=== PATIENT | female | born 1930 | race Caucasian/White ===

== ENCOUNTER → 2017-04-13 | Outpatient (CLI) | payer MEDICARE | END | disposition home or self-care (01) | LOC: LABWHC1 15:15 | PROVIDERS: ATTEND Internal Medicine | DX: E03.9 Hypothyroidism, unspecified (principal); N18.3 Chronic kidney disease, stage 3 (moderate) | CPT/HCPCS: 36415; 82330; 83970 ==

== ENCOUNTER 2017-06-21 13:10 | Inpatient (IN) | payer MEDICARE ==
--- NOTE | 2017-06-21 13:39 | ED ---
SOB HPI - General Chief Complaint: Shortness of Breath Stated Complaint: sob, hX CHF Time Seen by Provider: 06/21/17 13:26 Source: patient, EMS Mode of arrival: EMS Limitations: no limitations - History of Present Illness Initial Comments: This is an 86-year-old female with a history of CHF, diabetes, hypertension or presents here department for shortness of breath or she states has been gradually worsening over the last day. She says that she typically does not wear oxygen however has required it today. She states it is worse with exertion and better with rest. Does not seem to be related to position. She has no associated chest pain however does complain of some lightheadedness at times. She does admit to some lower extremity swelling however mild. She states that she has not had a CHF exacerbation in 2 years. Her defensive line coach is Dr. Daigle. She denies any recent travel or surgeries. No history of PE or DVT. No other complaints. - Related Data Home Medications Medication Instructions Recorded Confirmed Bimatoprost [Lumigan .01% Ophth 1 drop RIGHT EYE HS 03/25/14 06/21/17 Soln] Carvedilol [Coreg] 3.125 mg PO BID 03/25/14 06/21/17 Furosemide [Lasix] 20 mg PO DAILY 03/25/14 06/21/17 Levothyroxine Sodium [Synthroid] 50 mcg PO DAILY 03/25/14 06/21/17 Methocarbamol [Robaxin] 500 mg PO TID PRN 03/25/14 06/21/17 glipiZIDE [Glucotrol] 10 mg PO AC-BID 03/25/14 06/21/17 sitaGLIPtin [Januvia] 100 mg PO DAILY 03/25/14 06/21/17 Allopurinol [Allopurinol] 200 mg PO DAILY 03/07/15 06/21/17 Vit C/E/Zn/Coppr/Lutein/Zeaxan 1 cap PO BID 03/07/15 06/21/17 [Preservision Areds 2 Softgel] oxyCODONE-APAP 5-325MG [Percocet 1 tab PO TID PRN 06/21/17 06/21/17 5-325 mg] Allergies Allergy/AdvReac Type Severity Reaction Status Date / Time aspirin Allergy Unknown Verified 06/21/17 14:22 bee pollen [Bee Pollen] Allergy Anaphylaxis Verified 06/21/17 14:22 celecoxib [From Celebrex] Allergy Unknown Verified 06/21/17 14:22 URIC ACIDS AdvReac GOUT Uncoded 06/21/17 13:23 Review of Systems ROS Statement: Those systems with pertinent positive or pertinent negative responses have been documented in the HPI. ROS Other: All systems not noted in ROS Statement are negative. Past Medical History Past Medical History: Coronary Artery Disease (CAD), Cancer, Heart Failure, Diabetes Mellitus, GI Bleed, Hyperlipidemia, Hypertension, Osteoarthritis (OA), Pulmonary Embolus (PE), Sleep Apnea/CPAP/BIPAP, Thyroid Disorder Additional Past Medical History / Comment(s): gout, chronic pain in back hip and leg, diverticulitis, LT EYE BLIND,GLAUCOMA, MAC DEGEBERATION, MURMUR, DIVERTICULAR DX.OVARIAN CYSTS,ANEMIA,SKIN CA,ANEMIA, TRACHEBRONCHITIS WITH REACTIVE BRONCHOSPSM.used to use cpap machine but stopped 1 year ago d/t mask not fitting well. History of Any Multi-Drug Resistant Organisms: None Reported Past Surgical History: Appendectomy, Bowel Resection, Breast Surgery, Cholecystectomy, Coronary Bypass/CABG, Hysterectomy, Orthopedic Surgery, Pacemaker, Tonsillectomy Additional Past Surgical History / Comment(s): pacemaker, AORTIC VALVE REPLACEMENT(TISSUE), CYST REMOVED FROM HAND/HEAD,BOWEL RESECTION D/T DIVERTICULITIS.GEENFIELD FILTER Past Anesthesia/Blood Transfusion Reactions: No Reported Reaction Type of Cardiac Device: Permanent Pacemaker Device Placement Date:: 2010 Past Psychological History: Depression Smoking Status: Former smoker Past Alcohol Use History: None Reported Past Drug Use History: None Reported - Past Family History Father Family Medical History: Cancer Additional Family Medical History / Comment(s): ALCOHOLIC-- 1969 Mother Family Medical History: Cancer, Coronary Artery Disease (CAD), Dementia, Diabetes Mellitus Additional Family Medical History / Comment(s): 1984 General Exam - General Exam Comments Initial Comments: Constitutional: Awake alert Appears comfortable Head: Normocephalic atraumatic Eyes: no conjunctival injection No scleral icterus EOMI Neck: Mild JVD Supple Heart: Regular rate rhythm normal S1-S2 no murmurs Lungs: Clear to auscultation bilaterally No wheezing patient has decreased breath sounds bilaterally Abdomen: Soft nondistended nontender Extremities: Bilateral lower extremity edema that appears chronic DP pulses intact Radial pulses intact Neuro: A&Ox3 No focal neurologic deficits Psych: Appropriate mood and affect Limitations: no limitations Course Vital Signs 06/21/17 13:19 Temperature 98.1 F Pulse Rate 84 Respiratory 20 Rate Blood Pressure 158/68 O2 Sat by Pulse 98 Oximetry - Reevaluation(s) Reevaluation #1: 06/21/17 14:13 EKG showing what appears to be atrial flutter with a controlled rate of 83. Kylah right bundle-branch block. No abnormal ST segment changes or T-wave inversions. QTC is 524. Other intervals are normal Reevaluation #2: 06/21/17 15:07 Patient is comfortable at rest however is requiring 4 L of oxygen. Her BNP is elevated from her baseline. Chest x-ray was unremarkable. She does have a history of PE and I am considering this as an etiology however the patient is unable to undergo a CTA because of her renal function. I did put in for a V/Q however since she is also in what appears to be atrial flutter going to start her on heparin anyway. Her rate is controlled. Going to admit her for CHF exacerbation and possible PE for a VQ scan. Medical Decision Making - Medical Decision Making This is an 86 show female who presents emergency department for shortness of breath. She was requiring quite a bit of oxygen on arrival. She is comfortable on 4 L at rest however gets very dyspneic with exertion. BNP was elevated however chest x-ray was unremarkable. With history of PID consider pulmonary embolism however the patient was unable to undergo CTA because of her renal function. V/Q was put in for evaluation. The patient was started on heparin because of what appears to be atrial flutter with a controlled rate and possibility of PE. Otherwise she is hemodynamically stable. We'll admit her for suspected CHF and possible PE. She was given Lasix. Dr. Daigle was placed on consult. Dr. Guillen accepts the admission. - Lab Data Result diagrams: 06/21/17 13:55 06/21/17 13:55 Lab Results 06/21/17 06/21/17 06/21/17 Range/Units 13:55 13:55 13:55 WBC 9.8 (3.8-10.6) k/uL RBC 3.69 L (3.80-5.40) m/uL Hgb 10.2 L (11.4-16.0) gm/dL Hct 31.7 L (34.0-46.0) % MCV 85.8 (80.0-100.0) fL MCH 27.6 (25.0-35.0) pg MCHC 32.1 (31.0-37.0) g/dL RDW 15.8 H (11.5-15.5) % Plt Count 197 (150-450) k/uL Neutrophils % 72 % Lymphocytes % 16 % Monocytes % 5 % Eosinophils % 4 % Basophils % 1 % Neutrophils # 7.1 (1.3-7.7) k/uL Lymphocytes # 1.6 (1.0-4.8) k/uL Monocytes # 0.5 (0-1.0) k/uL Eosinophils # 0.4 (0-0.7) k/uL Basophils # 0.1 (0-0.2) k/uL Hypochromasia Marked Poikilocytosis Moderate PT 11.3 (9.0-12.0) sec INR 1.1 (<1.2) D-Dimer (<0.60) mg/L FEU Sodium (137-145) mmol/L Potassium (3.5-5.1) mmol/L Chloride (98-107) mmol/L Carbon Dioxide (22-30) mmol/L Anion Gap mmol/L BUN (7-17) mg/dL Creatinine (0.52-1.04) mg/dL Est GFR (MDRD) Af Amer (>60 ml/min/1.73 sqM) Est GFR (MDRD) Non-Af (>60 ml/min/1.73 sqM) Glucose (74-99) mg/dL Calcium (8.4-10.2) mg/dL Magnesium (1.6-2.3) mg/dL Total Bilirubin (0.2-1.3) mg/dL AST (14-36) U/L ALT (9-52) U/L Alkaline Phosphatase (38-126) U/L CK-MB (CK-2) 1.2 (0.0-2.4) ng/mL Troponin I 0.034 (0.000-0.034) ng/mL NT-Pro-B Natriuret Pep pg/mL Total Protein (6.3-8.2) g/dL Albumin (3.5-5.0) g/dL 06/21/17 06/21/17 06/21/17 Range/Units 13:55 13:55 13:55 WBC (3.8-10.6) k/uL RBC (3.80-5.40) m/uL Hgb (11.4-16.0) gm/dL Hct (34.0-46.0) % MCV (80.0-100.0) fL MCH (25.0-35.0) pg MCHC (31.0-37.0) g/dL RDW (11.5-15.5) % Plt Count (150-450) k/uL Neutrophils % % Lymphocytes % % Monocytes % % Eosinophils % % Basophils % % Neutrophils # (1.3-7.7) k/uL Lymphocytes # (1.0-4.8) k/uL Monocytes # (0-1.0) k/uL Eosinophils # (0-0.7) k/uL Basophils # (0-0.2) k/uL Hypochromasia Poikilocytosis PT (9.0-12.0) sec INR (<1.2) D-Dimer 0.92 H (<0.60) mg/L FEU Sodium 138 (137-145) mmol/L Potassium 3.4 L (3.5-5.1) mmol/L Chloride 106 (98-107) mmol/L Carbon Dioxide 20 L (22-30) mmol/L Anion Gap 12 mmol/L BUN 24 H (7-17) mg/dL Creatinine 1.20 H (0.52-1.04) mg/dL Est GFR (MDRD) Af Amer 52 (>60 ml/min/1.73 sqM) Est GFR (MDRD) Non-Af 43 (>60 ml/min/1.73 sqM) Glucose 324 H (74-99) mg/dL Calcium 8.8 (8.4-10.2) mg/dL Magnesium 2.0 (1.6-2.3) mg/dL Total Bilirubin 1.2 (0.2-1.3) mg/dL AST 38 H (14-36) U/L ALT 29 (9-52) U/L Alkaline Phosphatase 179 H (38-126) U/L CK-MB (CK-2) (0.0-2.4) ng/mL Troponin I (0.000-0.034) ng/mL NT-Pro-B Natriuret Pep 2270 pg/mL Total Protein 6.1 L (6.3-8.2) g/dL Albumin 3.6 (3.5-5.0) g/dL Disposition Clinical Impression: Atrial flutter, Systolic congestive heart failure, Dyspnea Disposition: ADMITTED IP TO THIS HOSP Condition: Stable Referrals: Melanie Ledbetter MD [Primary Care Provider] - 1-2 days
[2017-06-21 14:23] LABS: INR 1.1 (<1.2); Prothrombin Time 11.3 sec (9.0-12.0)
[2017-06-21 14:24] LABS: Basophils # (A) 0.1 k/uL (0-0.2); Basophils % (A) 1 %; CHCM 31.4; Eosinophils # (A) 0.4 k/uL (0-0.7); Eosinophils % (A) 4 %; HCT 31.7 % (34.0-46.0); HDW 4.09; HGB 10.2 gm/dL (11.4-16.0); Hypochromasia Marked; Luc % (Auto) 2; Lymphocytes # (A) 1.6 k/uL (1.0-4.8); Lymphocytes % (A) 16 %; MCH 27.6 pg (25.0-35.0); MCHC 32.1 g/dL (31.0-37.0); MCV 85.8 fL (80.0-100.0); Mean Platelet Volume 10.1; Monocytes # (A) 0.5 k/uL (0-1.0); Monocytes % (A) 5 %; Neutrophils # (A) 7.1 k/uL (1.3-7.7); Neutrophils % (A) 72 %; Poikilocytosis Moderate; RBC 3.69 m/uL (3.80-5.40); RDW 15.8 % (11.5-15.5); WBC 9.8 k/uL (3.8-10.6); WBC (Perox) 9.65
[2017-06-21 14:28] LABS: Calcium 8.8 mg/dL (8.4-10.2); Potassium 3.4 mmol/L (3.5-5.1); Total Bilirubin 1.2 mg/dL (0.2-1.3); Total Protein 6.1 g/dL (6.3-8.2)
--- NOTE | 2017-06-21 14:30 | XR ---
EXAMINATION TYPE: XR chest 2V DATE OF EXAM: 06/21/2017 COMPARISON: March 07, 2015 HISTORY: Chest pain TECHNIQUE: Frontal and lateral views of the chest are obtained. FINDINGS: Artificial heart valve is again noted. There is a 2-lead pacer device identified. There is been a sternotomy. There is no pneumothorax or pleural effusion. The cardiac silhouette is within no rmal limits. IMPRESSION: No acute cardiopulmonary process.
[2017-06-21 14:51] LABS: Creatine Kinase MB 1.2 ng/mL (0.0-2.4); Troponin I 0.034 ng/mL (0.000-0.034)
[2017-06-21] MEDS ORDERED: RX INFO: IV CONTRAST WAS GIVEN 1 EACH MISC MISCELLANE PRN (14:54)
[2017-06-21] MEDS ORDERED: HEPARIN SODIUM,PORCINE 5,000 UNIT/ML 1 ML VIAL IV ONE (15:04)
[2017-06-21] MEDS ORDERED: FUROSEMIDE 10 MG/ML 2 ML VIAL IV ONE (15:05)
[2017-06-21] MEDS ORDERED: NALOXONE 0.4 MG/ML 1 ML VIAL IV PRN (15:12)
[2017-06-21] MEDS: HEPARIN SODIUM,PORCINE/D5W PMX 25,000 UNIT in DEXTROSE/WATER 1 500ML.BAG IV SCH (15:44)
[2017-06-21 17:18] LABS: Glucose,Whole Blood 241 mg/dL (75-99)
--- NOTE | 2017-06-21 17:22 | NM ---
EXAMINATION TYPE: NM pul vent and perfuse DATE OF EXAM: 06/21/2017 COMPARISON: Chest x-ray obtained on the same day. HISTORY: Chest pain TECHNIQUE: Utilizing inhalation of 66.4 mCi Tc 99m DTPA aerosol and intravenous injection of 5.5 mCi of Tc 99m MAA, ventilation and perfusion images are acquired post injection in multiple projections. FINDINGS: Normal radiotracer distribution is noted in the lungs. There is no evidence of mismatched defects. IMPRESSION: Low probability of pulmonary embolism.
[2017-06-21] MEDS ORDERED: HEPARIN SODIUM,PORCINE 5,000 UNIT/ML 1 ML VIAL IV PRN (18:17)
[2017-06-21] MEDS: INSULIN DETEMIR 100 UNIT/ML 10 ML VIAL SQ SCH (18:29)
[2017-06-21 20:29] LABS: Glucose,Whole Blood 297 mg/dL (75-99)
[2017-06-21] MEDS: CARVEDILOL 3.125 MG TAB PO SCH (20:36)
[2017-06-21] MEDS: VIT A,C & E-LUTEIN-MINERALS 1 EACH TAB PO SCH (20:36)
[2017-06-21] MEDS: ALLOPURINOL 100 MG TAB PO SCH (20:36)
[2017-06-21] MEDS: INSULIN LISPRO (humaLOG) 300 UNIT/3 ML VIAL SQ SCH (20:39)
[2017-06-21] MEDS: LATANOPROST 0.005% OPHTH DROPS 2.5 ML BTL RIGHT EYE SCH (20:40)
[2017-06-21 22:46] LABS: Creatine Kinase MB 1.6 ng/mL (0.0-2.4)
[2017-06-21 22:51] LABS: Troponin I 0.037 ng/mL (0.000-0.034)
[2017-06-21] MEDS: MELATONIN 3 MG TABLET PO SCH (23:00)
[2017-06-22] MEDS ORDERED: FUROSEMIDE 10 MG/ML 4 ML VIAL IV SCH
--- NOTE | 2017-06-22 01:42 | P.HPIM ---
History of Present Illness H&P Date: 06/21/17 Chief Complaint: Shortness of breath Recent is a 86-year-old female with a known history of coronary artery disease status post bypass graft in 2010 and ACD placement, hypertension, diabetes type 2 [id number] and multiple other medical problems came to the hospital with complaints of worsening Short of breath since yesterday. Apparently patient has been having short of breath and dizziness for the past few months. Denied any fever or chills. Denied any chest pain. No nausea or vomiting abdominal pain. She says that she typically does not wear oxygen however has required it today. She states it is worse with exertion and better with rest. Does not seem to be related to position. She has no associated chest pain however does complain of some lightheadedness at times. She does admit to some lower extremity swelling however mild. She states that she has not had a CHF exacerbation in 2 years. Her hand salter is Dr. Daigle. She denies any recent travel or surgeries. No history of PE or DVT. No other complaints. BNP 2270, troponin 0.037. Hemoglobin 10.2 potassium 3.4 EKG showed atrial flutter Chest x-ray showed no acute process VQ scan showed low powered for PE Review of Systems CONSTITUTIONAL: No fever, no loss of appetite. Patient feels tired. HEENT: No recent visual problems or hearing problems. Denied any sore throat. CARDIOVASCULAR: No chest pain, shortness of breath present. orthopnea, PND, no palpitations, no syncope. PULMONARY: , No cough or sputum production no hemoptysis. Patient does have shortness of breath GASTROINTESTINAL: No diarrhea, no nausea, no vomiting, no abdominal pain. Normoactive bowel sounds. NEUROLOGICAL: No headaches, no weakness, no numbness. Dizziness. No lightheadedness no numbness or tingling. HEMATOLOGICAL: Denies any bleeding or petechiae. GENITOURINARY: Denies any burning micturition, frequency, or urgency. MUSCULOSKELETAL/RHEUMATOLOGICAL: Denies any joint pain, swelling, or any muscle pain. ENDOCRINE: Denies any polyuria or polydipsia. The rest of the 14-point review of systems is negative. Past Medical History Past Medical History: Coronary Artery Disease (CAD), Cancer, Heart Failure, Diabetes Mellitus, GI Bleed, Hypertension, Osteoarthritis (OA), Pulmonary Embolus (PE), Sleep Apnea/CPAP/BIPAP, Thyroid Disorder Additional Past Medical History / Comment(s): gout, chronic pain in back hip and leg, diverticulitis, LT EYE BLIND,GLAUCOMA, MAC DEGEBERATION, MURMUR, DIVERTICULAR DX.OVARIAN CYSTS,ANEMIA,SKIN CA,ANEMIA, TRACHEBRONCHITIS WITH REACTIVE BRONCHOSPSM.used to use cpap machine but stopped 1 year ago d/t mask not fitting well. History of Any Multi-Drug Resistant Organisms: None Reported Past Surgical History: Appendectomy, Bowel Resection, Breast Surgery, Cholecystectomy, Coronary Bypass/CABG, Hysterectomy, Orthopedic Surgery, Pacemaker, Tonsillectomy Additional Past Surgical History / Comment(s): pacemaker, AORTIC VALVE REPLACEMENT(TISSUE), CYST REMOVED FROM HAND/HEAD,BOWEL RESECTION D/T DIVERTICULITIS.GEENFIELD FILTER Past Anesthesia/Blood Transfusion Reactions: No Reported Reaction Type of Cardiac Device: Permanent Pacemaker Device Placement Date:: 2010 Smoking Status: Former smoker - Past Family History Father Family Medical History: Cancer Additional Family Medical History / Comment(s): ALCOHOLIC-- 1969 Mother Family Medical History: Cancer, Coronary Artery Disease (CAD), Dementia, Diabetes Mellitus Additional Family Medical History / Comment(s): 1984 Medications and Allergies Home Medications Medication Instructions Recorded Confirmed Type Bimatoprost [Lumigan .01% Ophth 1 drop RIGHT EYE HS 03/25/14 06/21/17 History Soln] Carvedilol [Coreg] 3.125 mg PO BID 03/25/14 06/21/17 History Furosemide [Lasix] 80 mg PO BID 03/25/14 06/21/17 History glipiZIDE [Glucotrol] 10 mg PO AC-BID 03/25/14 06/21/17 History sitaGLIPtin [Januvia] 100 mg PO DAILY 03/25/14 06/21/17 History Allopurinol [Allopurinol] 200 mg PO BID 03/07/15 06/21/17 History Vit C/E/Zn/Coppr/Lutein/Zeaxan 2 tab PO BID 03/07/15 06/21/17 History [Preservision Areds 2 Softgel] Insulin Detemir [Levemir] 100 unit SQ AC-SUPPER 06/21/17 06/21/17 History Allergies Allergy/AdvReac Type Severity Reaction Status Date / Time aspirin Allergy Unknown Verified 06/21/17 14:22 bee pollen [Bee Pollen] Allergy Anaphylaxis Verified 06/21/17 14:22 celecoxib [From Celebrex] Allergy Unknown Verified 06/21/17 14:22 URIC ACIDS AdvReac GOUT Uncoded 06/21/17 13:23 Physical Exam Vitals: Vital Signs Temp Pulse Pulse Resp BP BP Pulse Ox 06/21/17 17:20 97 F L 71 20 160/72 99 06/21/17 15:27 98.0 F 88 18 154/72 99 06/21/17 13:19 98.1 F 84 20 158/68 98 Intake and Output 06/21/17 06/21/17 06/21/17 06:59 14:59 22:59 Intake Total 40 Output Total 500 Balance -460 Intake: IV 40 Heparin Sodium,Porcine/ 40 D5w Pmx 25,000 unit In Dextrose/Water 1 500ml. bag @ 11 UNITS/KG/HR 19. 95 mls/hr IV .Q24H [facility] Rx #:[id number] Output: Urine 500 Other: Weight 90.718 kg Patient Weight 06/22/17 06:59 Weight 90.718 kg PHYSICAL EXAMINATION: Patient is lying in the bed comfortably, no acute distress, awake alert and oriented.. HEENT: Normocephalic. Neck is supple. Pupils reactive. Nostrils clear. Oral cavity is moist. Ears reveal no drainage. Neck reveals no JVD, carotid bruits, or thyromegaly. CHEST EXAMINATION: Trachea is central. Symmetrical expansion. Lung nicolas clear to auscultation and percussion. CARDIAC: Normal S1, S2 with no gallops. No murmurs ABDOMEN: Soft. Bowel sounds normal. No organomegaly. No abdominal bruits. Extremities 1+ edema. No clubbing or cyanosis Neurologically awake, alert, oriented x3 with well-coordinated movements. Skin: no rash or skin lesions Musculoskeletal: no joint swelling or deformity. Results CBC & Chem 7: 06/21/17 13:55 06/21/17 13:55 Labs: Abnormal Lab Results - Last 24 Hours (Table) 06/21/17 06/21/17 06/21/17 Range/Units 13:55 13:55 13:55 RBC 3.69 L (3.80-5.40) m/uL Hgb 10.2 L (11.4-16.0) gm/dL Hct 31.7 L (34.0-46.0) % RDW 15.8 H (11.5-15.5) % D-Dimer 0.92 H (<0.60) mg/L FEU Potassium 3.4 L (3.5-5.1) mmol/L Carbon Dioxide 20 L (22-30) mmol/L BUN 24 H (7-17) mg/dL Creatinine 1.20 H (0.52-1.04) mg/dL Glucose 324 H (74-99) mg/dL POC Glucose (mg/dL) (75-99) mg/dL AST 38 H (14-36) U/L Alkaline Phosphatase 179 H (38-126) U/L Total Protein 6.1 L (6.3-8.2) g/dL 06/21/17 06/21/17 Range/Units 17:16 20:28 RBC (3.80-5.40) m/uL Hgb (11.4-16.0) gm/dL Hct (34.0-46.0) % RDW (11.5-15.5) % D-Dimer (<0.60) mg/L FEU Potassium (3.5-5.1) mmol/L Carbon Dioxide (22-30) mmol/L BUN (7-17) mg/dL Creatinine (0.52-1.04) mg/dL Glucose (74-99) mg/dL POC Glucose (mg/dL) 241 H 297 H (75-99) mg/dL AST (14-36) U/L Alkaline Phosphatase (38-126) U/L Total Protein (6.3-8.2) g/dL Thrombosis Risk Factor Assmnt - Choose All That Apply Each Factor Represents 1 point: Heart failure (<1month) Each Risk Factor Represents 3 Points: Age 75 years or older Thrombosis Risk Factor Assessment Total Risk Factor Score: 4 Thrombosis Risk Factor Assessment Level: Moderate Risk Assessment and Plan Plan: #1 shortness of breath secondary to acute CHF exacerbation. EF ejection fraction unknown #2 atrial flutter #3 history of coronary artery disease and bypass graft. AICD placement as well #4 history of aortic valve replacement #4 hypokalemia #5 hypertension #6 diabetes type 2 [id number] #7 hypothyroidism #8 obstructive sleep apnea on CPAP at home #9 acute on chronic kidney disease stage III . creatinine 1.2 #10 obesity with BMI 34.3 #11 history of gout stable Plan: Patient will be continued on IV Lasix 20 mg twice a day. Continue with heparin drip for atrial flutter. Continue with Coreg. Patient is ALLERGIC to aspirin. Continue with telemetry monitoring and serial EKGs and troponins. Cardiology has been consulted. VQ scan showed low probability for PE. We'll replace potassium. Will check TSH level. Continue to follow closely and further recommendations based on the clinical course. Cardiology has been consulted. Prognosis is guarded with multiple medical problems and comorbid conditions. Time with Patient: Greater than 30
[2017-06-22 02:27] LABS: Creatine Kinase MB 1.6 ng/mL (0.0-2.4)
[2017-06-22 02:30] LABS: Troponin I 0.046 ng/mL (0.000-0.034)
[2017-06-22] MEDS: ACETAMINOPHEN TAB 325 MG TAB PO PRN ×3 (04:30→17:58)
[2017-06-22 05:08] LABS: Glucose,Whole Blood 177 mg/dL (75-99)
[2017-06-22 05:17] LABS: Basophils # (A) 0.1 k/uL (0-0.2); Basophils % (A) 1 %; CH 26.9; CHCM 31.2; Eosinophils # (A) 0.5 k/uL (0-0.7); Eosinophils % (A) 6 %; HCT 27.1 % (34.0-46.0); HDW 4.11; Hypochromasia Marked; Luc # (Auto) 0.22; Luc % (Auto) 3; Lymphocytes # (A) 1.8 k/uL (1.0-4.8); Lymphocytes % (A) 22 %; MCH 27.5 pg (25.0-35.0); MCHC 31.9 g/dL (31.0-37.0); MCV 86.2 fL (80.0-100.0); Mean Platelet Volume 10.4; Monocytes # (A) 0.6 k/uL (0-1.0); Monocytes % (A) 8 %; Neutrophils # (A) 4.8 k/uL (1.3-7.7); Neutrophils % (A) 60 %; Poikilocytosis Moderate; RBC 3.15 m/uL (3.80-5.40); RDW 15.6 % (11.5-15.5); WBC (Perox) 8.16
[2017-06-22 05:21] LABS: HGB 8.7 gm/dL (11.4-16.0)
[2017-06-22 06:02] LABS: Calcium 8.8 mg/dL (8.4-10.2); Potassium 3.5 mmol/L (3.5-5.1)
[2017-06-22] MEDS: POTASSIUM CHLORIDE ER 20 MEQ TAB.ER PO SCH ×2 (07:47→22:25)
[2017-06-22] MEDS: ALLOPURINOL 100 MG TAB PO SCH ×2 (07:47→22:25)
[2017-06-22] MEDS: VIT A,C & E-LUTEIN-MINERALS 1 EACH TAB PO SCH ×2 (07:47→17:18)
[2017-06-22] MEDS: CARVEDILOL 3.125 MG TAB PO SCH ×2 (07:47→17:18)
[2017-06-22] MEDS: INSULIN LISPRO (humaLOG) 300 UNIT/3 ML VIAL SQ SCH ×4 (07:48→21:03)
[2017-06-22] MEDS: glipiZIDE 10 MG TAB PO SCH ×2 (08:46→17:18)
[2017-06-22] MEDS: FUROSEMIDE 10 MG/ML 2 ML VIAL IV SCH ×2 (08:46→21:03)
[2017-06-22] MEDS: LINAGLIPTIN 5 MG TABLET PO SCH (08:46)
--- NOTE | 2017-06-22 09:00 | P.CRDCN ---
History of Present Illness Consult date: 06/22/17 Chief complaint: Shortness of breath History of present illness: This is a pleasant 86-year-old female patient who sees Dr. Daigle in the office on regular basis with a past medical history significant for CAD and prior coronary artery bypass grafting with unknown details at this point, known severe ischemic cardiomyopathy and status post ICD , diabetes, hypertension, dyslipidemia, and chronic atrial fibrillation presented to the hospital complaining of progressive dyspnea. The patient has been experiencing progressive exertional dyspnea as well as orthopnea and also bilateral lower extremities edema started a few weeks ago. Her symptoms got worse over the last several days and she decided to come to the hospital. She states that she was not having any chest discomfort to yesterday when she developed a brief episode of chest discomfort. The patient stated that she was taking all her medications. She was not compliant with her diet. She did not have any recent history of upper respiratory infection. The chest x-ray came in to be unremarkable. The BNP came in to be elevated. The EKG showed atrial fibrillation was controlled heart rate with a right bundle branch block and nonspecific changes most prominent in the lateral leads. The patient was started on Lasix. Her hemoglobin is low. She is not on any anticoagulation for the atrial fibrillation. We will obtain the previous medical records from the office for further clarification white the patient is not on anticoagulation. Currently she is on aspirin and heparin and we will continue both of them. I would continue the heparin for additional 24 hours. She is on Coreg and we'll continue that. Past Medical History Past Medical History: Coronary Artery Disease (CAD), Cancer, Heart Failure, Diabetes Mellitus, GI Bleed, Hypertension, Osteoarthritis (OA), Pulmonary Embolus (PE), Sleep Apnea/CPAP/BIPAP, Thyroid Disorder Additional Past Medical History / Comment(s): gout, chronic pain in back hip and leg, diverticulitis, LT EYE BLIND,GLAUCOMA, MAC DEGEBERATION, MURMUR, DIVERTICULAR DX.OVARIAN CYSTS,ANEMIA,SKIN CA,ANEMIA, TRACHEBRONCHITIS WITH REACTIVE BRONCHOSPSM.used to use cpap machine but stopped 1 year ago d/t mask not fitting well. History of Any Multi-Drug Resistant Organisms: None Reported Past Surgical History: Appendectomy, Bowel Resection, Breast Surgery, Cholecystectomy, Coronary Bypass/CABG, Hysterectomy, Orthopedic Surgery, Pacemaker, Tonsillectomy Additional Past Surgical History / Comment(s): pacemaker, AORTIC VALVE REPLACEMENT(TISSUE), CYST REMOVED FROM HAND/HEAD,BOWEL RESECTION D/T DIVERTICULITIS.GEENFIELD FILTER Past Anesthesia/Blood Transfusion Reactions: No Reported Reaction Type of Cardiac Device: Permanent Pacemaker Device Placement Date:: 2010 Smoking Status: Former smoker - Past Family History Father Family Medical History: Cancer Additional Family Medical History / Comment(s): ALCOHOLIC-- 1969 Mother Family Medical History: Cancer, Coronary Artery Disease (CAD), Dementia, Diabetes Mellitus Additional Family Medical History / Comment(s): 1984 Medications and Allergies Home Medications Medication Instructions Recorded Confirmed Type Bimatoprost [Lumigan .01% Ophth 1 drop RIGHT EYE HS 03/25/14 06/21/17 History Soln] Carvedilol [Coreg] 3.125 mg PO BID 03/25/14 06/21/17 History Furosemide [Lasix] 80 mg PO BID 03/25/14 06/21/17 History glipiZIDE [Glucotrol] 10 mg PO AC-BID 03/25/14 06/21/17 History sitaGLIPtin [Januvia] 100 mg PO DAILY 03/25/14 06/21/17 History Allopurinol [Allopurinol] 200 mg PO BID 03/07/15 06/21/17 History Vit C/E/Zn/Coppr/Lutein/Zeaxan 2 tab PO BID 03/07/15 06/21/17 History [Preservision Areds 2 Softgel] Insulin Detemir [Levemir] 100 unit SQ AC-SUPPER 06/21/17 06/21/17 History Allergies Allergy/AdvReac Type Severity Reaction Status Date / Time aspirin Allergy Unknown Verified 06/21/17 14:22 bee pollen [Bee Pollen] Allergy Anaphylaxis Verified 06/21/17 14:22 celecoxib [From Celebrex] Allergy Unknown Verified 06/21/17 14:22 URIC ACIDS AdvReac GOUT Uncoded 06/21/17 13:23 Physical Exam Vitals: Vital Signs Temp Pulse Pulse Resp BP BP Pulse Ox 06/22/17 08:00 97.3 F L 78 20 118/73 97 06/22/17 04:16 97.9 F 82 20 133/67 97 06/22/17 00:00 76 18 137/66 97 06/21/17 20:00 97.1 F L 74 18 164/70 98 06/21/17 17:20 97 F L 71 20 160/72 99 06/21/17 15:27 98.0 F 88 18 154/72 99 06/21/17 13:19 98.1 F 84 20 158/68 98 Intake and Output 06/21/17 06/22/17 06/22/17 22:59 06:59 14:59 Intake Total 40 334.532 Output Total 500 0 Balance -460 334.532 Intake: IV 40 Heparin Sodium,Porcine/ 40 D5w Pmx 25,000 unit In Dextrose/Water 1 500ml. bag @ 11 UNITS/KG/HR 19. 95 mls/hr IV .Q24H [facility] Rx #:[id number] Intake, IV Titration 334.532 Amount Heparin Sodium,Porcine/ 334.532 D5w Pmx 25,000 unit In Dextrose/Water 1 500ml. bag @ 11 UNITS/KG/HR 19. 95 mls/hr IV .Q24H [facility] Rx #:[id number] Output: Urine 500 0 Other: Weight 93.8 kg - Constitutional General appearance: no acute distress - Respiratory Respiratory: bilateral: CTA - Cardiovascular Rhythm: irregularly irregular Heart sounds: normal: S1, S2 Abnormal Heart Sounds: systolic murmur Results 06/22/17 05:09 06/22/17 05:09 Cardiac Enzymes 06/21/17 06/21/17 06/21/17 Range/Units 13:55 13:55 22:05 AST 38 H (14-36) U/L CK-MB (CK-2) 1.2 1.6 (0.0-2.4) ng/mL Troponin I 0.034 0.037 H* (0.000-0.034) ng/mL 06/22/17 Range/Units 01:34 AST (14-36) U/L CK-MB (CK-2) 1.6 (0.0-2.4) ng/mL Troponin I 0.046 H* (0.000-0.034) ng/mL Coagulation 06/21/17 06/21/17 06/22/17 Range/Units 13:55 22:05 05:09 PT 11.3 (9.0-12.0) sec APTT 35.0 H 40.2 H (22.0-30.0) sec CBC 06/21/17 06/22/17 Range/Units 13:55 05:09 WBC 9.8 8.0 (3.8-10.6) k/uL RBC 3.69 L 3.15 L (3.80-5.40) m/uL Hgb 10.2 L 8.7 L D (11.4-16.0) gm/dL Hct 31.7 L 27.1 L (34.0-46.0) % Plt Count 197 169 (150-450) k/uL Comprehensive Metabolic Panel 06/21/17 06/22/17 Range/Units 13:55 05:09 Sodium 138 139 (137-145) mmol/L Potassium 3.4 L 3.5 (3.5-5.1) mmol/L Chloride 106 107 (98-107) mmol/L Carbon Dioxide 20 L 25 (22-30) mmol/L BUN 24 H 23 H (7-17) mg/dL Creatinine 1.20 H 1.20 H (0.52-1.04) mg/dL Glucose 324 H 166 H (74-99) mg/dL Calcium 8.8 8.8 (8.4-10.2) mg/dL AST 38 H (14-36) U/L ALT 29 (9-52) U/L Alkaline Phosphatase 179 H (38-126) U/L Total Protein 6.1 L (6.3-8.2) g/dL Albumin 3.6 (3.5-5.0) g/dL Current Medications Generic Name Dose Route Start Last Admin Trade Name Freq PRN Reason Stop Dose Admin Acetaminophen 650 mg 06/22/17 03:57 06/22/17 04:30 Tylenol Tab PO 650 mg Q6HR PRN Administration Fever and/ or Pain Allopurinol 200 mg 06/21/17 21:00 06/22/17 07:47 Zyloprim PO 200 mg BID [facility]ENE Administration Carvedilol 3.125 mg 06/21/17 18:30 06/22/17 07:47 Coreg PO 3.125 mg BID-W/MEALS [facility] Administration Furosemide 20 mg 06/22/17 09:00 06/22/17 08:46 Lasix IV 20 mg Q12HR [facility] Administration Glipizide 10 mg 06/22/17 07:30 06/22/17 08:46 Glucotrol PO 10 mg AC-BID [facility] Administration Heparin Sodium (Porcine) 0 unit 06/21/17 18:17 Heparin IV PER PROTOCOL PRN PER PROTOCOL Protocol Heparin Sodium/Dextrose 25,000 500 mls @ 19.95 mls/hr 06/21/17 15:15 06:28 unit/ IV Solution IV 16 units/kg/hr .Q24H [facility] 29.02 mls/hr Protocol Titration 11 UNITS/KG/HR Insulin Detemir 100 unit 06/21/17 18:30 06/21/17 18:29 Levemir SQ 100 unit AC-SUPPER [facility] Administration Insulin Human Lispro 0 unit 06/21/17 21:00 06/22/17 07:48 Humalog SQ 2 unit ACHS [facility] Administration Protocol Latanoprost 1 drops 06/21/17 21:00 06/21/17 20:40 Xalatan 0.005% RIGHT EYE 1 drops HS [facility] Administration Linagliptin 5 mg 06/22/17 09:00 06/22/17 08:46 Tradjenta PO 5 mg DAILY [facility] Administration Melatonin 6 mg 06/21/17 21:00 06/21/17 23:00 Melatonin PO 6 mg HS [facility] Administration Miscellaneous Information 1 each 06/21/17 14:54 Rx Info: Iv Contrast Was Given MISCELLANE 06/23/17 14:55 DAILY PRN Per Protocol Multivitamins/Minerals 2 each 06/21/17 18:30 06/22/17 07:47 Ivite PO 2 each BID-W/MEALS [facility] Administration Naloxone HCl 0.2 mg 06/21/17 15:12 Narcan IV Q2M PRN Opioid Reversal Potassium Chloride 20 meq 06/22/17 09:00 06/22/17 07:47 K-Dur 20 PO 06/23/17 09:01 20 meq BID IRENE Administration Intake and Output 06/21/17 06/22/17 06/22/17 22:59 06:59 14:59 Intake Total 40 334.532 Output Total 500 0 Balance -460 334.532 Intake: IV 40 Heparin Sodium,Porcine/ 40 D5w Pmx 25,000 unit In Dextrose/Water 1 500ml. bag @ 11 UNITS/KG/HR 19. 95 mls/hr IV .Q24H [facility] Rx #:[id number] Intake, IV Titration 334.532 Amount Heparin Sodium,Porcine/ 334.532 D5w Pmx 25,000 unit In Dextrose/Water 1 500ml. bag @ 11 UNITS/KG/HR 19. 95 mls/hr IV .Q24H [facility] Rx #:[id number] Output: Urine 500 0 Other: Weight 93.8 kg 06/22/17 05:09 06/22/17 05:09 Assessment and Plan Plan: This is a pleasant 86-year-old female patient was known CAD and prior CABG as well as multiple comorbid conditions who presented to the hospital was progressive dyspnea and was diagnosed was congestive heart failure exacerbation. I will obtain an echocardiogram to assess the LV function. Continue diuresing the patient gently. Continue monitor the kidney function and electrolytes. Obtain the previous medical records from the office. Continue following up with her
[2017-06-22] MEDS: HEPARIN SODIUM,PORCINE/D5W PMX 25,000 UNIT in DEXTROSE/WATER 1 500ML.BAG IV SCH (10:37)
[2017-06-22 12:36] LABS: Glucose,Whole Blood 241 mg/dL (75-99)
[2017-06-22] MEDS: LEVOTHYROXINE 75 MCG TAB PO SCH (13:14)
[2017-06-22] MEDS ORDERED: FUROSEMIDE 10 MG/ML 4 ML VIAL IV STA (16:04)
[2017-06-22 16:42] LABS: Glucose,Whole Blood 167 mg/dL (75-99)
[2017-06-22] MEDS: INSULIN DETEMIR 100 UNIT/ML 10 ML VIAL SQ SCH (17:18)
[2017-06-22 20:51] LABS: Glucose,Whole Blood 185 mg/dL (75-99)
[2017-06-22 20:52] LABS: Hemoglobin A1C 9.8 % (4.2-6.1)
[2017-06-22] MEDS: LATANOPROST 0.005% OPHTH DROPS 2.5 ML BTL RIGHT EYE SCH (21:03)
--- NOTE | 2017-06-22 22:04 | P.PN ---
Subjective Principal diagnosis: Acute CHF exacerbation. Patient is a 86-year-old female with a known history of coronary artery disease status post bypass graft in 2010 and ACD placement, hypertension, diabetes type 2 ala-karbmef-ebuytumck and multiple other medical problems came to the hospital with complaints of worsening Short of breath since yesterday. Apparently patient has been having short of breath and dizziness for the past few months. Denied any fever or chills. Denied any chest pain. No nausea or vomiting abdominal pain. She says that she typically does not wear oxygen however has required it today. She states it is worse with exertion and better with rest. Does not seem to be related to position. She has no associated chest pain however does complain of some lightheadedness at times. She does admit to some lower extremity swelling however mild. She states that she has not had a CHF exacerbation in 2 years. 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 She denies any recent travel or surgeries. No history of PE or DVT. No other complaints. BNP 2270, troponin 0.037. Hemoglobin 10.2 potassium 3.4 EKG showed atrial flutter Chest x-ray showed no acute process VQ scan showed low powered for PE 06/22/2017 Patient says that her breathing is better today. Continued on IV diuresis with 20 mg of Lasix twice daily. 2-D echo report is pending. Patient was found to have elevated TSH level and was started on thyroid supplements Patient denied any chest pain or short of breath worsening. No nausea vomiting or abdominal pain. No acute otherwise overnight issues. Objective - Vital Signs Vital signs: Vital Signs Temp 98.4 F 06/22/17 20:00 Pulse 90 06/22/17 20:00 Resp 18 06/22/17 20:00 BP 124/64 06/22/17 20:00 Pulse Ox 99 06/22/17 20:00 Intake & Output 06/22/17 06/22/17 06/23/17 06:59 18:59 06:59 Intake Total 334.532 180.433 Output Total 0 160 Balance 334.532 180.433 -160 Weight 93.8 kg 93.8 kg Intake: IV 60 0.9 ns 60 Intake, IV Titration 334.532 120.433 Amount Heparin Sodium,Porcine/ 334.532 120.433 D5w Pmx 25,000 unit In Dextrose/Water 1 500ml. bag @ 11 UNITS/KG/HR 19. 95 mls/hr IV .Q24H [facility] Rx #:[id number] Output: Urine 0 160 Other: Voiding Method Bedside Commode # Voids 1 # Bowel Movements 0 - Exam PHYSICAL EXAMINATION: Patient is lying in the bed comfortably, no acute distress, awake alert and oriented.. HEENT: Normocephalic. Neck is supple. Pupils reactive. Nostrils clear. Oral cavity is moist. Ears reveal no drainage. Neck reveals no JVD, carotid bruits, or thyromegaly. CHEST EXAMINATION: Trachea is central. Symmetrical expansion. Lung nicolas clear to auscultation and percussion. CARDIAC: Normal S1, S2 with no gallops. No murmurs ABDOMEN: Soft. Bowel sounds normal. No organomegaly. No abdominal bruits. Extremities 1+ edema. No clubbing or cyanosis Neurologically awake, alert, oriented x3 with well-coordinated movements. Skin: no rash or skin lesions Musculoskeletal: no joint swelling or deformity. - Labs CBC & Chem 7: 06/22/17 05:09 06/22/17 05:09 Labs: Abnormal Lab Results - Last 24 Hours (Table) 06/21/17 06/21/17 06/21/17 Range/Units 13:55 22:05 22:05 RBC (3.80-5.40) m/uL Hgb (11.4-16.0) gm/dL Hct (34.0-46.0) % RDW (11.5-15.5) % APTT 35.0 H (22.0-30.0) sec BUN (7-17) mg/dL Creatinine (0.52-1.04) mg/dL Glucose (74-99) mg/dL POC Glucose (mg/dL) (75-99) mg/dL Hemoglobin A1c 9.8 H (4.2-6.1) % Total Creatine Kinase (30-135) U/L Troponin I 0.037 H* (0.000-0.034) ng/mL TSH (0.465-4.680) mIU/L 06/22/17 06/22/17 06/22/17 Range/Units 01:34 05:06 05:09 RBC (3.80-5.40) m/uL Hgb (11.4-16.0) gm/dL Hct (34.0-46.0) % RDW (11.5-15.5) % APTT 40.2 H (22.0-30.0) sec BUN (7-17) mg/dL Creatinine (0.52-1.04) mg/dL Glucose (74-99) mg/dL POC Glucose (mg/dL) 177 H (75-99) mg/dL Hemoglobin A1c (4.2-6.1) % Total Creatine Kinase 29 L (30-135) U/L Troponin I 0.046 H* (0.000-0.034) ng/mL TSH (0.465-4.680) mIU/L 06/22/17 06/22/17 06/22/17 Range/Units 05:09 05:09 12:11 RBC 3.15 L (3.80-5.40) m/uL Hgb 8.7 L D (11.4-16.0) gm/dL Hct 27.1 L (34.0-46.0) % RDW 15.6 H (11.5-15.5) % APTT 48.3 H (22.0-30.0) sec BUN 23 H (7-17) mg/dL Creatinine 1.20 H (0.52-1.04) mg/dL Glucose 166 H (74-99) mg/dL POC Glucose (mg/dL) (75-99) mg/dL Hemoglobin A1c (4.2-6.1) % Total Creatine Kinase (30-135) U/L Troponin I (0.000-0.034) ng/mL TSH 7.800 H (0.465-4.680) mIU/L 06/22/17 06/22/17 06/22/17 Range/Units 12:33 16:40 20:48 RBC (3.80-5.40) m/uL Hgb (11.4-16.0) gm/dL Hct (34.0-46.0) % RDW (11.5-15.5) % APTT (22.0-30.0) sec BUN (7-17) mg/dL Creatinine (0.52-1.04) mg/dL Glucose (74-99) mg/dL POC Glucose (mg/dL) 241 H 167 H 185 H (75-99) mg/dL Hemoglobin A1c (4.2-6.1) % Total Creatine Kinase (30-135) U/L Troponin I (0.000-0.034) ng/mL TSH (0.465-4.680) mIU/L Assessment and Plan Plan: #1 shortness of breath secondary to acute CHF exacerbation. EF ejection fraction unknown #2 atrial flutter #3 history of coronary artery disease and bypass graft. AICD placement as well #4 history of aortic valve replacement #4 hypokalemia #5 hypertension #6 diabetes type 2 [id number]-myxgdcrff #7 hypothyroidism #8 obstructive sleep apnea on CPAP at home #9 acute on chronic kidney disease stage III . creatinine 1.2 #10 obesity with BMI 34.3 #11 history of gout stable #12 hypothyroidism. Started on levothyroxine 75 g daily. Plan: Patient will be continued on IV Lasix 20 mg twice a day. Continue with heparin drip for atrial flutter. Continue with Coreg. Patient is ALLERGIC to aspirin. Continue with telemetry monitoring and serial EKGs and troponins. Cardiology is following. VQ scan showed low probability for PE. Continue to follow closely and further recommendations based on the clinical course. Cardiology has been consulted. Prognosis is guarded with multiple medical problems and comorbid conditions. Time with Patient: Greater than 30
[2017-06-22] MEDS: MELATONIN 3 MG TABLET PO SCH (22:26)
[2017-06-22] MEDS: LIDOCAINE 5% PATCH TOPICAL SCH (22:26)
[2017-06-23] MEDS: ACETAMINOPHEN TAB 325 MG TAB PO PRN ×4 (00:48→23:37)
[2017-06-23] MEDS: HEPARIN SODIUM,PORCINE/D5W PMX 25,000 UNIT in DEXTROSE/WATER 1 500ML.BAG IV SCH ×2 (04:24→22:12)
[2017-06-23 05:45] LABS: Glucose,Whole Blood 104 mg/dL (75-99)
[2017-06-23] MEDS: INSULIN LISPRO (humaLOG) 300 UNIT/3 ML VIAL SQ SCH ×4 (06:25→21:14)
[2017-06-23 06:33] LABS: Anisocytosis Slight; Basophils % (A) 1 %; CH 27.4; CHCM 32.1; Eosinophils # (A) 0.5 k/uL (0-0.7); Eosinophils % (A) 6 %; HCT 26.9 % (34.0-46.0); HGB 8.4 gm/dL (11.4-16.0); Hypochromasia Moderate; Luc # (Auto) 0.14; Luc % (Auto) 2; Lymphocytes # (A) 1.7 k/uL (1.0-4.8); Lymphocytes % (A) 23 %; MCH 26.8 pg (25.0-35.0); MCHC 31.4 g/dL (31.0-37.0); MCV 85.3 fL (80.0-100.0); Mean Platelet Volume 10.8; Monocytes # (A) 0.6 k/uL (0-1.0); Monocytes % (A) 7 %; Neutrophils # (A) 4.6 k/uL (1.3-7.7); Neutrophils % (A) 61 %; Poikilocytosis Moderate; RBC 3.15 m/uL (3.80-5.40); RDW 16.7 % (11.5-15.5); WBC 7.5 k/uL (3.8-10.6); WBC (Perox) 7.94
[2017-06-23] MEDS: CARVEDILOL 3.125 MG TAB PO SCH ×2 (06:45→17:24)
[2017-06-23] MEDS: LEVOTHYROXINE 75 MCG TAB PO SCH (06:45)
[2017-06-23] MEDS: glipiZIDE 10 MG TAB PO SCH ×2 (06:45→17:24)
[2017-06-23] MEDS: VIT A,C & E-LUTEIN-MINERALS 1 EACH TAB PO SCH ×2 (06:46→17:24)
[2017-06-23 07:35] LABS: Potassium 3.7 mmol/L (3.5-5.1)
[2017-06-23] MEDS: ALLOPURINOL 100 MG TAB PO SCH ×2 (07:50→21:14)
[2017-06-23] MEDS: FUROSEMIDE 10 MG/ML 2 ML VIAL IV SCH (07:51)
[2017-06-23] MEDS: POTASSIUM CHLORIDE ER 20 MEQ TAB.ER PO SCH (07:51)
[2017-06-23] MEDS: LIDOCAINE 5% PATCH TOPICAL SCH (07:51)
[2017-06-23] MEDS: LINAGLIPTIN 5 MG TABLET PO SCH (07:51)
[2017-06-23 11:41] LABS: Glucose,Whole Blood 229 mg/dL (75-99)
--- NOTE | 2017-06-23 11:51 | P.PN ---
Subjective Principal diagnosis: Shortness of breath This is a pleasant 86-year-old female who follows regularly in the office with Dr. Daigle. She has history of hyperlipidemia, hypertension, diabetes, family history of premature coronary artery disease, CABG in 2010, chronic persistent atrial fibrillation, history of aortic valve replacement with tissue valve, COPD, moderate mitral regurgitation, history of prior GI bleeding, history of pacemaker implantation, history of Morgan[place] filter placement, hypothyroidism, sleep apnea. She presented to the hospital with symptoms of progressive dyspnea. Patient had been taking her medications on a regular basis but states that she has not been compliant with her diet and did have a recent upper respiratory infection. BNP level on admission 2270. TSH level 7.8, troponins 0.034, 0.037, 0.046. D-dimer came back to be elevated, VQ scan low probability for PE. Patient is currently on IV heparin, not on oral anticoagulation at home. According to [facility] recommendations, anticoagulation therapy is indicated. It appears that this is been discontinued in the past secondary to bleeding and also secondary to the fact the patient refused to take anticoagulation according to the office notes. We will rediscuss this with the patient again at this time, she does have again a low hemoglobin this morning. She is currently on IV Lasix. Documented weight appears to be up from yesterday. Hemoglobin on admission 10.2, 8.4 this morning. BUN 24, creatinine 1.3. Objective - Vital Signs Vital signs: Vital Signs Temp 97.4 F L 06/23/17 08:20 Pulse 69 06/23/17 08:20 Resp 18 06/23/17 08:20 BP 102/54 06/23/17 08:20 Pulse Ox 96 06/23/17 08:20 Intake & Output 06/22/17 06/23/17 06/23/17 18:59 06:59 18:59 Intake Total 180.433 500 236 Output Total 160 Balance 180.433 340 236 Weight 93.8 kg 94.8 kg Intake: IV 60 0.9 ns 60 Intake, IV Titration 120.433 500 Amount Heparin Sodium,Porcine/ 120.433 500 D5w Pmx 25,000 unit In Dextrose/Water 1 500ml. bag @ 11 UNITS/KG/HR 19. 95 mls/hr IV .Q24H [facility] Rx #:[id number] Oral 236 Output: Urine 160 Other: Voiding Method Bedside Commode Bedside Commode Bedside Commode # Voids 1 2 # Bowel Movements 0 - Exam PHYSICAL EXAMINATION: HEENT: Head is atraumatic, normocephalic. Pupils equal, round. Neck is supple. There is no elevated jugular venous pressure. HEART EXAMINATION: Heart S1 and S2 irregularly irregular a systolic ejection murmur is heard. CHEST EXAMINATION: Lungs are clear with mild diminished air entry to the bases ABDOMEN: Soft, nontender. Bowel sounds are heard. No organomegaly noted. EXTREMITIES: 1+ peripheral pulses with evidence of peripheral edema and no calf tenderness noted. NEUROLOGIC patient is awake, alert and oriented -3. . - Labs CBC & Chem 7: 06/23/17 06:02 06/23/17 06:02 Labs: Abnormal Lab Results - Last 24 Hours (Table) 06/21/17 06/22/17 06/22/17 Range/Units 13:55 12:11 12:33 RBC (3.80-5.40) m/uL Hgb (11.4-16.0) gm/dL Hct (34.0-46.0) % RDW (11.5-15.5) % APTT 48.3 H (22.0-30.0) sec BUN (7-17) mg/dL Creatinine (0.52-1.04) mg/dL POC Glucose (mg/dL) 241 H (75-99) mg/dL Hemoglobin A1c 9.8 H (4.2-6.1) % 06/22/17 06/22/17 06/23/17 Range/Units 16:40 20:48 05:41 RBC (3.80-5.40) m/uL Hgb (11.4-16.0) gm/dL Hct (34.0-46.0) % RDW (11.5-15.5) % APTT (22.0-30.0) sec BUN (7-17) mg/dL Creatinine (0.52-1.04) mg/dL POC Glucose (mg/dL) 167 H 185 H 104 H (75-99) mg/dL Hemoglobin A1c (4.2-6.1) % 06/23/17 06/23/17 06/23/17 Range/Units 06:02 06:02 06:02 RBC 3.15 L (3.80-5.40) m/uL Hgb 8.4 L (11.4-16.0) gm/dL Hct 26.9 L (34.0-46.0) % RDW 16.7 H (11.5-15.5) % APTT 59.0 H (22.0-30.0) sec BUN 24 H (7-17) mg/dL Creatinine 1.38 H (0.52-1.04) mg/dL POC Glucose (mg/dL) (75-99) mg/dL Hemoglobin A1c (4.2-6.1) % Assessment and Plan (1) Diastolic CHF, acute on chronic Status: Acute (2) Chronic a-fib Status: Acute (3) Hx of CABG Status: Acute (4) S/P AVR Status: Acute (5) Diabetes Status: Acute (6) Elevated troponin Status: Acute (7) HTN (hypertension) Status: Acute (8) Hx of CABG Status: Acute (9) Hyperlipemia Status: Acute (10) History of GI bleed Status: Acute (11) Anemia Status: Acute Plan: From cardiology standpoint, we'll continue the patient on her current dose of IV Lasix for 24 hours. Check lytes BUN and creatinine in the morning. We will also monitor her hemoglobin closely, and revisit the discussion regarding anticoagulation. DNP note has been reviewed, I agree with a documented findings and plan of care. Patient was seen and examined.
--- NOTE | 2017-06-23 14:44 | US ---
EXAMINATION TYPE: US carotid duplex BILAT DATE OF EXAM: 06/23/2017 COMPARISON: NONE CLINICAL HISTORY: dizziness. Dizziness, technically difficult study due to patient's heavy breathing EXAM MEASUREMENTS: RIGHT: Peak Systolic Velocity (PSV) cm/sec ----- Right CCA: 71.2 ----- Right ICA: 101.1 ----- Right ECA: 181.3 ICA/CCA ratio: 1.4 RIGHT: End Diastole cm/sec ----- Right CCA: 7.7 ----- Right ICA: 24.4 ----- Right ECA: 6.3 LEFT: Peak Systolic Velocity (PSV) cm/sec ----- Left CCA: 54.6 ----- Left ICA: 149.8 ----- Left ECA: 135.7 ICA/CCA ratio: 2.7 LEFT: End Diastole cm/sec ----- Left CCA: 8.4 ----- Left ICA: 41.7 ----- Left ECA: 0.0 VERTEBRALS (direction of flow): Right Vertebral: Antegrade Left Vertebral: Antegrade Rhythm: Arrhythmia IMPRESSION: Bilateral intimal thickening, plaque bilateral bulb, elevated velocities: right mid ECA, left mid ICA, left distal ICA and left mid ECA, left ICA/CCA ratio of 2.7 for 50-69% stenosis. Criteria for Assigning % of Stenosis / Diameter reduction (Estimation based on the indirect measurements of the internal carotid artery velocities (ICA PSV). 1. Normal (no stenosis)=ICA PSV < 125 cm/s: ratio < 2.0: ICA EDV<40 cm/s. 2. Less than 50% stenosis=ICA PSV < 125 cm/s: ratio < 2.0: ICA EDV<40 cm/s. 3. 50 to 69% stenosis=ICA PSV of 125 to 230 cm/s: ration 2.0 ? 4.0: ICA EDV 40-100 cm/s. 4. Greater than 70% stenosis to near occlusion= ICA PSV > 230 cm/s: ratio > 4.0: ICA EDV > 100 cm/s. 5. Near occlusion= ICA PSV velocities may be low or undetectable: variable ratio and ICA EDV. 6. Total occlusion=unable to detect flow.
--- NOTE | 2017-06-23 14:51 | CT ---
EXAMINATION TYPE: CT cervical spine wo con DATE OF EXAM: 06/23/2017 COMPARISON: NONE HISTORY: Neck pain and dizziness. CT DLP: 513.00 mGycm Automated exposure control for dose reduction was used. TECHNIQUE: CT scan of the cervical spine is obtained without contrast, axial images are obtained, sa gittal and coronal reformatted images are also reviewed. FINDINGS: No acute fractures are evident. Facet degenerative changes are present. Endplate spurring i s present C6-C7. There is loss of disc height C6-7 and C5-6 C4-5. A minimal grade 1 spondylolisthesis of C4 anteriorly on C5 is present. Uncovertebral joint hypertrophy and facet hypertrophy at C4-5 is contributing to bilateral foraminal narrowing. Facet hypertrophy and uncovertebral joint hypertrophy is contributing to C5-6 foraminal na rrowing bilaterally. There is a right paracentral endplate spurring at C6-7 superior endplate with mo derate anterior thecal sac compression. IMPRESSION: 1. No acute osseous abnormality. 2. Degenerative disc changes. 3. Facet changes and some uncovertebral joint hypertrophy contributing to foraminal narrowing
[2017-06-23 16:43] LABS: Glucose,Whole Blood 268 mg/dL (75-99)
[2017-06-23] MEDS: INSULIN DETEMIR 100 UNIT/ML 10 ML VIAL SQ SCH (17:24)
[2017-06-23] MEDS: ALBUTEROL NEBULIZED 2.5 MG/3 ML INHALATION PRN (20:44)
[2017-06-23 21:10] LABS: Glucose,Whole Blood 245 mg/dL (75-99)
[2017-06-23] MEDS: LATANOPROST 0.005% OPHTH DROPS 2.5 ML BTL RIGHT EYE SCH (21:15)
[2017-06-23] MEDS: MELATONIN 3 MG TABLET PO SCH (21:18)
--- NOTE | 2017-06-23 21:37 | P.PN ---
Subjective Principal diagnosis: Acute CHF exacerbation. Patient is a 86-year-old female with a known history of coronary artery disease status post bypass graft in 2010 and ACD placement, hypertension, diabetes type 2 [id number] and multiple other medical problems came to the hospital with complaints of worsening Short of breath since yesterday. Apparently patient has been having short of breath and dizziness for the past few months. Denied any fever or chills. Denied any chest pain. No nausea or vomiting abdominal pain. She says that she typically does not wear oxygen however has required it today. She states it is worse with exertion and better with rest. Does not seem to be related to position. She has no associated chest pain however does complain of some lightheadedness at times. She does admit to some lower extremity swelling however mild. She states that she has not had a CHF exacerbation in 2 years. 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 She denies any recent travel or surgeries. No history of PE or DVT. No other complaints. BNP 2270, troponin 0.037. Hemoglobin 10.2 potassium 3.4 EKG showed atrial flutter Chest x-ray showed no acute process VQ scan showed low powered for PE 06/22/2017 Patient says that her breathing is better today. Continued on IV diuresis with 20 mg of Lasix twice daily. 2-D echo report is pending. Patient was found to have elevated TSH level and was started on thyroid supplements Patient denied any chest pain or short of breath worsening. No nausea vomiting or abdominal pain. No acute otherwise overnight issues. 06/23/2017 Patient says that she has been having dizziness whenever she gets up and go to the bathroom and also complaints of neck pain. Dizziness has been going on for a while as per the patient. Patient says that she's been feeling grinding sensation in the lower neck. Orthostatic vitals as ordered. We'll order carotid duplex and CT cervical spine without contrast. We will also consult neurology for further evaluation of dizziness. No compressive chest pain. No other acute overnight issues. Objective - Vital Signs Vital signs: Vital Signs Temp 97.4 F L 06/23/17 08:20 Pulse 69 06/23/17 08:20 Resp 18 06/23/17 08:20 BP 102/54 06/23/17 08:20 Pulse Ox 96 06/23/17 08:20 Intake & Output 06/22/17 06/23/17 06/23/17 18:59 06:59 18:59 Intake Total 180.433 500 236 Output Total 160 Balance 180.433 340 236 Weight 93.8 kg 94.8 kg Intake: IV 60 0.9 ns 60 Intake, IV Titration 120.433 500 Amount Heparin Sodium,Porcine/ 120.433 500 D5w Pmx 25,000 unit In Dextrose/Water 1 500ml. bag @ 11 UNITS/KG/HR 19. 95 mls/hr IV .Q24H [facility] Rx #:[id number] Oral 236 Output: Urine 160 Other: Voiding Method Bedside Commode Bedside Commode Bedside Commode # Voids 1 2 # Bowel Movements 0 - Exam PHYSICAL EXAMINATION: Patient is lying in the bed comfortably, no acute distress, awake alert and oriented.. HEENT: Normocephalic. Neck is supple. Cervical muscle tenderness in the back. Pupils reactive. Nostrils clear. Oral cavity is moist. Ears reveal no drainage. Neck reveals no JVD, carotid bruits, or thyromegaly. CHEST EXAMINATION: Trachea is central. Symmetrical expansion. Lung nicolas clear to auscultation and percussion. CARDIAC: Normal S1, S2 with no gallops. No murmurs ABDOMEN: Soft. Bowel sounds normal. No organomegaly. No abdominal bruits. Extremities 1+ edema. No clubbing or cyanosis Neurologically awake, alert, oriented x3 with well-coordinated movements. Skin: no rash or skin lesions Musculoskeletal: no joint swelling or deformity. - Labs CBC & Chem 7: 06/23/17 06:02 06/23/17 06:02 Labs: Abnormal Lab Results - Last 24 Hours (Table) 06/21/17 06/22/17 06/22/17 Range/Units 13:55 12:11 12:33 RBC (3.80-5.40) m/uL Hgb (11.4-16.0) gm/dL Hct (34.0-46.0) % RDW (11.5-15.5) % APTT 48.3 H (22.0-30.0) sec BUN (7-17) mg/dL Creatinine (0.52-1.04) mg/dL POC Glucose (mg/dL) 241 H (75-99) mg/dL Hemoglobin A1c 9.8 H (4.2-6.1) % 06/22/17 06/22/17 06/23/17 Range/Units 16:40 20:48 05:41 RBC (3.80-5.40) m/uL Hgb (11.4-16.0) gm/dL Hct (34.0-46.0) % RDW (11.5-15.5) % APTT (22.0-30.0) sec BUN (7-17) mg/dL Creatinine (0.52-1.04) mg/dL POC Glucose (mg/dL) 167 H 185 H 104 H (75-99) mg/dL Hemoglobin A1c (4.2-6.1) % 06/23/17 06/23/17 06/23/17 Range/Units 06:02 06:02 06:02 RBC 3.15 L (3.80-5.40) m/uL Hgb 8.4 L (11.4-16.0) gm/dL Hct 26.9 L (34.0-46.0) % RDW 16.7 H (11.5-15.5) % APTT 59.0 H (22.0-30.0) sec BUN 24 H (7-17) mg/dL Creatinine 1.38 H (0.52-1.04) mg/dL POC Glucose (mg/dL) (75-99) mg/dL Hemoglobin A1c (4.2-6.1) % 06/23/17 Range/Units 11:39 RBC (3.80-5.40) m/uL Hgb (11.4-16.0) gm/dL Hct (34.0-46.0) % RDW (11.5-15.5) % APTT (22.0-30.0) sec BUN (7-17) mg/dL Creatinine (0.52-1.04) mg/dL POC Glucose (mg/dL) 229 H (75-99) mg/dL Hemoglobin A1c (4.2-6.1) % Assessment and Plan Plan: #1 shortness of breath secondary to acute CHF exacerbation. EF ejection fraction unknown. 2-D echo report pending. #2 dizziness. Possible orthostatic hypotension. Exact details unknown. Neurology was consulted #2 chronic atrial fibrillation. Not on anticoagulation at home. Patient refused to take anti-correlation previously. #3 history of coronary artery disease and bypass graft. AICD placement as well #4 history of aortic valve replacement #4 hypokalemia #5 hypertension #6 diabetes type 2 [id number] #7 hypothyroidism #8 obstructive sleep apnea on CPAP at home #9 acute on chronic kidney disease stage III . creatinine 1.2 #10 obesity with BMI 34.3 #11 history of gout stable #12 hypothyroidism. Started on levothyroxine 75 g daily. Plan: Patient will be continued on IV Lasix 20 mg twice a day for 1 more day. Creatinine increased to 1.38 today. Continue with heparin drip for atrial flutter. Continue with Coreg. Patient is ALLERGIC to aspirin. Continue with telemetry monitoring and serial EKGs and troponins. Cardiology is following. VQ scan showed low probability for PE. Continue to follow closely and further recommendations based on the clinical course. Will consult neurology for further evaluation of dizziness. Prognosis is guarded with multiple medical problems and comorbid conditions. Time with Patient: Greater than 30
[2017-06-24] MEDS: ALBUTEROL NEBULIZED 2.5 MG/3 ML INHALATION PRN ×3 (04:53→21:02)
[2017-06-24 06:23] LABS: Basophils # (A) 0.1 k/uL (0-0.2); Basophils % (A) 1 %; CH 26.3; CHCM 30.7; Eosinophils # (A) 0.5 k/uL (0-0.7); Eosinophils % (A) 6 %; HDW 4.08; HGB 8.4 gm/dL (11.4-16.0); Hypochromasia Marked; Luc # (Auto) 0.24; Luc % (Auto) 3; Lymphocytes # (A) 1.9 k/uL (1.0-4.8); Lymphocytes % (A) 23 %; MCH 26.9 pg (25.0-35.0); MCHC 31.3 g/dL (31.0-37.0); Mean Platelet Volume 9.8; Monocytes # (A) 0.6 k/uL (0-1.0); Monocytes % (A) 7 %; Neutrophils % (A) 61 %; Poikilocytosis Moderate; RBC 3.14 m/uL (3.80-5.40); RDW 15.6 % (11.5-15.5); WBC 8.3 k/uL (3.8-10.6); WBC (Perox) 8.98
[2017-06-24] MEDS: INSULIN LISPRO (humaLOG) 300 UNIT/3 ML VIAL SQ SCH ×4 (06:25→21:56)
[2017-06-24] MEDS: LEVOTHYROXINE 75 MCG TAB PO SCH (06:26)
[2017-06-24] MEDS: VIT A,C & E-LUTEIN-MINERALS 1 EACH TAB PO SCH ×2 (06:26→16:22)
[2017-06-24] MEDS: glipiZIDE 10 MG TAB PO SCH ×2 (06:26→16:22)
[2017-06-24] MEDS: CARVEDILOL 3.125 MG TAB PO SCH ×2 (06:26→16:22)
[2017-06-24 06:53] LABS: Glucose,Whole Blood 105 mg/dL (75-99)
[2017-06-24 07:26] LABS: Calcium 9.1 mg/dL (8.4-10.2); Potassium 3.8 mmol/L (3.5-5.1)
[2017-06-24] MEDS: ALLOPURINOL 100 MG TAB PO SCH ×2 (08:53→20:34)
[2017-06-24] MEDS: LINAGLIPTIN 5 MG TABLET PO SCH (08:53)
[2017-06-24] MEDS: ACETAMINOPHEN TAB 325 MG TAB PO PRN ×2 (08:53→14:56)
[2017-06-24] MEDS ORDERED: FUROSEMIDE 10 MG/ML 2 ML VIAL IV SCH (09:00)
[2017-06-24 09:41] VITALS: BMI 36.0
--- NOTE | 2017-06-24 10:24 | P.CNNES ---
History of Present Illness Consult date: 06/23/17 Reason for Consult: Patient being evaluated for symptoms of dizziness. History of Present Illness: This patient is a 86-year-old right-handed white female who was admitted to Hospital on 06/21/2017 for symptoms of shortness of breath and possible exacerbation of acute congestive heart failure. She also has a history of chronic atrial fibrillation but is not on any anticoagulation. Apparently the patient has refused to take anticoagulation previously. Patient does have a long-standing history of multiple complex medical issues including placement of a AICD pacemaker and defibrillator in 2010. The patient was complaining of symptoms of dizziness which she describes as a sense of imbalance every time she stands up. Apparently the dizziness is brought on by severe occipital headache pain. The patient states the pain usually precedes her symptoms of feeling dizzy. This was most noticed by her when she would stand from a sitting position. Since admission to the hospital the symptoms also occur now when she is laying in bed. The patient states that she does experience pain mostly in the suboccipital area of the head and neck region. She also has some neck discomfort. Due to the pain in the neck she was sent for a computed tomography scan of the cervical spine on 06/23/2017 which revealed no acute osseous abnormality. Degenerative disc changes were noted. The patient states that she has been having recurrent head and neck pain for the past several months. The pain can be quite severe. On examination today she is noted to have bilateral suboccipital pain on palpation which she rates as 7/10 in intensity. The patient did not have a computed tomography scan of the brain on admission. We will obtain a routine CT of the brain as she is unable to go for MRI due to her pacemaker and defibrillator. The patient states that she does have a history of needing and sewing and does have chronic arthritic pain in the neck. We did review the results of the computed tomography scan of the cervical spine today with the patient. As noted she does have evidence of probable bilateral occipital neuritis. She states that the onset of her occipital pain brings on her sense of dizziness. She is also being closely monitored for orthostatic hypotension. She does follow with Dr. Rsoita Bucio from cardiology who is also monitoring for orthostasis. Due to the symptoms of dizziness neurology is now been consulted for further evaluation and recommendations. Review of Systems All systems: negative Constitutional: Denies chills, Denies fever Eyes: denies blurred vision, denies pain Ears, nose, mouth and throat: Denies headache, Denies sore throat Cardiovascular: Denies chest pain, Denies shortness of breath Respiratory: Denies cough Gastrointestinal: Denies abdominal pain, Denies diarrhea, Denies nausea, Denies vomiting Genitourinary: Denies dysuria, Denies hematuria Musculoskeletal: Denies myalgias Integumentary: Denies pruritus, Denies rash Neurological: Reports confusion, Reports headaches, Reports paresthesias, Reports tingling, Reports vertigo, Denies numbness, Denies weakness Psychiatric: Denies anxiety, Denies depression Past Medical History Past Medical History: Coronary Artery Disease (CAD), Cancer, Heart Failure, Diabetes Mellitus, GI Bleed, Hypertension, Osteoarthritis (OA), Pulmonary Embolus (PE), Sleep Apnea/CPAP/BIPAP, Thyroid Disorder Additional Past Medical History / Comment(s): gout, chronic pain in back hip and leg, diverticulitis, LT EYE BLIND,GLAUCOMA, MAC DEGEBERATION, MURMUR, DIVERTICULAR DX.OVARIAN CYSTS,ANEMIA,SKIN CA,ANEMIA, TRACHEBRONCHITIS WITH REACTIVE BRONCHOSPSM.used to use cpap machine but stopped 1 year ago d/t mask not fitting well. History of Any Multi-Drug Resistant Organisms: None Reported Past Surgical History: Appendectomy, Bowel Resection, Breast Surgery, Cholecystectomy, Coronary Bypass/CABG, Hysterectomy, Orthopedic Surgery, Pacemaker, Tonsillectomy Additional Past Surgical History / Comment(s): pacemaker, AORTIC VALVE REPLACEMENT(TISSUE), CYST REMOVED FROM HAND/HEAD,BOWEL RESECTION D/T DIVERTICULITIS.[place] FILTER Past Anesthesia/Blood Transfusion Reactions: No Reported Reaction Type of Cardiac Device: Permanent Pacemaker Device Placement Date:: 2010 Smoking Status: Former smoker - Past Family History Father Family Medical History: Cancer Additional Family Medical History / Comment(s): ALCOHOLIC-- 1969 Mother Family Medical History: Cancer, Coronary Artery Disease (CAD), Dementia, Diabetes Mellitus Additional Family Medical History / Comment(s): 1984 Medications and Allergies Home Medications Medication Instructions Recorded Confirmed Type Bimatoprost [Lumigan .01% Ophth 1 drop RIGHT EYE HS 03/25/14 06/21/17 History Soln] Carvedilol [Coreg] 3.125 mg PO BID 03/25/14 06/21/17 History Furosemide [Lasix] 80 mg PO BID 03/25/14 06/21/17 History glipiZIDE [Glucotrol] 10 mg PO AC-BID 03/25/14 06/21/17 History sitaGLIPtin [Januvia] 100 mg PO DAILY 03/25/14 06/21/17 History Allopurinol [Allopurinol] 200 mg PO BID 03/07/15 06/21/17 History Vit C/E/Zn/Coppr/Lutein/Zeaxan 2 tab PO BID 03/07/15 06/21/17 History [Preservision Areds 2 Softgel] Insulin Detemir [Levemir] 100 unit SQ AC-SUPPER 06/21/17 06/21/17 History Allergies Allergy/AdvReac Type Severity Reaction Status Date / Time aspirin Allergy Unknown Verified 06/21/17 14:22 bee pollen [Bee Pollen] Allergy Anaphylaxis Verified 06/21/17 14:22 celecoxib [From Celebrex] Allergy Unknown Verified 06/21/17 14:22 URIC ACIDS AdvReac GOUT Uncoded 06/21/17 13:23 Physical Examination - Vital Signs Vital Signs: Vital Signs Temp Pulse Pulse Resp BP BP BP 06/23/17 20:45 68 06/23/17 19:59 96.8 F L 64 20 136/62 06/23/17 16:46 97.8 F 72 16 118/57 06/23/17 12:16 97.7 F 76 18 128/60 06/23/17 08:20 97.4 F L 69 16 102/54 06/23/17 04:00 98.1 F 66 18 119/53 06/23/17 00:00 97.8 F 66 18 124/61 Pulse Ox 06/23/17 20:45 06/23/17 19:59 93 L 06/23/17 16:46 98 06/23/17 12:16 95 06/23/17 08:20 96 06/23/17 04:00 98 06/23/17 00:00 95 Intake and Output 06/23/17 06/23/17 06/23/17 06:59 14:59 22:59 Intake Total 500 416 118 Output Total 800 500 Balance 500 -384 -382 Intake: Intake, IV Titration 500 Amount Heparin Sodium,Porcine/ 500 D5w Pmx 25,000 unit In Dextrose/Water 1 500ml. bag @ 11 UNITS/KG/HR 19. 95 mls/hr IV .Q24H [facility] Rx #:[id number] Oral 416 118 Output: Urine 800 500 Other: Voiding Method Bedside Commode Bedside Commode Bedside Commode # Voids 2 2 Weight 94.8 kg - Constitutional General appearance: average body habitus, cooperative - EENT EENT: PERRL, mucous membranes moist - Respiratory Respiratory: lungs clear, normal breath sounds - Cardiovascular Cardiovascular: regular rate, normal S1, normal S2 Extremities: no peripheral edema bilaterally - Gastrointestinal Gastrointestinal: normoactive bowel sounds - Integumentary Integumentary: normal - Neurologic Cranial nerve examination: PERRL, EOMI, VFF, V1/V2/V3 grossly intact, face symmetric, intact shoulder shrug, intact gag reflex, intact corneal reflex, normal palatal elevation Speech examination: intact Sensorimotor examination: intact Detailed motor examination: grossly full strength in all extremities Motor examination - right side: 4/5: biceps, triceps, wrist flexion, wrist extension, disease and insect control boss, hip flexors, knee extensors, dorsiflexion, toe extension (EHL) , plantarflexion Motor examination - left side: 4/5: biceps, triceps, wrist flexion, wrist extension, disease and insect control boss, hip flexors, knee extensors, dorsiflexion, toe extension (EHL) , plantarflexion Detailed sensory examination: intact Reflex and gait examination: intact Reflexes: 1+: ankle, bicep, knee, tricep - Musculoskeletal Musculoskeletal: no pain - Psychiatric Psychiatric: mood/affect appropriate, cooperative Results - Laboratory Findings CBC and BMP: 06/24/17 05:54 06/24/17 05:54 Abnormal Lab Findings: Abnormal Labs 06/21/17 06/21/17 06/21/17 13:55 13:55 13:55 RBC 3.69 L Hgb 10.2 L Hct 31.7 L RDW 15.8 H APTT D-Dimer 0.92 H Potassium 3.4 L Carbon Dioxide 20 L BUN 24 H Creatinine 1.20 H Glucose 324 H POC Glucose (mg/dL) Hemoglobin A1c AST 38 H Alkaline Phosphatase 179 H Total Creatine Kinase Troponin I Total Protein 6.1 L TSH 06/21/17 06/21/17 06/21/17 13:55 17:16 20:28 RBC Hgb Hct RDW APTT D-Dimer Potassium Carbon Dioxide BUN Creatinine Glucose POC Glucose (mg/dL) 241 H 297 H Hemoglobin A1c 9.8 H AST Alkaline Phosphatase Total Creatine Kinase Troponin I Total Protein TSH 06/21/17 06/21/17 06/22/17 22:05 22:05 01:34 RBC Hgb Hct RDW APTT 35.0 H D-Dimer Potassium Carbon Dioxide BUN Creatinine Glucose POC Glucose (mg/dL) Hemoglobin A1c AST Alkaline Phosphatase Total Creatine Kinase 29 L Troponin I 0.037 H* 0.046 H* Total Protein TSH 06/22/17 06/22/17 06/22/17 05:06 05:09 05:09 RBC 3.15 L Hgb 8.7 L D Hct 27.1 L RDW 15.6 H APTT 40.2 H D-Dimer Potassium Carbon Dioxide BUN Creatinine Glucose POC Glucose (mg/dL) 177 H Hemoglobin A1c AST Alkaline Phosphatase Total Creatine Kinase Troponin I Total Protein TSH 06/22/17 06/22/17 06/22/17 05:09 12:11 12:33 RBC Hgb Hct RDW APTT 48.3 H D-Dimer Potassium Carbon Dioxide BUN 23 H Creatinine 1.20 H Glucose 166 H POC Glucose (mg/dL) 241 H Hemoglobin A1c AST Alkaline Phosphatase Total Creatine Kinase Troponin I Total Protein TSH 7.800 H 06/22/17 06/22/17 06/23/17 16:40 20:48 05:41 RBC Hgb Hct RDW APTT D-Dimer Potassium Carbon Dioxide BUN Creatinine Glucose POC Glucose (mg/dL) 167 H 185 H 104 H Hemoglobin A1c AST Alkaline Phosphatase Total Creatine Kinase Troponin I Total Protein TSH 06/23/17 06/23/17 06/23/17 06:02 06:02 06:02 RBC 3.15 L Hgb 8.4 L Hct 26.9 L RDW 16.7 H APTT 59.0 H D-Dimer Potassium Carbon Dioxide BUN 24 H Creatinine 1.38 H Glucose POC Glucose (mg/dL) Hemoglobin A1c AST Alkaline Phosphatase Total Creatine Kinase Troponin I Total Protein TSH 06/23/17 06/23/17 06/23/17 11:39 16:39 21:08 RBC Hgb Hct RDW APTT D-Dimer Potassium Carbon Dioxide BUN Creatinine Glucose POC Glucose (mg/dL) 229 H 268 H 245 H Hemoglobin A1c AST Alkaline Phosphatase Total Creatine Kinase Troponin I Total Protein TSH Assessment and Plan (1) Occipital neuritis Status: Acute Code(s): M54.81 - OCCIPITAL NEURALGIA (2) Benign positional vertigo Status: Acute Code(s): H81.10 - BENIGN PAROXYSMAL VERTIGO, UNSPECIFIED EAR (3) Chronic a-fib Status: Acute Code(s): I48.2 - CHRONIC ATRIAL FIBRILLATION (4) S/P AVR Status: Acute Code(s): Z95.2 - PRESENCE OF PROSTHETIC HEART VALVE (5) Acute congestive heart failure Status: Acute Code(s): I50.9 - HEART FAILURE, UNSPECIFIED Plan: This patient is a 86-year-old female with multiple complex medical issues. Neurology was consulted due to evaluation of dizziness. Patient has been having symptoms of disequilibrium and balance issues when standing. More recently she is also been experiencing the same symptoms when laying in bed. She states the symptoms are always preceded by severe bilateral suboccipital headache pain. Her neurological examination today reveals evidence of bilateral occipital neuritis. We have recommended she undergo a bilateral occipital nerve block procedure for further treatment. We will also obtain a routine computed tomography scan of the brain. Patient's neurological examination otherwise is nonfocal. She does have a history of chronic atrial fibrillation but has declined any use of anticoagulant medications for treatment. We will await further recommendations from cardiology. Patient should be closely monitored for orthostatic hypotension as well. We will continue close neurological follow-up for this patient during this admission. Her overall prognosis at this time remains guarded. Time with Patient: Greater than 30
[2017-06-24 11:37] LABS: Glucose,Whole Blood 241 mg/dL (75-99)
--- NOTE | 2017-06-24 12:04 | P.PN ---
Subjective Principal diagnosis: Shortness of breath This is a pleasant 86-year-old female who follows regularly in the office with Dr. Daigle. She has history of hyperlipidemia, hypertension, diabetes, family history of premature coronary artery disease, CABG in 2010, chronic persistent atrial fibrillation, history of aortic valve replacement with tissue valve, COPD, moderate mitral regurgitation, history of prior GI bleeding, history of pacemaker implantation, history of [place] filter placement, hypothyroidism, sleep apnea. She presented to the hospital with symptoms of progressive dyspnea. Patient had been taking her medications on a regular basis but states that she has not been compliant with her diet and did have a recent upper respiratory infection. BNP level on admission 2270. TSH level 7.8, troponins 0.034, 0.037, 0.046. D-dimer came back to be elevated, VQ scan low probability for PE. Patient is currently on IV heparin, not on oral anticoagulation at home. According to [facility] recommendations, anticoagulation therapy is indicated. It appears that this is been discontinued in the past secondary to bleeding and also secondary to the fact the patient refused to take anticoagulation according to the office notes. We will rediscuss this with the patient again at this time, she does have again a low hemoglobin this morning. She is currently on IV Lasix. Documented weight appears to be up from yesterday. Hemoglobin on admission 10.2, 8.4 this morning. BUN 24, creatinine 1.3. 06/24/2017 Patient seen and examined this morning, sitting up in the chair at bedside. She has been putting out urine, overweight is as same as yesterday. I did have a lengthy discussion with the patient this morning regarding the need for anticoagulation for stroke prevention, she is willing to be started on an oral anticoagulant. She did not have any lab work this morning, we will order a CBC as well as lytes BUN and creatinine. We will monitor the hemoglobin closely. Check to see if the patient has coverage, if so we will initiate Eliquis 2-1/2 mg one tablet by mouth twice a day. does understand the risk of bleeding but also understands the need for anticoagulation for stroke prevention Objective - Vital Signs Vital signs: Vital Signs Temp 97.6 F 06/24/17 08:57 Pulse 96 06/24/17 11:05 Resp 18 06/24/17 08:57 BP 128/56 06/24/17 08:57 Pulse Ox 97 06/24/17 08:57 Intake & Output 06/23/17 06/24/17 06/24/17 18:59 06:59 18:59 Intake Total 534 500 180 Output Total 800 500 Balance -266 0 180 Weight 95.2 kg 95.2 kg Intake: Intake, IV Titration 500 Amount Heparin Sodium,Porcine/ 500 D5w Pmx 25,000 unit In Dextrose/Water 1 500ml. bag @ 11 UNITS/KG/HR 19. 95 mls/hr IV .Q24H [facility] Rx #:[id number] Oral 534 180 Output: Urine 800 500 Other: Voiding Method Bedside Commode Bedside Commode Bedside Commode # Voids 2 - Exam PHYSICAL EXAMINATION: HEENT: Head is atraumatic, normocephalic. Pupils equal, round. Neck is supple. There is no elevated jugular venous pressure. HEART EXAMINATION: Heart S1 and S2 irregularly irregular a systolic ejection murmur is heard. CHEST EXAMINATION: Lungs are clear with mild diminished air entry to the bases ABDOMEN: Soft, nontender. Bowel sounds are heard. No organomegaly noted. EXTREMITIES: 1+ peripheral pulses with evidence of peripheral edema and no calf tenderness noted. NEUROLOGIC patient is awake, alert and oriented -3. . - Labs CBC & Chem 7: 06/24/17 05:54 06/24/17 05:54 Labs: Abnormal Lab Results - Last 24 Hours (Table) 06/23/17 06/23/17 06/24/17 Range/Units 16:39 21:08 05:54 RBC 3.14 L (3.80-5.40) m/uL Hgb 8.4 L (11.4-16.0) gm/dL Hct 27.0 L (34.0-46.0) % RDW 15.6 H (11.5-15.5) % APTT (22.0-30.0) sec BUN (7-17) mg/dL Creatinine (0.52-1.04) mg/dL POC Glucose (mg/dL) 268 H 245 H (75-99) mg/dL 06/24/17 06/24/17 06/24/17 Range/Units 05:54 06:23 07:26 RBC (3.80-5.40) m/uL Hgb (11.4-16.0) gm/dL Hct (34.0-46.0) % RDW (11.5-15.5) % APTT 55.5 H (22.0-30.0) sec BUN 28 H (7-17) mg/dL Creatinine 1.31 H (0.52-1.04) mg/dL POC Glucose (mg/dL) 105 H (75-99) mg/dL 06/24/17 Range/Units 11:35 RBC (3.80-5.40) m/uL Hgb (11.4-16.0) gm/dL Hct (34.0-46.0) % RDW (11.5-15.5) % APTT (22.0-30.0) sec BUN (7-17) mg/dL Creatinine (0.52-1.04) mg/dL POC Glucose (mg/dL) 241 H (75-99) mg/dL Assessment and Plan (1) Diastolic CHF, acute on chronic Status: Acute (2) Chronic a-fib Status: Acute (3) Hx of CABG Status: Acute (4) S/P AVR Status: Acute (5) Diabetes Status: Acute (6) Elevated troponin Status: Acute (7) HTN (hypertension) Status: Acute (8) Hx of CABG Status: Acute (9) Hyperlipemia Status: Acute (10) History of GI bleed Status: Acute (11) Anemia Status: Acute Plan: From cardiology standpoint, we'll discontinue the IV Lasix. Increase home dose of Lasix. Check on Eliquis for anticoagulation. DNP note has been reviewed, I agree with a documented findings and plan of care. Patient was seen and examined.
--- NOTE | 2017-06-24 12:35 | CT ---
EXAMINATION TYPE: CT brain wo con DATE OF EXAM: 06/24/2017 COMPARISON: NONE HISTORY: Recurrent dizziness and occipital pain CT DLP: 1047.[address] of the brain was performed. The ventricles, basal cisterns and sulci overlying the cerebral convexities demonstrate mild enlargem ent. There is no evidence for intracranial hemorrhage or sulcal effacement. There is decreased attenuation about the periventricular white matter and deep white matter of both c erebral hemispheres, compatible with chronic small vessel ischemia. Differential diagnosis does inclu de demyelination. No mass effects are seen.No midline shift. Osseous calvarium is intact. If symptoms persist consider MRI. IMPRESSION: 1. Age related atrophic and chronic small vessel ischemic change without acute intracranial process s een at this time.
[2017-06-24 14:30] LABS: Iron Saturation 5.37 (12.00-45.00)
[2017-06-24] MEDS: FUROSEMIDE 20 MG TAB PO SCH (16:21)
[2017-06-24] MEDS: FUROSEMIDE 80 MG TAB PO SCH (16:21)
[2017-06-24 16:40] LABS: Glucose,Whole Blood 310 mg/dL (75-99)
[2017-06-24] MEDS: INSULIN DETEMIR 100 UNIT/ML 10 ML VIAL SQ SCH (17:02)
[2017-06-24] MEDS: LIDOCAINE 5% PATCH TOPICAL SCH (20:33)
[2017-06-24] MEDS: LATANOPROST 0.005% OPHTH DROPS 2.5 ML BTL RIGHT EYE SCH (20:34)
[2017-06-24] MEDS ORDERED: APIXABAN 2.5 MG TABLET PO SCH (21:00)
[2017-06-24 21:01] LABS: Glucose,Whole Blood 209 mg/dL (75-99)
[2017-06-24] MEDS: MELATONIN 3 MG TABLET PO SCH (21:56)
--- NOTE | 2017-06-24 22:27 | P.PN ---
Subjective This patient is a 86-year-old female who was seen in neurology consultation yesterday for dizziness and occipital headache pain. Patient's neurological exam findings yesterday suggested she has bilateral occipital neuritis. We requested a consultation from anesthesia for procedure of a bilateral occipital nerve block to be done for this patient. We are still awaiting anesthesias consultation for the patient. Patient has noticed increased symptoms of dizziness just prior to her experiencing severe occipital headache pain. She does have evidence of occipital neuritis with significant tenderness in the suboccipital notch bilaterally. She otherwise is also being monitored for evidence of orthostatic hypotension. We will instruct the nursing staff to contact anesthesia tomorrow morning to reconsult them for the occipital nerve block procedure for this patient. She still does demonstrate evidence of moderate degree of occipital neuritis on palpation. We have recommended that she should apply moist heat to the head and neck region when she is discharged back to home. The patient otherwise has been doing fairly well today. She looks more awake and alert today as compared to yesterday. We will continue close neurological follow-up of this patient during this admission. Objective - Vital Signs Vital signs: Vital Signs Temp 97.8 F 06/24/17 16:35 Pulse 83 06/24/17 16:35 Resp 18 06/24/17 16:35 BP 115/55 06/24/17 16:35 Pulse Ox 97 06/24/17 16:35 Intake & Output 06/24/17 06/24/17 06/25/17 06:59 18:59 06:59 Intake Total 500 560 Output Total 500 Balance 0 560 Weight 95.2 kg 95.2 kg Intake: Intake, IV Titration 500 Amount Heparin Sodium,Porcine/ 500 D5w Pmx 25,000 unit In Dextrose/Water 1 500ml. bag @ 11 UNITS/KG/HR 19. 95 mls/hr IV .Q24H [facility] Rx #:[id number] Oral 560 Output: Urine 500 Other: Voiding Method Bedside Commode Bedside Commode # Voids 2 5 - Exam Physical examination: PHYSICAL EXAMINATION: Patient is resting comfortably in bed. VITAL SIGNS: Blood pressure is [115/55]. Heart rate is [60]. Respiration is [16] . Temperature is [97.8]. HEENT: Head is atraumatic, neck is supple, there were no carotid bruits. CHEST: Lungs are clear to auscultation and percussion. CARDIAC: S1, S2 normal rate and rhythm. There is no murmur. ABDOMEN: Soft and nontender. Bowel sounds are present. EXTREMITIES: There is no pedal edema. Peripheral pulses are present. Neurological examination: Patient's neurological examination is unchanged from yesterday. - Labs CBC & Chem 7: 06/24/17 05:54 06/24/17 05:54 Labs: Abnormal Lab Results - Last 24 Hours (Table) 06/23/17 06/24/17 06/24/17 Range/Units 21:08 05:54 05:54 RBC 3.14 L (3.80-5.40) m/uL Hgb 8.4 L (11.4-16.0) gm/dL Hct 27.0 L (34.0-46.0) % RDW 15.6 H (11.5-15.5) % APTT (22.0-30.0) sec BUN (7-17) mg/dL Creatinine (0.52-1.04) mg/dL POC Glucose (mg/dL) 245 H (75-99) mg/dL Iron 19 L (50-170) ug/dL Iron Saturation 5.37 L (12.00-45.00) 06/24/17 06/24/17 06/24/17 Range/Units 05:54 06:23 07:26 RBC (3.80-5.40) m/uL Hgb (11.4-16.0) gm/dL Hct (34.0-46.0) % RDW (11.5-15.5) % APTT 55.5 H (22.0-30.0) sec BUN 28 H (7-17) mg/dL Creatinine 1.31 H (0.52-1.04) mg/dL POC Glucose (mg/dL) 105 H (75-99) mg/dL Iron (50-170) ug/dL Iron Saturation (12.00-45.00) 06/24/17 06/24/17 Range/Units 11:35 16:35 RBC (3.80-5.40) m/uL Hgb (11.4-16.0) gm/dL Hct (34.0-46.0) % RDW (11.5-15.5) % APTT (22.0-30.0) sec BUN (7-17) mg/dL Creatinine (0.52-1.04) mg/dL POC Glucose (mg/dL) 241 H 310 H (75-99) mg/dL Iron (50-170) ug/dL Iron Saturation (12.00-45.00) Assessment and Plan (1) Occipital neuritis Status: Acute Code(s): M54.81 - OCCIPITAL NEURALGIA (2) Benign positional vertigo Status: Acute Code(s): H81.10 - BENIGN PAROXYSMAL VERTIGO, UNSPECIFIED EAR (3) Chronic a-fib Status: Acute Code(s): I48.2 - CHRONIC ATRIAL FIBRILLATION (4) S/P AVR Status: Acute Code(s): Z95.2 - PRESENCE OF PROSTHETIC HEART VALVE (5) Acute congestive heart failure Status: Acute Code(s): I50.9 - HEART FAILURE, UNSPECIFIED Plan: This patient is a 86-year-old female with multiple complex medical issues. Neurology was consulted due to evaluation of dizziness. Patient has been having symptoms of disequilibrium and balance issues when standing. More recently she is also been experiencing the same symptoms when laying in bed. She states the symptoms are always preceded by severe bilateral suboccipital headache pain. Her neurological examination today reveals evidence of bilateral occipital neuritis. We have recommended she undergo a bilateral occipital nerve block procedure for further treatment. We will also obtain a routine computed tomography scan of the brain. Patient's neurological examination otherwise is nonfocal. She does have a history of chronic atrial fibrillation but has declined any use of anticoagulant medications for treatment. We will await further recommendations from cardiology. We have instructed the nursing staff to contact anesthesia tomorrow morning for re- consultation for a bilateral occipital nerve block procedure for this patient. Patient denies any new symptoms of headache or dizziness. She has been able to stand did bedside and seems to be relatively stable. She is to be monitored for orthostatic blood pressure changes. The patient underwent computed tomography scan of the brain today which revealed age related atrophy and chronic small vessel ischemic changes. No evidence of acute stroke or hemorrhage. Patient should be closely monitored for orthostatic hypotension as well. We will await anesthesia to see the patient tomorrow for occipital nerve block treatment and procedure. We will monitor her response to this treatment and we'll give further recommendations at that time. We will continue close neurological follow-up for this patient during this admission. Her overall prognosis at this time remains guarded.
[2017-06-24] MEDS: TEMAZEPAM 15 MG CAP PO SCH (22:29)
[2017-06-24] MEDS ORDERED: TEMAZEPAM 15 MG CAP PO SCH (22:45)
[2017-06-25 06:10] LABS: Glucose,Whole Blood 156 mg/dL (75-99)
[2017-06-25] MEDS: glipiZIDE 10 MG TAB PO SCH ×2 (06:41→17:20)
[2017-06-25] MEDS: CARVEDILOL 3.125 MG TAB PO SCH ×2 (06:41→17:20)
[2017-06-25] MEDS: LEVOTHYROXINE 75 MCG TAB PO SCH (06:41)
[2017-06-25] MEDS: VIT A,C & E-LUTEIN-MINERALS 1 EACH TAB PO SCH ×2 (06:42→17:21)
[2017-06-25] MEDS: INSULIN LISPRO (humaLOG) 300 UNIT/3 ML VIAL SQ SCH ×4 (06:42→22:30)
[2017-06-25] MEDS: ALBUTEROL NEBULIZED 2.5 MG/3 ML INHALATION PRN ×4 (07:38→23:05)
[2017-06-25] MEDS: FUROSEMIDE 80 MG TAB PO SCH ×2 (08:16→17:20)
[2017-06-25] MEDS: ALLOPURINOL 100 MG TAB PO SCH ×2 (08:16→22:30)
[2017-06-25] MEDS: LINAGLIPTIN 5 MG TABLET PO SCH (08:16)
[2017-06-25] MEDS: FUROSEMIDE 20 MG TAB PO SCH ×2 (08:16→17:20)
[2017-06-25] MEDS: ACETAMINOPHEN TAB 325 MG TAB PO PRN (09:10)
--- NOTE | 2017-06-25 09:20 | P.PN ---
Subjective Principal diagnosis: CHF This is a pleasant 86-year-old female patient who sees Dr. Daigle in the office on regular basis with a past medical history significant for CAD and prior coronary artery bypass grafting with unknown details at this point, known severe ischemic cardiomyopathy and status post ICD , diabetes, hypertension, dyslipidemia, and chronic atrial fibrillation presented to the hospital complaining of progressive dyspnea. The patient has been experiencing progressive exertional dyspnea as well as orthopnea and also bilateral lower extremities edema started a few weeks ago. Her symptoms got worse over the last several days and she decided to come to the hospital. She states that she was not having any chest discomfort to yesterday when she developed a brief episode of chest discomfort. The patient stated that she was taking all her medications. She was not compliant with her diet. She did not have any recent history of upper respiratory infection. The chest x-ray came in to be unremarkable. The BNP came in to be elevated. The EKG showed atrial fibrillation was controlled heart rate with a right bundle branch block and nonspecific changes most prominent in the lateral leads. The patient was started on Lasix IV with significant improvement in these symptoms and then she was switched into Lasix by mouth. On follow-up with her today on 06/25/2017, she seems to be doing good. She denies having any chest pain or discomfort. The shortness of breath is back to baseline. The patient is not a candidate to receive any kind of anticoagulation because she received oral anticoagulation in the past and she developed significant GI bleeding. Objective - Vital Signs Vital signs: Vital Signs Temp 98.7 F 06/25/17 04:00 Pulse 80 06/25/17 08:02 Resp 16 06/25/17 07:40 BP 124/63 06/25/17 04:00 Pulse Ox 97 06/25/17 04:00 Intake & Output 06/24/17 06/25/17 06/25/17 18:59 06:59 18:59 Intake Total 560 20 180 Balance 560 20 180 Weight 95.2 kg 96 kg Intake: IV 20 0.9 ns 20 Oral 560 180 Other: Voiding Method Bedside Commode # Voids 5 2 - Constitutional General appearance: Present: no acute distress - Respiratory Respiratory: bilateral: wheezing - Cardiovascular Rhythm: irregularly irregular - Labs CBC & Chem 7: 06/24/17 05:54 06/24/17 05:54 Labs: Abnormal Lab Results - Last 24 Hours (Table) 06/24/17 06/24/17 06/24/17 Range/Units 05:54 11:35 16:35 POC Glucose (mg/dL) 241 H 310 H (75-99) mg/dL Iron 19 L (50-170) ug/dL Iron Saturation 5.37 L (12.00-45.00) 06/24/17 06/25/17 Range/Units 20:59 06:06 POC Glucose (mg/dL) 209 H 156 H (75-99) mg/dL Iron (50-170) ug/dL Iron Saturation (12.00-45.00) Assessment and Plan Plan: At this point, I will continue oral diuretics. Continue the current medical treatment. From a perivascular standpoint of view, we'll see the patient on when necessary case.
[2017-06-25] MEDS ORDERED: BUPIVACAINE (PF) 0.5% 30 ML VIAL MISCELLANE ONE (10:44)
[2017-06-25] MEDS ORDERED: TRIAMCINOLONE ACETONIDE 40 MG/ML 1 ML VIAL INTRADERMA ONE (10:45)
--- NOTE | 2017-06-25 11:30 | P.PCN ---
Date of Procedure: 06/25/17 Preoperative Diagnosis: Bilateral occipital neuralgia Myofascial pain in the cervical paravertebral musculature Postoperative Diagnosis: Same as above Procedure(s) Performed: Bilateral occipital nerve block Trigger point injection in the right cervical paravertebral musculature and suboccipital area Anesthesia: local, none Surgeon: Juan Rocha Pathology: none sent Condition: stable Disposition: PACU Description of Procedure: The patient was seen and identified in the preoperative area. Risks, benefits, complications, and alternatives were discussed with the patient, the patient agreed to proceed with the procedure and signed the consent. IV was started. Vital signs remained stable throughout the procedure. Patient was taken to the OR and time out was completed. The patient was placed in the prone position on the procedure table. A pillow was placed under the patients chest to increase the cervical interlaminar space. The cervical area and B/L occiptial area were prepped with ChloraPrep. Critical pause was taken. Vital signs were closely monitored during the procedure. Conscious sedation was used during the procedure to decrease patients anxiety. . The the occipital exuberance and superior nuchal line were identified on each side of the occiput. The greater occipital nerve location was estimated to be medial to the occipital artery and one third of the distance between the occipital exuberance and the lesser occipital nerve was identified two thirds of the distance between the occipital exuberance and the mastoid. I used 25- gauge 1-1/2 inch needle to go through the skin at these 2 points and infiltrate 2.5 MLS of a solution made up of 7 MLS Marcaine 0.5% +20 mg of Kenalog. Only a total of 5 MLS of the solution was given for these blocks. The solution was infiltrated down to the periosteum. I then did trigger point injection on the right cervical paravertebral musculature and the suboccipital area using 25- gauge 1-1/2 inch needle and infiltrated 2 MLS of the above-mentioned solution .Patient tolerated procedure well.
[2017-06-25 11:32] LABS: Glucose,Whole Blood 266 mg/dL (75-99)
[2017-06-25 16:48] LABS: Glucose,Whole Blood 211 mg/dL (75-99)
[2017-06-25] MEDS: INSULIN DETEMIR 100 UNIT/ML 10 ML VIAL SQ SCH (17:24)
[2017-06-25 21:01] LABS: Glucose,Whole Blood 186 mg/dL (75-99)
--- NOTE | 2017-06-25 21:56 | P.PN ---
Subjective This patient is a 86-year-old female who was seen in neurology consultation yesterday for dizziness and occipital headache pain. Patient's neurological exam findings yesterday suggested she has bilateral occipital neuritis. We requested a consultation from anesthesia for procedure of a bilateral occipital nerve block to be done for this patient. We are still awaiting anesthesias consultation for the patient. Patient has noticed increased symptoms of dizziness just prior to her experiencing severe occipital headache pain. She does have evidence of occipital neuritis with significant tenderness in the suboccipital notch bilaterally. She otherwise is also being monitored for evidence of orthostatic hypotension. We will instruct the nursing staff to contact anesthesia tomorrow morning to reconsult them for the occipital nerve block procedure for this patient. She still does demonstrate evidence of moderate degree of occipital neuritis on palpation. We have recommended that she should apply moist heat to the head and neck region when she is discharged back to home. The patient otherwise has been doing fairly well today. She looks more awake and alert today as compared to yesterday. We will continue close neurological follow-up of this patient during this admission. Objective - Vital Signs Vital signs: Vital Signs Temp 98.5 F 06/25/17 17:25 Pulse 87 06/25/17 17:25 Resp 16 06/25/17 17:25 BP 131/69 06/25/17 17:25 Pulse Ox 96 06/25/17 17:25 Intake & Output 06/25/17 06/25/17 06/26/17 06:59 18:59 06:59 Intake Total 20 580 Balance 20 580 Weight 96 kg Intake: IV 20 0.9 ns 20 Oral 580 Other: Voiding Method Bedside Commode # Voids 2 3 - Exam Physical examination: PHYSICAL EXAMINATION: Patient is resting comfortably in bed. VITAL SIGNS: Blood pressure is [131/69]. Heart rate is [87]. Respiration is [16] . Temperature is [98.5]. HEENT: Head is atraumatic, neck is supple, there were no carotid bruits. CHEST: Lungs are clear to auscultation and percussion. CARDIAC: S1, S2 normal rate and rhythm. There is no murmur. ABDOMEN: Soft and nontender. Bowel sounds are present. EXTREMITIES: There is no pedal edema. Peripheral pulses are present. Neurological examination: Patient's neurological examination is unchanged from yesterday. - Labs CBC & Chem 7: 06/24/17 05:54 06/24/17 05:54 Labs: Abnormal Lab Results - Last 24 Hours (Table) 06/25/17 06/25/17 06/25/17 Range/Units 06:06 11:30 16:46 POC Glucose (mg/dL) 156 H 266 H 211 H (75-99) mg/dL 06/25/17 Range/Units 20:55 POC Glucose (mg/dL) 186 H (75-99) mg/dL Assessment and Plan (1) Occipital neuritis Status: Acute Code(s): M54.81 - OCCIPITAL NEURALGIA (2) Benign positional vertigo Status: Acute Code(s): H81.10 - BENIGN PAROXYSMAL VERTIGO, UNSPECIFIED EAR (3) Chronic a-fib Status: Acute Code(s): I48.2 - CHRONIC ATRIAL FIBRILLATION (4) S/P AVR Status: Acute Code(s): Z95.2 - PRESENCE OF PROSTHETIC HEART VALVE (5) Acute congestive heart failure Status: Acute Code(s): I50.9 - HEART FAILURE, UNSPECIFIED Plan: This patient is a 86-year-old female with multiple complex medical issues. Neurology was consulted due to evaluation of dizziness. Patient has been having symptoms of disequilibrium and balance issues when standing. More recently she is also been experiencing the same symptoms when laying in bed. She states the symptoms are always preceded by severe bilateral suboccipital headache pain. Her neurological examination today reveals evidence of bilateral occipital neuritis. We have recommended she undergo a bilateral occipital nerve block procedure for further treatment. We will also obtain a routine computed tomography scan of the brain. Patient's neurological examination otherwise is nonfocal. She does have a history of chronic atrial fibrillation but has declined any use of anticoagulant medications for treatment. We will await further recommendations from cardiology. We have instructed the nursing staff to contact anesthesia tomorrow morning for re- consultation for a bilateral occipital nerve block procedure for this patient. Patient denies any new symptoms of headache or dizziness. She has been able to stand did bedside and seems to be relatively stable. She is to be monitored for orthostatic blood pressure changes. The patient underwent computed tomography scan of the brain today which revealed age related atrophy and chronic small vessel ischemic changes. No evidence of acute stroke or hemorrhage. Patient should be closely monitored for orthostatic hypotension as well. We will await anesthesia to see the patient tomorrow for occipital nerve block treatment and procedure. We will monitor her response to this treatment and we'll give further recommendations at that time. The patient was able to complete a occipital nerve block procedure today. She feels there has been some improvement in terms of headache management following this procedure. We reminded her that may take several days to really see the full effect of this treatment. The patient does have a history of chronic atrial fibrillation. Cardiology feels she is not a candidate for anticoagulation if she does have a history of significant GI bleeding in the past. We will need to continue to monitor her in terms of her headache symptoms and dizziness. She does seem to be doing better today. We will continue close neurological follow-up for this patient during this admission. Her overall prognosis at this time remains guarded.
[2017-06-25] MEDS: LATANOPROST 0.005% OPHTH DROPS 2.5 ML BTL RIGHT EYE SCH (22:29)
[2017-06-25] MEDS: TEMAZEPAM 15 MG CAP PO SCH (22:29)
[2017-06-25] MEDS: LIDOCAINE 5% PATCH TOPICAL SCH (22:35)
--- NOTE | 2017-06-25 23:06 | EEG ---
ELECTROENCEPHALOGRAM REPORT DATE OF EE06/25/2017 INDICATION FOR EXAMINATION: This patient is an 86-year-old female being evaluated for acute dizziness and headaches. AGE: 86 years. EEG FINDINGS: A routine 21-channel awake digital EEG recording was accomplished utilizing the 10-20 international system with bipolar and referential montages. The background activity in the most alert resting state consists of a low to medium amplitude, fairly well- developed well-sustained 7-8 Hertz activity over the posterior head regions. This posterior rhythm attenuates to eye opening. There is a small amount of low amplitude 18-20 Hertz beta activity seen maximally over the anterior head regions. Muscle and movement artifact was observed on a few occasions during the tracing. Hyperventilation was not performed. Photic stimulation at flash frequencies of 2-30 Hertz produced a good symmetrical occipital driving response. No epileptiform discharges were seen. IMPRESSION: This EEG is within normal limits for the patient's age. The EEG failed to reveal any focal, lateralized, or epileptiform abnormalities. Clinical correlation is recommended. MMODL / IJN: [id number] /
--- NOTE | 2017-06-25 23:14 | P.PN ---
Subjective Principal diagnosis: Acute CHF exacerbation. Patient is a 86-year-old female with a known history of coronary artery disease status post bypass graft in 2010 and ACD placement, hypertension, diabetes type 2 [id number] and multiple other medical problems came to the hospital with complaints of worsening Short of breath since yesterday. Apparently patient has been having short of breath and dizziness for the past few months. Denied any fever or chills. Denied any chest pain. No nausea or vomiting abdominal pain. She says that she typically does not wear oxygen however has required it today. She states it is worse with exertion and better with rest. Does not seem to be related to position. She has no associated chest pain however does complain of some lightheadedness at times. She does admit to some lower extremity swelling however mild. She states that she has not had a CHF exacerbation in 2 years. Her political analyst is Dr. Daigle. She denies any recent travel or surgeries. No history of PE or DVT. No other complaints. BNP 2270, troponin 0.037. Hemoglobin 10.2 potassium 3.4 EKG showed atrial flutter Chest x-ray showed no acute process VQ scan showed low powered for PE 06/22/2017 Patient says that her breathing is better today. Continued on IV diuresis with 20 mg of Lasix twice daily. 2-D echo report is pending. Patient was found to have elevated TSH level and was started on thyroid supplements Patient denied any chest pain or short of breath worsening. No nausea vomiting or abdominal pain. No acute otherwise overnight issues. 06/23/2017 Patient says that she has been having dizziness whenever she gets up and go to the bathroom and also complaints of neck pain. Dizziness has been going on for a while as per the patient. Patient says that she's been feeling grinding sensation in the lower neck. Orthostatic vitals as ordered. We'll order carotid duplex and CT cervical spine without contrast. We will also consult neurology for further evaluation of dizziness. No compressive chest pain. No other acute overnight issues. 06/24/2017 Patient is to accompany of suboccipital headaches and dizziness. Neurology has seen the patient and suspected occipital neuritis and is planning for nerve block. Patient with a status improved now and Lasix has been changed to by mouth. Orthostatic vitals were negative. Carotid duplex showed 50-69% stenosis. CT cervical spine showed narrowed foramen and degenerative disc disease. Patient denied any chest pain no fever no chills. No acute overnight issues. Objective - Vital Signs Vital signs: Vital Signs Temp 97.1 F L 06/24/17 20:00 Pulse 96 06/24/17 21:14 Resp 18 06/24/17 20:00 BP 138/69 06/24/17 20:00 Pulse Ox 94 L 06/24/17 20:00 Intake & Output 06/24/17 06/24/17 06/25/17 06:59 18:59 06:59 Intake Total 500 560 10 Output Total 500 Balance 0 560 10 Weight 95.2 kg 95.2 kg Intake: IV 10 0.9 ns 10 Intake, IV Titration 500 Amount Heparin Sodium,Porcine/ 500 D5w Pmx 25,000 unit In Dextrose/Water 1 500ml. bag @ 11 UNITS/KG/HR 19. 95 mls/hr IV .Q24H [facility] Rx #:[id number] Oral 560 Output: Urine 500 Other: Voiding Method Bedside Commode Bedside Commode # Voids 2 5 - Exam PHYSICAL EXAMINATION: Patient is lying in the bed comfortably, no acute distress, awake alert and oriented.. HEENT: Normocephalic. Neck is supple. Cervical muscle tenderness in the back. Pupils reactive. Nostrils clear. Oral cavity is moist. Ears reveal no drainage. Neck reveals no JVD, carotid bruits, or thyromegaly. CHEST EXAMINATION: Trachea is central. Symmetrical expansion. Lung nicolas clear to auscultation and percussion. CARDIAC: Normal S1, S2 with no gallops. No murmurs ABDOMEN: Soft. Bowel sounds normal. No organomegaly. No abdominal bruits. Extremities 1+ edema. No clubbing or cyanosis Neurologically awake, alert, oriented x3 with well-coordinated movements. Skin: no rash or skin lesions Musculoskeletal: no joint swelling or deformity. - Labs CBC & Chem 7: 06/24/17 05:54 06/24/17 05:54 Labs: Abnormal Lab Results - Last 24 Hours (Table) 06/24/17 06/24/17 06/24/17 Range/Units 05:54 05:54 05:54 RBC 3.14 L (3.80-5.40) m/uL Hgb 8.4 L (11.4-16.0) gm/dL Hct 27.0 L (34.0-46.0) % RDW 15.6 H (11.5-15.5) % APTT (22.0-30.0) sec BUN 28 H (7-17) mg/dL Creatinine 1.31 H (0.52-1.04) mg/dL POC Glucose (mg/dL) (75-99) mg/dL Iron 19 L (50-170) ug/dL Iron Saturation 5.37 L (12.00-45.00) 06/24/17 06/24/17 06/24/17 Range/Units 06:23 07:26 11:35 RBC (3.80-5.40) m/uL Hgb (11.4-16.0) gm/dL Hct (34.0-46.0) % RDW (11.5-15.5) % APTT 55.5 H (22.0-30.0) sec BUN (7-17) mg/dL Creatinine (0.52-1.04) mg/dL POC Glucose (mg/dL) 105 H 241 H (75-99) mg/dL Iron (50-170) ug/dL Iron Saturation (12.00-45.00) 06/24/17 06/24/17 Range/Units 16:35 20:59 RBC (3.80-5.40) m/uL Hgb (11.4-16.0) gm/dL Hct (34.0-46.0) % RDW (11.5-15.5) % APTT (22.0-30.0) sec BUN (7-17) mg/dL Creatinine (0.52-1.04) mg/dL POC Glucose (mg/dL) 310 H 209 H (75-99) mg/dL Iron (50-170) ug/dL Iron Saturation (12.00-45.00) Assessment and Plan Plan: #1 shortness of breath secondary to acute CHF exacerbation. EF ejection fraction unknown. 2-D echo report pending. #2 dizziness and disequilibrium followed by Sub occipital headache. Likely due to occipital neuritis. #2 chronic atrial fibrillation. Not on anticoagulation at home. Patient refused to take anti-correlation previously. #3 history of coronary artery disease and bypass graft. AICD placement as well #4 history of aortic valve replacement #4 hypokalemia #5 hypertension #6 diabetes type 2 [id number] #7 hypothyroidism #8 obstructive sleep apnea on CPAP at home #9 acute on chronic kidney disease stage III . creatinine 1.2 #10 obesity with BMI 34.3 #11 history of gout stable #12 hypothyroidism. Started on levothyroxine 75 g daily. Plan: Lasix has been changed to by mouth. Planning for by mouth anticoagulation. Continue with Coreg. Patient is ALLERGIC to aspirin. Continue with telemetry monitoring and serial EKGs and troponins. Cardiology is following. VQ scan showed low probability for PE. Neurology is planning for occipital nerve block. Continued warm compresses. Continue to follow closely and further recommendations based on the clinical course. Prognosis is guarded with multiple medical problems and comorbid conditions. Time with Patient: Greater than 30
--- NOTE | 2017-06-25 23:18 | P.PN ---
Subjective Principal diagnosis: Acute CHF exacerbation. Patient is a 86-year-old female with a known history of coronary artery disease status post bypass graft in 2010 and ACD placement, hypertension, diabetes type 2 [id number] and multiple other medical problems came to the hospital with complaints of worsening Short of breath since yesterday. Apparently patient has been having short of breath and dizziness for the past few months. Denied any fever or chills. Denied any chest pain. No nausea or vomiting abdominal pain. She says that she typically does not wear oxygen however has required it today. She states it is worse with exertion and better with rest. Does not seem to be related to position. She has no associated chest pain however does complain of some lightheadedness at times. She does admit to some lower extremity swelling however mild. She states that she has not had a CHF exacerbation in 2 years. Her activities counselor is Dr. Daigle. She denies any recent travel or surgeries. No history of PE or DVT. No other complaints. BNP 2270, troponin 0.037. Hemoglobin 10.2 potassium 3.4 EKG showed atrial flutter Chest x-ray showed no acute process VQ scan showed low powered for PE 06/22/2017 Patient says that her breathing is better today. Continued on IV diuresis with 20 mg of Lasix twice daily. 2-D echo report is pending. Patient was found to have elevated TSH level and was started on thyroid supplements Patient denied any chest pain or short of breath worsening. No nausea vomiting or abdominal pain. No acute otherwise overnight issues. 06/23/2017 Patient says that she has been having dizziness whenever she gets up and go to the bathroom and also complaints of neck pain. Dizziness has been going on for a while as per the patient. Patient says that she's been feeling grinding sensation in the lower neck. Orthostatic vitals as ordered. We'll order carotid duplex and CT cervical spine without contrast. We will also consult neurology for further evaluation of dizziness. No compressive chest pain. No other acute overnight issues. 06/24/2017 Patient is to accompany of suboccipital headaches and dizziness. Neurology has seen the patient and suspected occipital neuritis and is planning for nerve block. Patient with a status improved now and Lasix has been changed to by mouth. Orthostatic vitals were negative. Carotid duplex showed 50-69% stenosis. CT cervical spine showed narrowed foramen and degenerative disc disease. Patient denied any chest pain no fever no chills. No acute overnight issues. 06/25/2017 Patient underwent occipital nerve block injections. Today patient says that her dizziness is slightly better. Otherwise patient is still complaining of shortness of breath when she ambulates. Patient was able to sleep well last night with Restoril 15 mg. No complaints of chest pain. No overnight issues. Cardiology recommends no anticoagulation due to previous GI bleed with blood thinners. Patient also refused anticoagulation. Current medications reviewed. Objective - Vital Signs Vital signs: Vital Signs Temp 98.5 F 06/25/17 17:25 Pulse 87 06/25/17 17:25 Resp 16 06/25/17 17:25 BP 131/69 06/25/17 17:25 Pulse Ox 96 06/25/17 17:25 Intake & Output 06/25/17 06/25/17 06/26/17 06:59 18:59 06:59 Intake Total 20 580 Balance 20 580 Weight 96 kg Intake: IV 20 0.9 ns 20 Oral 580 Other: Voiding Method Bedside Commode # Voids 2 3 - Exam PHYSICAL EXAMINATION: Patient is lying in the bed comfortably, no acute distress, awake alert and oriented.. HEENT: Normocephalic. Neck is supple. Cervical muscle tenderness in the back. Pupils reactive. Nostrils clear. Oral cavity is moist. Ears reveal no drainage. Neck reveals no JVD, carotid bruits, or thyromegaly. CHEST EXAMINATION: Trachea is central. Symmetrical expansion. Lung nicolas clear to auscultation and percussion. CARDIAC: Normal S1, S2 with no gallops. No murmurs ABDOMEN: Soft. Bowel sounds normal. No organomegaly. No abdominal bruits. Extremities 1+ edema. No clubbing or cyanosis Neurologically awake, alert, oriented x3 with well-coordinated movements. Skin: no rash or skin lesions Musculoskeletal: no joint swelling or deformity. - Labs CBC & Chem 7: 06/24/17 05:54 06/24/17 05:54 Labs: Abnormal Lab Results - Last 24 Hours (Table) 06/25/17 06/25/17 06/25/17 Range/Units 06:06 11:30 16:46 POC Glucose (mg/dL) 156 H 266 H 211 H (75-99) mg/dL 06/25/17 Range/Units 20:55 POC Glucose (mg/dL) 186 H (75-99) mg/dL Assessment and Plan Plan: #1 shortness of breath secondary to acute CHF exacerbation. EF ejection fraction unknown. 2-D echo report pending. #2 dizziness and disequilibrium followed by Sub occipital headache. Likely due to occipital neuritis. #2 chronic atrial fibrillation. Not on anticoagulation at home. Patient refused to take anti-correlation previously. #3 history of coronary artery disease and bypass graft. AICD placement as well #4 history of aortic valve replacement #4 hypokalemia #5 hypertension #6 diabetes type 2 [id number] #7 hypothyroidism #8 obstructive sleep apnea on CPAP at home #9 acute on chronic kidney disease stage III . creatinine 1.2 #10 obesity with BMI 34.3 #11 history of gout stable #12 hypothyroidism. Started on levothyroxine 75 g daily. Plan: Lasix has been changed to by mouth. Planning for by mouth anticoagulation. Continue with Coreg. Patient is ALLERGIC to aspirin. Continue with telemetry monitoring and serial EKGs and troponins. Cardiology is following. VQ scan showed low probability for PE. Neurology is planning for occipital nerve block. Continued warm compresses. Continue to follow closely and further recommendations based on the clinical course. Prognosis is guarded with multiple medical problems and comorbid conditions. Time with Patient: Greater than 30
[2017-06-26] MEDS: LEVOTHYROXINE 75 MCG TAB PO SCH (06:18)
[2017-06-26 07:06] LABS: Glucose,Whole Blood 155 mg/dL (75-99)
[2017-06-26 08:36] VITALS: BP 105/61; RESP 18; TEMP 97.1
[2017-06-26] MEDS: FUROSEMIDE 20 MG TAB PO SCH (08:57)
[2017-06-26] MEDS: LINAGLIPTIN 5 MG TABLET PO SCH (08:58)
[2017-06-26] MEDS: FUROSEMIDE 80 MG TAB PO SCH (08:58)
[2017-06-26] MEDS: INSULIN LISPRO (humaLOG) 300 UNIT/3 ML VIAL SQ SCH ×2 (08:58→12:21)
[2017-06-26] MEDS: CARVEDILOL 3.125 MG TAB PO SCH (08:58)
[2017-06-26] MEDS: ALLOPURINOL 100 MG TAB PO SCH (08:58)
[2017-06-26] MEDS: glipiZIDE 10 MG TAB PO SCH (08:58)
[2017-06-26] MEDS: VIT A,C & E-LUTEIN-MINERALS 1 EACH TAB PO SCH ×2 (08:58→08:59)
[2017-06-26] MEDS: ALBUTEROL NEBULIZED 2.5 MG/3 ML INHALATION PRN ×2 (09:09→11:20)
[2017-06-26 11:23] VITALS: PULSE 70
[2017-06-26 11:45] LABS: Glucose,Whole Blood 268 mg/dL (75-99)
--- NOTE | 2017-06-26 21:50 | ECHOF ---
Referral Reason:LV FUNCTION MEASUREMENTS -------- HEIGHT: 162.6 cm WEIGHT: 90.7 kg BP: 133/67 IVSd: 1.9 cm (0.6 - 1.1) LVIDd: 4.3 cm (3.9 - 5.3) LVPWd: 1.7 cm (0.6 - 1.1) IVSs: 2.1 cm LVIDs: 3.9 cm LVPWs: 1.5 cm LAESV Index (A-L): 56.51 ml/m Ao Diam: 2.9 cm (2.0 - 3.7) AV Cusp: 1.1 cm (1.5 - 2.6) LA Diam: 5.3 cm (2.7 - 3.8) MV EXCURSION: 15.965 mm (> 18.000) MV EF SLOPE: 44 mm/s (70 - 150) MV E Hardik: 1.58 m/s MV DecT: 326 ms MV A Hardik: 0.51 m/s MV E/A Ratio: 3.07 AV maxP.81 mmHg AV meanP.31 mmHg RAP: 5.00 mmHg RVSP: 48.80 mmHg FINDINGS -------- Paced rhythm. This was a technically adequate study. There is severe concentric left ventricular hypertrophy. Overall left ventricular systolic function is normal with, an EF between 55 - 60 %. The right ventricle is normal in size. LA is severely dilated >40 ml/m2 The right atrial size is normal. Peak/mean gradient across the Aortic Valve is 51.81mmHg / 28.31mmHg. 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 Moderate mitral annular calcification present. Moderate mitral regurgitation is present. The peak and mean MV gradients are 13.73mmHg 5.24mmHg as measured by doppler. Mild tricuspid regurgitation present. There is moderate pulmonary hypertension. The right ventricular systolic pressure, as measured by Doppler, is 48.80mmHg. Trace/mild (physiologic) pulmonic regurgitation. The aortic root size is normal. There is no pericardial effusion. CONCLUSIONS -------- 1. There is severe concentric left ventricular hypertrophy. 2. There is moderate pulmonary hypertension. 3. The right ventricular systolic pressure, as measured by Doppler, is 48.80mmHg. 4. Trace/mild (physiologic) pulmonic regurgitation. 5. The aortic root size is normal. 6. There is no pericardial effusion. 7. Overall left ventricular systolic function is normal with, an EF between 55 - 60 %. 8. LA is severely dilated >40 ml/m2 9. Peak/mean gradient across the Aortic Valve is 51.81mmHg / 28.31mmHg. 10. 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 11. Moderate mitral annular calcification present. 12. Moderate mitral regurgitation is present. 13. The peak and mean MV gradients are 13.73mmHg 5.24mmHg as measured by doppler. 14. Mild tricuspid regurgitation present. COMMUNICATIONS MANAGER: Micaela Welsh RDCS
== END 2017-06-26 15:20 | disposition home health service (06) | DRG 291 ==
LOC: EC 13:10 → 6SEL 15:12 → 4MS4W 06-25 17:14
PROVIDERS: ADMIT Internal Medicine; ATTEND Internal Medicine
PROC: 3E0T3BZ Introduction of Anesthetic Agent into Peripheral Nerves and Plexi, Percutaneous Approach (ICD-10-PCS; principal; 2017-06-25 10:00)
PROC: 3E0T33Z Introduction of Anti-inflammatory into Peripheral Nerves and Plexi, Percutaneous Approach (ICD-10-PCS; principal; 2017-06-25 10:00)
DX: I13.0 Hypertensive heart and chronic kidney disease with heart failure and stage 1 through stage 4 chronic kidney disease, or unspecified chronic kidney disease (principal); I50.43 Acute on chronic combined systolic (congestive) and diastolic (congestive) heart failure; E11.22 Type 2 diabetes mellitus with diabetic chronic kidney disease; I48.92 Unspecified atrial flutter; I48.2 Chronic atrial fibrillation; D64.9 Anemia, unspecified; E03.9 Hypothyroidism, unspecified; E66.9 Obesity, unspecified; E78.5 Hyperlipidemia, unspecified; G47.33 Obstructive sleep apnea (adult) (pediatric); H40.9 Unspecified glaucoma; H54.42 Blindness, left eye, normal vision right eye; H81.10 Benign paroxysmal vertigo, unspecified ear; I25.10 Atherosclerotic heart disease of native coronary artery without angina pectoris; I45.10 Unspecified right bundle-branch block; M10.9 Gout, unspecified; M50.30 Other cervical disc degeneration, unspecified cervical region; M54.81 Occipital neuralgia; N18.3 Chronic kidney disease, stage 3 (moderate); Z79.82 Long term (current) use of aspirin; Z79.899 Other long term (current) drug therapy; Z82.49 Family history of ischemic heart disease and other diseases of the circulatory system; Z82.5 Family history of asthma and other chronic lower respiratory diseases; Z83.3 Family history of diabetes mellitus; Z86.711 Personal history of pulmonary embolism; Z87.891 Personal history of nicotine dependence; Z88.6 Allergy status to analgesic agent; Z91.19 Patient's noncompliance with other medical treatment and regimen; Z95.1 Presence of aortocoronary bypass graft; Z95.2 Presence of prosthetic heart valve; Z95.810 Presence of automatic (implantable) cardiac defibrillator; Z79.84 Long term (current) use of oral hypoglycemic drugs; M79.1 Myalgia
CPT/HCPCS: 36415; 70450; 71020; 72125; 78582; 80048; 80053; 82550; 82553; 82728; 83036; 83540; 83550; 83735; 83880; 84439; 84443; 84484; 85025; 85379; 85610; 85730; 93005; 93306; 93880; 94640; 95816; 96365; 96375; 96376; 99285

== ENCOUNTER 2017-11-03 10:55 | Inpatient (IN) | payer MEDICARE ==
--- NOTE | 2017-11-03 11:37 | ED ---
General Adult HPI - General Chief complaint: Shortness of Breath Stated complaint: weakness/SOB Time Seen by Provider: 11/03/17 10:57 Source: patient, EMS, RN notes reviewed, old records reviewed Mode of arrival: EMS Limitations: no limitations - History of Present Illness Initial comments: 87-year-old female presents by EMS status post fall. Patient was getting out of bed, she slid out of bed and fell to her knees. No significant injury. Patient initially called EMS for lift assist. She was quite short of breath, she was encouraged by EMS to present to the emergency department for evaluation. She has history of coronary artery disease status post open heart surgery 2010, she has chronic peripheral edema which she states is improved from previous baseline. She had an episode of anemia in the past. She has weekly blood draws to follow her hemoglobin. She denies cough. Denies fever. States she was short of breath although this is at baseline. She also complained of some mild lightheadedness over the past several days, as well as intermittent headache. - Related Data Home Medications Medication Instructions Recorded Confirmed Bimatoprost [Lumigan .01% Ophth 1 drop RIGHT EYE HS 03/25/14 11/03/17 Soln] Carvedilol [Coreg] 3.125 mg PO BID 03/25/14 11/03/17 Furosemide [Lasix] 20 mg PO DAILY 03/25/14 11/03/17 glipiZIDE [Glucotrol] 10 mg PO AC-BID 03/25/14 11/03/17 sitaGLIPtin [Januvia] 100 mg PO DAILY 03/25/14 11/03/17 Allopurinol 200 mg PO BID 03/07/15 11/03/17 Insulin Detemir [Levemir] 100 unit SQ AC-SUPPER 06/21/17 11/03/17 Cholecalciferol [Vitamin D3] 1,000 unit PO DAILY 08/28/17 11/03/17 Cyanocobalamin [Vitamin B-12] 500 mcg PO DAILY 08/28/17 11/03/17 Ubidecarenone [Co Q-10] 100 mg PO DAILY 08/28/17 11/03/17 Acetaminophen-Codeine 300-30mg 1 tab PO Q6HR PRN 11/03/17 11/03/17 [Tylenol w/codeine #3] Albuterol Inhaler [Ventolin Hfa 1 - 2 puff INHALATION RT-Q6H PRN 11/03/17 Inhaler] Albuterol Nebulized [Ventolin 2.5 mg INHALATION RT-Q6H PRN 11/03/17 11/03/17 Nebulized] Furosemide [Lasix] 20 mg PO DAILY@1500 PRN 11/03/17 11/03/17 Furosemide [Lasix] 80 mg PO DAILY 11/03/17 11/03/17 Levothyroxine Sodium [Synthroid] 75 mcg PO DAILY 11/03/17 11/03/17 Melatonin 5 mg PO HS 11/03/17 11/03/17 Allergies Allergy/AdvReac Type Severity Reaction Status Date / Time aspirin Allergy Unknown Verified 11/03/17 11:22 bee pollen [Bee Pollen] Allergy Anaphylaxis Verified 11/03/17 11:22 celecoxib [From Celebrex] Allergy Unknown Verified 11/03/17 11:22 blood thinners Allergy Severe see comment Uncoded 11/03/17 11:22 URIC ACIDS AdvReac GOUT Uncoded 11/03/17 11:22 Review of Systems ROS Statement: Those systems with pertinent positive or pertinent negative responses have been documented in the HPI. ROS Other: All systems not noted in ROS Statement are negative. Past Medical History Past Medical History: Coronary Artery Disease (CAD), Cancer, Heart Failure, Diabetes Mellitus, GI Bleed, Hypertension, Osteoarthritis (OA), Pulmonary Embolus (PE), Sleep Apnea/CPAP/BIPAP, Thyroid Disorder Additional Past Medical History / Comment(s): gout, chronic pain in back hip and leg, diverticulitis, LT EYE BLIND,GLAUCOMA, MAC DEGEBERATION, MURMUR, DIVERTICULAR DX.OVARIAN CYSTS,ANEMIA,SKIN CA,ANEMIA, TRACHEBRONCHITIS WITH REACTIVE BRONCHOSPASM.used to use cpap machine but stopped 1 year ago d/t mask not fitting well. Increased shortness of breath with activity and at rest. History of Any Multi-Drug Resistant Organisms: None Reported Past Surgical History: Appendectomy, Bowel Resection, Breast Surgery, Cholecystectomy, Coronary Bypass/CABG, Hysterectomy, Orthopedic Surgery, Pacemaker, Tonsillectomy Additional Past Surgical History / Comment(s): pacemaker, AORTIC VALVE REPLACEMENT(TISSUE), CYST REMOVED FROM HAND/HEAD,BOWEL RESECTION D/T DIVERTICULITIS.KRISTYN FILTER Past Anesthesia/Blood Transfusion Reactions: No Reported Reaction Type of Cardiac Device: Permanent Pacemaker Device Placement Date:: 2010 Past Psychological History: Depression Smoking Status: Former smoker Past Alcohol Use History: None Reported Past Drug Use History: None Reported - Past Family History Brother(s) History Unknown: Yes Father Family Medical History: Cancer Additional Family Medical History / Comment(s): ALCOHOLIC-- 1969 Mother Family Medical History: Cancer, Coronary Artery Disease (CAD), Dementia, Diabetes Mellitus Additional Family Medical History / Comment(s): 1984 General Exam Limitations: no limitations General appearance: alert, in no apparent distress Head exam: Present: atraumatic, normocephalic Eye exam: Present: normal appearance, PERRL ENT exam: Present: normal exam Neck exam: Present: normal inspection. Absent: tenderness, meningismus Respiratory exam: Present: decreased breath sounds. Absent: respiratory distress, wheezes, accessory muscle use Cardiovascular Exam: Present: regular rate, irregular rhythm GI/Abdominal exam: Present: soft. Absent: distended, tenderness Extremities exam: Present: normal inspection, normal capillary refill. Absent: full ROM, tenderness, pedal edema Neurological exam: Present: alert, oriented X3, CN II-XII intact. Absent: motor sensory deficit Psychiatric exam: Present: normal affect, normal mood Skin exam: Present: warm, dry, intact. Absent: cyanosis, diaphoretic Course Vital Signs 11/03/17 11/03/17 11/03/17 10:56 11:36 11:57 Temperature 98.7 F Pulse Rate 89 77 Respiratory 20 18 18 Rate Blood Pressure 130/60 156/70 O2 Sat by Pulse 98 100 Oximetry 11/03/17 11/03/17 13:16 14:05 Temperature 98.3 F Pulse Rate 79 81 Respiratory 20 18 Rate Blood Pressure 173/76 150/67 O2 Sat by Pulse 100 98 Oximetry EKG Findings - EKG Comments: EKG Findings:: EKG shows atrial fibrillation, ventricular rate of 76, QRS duration 134, QTC 474, there is right bundle branch block, no signs of acute ischemia. Compared with previous EKG August 2017 unchanged. Medical Decision Making - Medical Decision Making 87-year-old female presenting with mild dyspnea and lightheadedness as well as recurrent headache. There was no specific injury in the fall. Chest x-rays obtained, shows chronic parenchymal changes, with cardiomegaly. Head CT is negative for any acute intracranial pathology. White blood cell count normal 10 , hemoglobin is 8.8 which is improved from 8.5. Electrolytes within normal limits. Troponin is 0.028, this is improved from previous as well. BNP is elevated at 3800 which is worsening from previous. Creatinine 1.31 which is improved from previous 1.42. Patient's dyspnea likely secondary to congestive heart failure. She will be admitted for further evaluation and treatment. - Lab Data Result diagrams: 11/03/17 11:39 11/03/17 11:39 Lab Results 11/03/17 11/03/17 11/03/17 Range/Units 11:39 11:39 11:39 WBC 10.0 (3.8-10.6) k/uL RBC 4.74 (3.80-5.40) m/uL Hgb 8.8 L (11.4-16.0) gm/dL Hct 33.3 L (34.0-46.0) % MCV 70.2 L D (80.0-100.0) fL MCH 18.6 L (25.0-35.0) pg MCHC 26.5 L (31.0-37.0) g/dL RDW 18.3 H (11.5-15.5) % Plt Count 231 (150-450) k/uL Neutrophils % 86 % Lymphocytes % 8 % Monocytes % 5 % Eosinophils % 1 % Basophils % 0 % Neutrophils # 8.6 H (1.3-7.7) k/uL Lymphocytes # 0.8 L (1.0-4.8) k/uL Monocytes # 0.5 (0-1.0) k/uL Eosinophils # 0.1 (0-0.7) k/uL Basophils # 0.0 (0-0.2) k/uL Hypochromasia Marked Poikilocytosis Slight Anisocytosis Slight Microcytosis Marked PT (9.0-12.0) sec INR (<1.2) APTT (22.0-30.0) sec Sodium 141 (137-145) mmol/L Potassium 4.6 (3.5-5.1) mmol/L Chloride 106 (98-107) mmol/L Carbon Dioxide 24 (22-30) mmol/L Anion Gap 11 mmol/L BUN 23 H (7-17) mg/dL Creatinine 1.31 H (0.52-1.04) mg/dL Est GFR (MDRD) Af Amer 47 (>60 ml/min/1.73 sqM) Est GFR (MDRD) Non-Af 38 (>60 ml/min/1.73 sqM) Glucose 150 H (74-99) mg/dL Calcium 9.5 (8.4-10.2) mg/dL Magnesium 1.9 (1.6-2.3) mg/dL Total Bilirubin 1.3 (0.2-1.3) mg/dL AST 53 H (14-36) U/L ALT 31 (9-52) U/L Alkaline Phosphatase 143 H (38-126) U/L Troponin I (0.000-0.034) ng/mL NT-Pro-B Natriuret Pep 3810 pg/mL Total Protein 6.1 L (6.3-8.2) g/dL Albumin 3.6 (3.5-5.0) g/dL 11/03/17 11/03/17 Range/Units 11:39 11:39 WBC (3.8-10.6) k/uL RBC (3.80-5.40) m/uL Hgb (11.4-16.0) gm/dL Hct (34.0-46.0) % MCV (80.0-100.0) fL MCH (25.0-35.0) pg MCHC (31.0-37.0) g/dL RDW (11.5-15.5) % Plt Count (150-450) k/uL Neutrophils % % Lymphocytes % % Monocytes % % Eosinophils % % Basophils % % Neutrophils # (1.3-7.7) k/uL Lymphocytes # (1.0-4.8) k/uL Monocytes # (0-1.0) k/uL Eosinophils # (0-0.7) k/uL Basophils # (0-0.2) k/uL Hypochromasia Poikilocytosis Anisocytosis Microcytosis PT 10.7 (9.0-12.0) sec INR 1.1 (<1.2) APTT 24.2 (22.0-30.0) sec Sodium (137-145) mmol/L Potassium (3.5-5.1) mmol/L Chloride (98-107) mmol/L Carbon Dioxide (22-30) mmol/L Anion Gap mmol/L BUN (7-17) mg/dL Creatinine (0.52-1.04) mg/dL Est GFR (MDRD) Af Amer (>60 ml/min/1.73 sqM) Est GFR (MDRD) Non-Af (>60 ml/min/1.73 sqM) Glucose (74-99) mg/dL Calcium (8.4-10.2) mg/dL Magnesium (1.6-2.3) mg/dL Total Bilirubin (0.2-1.3) mg/dL AST (14-36) U/L ALT (9-52) U/L Alkaline Phosphatase (38-126) U/L Troponin I 0.028 (0.000-0.034) ng/mL NT-Pro-B Natriuret Pep pg/mL Total Protein (6.3-8.2) g/dL Albumin (3.5-5.0) g/dL Disposition Clinical Impression: Dyspnea, CHF (congestive heart failure), Elevated troponin Disposition: ADMITTED IP TO THIS [facility] Condition: Stable Referrals: Jesse Amor MD [Primary Care Provider] - 1-2 days Decision to Admit Reason: Admit from EC Decision Date: 11/03/17 Decision Time: 14:19
[2017-11-03 11:54] LABS: Albumin 3.6 g/dL (3.5-5.0); Calcium 9.5 mg/dL (8.4-10.2); Magnesium 1.9 mg/dL (1.6-2.3); Potassium 4.6 mmol/L (3.5-5.1); Total Bilirubin 1.3 mg/dL (0.2-1.3); Total Protein 6.1 g/dL (6.3-8.2)
--- NOTE | 2017-11-03 12:03 | XR ---
EXAMINATION TYPE: XR chest 2V DATE OF EXAM: 11/03/2017 COMPARISON: Chest x-ray September 02, 2017. HISTORY: Redness of breath, bilateral leg edema. TECHNIQUE: Frontal and lateral views of the chest are obtained. FINDINGS: There is chronic interstitial changes redemonstrated without new focal air space opacity o pacity or pneumothorax seen. There is suspected small posterior effusion on lateral view. The cardia c silhouette size is enlarged with dual lead pacemaker. The osseous structures are demineralized. M etallic aortic valve is noted. IMPRESSION: Chronic parenchymal changes and cardiomegaly without suspicious acute pulmonary process.
[2017-11-03 12:14] LABS: Anisocytosis Slight; Basophils % (A) 0 %; Eosinophils # (A) 0.1 k/uL (0-0.7); Eosinophils % (A) 1 %; HCT 33.3 % (34.0-46.0); HGB 8.8 gm/dL (11.4-16.0); Hypochromasia Marked; Lymphocytes # (A) 0.8 k/uL (1.0-4.8); Lymphocytes % (A) 8 %; MCH 18.6 pg (25.0-35.0); MCHC 26.5 g/dL (31.0-37.0); Mean Platelet Volume 8.4; Microcytosis Marked; Monocytes # (A) 0.5 k/uL (0-1.0); Monocytes % (A) 5 %; Neutrophils # (A) 8.6 k/uL (1.3-7.7); Neutrophils % (A) 86 %; Platelet Count 231 k/uL (150-450); Poikilocytosis Slight; RBC 4.74 m/uL (3.80-5.40); RDW 18.3 % (11.5-15.5)
[2017-11-03 12:16] LABS: MCV 70.2 fL (80.0-100.0)
[2017-11-03 12:21] LABS: INR 1.1 (<1.2); Partial Thromboplastin Time 24.2 sec (22.0-30.0); Prothrombin Time 10.7 sec (9.0-12.0)
[2017-11-03] MEDS ORDERED: ACETAMINOPHEN TAB 500 MG TAB PO STA (13:23)
--- NOTE | 2017-11-03 14:10 | CT ---
EXAMINATION TYPE: CT brain wo con DATE OF EXAM: 11/03/2017 COMPARISON: 06/24/2017 HISTORY: Weakness/SOB CT DLP: 1138 mGycm Automated exposure control for dose reduction was used. TECHNIQUE: CT scan of the head is performed without contrast. FINDINGS: There is no acute intracranial hemorrhage or midline shift identified. There is diffuse v entricular and sulcal prominence consistent with diffuse age-related cerebral atrophy. No suspicious extra-axial fluid collection. Atherosclerosis is seen of the intracranial vasculature. There is low- attenuation in the periventricular white matter consistent with chronic small vessel ischemic change. The globes are intact and the visualized sinuses are clear. IMPRESSION: 1. No acute intracranial process. 2. Redemonstration of diffuse age-related cerebral atrophy and nonspecific white matter change most c ommonly on the basis of microangiopathy unchanged from the prior.
[2017-11-03] MEDS ORDERED: HYDROcodone/APAP 5-325MG 1 EACH TAB PO PRN (14:12)
[2017-11-03] MEDS ORDERED: NALOXONE 0.4 MG/ML 1 ML VIAL IV PRN (14:12)
[2017-11-03] MEDS ORDERED: ASPIRIN 325 MG TAB PO STA (14:14)
[2017-11-03 17:58] LABS: Glucose,Whole Blood 152 mg/dL (75-99)
[2017-11-03] MEDS: INSULIN ASPART 100 UNIT/ML 1 ML 10 ML VIAL SQ SCH ×2 (18:13→20:42)
[2017-11-03] MEDS: CARVEDILOL 3.125 MG TAB PO SCH (18:13)
[2017-11-03] MEDS: INSULIN DETEMIR 100 UNIT/ML 10 ML VIAL SQ SCH (18:35)
[2017-11-03 20:36] LABS: Glucose,Whole Blood 215 mg/dL (75-99)
[2017-11-03] MEDS: FUROSEMIDE 10 MG/ML 2 ML VIAL IV SCH (20:40)
[2017-11-03] MEDS: ALLOPURINOL 100 MG TAB PO SCH (20:40)
[2017-11-03] MEDS: LATANOPROST 0.005% OPHTH DROPS 2.5 ML BTL RIGHT EYE SCH (20:40)
[2017-11-03] MEDS: MELATONIN 5 MG TABLET PO SCH (20:40)
--- NOTE | 2017-11-03 21:44 | HP ---
HISTORY AND PHYSICAL DATE OF SERVICE: 11/03/17. CHIEF COMPLAINT: Fall. BRIEF HISTORY: Patient is an 87-year-old female patient brought to the ED by the EMS after a fall. Patient according to records, patient was getting out of the bed when she slipped out of bed and fell to her knees. There were no significant injuries. Patient could not get up. Initially she called EMS for assistance to get her up, but then she felt quite short of breath and she was encouraged to present to the ED. Patient consented. She has she also complained of some mild lightheadedness and some headache. PAST MEDICAL HISTORY: Significant for coronary artery disease, CHF, diabetes, GI bleed, hypertension, osteoarthritis, history of PE, sleep apnea, hypothyroidism, left eye blindness, glaucoma, diverticulosis and diverticulitis, macular degeneration, ovarian cyst, anemia, and history of tracheobronchitis. PAST SURGICAL HISTORY: Significant for aortic valve replacement, pacemaker insertion. The Briseyda filter insertion, bowel resection for diverticulitis. SOCIAL HISTORY: Patient is a former smoker. No history of alcohol abuse or IV drug abuse history. FAMILY HISTORY: Significant for cancer in father. Patient does not know what kind, and father was an alcoholic and history of cancer and coronary artery disease, dementia and diabetes in mother. ALLERGIES: PATIENT IS ALLERGIC TO ASPIRIN, BEE POLLEN, CELEBREX, BLOOD THINNERS, AND URIC ACID. MEDICATIONS: Patient is on taking Lumigan eyedrops 1 drop right eye q.h.s. Coreg 3.125 b.i.d., Lasix 20 mg p.o. daily and glipizide 10 mg p.o. b.i.d. and Januvia 100 mg p.o. daily. Allopurinol 200 mg b.i.d., Levemir subcu q.h.s., vitamin D3 1000 units daily, vitamin B12 500 mg p.o. daily and Tylenol with codeine 1 q.6 hours p.r.n., Ventolin inhaler 2 puffs q.i.d., Lasix 20 mg q.h.s. and 80 mg in the morning. Levothyroxine 75 mcg daily, melatonin 5 mg daily. REVIEW OF SYSTEM: Constitutional: Denies fevers, fever and chills. Neck: No jugular venous distention. HEENT denies vision or hearing loss. Respiratory as described above. Cardiovascular no chest pain. No palpitations. GI/abdomen: No nausea, vomiting or diarrhea. Genitourinary: No dysuria. No hematuria. Musculoskeletal: Patient denies any joint swelling or tenderness. Neurological: Does give history of feeling dizzy and complains of headache. ENDOCRINE: No polyuria, polydipsia, she has history of hypertension, hypothyroidism, and diabetes. Hematological: History of anemia but no bleeding or coagulation disorder. Lymphatic system: No palpable lymph nodes. Rest of 14-point review of system is unremarkable. PHYSICAL EXAMINATION: Vital signs: Temperature of 98.7, pulse 89, respiration 20, blood pressure 130/60, O2 saturation 98%. GENERAL: Patient is awake, alert, oriented x3. No acute distress. HEENT atraumatic, normocephalic. Pupils equal and reactive to light. Extraocular movements intact. Buccal mucosa is moist. NECK: Supple. No goiter or lymphadenopathy. JVD is negative. No carotid bruit heard. Lungs decreased breath sounds bilaterally. No rales, rhonchi, or wheezes. Heart is regular rate and rhythm without murmurs, gallop rhythm. ABDOMEN: Soft, nontender, nondistended. Bowel sounds positive. EXTREMITIES: No edema, clubbing, cyanosis. Pulses are palpable. Neurological examination cranial nerves 2-12 grossly intact. No gross motor or sensory deficit. Psychiatric examination: Patient has normal mood and affect. SKIN: Warm, dry, and intact. EKG shows atrial fibrillation, ventricular rate of 76. LAB: CBC white blood count 10, hemoglobin 8.8, hematocrit 33.3, and platelet count of 231. Chemical profile sodium 141, potassium 4.6, chloride 106, bicarb 24, BUN 23, creatinine 1.3, glucose 150. The patient's troponin was 0.028. BNP was elevated at 3810. INR 1.1. ASSESSMENT: 1. Acute exacerbation congestive heart failure. 2. Elevated troponin; rule out acute coronary syndrome. 3. Dyspnea with hypoxemia secondary to congestive heart failure. 4. Acute on chronic kidney disease. 5. Anemia. 6. Hyperglycemia without acidosis. PLAN: Admit the patient to telemetry. Monitor cardiac enzymes and EKG. Consult Cardiology. We will resume home medications. We will start patient on IV Lasix. Monitor I and Os, renal function and electrolytes closely and make supplementations as needed. MMODL / IJN: [id number] /
[2017-11-03] MEDS: Acetaminophen-Codeine 300-30mg TAB PO PRN (23:33)
[2017-11-04 04:12] LABS: Hemoglobin A1C 5.8 % (4.0-6.0)
[2017-11-04] MEDS: LEVOTHYROXINE 75 MCG TAB PO SCH (06:08)
[2017-11-04 06:58] LABS: Glucose,Whole Blood 98 mg/dL (75-99)
[2017-11-04 08:03] LABS: Anisocytosis Slight; Basophils # (A) 0.1 k/uL (0-0.2); Basophils % (A) 1 %; Eosinophils # (A) 0.4 k/uL (0-0.7); Eosinophils % (A) 5 %; HCT 28.4 % (34.0-46.0); HGB 7.5 gm/dL (11.4-16.0); Hypochromasia Marked; Lymphocytes # (A) 1.7 k/uL (1.0-4.8); Lymphocytes % (A) 23 %; MCHC 26.5 g/dL (31.0-37.0); MCV 71.5 fL (80.0-100.0); Mean Platelet Volume 8.4; Microcytosis Marked; Monocytes # (A) 0.5 k/uL (0-1.0); Monocytes % (A) 7 %; Neutrophils # (A) 4.7 k/uL (1.3-7.7); Neutrophils % (A) 62 %; Platelet Count 189 k/uL (150-450); Poikilocytosis Slight; RBC 3.97 m/uL (3.80-5.40); RDW 18.4 % (11.5-15.5); WBC 7.6 k/uL (3.8-10.6)
[2017-11-04 08:16] LABS: Albumin 3.2 g/dL (3.5-5.0); Calcium 9.5 mg/dL (8.4-10.2); Magnesium 2.1 mg/dL (1.6-2.3); Potassium 3.6 mmol/L (3.5-5.1); Total Bilirubin 0.8 mg/dL (0.2-1.3); Total Protein 5.3 g/dL (6.3-8.2)
[2017-11-04] MEDS ORDERED: NON-FORMULARY DRUG (Ubidecarenone [Co Q-10] 100 MG) PO SCH (09:00)
[2017-11-04] MEDS: INSULIN ASPART 100 UNIT/ML 1 ML 10 ML VIAL SQ SCH ×4 (09:17→22:31)
[2017-11-04] MEDS: ALLOPURINOL 100 MG TAB PO SCH ×2 (09:18→22:30)
[2017-11-04] MEDS: FUROSEMIDE 10 MG/ML 2 ML VIAL IV SCH ×2 (09:18→22:30)
[2017-11-04] MEDS: CARVEDILOL 3.125 MG TAB PO SCH ×2 (09:18→18:09)
[2017-11-04] MEDS: Acetaminophen-Codeine 300-30mg TAB PO PRN ×2 (09:21→15:37)
[2017-11-04] MEDS: ALBUTEROL NEBULIZED 2.5 MG/3 ML INHALATION PRN (10:18)
--- NOTE | 2017-11-04 11:11 | P.CRDCN ---
History of Present Illness Consult date: 11/04/17 Consult reason: congestive heart failure History of present illness: Mrs. Callaway is a pleasant 87-year-old past medical history significant for coronary artery disease with subsequent single vessel bypass grafting, dual chamber pacemaker for sick sinus syndrome and complete heart block, bioprosthetic aortic valve replacement, chronic persistent atrial fibrillation not on senior care anticoagulation secondary to chronic anemia, COPD , hypertension, dyslipidemia, diastolic heart failure and diabetes mellitus. She follows with Dr. Daigle in the office. We have been asked to see her in consultation for evidence of possible heart failure. She states she was trying to get up out of bed yesterday when she became mildly dizzy and fell out of bed onto her left side. She denies symptoms of chest pain, shortness of breath, dizziness, palpitations, diaphoresis, nausea or vomiting. When she called EMS for assistance they noted her to be short of breath and recommended she come to ED for evaluation. EKG on arrival reveals atrial fibrillation with controlled ventricular response with underlying right bundle branch block. This is consistent with old EKG's. Chest xray shows chronic parenchymal changes and cardiomegaly without suspicious acute pulmonary process. Brain CT negative for an acute intracranial process with diffuse age related cerebral atrophy. Laboratory data reviewed, hemoglobin 7.5, platelets 189, potassium 3.6, magnesium 2.1, BUN 25, creatinine 1.5, troponin negative 1, proBNP 3810. Current cardiac medications include Lasix 20 mg daily and carvedilol 3.125 BID. At her last office visit she was on aldactone 25 mg, lasix 80 mg BID and imdur 30 mg daily. Most recent echocardiogram performed 06/2017 reveals preserved LV systolic function with EF 55-60%. Moderate concentric hypertrophy. Moderate MR, normal functioning aortic valve peak/mean gradient 38/22 mmHg, severely dilated left and right atrium. Most recent catheterization was 2012 revealed mild ostial disease of RCA and patent SVG-RCA. Review of Systems At this time my exam: CONSTITUTIONAL: Denies fever. Denies chills. EYES: Denies blurred vision. Denies vision changes. Denies eye pain. EARS, NOSE, MOUTH & THROAT: Denies headache. Denies sore throat. Denies ear pain. CARDIOVASCULAR: Denies chest pain. Denies shortness of breath. Denies orthopnea. Denies PND. Denies palpitations. RESPIRATORY: Denies cough. GASTROINTESTINAL: Denies abdominal pain. Denies diarrhea. Denies constipation. Denies nausea. Denies vomiting. MUSCULOSKELETAL: Complains of left hip, leg and knee pain. INTEGUMENTARY: Denies pruitis. Denies rash. NEUROLOGIC: Denies numbness. Denies tingling. Denies weakness. PSYCHIATRIC: Denies anxiety. Denies depression. ENDOCRINE: Denies fatigue. Denies weight change. Denies polydipsia. Denies polyurina. GENITOURINARY: Denies burning, hematuria or urgency with micturation. HEMATOLOGIC: Denies history of anemia. Denies bleeding. Past Medical History Past Medical History: Coronary Artery Disease (CAD), Cancer, Heart Failure, Diabetes Mellitus, GI Bleed, Hypertension, Osteoarthritis (OA), Pulmonary Embolus (PE), Sleep Apnea/CPAP/BIPAP, Thyroid Disorder Additional Past Medical History / Comment(s): gout, chronic pain in back hip and leg, diverticulitis, LT EYE BLIND,GLAUCOMA, MAC DEGENERATION RT EYE, MURMUR , DIVERTICULAR DX.OVARIAN CYSTS,ANEMIA,SKIN CA,ANEMIA, TRACHEBRONCHITIS WITH REACTIVE BRONCHOSPASM.used to use cpap machine . Increased shortness of breath with activity and at rest. ARACELI CARPAL TUNNEL, skin caner History of Any Multi-Drug Resistant Organisms: None Reported Past Surgical History: Appendectomy, Bowel Resection, Breast Surgery, Cardiac Valve Replacement, Cholecystectomy, Coronary Bypass/CABG, Heart Catheterization , Hysterectomy, Orthopedic Surgery, Pacemaker, Tonsillectomy Additional Past Surgical History / Comment(s): pacemaker, AORTIC VALVE REPLACEMENT(TISSUE) AND 1 VESSEL BYPASS, CYST REMOVED FROM HAND/HEAD,BOWEL RESECTION D/T DIVERTICULITIS.KRISTYN FILTER, COLONOCOSPY/POLYPECTOMY/EGD, PAST LT EYE SX-DAMAGED THE OPTIC NERVE-BLIND LT EYE.lt knee arthrosopy, skin cancer removed from hand/head Past Anesthesia/Blood Transfusion Reactions: No Reported Reaction Type of Cardiac Device: Permanent Pacemaker Device Placement Date:: 2010 Smoking Status: Former smoker - Past Family History Brother(s) History Unknown: Yes Father Family Medical History: Cancer Additional Family Medical History / Comment(s): ALCOHOLIC-- 1969 Mother Family Medical History: Cancer, Coronary Artery Disease (CAD), Dementia, Diabetes Mellitus Additional Family Medical History / Comment(s): 1984 Medications and Allergies Home Medications Medication Instructions Recorded Confirmed Type Bimatoprost [Lumigan .01% Ophth 1 drop RIGHT EYE HS 03/25/14 11/03/17 History Soln] Carvedilol [Coreg] 3.125 mg PO BID 03/25/14 11/03/17 History Furosemide [Lasix] 20 mg PO DAILY 03/25/14 11/03/17 History glipiZIDE [Glucotrol] 10 mg PO AC-BID 03/25/14 11/03/17 History sitaGLIPtin [Januvia] 100 mg PO DAILY 03/25/14 11/03/17 History Allopurinol 200 mg PO BID 03/07/15 11/03/17 History Insulin Detemir [Levemir] 100 unit SQ AC-SUPPER 06/21/17 11/03/17 History Cholecalciferol [Vitamin D3] 1,000 unit PO DAILY 08/28/17 11/03/17 History Cyanocobalamin [Vitamin B-12] 500 mcg PO DAILY 08/28/17 11/03/17 History Ubidecarenone [Co Q-10] 100 mg PO DAILY 08/28/17 11/03/17 History Acetaminophen-Codeine 300-30mg 1 tab PO Q6HR PRN 11/03/17 11/03/17 History [Tylenol w/codeine #3] Albuterol Inhaler [Ventolin Hfa 1 - 2 puff INHALATION RT-Q6H PRN 11/03/17 History Inhaler] Albuterol Nebulized [Ventolin 2.5 mg INHALATION RT-Q6H PRN 11/03/17 11/03/17 History Nebulized] Furosemide [Lasix] 20 mg PO DAILY@1500 PRN 11/03/17 11/03/17 History Furosemide [Lasix] 80 mg PO DAILY 11/03/17 11/03/17 History Levothyroxine Sodium [Synthroid] 75 mcg PO DAILY 11/03/17 11/03/17 History Melatonin 5 mg PO HS 11/03/17 11/03/17 History Allergies Allergy/AdvReac Type Severity Reaction Status Date / Time aspirin Allergy Unknown Verified 11/03/17 11:22 bee pollen [Bee Pollen] Allergy Anaphylaxis Verified 11/03/17 11:22 celecoxib [From Celebrex] Allergy Unknown Verified 11/03/17 11:22 blood thinners Allergy Severe see comment Uncoded 11/03/17 11:22 URIC ACIDS AdvReac GOUT Uncoded 11/03/17 11:22 Physical Exam Vitals: Vital Signs Temp Pulse Pulse Resp BP BP Pulse Ox 11/04/17 10:19 88 11/04/17 08:00 97.6 F 69 18 131/64 99 11/04/17 04:00 97.9 F 71 16 114/53 99 11/04/17 00:00 16 11/03/17 23:49 98.4 F 79 16 121/71 98 11/03/17 20:00 98.3 F 93 18 137/59 97 11/03/17 16:00 93 18 11/03/17 15:53 97.5 F L 93 18 131/64 96 11/03/17 15:00 97.6 F 81 18 125/60 99 11/03/17 14:05 81 18 150/67 98 11/03/17 13:16 98.3 F 79 20 173/76 100 11/03/17 11:57 77 18 156/70 100 11/03/17 11:36 18 11/03/17 10:56 98.7 F 89 20 130/60 98 Intake and Output 11/03/17 11/04/17 11/04/17 22:59 06:59 14:59 Intake Total 320 250 320 Output Total 250 Balance 320 250 70 Intake: Oral 320 250 320 Output: Urine 250 Other: Voiding Method Toilet Toilet Toilet # Voids 2 2 Weight 83.4 kg 83 kg 83 kg Patient Weight 11/05/17 06:59 Weight 83 kg Blood pressure 114/53 heart rate 71 afebrile GENERAL: This is a 87-year-old female in no apparent distress at the time of my examination. HEENT: Head is atraumatic, normocephalic. Pupils are equal, round. Sclerae anicteric. Conjunctivae are clear. Mucous membranes of the mouth are moist. Neck is supple. There is no jugular venous distention. No carotid bruit is heard. LUNGS: Faint bibasilar rales, no wheezes or rhonchi. No chest wall tenderness is noted on palpation or with deep breathing. HEART: Irregular rate and rhythm with systolic ejection murmur at the base, no rubs or gallops. S1 and S2 heard. ABDOMEN: Soft, nontender. Bowel sounds are heard. No organomegaly noted. EXTREMITIES: Moderate b/l lower extremity 2+ peripheral edema and no calf tenderness noted. VASCULAR: Radial and dorsalis pedis pulses palpated, no evidence of clubbing. NEUROLOGIC: Patient is awake, alert and oriented x3. Results 11/04/17 07:28 11/04/17 07:28 Cardiac Enzymes 11/03/17 11/03/17 11/04/17 Range/Units 11:39 11:39 07:28 AST 53 H 27 (14-36) U/L Troponin I 0.028 (0.000-0.034) ng/mL Coagulation 11/03/17 Range/Units 11:39 PT 10.7 (9.0-12.0) sec APTT 24.2 (22.0-30.0) sec CBC 11/03/17 11/04/17 Range/Units 11:39 07:28 WBC 10.0 7.6 (3.8-10.6) k/uL RBC 4.74 3.97 (3.80-5.40) m/uL Hgb 8.8 L 7.5 L (11.4-16.0) gm/dL Hct 33.3 L 28.4 L (34.0-46.0) % Plt Count 231 189 (150-450) k/uL Comprehensive Metabolic Panel 11/03/17 11/04/17 Range/Units 11:39 07:28 Sodium 141 143 (137-145) mmol/L Potassium 4.6 3.6 (3.5-5.1) mmol/L Chloride 106 108 H (98-107) mmol/L Carbon Dioxide 24 26 (22-30) mmol/L BUN 23 H 25 H (7-17) mg/dL Creatinine 1.31 H 1.50 H (0.52-1.04) mg/dL Glucose 150 H 93 (74-99) mg/dL Calcium 9.5 9.5 (8.4-10.2) mg/dL AST 53 H 27 (14-36) U/L ALT 31 27 (9-52) U/L Alkaline Phosphatase 143 H 131 H (38-126) U/L Total Protein 6.1 L 5.3 L (6.3-8.2) g/dL Albumin 3.6 3.2 L (3.5-5.0) g/dL Current Medications Generic Name Dose Route Start Last Admin Trade Name Freq PRN Reason Stop Dose Admin Acetaminophen 650 mg 11/03/17 14:12 Tylenol Tab PO Q6HR PRN Mild Pain or Fever > 100.5 Acetaminophen/Codeine Phosphate 1 each 11/03/17 17:04 11/04/17 09:21 Tylenol #3 PO 1 each Q6HR PRN Administration Moderate Pain Albuterol Sulfate 2.5 mg 11/03/17 17:04 11/04/17 10:18 Ventolin Nebulized INHALATION 2.5 mg RT-Q6H PRN Administration sob Allopurinol 200 mg 11/03/17 21:00 11/04/17 09:18 Zyloprim PO 200 mg BID IRENE Administration Carvedilol 3.125 mg 11/03/17 17:30 11/04/17 09:18 Coreg PO 3.125 mg BID-W/MEALS IRENE Administration Cholecalciferol 1,000 unit 11/04/17 12:00 Vitamin D3 PO 1200 IRENE Cyanocobalamin 500 mcg 11/04/17 12:00 Vitamin B-12 PO 1200 IRENE Furosemide 20 mg 11/03/17 21:00 11/04/17 09:18 Lasix IV 20 mg Q12HR IRENE Administration Insulin Aspart 0 unit 11/03/17 17:30 11/04/17 09:17 Novolog SQ 11/10/17 17:31 Not Given ACHS [facility] Protocol Insulin Detemir 100 unit 11/03/17 17:30 11/03/17 18:35 Levemir SQ 50 unit AC-SUPPER [facility] Administration Latanoprost 1 drops 11/03/17 21:00 11/03/17 20:40 Xalatan 0.005% RIGHT EYE 1 drops HS IRENE Administration Levothyroxine Sodium 75 mcg 11/04/17 06:30 11/04/17 06:08 Synthroid PO 75 mcg 0630 IRENE Administration Melatonin 5 mg 11/03/17 21:00 11/03/17 20:40 Melatonin PO 5 mg HS IRENE Administration Naloxone HCl 0.2 mg 11/03/17 14:12 Narcan IV Q2M PRN Opioid Reversal Intake and Output 11/03/17 11/04/17 11/04/17 22:59 06:59 14:59 Intake Total 320 250 320 Output Total 250 Balance 320 250 70 Intake: Oral 320 250 320 Output: Urine 250 Other: Voiding Method Toilet Toilet Toilet # Voids 2 2 Weight 83.4 kg 83 kg 83 kg Patient Weight 11/05/17 06:59 Weight 83 kg 11/04/17 07:28 11/04/17 07:28 Assessment and Plan Assessment: ASSESSMENT 1. Mild diastolic heart failure exacerbation. 2. Chronic persistent atrial fibrillation not on roasterman anticoagulation. 3. Stable coronary artery disease s/p bypass grafting 4. History of aortic valve replacement with bioprosthetic valve 5. Dual-chamber pacemaker in place secondary to sick sinus syndrome and complete heart block 6. Dyslipidemia 7. Hypertension 8. Diabetes mellitus PLAN Home medications should be clarified with the patient. We will resume her on aldactone 25 mg daily and imdur 30 mg daily. Continue with carvedilol as ordered. Lasix 20 mg BID was initiated in ED and we agree with continuing this for the next 24 hours. We will not repeat an echocardiogram at this time. Daily weights with strict intake and output. Further recommendations will be based upon clinical course. Nurse Practitioner note has been reviewed, I agree with a documented findings and plan of care. Patient was seen and examined.
[2017-11-04 12:12] LABS: Glucose,Whole Blood 243 mg/dL (75-99)
[2017-11-04] MEDS: ISOSORBIDE MONONITRATE ER 30 MG TAB.ER.24H PO SCH (12:56)
[2017-11-04] MEDS: SPIRONOLACTONE 25 MG TAB PO SCH (12:56)
[2017-11-04] MEDS: CYANOCOBALAMIN 500 MCG TAB PO SCH (12:57)
[2017-11-04] MEDS: CHOLECALCIFEROL 1,000 UNIT TAB PO SCH (12:57)
[2017-11-04 17:06] LABS: Glucose,Whole Blood 177 mg/dL (75-99)
[2017-11-04] MEDS: INSULIN DETEMIR 100 UNIT/ML 10 ML VIAL SQ SCH (18:08)
--- NOTE | 2017-11-04 18:22 | PN ---
PROGRESS NOTE DATE OF SERVICE: 11/04/2017. BRIEF HISTORY: Patient is an 87-year-old lady with history of coronary artery disease and coronary artery bypass grafting with a dual-chamber pacemaker for sick sinus syndrome. Brought into the hospital after complaint of fall. She was getting out of bed when she slipped and fell down to bed. The patient was having some trouble breathing. She was brought to the ER. In the ED patient was found to be in acute CHF. She is admitted for further treatment. Claims the breathing is better than yesterday. VITAL SIGNS: Temperature of 97.6, pulse 88, respirations 18, blood pressure 131/64, O2 saturation 99%. The patient is awake, alert, oriented x3. No acute distress. HEENT: Atraumatic, normocephalic. Pupils equal, round and reactive to light. Extraocular movements intact. Buccal mucosa is fair. Neck is supple. No goiter, lymphadenopathy. JVD is negative. No carotid bruit heard. Lungs positive bibasilar crackles. Heart is regular rate and rhythm without any murmurs or gallop rhythm. Abdomen is soft, nontender, nondistended. Bowel sounds positive. Extremities: No edema, clubbing, cyanosis. LABS: CBC white blood count 7.6, hemoglobin 7.5, hematocrit 28.4, and platelet count of 189. Chemical profile sodium 140, potassium 3.6, chloride 108, bicarb 26, BUN 25, creatinine 1.50. ASSESSMENT: 1. Acute exacerbation of diastolic congestive heart failure. 2. Severe anemia without any overt bleed. 3. Acute on chronic renal failure. 4. Elevated troponin. Acute coronary syndrome ruled out. 5. History of chronic anemia. 6. Hyperglycemia without acidosis. The patient remains on IV Lasix, has been seen by Cardiology. The patient is continued on home medications and Coreg. Plan is to do 2D echocardiogram and monitor daily weights and strict I's and Os, renal function and electrolytes. The patient's hemoglobin has dropped substantially from admission. Will monitor H and H regularly. Stool occult blood x3. Will add proton pump inhibitors. We will consult Gastroenterology if stool occult blood is positive. MMODL / IJN: [id number] /
[2017-11-04] MEDS: PANTOPRAZOLE 40 MG TABLET PO SCH (18:30)
[2017-11-04 18:33] LABS: Anisocytosis Slight; HCT 29.2 % (34.0-46.0); HGB 7.7 gm/dL (11.4-16.0); Hypochromasia Marked; MCH 19.1 pg (25.0-35.0); MCHC 26.5 g/dL (31.0-37.0); Mean Platelet Volume 8.1; Microcytosis Moderate; Platelet Count 210 k/uL (150-450); Poikilocytosis Slight; RBC 4.06 m/uL (3.80-5.40); RDW 18.2 % (11.5-15.5); WBC 10.4 k/uL (3.8-10.6)
[2017-11-04 20:45] LABS: Glucose,Whole Blood 134 mg/dL (75-99)
[2017-11-04] MEDS: MELATONIN 5 MG TABLET PO SCH (22:30)
[2017-11-04] MEDS: LATANOPROST 0.005% OPHTH DROPS 2.5 ML BTL RIGHT EYE SCH (22:30)
[2017-11-05] MEDS: Acetaminophen-Codeine 300-30mg TAB PO PRN ×3 (00:50→18:05)
[2017-11-05] MEDS: LEVOTHYROXINE 75 MCG TAB PO SCH (06:13)
[2017-11-05 06:50] LABS: Anisocytosis Slight; Basophils # (A) 0.1 k/uL (0-0.2); Basophils % (A) 1 %; Eosinophils # (A) 0.4 k/uL (0-0.7); Eosinophils % (A) 5 %; HCT 26.1 % (34.0-46.0); Hypochromasia Marked; Lymphocytes # (A) 1.2 k/uL (1.0-4.8); Lymphocytes % (A) 15 %; MCH 18.8 pg (25.0-35.0); MCHC 26.5 g/dL (31.0-37.0); Mean Platelet Volume 8.9; Microcytosis Marked; Monocytes # (A) 0.5 k/uL (0-1.0); Monocytes % (A) 7 %; Neutrophils # (A) 5.4 k/uL (1.3-7.7); Neutrophils % (A) 70 %; Platelet Count 161 k/uL (150-450); Poikilocytosis Slight; RBC 3.68 m/uL (3.80-5.40); RDW 19.4 % (11.5-15.5); WBC 7.8 k/uL (3.8-10.6)
[2017-11-05 06:59] LABS: Calcium 9.1 mg/dL (8.4-10.2); Potassium 3.9 mmol/L (3.5-5.1)
[2017-11-05 07:04] LABS: HGB 6.9 gm/dL (11.4-16.0)
[2017-11-05] MEDS: INSULIN ASPART 100 UNIT/ML 1 ML 10 ML VIAL SQ SCH ×4 (08:05→21:42)
[2017-11-05] MEDS: SPIRONOLACTONE 25 MG TAB PO SCH (08:25)
[2017-11-05] MEDS: ISOSORBIDE MONONITRATE ER 30 MG TAB.ER.24H PO SCH (08:25)
[2017-11-05] MEDS: PANTOPRAZOLE 40 MG TABLET PO SCH ×2 (08:25→18:05)
[2017-11-05] MEDS: ALLOPURINOL 100 MG TAB PO SCH ×2 (08:25→20:15)
[2017-11-05] MEDS: CARVEDILOL 3.125 MG TAB PO SCH ×2 (08:25→18:05)
[2017-11-05] MEDS: FUROSEMIDE 10 MG/ML 2 ML VIAL IV SCH (09:45)
--- NOTE | 2017-11-05 11:51 | CDI ---
Last Revision, September 2017 Documentation Clarification Form Date: 11/05/2017 11:40:00 AM From: Heena Sol RN, CCDS Admit Date: 11/05/2017 7:48:00 AM Patient Name: Libertad Callaway Visit Number: [id number] ATTENTION: The Clinical Documentation Specialists (CDI) and [facility] Coding Staff appreciate your assistance in clarifying documentation. Please respond to the clarification below the line at the bottom and electronically sign. The CDI & [facility] Coding staff will review the response and follow-up if needed. Please note: Queries are made part of the Legal Health Record. If you have any questions, please contact the author of this message via ITS. Dr. Jackie Lopez diagnosis of anemia lacks specificity to accurately reflect your patients severity of condition and clarification is needed. History/Risk Factors: CAD, CHF, GI Bleed, HTN, PE, KARLA, Hypothyroid, Diverticulosis, Anemia, AVR, PPM Clinical indicators: Hemoglobin: 8.8/7.7/6.9 Hematocrit: 33.3/29.2/26.1 Treatment: 1 Unit PC TX Labs Q 12 hrs In order to capture the severity of condition, please clarify the type of anemia and etiology if known: Acute blood loss anemia Acute on chronic blood loss anemia Chronic blood loss anemia Iron deficiency anemia Hemolytic anemia Drug induced anemia Anemia due to malignancy Nutritional anemia Anemia of chronic kidney disease Anemia of chronic disease Unable to determine Other, please specify Please continue to document in your progress notes and discharge summary in order to capture severity of illness and risk of mortality. Include clinical findings that support your diagnosis. Unable to determine MTDD
[2017-11-05 12:08] LABS: Glucose,Whole Blood 165 mg/dL (75-99)
--- NOTE | 2017-11-05 12:08 | P.PN ---
Subjective Progress Note Date: 11/05/17 Principal diagnosis: Shortness of breath/anemia This is a pleasant 87-year-old female patient with a known history of coronary artery disease and prior CABG, sick sinus syndrome and status post pacemaker, aortic valve replacement using bioprosthetic valve, chronic atrial fibrillation not on anticoagulation in view of history of bleeding, was admitted to the hospital with shortness of breath. The patient does follow was Dr. Daigle in the office as an outpatient. She was found to be severely anemic and she is receiving blood at this point. She is getting workup for the anemia. Clinically she denies having any chest pain or discomfort but she continues to have exertional dyspnea seems to be unchanged compared to before. No dizziness or lightheadedness. No syncope. Overall she feels tired and fatigued. Objective - Vital Signs Vital signs: Vital Signs Temp 98.1 F 11/05/17 11:34 Pulse 72 11/05/17 11:34 Resp 16 11/05/17 11:34 BP 125/59 11/05/17 11:34 Pulse Ox 97 11/05/17 11:34 Intake & Output 11/04/17 11/05/17 11/05/17 18:59 06:59 18:59 Intake Total 920 0 Output Total 575 400 Balance 345 -400 0 Weight 83 kg 84.3 kg Intake: Oral 920 Blood Product 0 Rc As-1 Unit 0 [id number] Output: Urine 575 400 Other: Voiding Method Toilet Toilet Toilet - Constitutional General appearance: Present: no acute distress - Respiratory Respiratory: bilateral: CTA - Cardiovascular Heart sounds: normal: S1, S2 Abnormal Heart Sounds: Present: systolic murmur - Labs CBC & Chem 7: 11/05/17 06:33 11/05/17 06:33 Labs: Abnormal Lab Results - Last 24 Hours (Table) 11/04/17 11/04/17 11/04/17 Range/Units 12:01 17:02 18:12 RBC (3.80-5.40) m/uL Hgb 7.7 L (11.4-16.0) gm/dL Hct 29.2 L (34.0-46.0) % MCV 72.0 L (80.0-100.0) fL MCH 19.1 L (25.0-35.0) pg MCHC 26.5 L (31.0-37.0) g/dL RDW 18.2 H (11.5-15.5) % Chloride (98-107) mmol/L BUN (7-17) mg/dL Creatinine (0.52-1.04) mg/dL Glucose (74-99) mg/dL POC Glucose (mg/dL) 243 H 177 H (75-99) mg/dL Crossmatch 11/04/17 11/05/17 11/05/17 Range/Units 20:42 06:33 06:33 RBC 3.68 L (3.80-5.40) m/uL Hgb 6.9 L* (11.4-16.0) gm/dL Hct 26.1 L (34.0-46.0) % MCV 71.0 L (80.0-100.0) fL MCH 18.8 L (25.0-35.0) pg MCHC 26.5 L (31.0-37.0) g/dL RDW 19.4 H (11.5-15.5) % Chloride 108 H (98-107) mmol/L BUN 25 H (7-17) mg/dL Creatinine 1.47 H (0.52-1.04) mg/dL Glucose 123 H (74-99) mg/dL POC Glucose (mg/dL) 134 H (75-99) mg/dL Crossmatch 11/05/17 Range/Units 08:25 RBC (3.80-5.40) m/uL Hgb (11.4-16.0) gm/dL Hct (34.0-46.0) % MCV (80.0-100.0) fL MCH (25.0-35.0) pg MCHC (31.0-37.0) g/dL RDW (11.5-15.5) % Chloride (98-107) mmol/L BUN (7-17) mg/dL Creatinine (0.52-1.04) mg/dL Glucose (74-99) mg/dL POC Glucose (mg/dL) (75-99) mg/dL Crossmatch See Detail Assessment and Plan Assessment: Assessment #1 severe anemia of unknown etiology at this point #2 known CAD and status post CABG #3 status post aortic valve replacement #4 chronic atrial fibrillation #5 multiple comorbid conditions Plan #1 continue the current medical treatment #2 continue monitor the hemoglobin and the patient is receiving the blood #3 from the cardiac standpoint of view she denies having any chest pain or discomfort at this point.
--- NOTE | 2017-11-05 12:08 | CDI ---
Last Revision, September 2017 Documentation Clarification Form Date: 11/05/2017 11:52:00 AM From: Heena Sol RN, CCDS Admit Date: 11/05/2017 7:48:00 AM Patient Name: Libertad Callaway Visit Number: [id number] ATTENTION: The Clinical Documentation Specialists (CDI) and [facility] Coding Staff appreciate your assistance in clarifying documentation. Please respond to the clarification below the line at the bottom and electronically sign. The CDI & [facility] Coding staff will review the response and follow-up if needed. Please note: Queries are made part of the Legal Health Record. If you have any questions, please contact the author of this message via ITS. Dr. Mejia History/Risk Factors: CHF, acute kidney disease, ARF, diverticulosis Clinical Indicators: Current BUN: 23/25 CR: 1.31/1.5/1.47 GFR: 38/33/34 10/06/17 Patients Baseline: BUN/CR/GFR: Treatment: Patients medications include: IVF: none In order to capture the severity of condition, please clarify if the condition signifies: CKD Stage 1 (GFR > 90) CKD Stage 2 (GFR 60-89) CKD Stage 3 (GFR 30-59) CKD Stage 4 (GFR 15-29) CKD Stage 5 (GFR <15) ESRD Other, please specify Unable to determine Please continue to document in your progress notes and discharge summary in order to capture severity of illness and risk of mortality. Include clinical findings that support your diagnosis. CKD Stage 3 (GFR 30-59) MTDD
[2017-11-05] MEDS: CYANOCOBALAMIN 500 MCG TAB PO SCH (13:20)
[2017-11-05] MEDS: CHOLECALCIFEROL 1,000 UNIT TAB PO SCH (13:20)
[2017-11-05 14:39] LABS: Anisocytosis Slight; Basophils # (A) 0.1 k/uL (0-0.2); Basophils % (A) 1 %; Eosinophils # (A) 0.4 k/uL (0-0.7); Eosinophils % (A) 4 %; HCT 31.3 % (34.0-46.0); Hypochromasia Marked; Lymphocytes # (A) 1.5 k/uL (1.0-4.8); Lymphocytes % (A) 16 %; MCHC 27.1 g/dL (31.0-37.0); MCV 73.9 fL (80.0-100.0); Microcytosis Moderate; Monocytes # (A) 0.6 k/uL (0-1.0); Monocytes % (A) 6 %; Neutrophils # (A) 6.8 k/uL (1.3-7.7); Neutrophils % (A) 71 %; Platelet Count 183 k/uL (150-450); Poikilocytosis Moderate; RBC 4.24 m/uL (3.80-5.40); RDW 19.2 % (11.5-15.5); WBC 9.5 k/uL (3.8-10.6)
[2017-11-05 14:43] LABS: HGB 8.5 gm/dL (11.4-16.0)
[2017-11-05] MEDS: ALBUTEROL NEBULIZED 2.5 MG/3 ML INHALATION PRN ×2 (14:53→19:44)
--- NOTE | 2017-11-05 17:18 | P.PN ---
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 Patient dementia of breath Constitutional: Denied any fatigue denied any fever. Cardio vascular: denied any chest pain, palpitations Gastrointestinal denied any nausea vomiting Pulmonary: As mentioned in HPI Neurologic denied any new focal deficits Objective - Vital Signs Vital signs: Vital Signs Temp 98 F 11/05/17 16:00 Pulse 72 11/05/17 16:00 Resp 16 11/05/17 16:00 BP 129/65 11/05/17 16:00 Pulse Ox 98 11/05/17 16:00 Intake & Output 11/04/17 11/05/17 11/05/17 18:59 06:59 18:59 Intake Total 920 310 Output Total 575 400 Balance 345 -400 310 Weight 83 kg 84.3 kg Intake: Oral 920 Blood Product 310 Rc As-1 Unit 310 [id number] Output: Urine 575 400 Other: Voiding Method Toilet Toilet Toilet - Exam PHYSICAL EXAMINATION: GENERAL: The patient is alert and oriented x3, not in any acute distress. Well developed, well nourished. HEENT: Pupils are round and equally reacting to light. EOMI. No scleral icterus. No conjunctival pallor. Normocephalic, atraumatic. No pharyngeal erythema. No thyromegaly. CARDIOVASCULAR: S1 and S2 present. Patient appears to have elevated JVD is low PULMONARY: Good air entry into bilateral lung nicolas significant expiratory wheezing was appreciated ABDOMEN: Soft, nontender, nondistended, normoactive bowel sounds. No palpable organomegaly. MUSCULOSKELETAL: No joint swelling or deformity. EXTREMITIES: No cyanosis, clubbing, or pedal edema. NEUROLOGICAL: Gross neurological examination did not reveal any focal deficits. SKIN: No rashes. - Labs CBC & Chem 7: 11/05/17 14:20 11/05/17 06:33 Labs: Abnormal Lab Results - Last 24 Hours (Table) 11/04/17 11/04/17 11/05/17 Range/Units 18:12 20:42 06:33 RBC 3.68 L (3.80-5.40) m/uL Hgb 7.7 L 6.9 L* (11.4-16.0) gm/dL Hct 29.2 L 26.1 L (34.0-46.0) % MCV 72.0 L 71.0 L (80.0-100.0) fL MCH 19.1 L 18.8 L (25.0-35.0) pg MCHC 26.5 L 26.5 L (31.0-37.0) g/dL RDW 18.2 H 19.4 H (11.5-15.5) % Chloride (98-107) mmol/L BUN (7-17) mg/dL Creatinine (0.52-1.04) mg/dL Glucose (74-99) mg/dL POC Glucose (mg/dL) 134 H (75-99) mg/dL Crossmatch 11/05/17 11/05/17 11/05/17 Range/Units 06:33 08:25 12:05 RBC (3.80-5.40) m/uL Hgb (11.4-16.0) gm/dL Hct (34.0-46.0) % MCV (80.0-100.0) fL MCH (25.0-35.0) pg MCHC (31.0-37.0) g/dL RDW (11.5-15.5) % Chloride 108 H (98-107) mmol/L BUN 25 H (7-17) mg/dL Creatinine 1.47 H (0.52-1.04) mg/dL Glucose 123 H (74-99) mg/dL POC Glucose (mg/dL) 165 H (75-99) mg/dL Crossmatch See Detail 11/05/17 Range/Units 14:20 RBC (3.80-5.40) m/uL Hgb 8.5 L D (11.4-16.0) gm/dL Hct 31.3 L (34.0-46.0) % MCV 73.9 L (80.0-100.0) fL MCH 20.0 L (25.0-35.0) pg MCHC 27.1 L (31.0-37.0) g/dL RDW 19.2 H (11.5-15.5) % Chloride (98-107) mmol/L BUN (7-17) mg/dL Creatinine (0.52-1.04) mg/dL Glucose (74-99) mg/dL POC Glucose (mg/dL) (75-99) mg/dL Crossmatch Assessment and Plan Plan: -Congestive heart failure chronic vessel dysfunction with acute exacerbation IV Lasix management as mentioned above -Anemia contributing to shortness of breath received 2 units of blood transfusion -Elevated troponin secondary to heart failure and type II non-ST elevation microinfarction secondary to anemia -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 fib rate controlled at this time -History of mitral valve replacement with bioprosthetic valve
[2017-11-05 17:20] LABS: Glucose,Whole Blood 189 mg/dL (75-99)
--- NOTE | 2017-11-05 19:13 | XR ---
EXAMINATION TYPE: XR chest 2V DATE OF EXAM: 11/05/2017 COMPARISON: 11/03/2017 HISTORY: Short of breath TECHNIQUE: Frontal and lateral views of the chest are obtained. FINDINGS: Heart is enlarged. There is mild pulmonary congestion. There is slight coarsening of inter stitial markings. There is slight blunting of the costophrenic angles. There are sternal wires. Thora cic aorta is atheromatous. There is left axillary pacemaker with the lead tips in the right ventricle . IMPRESSION: I think there is new mild heart failure compared to last recent exam. Pulmonary fibrosis .
[2017-11-05] MEDS: SYMBICORT 160-4.5 MCG INHALER INHALATION SCH (19:44)
[2017-11-05] MEDS: FUROSEMIDE 10 MG/ML 10 ML VIAL IV SCH (20:15)
[2017-11-05] MEDS: MELATONIN 5 MG TABLET PO SCH (20:15)
[2017-11-05] MEDS: LATANOPROST 0.005% OPHTH DROPS 2.5 ML BTL RIGHT EYE SCH (20:16)
[2017-11-05 21:03] LABS: Glucose,Whole Blood 187 mg/dL (75-99)
[2017-11-05] MEDS: INSULIN DETEMIR 100 UNIT/ML 10 ML VIAL SQ SCH (21:42)
[2017-11-06 06:02] LABS: Glucose,Whole Blood 75 mg/dL (75-99)
[2017-11-06] MEDS: INSULIN ASPART 100 UNIT/ML 1 ML 10 ML VIAL SQ SCH ×4 (06:04→21:27)
[2017-11-06] MEDS: LEVOTHYROXINE 75 MCG TAB PO SCH (06:37)
[2017-11-06] MEDS: CARVEDILOL 3.125 MG TAB PO SCH ×2 (06:37→17:14)
[2017-11-06] MEDS: PANTOPRAZOLE 40 MG TABLET PO SCH ×2 (06:37→17:16)
[2017-11-06] MEDS: Acetaminophen-Codeine 300-30mg TAB PO PRN ×3 (06:45→17:35)
[2017-11-06 07:06] LABS: Anisocytosis Slight; Basophils # (A) 0.1 k/uL (0-0.2); Basophils % (A) 1 %; Eosinophils # (A) 0.6 k/uL (0-0.7); Eosinophils % (A) 6 %; HCT 30.6 % (34.0-46.0); HGB 8.8 gm/dL (11.4-16.0); Hypochromasia Marked; Lymphocytes # (A) 1.6 k/uL (1.0-4.8); Lymphocytes % (A) 16 %; MCH 20.6 pg (25.0-35.0); MCHC 28.8 g/dL (31.0-37.0); MCV 71.4 fL (80.0-100.0); Mean Platelet Volume 9.6; Microcytosis Marked; Monocytes # (A) 0.7 k/uL (0-1.0); Monocytes % (A) 7 %; Neutrophils # (A) 6.8 k/uL (1.3-7.7); Neutrophils % (A) 69 %; Platelet Count 185 k/uL (150-450); Poikilocytosis Moderate; RBC 4.29 m/uL (3.80-5.40); RDW 19.8 % (11.5-15.5); WBC 9.9 k/uL (3.8-10.6)
[2017-11-06 07:13] LABS: Calcium 9.5 mg/dL (8.4-10.2); Potassium 3.7 mmol/L (3.5-5.1)
[2017-11-06] MEDS: ALLOPURINOL 100 MG TAB PO SCH ×2 (08:42→19:50)
[2017-11-06] MEDS: FUROSEMIDE 10 MG/ML 10 ML VIAL IV SCH ×2 (08:42→19:50)
[2017-11-06] MEDS: SPIRONOLACTONE 25 MG TAB PO SCH (08:43)
[2017-11-06] MEDS: ISOSORBIDE MONONITRATE ER 30 MG TAB.ER.24H PO SCH (08:43)
[2017-11-06 08:49] LABS: Glucose,Whole Blood 166 mg/dL (75-99)
[2017-11-06] MEDS: SYMBICORT 160-4.5 MCG INHALER INHALATION SCH ×2 (09:15→20:50)
[2017-11-06 11:40] LABS: Glucose,Whole Blood 184 mg/dL (75-99)
--- NOTE | 2017-11-06 13:00 | ECHOF ---
Referral Reason:sob MEASUREMENTS -------- HEIGHT: 162.6 cm WEIGHT: 83.9 kg BP: 116/58 IVSd: 1.5 cm (0.6 - 1.1) LVIDd: 4.2 cm (3.9 - 5.3) LVPWd: 1.7 cm (0.6 - 1.1) IVSs: 2.3 cm LVIDs: 1.6 cm LVPWs: 2.1 cm LAESV Index (A-L): 94.72 ml/m Ao Diam: 2.6 cm (2.0 - 3.7) AV Cusp: 1.1 cm (1.5 - 2.6) LA Diam: 5.1 cm (2.7 - 3.8) MV EXCURSION: 11.353 mm (> 18.000) MV EF SLOPE: 39 mm/s (70 - 150) EPSS: 0.2 cm MV E Hardik: 1.79 m/s MV DecT: 339 ms MV A Hardik: 0.50 m/s MV E/A Ratio: 3.55 AV maxP.52 mmHg AV meanP.20 mmHg AR PHT: 186 ms RAP: 15.00 mmHg RVSP: 69.20 mmHg FINDINGS -------- Pacemaker This was a technically good study. The left ventricular size is normal. There is severe concentric left ventricular hypertrophy. Ove rall left ventricular systolic function is normal with, an EF between 55 - 60 %. Possible LVOT Obst ruction with a max gradient of 26mmHg. The right ventricle is normal in size and function. LA is severely dilated >40 ml/m2 The right atrium is normal in size. Aortic valve is trileaflet and is severely thickened. Trace amount of aortic regurgitation. Ther e is moderate aortic stenosis present. Peak/mean gradient across the Aortic Valve is 60.52mmHg / 30 .20mmHg. Normally functioning bioprosthetic valve. The mitral valve leaflets are moderately thickened. Moderate mitral annular calcification present. Severe mitral regurgitation is present. The peak and mean MV gradients are 26.31mmHg 6.46mmHg as measured by doppler. Moderate mitral stenosis. Moderate to severe tricuspid regurgitation present. There is moderate to severe pulmonary hypertens ion. The right ventricular systolic pressure, as measured by Doppler, is 69.20mmHg. Trace/mild (physiologic) pulmonic regurgitation. The aortic root size is normal. The inferior vena cava is mildly dilated. The pericardium is normal. CONCLUSIONS -------- 1. Pacemaker 2. This was a technically good study. 3. The left ventricular size is normal. 4. There is severe concentric left ventricular hypertrophy. 5. Overall left ventricular systolic function is normal with, an EF between 55 - 60 %. 6. Possible LVOT Obstruction with a max gradient of 26mmHg 7. The right ventricle is normal in size and function. 8. LA is severely dilated >40 ml/m2 9. The right atrium is normal in size. 10. Aortic valve is trileaflet and is severely thickened. 11. Trace amount of aortic regurgitation. 12. There is moderate aortic stenosis present. 13. Peak/mean gradient across the Aortic Valve is 60.52mmHg / 30.20mmHg. 14. Normally functioning bioprosthetic valve. 15. The mitral valve leaflets are moderately thickened. 16. Moderate mitral annular calcification present. 17. Severe mitral regurgitation is present. 18. The peak and mean MV gradients are 26.31mmHg 6.46mmHg as measured by doppler. 19. Moderate mitral stenosis. 20. Moderate to severe tricuspid regurgitation present. 21. There is moderate to severe pulmonary hypertension. 22. The right ventricular systolic pressure, as measured by Doppler, is 69.20mmHg. 23. Trace/mild (physiologic) pulmonic regurgitation. 24. The aortic root size is normal. 25. The inferior vena cava is mildly dilated. 26. The pericardium is normal. [employer] OPERATOR: Maria G Farmer RDCS
--- NOTE | 2017-11-06 14:53 | P.PN ---
Subjective Progress Note Date: 11/06/17 Mrs. Callaway is a pleasant 87-year-old past medical history significant for coronary artery disease with subsequent single vessel bypass grafting, dual chamber pacemaker for sick sinus syndrome and complete heart block, bioprosthetic aortic valve replacement, chronic persistent atrial fibrillation not on group home anticoagulation secondary to chronic anemia, COPD , hypertension, dyslipidemia, diastolic heart failure and diabetes mellitus. She follows with Dr. Daigle in the office. We have been asked to see her in consultation for evidence of possible heart failure. She states she was trying to get up out of bed yesterday when she became mildly dizzy and fell out of bed onto her left side. She denies symptoms of chest pain, shortness of breath, dizziness, palpitations, diaphoresis, nausea or vomiting. EKG on arrival reveals atrial fibrillation with controlled ventricular response with underlying right bundle branch block. This is consistent with old EKG's. Patient was found to be severely anemic, status post blood transfusion. 11/06/2017 Patient was seen and examined this morning, states overall that her breathing is improved today. Complaining of mild dizziness and feeling tired today. Blood pressure 120/60 with a heart rate in the 60s. White blood cell count 9.9 , hemoglobin 8.8, potassium 3.7, BUN 25, creatinine 1.2. Objective - Vital Signs Vital signs: Vital Signs Temp 96.9 F L 11/06/17 08:00 Pulse 68 11/06/17 08:00 Resp 18 11/06/17 04:00 BP 120/59 11/06/17 08:00 Pulse Ox 90 L 11/06/17 08:00 Intake & Output 11/05/17 11/06/17 11/06/17 18:59 06:59 18:59 Intake Total 310 600 420 Output Total 350 600 Balance -40 0 420 Weight 84.3 kg Intake: Oral 600 420 Blood Product 310 Rc As-1 Unit 310 [id number] Output: Urine 350 600 Other: Voiding Method Toilet - Exam PHYSICAL EXAMINATION: HEENT: Head is atraumatic, normocephalic. Pupils equal, round. Neck is supple. There is no elevated jugular venous pressure. HEART EXAMINATION: Heart S1 and S2 with systolic murmur is heard CHEST EXAMINATION: Lungs are clear with diminished air entry to bilateral bases ABDOMEN: Soft, nontender. Bowel sounds are heard. No organomegaly noted. EXTREMITIES: 2+ peripheral pulses with no evidence of peripheral edema and no calf tenderness noted. NEUROLOGIC patient is awake, alert and oriented -3. . - Labs CBC & Chem 7: 11/06/17 06:30 11/06/17 06:30 Labs: Abnormal Lab Results - Last 24 Hours (Table) 11/05/17 11/05/17 11/05/17 Range/Units 14:20 17:18 21:00 Hgb 8.5 L D (11.4-16.0) gm/dL Hct 31.3 L (34.0-46.0) % MCV 73.9 L (80.0-100.0) fL MCH 20.0 L (25.0-35.0) pg MCHC 27.1 L (31.0-37.0) g/dL RDW 19.2 H (11.5-15.5) % BUN (7-17) mg/dL Creatinine (0.52-1.04) mg/dL Glucose (74-99) mg/dL POC Glucose (mg/dL) 189 H 187 H (75-99) mg/dL 11/06/17 11/06/17 11/06/17 Range/Units 06:30 06:30 08:47 Hgb 8.8 L (11.4-16.0) gm/dL Hct 30.6 L (34.0-46.0) % MCV 71.4 L (80.0-100.0) fL MCH 20.6 L (25.0-35.0) pg MCHC 28.8 L (31.0-37.0) g/dL RDW 19.8 H (11.5-15.5) % BUN 25 H (7-17) mg/dL Creatinine 1.27 H (0.52-1.04) mg/dL Glucose 69 L (74-99) mg/dL POC Glucose (mg/dL) 166 H (75-99) mg/dL 11/06/17 Range/Units 11:38 Hgb (11.4-16.0) gm/dL Hct (34.0-46.0) % MCV (80.0-100.0) fL MCH (25.0-35.0) pg MCHC (31.0-37.0) g/dL RDW (11.5-15.5) % BUN (7-17) mg/dL Creatinine (0.52-1.04) mg/dL Glucose (74-99) mg/dL POC Glucose (mg/dL) 184 H (75-99) mg/dL Assessment and Plan Plan: Assessment and plan #1 anemia, requiring blood transfusion #2 chronic kidney disease stage II #3 sleep apnea #4 history of PE #5 chronic persistent atrial fibrillation #6 known history of coronary artery disease with prior bypass surgery #7Bioprosthetic aortic valve #8 prior pacemaker implantation #9 diabetes #10 hyperlipidemia Plan From cardiology's perspective, we'll recommend to continue the patient on her current medications. Continue IV Lasix for 24 hours, check lytes BUN and creatinine, daily weights, intake and output. DNP note has been reviewed, I agree with a documented findings and plan of care. Patient was seen and examined.
--- NOTE | 2017-11-06 15:48 | P.PN ---
Subjective Progress Note Date: 11/06/17 Progress note being dictated for Dr. Mejia. 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 Patient dementia of breath Constitutional: Denied any fatigue denied any fever. Cardio vascular: denied any chest pain, palpitations Gastrointestinal denied any nausea vomiting Pulmonary: As mentioned in HPI Neurologic denied any new focal deficits 11/06/17 status post 1 unit of packed RBCs yesterday, hemoglobin currently 8.8. Breathing significantly improved. Complaining of headache, dizziness which patient states is chronic, and feeling more tired today. Afebrile, normal WBC. Diuresing well on Lasix IV push. Renal function improving. Objective - Vital Signs Vital signs: Vital Signs Temp 96.9 F L 11/06/17 08:00 Pulse 68 11/06/17 08:00 Resp 18 11/06/17 04:00 BP 120/59 11/06/17 08:00 Pulse Ox 90 L 11/06/17 08:00 Intake & Output 11/05/17 11/06/17 11/06/17 18:59 06:59 18:59 Intake Total 310 600 420 Output Total 350 600 Balance -40 0 420 Weight 84.3 kg Intake: Oral 600 420 Blood Product 310 Rc As-1 Unit 310 [id number] Output: Urine 350 600 Other: Voiding Method Toilet - Exam GENERAL: The patient is alert and oriented x3, not in any acute distress. Well developed, well nourished. HEENT: Pupils are round and equally reacting to light. EOMI. No scleral icterus. No conjunctival pallor. Normocephalic, atraumatic. No pharyngeal erythema. No thyromegaly. CARDIOVASCULAR: S1 and S2 present. Positive systolic murmur .No JVD. PULMONARY: Good air entry into bilateral lung nicolas significant expiratory wheezing was appreciated ABDOMEN: Soft, nontender, nondistended, normoactive bowel sounds. No palpable organomegaly. MUSCULOSKELETAL: No joint swelling or deformity. EXTREMITIES: No cyanosis, clubbing, or pedal edema. NEUROLOGICAL: Gross neurological examination did not reveal any focal deficits. SKIN: No rashes. - Labs CBC & Chem 7: 11/06/17 06:30 11/06/17 06:30 Labs: Abnormal Lab Results - Last 24 Hours (Table) 11/05/17 11/05/17 11/06/17 Range/Units 17:18 21:00 06:30 Hgb 8.8 L (11.4-16.0) gm/dL Hct 30.6 L (34.0-46.0) % MCV 71.4 L (80.0-100.0) fL MCH 20.6 L (25.0-35.0) pg MCHC 28.8 L (31.0-37.0) g/dL RDW 19.8 H (11.5-15.5) % BUN (7-17) mg/dL Creatinine (0.52-1.04) mg/dL Glucose (74-99) mg/dL POC Glucose (mg/dL) 189 H 187 H (75-99) mg/dL 11/06/17 11/06/17 11/06/17 Range/Units 06:30 08:47 11:38 Hgb (11.4-16.0) gm/dL Hct (34.0-46.0) % MCV (80.0-100.0) fL MCH (25.0-35.0) pg MCHC (31.0-37.0) g/dL RDW (11.5-15.5) % BUN 25 H (7-17) mg/dL Creatinine 1.27 H (0.52-1.04) mg/dL Glucose 69 L (74-99) mg/dL POC Glucose (mg/dL) 166 H 184 H (75-99) mg/dL Assessment and Plan Assessment: -Congestive heart failure chronic vessel dysfunction with acute exacerbation IV Lasix management as mentioned above -Anemia contributing to shortness of breath received 2 units of blood transfusion -Elevated troponin secondary to heart failure and type II non-ST elevation microinfarction secondary to anemia -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 fib rate controlled at this time -History of mitral valve replacement with bioprosthetic valve Plan: Continue current medication regime ,Lasix,monitoring and symptomatic treatment. Orthostatic vitals every shift. Close monitoring of renal function , electrolytes, hgb with repeat labs ordered for a.m. Significant clinical improvement, discharge planning in progress for tomorrow pending cardiology clearance. The impression and plan of care has been dictated as directed. : I performed a history and examination of this patient, discussed the same with the dictator. I agree with the dictator's note ,documented as a scribe. Any additional findings or plans will be noted.
[2017-11-06 16:55] LABS: Glucose,Whole Blood 170 mg/dL (75-99)
[2017-11-06] MEDS: CYANOCOBALAMIN 500 MCG TAB PO SCH (17:14)
[2017-11-06] MEDS: CHOLECALCIFEROL 1,000 UNIT TAB PO SCH (17:14)
[2017-11-06] MEDS: INSULIN DETEMIR 100 UNIT/ML 10 ML VIAL SQ SCH (18:19)
[2017-11-06] MEDS: MELATONIN 5 MG TABLET PO SCH (19:51)
[2017-11-06] MEDS: LATANOPROST 0.005% OPHTH DROPS 2.5 ML BTL RIGHT EYE SCH (19:51)
[2017-11-06 21:48] LABS: Glucose,Whole Blood 159 mg/dL (75-99)
[2017-11-07 05:58] LABS: Anisocytosis Moderate; Basophils # (A) 0.1 k/uL (0-0.2); Basophils % (A) 1 %; Eosinophils # (A) 0.2 k/uL (0-0.7); Eosinophils % (A) 2 %; HCT 32.2 % (34.0-46.0); HGB 8.8 gm/dL (11.4-16.0); Hypochromasia Marked; Lymphocytes # (A) 1.2 k/uL (1.0-4.8); Lymphocytes % (A) 11 %; MCH 19.6 pg (25.0-35.0); MCHC 27.2 g/dL (31.0-37.0); MCV 71.8 fL (80.0-100.0); Mean Platelet Volume 8.4; Microcytosis Marked; Monocytes # (A) 0.6 k/uL (0-1.0); Monocytes % (A) 5 %; Neutrophils # (A) 8.9 k/uL (1.3-7.7); Neutrophils % (A) 80 %; Platelet Count 200 k/uL (150-450); Poikilocytosis Moderate; RBC 4.48 m/uL (3.80-5.40); RDW 20.7 % (11.5-15.5); WBC 11.2 k/uL (3.8-10.6)
[2017-11-07 06:11] LABS: Calcium 9.7 mg/dL (8.4-10.2); Magnesium 1.8 mg/dL (1.6-2.3); Potassium 3.2 mmol/L (3.5-5.1)
[2017-11-07 06:25] LABS: Glucose,Whole Blood 57 mg/dL (75-99)
[2017-11-07] MEDS: CARVEDILOL 3.125 MG TAB PO SCH ×2 (06:26→17:06)
[2017-11-07] MEDS: INSULIN ASPART 100 UNIT/ML 1 ML 10 ML VIAL SQ SCH ×4 (06:26→21:09)
[2017-11-07] MEDS: LEVOTHYROXINE 75 MCG TAB PO SCH (06:26)
[2017-11-07] MEDS: PANTOPRAZOLE 40 MG TABLET PO SCH ×2 (06:26→17:06)
[2017-11-07 07:04] LABS: Glucose,Whole Blood 56 mg/dL (75-99)
[2017-11-07 07:09] LABS: Glucose,Whole Blood 84 mg/dL (75-99)
[2017-11-07] MEDS: SYMBICORT 160-4.5 MCG INHALER INHALATION SCH ×2 (09:19→19:10)
[2017-11-07] MEDS: ALLOPURINOL 100 MG TAB PO SCH ×2 (09:34→19:50)
[2017-11-07] MEDS: ISOSORBIDE MONONITRATE ER 30 MG TAB.ER.24H PO SCH (09:34)
[2017-11-07] MEDS: SPIRONOLACTONE 25 MG TAB PO SCH (09:34)
[2017-11-07] MEDS: ACETAMINOPHEN TAB 325 MG TAB PO PRN (09:35)
[2017-11-07] MEDS: FUROSEMIDE 10 MG/ML 10 ML VIAL IV SCH (09:35)
[2017-11-07 09:45] LABS: Glucose,Whole Blood 128 mg/dL (75-99)
[2017-11-07 11:55] LABS: Glucose,Whole Blood 146 mg/dL (75-99)
--- NOTE | 2017-11-07 12:05 | P.PN ---
Subjective Progress Note Date: 11/07/17 Mrs. Callaway is a pleasant 87-year-old past medical history significant for coronary artery disease with subsequent single vessel bypass grafting, dual chamber pacemaker for sick sinus syndrome and complete heart block, bioprosthetic aortic valve replacement, chronic persistent atrial fibrillation not on fdc anticoagulation secondary to chronic anemia, COPD , hypertension, dyslipidemia, diastolic heart failure and diabetes mellitus. She follows with Dr. Daigle in the office. We have been asked to see her in consultation for evidence of possible heart failure. She states she was trying to get up out of bed yesterday when she became mildly dizzy and fell out of bed onto her left side. She denies symptoms of chest pain, shortness of breath, dizziness, palpitations, diaphoresis, nausea or vomiting. EKG on arrival reveals atrial fibrillation with controlled ventricular response with underlying right bundle branch block. This is consistent with old EKG's. Patient was found to be severely anemic, status post blood transfusion. 11/06/2017 Patient was seen and examined this morning, states overall that her breathing is improved today. Complaining of mild dizziness and feeling tired today. Blood pressure 120/60 with a heart rate in the 60s. White blood cell count 9.9 , hemoglobin 8.8, potassium 3.7, BUN 25, creatinine 1.2. 11/07/2017 Patient seen and examined this morning, denies any shortness of breath. LV function is normal. Her main complaint is that of headache. She also had a low blood sugar in the 30s this morning. She also complains that when she sits up she is dizzy, patient has been experiencing dizziness and headache for several years , we will check orthostatics. Blood pressure this morning 138/ 80 with a heart rate in the 70s. Objective - Vital Signs Vital signs: Vital Signs Temp 98.1 F 11/07/17 04:00 Pulse 71 11/07/17 08:00 Resp 14 11/07/17 08:00 BP 138/80 11/07/17 08:00 Pulse Ox 93 L 11/07/17 08:00 Intake & Output 11/06/17 11/07/17 11/07/17 18:59 06:59 18:59 Intake Total 600 120 Output Total 800 Balance 600 -680 Weight 84.4 kg Intake: Oral 600 120 Output: Urine 800 Other: Voiding Method Toilet Toilet - Exam PHYSICAL EXAMINATION: HEENT: Head is atraumatic, normocephalic. Pupils equal, round. Neck is supple. There is no elevated jugular venous pressure. HEART EXAMINATION: Heart S1 and S2 with systolic murmur is heard CHEST EXAMINATION: Lungs are clear with diminished air entry to bilateral bases ABDOMEN: Soft, nontender. Bowel sounds are heard. No organomegaly noted. EXTREMITIES: 2+ peripheral pulses with no evidence of peripheral edema and no calf tenderness noted. NEUROLOGIC patient is awake, alert and oriented -3. . - Labs CBC & Chem 7: 11/07/17 05:29 11/07/17 05:29 Labs: Abnormal Lab Results - Last 24 Hours (Table) 11/06/17 11/06/17 11/07/17 Range/Units 16:54 21:12 05:29 WBC 11.2 H (3.8-10.6) k/uL Hgb 8.8 L (11.4-16.0) gm/dL Hct 32.2 L (34.0-46.0) % MCV 71.8 L (80.0-100.0) fL MCH 19.6 L (25.0-35.0) pg MCHC 27.2 L (31.0-37.0) g/dL RDW 20.7 H (11.5-15.5) % Neutrophils # 8.9 H (1.3-7.7) k/uL Potassium (3.5-5.1) mmol/L BUN (7-17) mg/dL Creatinine (0.52-1.04) mg/dL Glucose (74-99) mg/dL POC Glucose (mg/dL) 170 H 159 H (75-99) mg/dL 11/07/17 11/07/17 11/07/17 Range/Units 05:29 06:23 06:39 WBC (3.8-10.6) k/uL Hgb (11.4-16.0) gm/dL Hct (34.0-46.0) % MCV (80.0-100.0) fL MCH (25.0-35.0) pg MCHC (31.0-37.0) g/dL RDW (11.5-15.5) % Neutrophils # (1.3-7.7) k/uL Potassium 3.2 L (3.5-5.1) mmol/L BUN 23 H (7-17) mg/dL Creatinine 1.21 H (0.52-1.04) mg/dL Glucose 38 L* (74-99) mg/dL POC Glucose (mg/dL) 57 L 56 L (75-99) mg/dL 11/07/17 11/07/17 Range/Units 09:41 11:34 WBC (3.8-10.6) k/uL Hgb (11.4-16.0) gm/dL Hct (34.0-46.0) % MCV (80.0-100.0) fL MCH (25.0-35.0) pg MCHC (31.0-37.0) g/dL RDW (11.5-15.5) % Neutrophils # (1.3-7.7) k/uL Potassium (3.5-5.1) mmol/L BUN (7-17) mg/dL Creatinine (0.52-1.04) mg/dL Glucose (74-99) mg/dL POC Glucose (mg/dL) 128 H 146 H (75-99) mg/dL Assessment and Plan Plan: Assessment and plan #1 anemia, requiring blood transfusion #2 chronic kidney disease stage II #3 sleep apnea #4 history of PE #5 chronic persistent atrial fibrillation #6 known history of coronary artery disease with prior bypass surgery #7Bioprosthetic aortic valve #8 prior pacemaker implantation #9 diabetes #10 hyperlipidemia Plan From cardiology's perspective, we'll discontinue the IV Lasix. Check orthostatics. Check lytes BUN and creatinine daily. DNP note has been reviewed, I agree with a documented findings and plan of care. Patient was seen and examined.
[2017-11-07] MEDS: CHOLECALCIFEROL 1,000 UNIT TAB PO SCH (12:18)
[2017-11-07] MEDS: CYANOCOBALAMIN 500 MCG TAB PO SCH (12:18)
[2017-11-07 16:30] LABS: Glucose,Whole Blood 215 mg/dL (75-99)
--- NOTE | 2017-11-07 16:52 | P.PN ---
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 Patient dementia of breath 11/07/2017 Patient is comparing of dizziness which is chronic. She doesn't feel good Blood sugars has dropped down because of which I'm holding her discharge patient was switched to oral Lasix patient's Levemir will be changed from 100 units to 75 units at nighttime Constitutional: Denied any fatigue denied any fever. Cardio vascular: denied any chest pain, palpitations Gastrointestinal denied any nausea vomiting Pulmonary: As mentioned in HPI Neurologic denied any new focal deficits Objective - Vital Signs Vital signs: Vital Signs Temp 98.1 F 11/07/17 12:00 Pulse 90 11/07/17 12:00 Resp 18 11/07/17 12:00 BP 128/65 11/07/17 12:00 Pulse Ox 93 L 11/07/17 08:00 Intake & Output 11/06/17 11/07/17 11/07/17 18:59 06:59 18:59 Intake Total 600 120 200 Output Total 800 Balance 600 -680 200 Weight 84.4 kg Intake: Oral 600 120 200 Output: Urine 800 Other: Voiding Method Toilet Toilet - Exam PHYSICAL EXAMINATION: GENERAL: The patient is alert and oriented x3, not in any acute distress. Well developed, well nourished. HEENT: Pupils are round and equally reacting to light. EOMI. No scleral icterus. No conjunctival pallor. Normocephalic, atraumatic. No pharyngeal erythema. No thyromegaly. CARDIOVASCULAR: S1 and S2 present. No murmurs, rubs, or gallops. PULMONARY: Chest is clear to auscultation, no wheezing or crackles. ABDOMEN: Soft, nontender, nondistended, normoactive bowel sounds. No palpable organomegaly. MUSCULOSKELETAL: No joint swelling or deformity. EXTREMITIES: No cyanosis, clubbing, or pedal edema. NEUROLOGICAL: Gross neurological examination did not reveal any focal deficits. SKIN: No rashes. - Labs CBC & Chem 7: 11/07/17 05:29 11/07/17 05:29 Labs: Abnormal Lab Results - Last 24 Hours (Table) 11/06/17 11/06/17 11/07/17 Range/Units 16:54 21:12 05:29 WBC 11.2 H (3.8-10.6) k/uL Hgb 8.8 L (11.4-16.0) gm/dL Hct 32.2 L (34.0-46.0) % MCV 71.8 L (80.0-100.0) fL MCH 19.6 L (25.0-35.0) pg MCHC 27.2 L (31.0-37.0) g/dL RDW 20.7 H (11.5-15.5) % Neutrophils # 8.9 H (1.3-7.7) k/uL Potassium (3.5-5.1) mmol/L BUN (7-17) mg/dL Creatinine (0.52-1.04) mg/dL Glucose (74-99) mg/dL POC Glucose (mg/dL) 170 H 159 H (75-99) mg/dL 11/07/17 11/07/17 11/07/17 Range/Units 05:29 06:23 06:39 WBC (3.8-10.6) k/uL Hgb (11.4-16.0) gm/dL Hct (34.0-46.0) % MCV (80.0-100.0) fL MCH (25.0-35.0) pg MCHC (31.0-37.0) g/dL RDW (11.5-15.5) % Neutrophils # (1.3-7.7) k/uL Potassium 3.2 L (3.5-5.1) mmol/L BUN 23 H (7-17) mg/dL Creatinine 1.21 H (0.52-1.04) mg/dL Glucose 38 L* (74-99) mg/dL POC Glucose (mg/dL) 57 L 56 L (75-99) mg/dL 11/07/17 11/07/17 11/07/17 Range/Units 09:41 11:34 16:24 WBC (3.8-10.6) k/uL Hgb (11.4-16.0) gm/dL Hct (34.0-46.0) % MCV (80.0-100.0) fL MCH (25.0-35.0) pg MCHC (31.0-37.0) g/dL RDW (11.5-15.5) % Neutrophils # (1.3-7.7) k/uL Potassium (3.5-5.1) mmol/L BUN (7-17) mg/dL Creatinine (0.52-1.04) mg/dL Glucose (74-99) mg/dL POC Glucose (mg/dL) 128 H 146 H 215 H (75-99) mg/dL Assessment and Plan Plan: -Congestive heart failure chronic diastolic dysfunction it acute exacerbation improved patient is on oral Lasix at this time -Anemia contributing to shortness of breath received 2 units of blood transfusion -Elevated troponin secondary to heart failure and type II non-ST elevation myocardial infarction secondary to anemia -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 fib rate controlled at this time -History of mitral valve replacement with bioprosthetic valve -Type 2 diabetes mellitus: Low blood sugars, change in level overdosing as mentioned in the interval history
[2017-11-07] MEDS: FUROSEMIDE 20 MG TAB PO SCH (17:06)
[2017-11-07] MEDS ORDERED: INSULIN DETEMIR 100 UNIT/ML 10 ML VIAL SQ SCH (17:30)
[2017-11-07] MEDS: MELATONIN 5 MG TABLET PO SCH (19:50)
[2017-11-07] MEDS: LATANOPROST 0.005% OPHTH DROPS 2.5 ML BTL RIGHT EYE SCH (19:50)
[2017-11-07 20:46] LABS: Glucose,Whole Blood 199 mg/dL (75-99)
[2017-11-08 00:09] LABS: Glucose,Whole Blood 91 mg/dL (75-99)
[2017-11-08] MEDS: INSULIN ASPART 100 UNIT/ML 1 ML 10 ML VIAL SQ SCH ×3 (05:54→16:51)
[2017-11-08 05:55] LABS: Anisocytosis Slight; Basophils # (A) 0.1 k/uL (0-0.2); Basophils % (A) 1 %; Eosinophils # (A) 0.5 k/uL (0-0.7); Eosinophils % (A) 5 %; HCT 33.1 % (34.0-46.0); Hypochromasia Marked; Lymphocytes # (A) 2.3 k/uL (1.0-4.8); Lymphocytes % (A) 25 %; MCH 19.7 pg (25.0-35.0); MCHC 27.3 g/dL (31.0-37.0); MCV 72.2 fL (80.0-100.0); Mean Platelet Volume 9.7; Microcytosis Marked; Monocytes # (A) 0.7 k/uL (0-1.0); Monocytes % (A) 8 %; Neutrophils # (A) 5.4 k/uL (1.3-7.7); Neutrophils % (A) 58 %; Platelet Count 220 k/uL (150-450); Poikilocytosis Moderate; RBC 4.59 m/uL (3.80-5.40); RDW 19.6 % (11.5-15.5); WBC 9.3 k/uL (3.8-10.6)
[2017-11-08 05:58] LABS: Glucose,Whole Blood 63 mg/dL (75-99)
[2017-11-08 06:10] LABS: Glucose,Whole Blood 66 mg/dL (75-99)
[2017-11-08 06:13] LABS: Calcium 9.6 mg/dL (8.4-10.2); Potassium 3.6 mmol/L (3.5-5.1)
[2017-11-08] MEDS: CARVEDILOL 3.125 MG TAB PO SCH ×2 (06:15→16:58)
[2017-11-08] MEDS: LEVOTHYROXINE 75 MCG TAB PO SCH (06:15)
[2017-11-08] MEDS: PANTOPRAZOLE 40 MG TABLET PO SCH ×2 (06:15→16:57)
[2017-11-08 06:29] LABS: Glucose,Whole Blood 90 mg/dL (75-99)
[2017-11-08] MEDS: SYMBICORT 160-4.5 MCG INHALER INHALATION SCH ×2 (08:13→20:03)
[2017-11-08] MEDS: SPIRONOLACTONE 25 MG TAB PO SCH (10:10)
[2017-11-08] MEDS: ALLOPURINOL 100 MG TAB PO SCH ×2 (10:10→19:50)
[2017-11-08] MEDS: FUROSEMIDE 20 MG TAB PO SCH (10:10)
[2017-11-08] MEDS: ISOSORBIDE MONONITRATE ER 30 MG TAB.ER.24H PO SCH (10:11)
--- NOTE | 2017-11-08 10:36 | P.PN ---
Subjective Progress Note Date: 11/08/17 Mrs. Callaway is a pleasant 87-year-old past medical history significant for coronary artery disease with subsequent single vessel bypass grafting, dual chamber pacemaker for sick sinus syndrome and complete heart block, bioprosthetic aortic valve replacement, chronic persistent atrial fibrillation not on skilled nursing anticoagulation secondary to chronic anemia, COPD , hypertension, dyslipidemia, diastolic heart failure and diabetes mellitus. She follows with Dr. Daigle in the office. We have been asked to see her in consultation for evidence of possible heart failure. She states she was trying to get up out of bed yesterday when she became mildly dizzy and fell out of bed onto her left side. She denies symptoms of chest pain, shortness of breath, dizziness, palpitations, diaphoresis, nausea or vomiting. EKG on arrival reveals atrial fibrillation with controlled ventricular response with underlying right bundle branch block. This is consistent with old EKG's. Patient was found to be severely anemic, status post blood transfusion. 11/06/2017 Patient was seen and examined this morning, states overall that her breathing is improved today. Complaining of mild dizziness and feeling tired today. Blood pressure 120/60 with a heart rate in the 60s. White blood cell count 9.9 , hemoglobin 8.8, potassium 3.7, BUN 25, creatinine 1.2. 11/07/2017 Patient seen and examined this morning, denies any shortness of breath. LV function is normal. Her main complaint is that of headache. She also had a low blood sugar in the 30s this morning. She also complains that when she sits up she is dizzy, patient has been experiencing dizziness and headache for several years , we will check orthostatics. Blood pressure this morning 138/ 80 with a heart rate in the 70s. 11/08/2017 Mrs. Callaway seen and exammined this morning. She is resting comfortably in bed. Continues to complain of weakness and fatigue. Blood sugar are still low in the 60s. Orthostatic blood pressures performed yesterday were negative although she continues to complain of postural dizziness. Telemetry tracings reveal persistent atrial fibrillation with controlled ventricular response. Creatinine today up to 1.3, hgb 9. Objective - Vital Signs Vital signs: Vital Signs Temp 96.9 F L 11/08/17 07:52 Pulse 80 11/08/17 07:54 Resp 18 11/08/17 07:54 BP 126/67 11/08/17 07:52 Pulse Ox 96 11/08/17 07:52 Intake & Output 11/07/17 11/08/17 11/08/17 18:59 06:59 18:59 Intake Total 200 236 Balance 200 236 Weight 82.1 kg Intake: Oral 200 236 Other: Voiding Method Toilet Toilet Toilet - Exam Blood pressure 126/67 heart rate 88 afebrile GENERAL: Well-appearing, well-nourished and in no acute distress. NECK: Supple without JVD or thyromegaly. LUNGS: Breath sounds clear to auscultation bilaterally. Respiration equal and unlabored. No wheezes, rales or rhonchi. HEART: Irregular rate and rhythm with systolic ejection murmur, no rubs or gallops. S1 and S2 heard. EXTREMITIES: Normal range of motion, no edema. No clubbing or cyanosis. Peripheral pulses intact and strong. - Labs CBC & Chem 7: 11/08/17 05:42 11/08/17 05:31 Labs: Abnormal Lab Results - Last 24 Hours (Table) 11/07/17 11/07/17 11/07/17 Range/Units 11:34 16:24 20:42 Hgb (11.4-16.0) gm/dL Hct (34.0-46.0) % MCV (80.0-100.0) fL MCH (25.0-35.0) pg MCHC (31.0-37.0) g/dL RDW (11.5-15.5) % BUN (7-17) mg/dL Creatinine (0.52-1.04) mg/dL Glucose (74-99) mg/dL POC Glucose (mg/dL) 146 H 215 H 199 H (75-99) mg/dL 11/08/17 11/08/17 11/08/17 Range/Units 05:31 05:42 05:51 Hgb 9.0 L (11.4-16.0) gm/dL Hct 33.1 L (34.0-46.0) % MCV 72.2 L (80.0-100.0) fL MCH 19.7 L (25.0-35.0) pg MCHC 27.3 L (31.0-37.0) g/dL RDW 19.6 H (11.5-15.5) % BUN 22 H (7-17) mg/dL Creatinine 1.30 H (0.52-1.04) mg/dL Glucose 55 L (74-99) mg/dL POC Glucose (mg/dL) 63 L (75-99) mg/dL 11/08/17 Range/Units 06:08 Hgb (11.4-16.0) gm/dL Hct (34.0-46.0) % MCV (80.0-100.0) fL MCH (25.0-35.0) pg MCHC (31.0-37.0) g/dL RDW (11.5-15.5) % BUN (7-17) mg/dL Creatinine (0.52-1.04) mg/dL Glucose (74-99) mg/dL POC Glucose (mg/dL) 66 L (75-99) mg/dL Assessment and Plan Assessment: ASSESSMENT 1. Mild diastolic heart failure exacerbation, resolved currently on oral Lasix. 2. Chronic persistent atrial fibrillation not on terminologist anticoagulation. 3. Stable coronary artery disease s/p bypass grafting 4. History of aortic valve replacement with bioprosthetic valve 5. Dual-chamber pacemaker in place secondary to sick sinus syndrome and complete heart block 6. Dyslipidemia 7. Hypertension 8. Diabetes mellitus 9. Anemia, requiring blood transfusion 10. Chronic kidney disease stage II PLAN Continue cardiac medications as was previously ordered. She is stable from a cardiac perspective. Ongoing management of low blood sugars per primary medical team. Follow-up with Dr. Daigle as an outpatient. Nurse Practitioner note has been reviewed, I agree with a documented findings and plan of care. Patient was seen and examined.
[2017-11-08 12:02] LABS: Glucose,Whole Blood 155 mg/dL (75-99)
[2017-11-08] MEDS: CHOLECALCIFEROL 1,000 UNIT TAB PO SCH (12:39)
--- NOTE | 2017-11-08 13:41 | P.PN ---
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 Patient dementia of breath 11/07/2017 Patient is comparing of dizziness which is chronic. She doesn't feel good Blood sugars has dropped down because of which I'm holding her discharge patient was switched to oral Lasix patient's Levemir will be changed from 100 units to 75 units at nighttime 11/08/2017 Patient blood sugars are still low decrease the Levemir to 50 units PT and OT consultation patient is still comparing of dizziness patient appears to be mildly on the hypovolemic side cut down the Lasix to 40 oral twice a day from 60 twice a day mildly worsening kidney function Will repeat basic metabolic profile tomorrow. Constitutional: Denied any fatigue denied any fever. Cardio vascular: denied any chest pain, palpitations Gastrointestinal denied any nausea vomiting Pulmonary: As mentioned in HPI Neurologic denied any new focal deficits Objective - Vital Signs Vital signs: Vital Signs Temp 96.9 F L 11/08/17 07:52 Pulse 80 11/08/17 07:54 Resp 18 11/08/17 07:54 BP 126/67 11/08/17 07:52 Pulse Ox 96 11/08/17 07:52 Intake & Output 11/07/17 11/08/17 11/08/17 18:59 06:59 18:59 Intake Total 200 236 Balance 200 236 Weight 82.1 kg Intake: Oral 200 236 Other: Voiding Method Toilet Toilet Toilet - Exam PHYSICAL EXAMINATION: GENERAL: The patient is alert and oriented x3, not in any acute distress. Well developed, well nourished. HEENT: Pupils are round and equally reacting to light. EOMI. No scleral icterus. No conjunctival pallor. Normocephalic, atraumatic. No pharyngeal erythema. No thyromegaly. CARDIOVASCULAR: S1 and S2 present. No murmurs, rubs, or gallops. PULMONARY: Chest is clear to auscultation, no wheezing or crackles. ABDOMEN: Soft, nontender, nondistended, normoactive bowel sounds. No palpable organomegaly. MUSCULOSKELETAL: No joint swelling or deformity. EXTREMITIES: No cyanosis, clubbing, or pedal edema. NEUROLOGICAL: Gross neurological examination did not reveal any focal deficits. SKIN: No rashes. - Labs CBC & Chem 7: 11/08/17 05:42 11/08/17 05:31 Labs: Abnormal Lab Results - Last 24 Hours (Table) 11/07/17 11/07/17 11/08/17 Range/Units 16:24 20:42 05:31 Hgb (11.4-16.0) gm/dL Hct (34.0-46.0) % MCV (80.0-100.0) fL MCH (25.0-35.0) pg MCHC (31.0-37.0) g/dL RDW (11.5-15.5) % BUN 22 H (7-17) mg/dL Creatinine 1.30 H (0.52-1.04) mg/dL Glucose 55 L (74-99) mg/dL POC Glucose (mg/dL) 215 H 199 H (75-99) mg/dL 11/08/17 11/08/17 11/08/17 Range/Units 05:42 05:51 06:08 Hgb 9.0 L (11.4-16.0) gm/dL Hct 33.1 L (34.0-46.0) % MCV 72.2 L (80.0-100.0) fL MCH 19.7 L (25.0-35.0) pg MCHC 27.3 L (31.0-37.0) g/dL RDW 19.6 H (11.5-15.5) % BUN (7-17) mg/dL Creatinine (0.52-1.04) mg/dL Glucose (74-99) mg/dL POC Glucose (mg/dL) 63 L 66 L (75-99) mg/dL 02/04/18 Range/Units 11:47 Hgb (11.4-16.0) gm/dL Hct (34.0-46.0) % MCV (80.0-100.0) fL MCH (25.0-35.0) pg MCHC (31.0-37.0) g/dL RDW (11.5-15.5) % BUN (7-17) mg/dL Creatinine (0.52-1.04) mg/dL Glucose (74-99) mg/dL POC Glucose (mg/dL) 155 H (75-99) mg/dL Assessment and Plan Plan: -Congestive heart failure chronic diastolic dysfunction it acute exacerbation improved patient is on oral Lasix at this time, mildly on the hypovolemic side because of which her oral Lasix dose is being decreased air patient does have chronic dizziness etiology is unclear probably related to autonomic dysfunction -Anemia contributing to shortness of breath received 2 units of blood transfusion -Elevated troponin secondary to heart failure and type II non-ST elevation myocardial infarction secondary to anemia -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 fib rate controlled at this time -History of mitral valve replacement with bioprosthetic valve -Type 2 diabetes mellitus: Low blood sugars, change in Levemir dose as mentioned in the interval history
[2017-11-08 16:57] LABS: Glucose,Whole Blood 192 mg/dL (75-99)
[2017-11-08] MEDS: FUROSEMIDE 40 MG TAB PO SCH (16:58)
[2017-11-08] MEDS: CYANOCOBALAMIN 500 MCG TAB PO SCH (16:58)
[2017-11-08] MEDS: ACETAMINOPHEN TAB 325 MG TAB PO PRN (17:46)
[2017-11-08] MEDS: INSULIN DETEMIR 100 UNIT/ML 10 ML VIAL SQ SCH (17:47)
[2017-11-08] MEDS: LATANOPROST 0.005% OPHTH DROPS 2.5 ML BTL RIGHT EYE SCH (19:50)
[2017-11-08] MEDS: MELATONIN 5 MG TABLET PO SCH (19:50)
[2017-11-08 20:39] LABS: Glucose,Whole Blood 257 mg/dL (75-99)
[2017-11-09] MEDS: INSULIN ASPART 100 UNIT/ML 1 ML 10 ML VIAL SQ SCH ×5 (00:26→21:19)
[2017-11-09 01:58] LABS: Glucose,Whole Blood 119 mg/dL (75-99)
[2017-11-09 05:48] LABS: Glucose,Whole Blood 102 mg/dL (75-99)
[2017-11-09] MEDS: CARVEDILOL 3.125 MG TAB PO SCH ×2 (06:06→17:14)
[2017-11-09] MEDS: LEVOTHYROXINE 75 MCG TAB PO SCH (06:06)
[2017-11-09] MEDS: PANTOPRAZOLE 40 MG TABLET PO SCH ×2 (06:06→17:15)
[2017-11-09] MEDS: FUROSEMIDE 40 MG TAB PO SCH (07:49)
[2017-11-09] MEDS: ISOSORBIDE MONONITRATE ER 30 MG TAB.ER.24H PO SCH (07:49)
[2017-11-09] MEDS: ALLOPURINOL 100 MG TAB PO SCH ×2 (07:49→19:49)
[2017-11-09] MEDS: SPIRONOLACTONE 25 MG TAB PO SCH (07:50)
[2017-11-09] MEDS: CHOLECALCIFEROL 1,000 UNIT TAB PO SCH (07:51)
[2017-11-09] MEDS: CYANOCOBALAMIN 500 MCG TAB PO SCH (07:51)
[2017-11-09] MEDS: SYMBICORT 160-4.5 MCG INHALER INHALATION SCH ×2 (08:29→20:10)
[2017-11-09] MEDS: Acetaminophen-Codeine 300-30mg TAB PO PRN ×2 (10:24→21:29)
[2017-11-09 11:36] LABS: Glucose,Whole Blood 202 mg/dL (75-99)
[2017-11-09 12:36] LABS: Calcium 9.4 mg/dL (8.4-10.2); Potassium 3.8 mmol/L (3.5-5.1)
[2017-11-09 14:11] VITALS: BMI 30.8
--- NOTE | 2017-11-09 14:39 | P.PN ---
Subjective Progress Note Date: 11/09/17 Mrs. Callaway is a pleasant 87-year-old past medical history significant for coronary artery disease with subsequent single vessel bypass grafting, dual chamber pacemaker for sick sinus syndrome and complete heart block, bioprosthetic aortic valve replacement, chronic persistent atrial fibrillation not on prison anticoagulation secondary to chronic anemia, COPD , hypertension, dyslipidemia, diastolic heart failure and diabetes mellitus. She follows with Dr. Daigle in the office. We have been asked to see her in consultation for evidence of possible heart failure. She states she was trying to get up out of bed yesterday when she became mildly dizzy and fell out of bed onto her left side. She denies symptoms of chest pain, shortness of breath, dizziness, palpitations, diaphoresis, nausea or vomiting. EKG on arrival reveals atrial fibrillation with controlled ventricular response with underlying right bundle branch block. This is consistent with old EKG's. Patient was found to be severely anemic, status post blood transfusion. 11/06/2017 Patient was seen and examined this morning, states overall that her breathing is improved today. Complaining of mild dizziness and feeling tired today. Blood pressure 120/60 with a heart rate in the 60s. White blood cell count 9.9 , hemoglobin 8.8, potassium 3.7, BUN 25, creatinine 1.2. 11/07/2017 Patient seen and examined this morning, denies any shortness of breath. LV function is normal. Her main complaint is that of headache. She also had a low blood sugar in the 30s this morning. She also complains that when she sits up she is dizzy, patient has been experiencing dizziness and headache for several years , we will check orthostatics. Blood pressure this morning 138/ 80 with a heart rate in the 70s. 11/09/2017 Patient seen and examined this morning, breathing stable overall. Patient still complains of dizziness when sitting up. No significant orthostatics noted , no arrhythmias noted. We will continue the patient on 60 mg of Lasix by mouth twice a day we will also start the patient on Antivert to see if that helps with her dizziness. Objective - Vital Signs Vital signs: Vital Signs Temp 97.1 F L 11/09/17 07:57 Pulse 65 11/09/17 12:00 Resp 18 11/09/17 12:00 BP 135/63 11/09/17 12:00 Pulse Ox 93 L 11/09/17 12:00 Intake & Output 11/08/17 11/09/17 11/09/17 18:59 06:59 18:59 Intake Total 472 Output Total 1 Balance 471 Weight 81.5 kg Intake: Oral 472 Output: Urine 1 Other: Voiding Method Toilet Toilet # Bowel Movements 2 - Exam PHYSICAL EXAMINATION: HEENT: Head is atraumatic, normocephalic. Pupils equal, round. Neck is supple. There is no elevated jugular venous pressure. HEART EXAMINATION: Heart S1 and S2 with systolic murmur is heard CHEST EXAMINATION: Lungs are clear with diminished air entry to bilateral bases ABDOMEN: Soft, nontender. Bowel sounds are heard. No organomegaly noted. EXTREMITIES: 2+ peripheral pulses with no evidence of peripheral edema and no calf tenderness noted. NEUROLOGIC patient is awake, alert and oriented -3. . - Labs CBC & Chem 7: 11/08/17 05:42 11/09/17 11:50 Labs: Abnormal Lab Results - Last 24 Hours (Table) 11/08/17 11/08/17 11/09/17 Range/Units 16:36 20:37 01:54 BUN (7-17) mg/dL Creatinine (0.52-1.04) mg/dL Glucose (74-99) mg/dL POC Glucose (mg/dL) 192 H 257 H 119 H (75-99) mg/dL 11/09/17 11/09/17 11/09/17 Range/Units 05:41 11:34 11:50 BUN 24 H (7-17) mg/dL Creatinine 1.30 H (0.52-1.04) mg/dL Glucose 181 H (74-99) mg/dL POC Glucose (mg/dL) 102 H 202 H (75-99) mg/dL Assessment and Plan Plan: Assessment and plan #1 anemia, requiring blood transfusion #2 chronic kidney disease stage II #3 sleep apnea #4 history of PE #5 chronic persistent atrial fibrillation #6 known history of coronary artery disease with prior bypass surgery #7 Bioprosthetic aortic valve #8 prior pacemaker implantation #9 diabetes #10 hyperlipidemia Plan From cardiology's perspective, we will start the patient on Lasix 60 mg one tablet by mouth twice a day. Start Antivert for the dizziness. Follow-up with Dr. Daigle post discharge. DNP note has been reviewed, I agree with a documented findings and plan of care. Patient was seen and examined.
[2017-11-09] MEDS ORDERED: MECLIZINE 12.5 MG TAB PO PRN (14:40)
[2017-11-09 16:35] LABS: Glucose,Whole Blood 214 mg/dL (75-99)
[2017-11-09] MEDS: FUROSEMIDE 20 MG TAB PO SCH (17:13)
[2017-11-09] MEDS: INSULIN DETEMIR 100 UNIT/ML 10 ML VIAL SQ SCH (17:57)
[2017-11-09] MEDS: LATANOPROST 0.005% OPHTH DROPS 2.5 ML BTL RIGHT EYE SCH (19:49)
[2017-11-09 20:44] LABS: Glucose,Whole Blood 146 mg/dL (75-99)
[2017-11-09] MEDS: MELATONIN 5 MG TABLET PO SCH (21:19)
[2017-11-09 23:06] VITALS: RESP 16
[2017-11-10] MEDS: Acetaminophen-Codeine 300-30mg TAB PO PRN ×2 (03:09→08:51)
[2017-11-10 05:17] LABS: Glucose,Whole Blood 90 mg/dL (75-99)
[2017-11-10] MEDS: LEVOTHYROXINE 75 MCG TAB PO SCH (07:02)
[2017-11-10 07:05] LABS: Glucose,Whole Blood 80 mg/dL (75-99)
[2017-11-10] MEDS: INSULIN ASPART 100 UNIT/ML 1 ML 10 ML VIAL SQ SCH ×2 (07:57→11:44)
[2017-11-10] MEDS: CHOLECALCIFEROL 1,000 UNIT TAB PO SCH (08:52)
[2017-11-10] MEDS: PANTOPRAZOLE 40 MG TABLET PO SCH (08:52)
[2017-11-10] MEDS: CYANOCOBALAMIN 500 MCG TAB PO SCH (08:52)
[2017-11-10] MEDS: SPIRONOLACTONE 25 MG TAB PO SCH (08:52)
[2017-11-10] MEDS: CARVEDILOL 3.125 MG TAB PO SCH (08:52)
[2017-11-10] MEDS: ALLOPURINOL 100 MG TAB PO SCH (08:53)
[2017-11-10] MEDS: FUROSEMIDE 20 MG TAB PO SCH (08:53)
[2017-11-10 11:35] LABS: Glucose,Whole Blood 103 mg/dL (75-99)
[2017-11-10] MEDS: SYMBICORT 160-4.5 MCG INHALER INHALATION SCH (12:09)
--- NOTE | 2017-11-10 14:42 | P.DS ---
Providers Date of admission: 11/05/17 07:48 Expected date of discharge: 11/10/17 Attending physician: Naomy Mejia Consults: 11/03/17 17:09 Consult Physician Routine Consulting Provider: Dorina Kim Consult Reason/Comments: CHF Do you want consulting provider notified?: Yes Primary care physician: [facility] Course: Final Diagnoses: -Congestive heart failure chronic diastolic dysfunction it acute exacerbation improved patient is on oral Lasix at this time, mildly on the hypovolemic side because of which her oral Lasix dose is being decreased air patient does have chronic dizziness etiology is unclear probably related to autonomic dysfunction -Anemia contributing to shortness of breath received 2 units of blood transfusion -Elevated troponin secondary to heart failure and type II non-ST elevation myocardial infarction secondary to anemia -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 fib rate controlled at this time -History of mitral valve replacement with bioprosthetic valve -Type 2 diabetes mellitus: Low blood sugars, change in Levemir dose as mentioned in the interval history Hospital course:87-year-old female came in status of breath and anemia patient received 2 units of blood transfusion and patient still short short of breath and wheezing doesn't have any history of COPD but was started on Symbicort patient may have cardiac asthma because of which I'll obtain a chest x-ray patient the had history of CABG in the past history of congestive heart failure chronic diastolic dysfunction history of atrial fibrillation, had a bioprosthetic valve in the past in spite of atrial fibrillation patient is not on any anticoagulation because of her previous GI bleeds at this point of time patient doesn't have any GI bleed but still quite short of breath patient uses around 100 mg of oral Lasix at home patient will be started on 60 IV twice a day of IV Lasix patient does have elevated JVD. Patient dementia of breath. 11/07/2017 Patient is comparing of dizziness which is chronic. She doesn't feel good Blood sugars has dropped down because of which I'm holding her discharge patient was switched to oral Lasix patient's Levemir will be changed from 100 units to 75 units at nighttime 11/08/2017 Patient blood sugars are still low decrease the Levemir to 50 units PT and OT consultation patient is still comparing of dizziness patient appears to be mildly on the hypovolemic side cut down the Lasix to 40 oral twice a day from 60 twice a day mildly worsening kidney function Will repeat basic metabolic profile tomorrow. Constitutional: Denied any fatigue denied any fever. Cardio vascular: denied any chest pain, palpitations Gastrointestinal denied any nausea vomiting Pulmonary: As mentioned in HPI Neurologic denied any new focal deficits Physical exam:GENERAL: The patient is alert and oriented x3, not in any acute distress. Well developed, well nourished. HEENT: Pupils are round and equally reacting to light. EOMI. No scleral icterus. No conjunctival pallor. Normocephalic, atraumatic. No pharyngeal erythema. No thyromegaly. CARDIOVASCULAR: S1 and S2 present. No murmurs, rubs, or gallops. PULMONARY: Chest is clear to auscultation, no wheezing or crackles. ABDOMEN: Soft, nontender, nondistended, normoactive bowel sounds. No palpable organomegaly. MUSCULOSKELETAL: No joint swelling or deformity. EXTREMITIES: No cyanosis, clubbing, or pedal edema. NEUROLOGICAL: Gross neurological examination did not reveal any focal deficits. SKIN: No rashes. Significant clinical improvement. Cleared by consults for discharge. Patient is being discharged [facility] in a stable condition with guarded prognosis. Time taken: Greater than 35 minutes Patient Condition at Discharge: Stable Plan - Discharge Summary Discharge Rx Participant: Yes New Discharge Prescriptions: New Budesonide-Formot 160-4.5 Mcg [Symbicort 160-4.5 Mcg Inhaler] 2 puff INHALATION RT-BID puff Furosemide [Lasix] 60 mg PO BID@0900,1600 tab Insulin Detemir [Levemir] 35 unit SQ AC-SUPPER syr INSULIN LISPRO (HumaLOG) [humaLOG] 0 unit SQ ACHS #1 vial Meclizine [Antivert] 12.5 mg PO BID PRN tab PRN Reason: Vertigo Pantoprazole [Protonix] 40 mg PO AC-BID tablet. Spironolactone [Aldactone] 25 mg PO DAILY tab Continue Carvedilol [Coreg] 3.125 mg PO BID Bimatoprost [Lumigan .01% Ophth Soln] 1 drop RIGHT EYE HS Allopurinol 200 mg PO BID Insulin Detemir [Levemir] 100 unit SQ AC-SUPPER Ubidecarenone [Co Q-10] 100 mg PO DAILY Cyanocobalamin [Vitamin B-12] 500 mcg PO DAILY Cholecalciferol [Vitamin D3] 1,000 unit PO DAILY Albuterol Inhaler [Ventolin Hfa Inhaler] 1 - 2 puff INHALATION RT-Q6H PRN PRN Reason: sob Albuterol Nebulized [Ventolin Nebulized] 2.5 mg INHALATION RT-Q6H PRN PRN Reason: sob Levothyroxine Sodium [Synthroid] 75 mcg PO DAILY Melatonin 5 mg PO HS Acetaminophen-Codeine 300-30mg [Tylenol w/codeine #3] 1 tab PO Q6HR PRN #20 tab PRN Reason: Moderate Pain Discontinued sitaGLIPtin [Januvia] 100 mg PO DAILY glipiZIDE [Glucotrol] 10 mg PO AC-BID Furosemide [Lasix] 20 mg PO BID Furosemide [Lasix] 80 mg PO BID Discharge Medication List Bimatoprost [Lumigan .01% Ophth Soln] 1 drop RIGHT EYE HS 03/25/14 [History] Carvedilol [Coreg] 3.125 mg PO BID 03/25/14 [History] Allopurinol 200 mg PO BID 03/07/15 [History] Insulin Detemir [Levemir] 100 unit SQ AC-SUPPER 06/21/17 [History] Cholecalciferol [Vitamin D3] 1,000 unit PO DAILY 08/28/17 [History] Cyanocobalamin [Vitamin B-12] 500 mcg PO DAILY 08/28/17 [History] Ubidecarenone [Co Q-10] 100 mg PO DAILY 08/28/17 [History] Albuterol Inhaler [Ventolin Hfa Inhaler] 1 - 2 puff INHALATION RT-Q6H PRN [History] Albuterol Nebulized [Ventolin Nebulized] 2.5 mg INHALATION RT-Q6H PRN 11/03/17 [ History] Levothyroxine Sodium [Synthroid] 75 mcg PO DAILY 11/03/17 [History] Melatonin 5 mg PO HS 11/03/17 [History] Acetaminophen-Codeine 300-30mg [Tylenol w/codeine #3] 1 tab PO Q6HR PRN #20 tab 11/10/17 [Rx] Budesonide-Formot 160-4.5 Mcg [Symbicort 160-4.5 Mcg Inhaler] 2 puff INHALATION RT-BID puff 11/10/17 [Rx] Furosemide [Lasix] 60 mg PO BID@0900,1600 tab 11/10/17 [Rx] INSULIN LISPRO (HumaLOG) [humaLOG] 0 unit SQ ACHS #1 vial 11/10/17 [Rx] Insulin Detemir [Levemir] 35 unit SQ AC-SUPPER syr 11/10/17 [Rx] Meclizine [Antivert] 12.5 mg PO BID PRN tab 11/10/17 [Rx] Pantoprazole [Protonix] 40 mg PO AC-BID tablet. 11/10/17 [Rx] Spironolactone [Aldactone] 25 mg PO DAILY tab 11/10/17 [Rx] Follow up Appointment(s)/Referral(s): Hilton Perdue MD [REFERRING] - 3 Days ([facility] Jesse Amor MD [Primary Care Provider] - 1 Week (DC from subacute rehab) Blanche Daigle MD [STAFF PHYSICIAN] - 11/25/17 1:45 pm (This is an appointment patient already had set up, please keep as hospital follow up) [facility] Visiting Nurse, [NON-STAFF] - Patient Instructions/Handouts: Hypoglycemia in a Person with Diabetes (DC), Dizziness (GEN), Anemia (DC) Activity/Diet/Wound Care/Special Instructions: cbc,bmp in 3 days
[2017-11-10 15:17] VITALS: BP 132/67; PULSE 78; TEMP 98.1
--- NOTE | 2017-11-10 16:43 | XR ---
EXAMINATION TYPE: XR chest 2V DATE OF EXAM: 11/10/2017 COMPARISON: 11/05/2017 HISTORY: Fall with chest pain TECHNIQUE: Frontal and lateral views of the chest are obtained. FINDINGS: There is a new trace right pleural effusion. No displaced rib fractures are identified. Ca rdiomediastinal silhouette is enlarged with post cardiac valvular replacement and left-sided 2-lead c ardiac device. No new focal consolidation, pulmonary vascular congestion or pneumothorax is seen. Pul monary hyperinflation is compatible with underlying COPD. Moderate multilevel degenerative changes of the thoracic spine and diffuse osteopenia are noted. IMPRESSION: New trace right pleural effusion. Otherwise unchanged exam from the prior.
== END 2017-11-10 16:45 | DRG 280 ==
LOC: EC 10:55 → 3OBS 14:12 → OBSVTOIN 11-05 07:48 → 6SEL 11-05 19:17 → 3SUR 11-09 22:42
PROVIDERS: ADMIT Hospitalist; ATTEND Hospitalist
PROC: 30233N1 Transfusion of Nonautologous Red Blood Cells into Peripheral Vein, Percutaneous Approach (ICD-10-PCS; principal; 2017-11-05)
DX: I13.0 Hypertensive heart and chronic kidney disease with heart failure and stage 1 through stage 4 chronic kidney disease, or unspecified chronic kidney disease (principal); I50.33 Acute on chronic diastolic (congestive) heart failure; I21.A1 Myocardial infarction type 2; I44.2 Atrioventricular block, complete; N17.9 Acute kidney failure, unspecified; E11.21 Type 2 diabetes mellitus with diabetic nephropathy; I48.1 Persistent atrial fibrillation; E11.43 Type 2 diabetes mellitus with diabetic autonomic (poly)neuropathy; E86.1 Hypovolemia; E11.22 Type 2 diabetes mellitus with diabetic chronic kidney disease; E11.65 Type 2 diabetes mellitus with hyperglycemia; I48.2 Chronic atrial fibrillation; D63.8 Anemia in other chronic diseases classified elsewhere; N18.2 Chronic kidney disease, stage 2 (mild); E03.9 Hypothyroidism, unspecified; E78.5 Hyperlipidemia, unspecified; G47.30 Sleep apnea, unspecified; H35.30 Unspecified macular degeneration; H40.9 Unspecified glaucoma; H54.62 Unqualified visual loss, left eye, normal vision right eye; I25.10 Atherosclerotic heart disease of native coronary artery without angina pectoris; I45.10 Unspecified right bundle-branch block; J44.9 Chronic obstructive pulmonary disease, unspecified; R09.02 Hypoxemia; W06.XXXA Fall from bed, initial encounter; Z80.9 Family history of malignant neoplasm, unspecified; Z82.49 Family history of ischemic heart disease and other diseases of the circulatory system; Z83.3 Family history of diabetes mellitus; Z85.828 Personal history of other malignant neoplasm of skin; Z86.711 Personal history of pulmonary embolism; Z87.891 Personal history of nicotine dependence; Z90.710 Acquired absence of both cervix and uterus; Z95.0 Presence of cardiac pacemaker; Z95.1 Presence of aortocoronary bypass graft; Z95.3 Presence of xenogenic heart valve
CPT/HCPCS: 36415; 70450; 71046; 80048; 80053; 83036; 83735; 83880; 84484; 85025; 85027; 85610; 85730; 86850; 86900; 86901; 86920; 87502; 93005; 93306; 94640; 94760; 99285

== ENCOUNTER 2017-12-25 16:19 | Inpatient (IN) | payer MEDICARE ==
[2017-12-25] MEDS ORDERED: MORPHINE SULFATE/PF 10MG/10ML VL IVP STA (17:01)
[2017-12-25] MEDS ORDERED: SODIUM CHLORIDE 0.9% 1,000 ML IV STA ×2 (17:01)
[2017-12-25] MEDS ORDERED: ONDANSETRON 4 MG/2 ML VIAL IVP STA (17:01)
[2017-12-25] MEDS ORDERED: metroNIDAZOLE 500 MG TAB PO STA (17:05)
[2017-12-25] MEDS ORDERED: cefTRIAXone IN SWFI 2,000 MG/20 ML SYRINGE IVP STA (17:08)
--- NOTE | 2017-12-25 17:15 | ED ---
Abdominal Pain HPI - General Chief Complaint: Abdominal Pain Stated Complaint: Diarrhea Time Seen by Provider: 12/25/17 16:29 Source: patient, EMS Mode of arrival: EMS Limitations: no limitations - History of Present Illness Initial Comments: 87 years Old female presents with a diarrhea since Thursday she said she had multiple loose stools and also complaining about lower abdominal pain she also had a fever she denies any blood in the stool she denies any mucus. Denies any sick contacts or any family member having similar symptoms, she stated no recent antibiotics were used she does have a history of complex some diseases she has ischemic heart disease history of congestive heart failure cancer diabetes GI bleed pulmonary embolism sleep apnea and gout she said that she status post appendectomy cholecystectomy and hysterectomy, review of system is unremarkable otherwise - Related Data Home Medications Medication Instructions Recorded Confirmed Bimatoprost [Lumigan .01% Ophth 1 drop RIGHT EYE HS 03/25/14 12/25/17 Soln] Carvedilol [Coreg] 3.125 mg PO BID 03/25/14 12/25/17 Allopurinol 200 mg PO BID 03/07/15 12/25/17 Cholecalciferol [Vitamin D3] 1,000 unit PO DAILY 08/28/17 12/25/17 Cyanocobalamin [Vitamin B-12] 500 mcg PO DAILY 08/28/17 12/25/17 Ubidecarenone [Co Q-10] 100 mg PO DAILY 08/28/17 12/25/17 Albuterol Inhaler [Ventolin Hfa 1 - 2 puff INHALATION RT-Q6H PRN 11/03/17 Inhaler] Albuterol Nebulized [Ventolin 2.5 mg INHALATION RT-Q6H PRN 11/03/17 12/25/17 Nebulized] Levothyroxine Sodium [Synthroid] 75 mcg PO DAILY 11/03/17 12/25/17 Melatonin 5 mg PO HS 11/03/17 12/25/17 INSULIN LISPRO (HumaLOG) [humaLOG] See Protocol SQ ACHS 12/25/17 12/25/17 Previous Rx's Medication Instructions Recorded Acetaminophen-Codeine 300-30mg 1 tab PO Q6HR PRN #20 tab 11/10/17 [Tylenol w/codeine #3] Budesonide-Formot 160-4.5 Mcg 2 puff INHALATION RT-BID puff 11/10/17 [Symbicort 160-4.5 Mcg Inhaler] Furosemide [Lasix] 60 mg PO BID@0900,1600 tab 11/10/17 Insulin Detemir [Levemir] 35 unit SQ AC-SUPPER syr 11/10/17 Meclizine [Antivert] 12.5 mg PO BID PRN tab 11/10/17 Pantoprazole [Protonix] 40 mg PO AC-BID tablet. 11/10/17 Spironolactone [Aldactone] 25 mg PO DAILY tab 11/10/17 Allergies Allergy/AdvReac Type Severity Reaction Status Date / Time aspirin Allergy Unknown Verified 12/25/17 16:34 bee pollen [Bee Pollen] Allergy Anaphylaxis Verified 12/25/17 16:34 celecoxib [From Celebrex] Allergy Unknown Verified 12/25/17 16:34 blood thinners Allergy Severe see comment Uncoded 12/25/17 16:32 URIC ACIDS AdvReac GOUT Uncoded 12/25/17 16:32 Review of Systems ROS Statement: Those systems with pertinent positive or pertinent negative responses have been documented in the HPI. ROS Other: All systems not noted in ROS Statement are negative. Past Medical History Past Medical History: Coronary Artery Disease (CAD), Cancer, Heart Failure, Diabetes Mellitus, GI Bleed, Hypertension, Osteoarthritis (OA), Pulmonary Embolus (PE), Sleep Apnea/CPAP/BIPAP, Thyroid Disorder Additional Past Medical History / Comment(s): gout, chronic pain in back hip and leg, diverticulitis, LT EYE BLIND,GLAUCOMA, MAC DEGENERATION RT EYE, MURMUR , DIVERTICULAR DX.OVARIAN CYSTS,ANEMIA,SKIN CA,ANEMIA, TRACHEBRONCHITIS WITH REACTIVE BRONCHOSPASM.used to use cpap machine . Increased shortness of breath with activity and at rest. ARACELI CARPAL TUNNEL, skin caner History of Any Multi-Drug Resistant Organisms: None Reported Past Surgical History: Appendectomy, Bowel Resection, Breast Surgery, Cardiac Valve Replacement, Cholecystectomy, Coronary Bypass/CABG, Heart Catheterization , Hysterectomy, Orthopedic Surgery, Pacemaker, Tonsillectomy Additional Past Surgical History / Comment(s): pacemaker, AORTIC VALVE REPLACEMENT(TISSUE) AND 1 VESSEL BYPASS, CYST REMOVED FROM HAND/HEAD,BOWEL RESECTION D/T DIVERTICULITIS.KRISTYN FILTER, COLONOCOSPY/POLYPECTOMY/EGD, PAST LT EYE SX-DAMAGED THE OPTIC NERVE-BLIND LT EYE.lt knee arthrosopy, skin cancer removed from hand/head Past Anesthesia/Blood Transfusion Reactions: No Reported Reaction Type of Cardiac Device: Permanent Pacemaker Device Placement Date:: 2010 Past Psychological History: Depression Smoking Status: Former smoker - Past Family History Brother(s) History Unknown: Yes Father Family Medical History: Cancer Additional Family Medical History / Comment(s): ALCOHOLIC-- 1969 Mother Family Medical History: Cancer, Coronary Artery Disease (CAD), Dementia, Diabetes Mellitus Additional Family Medical History / Comment(s): 1984 General Exam - General Exam Comments Initial Comments: General: The patient is awake and alert, in no distress, and does not appear acutely ill. Skin: Skin is warm and dry and no rashes or lesions are noted. Eye: Pupils are equal, round and reactive to light, extra-ocular movements are intact; there is normal conjunctiva bilaterally. Ears, nose, mouth and throat: There are moist mucous membranes and no oral lesions. Neck: The neck is supple, there is no tenderness or JVD. Cardiovascular: There is a regular rate and rhythm. No murmur, rub or gallop is appreciated. Respiratory: To auscultation bilateral, no wheezing no rhonchi no distress respiratory mcdaniel noticed Gastrointestinal: Soft, non-distended, non-tender abdomen without masses or organomegaly noted. There is no rebound or guarding present. Bowel sounds are unremarkable. Back: There is no tenderness to palpation in the midline. There is no obvious deformity. Musculoskeletal: Normal ROM, no tenderness, There is no pedal edema. There is no calf tenderness or swelling. No cords were appreciated. Neurological: CN II-XII intact, Cranial nerves III through XII are intact. There are no obvious motor or sensory deficits. Coordination appears grossly intact. Speech is normal. Psychiatric: Cooperative, appropriate mood & affect, normal judgment. Limitations: no limitations Course Vital Signs 12/25/17 12/25/17 16:30 18:16 Temperature 100.8 F H 99.2 F Pulse Rate 98 82 Respiratory 20 18 Rate Blood Pressure 135/67 116/55 O2 Sat by Pulse 98 99 Oximetry Patient was reassessed at term 1818, troponin is positive CBC, CMP are unremarkable creatinine is slightly elevated 1.0 CO2 is 20 reflecting a mild metabolic acidosis total bili is 1.9 acute abdominal series is unremarkable home patient came in with a fever diarrhea abdominal pain and considering she has a history of ischemic heart disease status post CABG she be admitted considering her age is 87 with a laceration to head and heparinize her or this bump included a negative troponin is secondary to mild renal insufficiency or mild heart failure we will leave that to cardiology and given one dose of Lovenox 0.75 mg/kg then admitted under Dr. Harper's service cardiology be consulted at this point C. diff is pending I will continue the Flagyl by mouth as well as antibiotics to cover the gram-negative infection Medical Decision Making - Lab Data Result diagrams: 12/25/17 16:55 12/25/17 16:55 Lab Results 12/25/17 12/25/17 12/25/17 Range/Units 16:55 16:55 16:55 WBC 5.0 (3.8-10.6) k/uL RBC 4.94 (3.80-5.40) m/uL Hgb 9.7 L (11.4-16.0) gm/dL Hct 33.3 L (34.0-46.0) % MCV 67.5 L (80.0-100.0) fL MCH 19.7 L (25.0-35.0) pg MCHC 29.1 L (31.0-37.0) g/dL RDW 21.0 H (11.5-15.5) % Plt Count 161 (150-450) k/uL Neutrophils % (Manual) 77 % Band Neutrophils % 3 % Lymphocytes % (Manual) 14 % Monocytes % (Manual) 5 % Basophils % (Manual) 1 % Neutrophils # (Manual) 4.00 (1.3-7.7) k/uL Lymphocytes # (Manual) 0.70 L (1.0-4.8) k/uL Monocytes # (Manual) 0.25 (0-1.0) k/uL Basophils # (Manual) 0.05 (0-0.2) k/uL Nucleated RBCs 0 (0-0) /100 WBC Toxic Granulation Present Polychromasia Present Hypochromasia Marked Poikilocytosis Moderate Poikilocytosis (manual Present Anisocytosis Moderate Microcytosis Marked Target Cells Present Sodium 133 L (137-145) mmol/L Potassium 4.1 (3.5-5.1) mmol/L Chloride 103 (98-107) mmol/L Carbon Dioxide 20 L (22-30) mmol/L Anion Gap 10 mmol/L BUN 25 H (7-17) mg/dL Creatinine 1.20 H (0.52-1.04) mg/dL Est GFR (CKD-EPI)AfAm 47 (>60 ml/min/1.73 sqM) Est GFR (CKD-EPI)NonAf 41 (>60 ml/min/1.73 sqM) Glucose 146 H (74-99) mg/dL Plasma Lactic Acid Arash 2.0 (0.7-2.0) mmol/L Calcium 8.8 (8.4-10.2) mg/dL Total Bilirubin 1.9 H (0.2-1.3) mg/dL AST 56 H (14-36) U/L ALT 28 (9-52) U/L Alkaline Phosphatase 220 H (38-126) U/L Troponin I (0.000-0.034) ng/mL Total Protein 5.6 L (6.3-8.2) g/dL Albumin 2.8 L (3.5-5.0) g/dL Amylase <30 L (30-110) U/L Lipase 160 (23-300) U/L 12/25/17 Range/Units 16:55 WBC (3.8-10.6) k/uL RBC (3.80-5.40) m/uL Hgb (11.4-16.0) gm/dL Hct (34.0-46.0) % MCV (80.0-100.0) fL MCH (25.0-35.0) pg MCHC (31.0-37.0) g/dL RDW (11.5-15.5) % Plt Count (150-450) k/uL Neutrophils % (Manual) % Band Neutrophils % % Lymphocytes % (Manual) % Monocytes % (Manual) % Basophils % (Manual) % Neutrophils # (Manual) (1.3-7.7) k/uL Lymphocytes # (Manual) (1.0-4.8) k/uL Monocytes # (Manual) (0-1.0) k/uL Basophils # (Manual) (0-0.2) k/uL Nucleated RBCs (0-0) /100 WBC Toxic Granulation Polychromasia Hypochromasia Poikilocytosis Poikilocytosis (manual Anisocytosis Microcytosis Target Cells Sodium (137-145) mmol/L Potassium (3.5-5.1) mmol/L Chloride (98-107) mmol/L Carbon Dioxide (22-30) mmol/L Anion Gap mmol/L BUN (7-17) mg/dL Creatinine (0.52-1.04) mg/dL Est GFR (CKD-EPI)AfAm (>60 ml/min/1.73 sqM) Est GFR (CKD-EPI)NonAf (>60 ml/min/1.73 sqM) Glucose (74-99) mg/dL Plasma Lactic Acid Arash (0.7-2.0) mmol/L Calcium (8.4-10.2) mg/dL Total Bilirubin (0.2-1.3) mg/dL AST (14-36) U/L ALT (9-52) U/L Alkaline Phosphatase (38-126) U/L Troponin I 0.053 H* (0.000-0.034) ng/mL Total Protein (6.3-8.2) g/dL Albumin (3.5-5.0) g/dL Amylase (30-110) U/L Lipase (23-300) U/L Disposition Referrals: Jesse Amor MD [Primary Care Provider] - 1-2 days
[2017-12-25 17:29] LABS: Anisocytosis Moderate; HCT 33.3 % (34.0-46.0); HGB 9.7 gm/dL (11.4-16.0); Hypochromasia Marked; MCH 19.7 pg (25.0-35.0); MCHC 29.1 g/dL (31.0-37.0); MCV 67.5 fL (80.0-100.0); Microcytosis Marked; Platelet Count 161 k/uL (150-450); Poikilocytosis Moderate; RBC 4.94 m/uL (3.80-5.40)
[2017-12-25 17:39] LABS: ALT 28 U/L (9-52); AST 56 U/L (14-36); Albumin 2.8 g/dL (3.5-5.0); Alkaline Phosphatase 220 U/L (38-126); Amylase <30 U/L (30-110); Anion Gap 10 mmol/L; Blood Urea Nitrogen 25 mg/dL (7-17); Calcium 8.8 mg/dL (8.4-10.2); Carbon Dioxide 20 mmol/L (22-30); Chloride 103 mmol/L (98-107); Glucose 146 mg/dL (74-99); Lipase 160 U/L (23-300); Potassium 4.1 mmol/L (3.5-5.1); Sodium 133 mmol/L (137-145); Total Bilirubin 1.9 mg/dL (0.2-1.3); Total Protein 5.6 g/dL (6.3-8.2)
[2017-12-25 17:51] LABS: Band Neutrophils % 3 %; Basophils # (M) 0.05 k/uL (0-0.2); Monocytes # (M) 0.25 k/uL (0-1.0); Neutrophils % (M) 77 %; Nucleated Red Blood Cells 0 /100 WBC (0-0); Total Cells Counted 100
[2017-12-25 17:52] LABS: Poikilocytosis (M) Present; Polychromasia Present; Target Cells Present; Toxic Granulation Present
--- NOTE | 2017-12-25 18:08 | XR ---
EXAMINATION TYPE: XR abdomen acute w cxr, 4 views DATE OF EXAM: 12/25/2017 COMPARISON: NONE HISTORY: Pain and diarrhea TECHNIQUE: Supine, upright, and left side down lateral decubitus views of the abdomen are obtained. FINDINGS: Chest: Cardiac pacemaker and EKG leads and sternal sutures. The radiograph shows the heart to be righ t-sided - but this is likely due to 180 degree rotated digital imaging issue. There is mild enlargeme nt of the cardiac silhouette. The lungs are clear and the pleural spaces are negative. Skeletal struc tures are unremarkable. Abdomen: Supine and upright views were obtained. There is no pneumoperitoneum. The bowel gas pattern is unremarkable as there is air throughout nondilated small and large bowel. N o sizeable air fluid levels.No mass effects are seen. No unusual calcifications. IMPRESSION: No acute radiographic process.
[2017-12-25] MEDS ORDERED: ENOXAPARIN 60 MG/0.6 ML SYRINGE SQ STA (18:35)
[2017-12-25] MEDS ORDERED: MORPHINE SULFATE/PF 10MG/10ML VL IVP PRN (18:38)
[2017-12-25] MEDS ORDERED: NITROGLYCERIN SL TABS 0.4 MG TAB SUBLINGUAL PRN (18:38)
[2017-12-25] MEDS ORDERED: ALBUTEROL INHALER 60 PUFF/8 GM INHALER INHALATION PRN (18:48)
[2017-12-25] MEDS ORDERED: ALBUTEROL NEBULIZED 2.5 MG/3 ML INHALATION PRN (18:48)
[2017-12-25 23:37] LABS: Creatine Kinase MB 0.8 ng/mL (0.0-2.4)
[2017-12-25 23:39] LABS: Troponin I 0.056 ng/mL (0.000-0.034)
[2017-12-26 05:33] LABS: Appearance,Urine Clear (Clear); Bacteria,Urine Rare /hpf; Bilirubin,Urine Negative (Negative); Blood,Urine Negative (Negative); Color,Urine Yellow; Glucose,Urine (UA) Negative (Negative); Ketones,Urine Negative (Negative); Leukocyte Esterase,Urine Trace (Negative); Nitrite,Urine Negative (Negative); PH, Urine 5.5 (5.0-8.0); Protein,Urine Trace (Negative); Specific Gravity,Urine 1.015 (1.001-1.035); Squamous Epithelial Cell,Urine 1 /hpf (0-4); Urobilinogen,Urine <2.0 mg/dL (<2.0); WBC,Urine 2 /hpf (0-5)
[2017-12-26] MEDS: metroNIDAZOLE 500 MG TAB PO SCH ×4 (07:00→20:39)
[2017-12-26] MEDS: ALLOPURINOL 100 MG TAB PO SCH ×3 (07:01→20:38)
[2017-12-26] MEDS: LATANOPROST 0.005% OPHTH DROPS 2.5 ML BTL RIGHT EYE SCH ×2 (07:01→22:14)
[2017-12-26] MEDS: SYMBICORT 160-4.5 MCG INHALER INHALATION SCH ×2 (07:01→08:16)
[2017-12-26] MEDS: MELATONIN 5 MG TABLET PO SCH ×2 (07:02→20:38)
[2017-12-26] MEDS: CARVEDILOL 3.125 MG TAB PO SCH ×3 (07:02→17:47)
[2017-12-26 07:10] LABS: Cholesterol 191 mg/dL (<200); HDL Cholesterol 26 mg/dL (40-60); LDL Cholesterol,Calculated 127 mg/dL (0-99); Triglycerides 191 mg/dL (<150)
[2017-12-26] MEDS: Acetaminophen-Codeine 300-30mg TAB PO PRN ×2 (07:21→19:27)
[2017-12-26] MEDS: PANTOPRAZOLE 40 MG TABLET PO SCH ×2 (07:21→18:26)
[2017-12-26] MEDS: LEVOTHYROXINE 75 MCG TAB PO SCH (07:21)
[2017-12-26 07:37] LABS: Creatine Kinase MB 1.2 ng/mL (0.0-2.4)
[2017-12-26 07:40] LABS: Troponin I 0.052 ng/mL (0.000-0.034)
[2017-12-26 08:25] LABS: Anisocytosis Moderate; Calcium 8.5 mg/dL (8.4-10.2); HCT 30.6 % (34.0-46.0); HGB 8.9 gm/dL (11.4-16.0); Hypochromasia Marked; MCH 19.9 pg (25.0-35.0); MCV 68.9 fL (80.0-100.0); Magnesium 2.2 mg/dL (1.6-2.3); Mean Platelet Volume 8.9; Microcytosis Marked; Platelet Count 140 k/uL (150-450); Poikilocytosis Slight; Potassium 3.8 mmol/L (3.5-5.1); RBC 4.44 m/uL (3.80-5.40)
[2017-12-26] MEDS: FUROSEMIDE 20 MG TAB PO SCH ×2 (08:39→17:47)
[2017-12-26] MEDS: CHOLECALCIFEROL 1,000 UNIT TAB PO SCH (08:42)
[2017-12-26] MEDS: SPIRONOLACTONE 25 MG TAB PO SCH (08:42)
[2017-12-26] MEDS ORDERED: NON-FORMULARY DRUG (Ubidecarenone [Co Q-10] 100 MG) PO SCH (09:00)
[2017-12-26 11:50] LABS: Glucose,Whole Blood 216 mg/dL (75-99)
--- NOTE | 2017-12-26 11:57 | CONS ---
CONSULTATION CHIEF COMPLAINT: Fatigue, tiredness and not feeling well. HISTORY OF PRESENT ILLNESS: Libertad is an 87-year-old lady who comes in complaining of diarrhea and lower abdominal discomfort for the last several days. For unclear reasons in the ER, they did troponins on her which came back slightly elevated due to which they admitted her to the hospital. She does not have chest pain. There is history of GI bleed and pulmonary embolism and has a Briseyda filter in place. The patient's history is also significant for prior coronary artery disease, chronic atrial fibrillation, prior bypass surgery and a pacemaker. At the time of my evaluation this morning, patient appears comfortable at rest and is free of significant symptoms. She is being hydrated with significant improvement in her symptoms. MEDICATIONS: At home included: Aldactone, Protonix, melatonin, Antivert, Synthroid, Levemir, Lasix, Coreg, Symbicort, allopurinol, Ventolin. ALLERGIES: ALLERGIC TO ASPIRIN AND ANTICOAGULANTS ALONG WITH CELEBREX. FAMILY HISTORY: Negative for premature coronary artery disease. SOCIAL HISTORY: Negative for current smoking or history of drug abuse. REVIEW OF SYSTEMS: HEENT is significant for a impaired vision. CARDIAC: As described above. RESPIRATORY: Negative. GI as described above. Genitourinary negative. Allergy negative. Hematological: Negative. Skin negative. Musculoskeletal significant for arthritis. Psychosocial negative. Endocrine negative, Derm: Negative. Neurological negative. Rest of the systems review is not relevant. PHYSICAL EXAM: Patient is comfortable at rest. Afebrile. Heart rate is 79 beats per minute, irregular. Blood pressure is 110/50, respiratory rate is 18, O2 sat is 95%. There is no jugular venous distention. Carotid upstroke is diminished. There is no bruit. Chest exam reveals good air entry bilaterally. Heart exam reveals first and second heart sounds. No gallop. Has a systolic murmur at the left lower sternal border. There is an ejection systolic murmur in the aortic area and a systolic murmur at the apex. Abdomen is soft. Examination of extremities did not reveal any edema. Peripheral pulses are palpable. The patient had an echo in November that showed normal LV systolic function. Moderate aortic stenosis, severe mitral regurgitation and severe pulmonary hypertension. EKG this admission showed atrial fibrillation with nonspecific ST-T wave changes. LABS: Labs show a hemoglobin of 8.9 potassium is 3.8. Troponin is in the lanza zone at 0.05, 0.05, 05 with an elevated creatinine of 1.2. ASSESSMENT: 1. Elevated troponin probably related to renal insufficiency. 2. Diarrhea, probably related to recent viral infection. 3. Coronary artery disease status post coronary artery bypass grafting. 4. Chronic atrial fibrillation. 5. Aortic stenosis. 6. Mitral regurgitation. 7. Sick sinus syndrome, status post permanent pacemaker. PLAN: 1. The patient does not require further evaluation for the elevated troponin. 2. She is not a candidate for anticoagulation for atrial fibrillation because of history of gastrointestinal bleed. 3. She has extensive valvular heart diseases but not does not need any intervention. Thank you for allowing us to participate in this pleasant lady. We are going to see her on an as-needed basis at this time. MMODL / IJN: [id number] /
[2017-12-26] MEDS: INSULIN ASPART 100 UNIT/ML 1 ML 10 ML VIAL SQ SCH ×3 (12:02→20:38)
[2017-12-26] MEDS: CYANOCOBALAMIN 500 MCG TAB PO SCH (12:10)
[2017-12-26] MEDS ORDERED: SODIUM CHLORIDE 0.9% 1,000 ML IV SCH (13:15)
--- NOTE | 2017-12-26 13:57 | HP ---
HISTORY AND PHYSICAL DATE OF ADMISSION: 12/25/2017 PRESENTING COMPLAINT: Weak, tired, diarrhea. HISTORY OF PRESENTING COMPLAINT: This is a pleasant 87-year-old patient of visiting physician, Dr. Amor. Lives by herself. Uses a walker. Rather extensive medical history. Chronic stable medical conditions include coronary artery disease, congestive heart failure, diabetes type 2, hypertension, osteoarthritis, hypothyroid, gout. Patient 5 days ago not feeling well, started having 1 or 2 loose stools, abdominal discomfort. No nausea, vomiting, tired, rundown, decreased appetite, not feeling well. Hence, decided to present to the ER. There was no shortness of breath. No chest pain, admitted for the same. Because there was some troponin leak, patient is admitted to the cardiology floor to get a Cardiology opinion. Patient's last diarrhea was over 24 hours ago. Patient did tolerate a light diet this morning. Still feeling tired, run down. REVIEW OF SYSTEMS: CONSTITUTIONAL: Weak and tired. HEENT: None. RESPIRATORY: None. CARDIOVASCULAR: None. GASTROINTESTINAL: As above. GENITOURINARY: None. MUSCULOSKELETAL: Arthritic pain in different joints. DERMATOLOGICAL: None. HEMATOLOGICAL: None. LYMPHATICS: None. PSYCHIATRY: None. NEUROLOGICAL: None. 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 PAST SURGICAL HISTORY: Appendectomy, bowel resection, breast surgery, cardiac valve replacement, cholecystectomy, coronary artery bypass, pacemaker, tonsillectomy, aortic valve replacement, tissue type 1 vessel coronary bypass, Vi[place] filter, polypectomy. Left eye is damaged with optic nerve and moving blind, skin cancer removed from the head and forehead, permanent pacemaker. PSYCH: History of depression. SOCIAL HISTORY: The patient is a , lives alone, has a walker. Patient smoked for about 22 years, 1 or 2 packs a day stopped in 2001. No alcohol. FAMILY HISTORY: Cancer, type unknown. HOME MEDICATIONS: 1. CO Q-10 one hundred mg p.o. daily. 2. Aldactone 25 mg p.o. daily. 3. Protonix 40 mg p.o. b.i.d. 4. Melatonin 5 mg q.h.s. 5. Antivert 12.5 p.o. b.i.d. p.r.n. 6. Synthroid 75 mcg p.o. daily. 7. Levemir 35 units with supper. 8. Humalog per scale. 9. Lasix 60 mg p.o. b.i.d. 10.Vitamin B12 five hundred mcg p.o. daily. 11.Vitamin D3 one thousand units p.o. daily. 12.Coreg 3.125 p.o. b.i.d. 13.Symbicort 160/4.5 two puffs b.i.d. 14.Lumigan 1 drop right eye q.h.s. 15.Allopurinol 200 mg b.i.d. 16.Ventolin 2.5 q.6 p.r.n. 17.Tylenol 3 one tablet q.6 p.r.n. ALLERGIES: To ASPIRIN, BEE POLLEN, CELEBREX, BLOOD THINNERS, URIC ACID. On examination, vital signs on presentation, temperature 100.8, pulse 98, respiratory 20, blood pressure 130/67, pulse ox 98% on room air. GENERAL APPEARANCE: Well built, 30.4, sitting up, very tired-appearing. EYES: Pupils equal, conjunctivae normal. HEENT: Oral cavity dry. NECK: JVD not raised, mass not palpable. RESPIRATORY: Effort normal. LUNGS: Fair entry. CARDIOVASCULAR: First and second sounds are normal. No edema. ABDOMEN: Soft, nontender. Liver and spleen not palpable. LYMPHATIC: No lymph node palpable in neck or axillae. PSYCHIATRY: Alert and oriented x3. Mood and affect normal. NEUROLOGICAL: Pupils equal, cranial nerves grossly intact. Power and sensation grossly intact. MUSCULOSKELETAL: Evidence of osteoarthritis, especially hands and knees. INVESTIGATIONS: White count 5, hemoglobin 9.7, platelets 161. Potassium 4.1, BUN 25, creatinine 1.20, troponin 0.053, 0.056. EKG shows atrial fibrillation, rate controlled in the right bundle branch block pattern. ASSESSMENT: 1. Acute gastroenteritis, likely viral with no bowel movement in the last 24 hours. 2. Clinically dehydration in this elderly patient with multiple medical problems, making her extremely weak and tired. 3. Chronic congestive heart failure from diastolic dysfunction, ejection fraction 55% to 60%. 4. Hypertensive heart disease. 5. Moderate aortic stenosis, nonrheumatic. 6. Severe mitral regurgitation, nonrheumatic. 7. Moderate mitral stenosis, nonrheumatic. 8. Moderate to severe pulmonary hypertension, secondary to congestive heart failure. 9. Moderate to severe tricuspid regurgitation, nonrheumatic. 10.Diabetes mellitus type 2, chronically on insulin. 11.Essential hypertension. 12.Primary osteoarthritis in multiple joints, bilateral. 13.Hypothyroid. 14.Blind in the left eye. 15.Coronary artery disease, prior history of coronary artery bypass. 16.History of [place] filter. 17.Chronic gait dysfunction, uses a walker. 18.Troponin leak likely due to hemodynamic mismatch, this is not acute coronary syndrome. PLAN: Cardiology was consulted. Patient will be gently hydrated. Patient has some metabolic acidosis. Will give some sodium bicarb. Will have social science teacher involved. Care was discussed with the patient. MMODL / IJN: [id number] /
[2017-12-26 17:47] LABS: Glucose,Whole Blood 242 mg/dL (75-99)
[2017-12-26 18:33] LABS: Hemoglobin A1C 7.4 % (4.0-6.0)
[2017-12-26] MEDS: cefTRIAXone IN SWFI 2,000 MG/20 ML SYRINGE IVP SCH (19:28)
[2017-12-26 20:39] LABS: Glucose,Whole Blood 187 mg/dL (75-99)
[2017-12-26] MEDS: MECLIZINE 12.5 MG TAB PO PRN (20:39)
[2017-12-26] MEDS: INSULIN DETEMIR 100 UNIT/ML 10 ML VIAL SQ SCH (20:56)
[2017-12-26] MEDS ORDERED: VANCOMYCIN IV PER PHARMACY 1 EACH MISC MISCELLANE PRN (21:35)
[2017-12-26] MEDS ORDERED: VANCOMYCIN 1,750 MG in SODIUM CHLORIDE 0.9% 250 ML IVPB ONE (22:15)
[2017-12-27] MEDS: SYMBICORT 160-4.5 MCG INHALER INHALATION SCH ×3 (00:12→20:07)
[2017-12-27 07:17] LABS: Glucose,Whole Blood 64 mg/dL (75-99)
[2017-12-27 07:33] LABS: Calcium 8.8 mg/dL (8.4-10.2); Potassium 4.2 mmol/L (3.5-5.1)
[2017-12-27] MEDS: INSULIN ASPART 100 UNIT/ML 1 ML 10 ML VIAL SQ SCH ×4 (08:12→20:51)
[2017-12-27 08:22] LABS: Glucose,Whole Blood 72 mg/dL (75-99)
[2017-12-27 08:22] LABS: Glucose,Whole Blood 61 mg/dL (75-99)
[2017-12-27] MEDS: PANTOPRAZOLE 40 MG TABLET PO SCH ×2 (09:02→19:00)
[2017-12-27] MEDS: MECLIZINE 12.5 MG TAB PO PRN ×2 (09:02→20:12)
[2017-12-27] MEDS: ALLOPURINOL 100 MG TAB PO SCH ×2 (09:02→20:12)
[2017-12-27] MEDS: SPIRONOLACTONE 25 MG TAB PO SCH (09:03)
[2017-12-27] MEDS: metroNIDAZOLE 500 MG TAB PO SCH ×3 (09:03→20:12)
[2017-12-27] MEDS: LEVOTHYROXINE 75 MCG TAB PO SCH (09:03)
[2017-12-27] MEDS: CARVEDILOL 3.125 MG TAB PO SCH ×2 (09:03→17:38)
[2017-12-27] MEDS: CYANOCOBALAMIN 500 MCG TAB PO SCH (09:03)
[2017-12-27] MEDS: FUROSEMIDE 20 MG TAB PO SCH ×2 (09:04→17:38)
[2017-12-27] MEDS: CHOLECALCIFEROL 1,000 UNIT TAB PO SCH (09:04)
[2017-12-27] MEDS: Acetaminophen-Codeine 300-30mg TAB PO PRN ×3 (09:12→23:28)
[2017-12-27 12:56] LABS: Glucose,Whole Blood 179 mg/dL (75-99)
[2017-12-27] MEDS ORDERED: VANCOMYCIN 1,500 MG in SODIUM CHLORIDE 0.9% 250 ML IVPB SCH (16:00)
[2017-12-27 17:00] LABS: Glucose,Whole Blood 200 mg/dL (75-99)
[2017-12-27] MEDS: cefTRIAXone IN SWFI 2,000 MG/20 ML SYRINGE IVP SCH ×3 (17:38→20:55)
[2017-12-27] MEDS: INSULIN DETEMIR 100 UNIT/ML 10 ML VIAL SQ SCH (17:46)
[2017-12-27] MEDS: MELATONIN 5 MG TABLET PO SCH (20:12)
[2017-12-27] MEDS: LATANOPROST 0.005% OPHTH DROPS 2.5 ML BTL RIGHT EYE SCH (20:12)
[2017-12-27 20:57] LABS: Glucose,Whole Blood 163 mg/dL (75-99)
--- NOTE | 2017-12-28 00:21 | PN ---
PROGRESS NOTE DATE OF SERVICE: 12/27/2017. PRESENTING COMPLAINT: Weak, tired. INTERVAL HISTORY: The patient presented with acute gastroenteritis symptoms, which has improved. The patient does feel a bit tired, but the patient's blood cultures came back showing gram- positive cocci for which patient was started on vancomycin. REVIEW OF SYSTEMS: Done for constitutional, cardiovascular, GI, pulmonary; relevant findings as above. CURRENT MEDICATIONS: Include IV vancomycin. PHYSICAL EXAMINATION: Afebrile, pulse 82, respiration 16, blood pressure 98/50, pulse ox 98% on room air. GENERAL APPEARANCE: Sitting up, tired appearing. EYES: Pupils equal. Conjunctivae are normal. HEENT: External appearance of nose and ears normal. Oral cavity normal. NECK: JVD not raised. Mass not palpable. Respiratory effort . LUNGS: Fair air entry. CARDIOVASCULAR: First and seconds sounds, no edema. ABDOMEN: Soft, nontender. Liver and spleen not palpable. PSYCHIATRY: Alert and oriented x3. Mood and affect normal. INVESTIGATIONS: Potassium 4.2, BUN 28, creatinine 1.20. ASSESSMENT: 1. Acute gastritis, likely viral, improved. 2. Clinical dehydration present on admission. 3. Positive blood cultures showing gram-positive cocci in cultures. Await further input, although the patient has been rather been afebrile, overall feeling better. 4. Chronic congestive heart failure from diastolic dysfunction. Ejection fraction 55% to 60%. 5. Hypertensive heart disease. 6. Moderate aortic stenosis, severe mitral regurgitation, moderate mitral stenosis, [id number] pulmonary hypertension, severe secondary to congestive heart failure. 7. [id number] tricuspid regurgitation, nonrheumatic. 8. Diabetes mellitus type 2, chronically on insulin. 9. Essential hypertension. 10.Primary osteoarthritis in multiple joints bilateral. 11.Hypothyroid. 12.Blind in the left eye. 13.Coronary artery disease, prior history of coronary bypass. 14.History of [place] filter. 15.Chronic gait dysfunction, uses a walker. 16.Troponin leak due to hemodynamic mismatch, not acute coronary syndrome. PLAN: Patient is started on IV vancomycin. We will see how the patient does. The patient otherwise has no fever. MMODL / IJN: [id number] /
[2017-12-28] MEDS: LEVOTHYROXINE 75 MCG TAB PO SCH (05:42)
[2017-12-28 06:48] LABS: Glucose,Whole Blood 186 mg/dL (75-99)
[2017-12-28] MEDS: Acetaminophen-Codeine 300-30mg TAB PO PRN ×2 (06:56→16:20)
[2017-12-28] MEDS: INSULIN ASPART 100 UNIT/ML 1 ML 10 ML VIAL SQ SCH ×4 (07:36→21:00)
[2017-12-28] MEDS: CARVEDILOL 3.125 MG TAB PO SCH ×2 (07:36→17:53)
[2017-12-28] MEDS: PANTOPRAZOLE 40 MG TABLET PO SCH ×2 (07:36→17:53)
[2017-12-28 07:48] LABS: Calcium 8.4 mg/dL (8.4-10.2); Potassium 4.6 mmol/L (3.5-5.1)
[2017-12-28] MEDS: ALLOPURINOL 100 MG TAB PO SCH ×2 (08:19→20:54)
[2017-12-28] MEDS: MECLIZINE 12.5 MG TAB PO PRN (08:19)
[2017-12-28] MEDS: CYANOCOBALAMIN 500 MCG TAB PO SCH (08:19)
[2017-12-28] MEDS: metroNIDAZOLE 500 MG TAB PO SCH ×2 (08:19→16:21)
[2017-12-28] MEDS: CHOLECALCIFEROL 1,000 UNIT TAB PO SCH (08:19)
[2017-12-28] MEDS: SPIRONOLACTONE 25 MG TAB PO SCH (08:20)
[2017-12-28] MEDS: FUROSEMIDE 20 MG TAB PO SCH ×2 (08:20→16:21)
[2017-12-28] MEDS: SYMBICORT 160-4.5 MCG INHALER INHALATION SCH ×2 (08:56→21:46)
[2017-12-28 11:26] LABS: Glucose,Whole Blood 179 mg/dL (75-99)
[2017-12-28 17:33] LABS: Glucose,Whole Blood 145 mg/dL (75-99)
[2017-12-28] MEDS: CHOLESTYRAMINE (WITH SUGAR) 4 GM PACKET PO SCH (17:54)
[2017-12-28] MEDS: INSULIN DETEMIR 100 UNIT/ML 10 ML VIAL SQ SCH (18:26)
[2017-12-28 20:05] LABS: Glucose,Whole Blood 136 mg/dL (75-99)
[2017-12-28] MEDS ORDERED: SODIUM CHLORIDE 0.9% 1,000 ML IV SCH (20:30)
[2017-12-28] MEDS: LATANOPROST 0.005% OPHTH DROPS 2.5 ML BTL RIGHT EYE SCH (20:54)
[2017-12-28] MEDS: cefTRIAXone IN SWFI 2,000 MG/20 ML SYRINGE IVP SCH (20:54)
[2017-12-28] MEDS: MELATONIN 5 MG TABLET PO SCH (20:55)
--- NOTE | 2017-12-28 22:56 | PN ---
PROGRESS NOTE DATE OF SERVICE: 12/28/17 PRESENTING COMPLAINT: Tired. INTERVAL HISTORY: This patient presented with acute gastroenteritis. Blood cultures did come back positive, now felt to be contaminant. Overall, patient is feeling better. Did tolerate some diet. REVIEW OF SYSTEMS: Done for constitutional, cardiovascular, GI, pulmonary and findings as above. CURRENT MEDICATIONS: Reviewed. EXAMINATION: Afebrile, pulse 75, respiration 16, blood pressure 118/56, pulse ox 99%. GENERAL: Sitting up, looking a bit better. Eyes pupils equal. Conjunctivae are normal. HEENT external appearance of nose and ears normal. Oral cavity normal. Neck: Jugular venous distention not raised. . Mass not palpable. Respiratory effort lungs fair entry. CARDIOVASCULAR: First and second sounds normal. No edema. ABDOMEN: Soft, nontender. Liver and spleen not palpable. Psychiatry: Alert and oriented x3. Mood and affect normal. INVESTIGATIONS: Potassium 4.6, chloride 110, BUN 21, creatinine 1.18. Accu-Cheks noted. Blood cultures showing contaminant. ASSESSMENT: 1. Acute gastroenteritis, likely viral. 2. Clinical dehydration on presentation. 3. Positive blood cultures now felt to be a contaminant. 4. Chronic congestive heart failure from diastolic dysfunction. Ejection fraction 55- 60% from underlying hypertensive heart disease. 5. Moderate aortic stenosis, severe mitral regurgitation, moderate mitral stenosis, moderate to severe tricuspid regurgitation all nonrheumatic. 6. Moderate to severe sepsis secondary pulmonary hypertension secondary to CHF. 7. Diabetes mellitus type 2, chronically on insulin. 8. Essential hypertension. 9. Primary osteoarthritis multiple joints bilateral. 10.Hypothyroid. 11.Blind in the left eye. 12.Coronary artery disease with prior history of coronary bypass. 13.History of [place] filter. 14.Chronic gait dysfunction uses a walker. 15.Troponin leak due to hemodynamic mismatch. PLAN: Vancomycin will be discontinued. Will gently hydrate the patient overnight. We will stop the patient's Aldactone and also cut back the dose of Lasix. Care was discussed with the patient. Hopefully can be discharged tomorrow. MMODL / IJN: [id number] /
--- NOTE | 2017-12-28 23:47 | CONS ---
CONSULTATION DATE OF CONSULTATION: 12/28/2017. REASON FOR CONSULTATION: 1. Positive blood culture. 2. Gastroenteritis viral versus bacterial. HISTORY OF PRESENT ILLNESS: The patient is an 87-year-old female, who presented to the [facility] ER on 12/26/2027 with chief complaints of diarrhea that has been going on since Thursday prior to presentation to hospital. The patient did have multiple loose stools with mucus but no blood. He did have a crampy lower abdominal pain more of colicky in nature same duration 3 to 01/12, and no radiation. The patient did have associated nauseated but no vomiting. The patient did not have any family member with the same illnesses and denies having any antibiotic use prior to her diarrhea starting. The patient on arrival to the ER did have acute abdominal series which was nonconclusive. The patient did have a low-grade fever of 100.9. She did have blood cultures drawn. UA was significant positive with only trace leukocyte esterases. She did have a stool for C. difficile, which came back negative. She has been treated with Rocephin. Blood cultures were done. Blood cultures coming back positive gram-positive cocci. Hence, infectious disease was consulted for further recommendation regarding antibiotic therapy. The patient admits to having diarrhea about 3 loose stools per day. No blood or mucus in it. REVIEW OF SYSTEMS: Constitutional: Positive for weakness and low-grade fever. EYES: No complaint. ENT no complaint. Respiratory no complaint. Cardiovascular no complaint. Genitourinary no complaint. Gastrointestinal: as per HPI. Musculoskeletal no complaint. Integumentary: No complaint. Psychological no complaint. Endocrine no complaint. Neurological no complaint. PAST MEDICAL HISTORY: History of coronary artery disease, heart failure, diabetes mellitus, hypertension, osteoarthritis, pulmonary: Positive sleep apnea, hypothyroidism, gout, chronic pain, diverticular disease, ovarian cyst, tracheobronchitis, and skin cancer. PAST SURGICAL HISTORY: Appendectomy, bowel resection, breast surgery, aortic valve placement, cholecystectomy, coronary artery bypass grafting, heart catheterization, hysterectomy, pacemaker placement and tonsillectomy. SOCIAL HISTORY: Former smoker. No drinking or drug use. FAMILY HISTORY: Father history of alcoholism, mother with history of diabetes, dementia and coronary artery disease. ALLERGIES: TO ASPIRIN, CELEBREX, . MEDICATIONS: Medication include the patient is currently on: Tylenol, Ventolin, Zyloprim, Symbicort, Coreg, Rocephin 2 g daily, vitamin D3 and B12, Lasix, NovoLog, Levemir, Synthroid, Antivert, melatonin, Flagyl, morphine sulfate, Protonix, Aldactone and vancomycin pharmacy to dose. EXAMINATION: Blood pressure 124/50 with a pulse of 70, temperature 97.3. She is 95% on room air. General description is an elderly female up in the bed in no distress with no tachypnea, or accessory muscles of respiration use. HEENT: Shows slight pallor. No scleral icterus. Oral mucosa is dry. No pharyngeal erythema. No thrush. Neck trachea is central. No thyromegaly. Lungs unlabored breathing with decreased breath sounds in the bases. No wheeze. Heart S1, S2. Regular rate and rhythm. No murmur. The left chest wall pacemaker site looks clean with no erythema. ABDOMEN: Soft. Mild tenderness in the left lower quadrant area. No guarding. No rigidity. No organomegaly. EXTREMITIES: No edema of the feet. Skin examination no rash or mass palpable. Neurological: Patient is awake, alert, oriented. Mood and affect normal. LABS: Hemoglobin 8.8, white count 4.0, BUN of 21, creatinine is 1.18. Electrolytes has been normal. Urine was negative. Stool for C difficile was negative. The patient did have an acute abdominal series. No acute radiographic process. DIAGNOSTIC IMPRESSION AND PLAN: 1. Patient who do have admitted t6o the hospital mostly with enteritis symptoms with significant diarrhea, questionably viral etiology. Patient with exposure to antibiotics. Stool for C difficile has been negative. Currently the patient is low for bacterial infection. Recommend symptomatic treatment only. 2. Patient with a positive blood cultures with coagulase negative Staph, likely skin contamination as the patient has no clinical disease to go along with it. The only hardware she has in her body is the pacemaker and the pacemaker site looks clean. PLAN: 1. Discontinue the vancomycin. 2. Discontinue Rocephin as low risk factor for a bacterial enteritis. 3. We will add Questran for symptomatic relief. 4. Depending on her clinical condition, we will adjust her medications further if needed. Thank you for this consultation. Will follow the patient along with you. MMODL / IJN: [id number] /
[2017-12-29] MEDS: MECLIZINE 12.5 MG TAB PO PRN (02:13)
[2017-12-29] MEDS: Acetaminophen-Codeine 300-30mg TAB PO PRN ×2 (02:13→09:05)
[2017-12-29] MEDS: LEVOTHYROXINE 75 MCG TAB PO SCH (05:51)
[2017-12-29] MEDS: SYMBICORT 160-4.5 MCG INHALER INHALATION SCH (07:05)
[2017-12-29 07:12] LABS: Glucose,Whole Blood 149 mg/dL (75-99)
[2017-12-29 07:56] LABS: Calcium 8.6 mg/dL (8.4-10.2); Potassium 5.4 mmol/L (3.5-5.1)
[2017-12-29] MEDS: INSULIN ASPART 100 UNIT/ML 1 ML 10 ML VIAL SQ SCH ×2 (08:06→13:22)
[2017-12-29] MEDS: CHOLESTYRAMINE (WITH SUGAR) 4 GM PACKET PO SCH (08:09)
[2017-12-29] MEDS: PANTOPRAZOLE 40 MG TABLET PO SCH (08:09)
[2017-12-29] MEDS: CYANOCOBALAMIN 500 MCG TAB PO SCH (08:10)
[2017-12-29] MEDS: ALLOPURINOL 100 MG TAB PO SCH (08:10)
[2017-12-29] MEDS: CARVEDILOL 3.125 MG TAB PO SCH (08:10)
[2017-12-29] MEDS: CHOLECALCIFEROL 1,000 UNIT TAB PO SCH (08:10)
[2017-12-29] MEDS ORDERED: FUROSEMIDE 20 MG TAB PO SCH (09:00)
[2017-12-29 11:24] LABS: Glucose,Whole Blood 174 mg/dL (75-99)
[2017-12-29 15:08] VITALS: BP 141/73; PULSE 77; RESP 20; TEMP 97.5
--- NOTE | 2017-12-29 17:16 | PN ---
PROGRESS NOTE DATE OF SERVICE: 12/29/2017 REASON FOR FOLLOWUP: 1. Positive blood culture, likely contamination. 2. Diarrhea, likely viral gastroenteritis. INTERVAL HISTORY: The patient was seen on rounds this morning. The patient has been afebrile. She is breathing comfortably. Denies having any chest pain or shortness of breath, cough, abdominal pain. Still complaining of diarrhea. However, the nurse aide did mention she did have solid bowel movement and not runny stool. PHYSICAL EXAMINATION: Blood pressure 141/73 with a pulse of 77, temperature 97.5. She is 97% on room air. General description is an elderly female lying in bed in no distress. RESPIRATORY SYSTEM: Unlabored breathing. Clear to auscultation anteriorly. HEART: S1, S2. Regular rate and rhythm. ABDOMEN: Soft. No tenderness. LABS: BUN of 18, creatinine 1.11. DIAGNOSTIC IMPRESSION AND PLAN: 1. Patient with a positive blood culture with Staphylococcus epidermidis, likely contamination. No need for therapy for the same. 2. Patient with acute diarrhea, likely viral; responding to the Questran, and that will be continued for another 2 days. No need for any systemic antibiotic. Continue supportive care. MMODL / IJN: [id number] /
--- NOTE | 2017-12-31 22:00 | DS ---
DISCHARGE SUMMARY DATE OF ADMISSION: December 26, 2017. DATE OF DISCHARGE: December 29, 2017. FINAL DIAGNOSES: 1. Acute gastroenteritis, likely viral present on admission. 2. Dehydration present on admission. 3. Positive blood cultures, which are contaminant. 4. Chronic congestive heart failure from diastolic dysfunction. Ejection fraction 55- 60% from hypertensive heart disease. 5. Moderate aortic stenosis, severe mitral regurgitation, moderate mitral stenosis, moderate to severe tricuspid regurgitation. All nonrheumatic. 6. Moderate to severe secondary pulmonary hypertension secondary to congestive heart failure. 7. Diabetes mellitus type 2, chronically on insulin. 8. Essential hypertension. 9. Primary osteoarthritis multiple joints bilateral. 10.Hypothyroid. 11.Blind in the left eye. 12.Coronary artery disease with prior history of coronary bypass. 13.History of [place] filter. 14.Chronic gait dysfunction uses a walker. 15.Troponin leak due to hemodynamic mismatch. CONSULTATION: Dr. Janel Joseph from Cardiology, Dr. Priest from Infectious Disease. HOSPITAL COURSE: This patient presented with nausea, vomiting, diarrhea, felt to be gastroenteritis. Initially cultures were felt to be positive but came back to be as contaminant. On the day of discharge I did speak at length with the patient that at the long-term she will need more support and maybe should have a family member stay with her or she should stay with a family member. youth worker is involved in discharge planning. DISCHARGE MEDICATIONS: 1. Lumigan 0.01% 1 drop to right eye q.h.s. 2. Coreg 3.125 p.o. b.i.d. 3. Allopurinol 200 mg b.i.d. 4. Vitamin D3 1000 units p.o. daily. 5. Vitamin B12 500 mcg p.o. daily. 6. CO Q 10 100 mg p.o. daily. 7. Ventolin HFA 1 or 2 puffs q.6h p.r.n. 8. Ventolin 2.5 mg q.6 p.r.n. 9. Synthroid 75 mcg p.o. daily. 10.Melatonin 5 mg q.h.s. 11.Symbicort 160/4.5, 2 puffs b.i.d. 12.Protonix 40 mg a.c. b.i.d. 13.Humalog 5 units a.c. t.i.d. p.r.n. 14.Metamucil 6 g p.o. daily. 15.Tylenol 3 one tab q.6h p.r.n. 16.Lasix 60 mg b.i.d. 17.NovoLog per scale. 18.Levemir 28 units subcu with supper. 19.Sodium bicarb 650 mg p.o. t.i.d. DISPOSITION: Home with family support. FOLLOWUP: Follow up with Dr. Amor in 3 days. BMP in 3 days. PHYSICAL EXAMINATION: On examination: Lungs decreased breath sounds. Cardiovascular 1st and 2nd sounds normal. Psych AO x3. Patient also given a handout for low-potassium diet. Copy to visiting physician Dr. Amor. MMHOSSEINL / IJN: [id number] /
== END 2017-12-29 16:35 | disposition home health service (06) | DRG 392 ==
LOC: EC 16:19 → 6SEL 18:39 → INTOOBSV 18:39 → 6SEL 12-26 00:07 → OBSVTOIN 12-26 14:16 → 3SUR 12-26 15:58
PROVIDERS: ADMIT Hospitalist; ATTEND Hospitalist
DX: A08.4 Viral intestinal infection, unspecified (principal); E87.2 Acidosis; I11.0 Hypertensive heart disease with heart failure; E86.0 Dehydration; I48.2 Chronic atrial fibrillation; I27.29 Other secondary pulmonary hypertension; I49.5 Sick sinus syndrome; I50.32 Chronic diastolic (congestive) heart failure; I08.3 Combined rheumatic disorders of mitral, aortic and tricuspid valves; E03.9 Hypothyroidism, unspecified; E11.9 Type 2 diabetes mellitus without complications; M15.9 Polyosteoarthritis, unspecified; H54.62 Unqualified visual loss, left eye, normal vision right eye; I25.10 Atherosclerotic heart disease of native coronary artery without angina pectoris; M10.9 Gout, unspecified; H40.9 Unspecified glaucoma; H35.30 Unspecified macular degeneration; G47.30 Sleep apnea, unspecified; R26.9 Unspecified abnormalities of gait and mobility; I45.10 Unspecified right bundle-branch block; Z88.8 Allergy status to other drugs, medicaments and biological substances; Z95.1 Presence of aortocoronary bypass graft; Z91.030 Bee allergy status; Z79.899 Other long term (current) drug therapy; Z79.4 Long term (current) use of insulin; Z87.891 Personal history of nicotine dependence; Z86.59 Personal history of other mental and behavioral disorders; Z90.49 Acquired absence of other specified parts of digestive tract; Z95.2 Presence of prosthetic heart valve; Z90.89 Acquired absence of other organs; Z95.0 Presence of cardiac pacemaker; Z85.828 Personal history of other malignant neoplasm of skin; Z86.711 Personal history of pulmonary embolism; Z81.1 Family history of alcohol abuse and dependence; Z83.3 Family history of diabetes mellitus; Z82.49 Family history of ischemic heart disease and other diseases of the circulatory system; Z81.8 Family history of other mental and behavioral disorders; Z90.710 Acquired absence of both cervix and uterus; Z79.51 Long term (current) use of inhaled steroids; Z95.828 Presence of other vascular implants and grafts
CPT/HCPCS: 36415; 74022; 80048; 80053; 80061; 81001; 82150; 82550; 82553; 83036; 83605; 83690; 83735; 84484; 85025; 85027; 87040; 87045; 87046; 87077; 87086; 87186; 87324; 93005; 94640; 96361; 96372; 96374; 96375; 99285

== ENCOUNTER 2019-05-21 16:12 | Inpatient (IN) | payer MEDICARE ==
--- NOTE | 2019-05-21 17:07 | ED ---
General Adult HPI - General Chief complaint: Shortness of Breath Stated complaint: MARIA D Time Seen by Provider: 05/21/19 16:24 Source: patient, EMS Mode of arrival: EMS Limitations: no limitations - History of Present Illness Initial comments: Dictation was produced using [employer] dictation software. please excuse any grammatical, word or spelling errors. Chief Complaint: 88-year-old female presents with chief complaint of shortness of breath. History of Present Illness: This is an 80-year-old female she has past medical h istory of heart failure, atrial fibrillation diabetes. She presents today with shortness of breath since yesterday. Patient is multiple comorbidities. She has this history of shortness of breath. She states that, in intermittent episodes. Today she felt like her shortness of breath particularly go away. He normally last for less than 1 day. She states her symptoms started yesterday she still considerably short of breath today. Patient denies any coughing. Denies any fever, chills or night sweats. Patient denies any chest pain. She feels slightly worse when lying flat. Eyes any lower extremity symptoms. She has history of IVC filter. Patient is not on any anticoagulation medications given that she had significant GI bleed in the past. The ROS documented in this emergency department record has been reviewed and confirmed by me. Those systems with pertinent positive or negative responses have been documented in the HPI. All other systems are other negative and/or noncontributory. PHYSICAL EXAM: General Impression: Alert and oriented x3, not in acute distress HEENT: Normocephalic atraumatic, extra-ocular movements intact, pupils equal and reactive to light bilaterally, mucous membranes moist. Cardiovascular: Heart regular rate and rhythm, S1&S2 audible, no murmurs, rubs or gallops Chest: Lungs clear to auscultation bilaterally, no rhonchi, no wheeze, no rales Abdomen: Bowel sounds present, abdomen soft, non-tender, non-distended, no organomegaly Musculoskeletal: Pulses present and equal in all extremities, no peripheral edema Motor: no focal deficits noted Neurological: CN II-XII grossly intact, no focal motor or sensory deficits noted Skin: Intact with no visualized rashes Psych: Normal affect and mood ED course:-year-old female presents with chief complaint of shortness of breath. All signs upon arrival are within acceptable limits. Patient does not show any significant signs of respiratory distress she is able to complete a sentence speaking. Medications were reviewed. Lungs are clear to auscultation.Laboratory evaluation obtained. CBC, coag panel unremarkable. Metabolic panel shows slight elevation in renal markers which appears to be patient's baseline. Troponin is 0.033 likely secondary to troponin leak. Patient's brain atretic peptide is 5800. Chest x-ray shows findings suspicious for congestive heart failure. Over there is no findings of overt heart failure. No other acute processes noted. Patient some Lasix. She states she is too short winded to go home. She prefers to be admitted to observation for gentle diuresis. Click or presentation is consistent with congestive heart failure. More history was obtained from patient. She's been eating a lot of fast food recently. She is not showing any respiratory distress at rest however when ambulated bathroom she was tachypneic. EKG interpretation: Ventricular rate 87, demand pacemaker, care is 136, QTC 476. No AL prolongation, no QTC prolongation, no ST or T-wave changes noted. EKG compared to reports 20 04/23/2018 showing no changes. Overall, this EKG is unremarkable - Related Data Home Medications Medication Instructions Recorded Confirmed Carvedilol [Coreg] 3.125 mg PO BID 03/25/14 05/21/19 Allopurinol 100 mg PO BID 03/07/15 05/21/19 Levothyroxine Sodium [Synthroid] 75 mcg PO DAILY 11/03/17 05/21/19 Insulin Lispro [humaLOG Kwikpen] 5 unit SQ AC-TID PRN 12/29/17 05/21/19 Ferrous Sulfate [Feosol] 325 mg PO DAILY 05/21/19 05/21/19 Furosemide [Lasix] 80 mg PO BID 05/21/19 05/21/19 Insulin Detemir (Levemir) [Levemir] 20 unit SQ AC-BRKFST 05/21/19 05/21/19 Potassium Chloride ER [K-Dur 10] 10 meq PO BID 05/21/19 05/21/19 Spironolactone [Aldactone] 25 mg PO DAILY 05/21/19 05/21/19 Vit C/E/Zn/Coppr/Lutein/Zeaxan 1 cap PO BID 05/21/19 05/21/19 [Preservision Areds 2 Softgel] Previous Rx's Medication Instructions Recorded Sodium Bicarbonate Tab 650 mg PO TID tab 12/31/17 Allergies Allergy/AdvReac Type Severity Reaction Status Date / Time aspirin Allergy Unknown Verified 05/21/19 18:02 bee pollen [Bee Pollen] Allergy Anaphylaxis Verified 05/21/19 18:02 celecoxib [From Celebrex] Allergy Unknown Verified 05/21/19 18:02 blood thinners AdvReac Severe see comment Uncoded 05/21/19 18:02 URIC ACIDS AdvReac GOUT Uncoded 05/21/19 18:02 Review of Systems ROS Statement: Those systems with pertinent positive or pertinent negative responses have been documented in the HPI. ROS Other: All systems not noted in ROS Statement are negative. Past Medical History Past Medical History: Atrial Fibrillation, Coronary Artery Disease (CAD), Cancer, Heart Failure, Diabetes Mellitus, GI Bleed, Hypertension, Osteoarthritis (OA), Pulmonary Embolus (PE), Sleep Apnea/CPAP/BIPAP, Thyroid Disorder Additional Past Medical History / Comment(s): gout, chronic pain in back hip and leg, diverticulitis, LT EYE BLIND,GLAUCOMA, MAC DEGENERATION RT EYE, MURMUR, DIVERTICULAR DX.OVARIAN CYSTS,ANEMIA,SKIN CA,ANEMIA, TRACHEBRONCHITIS WITH REACTIVE BRONCHOSPASM.used to use cpap machine . Increased shortness of breath with activity and at rest. ARACELI CARPAL TUNNEL. History of Any Multi-Drug Resistant Organisms: None Reported Past Surgical History: Appendectomy, Bowel Resection, Breast Surgery, Cardiac Valve Replacement, Cholecystectomy, Coronary Bypass/CABG, Heart Catheterization, Hysterectomy, Orthopedic Surgery, Pacemaker, Tonsillectomy Additional Past Surgical History / Comment(s): pacemaker, AORTIC VALVE REPLACEMENT(TISSUE) AND 1 VESSEL BYPASS, CYST REMOVED FROM HAND/HEAD,BOWEL RESECTION D/T DIVERTICULITIS.KRISTYN FILTER, COLONOCOSPY/POLYPECTOMY/EGD, PAST LT EYE SX-DAMAGED THE OPTIC NERVE-BLIND LT EYE.lt knee arthrosopy, skin cancer removed from hand/head/back Past Anesthesia/Blood Transfusion Reactions: No Reported Reaction Type of Cardiac Device: Permanent Pacemaker Device Placement Date:: 2010 Past Psychological History: Depression Smoking Status: Former smoker Past Alcohol Use History: None Reported - Past Family History Brother(s) History Unknown: Yes Father Family Medical History: Cancer Additional Family Medical History / Comment(s): ALCOHOLIC-- 1969 Mother Family Medical History: Cancer, Coronary Artery Disease (CAD), Dementia, Diabetes Mellitus Additional Family Medical History / Comment(s): 1984 General Exam Limitations: no limitations Course Vital Signs 05/21/19 05/21/19 16:15 16:22 Temperature 99.4 F Pulse Rate 86 Respiratory 22 23 Rate Blood Pressure 137/91 O2 Sat by Pulse 92 L Oximetry Medical Decision Making - Lab Data Result diagrams: 05/21/19 16:34 05/21/19 16:34 Lab Results 05/21/19 05/21/19 05/21/19 Range/Units 16:34 16:34 16:34 WBC 9.5 (3.8-10.6) k/uL RBC 4.29 (3.80-5.40) m/uL Hgb 13.1 (11.4-16.0) gm/dL Hct 40.5 (34.0-46.0) % MCV 94.5 (80.0-100.0) fL MCH 30.5 (25.0-35.0) pg MCHC 32.3 (31.0-37.0) g/dL RDW 15.9 H (11.5-15.5) % Plt Count 183 (150-450) k/uL Neutrophils % 74 % Lymphocytes % 13 % Monocytes % 5 % Eosinophils % 6 % Basophils % 1 % Neutrophils # 7.0 (1.3-7.7) k/uL Lymphocytes # 1.2 (1.0-4.8) k/uL Monocytes # 0.5 (0-1.0) k/uL Eosinophils # 0.6 (0-0.7) k/uL Basophils # 0.1 (0-0.2) k/uL PT (9.0-12.0) sec INR (<1.2) APTT (22.0-30.0) sec Sodium 139 (137-145) mmol/L Potassium 4.6 (3.5-5.1) mmol/L Chloride 105 (98-107) mmol/L Carbon Dioxide 23 (22-30) mmol/L Anion Gap 11 mmol/L BUN 30 H (7-17) mg/dL Creatinine 1.24 H (0.52-1.04) mg/dL Est GFR (CKD-EPI)AfAm 45 (>60 ml/min/1.73 sqM) Est GFR (CKD-EPI)NonAf 39 (>60 ml/min/1.73 sqM) Glucose 121 H (74-99) mg/dL Calcium 9.7 (8.4-10.2) mg/dL Magnesium 2.5 H (1.6-2.3) mg/dL Total Bilirubin 1.9 H (0.2-1.3) mg/dL AST 47 H (14-36) U/L ALT 24 (9-52) U/L Alkaline Phosphatase 338 H (38-126) U/L Troponin I (0.000-0.034) ng/mL NT-Pro-B Natriuret Pep 5800 pg/mL Total Protein 6.7 (6.3-8.2) g/dL Albumin 3.9 (3.5-5.0) g/dL 05/21/19 05/21/19 Range/Units 16:34 16:34 WBC (3.8-10.6) k/uL RBC (3.80-5.40) m/uL Hgb (11.4-16.0) gm/dL Hct (34.0-46.0) % MCV (80.0-100.0) fL MCH (25.0-35.0) pg MCHC (31.0-37.0) g/dL RDW (11.5-15.5) % Plt Count (150-450) k/uL Neutrophils % % Lymphocytes % % Monocytes % % Eosinophils % % Basophils % % Neutrophils # (1.3-7.7) k/uL Lymphocytes # (1.0-4.8) k/uL Monocytes # (0-1.0) k/uL Eosinophils # (0-0.7) k/uL Basophils # (0-0.2) k/uL PT 10.0 (9.0-12.0) sec INR 0.9 (<1.2) APTT 28.0 (22.0-30.0) sec Sodium (137-145) mmol/L Potassium (3.5-5.1) mmol/L Chloride (98-107) mmol/L Carbon Dioxide (22-30) mmol/L Anion Gap mmol/L BUN (7-17) mg/dL Creatinine (0.52-1.04) mg/dL Est GFR (CKD-EPI)AfAm (>60 ml/min/1.73 sqM) Est GFR (CKD-EPI)NonAf (>60 ml/min/1.73 sqM) Glucose (74-99) mg/dL Calcium (8.4-10.2) mg/dL Magnesium (1.6-2.3) mg/dL Total Bilirubin (0.2-1.3) mg/dL AST (14-36) U/L ALT (9-52) U/L Alkaline Phosphatase (38-126) U/L Troponin I 0.033 (0.000-0.034) ng/mL NT-Pro-B Natriuret Pep pg/mL Total Protein (6.3-8.2) g/dL Albumin (3.5-5.0) g/dL Disposition Clinical Impression: Heart failure Disposition: ADMITTED IP TO THIS HOSP Condition: Fair Referrals: Jesse Amor MD [Primary Care Provider] - 1-2 days Decision Time: 18:23
[2019-05-21 17:19] LABS: Basophils # (A) 0.1 k/uL (0-0.2); Basophils % (A) 1 %; Eosinophils # (A) 0.6 k/uL (0-0.7); Eosinophils % (A) 6 %; HCT 40.5 % (34.0-46.0); HGB 13.1 gm/dL (11.4-16.0); Lymphocytes # (A) 1.2 k/uL (1.0-4.8); Lymphocytes % (A) 13 %; MCH 30.5 pg (25.0-35.0); MCHC 32.3 g/dL (31.0-37.0); MCV 94.5 fL (80.0-100.0); Mean Platelet Volume 10.2; Monocytes # (A) 0.5 k/uL (0-1.0); Monocytes % (A) 5 %; Neutrophils % (A) 74 %; Platelet Count 183 k/uL (150-450); RBC 4.29 m/uL (3.80-5.40); RDW 15.9 % (11.5-15.5); WBC 9.5 k/uL (3.8-10.6)
[2019-05-21 17:28] LABS: INR 0.9 (<1.2)
[2019-05-21 17:38] LABS: Albumin 3.9 g/dL (3.5-5.0); Calcium 9.7 mg/dL (8.4-10.2); Magnesium 2.5 mg/dL (1.6-2.3); Potassium 4.6 mmol/L (3.5-5.1); Total Bilirubin 1.9 mg/dL (0.2-1.3); Total Protein 6.7 g/dL (6.3-8.2)
--- NOTE | 2019-05-21 17:56 | XR ---
EXAMINATION TYPE: XR chest 2V DATE OF EXAM: 05/21/2019 COMPARISON: 12/29/2017 HISTORY: Short of breath TECHNIQUE: Frontal and lateral views of the chest are obtained. FINDINGS: There is mild blunting of the costophrenic angles. There is no gross heart failure. Heart is slightly enlarged. There is left axillary pacemaker. There are sternal wires. There are chest lead s. IMPRESSION: Small pleural effusions appear increased compared to last exam. No overt heart failure. No pulmonary consolidation.
[2019-05-21] MEDS ORDERED: SODIUM CHLORIDE 0.9% 500 ML IV STA (18:05)
[2019-05-21] MEDS ORDERED: FUROSEMIDE 10 MG/ML 4 ML VIAL IV STA (18:21)
[2019-05-21] MEDS ORDERED: FUROSEMIDE 10 MG/ML 10 ML VIAL IV STA (18:27)
[2019-05-21] MEDS ORDERED: SODIUM CHLORIDE 0.9% 1,000 ML IV STA (18:39)
[2019-05-21] MEDS ORDERED: FUROSEMIDE 80 MG TAB PO SCH (21:00)
[2019-05-21] MEDS ORDERED: FUROSEMIDE 10 MG/ML 4 ML VIAL IV SCH (21:00)
[2019-05-21] MEDS ORDERED: FUROSEMIDE 40 MG TAB PO SCH (22:00)
[2019-05-21 22:30] LABS: Glucose,Whole Blood 143 mg/dL (75-99)
[2019-05-21] MEDS ORDERED: INSULIN ASPART (NovoLOG) 100 UNIT/ML VIAL SQ PRN (23:56)
--- NOTE | 2019-05-22 00:01 | P.HPIM ---
History of Present Illness H&P Date: 05/21/19 The patient is a 88-year-old female with a PMH of coronary artery disease status post CABG, diastolic CHF, pacemaker secondary to sick sinus syndrome, aortic valve replacement, persistent atrial fibrillation not on anticoagulation, COPD, hypertension, and and hyperlipidemia, presented to the ED with complaints of shortness of breath. The patient notes that for the past 2-3 days, she has been feeling a lot more winded and her exercise tolerance has decreased significantly. She notes compliance with her Lasix along with her fluid and salt restriction at home. She otherwise denied chest pain, nausea, vomiting, diaphoresis, palpitations, or leg pain. She also denied fever, chills, or cough. She underwent an extensive evaluation the ED with chest x-ray showing small pleural effusions with no obvious heart failure. Laboratory evaluation revealed a BNP of 5800, troponin of 0.033, alk phos 338, AST 47, ALT 24, total bili 1.9, magnesium 2.5, BUN 30, creatinine 1.24. EKG reveals a paced rhythm. The patient was subsequently admitted to the medicine service for acute CHF exacerbation. Review of Systems Pertinent positives and negatives as discussed in HPI, a complete review of systems was performed and all other systems are negative. Past Medical History Past Medical History: Atrial Fibrillation, Coronary Artery Disease (CAD), Cancer, Heart Failure, Diabetes Mellitus, GI Bleed, Hypertension, Osteoarthritis (OA), Pneumonia, Pulmonary Embolus (PE), Sleep Apnea/CPAP/BIPAP, Thyroid Disorder Additional Past Medical History / Comment(s): gout, chronic pain in back hip and leg, diverticulitis, LT EYE BLIND,GLAUCOMA, MAC DEGENERATION RT EYE, MURMUR, DIVERTICULAR DX.OVARIAN CYSTS,SKIN CA,ANEMIA, TRACHEBRONCHITIS WITH REACTIVE BRONCHOSPASM.used to use cpap machine . Increased shortness of breath with activity and at rest. ARACELI CARPAL TUNNEL. History of Any Multi-Drug Resistant Organisms: None Reported Past Surgical History: Appendectomy, Bowel Resection, Breast Surgery, Cardiac Valve Replacement, Cholecystectomy, Coronary Bypass/CABG, Heart Catheterization, Hysterectomy, Orthopedic Surgery, Pacemaker, Tonsillectomy Additional Past Surgical History / Comment(s): pacemaker, AORTIC VALVE REPLACEMENT(TISSUE) AND 1 VESSEL BYPASS, CYST REMOVED FROM HAND/HEAD,BOWEL RESECTION D/T DIVERTICULITIS.KRISTYN FILTER, COLONOCOSPY/POLYPECTOMY/EGD, PAST LT EYE SX-DAMAGED THE OPTIC NERVE-BLIND LT EYE.lt knee arthrosopy, skin cancer removed from hand/head/back Past Anesthesia/Blood Transfusion Reactions: No Reported Reaction Type of Cardiac Device: Permanent Pacemaker Device Placement Date:: 2010 Past Psychological History: Depression Additional Psychological History / Comment(s): history of depression, denies now Smoking Status: Former smoker Past Alcohol Use History: None Reported Past Drug Use History: None Reported - Past Family History Brother(s) History Unknown: Yes Father Family Medical History: Cancer Additional Family Medical History / Comment(s): ALCOHOLIC-- 1969 Mother Family Medical History: Cancer, Coronary Artery Disease (CAD), Dementia, Gladis betes Mellitus Additional Family Medical History / Comment(s): 1984 Medications and Allergies Home Medications Medication Instructions Recorded Confirmed Type Carvedilol [Coreg] 3.125 mg PO BID 03/25/14 05/21/19 History Allopurinol 100 mg PO BID 03/07/15 05/21/19 History Levothyroxine Sodium [Synthroid] 75 mcg PO DAILY 11/03/17 05/21/19 History Insulin Lispro [humaLOG Kwikpen] 5 unit SQ AC-TID PRN 12/29/17 05/21/19 History Sodium Bicarbonate Tab 650 mg PO TID tab 12/31/17 05/21/19 Rx Ferrous Sulfate [Feosol] 325 mg PO DAILY 05/21/19 05/21/19 History Furosemide [Lasix] 80 mg PO BID 05/21/19 05/21/19 History Insulin Detemir (Levemir) [Levemir] 20 unit SQ AC-BRKFST 05/21/19 05/21/19 History Potassium Chloride ER [K-Dur 10] 10 meq PO BID 05/21/19 05/21/19 History Spironolactone [Aldactone] 25 mg PO DAILY 05/21/19 05/21/19 History Vit C/E/Zn/Coppr/Lutein/Zeaxan 1 cap PO BID 05/21/19 05/21/19 History [Preservision Areds 2 Softgel] Allergies Allergy/AdvReac Type Severity Reaction Status Date / Time aspirin Allergy Unknown Verified 05/21/19 20:51 bee pollen [Bee Pollen] Allergy Anaphylaxis Verified 05/21/19 20:51 celecoxib [From Celebrex] Allergy Unknown Verified 05/21/19 20:51 blood thinners AdvReac Severe see comment Uncoded 05/21/19 20:51 URIC ACIDS AdvReac GOUT Uncoded 05/21/19 20:51 Physical Exam Vitals: Vital Signs Temp Pulse Pulse Resp BP BP Pulse Ox 05/21/19 20:34 70 17 118/75 97 05/21/19 20:00 98.0 F 67 15 136/69 96 05/21/19 19:21 74 19 120/82 97 05/21/19 18:30 98.5 F 69 19 157/76 97 05/21/19 16:22 23 05/21/19 16:15 99.4 F 86 22 137/91 92 L Intake and Output 05/21/19 05/21/19 05/22/19 14:59 22:59 06:59 Other: Voiding Method Bedside Commode Weight 81.647 kg General: non toxic, no distress, appears at stated age, normal weight Derm: no unusual rashes/lesions no unusual ecchymoses, warm, dry Head: atraumatic, normocephalic, symmetric Eyes: EOMI, no lid lag, anicteric sclera, pupils equal round reactive to light ENT: Nose and ears atraumatic, no thrush, no pharyngeal erythema Neck: No thyromegaly, no cervical lymphadenopathy, trachea midline, supple Mouth: no lip lesion, mucus membranes moist Cardiovascular: Irregularly irregular, no murmur, positive posterior tibial pulse bilateral, 1+ bilateral lower attributed edema, capillary refill less than 2 seconds Lungs: Trace bilateral rails, no rhonchi, no accessory muscle use Abdominal: soft, nontender to palpation, no guarding, no appreciable organomegaly, normal bowel sounds Ext: no gross muscle atrophy, muscle strength 4 out of 5 in all 4 extremities grossly, no contractures, Neuro: CN II-XI grossly intact, light touch intact all 4 extremities, finger to nose within normal limits, Psych: Alert, oriented, appropriate affect Results CBC & Chem 7: 05/21/19 16:34 05/21/19 16:34 Labs: Abnormal Lab Results - Last 24 Hours (Table) 05/21/19 05/21/19 05/21/19 Range/Units 16:34 16:34 22:28 RDW 15.9 H (11.5-15.5) % BUN 30 H (7-17) mg/dL Creatinine 1.24 H (0.52-1.04) mg/dL Glucose 121 H (74-99) mg/dL POC Glucose (mg/dL) 143 H (75-99) mg/dL Magnesium 2.5 H (1.6-2.3) mg/dL Total Bilirubin 1.9 H (0.2-1.3) mg/dL AST 47 H (14-36) U/L Alkaline Phosphatase 338 H (38-126) U/L Thrombosis Risk Factor Assmnt - Choose All That Apply Any of the Below Risk Factors Present?: Yes Each Factor Represents 1 point: Heart failure (<1month), Hx of IBD, Obesity (BMI >25), Swollen legs (current) Other Risk Factors: Yes Each Risk Factor Represents 3 Points: Age 75 years or older, History of DVT/PE Other congenital or acquired thrombophilia - If yes, enter type in comment: No Thrombosis Risk Factor Assessment Total Risk Factor Score: 10 Thrombosis Risk Factor Assessment Level: High Risk Assessment and Plan Plan: Acute diastolic CHF exacerbation -Lasix IVP every 12 hourly -Fluid restriction -Cardiac monitoring -Cardiology consulted -Daily weights -I's and O's -Supplemental oxygen Troponin elevation -Likely secondary to demand from acute CHF exacerbation -Trend for now Abnormal LFTs -Monitor for now Chronic conditions: Coronary artery disease, DM, aortic valve replacement, atrial ablation, COPD, hypertension, hyperlipidemia -Continue with home meds DVT prophylaxis -Heparin The patient is admitted with an anticipated less than 2 midnight stay for evaluation of acute diastolic CHF. CODE STATUS: No code Discussed with: Patient Anticipated discharge date: 05/22/[address]: Home A total of 35 minutes was spent on the care of this complex patient more than 50% of the time was spent in counseling and care coordination.
[2019-05-22] MEDS: SODIUM BICARBONATE TAB 650 MG TAB PO SCH ×4 (01:11→21:04)
[2019-05-22] MEDS: HEPARIN SODIUM,PORCINE 5,000 UNIT/ML 1 ML VIAL SQ SCH ×5 (01:11→20:37)
[2019-05-22] MEDS: CARVEDILOL 3.125 MG TAB PO SCH ×3 (01:11→17:42)
[2019-05-22] MEDS: ALLOPURINOL 100 MG TAB PO SCH ×3 (01:11→21:04)
[2019-05-22] MEDS: POTASSIUM CHLORIDE ER 10 MEQ TAB.ER.PRT PO SCH ×3 (01:13→21:04)
[2019-05-22] MEDS: LEVOTHYROXINE 75 MCG TAB PO SCH (06:18)
[2019-05-22 06:45] LABS: Glucose,Whole Blood 134 mg/dL (75-99)
[2019-05-22] MEDS: INSULIN ASPART (NovoLOG) 100 UNIT/ML VIAL SQ SCH ×4 (07:15→17:09)
[2019-05-22] MEDS ORDERED: INSULIN DETEMIR (LEVEMIR) 100 UNIT/ML SYR SQ SCH (07:30)
[2019-05-22] MEDS ORDERED: CARVEDILOL 3.125 MG TAB PO SCH (07:30)
[2019-05-22] MEDS: SPIRONOLACTONE 25 MG TAB PO SCH (08:16)
[2019-05-22] MEDS: FERROUS SULFATE 325 MG TAB PO SCH (08:16)
[2019-05-22] MEDS: INSULIN DETEMIR (LEVEMIR) 100 UNIT/ML SYR SQ SCH (08:16)
[2019-05-22 08:56] LABS: Albumin 3.2 g/dL (3.5-5.0); Calcium 9.2 mg/dL (8.4-10.2); Potassium 4.3 mmol/L (3.5-5.1); Total Bilirubin 1.7 mg/dL (0.2-1.3); Total Protein 5.7 g/dL (6.3-8.2)
[2019-05-22] MEDS ORDERED: FUROSEMIDE 10 MG/ML 4 ML VIAL IV SCH (09:00)
[2019-05-22] MEDS ORDERED: ALLOPURINOL 100 MG TAB PO SCH (09:00)
[2019-05-22] MEDS ORDERED: SODIUM BICARBONATE TAB 650 MG TAB PO SCH (09:00)
[2019-05-22 11:22] LABS: Glucose,Whole Blood 96 mg/dL (75-99)
[2019-05-22 12:51] VITALS: BMI 31.1
--- NOTE | 2019-05-22 13:02 | P.CRDCN ---
<Holly Alvarenga - Last Filed: 05/22/19 13:02> History of Present Illness History of present illness: This is Holly Alvarenga PA-C dictating a consult on this patient The patient was interviewed and examined by me as well as by Dr. Garcia Case discussed with Dr. Garcia and he agrees with the plan of care IMPRESSION / ASSESSMENT: Shortness of breath, possibly secondary to diastolic CHF exacerbation versus valvular heart disease, chest x-ray showing small pleural effusions, BNP elevated, troponins negative CAD status post CABG History of aVR Sick sinus syndrome status post pacemaker placement Persistent atrial fibrillation not on anticoagulation for unknown reason COPD Hypertension Dyslipidemia Acute kidney injury, creatinine 1.41 from 1.24 PLAN: Repeat echocardiogram to evaluate heart structure and function Reduce IV Lasix to 40 mg daily, plan to transition to oral Lasix tomorrow, monitor kidney function closely HPI Patient is an 88-year-old female with a past medical history of CAD status post CABG, diastolic CHF, sick sinus syndrome status post pacer pacemaker, valvular heart disease status post aortic valve replacement, persistent atrial fibrillation, COPD, hypertension, dyslipidemia who presented to the emergency department with complaints of shortness of breath. Patient states she has been progressively more short of breath over the last week. Her shortness of breath is worse in the morning. She tried taking her inhalers and they did not help. Denies orthopnea or lower extremity edema. Denies chest pain, palpitations. On admission her vital signs were stable. Chest x-ray showed small pleural effusions bilaterally, no pulmonary consolidation. EKG showed atrial fib rillation with a right bundle branch block, ST depressions and T-wave inversions inferiorly unchanged from prior EKGs. She was started on IV Lasix. Patient seen and examined resting comfortably in bed. States her breathing has improved somewhat but is not 100% back to her baseline. Denies chest pain or palpitations. ROS: No fevers, chills or rigors, Positive for dry cough no nausea, vomiting or diarrhea, no hematuria, dysuria, no musculoskeletal complaints, no strokes or seizures, no skin lesions. EXAMINATION: Temperature 99.3F, pulse 91, respirations 18, blood pressure 113/63, oxygen saturation 95% on 2 L nasal cannula Patient seen and examined resting in bed, in no acute distress Lungs with few scattered crackles at the bases Heart is irregular, systolic murmur appreciated Trace bilateral lower extremity edema No elevated JVD noted REVIEW OF LABS, ECG & MEDICAL DATA WBC 9.5, hemoglobin 13.1, platelets 183, potassium 4.6, BUN 30, creatinine 1.41, magnesium 2.5, BNP elevated at 5800 Troponin normal 2 Chest x-ray showed small pleural effusions bilaterally, no pulmonary consolidation EKG showed atrial fibrillation with a right bundle branch block, ST depressions and T-wave inversions inferiorly unchanged from prior EKGs Last echocardiogram in November 2017 showed preserved LV systolic function, EF 55-60% Past Medical History Past Medical History: Atrial Fibrillation, Coronary Artery Disease (CAD), Cancer, Heart Failure, Diabetes Mellitus, GI Bleed, Hypertension, Osteoarthritis (OA), Pneumonia, Pulmonary Embolus (PE), Sleep Apnea/CPAP/BIPAP, Thyroid Disorder Additional Past Medical History / Comment(s): gout, chronic pain in back hip and leg, diverticulitis, LT EYE BLIND,GLAUCOMA, MAC DEGENERATION RT EYE, MURMUR, DIVERTICULAR DX.OVARIAN CYSTS,SKIN CA,ANEMIA, TRACHEBRONCHITIS WITH REACTIVE BRO NCHOSPASM.used to use cpap machine . Increased shortness of breath with activity and at rest. ARACELI CARPAL TUNNEL. History of Any Multi-Drug Resistant Organisms: None Reported Past Surgical History: Appendectomy, Bowel Resection, Breast Surgery, Cardiac Valve Replacement, Cholecystectomy, Coronary Bypass/CABG, Heart Catheterization, Hysterectomy, Orthopedic Surgery, Pacemaker, Tonsillectomy Additional Past Surgical History / Comment(s): pacemaker, AORTIC VALVE REPLACEMENT(TISSUE) AND 1 VESSEL BYPASS, CYST REMOVED FROM HAND/HEAD,BOWEL RESECTION D/T DIVERTICULITIS.KRISTYN FILTER, COLONOCOSPY/POLYPECTOMY/EGD, PAST LT EYE SX-DAMAGED THE OPTIC NERVE-BLIND LT EYE.lt knee arthrosopy, skin cancer removed from hand/head/back Past Anesthesia/Blood Transfusion Reactions: No Reported Reaction Type of Cardiac Device: Permanent Pacemaker Device Placement Date:: 2010 Past Psychological History: Depression Additional Psychological History / Comment(s): history of depression, denies now Smoking Status: Former smoker Past Alcohol Use History: None Reported Past Drug Use History: None Reported - Past Family History Brother(s) History Unknown: Yes Father Family Medical History: Cancer Additional Family Medical History / Comment(s): ALCOHOLIC-- 1969 Mother Family Medical History: Cancer, Coronary Artery Disease (CAD), Dementia, Diabetes Mellitus Additional Family Medical History / Comment(s): 1984 Medications and Allergies Home Medications Medication Instructions Recorded Confirmed Type Carvedilol [Coreg] 3.125 mg PO BID 03/25/14 05/21/19 History Allopurinol 100 mg PO BID 03/07/15 05/21/19 History Levothyroxine Sodium [Synthroid] 75 mcg PO DAILY 11/03/17 05/21/19 History Insulin Lispro [humaLOG Kwikpen] 5 unit SQ AC-TID PRN 12/29/17 05/21/19 History Sodium Bicarbonate Tab 650 mg PO TID tab 12/31/17 05/21/19 Rx Ferrous Sulfate [Feosol] 325 mg PO DAILY 05/21/19 05/21/19 History Furosemide [Lasix] 80 mg PO BID 05/21/19 05/21/19 History Insulin Detemir (Levemir) [Levemir] 20 unit SQ AC-BRKFST 05/21/19 05/21/19 History Potassium Chloride ER [K-Dur 10] 10 meq PO BID 05/21/19 05/21/19 History Spironolactone [Aldactone] 25 mg PO DAILY 05/21/19 05/21/19 History Vit C/E/Zn/Coppr/Lutein/Zeaxan 1 cap PO BID 05/21/19 05/21/19 History [Preservision Areds 2 Softgel] Allergies Allergy/AdvReac Type Severity Reaction Status Date / Time aspirin Allergy Unknown Verified 05/21/19 20:51 bee pollen [Bee Pollen] Allergy Anaphylaxis Verified 05/21/19 20:51 celecoxib [From Celebrex] Allergy Unknown Verified 05/21/19 20:51 blood thinners AdvReac Severe see comment Uncoded 05/21/19 20:51 URIC ACIDS AdvReac GOUT Uncoded 05/21/19 20:51 Physical Exam Vitals: Vital Signs Temp Pulse Pulse Pulse Pulse Resp BP 05/22/19 12:00 99.3 F 91 18 05/22/19 08:02 67 18 05/22/19 07:31 97.7 F 66 05/22/19 04:00 98.0 F 67 16 05/21/19 23:51 98.0 F 63 15 08/17/19 20:34 70 17 118/75 08/17/19 20:00 98.0 F 67 15 05/21/19 19:21 74 19 120/82 05/21/19 18:30 98.5 F 69 19 157/76 05/21/19 16:22 23 05/21/19 16:15 99.4 F 86 22 137/91 BP BP Pulse Ox 05/22/19 12:00 113/63 95 05/22/19 08:02 141/79 97 05/22/19 07:31 87/59 98 05/22/19 04:00 119/53 98 05/21/19 23:51 132/67 95 05/21/19 20:34 97 05/21/19 20:00 136/69 96 05/21/19 19:21 97 05/21/19 18:30 97 05/21/19 16:22 05/21/19 16:15 92 L Intake and Output 05/21/19 05/22/19 05/22/19 22:59 06:59 14:59 Output Total 725 602 Balance -725 -602 Output: Urine 725 602 Other: Voiding Method Bedside Commode Bedside Commode Bedside Commode # Voids 0 1 Weight 81.647 kg 82.3 kg Results 05/21/19 16:34 05/22/19 07:45 Cardiac Enzymes 05/21/19 05/21/19 05/22/19 Range/Units 16:34 16:34 07:45 AST 47 H 31 (14-36) U/L Troponin I 0.033 (0.000-0.034) ng/mL 05/22/19 Range/Units 07:45 AST (14-36) U/L Troponin I 0.033 (0.000-0.034) ng/mL Coagulation 05/21/19 Range/Units 16:34 PT 10.0 (9.0-12.0) sec APTT 28.0 (22.0-30.0) sec CBC 05/21/19 Range/Units 16:34 WBC 9.5 (3.8-10.6) k/uL RBC 4.29 (3.80-5.40) m/uL Hgb 13.1 (11.4-16.0) gm/dL Hct 40.5 (34.0-46.0) % Plt Count 183 (150-450) k/uL Comprehensive Metabolic Panel 05/21/19 05/22/19 Range/Units 16:34 07:45 Sodium 139 140 (137-145) mmol/L Potassium 4.6 4.3 (3.5-5.1) mmol/L Chloride 105 107 (98-107) mmol/L Carbon Dioxide 23 26 (22-30) mmol/L BUN 30 H 30 H (7-17) mg/dL Creatinine 1.24 H 1.41 H (0.52-1.04) mg/dL Glucose 121 H 135 H (74-99) mg/dL Calcium 9.7 9.2 (8.4-10.2) mg/dL AST 47 H 31 (14-36) U/L ALT 24 20 (9-52) U/L Alkaline Phosphatase 338 H 264 H (38-126) U/L Total Protein 6.7 5.7 L (6.3-8.2) g/dL Albumin 3.9 3.2 L (3.5-5.0) g/dL Current Medications Generic Name Dose Route Start Last Admin Trade Name Freq PRN Reason Stop Dose Admin Allopurinol 100 mg 05/22/19 00:21 05/22/19 08:24 Zyloprim PO 100 mg BID IRENE Administration Carvedilol 3.125 mg 05/22/19 00:30 05/22/19 08:24 Coreg PO 3.125 mg AC-BID IRENE Administration Ferrous Sulfate 325 mg 05/22/19 09:00 05/22/19 08:16 Feosol PO 325 mg DAILY IRENE Administration Furosemide 40 mg 05/22/19 09:00 05/22/19 08:16 Lasix IV 40 mg Q12HR IRENE Administration Heparin Sodium (Porcine) 5,000 unit 05/22/19 00:00 05/22/19 11:44 Heparin SQ Not Given Q8HR IRENE Insulin Aspart 5 unit 05/22/19 07:30 05/22/19 11:44 Novolog SQ Not Given AC-TID IRENE Insulin Detemir 15 unit 05/22/19 07:00 05/22/19 08:16 Levemir SQ 15 unit AC-BRKFST@0700 IRENE Administration Levothyroxine Sodium 75 mcg 05/22/19 06:30 05/22/19 06:18 Synthroid PO 75 mcg DAILY@0630 IRENE Administration Potassium Chloride 10 meq 05/21/19 21:00 05/22/19 08:16 K-Dur 10 PO 10 meq BID IRENE Administration Sodium Bicarbonate 650 mg 05/22/19 00:21 05/22/19 08:17 Sodium Bicarbonate Tab PO 650 mg TID IRENE Administration Spironolactone 25 mg 05/22/19 09:00 05/22/19 08:16 Aldactone PO 25 mg DAILY IRENE Administration Intake and Output 05/21/19 05/22/19 05/22/19 22:59 06:59 14:59 Output Total 725 602 Balance -725 -602 Output: Urine 725 602 Other: Voiding Method Bedside Commode Bedside Commode Bedside Commode # Voids 0 1 Weight 81.647 kg 82.3 kg 05/21/19 16:34 05/22/19 07:45 <Tato Garcia - Last Filed: 05/22/19 13:54> History of Present Illness History of present illness: Patient is normal anticoagulation as she had a massive internal bleed on ELIQUIS Physical Exam Vitals: Vital Signs Temp Pulse Pulse Pulse Pulse Resp BP 05/22/19 12:00 99.3 F 91 18 05/22/19 08:02 67 18 05/22/19 07:31 97.7 F 66 05/22/19 04:00 98.0 F 67 16 05/21/19 23:51 98.0 F 63 15 05/21/19 20:34 70 17 118/75 05/21/19 20:00 98.0 F 67 15 05/21/19 19:21 74 19 120/82 05/21/19 18:30 98.5 F 69 19 157/76 05/21/19 16:22 23 05/21/19 16:15 99.4 F 86 22 137/91 BP BP Pulse Ox 05/22/19 12:00 113/63 95 05/22/19 08:02 141/79 97 05/22/19 07:31 87/59 98 05/22/19 04:00 119/53 98 05/21/19 23:51 132/67 95 05/21/19 20:34 97 05/21/19 20:00 136/69 96 05/21/19 19:21 97 05/21/19 18:30 97 05/21/19 16:22 05/21/19 16:15 92 L Intake and Output 05/21/19 05/22/19 05/22/19 22:59 06:59 14:59 Output Total 725 602 Balance -725 -602 Output: Urine 725 602 Other: Voiding Method Bedside Commode Bedside Commode Toilet Bedside Commode # Voids 0 1 Weight 81.647 kg 82.3 kg 82.3 kg Results 05/21/19 16:34 05/22/19 07:45 Cardiac Enzymes 05/21/19 05/21/19 05/22/19 Range/Units 16:34 16:34 07:45 AST 47 H 31 (14-36) U/L Troponin I 0.033 (0.000-0.034) ng/mL 05/22/19 Range/Units 07:45 AST (14-36) U/L Troponin I 0.033 (0.000-0.034) ng/mL Coagulation 05/21/19 Range/Units 16:34 PT 10.0 (9.0-12.0) sec APTT 28.0 (22.0-30.0) sec CBC 05/21/19 Range/Units 16:34 WBC 9.5 (3.8-10.6) k/uL RBC 4.29 (3.80-5.40) m/uL Hgb 13.1 (11.4-16.0) gm/dL Hct 40.5 (34.0-46.0) % Plt Count 183 (150-450) k/uL Comprehensive Metabolic Panel 05/21/19 05/22/19 Range/Units 16:34 07:45 Sodium 139 140 (137-145) mmol/L Potassium 4.6 4.3 (3.5-5.1) mmol/L Chloride 105 107 (98-107) mmol/L Carbon Dioxide 23 26 (22-30) mmol/L BUN 30 H 30 H (7-17) mg/dL Creatinine 1.24 H 1.41 H (0.52-1.04) mg/dL Glucose 121 H 135 H (74-99) mg/dL Calcium 9.7 9.2 (8.4-10.2) mg/dL AST 47 H 31 (14-36) U/L ALT 24 20 (9-52) U/L Alkaline Phosphatase 338 H 264 H (38-126) U/L Total Protein 6.7 5.7 L (6.3-8.2) g/dL Albumin 3.9 3.2 L (3.5-5.0) g/dL Current Medications Generic Name Dose Route Start Last Admin Trade Name Freq PRN Reason Stop Dose Admin Allopurinol 100 mg 05/22/19 00:21 05/22/19 08:24 Zyloprim PO 100 mg BID IRENE Administration Carvedilol 3.125 mg 05/22/19 00:30 05/22/19 08:24 Coreg PO 3.125 mg AC-BID IRENE Administration Ferrous Sulfate 325 mg 05/22/19 09:00 05/22/19 08:16 Feosol PO 325 mg DAILY IRENE Administration Furosemide 40 mg 05/23/19 09:00 Lasix IV DAILY IRENE Heparin Sodium (Porcine) 5,000 unit 05/22/19 00:00 05/22/19 11:44 Heparin SQ Not Given Q8HR IRENE Insulin Aspart 5 unit 05/22/19 07:30 05/22/19 11:44 Novolog SQ Not Given AC-TID [facility] Insulin Detemir 15 unit 05/22/19 07:00 05/22/19 08:16 Levemir SQ 15 unit AC-BRKFST@0700 IRENE Administration Levothyroxine Sodium 75 mcg 05/22/19 06:30 05/22/19 06:18 Synthroid PO 75 mcg DAILY@0630 IRENE Administration Potassium Chloride 10 meq 05/21/19 21:00 05/22/19 08:16 K-Dur 10 PO 10 meq BID IRENE Administration Sodium Bicarbonate 650 mg 05/22/19 00:21 05/22/19 08:17 Sodium Bicarbonate Tab PO 650 mg TID IRENE Administration Spironolactone 25 mg 05/22/19 09:00 05/22/19 08:16 Aldactone PO 25 mg DAILY IRENE Administration Intake and Output 05/21/19 05/22/19 05/22/19 22:59 06:59 14:59 Output Total 725 602 Balance -725 602 Output: Urine 725 602 Other: Voiding Method Bedside Commode Bedside Commode Toilet Bedside Commode # Voids 0 1 Weight 81.647 kg 82.3 kg 82.3 kg Patient Weight 05/23/19 06:59 Weight 82.3 kg 05/21/19 16:34 05/22/19 07:45
--- NOTE | 2019-05-22 13:26 | P.PN ---
Subjective Progress Note Date: 05/22/19 (delayed charting seen at 1030) Principal diagnosis: shortness of breath Patient is an 88-year-old female with past medical history of coronary artery disease status post CABG, diastolic congestive heart failure, pacemaker secondary to sick sinus syndrome, atrial fibrillation, and prior aortic valve replacement who presented to the emergency department with complaints of shortness of breath. On arrival to the ER she underwent an extensive evaluation. Her initial vital signs were within normal limits. Initial laboratory analysis demonstrated an elevated BNP at 5800 as well as an elevated creatinine at 1.246 consistent with her baseline. Chest x-ray showed small pleural effusions. Troponin was negative. There is concern for congestive heart failure and she was started on IV Lasix. She was placed in observation for further monitoring. On the morning of 05/22 she had had significant improvement in her breathing which was not yet back to baseline. Cardiology had been consulted. The plan was to maintain IV Lasix and repeat echocardiogram in the morning to assess for structure and function. Patient seen and examined at bedside. She states that her breathing is much better than yesterday but still not back to her baseline. She has had some intermittent chest "twinges". She has these at home but did have one episode this morning. She denies any lightheadedness or dizziness. She has had good urine output. She follows with Dr. Badillo in the office but has not seen him in approximately 3 years and is overdue for pacemaker check. Objective - Vital Signs Vital signs: Vital Signs Temp 99.3 F 05/22/19 12:00 Pulse 91 05/22/19 12:00 Resp 18 05/22/19 12:00 BP 113/63 05/22/19 12:00 Pulse Ox 95 05/22/19 12:00 Intake & Output 05/21/19 05/22/19 05/22/19 18:59 06:59 18:59 Output Total 725 602 Balance -725 -602 Weight 81.647 kg 82.3 kg 82.3 kg Output: Urine 725 602 Other: Voiding Method Bedside Commode Toilet Bedside Commode # Voids 0 1 - Exam General: non toxic, no distress, appears younger than stated age Derm: Multiple areas of ecchymosis, warm, dry Head: atraumatic, normocephalic, symmetric Eyes: EOMI, no lid lag, anicteric sclera Mouth: no lip lesion, mucus membranes moist Cardiovascular: S1S2 reg, no murmur, positive posterior tibial pulse bilateral, Lungs: Faint crackles bilateral bases , no accessory muscle use Abdominal: soft, nontender to palpation, no guarding, no appreciable organomegaly Ext: no gross muscle atrophy, edema bilateral, no contractures Neuro: CN II-XI grossly intact, no focal neuro deficits Psych: Alert, oriented, appropriate affect - Labs CBC & Chem 7: 05/21/19 16:34 05/22/19 07:45 Labs: Abnormal Lab Results - Last 24 Hours (Table) 05/21/19 05/21/19 05/21/19 Range/Units 16:34 16:34 22:28 RDW 15.9 H (11.5-15.5) % BUN 30 H (7-17) mg/dL Creatinine 1.24 H (0.52-1.04) mg/dL Glucose 121 H (74-99) mg/dL POC Glucose (mg/dL) 143 H (75-99) mg/dL Magnesium 2.5 H (1.6-2.3) mg/dL Total Bilirubin 1.9 H (0.2-1.3) mg/dL AST 47 H (14-36) U/L Alkaline Phosphatase 338 H (38-126) U/L Total Protein (6.3-8.2) g/dL Albumin (3.5-5.0) g/dL 05/22/19 05/22/19 Range/Units 06:38 07:45 RDW (11.5-15.5) % BUN 30 H (7-17) mg/dL Creatinine 1.41 H (0.52-1.04) mg/dL Glucose 135 H (74-99) mg/dL POC Glucose (mg/dL) 134 H (75-99) mg/dL Magnesium (1.6-2.3) mg/dL Total Bilirubin 1.7 H (0.2-1.3) mg/dL AST (14-36) U/L Alkaline Phosphatase 264 H (38-126) U/L Total Protein 5.7 L (6.3-8.2) g/dL Albumin 3.2 L (3.5-5.0) g/dL Assessment and Plan Assessment: Acute exacerbation of diastolic congestive heart failure, last echocardiogram demonstrated an ejection fraction of 55-60% with possible left ventricular outflow tract obstruction, moderate aortic stenosis, severe mitral regurg, and severe pulmonary hypertension with RVSP 69.2. -Reduce Lasix to IV once daily -Strict I's and O's, daily weights -Cardiology recommendations appreciated -Repeat echocardiogram -Continue with Coreg -Patient is not chronically an PAMELA inhibitor and this will not be initiated at this point in time until ejection fraction is known Diabetes mellitus type 2 insulin requiring -Well controlled -Continue with Levemir and sliding scale insulin -Plan to discharge home back on her home Levemir and lispro doses Chronic kidney disease -Appears at baseline creatinine runs 1.2-1.4 -Follow renal function closely with diuresis -Avoid starting PAMELA inhibitor at this point in time Persistentatrial fibrillation with history of sick sinus syndrome -Continue with beta ricky, not chronically on anticoagulation -We'll need to follow-up in office for pacemaker interrogation Hypothyroidism -Continue Synthroid Hypertension, controlled -Continue home medications Chronic conditions: Coronary artery disease, sleep apnea, gout, glaucoma, anemia DVT prophylaxis: Heparin Discussed with: Patient, nursing Anticipated discharge: In a.m. Anticipated discharge place: Home A total of 25 minutes was spent on the care of this complex patient more than 50% of the time was spent in counseling and care coordination.
[2019-05-22 17:07] LABS: Glucose,Whole Blood 137 mg/dL (75-99)
[2019-05-22 20:24] LABS: Glucose,Whole Blood 163 mg/dL (75-99)
[2019-05-23] MEDS: LEVOTHYROXINE 75 MCG TAB PO SCH (05:33)
[2019-05-23 05:54] LABS: Calcium 9.1 mg/dL (8.4-10.2); Magnesium 2.4 mg/dL (1.6-2.3); Potassium 4.5 mmol/L (3.5-5.1)
[2019-05-23 06:38] LABS: Glucose,Whole Blood 168 mg/dL (75-99)
[2019-05-23] MEDS: HEPARIN SODIUM,PORCINE 5,000 UNIT/ML 1 ML VIAL SQ SCH ×2 (07:44→12:14)
[2019-05-23] MEDS: FERROUS SULFATE 325 MG TAB PO SCH (08:05)
[2019-05-23] MEDS: POTASSIUM CHLORIDE ER 10 MEQ TAB.ER.PRT PO SCH ×2 (08:05→21:05)
[2019-05-23] MEDS: CARVEDILOL 3.125 MG TAB PO SCH ×2 (08:06→17:33)
[2019-05-23] MEDS: FUROSEMIDE 10 MG/ML 4 ML VIAL IV SCH (08:06)
[2019-05-23] MEDS: SPIRONOLACTONE 25 MG TAB PO SCH (08:06)
[2019-05-23] MEDS: ALLOPURINOL 100 MG TAB PO SCH ×2 (08:06→21:05)
[2019-05-23] MEDS: INSULIN ASPART (NovoLOG) 100 UNIT/ML VIAL SQ SCH ×3 (08:07→17:33)
[2019-05-23] MEDS: SODIUM BICARBONATE TAB 650 MG TAB PO SCH ×3 (09:22→22:49)
[2019-05-23] MEDS: INSULIN DETEMIR (LEVEMIR) 100 UNIT/ML SYR SQ SCH (09:22)
--- NOTE | 2019-05-23 10:53 | P.PN ---
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 We are following her secondary to shortness of breath and acute exacerbation of chronic diastolic heart failure. She is currently maintained on IV lasix 40 mg daily along with aldactone 25 mg daily. She is seen and examined sitting up in bed in no acute distress. She states she feels mildly better but not back to baseline. She continues to feel short of breath at rest. Blood pressure 125/76 heart rate 75 afebrile and maintaining oxygen saturation on nasal cannula. Laboratory data reviewed, sodium 141, potassium 4.5, creatinine 1.45, magnesium 2.4. She is maintaining a negative fluid balance. GENERAL: Well-appearing, well-nourished and in no acute distress. NECK: Supple without JVD or thyromegaly. LUNGS: Bibasila rales, no wheezes or rhonchi. Respiration equal and unlabored. HEART: Irregular rate and rhythm with systolic ejection murmur at the base, no rubs or gallops. S1 and S2 heard. EXTREMITIES: Normal range of motion, no edema. No clubbing or cyanosis. Peripheral pulses intact. ASSESSMENT Acute on chronic diastolic heart failure, BNP 5800 on admission Coronary artery disease s/p bypass grafting Persistent atrial fibrillation not on senior living anticoagulation secondary to GI bleeding in the past per the patient. Sick sinus syndrome s/p permanent pacemaker implantation COPD Hypertension Dyslipidemia Acute kidney injury Hypermagnesemia PLAN Echo has been ordered and will be reviewed. Continue IV diuresis for another 24 hours. Follow renal function and electrolytes in the morning. Further recommendations to follow. Nurse Practitioner note has been reviewed, I agree with a documented findings and plan of care. Patient was seen and examined. Objective - Vital Signs Vital signs: Vital Signs Temp 97.5 F L 05/23/19 07:00 Pulse 75 05/23/19 07:00 Resp 18 05/23/19 07:00 BP 125/76 05/23/19 07:00 Pulse Ox 95 05/23/19 07:00 Intake & Output 05/22/19 05/23/19 05/23/19 18:59 06:59 18:59 Intake Total 150 118 Output Total 602 800 800 Balance -601 -650 -682 Weight 82.3 kg 82.6 kg Intake: Oral 150 118 Output: Urine 602 800 800 Other: Voiding Method Toilet Toilet Toilet Bedside Commode # Voids 1 0 # Bowel Movements 1 - Labs CBC & Chem 7: 05/21/19 16:34 05/23/19 05:28 Labs: Abnormal Lab Results - Last 24 Hours (Table) 05/22/19 05/22/19 05/23/19 Range/Units 17:05 20:22 05:28 BUN 36 H (7-17) mg/dL Creatinine 1.45 H (0.52-1.04) mg/dL Glucose 166 H (74-99) mg/dL POC Glucose (mg/dL) 137 H 163 H (75-99) mg/dL Magnesium 2.4 H (1.6-2.3) mg/dL 05/23/19 Range/Units 06:36 BUN (7-17) mg/dL Creatinine (0.52-1.04) mg/dL Glucose (74-99) mg/dL POC Glucose (mg/dL) 168 H (75-99) mg/dL Magnesium (1.6-2.3) mg/dL
[2019-05-23 11:38] LABS: Glucose,Whole Blood 153 mg/dL (75-99)
--- NOTE | 2019-05-23 12:01 | ECHOF ---
Referral Reason:sob MEASUREMENTS -------- HEIGHT: 162.6 cm WEIGHT: 82.6 kg BP: 140/61 IVSd: 1.8 cm (0.6 - 1.1) LVIDd: 3.0 cm (3.9 - 5.3) LVPWd: 2.3 cm (0.6 - 1.1) IVSs: 2.4 cm LVIDs: 2.3 cm LVPWs: 2.4 cm LAESV Index (A-L): 63.10 ml/m Ao Diam: 2.5 cm (2.0 - 3.7) AV Cusp: 0.8 cm (1.5 - 2.6) LA Diam: 5.2 cm (2.7 - 3.8) AV maxP.13 mmHg AV meanP.39 mmHg RAP: 5.00 mmHg RVSP: 67.19 mmHg FINDINGS -------- Atrial fibrillation. This was a technically adequate study. The left ventricular size is normal. There is severe concentric left ventricular hypertrophy. Ove rall left ventricular systolic function is low-normal with, an EF between 50 - 55 %. Septal wall mo tion is delayed and consistent with prior cardiac surgery. The right ventricle is normal in size. Left atrium is severely dilated by volume. The right atrial size is normal. Electronic pacemaker lead seen in the right atrial cavity. Interatrial and interventricular septum intact. There is no evidence of aortic regurgitation. There is dzwkmspy-tk-[id number] aortic stenosis present. Peak/mean gradient across the valve is 51.13mmHg / 28.39mmHg. Severe mitral annular calcification present. Severe mitral regurgitation is present. Mild mitral stenosis , with a MVA of 3.2cm (by PHT) Moderate to severe tricuspid regurgitation present. There is severe pulmonary hypertension. The r ight ventricular systolic pressure, as measured by Doppler, is 67.19mmHg. Trace/mild (physiologic) pulmonic regurgitation. The aortic root size is normal. The inferior vena cava was not well visualized. There is no pericardial effusion. CONCLUSIONS -------- 1. Atrial fibrillation. 2. This was a technically adequate study. 3. The left ventricular size is normal. 4. There is severe concentric left ventricular hypertrophy. 5. Overall left ventricular systolic function is low-normal with, an EF between 50 - 55 %. 6. Septal wall motion is delayed and consistent with prior cardiac surgery. 7. The right ventricle is normal in size. 8. Left atrium is severely dilated by volume. 9. The right atrial size is normal. 10. Electronic pacemaker lead seen in the right atrial cavity. 11. Interatrial and interventricular septum intact. 12. There is no evidence of aortic regurgitation. 13. There is rsyogelo-tv-pbfzyv aortic stenosis present. 14. Peak/mean gradient across the valve is 51.13mmHg / 28.39mmHg. 15. Severe mitral annular calcification present. 16. Severe mitral regurgitation is present. 17. Mild mitral stenosis. 18. , with a MVA of 3.2cm (by PHT) 19. Moderate to severe tricuspid regurgitation present. 20. There is severe pulmonary hypertension. 21. The right ventricular systolic pressure, as measured by Doppler, is 67.19mmHg. 22. Trace/mild (physiologic) pulmonic regurgitation. 23. The aortic root size is normal. 24. The inferior vena cava was not well visualized. 25. There is no pericardial effusion. RING FACER: Carol Denise RDCS
--- NOTE | 2019-05-23 15:25 | P.PN ---
Subjective Progress Note Date: 05/23/19 Principal diagnosis: CHF exacerbation Patient was seen and examined. No acute events overnight. Patient reports improvement in her breathing. States that she is 60% back to normal. She denies any chest pain or palpitations. No nausea or vomiting. No fever or chills. Objective - Vital Signs Vital signs: Vital Signs Temp 98.3 F 05/23/19 11:09 Pulse 74 05/23/19 11:09 Resp 18 05/23/19 11:09 BP 166/64 05/23/19 11:09 Pulse Ox 95 05/23/19 11:09 Intake & Output 05/22/19 05/23/19 05/23/19 18:59 06:59 18:59 Intake Total 150 591 Output Total 367 849 3125 Balance -602 -650 -609 Weight 82.3 kg 82.6 kg Intake: Oral 150 591 Output: Urine 909 158 2124 Other: Voiding Method Toilet Toilet Toilet Bedside Commode # Voids 1 0 # Bowel Movements 1 - Exam General: [non toxic], [no distress], [appears at stated age] Derm: [warm], [dry] Head: [atraumatic], [normocephalic], [symmetric] Eyes: [EOMI], [no lid lag], [anicteric sclera] Mouth: [no lip lesion], [mucus membranes moist] Cardiovascular: [S1S2 reg], [no murmur], [positive DP pulse bilateral], Lungs: [Decreased breath sounds bilateral], [no rhonchi, no rales] , [no accessory muscle use] Abdominal: [soft], [ nontender to palpation], [no guarding], [no appreciable organomegaly] Ext: [no gross muscle atrophy], [lower extremity edema], [no contractures] Neuro: [no focal neuro deficits] Psych: [Alert], [oriented], [appropriate affect] - Labs CBC & Chem 7: 05/21/19 16:34 05/23/19 05:28 Labs: Abnormal Lab Results - Last 24 Hours (Table) 05/22/19 05/22/19 05/23/19 Range/Units 17:05 20:22 05:28 BUN 36 H (7-17) mg/dL Creatinine 1.45 H (0.52-1.04) mg/dL Glucose 166 H (74-99) mg/dL POC Glucose (mg/dL) 137 H 163 H (75-99) mg/dL Magnesium 2.4 H (1.6-2.3) mg/dL 05/23/19 05/23/19 Range/Units 06:36 11:35 BUN (7-17) mg/dL Creatinine (0.52-1.04) mg/dL Glucose (74-99) mg/dL POC Glucose (mg/dL) 168 H 153 H (75-99) mg/dL Magnesium (1.6-2.3) mg/dL Assessment and Plan Assessment: Acute on chronic diastolic CHF exacerbation Diabetes mellitus Chronic kidney disease Persistent atrial fibrillation with history of sick sinus syndrome Hypothyroidism Hypertension Echocardiogram shows severe concentric LVH with EF 50-55%. Plans: 1 more day of Lasix 40 mg IV daily. Continue beta ricky. Continue spironolactone. Strict intake and noted. Daily weights. Follow cardiology consultation. Mkufp-bb-denc glucose 153. Plans: Insulin sliding scale. Levemir 15 units, NovoLog 5 units 3 times a day with meals. Regular Accu-Cheks. Hypoglycemic precautions. Creatinine 1.45. Plans: Continue potassium chloride. Continue sodium bicarbonate tablets. Plans: Continue beta ricky. Plans: Continue Synthroid. BP 166/64. Plans: Continue beta ricky. Monitor vitals, adjust medications as necessary. Continue diuresis for 1 more day. Cardiology on board. Likely DC tomorrow.
[2019-05-23 17:23] LABS: Glucose,Whole Blood 114 mg/dL (75-99)
[2019-05-23 19:49] LABS: Glucose,Whole Blood 202 mg/dL (75-99)
[2019-05-24] MEDS: HEPARIN SODIUM,PORCINE 5,000 UNIT/ML 1 ML VIAL SQ SCH ×4 (01:08→21:09)
[2019-05-24] MEDS: LEVOTHYROXINE 75 MCG TAB PO SCH (06:04)
[2019-05-24 07:18] LABS: Glucose,Whole Blood 134 mg/dL (75-99)
[2019-05-24] MEDS: INSULIN ASPART (NovoLOG) 100 UNIT/ML VIAL SQ SCH ×6 (07:29→17:29)
[2019-05-24] MEDS: INSULIN DETEMIR (LEVEMIR) 100 UNIT/ML SYR SQ SCH (07:29)
[2019-05-24] MEDS: SPIRONOLACTONE 25 MG TAB PO SCH (07:31)
[2019-05-24] MEDS: SODIUM BICARBONATE TAB 650 MG TAB PO SCH ×3 (07:31→21:07)
[2019-05-24] MEDS: FUROSEMIDE 10 MG/ML 4 ML VIAL IV SCH (07:31)
[2019-05-24] MEDS: POTASSIUM CHLORIDE ER 10 MEQ TAB.ER.PRT PO SCH ×2 (07:31→21:07)
[2019-05-24] MEDS: CARVEDILOL 3.125 MG TAB PO SCH ×2 (07:32→17:28)
[2019-05-24] MEDS: FERROUS SULFATE 325 MG TAB PO SCH (07:32)
[2019-05-24] MEDS: ALLOPURINOL 100 MG TAB PO SCH ×2 (07:32→21:07)
[2019-05-24 07:56] LABS: Calcium 9.1 mg/dL (8.4-10.2); Magnesium 2.4 mg/dL (1.6-2.3); Potassium 4.4 mmol/L (3.5-5.1)
[2019-05-24 11:05] LABS: Glucose,Whole Blood 193 mg/dL (75-99)
--- NOTE | 2019-05-24 11:13 | P.DS ---
Providers Date of admission: 05/23/19 15:10 Expected date of discharge: 05/24/19 Attending physician: Macho Nolan MD Consults: 05/21/19 18:23 Consult Physician Routine Consulting Provider: Tato Garcia Consult Reason/Comments: chf Do you want consulting provider notified?: Yes Primary care physician: [facility] Course: 88-year-old female with past medical history of coronary artery disease status post CABG, diastolic congestive heart failure, pacemaker secondary to sick sinus syndrome, atrial fibrillation, and prior aortic valve replacement who presented to the emergency department with complaints of shortness of breath. On arrival to the ER she underwent an extensive evaluation. Her initial vital signs were within normal limits. Initial laboratory analysis demonstrated an elevated BNP at 5800 as well as an elevated creatinine at 1.246 consistent with her baseline. Chest x-ray showed small pleural effusions. Troponin was negativ e. There is concern for congestive heart failure and she was started on IV Lasix. She was placed in observation for further monitoring. On the morning of 05/22 she had had significant improvement in her breathing which was not yet back to baseline. Cardiology had been consulted. The plan was to maintain IV Lasix and repeat echocardiogram in the morning to assess for structure and function. Echocardiogram was done which showed severe concentric LVH with EF showing 50- 55%. Patient showed considerable improvement throughout her hospitalization. Patient was seen and examined. No acute events overnight. Patient reports slight improvement in her breathing from yesterday. Patient states that she continues to feel short of breath with ambulation to the washroom. She denies any chest pain or palpitations. No nausea or vomiting. No fever or chills. General: [non toxic], [no distress], [appears at stated age] Derm: [warm], [dry] Head: [atraumatic], [normocephalic], [symmetric] Eyes: [EOMI], [no lid lag], [anicteric sclera] Mouth: [no lip lesion], [mucus membranes moist] Cardiovascular: [S1S2 reg], [no murmur], [positive DP pulse bilateral], Lungs: [Decreased breath sounds bilateral], [no rhonchi, no rales] , [no accessory muscle use] Abdominal: [soft], [ nontender to palpation], [no guarding], [no appreciable organomegaly] Ext: [no gross muscle atrophy], [lower extremity edema], [no contractures] Neuro: [no focal neuro deficits] Psych: [Alert], [oriented], [appropriate affect] Acute on chronic diastolic CHF exacerbation Diabetes mellitus Chronic kidney disease Persistent atrial fibrillation with history of sick sinus syndrome Hypothyroidism Hypertension Echocardiogram shows severe concentric LVH with EF 50-55%. Plans: Possible transition to PO Lasix from IV. Continue beta ricky. Continue spironolactone. Strict intake and noted. Daily weights. Follow cardiology consultation. Axlqn-[id number] glucose 153. Plans: Insulin sliding scale. Levemir 15 units, NovoLog 5 units 3 times a day with meals. Regular Accu-Cheks. Hypoglycemic precautions. Creatinine 1.17. Plans: Continue potassium chloride. Continue sodium bicarbonate tablets. Plans: Continue beta ricky. Plans: Continue Synthroid. BP 108/61. Plans: Continue beta ricky. Monitor vitals, adjust medications as necessary. [DC planning pending cardiology recommendation. Follow 6 minute walk test. She will need adequate follow up with Cardiology and PCP post discharge.] Pertinent Studies: Chest x-ray, echo Patient Condition at Discharge: Stable Plan - Discharge Summary Discharge Rx Participant: No New Discharge Prescriptions: Continue Carvedilol [Coreg] 3.125 mg PO BID Allopurinol 100 mg PO BID Levothyroxine Sodium [Synthroid] 75 mcg PO DAILY Insulin Lispro [humaLOG Kwikpen] 5 unit SQ AC-TID PRN PRN Reason: Blood Sugar - High Sodium Bicarbonate Tab 650 mg PO TID tab Vit C/E/Zn/Coppr/Lutein/Zeaxan [Preservision Areds 2 Softgel] 1 cap PO BID Spironolactone [Aldactone] 25 mg PO DAILY Potassium Chloride ER [K-Dur 10] 10 meq PO BID Ferrous Sulfate [Iron (65 MG Elemental)] 325 mg PO DAILY Insulin Detemir (Levemir) [Levemir] 20 unit SQ AC-BRKFST Furosemide [Lasix] 80 mg PO BID Discharge Medication List Carvedilol [Coreg] 3.125 mg PO BID 03/25/14 [History] Allopurinol 100 mg PO BID 03/07/15 [History] Levothyroxine Sodium [Synthroid] 75 mcg PO DAILY 11/03/17 [History] Insulin Lispro [humaLOG Kwikpen] 5 unit SQ AC-TID PRN 12/29/17 [History] Sodium Bicarbonate Tab 650 mg PO TID tab 12/31/17 [Rx] Ferrous Sulfate [Iron (65 MG Elemental)] 325 mg PO DAILY 05/21/19 [History] Furosemide [Lasix] 80 mg PO BID 05/21/19 [History] Insulin Detemir (Levemir) [Levemir] 20 unit SQ AC-BRKFST 05/21/19 [History] Potassium Chloride ER [K-Dur 10] 10 meq PO BID 05/21/19 [History] Spironolactone [Aldactone] 25 mg PO DAILY 05/21/19 [History] Vit C/E/Zn/Coppr/Lutein/Zeaxan [Preservision Areds 2 Softgel] 1 cap PO BID 05/21/19 [History] Follow up Appointment(s)/Referral(s): Tato Garcia MD [STAFF PHYSICIAN] - 2 Weeks Jesse Amor MD [Primary Care Provider] - 1-2 days Activity/Diet/Wound Care/Special Instructions: Diet: Water restricted Cardiac diet. Low salt diet. Follow-up PCP within 1-2 days of discharge. Follow up Cardiology within 1 week of discharge. Please take all medication as advised. Discharge Disposition: HOME SELF-CARE
--- NOTE | 2019-05-24 11:34 | P.PN ---
Subjective This is a pleasant 88-year-old female past medical history significant for coronary artery disease status post bypass grafting, diastolic heart failure, sick sinus syndrome status post permanent pacemaker implantation, status post aortic valve replacement, persistent atrial fibrillation not on moth exterminator anticoagulation secondary to GI bleeding, COPD, hypertension and dyslipidemia. We are following her secondary to shortness of breath and acute exacerbation of chronic diastolic heart failure. She is currently maintained on IV lasix 40 mg daily along with aldactone 25 mg daily. She is seen and examined sitting up in bed in no acute distress. She states she feels mildly better but not back to baseline. She continues to feel short of breath at rest. Blood pressure 125/76 heart rate 75 afebrile and maintaining oxygen saturation on nasal cannula. Laboratory data reviewed, sodium 141, potassium 4.5, creatinine 1.45, magnesium 2.4. She is maintaining a negative fluid balance. 05/24/2019 Pt is seen and examined laying flat in bed. She states at rest she feels no shortness of breath, however with any mild exertion she feels short of breath. She denies chest pain, dizziness or palpitations. Echocardiogram reveals preserved LV systolic function with ejection fraction 50-55%, septal wall motion the Lasix secondary to cardiac surgery, severe LVH, moderate to severe aortic stenosis with a mean gradient of 28 mmHg, severe mitral regurgitation, mild mitral stenosis with a mitral valve area 3.2 cm, severe pulmonary hypertension with an RVSP of 67 mmHg and severe tricuspid regurgitation. Laboratory data reviewed, sodium 139, potassium 4.4, creatinine 1.17 and magnesium 2.4. Blood pressure 108/61 heart rate 66 afebrile maintaining oxygen saturation on nasal cannula. Maintaining a negative fluid balance. GENERAL: Well-appearing, well-nourished and in no acute distress. NECK: Supple without JVD or thyromegaly. LUNGS: No rales, wheezes or rhonchi. Respiration equal and unlabored. HEART: Irregular rate and rhythm with systolic ejection murmur at the base, no rubs or gallops. S1 and S2 heard. EXTREMITIES: Normal range of motion, no edema. No clubbing or cyanosis. Peripheral pulses intact. ASSESSMENT Acute on chronic diastolic heart failure, BNP 5800 on admission Pulmonary hypertension Valvular heart disease, aortic stenosis, mitral regurgitations and tricuspid regurgitation Coronary artery disease s/p bypass grafting Persistent atrial fibrillation not on moth exterminator anticoagulation secondary to GI bleeding in the past per the patient. Sick sinus syndrome s/p permanent pacemaker implantation COPD Hypertension Dyslipidemia Acute kidney injury Hypermagnesemia PLAN Recommend evaluation by physical therapy. She verbalizes concerns about completing her ADL's at home independently. Increase activity and ambulation. Check room air saturation after activity. Nurse Practitioner note has been reviewed, I agree with a documented findings and plan of care. Patient was seen and examined. Objective - Vital Signs Vital signs: Vital Signs Temp 98.1 F 05/24/19 05:00 Pulse 66 05/24/19 05:00 Resp 18 05/24/19 05:00 BP 108/61 05/24/19 05:00 Pulse Ox 94 L 05/24/19 11:19 Intake & Output 05/23/19 05/24/19 05/24/19 18:59 06:59 18:59 Intake Total 591 900 240 Output Total 1200 300 350 Balance -609 600 -110 Weight 82 kg Intake: Oral 591 900 240 Output: Urine 1200 300 350 Other: Voiding Method Toilet Toilet # Voids 1 - Labs CBC & Chem 7: 05/21/19 16:34 05/24/19 06:48 Labs: Abnormal Lab Results - Last 24 Hours (Table) 05/23/19 05/23/19 05/23/19 Range/Units 11:35 17:20 19:48 BUN (7-17) mg/dL Creatinine (0.52-1.04) mg/dL Glucose (74-99) mg/dL POC Glucose (mg/dL) 153 H 114 H 202 H (75-99) mg/dL Magnesium (1.6-2.3) mg/dL 05/24/19 05/24/19 05/24/19 Range/Units 06:48 07:06 11:04 BUN 38 H (7-17) mg/dL Creatinine 1.17 H (0.52-1.04) mg/dL Glucose 135 H (74-99) mg/dL POC Glucose (mg/dL) 134 H 193 H (75-99) mg/dL Magnesium 2.4 H (1.6-2.3) mg/dL
[2019-05-24] MEDS ORDERED: FUROSEMIDE 10 MG/ML 4 ML VIAL IV ONE (14:00)
[2019-05-24 17:21] LABS: Glucose,Whole Blood 139 mg/dL (75-99)
[2019-05-24 21:00] LABS: Glucose,Whole Blood 119 mg/dL (75-99)
[2019-05-25] MEDS: LEVOTHYROXINE 75 MCG TAB PO SCH (06:16)
[2019-05-25 07:05] LABS: Glucose,Whole Blood 132 mg/dL (75-99)
[2019-05-25] MEDS: SODIUM BICARBONATE TAB 650 MG TAB PO SCH (07:50)
[2019-05-25] MEDS: POTASSIUM CHLORIDE ER 10 MEQ TAB.ER.PRT PO SCH (07:51)
[2019-05-25] MEDS: FERROUS SULFATE 325 MG TAB PO SCH (07:51)
[2019-05-25] MEDS: SPIRONOLACTONE 25 MG TAB PO SCH (07:51)
[2019-05-25] MEDS: FUROSEMIDE 10 MG/ML 4 ML VIAL IV SCH (07:51)
[2019-05-25] MEDS: CARVEDILOL 3.125 MG TAB PO SCH (07:51)
[2019-05-25] MEDS: ALLOPURINOL 100 MG TAB PO SCH (07:51)
[2019-05-25] MEDS: INSULIN DETEMIR (LEVEMIR) 100 UNIT/ML SYR SQ SCH (07:51)
[2019-05-25] MEDS: INSULIN ASPART (NovoLOG) 100 UNIT/ML VIAL SQ SCH ×4 (07:52→12:55)
[2019-05-25] MEDS: HEPARIN SODIUM,PORCINE 5,000 UNIT/ML 1 ML VIAL SQ SCH ×2 (07:52→16:12)
--- NOTE | 2019-05-25 09:03 | P.PN ---
Subjective This is a pleasant 88-year-old female past medical history significant for coronary artery disease status post bypass grafting, diastolic heart failure, sick sinus syndrome status post permanent pacemaker implantation, status post aortic valve replacement, persistent atrial fibrillation not on director long term care anticoagulation secondary to GI bleeding, COPD, hypertension and dyslipidemia. We are following her secondary to shortness of breath and acute exacerbation of chronic diastolic heart failure. She is currently maintained on IV lasix 40 mg daily along with aldactone 25 mg daily. She is seen and examined sitting up in bed in no acute distress. She states she feels mildly better but not back to baseline. She continues to feel short of breath at rest. Blood pressure 125/76 heart rate 75 afebrile and maintaining oxygen saturation on nasal cannula. Laboratory data reviewed, sodium 141, potassium 4.5, creatinine 1.45, magnesium 2.4. She is maintaining a negative fluid balance. 05/24/2019 Pt is seen and examined laying flat in bed. She states at rest she feels no shortness of breath, however with any mild exertion she feels short of breath. She denies chest pain, dizziness or palpitations. Echocardiogram reveals preserved LV systolic function with ejection fraction 50-55%, septal wall motion the Lasix secondary to cardiac surgery, severe LVH, moderate to severe aortic stenosis with a mean gradient of 28 mmHg, severe mitral regurgitation, mild mitral stenosis with a mitral valve area 3.2 cm, severe pulmonary hypertension with an RVSP of 67 mmHg and severe tricuspid regurgitation. Laboratory data reviewed, sodium 139, potassium 4.4, creatinine 1.17 and magnesium 2.4. Blood pressure 108/61 heart rate 66 afebrile maintaining oxygen saturation on nasal cannula. Maintaining a negative fluid balance. 05/25/2019 Patient seen and examined sitting up eating breakfast. She states she is feeling much better than when she came into the hospital with some ongoing shortness of breath first thing in the morning. She is requesting oxygen at home. She denies chest pain, dizziness or palpitations. She was up and ambulating on the unit. She does not meet requirements for home oxygen per case investigator as she maintains oxygen saturation with activity on room air. Blood pressure 133/71 heart rate 75 afebrile and maintaining oxygen saturations on room air. Laboratory data pending for today. Currently maintained on lasix 40 mg IV daily. She did receive a dose already today. Lengthy discussion had regarding her medications and how she takes them at home. She states she is only taking lasix 80 mg once/day due to increased urination. She does not take the PM dose at all. She also discusses her diet over the last few weeks consisting of mostly fast food, hot dogs and hamburgers. GENERAL: Well-appearing, well-nourished and in no acute distress. NECK: Supple without JVD or thyromegaly. LUNGS: No rales, wheezes or rhonchi. Respiration equal and unlabored. HEART: Irregular rate and rhythm with systolic ejection murmur at the base, no rubs or gallops. S1 and S2 heard. EXTREMITIES: Normal range of motion, no edema. No clubbing or cyanosis. Peripheral pulses intact. ASSESSMENT Acute on chronic diastolic heart failure, BNP 5800 on admission Pulmonary hypertension Valvular heart disease, aortic stenosis, mitral regurgitations and tricuspid regurgitation Coronary artery disease s/p bypass grafting Persistent atrial fibrillation not on long-term anticoagulation secondary to GI bleeding in the past per the patient. Sick sinus syndrome s/p permanent pacemaker implantation COPD Hypertension Dyslipidemia Acute kidney injury Hypermagnesemia PLAN Discussed with the patient medication compliance and the rationale for taking her diuretics. Low sodium diet recommended. Advised her to take her aldactone at night and see if this helps her am shortness of breath. Stable for discharge from a cardiac perspective. Follow up in the office in 2 weeks. Nurse Practitioner note has been reviewed, I agree with a documented findings and plan of care. Patient was seen and examined. Objective - Vital Signs Vital signs: Vital Signs Temp 97.9 F 05/25/19 05:00 Pulse 75 05/25/19 05:00 Resp 18 05/25/19 05:00 BP 133/71 05/25/19 05:00 Pulse Ox 93 L 05/25/19 05:00 Intake & Output 05/24/19 05/25/19 05/25/19 18:59 06:59 18:59 Intake Total 860 240 Output Total 350 1000 Balance 510 -760 Weight 81.5 kg Intake: Oral 860 240 Output: Urine 350 1000 Other: Voiding Method Toilet # Voids 3 1 - Labs CBC & Chem 7: 05/21/19 16:34 05/24/19 06:48 Labs: Abnormal Lab Results - Last 24 Hours (Table) 05/24/19 05/24/19 05/24/19 Range/Units 11:04 17:18 20:59 POC Glucose (mg/dL) 193 H 139 H 119 H (75-99) mg/dL 05/25/19 Range/Units 07:04 POC Glucose (mg/dL) 132 H (75-99) mg/dL
[2019-05-25 09:07] LABS: Calcium 9.7 mg/dL (8.4-10.2); Potassium 4.7 mmol/L (3.5-5.1)
--- NOTE | 2019-05-25 09:22 | P.PN ---
Subjective Progress Note Date: 05/25/19 Principal diagnosis: CHF exacerbation Patient was seen and examined. No acute events overnight. She reports improvement in her breathing since yesterday. States she gets thirsty, requesting more water. Has lost 1 kg in the past in the past 2 days. Objective - Vital Signs Vital signs: Vital Signs Temp 97.9 F 05/25/19 05:00 Pulse 75 05/25/19 05:00 Resp 18 05/25/19 05:00 BP 133/71 05/25/19 05:00 Pulse Ox 93 L 05/25/19 05:00 Intake & Output 05/24/19 05/25/19 05/25/19 18:59 06:59 18:59 Intake Total 860 240 Output Total 350 1000 Balance 510 -760 Weight 81.5 kg Intake: Oral 860 240 Output: Urine 350 1000 Other: Voiding Method Toilet # Voids 3 1 - Exam General: [non toxic], [no distress], [appears at stated age] Derm: [warm], [dry] Head: [atraumatic], [normocephalic], [symmetric] Eyes: [EOMI], [no lid lag], [anicteric sclera] Mouth: [no lip lesion], [mucus membranes moist] Cardiovascular: [S1S2 reg], [no murmur], [positive DP pulse bilateral], Lungs: [Decreased breath sounds bilateral], [no rhonchi, no rales] , [no accessory muscle use] Abdominal: [soft], [ nontender to palpation], [no guarding], [no appreciable organomegaly] Ext: [no gross muscle atrophy], [lower extremity edema which has improved from admission], [no contractures] Neuro: [no focal neuro deficits] Psych: [Alert], [oriented], [appropriate affect] - Labs CBC & Chem 7: 05/21/19 16:34 05/25/19 08:22 Labs: Abnormal Lab Results - Last 24 Hours (Table) 05/24/19 05/24/19 05/24/19 Range/Units 11:04 17:18 20:59 POC Glucose (mg/dL) 193 H 139 H 119 H (75-99) mg/dL 05/25/19 Range/Units 07:04 POC Glucose (mg/dL) 132 H (75-99) mg/dL Assessment and Plan Assessment: Acute on chronic diastolic CHF exacerbation Diabetes mellitus Chronic kidney disease Persistent atrial fibrillation with history of sick sinus syndrome Hypothyroidism Hypertension Echocardiogram shows severe concentric LVH with EF 50-55%. Plans: Transition to home dose of Lasix today. Continue beta ricky. Continue spironolactone. Strict intake and noted. Daily weights. Follow cardiology consultation. Passed 6 minute walk test, no need for home O2. Hfkyy-jt-kklq glucose 132. Plans: Insulin sliding scale. Levemir 15 units, NovoLog 5 units 3 times a day with meals. Regular Accu-Cheks. Hypoglycemic precautions. Creatinine 1.17. Plans: Continue potassium chloride. Continue sodium bicarbonate tablets. Avoid nephrotoxins. Plans: Continue beta ricky. Plans: Continue Synthroid. BP 133/71. Plans: Continue beta ricky. Monitor vitals, adjust medications as necessary. [She will need adequate follow up with Cardiology and PCP post discharge.]
[2019-05-25 10:22] VITALS: RESP 17
[2019-05-25 11:22] LABS: Glucose,Whole Blood 177 mg/dL (75-99)
[2019-05-25 11:57] VITALS: BP 129/70; PULSE 83; TEMP 97.1
[2019-05-25] MEDS ORDERED: SPIRONOLACTONE 25 MG TAB PO SCH (21:00)
[2019-05-26] MEDS ORDERED: FUROSEMIDE 80 MG TAB PO SCH (09:00)
== END 2019-05-25 16:40 | disposition home or self-care (01) | DRG 291 ==
LOC: EC 16:12 → 1SOBS 18:23 → OBSVTOIN 05-23 15:10 → 3NMEDONC 05-23 15:33
PROVIDERS: ADMIT Internal Medicine; ATTEND Internal Medicine
DX: I13.0 Hypertensive heart and chronic kidney disease with heart failure and stage 1 through stage 4 chronic kidney disease, or unspecified chronic kidney disease (principal); I50.33 Acute on chronic diastolic (congestive) heart failure; I48.1 Persistent atrial fibrillation; N17.9 Acute kidney failure, unspecified; I49.5 Sick sinus syndrome; I27.20 Pulmonary hypertension, unspecified; J44.9 Chronic obstructive pulmonary disease, unspecified; N18.9 Chronic kidney disease, unspecified; M10.9 Gout, unspecified; Z66 Do not resuscitate; I25.10 Atherosclerotic heart disease of native coronary artery without angina pectoris; I08.3 Combined rheumatic disorders of mitral, aortic and tricuspid valves; H54.62 Unqualified visual loss, left eye, normal vision right eye; H40.9 Unspecified glaucoma; H35.30 Unspecified macular degeneration; G47.30 Sleep apnea, unspecified; F32.9 Major depressive disorder, single episode, unspecified; E83.41 Hypermagnesemia; E78.5 Hyperlipidemia, unspecified; E11.22 Type 2 diabetes mellitus with diabetic chronic kidney disease; E03.9 Hypothyroidism, unspecified; D64.9 Anemia, unspecified; Z79.890 Hormone replacement therapy; Z79.899 Other long term (current) drug therapy; Z79.4 Long term (current) use of insulin; Z82.49 Family history of ischemic heart disease and other diseases of the circulatory system; Z83.3 Family history of diabetes mellitus; Z86.711 Personal history of pulmonary embolism; Z87.891 Personal history of nicotine dependence; Z85.828 Personal history of other malignant neoplasm of skin; Z95.0 Presence of cardiac pacemaker; Z90.710 Acquired absence of both cervix and uterus; Z95.2 Presence of prosthetic heart valve; Z95.1 Presence of aortocoronary bypass graft; Z95.828 Presence of other vascular implants and grafts; Z88.8 Allergy status to other drugs, medicaments and biological substances; Z88.6 Allergy status to analgesic agent; Z91.030 Bee allergy status; Z99.89 Dependence on other enabling machines and devices; Z90.89 Acquired absence of other organs; Z90.49 Acquired absence of other specified parts of digestive tract
CPT/HCPCS: 36415; 71046; 80048; 80053; 83735; 83880; 84484; 85025; 85610; 85730; 93005; 93306; 96361; 96374; 99285

== ENCOUNTER → 2019-08-30 | Outpatient (CLI) | payer MEDICARE ==
--- NOTE | 2019-08-30 15:30 | CT ---
EXAMINATION TYPE: CT abdomen wo con DATE OF EXAM: 08/30/2019 COMPARISON: None HISTORY: 89-year-old female with Generalized pain. History states liver mass right lobe. TECHNIQUE: Contiguous axial scanning of the abdomen without IV contrast. Coronal and sagittal reconst ructions performed. CT DLP: 423 mGycm Automated exposure control for dose reduction was used. FINDINGS: Median sternotomy wires. Pacemaker leads with right atrial and right ventricular leads. Dense mitral annular calcifications. Heart borderline enlarged without pericardial effusion. Retained epicardial p acer leads. Lung bases show some strandy atelectasis. No pleural effusion. Low to intermediate density circumscribed area in the posterior mediastinum of the lower thorax measu res 2.2 x 1.6 cm versus 2.2 x 1.2 cm on 03/07/2015. Overall stability suggests a benign etiology. Possi ble lymphocele or duplication cyst. There is trace perihepatic ascites. Lack of IV contrast limits assessment of the solid abdominal viscera and vascular structures. There is some focal hypodensity along the posterior superior left liver lobe measuring 2.0 cm, refer to axial image 17 and coronal image 42. This is best identified on high contrast liver windows due to the lack of contrast. Adrenal glands, spleen with a couple hilar splenule is, and pancreas show no gross abnormality. Moderate atherosclerotic calcifications abdominal aorta and iliac arteries. An IVC filter is present. No aortic aneurysm. Moderate-sized fatty umbilical hernia measuring 4.9 cm wide. Significant hypodensity measuring 1.5 cm from the posterior right kidney probable cyst. Smaller lesio n from the anterior left kidney measuring 7 mm. Lack of IV contrast and small size makes these indete rminate. Additional perisplenic ascites. Mild ascites fluid within the patient's umbilical hernia. Right lower quadrant soft tissue masses along the left lateral wall of the ascending colon measures 9 .3 x 6.4 x 6.2 cm. Adjacent soft tissue omental/peritoneal mass anteriorly measures 4.6 x 2.0 cm. A t hird soft tissue deposit just adjacent measures 2.1 cm. There may be an additional soft tissue deposits on the contralateral, left side, partially visualized measuring at least 3.3 cm. Otherwise, no mesenteric or retroperitoneal lymphadenopathy in the upper to mid abdomen. The pelvis is not imaged. Bones: Hypertrophic facet arthropathy. Moderate degenerative disc disease. Grade 1 anterolisthesis at L4-L5. IMPRESSION: 1. LARGE RIGHT LOWER QUADRANT MASS ALONG THE LEFT LATERAL WALL OF THE ASCENDING COLON MEASURES 9.3 X 6.4 X 6.2 CM. TWO ADJACENT PERITONEAL DEPOSITS MEASURE 4.6 AND 2.1 CM. NEOPLASM/METASTATIC DISEASE A RE SUGGESTED. RECOMMEND TISSUE SAMPLING TO DETERMINE THE PRIMARY SITE. 2. VERY SUBTLE 2.0 CM LESION WITHIN THE POSTERIOR, CENTRAL ASPECT OF THE LEFT LIVER LOBE. THIS LESION IS INDETERMINATE AND METASTATIC DISEASE IS NOT EXCLUDED. 3. MILD PERISPLENIC AND PERIHEPATIC ASCITES. MODERATE SIZED FATTY UMBILICAL HERNIA MEASURING 4.9 CM W SHERRILL ALSO CONTAINS MILD ASCITES FLUID. 4. DIFFICULT TO EXCLUDE AN ADDITIONAL 3.3 CM PARTIALLY VISUALIZED PERITONEAL DEPOSIT ON THE CONTRALAT ERAL LEFT SIDE.
== END | disposition home or self-care (01) ==
LOC: RADCTMAIN 13:07
PROVIDERS: ATTEND Family Medicine
DX: K63.89 Other specified diseases of intestine (principal); R18.8 Other ascites; K42.9 Umbilical hernia without obstruction or gangrene; K76.9 Liver disease, unspecified; K66.8 Other specified disorders of peritoneum
CPT/HCPCS: 36415; 74150; 82565; 84520

== ENCOUNTER 2019-09-05 13:30 | Inpatient (IN) | payer MEDICARE ==
[2019-09-05] MEDS ORDERED: SODIUM CHLORIDE 0.9% 500 ML 500 ML IV ONE (14:02)
--- NOTE | 2019-09-05 14:08 | ED ---
General Adult HPI - General Chief complaint: GI Bleed Stated complaint: weakness Time Seen by Provider: 09/05/19 13:45 Source: patient, RN notes reviewed, old records reviewed Mode of arrival: EMS Limitations: physical limitation - History of Present Illness Initial comments: This is an 89-year-old female presents to the emergency department stating that about a week ago she was diagnosed with abdominal cancer some sort. Patient states today she started having blood per rectum and she's been feeling weak. Patient denies being on any blood thinners. Patient states her abdomen is benign hurt since April and it continues to hurt now and it is not much different than it has been. Patient denies any fever chills per patient denies any vomiting or diarrhea. Patient denies any chest pain or palpitations. Patient denies being lightheaded but does states she is generally weak. Patient denies any headache patient denies any numbness or focal weakness - Related Data Home Medications Medication Instructions Recorded Confirmed Carvedilol [Coreg] 3.125 mg PO BID 03/25/14 05/21/19 Allopurinol 100 mg PO BID 03/07/15 05/21/19 Levothyroxine Sodium [Synthroid] 75 mcg PO DAILY 11/03/17 05/21/19 Insulin Lispro [humaLOG Kwikpen] 5 unit SQ AC-TID PRN 12/29/17 05/21/19 Ferrous Sulfate [Iron (65 MG 325 mg PO DAILY 05/21/19 05/21/19 Elemental)] Furosemide [Lasix] 80 mg PO BID 05/21/19 05/21/19 Insulin Detemir (Levemir) [Levemir] 20 unit SQ AC-BRKFST 05/21/19 05/21/19 Potassium Chloride ER [K-Dur 10] 10 meq PO BID 05/21/19 05/21/19 Spironolactone [Aldactone] 25 mg PO DAILY 05/21/19 05/21/19 Vit C/E/Zn/Coppr/Lutein/Zeaxan 1 cap PO BID 05/21/19 05/21/19 [Preservision Areds 2 Softgel] Previous Rx's Medication Instructions Recorded Sodium Bicarbonate Tab 650 mg PO TID tab 12/31/17 Allergies Allergy/AdvReac Type Severity Reaction Status Date / Time aspirin Allergy Unknown Verified 09/05/19 13:51 bee pollen [Bee Pollen] Allergy Anaphylaxis Verified 09/05/19 13:51 celecoxib [From Celebrex] Allergy Unknown Verified 09/05/19 13:51 blood thinners AdvReac Severe see comment Uncoded 09/05/19 13:51 URIC ACIDS AdvReac GOUT Uncoded 09/05/19 13:51 Review of Systems ROS Statement: Those systems with pertinent positive or pertinent negative responses have been documented in the HPI. ROS Other: All systems not noted in ROS Statement are negative. Past Medical History Past Medical History: Atrial Fibrillation, Coronary Artery Disease (CAD), Cancer, Heart Failure, Diabetes Mellitus, GI Bleed, Hypertension, Osteoarthritis (OA), Pneumonia, Pulmonary Embolus (PE), Sleep Apnea/CPAP/BIPAP, Thyroid Di sorder Additional Past Medical History / Comment(s): gout, chronic pain in back hip and leg, diverticulitis, LT EYE BLIND,GLAUCOMA, MAC DEGENERATION RT EYE, MURMUR, DIVERTICULAR DX.OVARIAN CYSTS,SKIN CA,ANEMIA, TRACHEBRONCHITIS WITH REACTIVE BRONCHOSPASM.used to use cpap machine . Increased shortness of breath with activity and at rest. ARACELI CARPAL TUNNEL. abd cncer History of Any Multi-Drug Resistant Organisms: None Reported Past Surgical History: Appendectomy, Bowel Resection, Breast Surgery, Cardiac Valve Replacement, Cholecystectomy, Coronary Bypass/CABG, Heart Catheterization, Hysterectomy, Orthopedic Surgery, Pacemaker, Tonsillectomy Additional Past Surgical History / Comment(s): pacemaker, AORTIC VALVE REPLACEMENT(TISSUE) AND 1 VESSEL BYPASS, CYST REMOVED FROM HAND/HEAD,BOWEL RESECTION D/T DIVERTICULITIS.KRISTYN FILTER, COLONOCOSPY/POLYPECTOMY/EGD, PAST LT EYE SX-DAMAGED THE OPTIC NERVE-BLIND LT EYE.lt knee arthrosopy, skin cancer removed from hand/head/back Past Anesthesia/Blood Transfusion Reactions: No Reported Reaction Type of Cardiac Device: Permanent Pacemaker Device Placement Date:: 2010 Past Psychological History: Depression Smoking Status: Former smoker Past Alcohol Use History: None Reported Past Drug Use History: None Reported - Past Family History Brother(s) History Unknown: Yes Father Family Medical History: Cancer Additional Family Medical History / Comment(s): ALCOHOLIC-- 1969 Mother Family Medical History: Cancer, Coronary Artery Disease (CAD), Dementia, Diabetes Mellitus Additional Family Medical History / Comment(s): 1985 General Exam - General Exam Comments Initial Comments: GENERAL: Patient is well-developed and well-nourished. Patient is nontoxic and well- hydrated and is in mild distress. ENT: Neck is soft and supple. No significant lymphadenopathy is noted. Oropharynx is clear. Moist mucous membranes. Neck has full range of motion without eliciting any pain. EYES: The sclera were anicteric and conjunctiva were pink and moist. Extraocular movements were intact and pupils were equal round and reactive to light. Eyelids were unremarkable. PULMONARY: Unlabored respirations. Good breath sounds bilaterally. No audible rales rhonchi or wheezing was noted. CARDIOVASCULAR: There is a regular rate and rhythm without any murmurs gallops or rubs. ABDOMEN: Soft and nontender with normal bowel sounds. No palpable organomegaly was noted. There is no palpable pulsatile mass. SKIN: Skin is clear with no lesions or rashes and otherwise unremarkable. NEUROLOGIC: Patient is alert and oriented x3. Cranial nerves II through XII are grossly intact. Motor and sensory are also intact. Normal speech, volume and content. Symmetrical smile. MUSCULOSKELETAL: Normal extremities with adequate strength and full range of motion. LYMPHATICS: No significant lymphadenopathy is noted PSYCHIATRIC: Normal psychiatric evaluation. Limitations: physical limitation Course Vital Signs 09/05/19 09/05/19 13:43 15:15 Temperature 98.4 F Pulse Rate 85 73 Respiratory 18 18 Rate Blood Pressure 133/100 133/101 O2 Sat by Pulse 96 98 Oximetry Medical Decision Making - Medical Decision Making I spoke with Dr. beaulieu agreed to admit the patient admitted the patient wrote admitting orders. - Lab Data Result diagrams: 09/05/19 14:13 09/05/19 14:13 Lab Results 09/05/19 09/05/19 09/05/19 Range/Units 14:13 14:13 14:13 WBC 9.6 (3.8-10.6) k/uL RBC 3.07 L (3.80-5.40) m/uL Hgb 9.2 L (11.4-16.0) gm/dL Hct 29.1 L (34.0-46.0) % MCV 94.6 (80.0-100.0) fL MCH 29.9 (25.0-35.0) pg MCHC 31.7 (31.0-37.0) g/dL RDW 15.9 H (11.5-15.5) % Plt Count 240 (150-450) k/uL Neutrophils % 77 % Lymphocytes % 13 % Monocytes % 5 % Eosinophils % 3 % Basophils % 0 % Neutrophils # 7.4 (1.3-7.7) k/uL Lymphocytes # 1.3 (1.0-4.8) k/uL Monocytes # 0.5 (0-1.0) k/uL Eosinophils # 0.2 (0-0.7) k/uL Basophils # 0.0 (0-0.2) k/uL Hypochromasia Slight PT 10.4 (9.0-12.0) sec INR 1.0 (<1.2) APTT 23.7 (22.0-30.0) sec Sodium 138 (137-145) mmol/L Potassium 4.7 (3.5-5.1) mmol/L Chloride 109 H (98-107) mmol/L Carbon Dioxide 19 L (22-30) mmol/L Anion Gap 10 mmol/L BUN 73 H (7-17) mg/dL Creatinine 1.79 H (0.52-1.04) mg/dL Est GFR (CKD-EPI)AfAm 29 (>60 ml/min/1.73 sqM) Est GFR (CKD-EPI)NonAf 25 (>60 ml/min/1.73 sqM) Glucose 214 H (74-99) mg/dL Calcium 9.3 (8.4-10.2) mg/dL Total Bilirubin 1.3 (0.2-1.3) mg/dL AST 22 (14-36) U/L ALT 16 (9-52) U/L Alkaline Phosphatase 193 H (38-126) U/L Total Protein 6.0 L (6.3-8.2) g/dL Albumin 3.6 (3.5-5.0) g/dL Disposition Clinical Impression: GI bleed, History of colon cancer Disposition: ADMITTED IP TO THIS [facility] Referrals: Jesse Amor MD [Primary Care Provider] - 1-2 days Time of Disposition: 15:50
[2019-09-05 14:25] LABS: Basophils % (A) 0 %; Eosinophils # (A) 0.2 k/uL (0-0.7); Eosinophils % (A) 3 %; HCT 29.1 % (34.0-46.0); HGB 9.2 gm/dL (11.4-16.0); Hypochromasia Slight; Lymphocytes # (A) 1.3 k/uL (1.0-4.8); Lymphocytes % (A) 13 %; MCH 29.9 pg (25.0-35.0); MCHC 31.7 g/dL (31.0-37.0); MCV 94.6 fL (80.0-100.0); Mean Platelet Volume 9.1; Monocytes # (A) 0.5 k/uL (0-1.0); Monocytes % (A) 5 %; Neutrophils # (A) 7.4 k/uL (1.3-7.7); Neutrophils % (A) 77 %; Platelet Count 240 k/uL (150-450); RBC 3.07 m/uL (3.80-5.40); RDW 15.9 % (11.5-15.5); WBC 9.6 k/uL (3.8-10.6)
[2019-09-05 14:34] LABS: Albumin 3.6 g/dL (3.5-5.0); Calcium 9.3 mg/dL (8.4-10.2); Potassium 4.7 mmol/L (3.5-5.1); Total Bilirubin 1.3 mg/dL (0.2-1.3)
[2019-09-05 14:46] LABS: Partial Thromboplastin Time 23.7 sec (22.0-30.0); Prothrombin Time 10.4 sec (9.0-12.0)
[2019-09-05] MEDS ORDERED: SODIUM CHLORIDE 0.9% 1,000 ML IV ONE (15:51)
[2019-09-05] MEDS ORDERED: MECLIZINE 12.5 MG TAB PO PRN (20:05)
[2019-09-05 20:39] LABS: Glucose,Whole Blood 132 mg/dL (75-99)
[2019-09-05] MEDS: ALLOPURINOL 100 MG TAB PO SCH (21:50)
[2019-09-05] MEDS: POTASSIUM CHLORIDE ER 10 MEQ TAB.ER.PRT PO SCH (21:50)
[2019-09-05] MEDS: SPIRONOLACTONE 25 MG TAB PO SCH (21:51)
[2019-09-05] MEDS: SODIUM BICARBONATE TAB 650 MG TAB PO SCH (21:51)
[2019-09-05] MEDS: INSULIN ASPART (NovoLOG) 100 UNIT/ML VIAL SQ SCH (21:51)
[2019-09-05] MEDS: CARVEDILOL 3.125 MG TAB PO SCH (21:53)
--- NOTE | 2019-09-05 22:27 | P.HPIM ---
History of Present Illness H&P Date: 09/05/19 Chief Complaint: Lower GI bleed History of presenting complaint: This is a very pleasant 89-year-old patient who follows with visiting physicians Dr. Amor. Chronic stable medical conditions include congestive heart failure with EF of 50%, aortic stenosis, mitral regurgitation, mitral stenosis, tricuspid regurgitation, secondary probably hypertension, diabetes, hypertens ion, osteoarthritis, hypothyroid, blind left eye, coronary artery disease, [place] filter.. Patient does use a walker. Patient did have a computed tomography scan of the abdomen on August 30 and did show mass along the lateral wall of the ascending colon and also adjacent soft tissue omental mass and is also another additional mass present in intra-abdominally. Suggestive of metastatic disease. Patient yesterday had some bleeding per the right rectum. And decided to come in. Patient's been having lower abdominal discomfort. She was admitted to the ER. Patient normally does use a walker. Lives alone. Review of systems: GEN.: Tired EYES: None HEENT: None NECK: None RESPIRATORY: None CARDIOVASCULAR: None GASTROINTESTINAL: As above GENITOURINARY: None MUSCULOSKELETAL: Joint pains LYMPHATICS: None HEMATOLOGICAL: None PSYCHIATRY: None NEUROLOGICAL: Uses a walker Social history: Patient is a . Lives alone. Smoked 1-2 packs a day for close to 22 years stopped in 2001. Doesn't drink alcohol. Does use a walker Physical examination: VITAL SIGNS: 98.4, 85, 18, 133/100, 96% room air GENERAL: BMI 30.2, laying in bed not in distress. EYES: Pupils equal. Conjunctiva normal. HEENT: External appearance of nose and ears normal, oral cavity grossly normal. NECK: JVD not raised; masses not palpable. HEART: First and second heart sounds are normal; no edema. LUNGS: Respiratory rate normal; clear to auscultation. ABDOMEN: Soft, mass palpable on the right side, with some tenderness,, liver spleen not palpable, no masses palpable. PSYCH: Alert and oriented x3; mood and affect normal. NEUROLOGICAL: Cranial nerves grossly intact; no facial asymmetry, power and sensation grossly intact. LYMPHATICS: No lymph nodes palpable in the axilla and neck MUSCULOSKELETAL: Evidence of OA especially in the hands and knees INVESTIGATIONS, reviewed in the clinical context: White count 9.6 hemoglobin 9.2 platelets 240 progression 4.7 BUN 73 creatinine 1.79 Computed tomography scan of the abdomen-results noted as above Assessment: -Acute lower GI bleed most likely from malignancy. Note that is fresh blood which could be a diverticular bleed. -Intra-abdominal malignancy with metastatic appearance, does not have a diagnosis at present. 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 She may consider radiation treatment if it is helpful. I did speak to the medical oncology and the surgical period. Depending on what the oncologist opines will take it from there. Also it without a tissue diagnosis may be difficult to define what may be beneficial. The home medications resumed. Care was discussed with the patient. Patient will be provided clear liquid diet. Prognosis guarded. Past Medical History Past Medical History: Atrial Fibrillation, Coronary Artery Disease (CAD), Cancer, Heart Failure, Diabetes Mellitus, GI Bleed, Hypertension, Osteoarthritis (OA), Pneumonia, Pulmonary Embolus (PE), Sleep Apnea/CPAP/BIPAP, Thyroid Disorder Additional Past Medical History / Comment(s): gout, chronic pain in back hip and leg, diverticulitis, LT EYE BLIND,GLAUCOMA, MAC DEGENERATION RT EYE, MURMUR, DIVERTICULAR DX.OVARIAN CYSTS,SKIN CA,ANEMIA, TRACHEBRONCHITIS WITH REACTIVE BRONCHOSPASM.used to use cpap machine . Increased shortness of breath with activity and at rest. ARACELI CARPAL TUNNEL. abd cncer History of Any Multi-Drug Resistant Organisms: None Reported Past Surgical History: Appendectomy, Bowel Resection, Breast Surgery, Cardiac Valve Replacement, Cholecystectomy, Coronary Bypass/CABG, Heart Catheterization, Hysterectomy, Orthopedic Surgery, Pacemaker, Tonsillectomy Additional Past Surgical History / Comment(s): pacemaker, AORTIC VALVE REPLACEMENT(TISSUE) AND 1 VESSEL BYPASS, CYST REMOVED FROM HAND/HEAD,BOWEL RESECTION D/T DIVERTICULITIS.KRISTYN FILTER, COLONOCOSPY/POLYPECTOMY/EGD, PAS T LT EYE SX-DAMAGED THE OPTIC NERVE-BLIND LT EYE.lt knee arthrosopy, skin cancer removed from hand/head/back Past Anesthesia/Blood Transfusion Reactions: No Reported Reaction Type of Cardiac Device: Permanent Pacemaker Device Placement Date:: 2010 Past Psychological History: Depression Additional Psychological History / Comment(s): history of depression, denies now Smoking Status: Former smoker Past Alcohol Use History: None Reported Additional Past Alcohol Use History / Comment(s): STARTED SMOKING 1979 1-2 ppd, quit 2001, no alcohol now Past Drug Use History: None Reported - Past Family History Brother(s) History Unknown: Yes Father Family Medical History: Cancer Additional Family Medical History / Comment(s): ALCOHOLIC-- 1969 Mother Family Medical History: Cancer, Coronary Artery Disease (CAD), Dementia, Diabe lefty Mellitus Additional Family Medical History / Comment(s): 1984 Medications and Allergies Home Medications Medication Instructions Recorded Confirmed Type Carvedilol [Coreg] 3.125 mg PO BID 03/25/14 09/05/19 History Allopurinol 100 mg PO BID 03/07/15 09/05/19 History Levothyroxine Sodium [Synthroid] 75 mcg PO DAILY 11/03/17 09/05/19 History Insulin Lispro [humaLOG Kwikpen] 5 unit SQ AC-BID 12/29/17 09/05/19 History Furosemide [Lasix] 80 mg PO BID 05/21/19 09/05/19 History Insulin Detemir (Levemir) [Levemir] 20 unit SQ AC-BRKFST 05/21/19 09/05/19 History Potassium Chloride ER [K-Dur 10] 10 meq PO BID 05/21/19 09/05/19 History Spironolactone [Aldactone] 25 mg PO BID 05/21/19 09/05/19 History Meclizine HCl 12.5 mg PO TID PRN 09/05/19 09/05/19 History Naproxen Sodium [Aleve] 440 mg PO Q12HR PRN 09/05/19 09/05/19 History Sodium Bicarbonate Tab 650 mg PO BID 09/05/19 09/05/19 History Allergies Allergy/AdvReac Type Severity Reaction Status Date / Time aspirin Allergy Unknown Verified 09/05/19 16:01 bee pollen [Bee Pollen] Allergy Anaphylaxis Verified 09/05/19 16:01 celecoxib [From Celebrex] Allergy Unknown Verified 09/05/19 16:01 blood thinners AdvReac Severe see comment Uncoded 09/05/19 13:51 URIC ACIDS AdvReac GOUT Uncoded 09/05/19 13:51 Physical Exam Vitals: Vital Signs Temp Pulse Pulse Resp BP BP Pulse Ox 09/05/19 21:21 98.1 F 87 18 114/65 99 09/05/19 17:51 97.6 F 81 17 120/68 100 09/05/19 17:45 98.4 F 81 18 121/61 100 09/05/19 16:40 81 18 121/61 100 09/05/19 15:15 73 18 133/101 98 09/05/19 13:43 98.4 F 85 18 133/100 96 Intake and Output 09/05/19 09/05/19 09/05/19 06:59 14:59 22:59 Other: Weight 79.832 kg 79.832 kg Results CBC & Chem 7: 09/05/19 14:13 09/05/19 14:13 Labs: Abnormal Lab Results - Last 24 Hours (Table) 09/05/19 09/05/19 09/05/19 Range/Units 14:13 14:13 20:38 RBC 3.07 L (3.80-5.40) m/uL Hgb 9.2 L (11.4-16.0) gm/dL Hct 29.1 L (34.0-46.0) % RDW 15.9 H (11.5-15.5) % Chloride 109 H (98-107) mmol/L Carbon Dioxide 19 L (22-30) mmol/L BUN 73 H (7-17) mg/dL Creatinine 1.79 H (0.52-1.04) mg/dL Glucose 214 H (74-99) mg/dL POC Glucose (mg/dL) 132 H (75-99) mg/dL Alkaline Phosphatase 193 H (38-126) U/L Total Protein 6.0 L (6.3-8.2) g/dL Thrombosis Risk Factor Assmnt - Choose All That Apply Any of the Below Risk Factors Present?: Yes Each Factor Represents 1 point: Heart failure (<1month), Obesity (BMI >25), Swollen legs (current), Varicose veins Other Risk Factors: Yes Each Risk Factor Represents 2 Points: Malignancy Each Risk Factor Represents 3 Points: Age 75 years or older, History of DVT/PE Thrombosis Risk Factor Assessment Total Risk Factor Score: 12 Thrombosis Risk Factor Assessment Level: High Risk
[2019-09-05] MEDS: LACTATED RINGERS 1,000 ML IV SCH (23:13)
[2019-09-05] MEDS: MELATONIN 1 MG TAB PO PRN (23:46)
[2019-09-06] MEDS: LEVOTHYROXINE 75 MCG TAB PO SCH (05:25)
[2019-09-06] MEDS: ACETAMINOPHEN TAB 325 MG TAB PO PRN ×2 (06:26→18:36)
[2019-09-06 07:05] LABS: Glucose,Whole Blood 156 mg/dL (75-99)
[2019-09-06 08:42] LABS: Basophils % (A) 0 %; Eosinophils # (A) 0.3 k/uL (0-0.7); Eosinophils % (A) 4 %; HGB 8.1 gm/dL (11.4-16.0); Hypochromasia Slight; Lymphocytes # (A) 1.2 k/uL (1.0-4.8); Lymphocytes % (A) 14 %; MCH 30.7 pg (25.0-35.0); MCHC 32.5 g/dL (31.0-37.0); MCV 94.3 fL (80.0-100.0); Mean Platelet Volume 8.2; Monocytes # (A) 0.5 k/uL (0-1.0); Monocytes % (A) 6 %; Neutrophils # (A) 6.2 k/uL (1.3-7.7); Neutrophils % (A) 74 %; Platelet Count 214 k/uL (150-450); Poikilocytosis Slight; RBC 2.65 m/uL (3.80-5.40); RDW 15.6 % (11.5-15.5); WBC 8.4 k/uL (3.8-10.6)
[2019-09-06] MEDS: INSULIN DETEMIR (LEVEMIR) 100 UNIT/ML SYR SQ SCH (09:35)
[2019-09-06] MEDS: POTASSIUM CHLORIDE ER 10 MEQ TAB.ER.PRT PO SCH ×2 (09:35→21:39)
[2019-09-06] MEDS: SPIRONOLACTONE 25 MG TAB PO SCH ×2 (09:36→21:41)
[2019-09-06] MEDS: INSULIN ASPART (NovoLOG) 100 UNIT/ML VIAL SQ SCH ×6 (09:36→21:39)
[2019-09-06] MEDS: ALLOPURINOL 100 MG TAB PO SCH ×2 (09:36→21:39)
[2019-09-06] MEDS: SODIUM BICARBONATE TAB 650 MG TAB PO SCH ×2 (09:36→21:39)
[2019-09-06] MEDS: FUROSEMIDE 80 MG TAB PO SCH ×2 (09:36→17:19)
[2019-09-06] MEDS: CARVEDILOL 3.125 MG TAB PO SCH ×2 (09:36→17:19)
--- NOTE | 2019-09-06 11:06 | P.CONS ---
History of Present Illness - Reason for Consult Consult date: 09/06/19 abd mass Requesting physician: Rob Sam - Chief Complaint Stool suggestive of GI bleed - History of Present Illness Mrs. Callaway is a very pleasant 89-year-old female patient who states that she had blood in her stool which is what prompted her to come to the hospital. She had imaging on admission showing a large right lower quadrant mass, 2 adjacent peritoneal deposits, 2 cm lesion in the left lobe of the liver, mild ascites, another questionable peritoneal deposit, labs showed anemia with a hemoglobin of 8.1, BUN 73, creatinine 1.79. Patient states intentional 60 pound weight loss over the past 2-3 months by only eating 2 meals a day, she noticed increased fatigue, poor energy levels, she fell up the stairs on gi, denied any syncope, states she has felt like this before when she was anemic. She has taken iron supplements in the past but, this was discontinued. History of colon polyps, she's had 18 inches of her colon removed in 2 separate surgeries, had multiple colonoscopies, believes the last one was in [place] about 5 years ago. Patient denies nausea or vomiting, sweats, abdominal distention or bloating, she has noticed abdominal cramping, across lower part of the abdomen when having bowel movements, this resolves after the bowel movement, she denies any changes in the caliber of stool. Review of Systems 14 point review of systems is negative except as stated in HPI Past Medical History Past Medical History: Atrial Fibrillation, Coronary Artery Disease (CAD), Cancer, Heart Failure, Diabetes Mellitus, GI Bleed, Hypertension, Osteoarthritis (OA), Pneumonia, Pulmonary Embolus (PE), Sleep Apnea/CPAP/BIPAP, Thyroid Disorder Additional Past Medical History / Comment(s): gout, chronic pain in back hip and leg, diverticulitis, LT EYE BLIND,GLAUCOMA, MAC DEGENERATION RT EYE, MURMUR, DIVERTICULAR DX.OVARIAN CYSTS,SKIN CA,ANEMIA, TRACHEBRONCHITIS WITH REACTIVE BRONCHOSPASM.used to use cpap machine . Increased shortness of breath with activity and at rest. ARACELI CARPAL TUNNEL. abd cncer History of Any Multi-Drug Resistant Organisms: None Reported Past Surgical History: Appendectomy, Bowel Resection, Breast Surgery, Cardiac Valve Replacement, Cholecystectomy, Coronary Bypass/CABG, Heart Catheterization, Hysterectomy, Orthopedic Surgery, Pacemaker, Tonsillectomy Additional Past Surgical History / Comment(s): pacemaker, AORTIC VALVE REPLAC EMENT(TISSUE) AND 1 VESSEL BYPASS, CYST REMOVED FROM HAND/HEAD,BOWEL RESECTION D/T DIVERTICULITIS.KRISTYN FILTER, COLONOCOSPY/POLYPECTOMY/EGD, PAST LT EYE SX-DAMAGED THE OPTIC NERVE-BLIND LT EYE.lt knee arthrosopy, skin cancer removed from hand/head/back Past Anesthesia/Blood Transfusion Reactions: No Reported Reaction Type of Cardiac Device: Permanent Pacemaker Device Placement Date:: 2010 Past Psychological History: Depression Additional Psychological History / Comment(s): history of depression, denies now Smoking Status: Former smoker Past Alcohol Use History: None Reported Additional Past Alcohol Use History / Comment(s): STARTED SMOKING 1979 1-2 , quit 2001, no alcohol now Past Drug Use History: None Reported - Past Family History Brother(s) History Unknown: Yes Father Family Medical History: Cancer Additional Family Medical History / Comment(s): ALCOHOLIC-- 1969 Mother Family Medical History: Cancer, Coronary Artery Disease (CAD), Dementia, Diabetes Mellitus Additional Family Medical History / Comment(s): 1984 Medications and Allergies Home Medications Medication Instructions Recorded Confirmed Type Carvedilol [Coreg] 3.125 mg PO BID 03/25/14 09/05/19 History Allopurinol 100 mg PO BID 03/07/15 09/05/19 History Levothyroxine Sodium [Synthroid] 75 mcg PO DAILY 11/03/17 09/05/19 History Insulin Lispro [humaLOG Kwikpen] 5 unit SQ AC-BID 12/29/17 09/05/19 History Furosemide [Lasix] 80 mg PO BID 05/21/19 09/05/19 History Insulin Detemir (Levemir) [Levemir] 20 unit SQ AC-BRKFST 05/21/19 09/05/19 Hi story Potassium Chloride ER [K-Dur 10] 10 meq PO BID 05/21/19 09/05/19 History Spironolactone [Aldactone] 25 mg PO BID 05/21/19 09/05/19 History Meclizine HCl 12.5 mg PO TID PRN 09/05/19 09/05/19 History Naproxen Sodium [Aleve] 440 mg PO Q12HR PRN 09/05/19 09/05/19 History Sodium Bicarbonate Tab 650 mg PO BID 09/05/19 09/05/19 History Allergies Allergy/AdvReac Type Severity Reaction Status Date / Time aspirin Allergy Unknown Verified 09/05/19 16:01 bee pollen [Bee Pollen] Allergy Anaphylaxis Verified 09/05/19 16:01 celecoxib [From Celebrex] Allergy Unknown Verified 09/05/19 16:01 blood thinners AdvReac Severe see comment Uncoded 09/05/19 13:51 URIC ACIDS AdvReac GOUT Uncoded 09/05/19 13:51 Physical Exam Vitals: Vital Signs Temp Pulse Pulse Resp BP BP Pulse Ox 09/06/19 05:00 98.1 F 77 18 116/53 96 09/06/19 00:00 87 18 09/05/19 21:21 98.1 F 87 18 114/65 99 09/05/19 17:51 97.6 F 81 17 120/68 100 09/05/19 17:45 98.4 F 81 18 121/61 100 09/05/19 16:40 81 18 121/61 100 09/05/19 15:15 73 18 133/101 98 09/05/19 13:43 98.4 F 85 18 133/100 96 Intake and Output 09/05/19 09/06/19 09/06/19 22:59 06:59 14:59 Intake Total 680 710 Output Total 450 400 Balance 230 310 Intake: Intake, IV Titration 530 120 Amount Lactated Ringers 1,000 ml 80 120 @ 20 mls/hr IV .Q24H [facility] Rx#:[id number] Sodium Chloride 0.9% 1, 450 000 ml @ 75 mls/hr IV . [id number] [facility] Rx#:[id number] Oral 150 590 Output: Urine 450 400 Other: # Voids 2 2 Weight 79.832 kg - Constitutional General appearance: cooperative, no acute distress, obese - EENT Eyes: anicteric sclerae ENT: hearing grossly normal, normal oropharynx - Neck Neck: no lymphadenopathy - Respiratory Respiratory: bilateral: CTA - Cardiovascular Rhythm: regular Heart sounds: normal: S1, S2 leg Peripheral Edema: bilateral: Trace (Left lower extremity bruising from recent fall) - Gastrointestinal General gastrointestinal: no absent bowel sounds, no decreased bowel sounds, no distended, no hepatomegaly, no hyperactive bowel sounds, normal bowel sounds, no organomegaly, no rigid, no scaphoid, soft, no splenomegaly, no tenderness, no umbilical hernia, no ventral hernia - Integumentary Integumentary: normal - Neurologic Patient is legally blind Neurologic: CNII-XII intact - Musculoskeletal Musculoskeletal: strength equal bilaterally - Psychiatric Psychiatric: A&O x's 3, appropriate affect, intact judgment & insight Results CBC & Chem 7: 09/06/19 07:44 09/05/19 14:13 Labs: Abnormal Lab Results - Last 24 Hours (Table) 09/05/19 09/05/19 09/05/19 Range/Units 14:13 14:13 20:38 RBC 3.07 L (3.80-5.40) m/uL Hgb 9.2 L (11.4-16.0) gm/dL Hct 29.1 L (34.0-46.0) % RDW 15.9 H (11.5-15.5) % Chloride 109 H (98-107) mmol/L Carbon Dioxide 19 L (22-30) mmol/L BUN 73 H (7-17) mg/dL Creatinine 1.79 H (0.52-1.04) mg/dL Glucose 214 H (74-99) mg/dL POC Glucose (mg/dL) 132 H (75-99) mg/dL Alkaline Phosphatase 193 H (38-126) U/L Total Protein 6.0 L (6.3-8.2) g/dL 09/06/19 09/06/19 Range/Units 06:59 07:44 RBC 2.65 L (3.80-5.40) m/uL Hgb 8.1 L (11.4-16.0) gm/dL Hct 25.0 L (34.0-46.0) % RDW 15.6 H (11.5-15.5) % Chloride (98-107) mmol/L Carbon Dioxide (22-30) mmol/L BUN (7-17) mg/dL Creatinine (0.52-1.04) mg/dL Glucose (74-99) mg/dL POC Glucose (mg/dL) 156 H (75-99) mg/dL Alkaline Phosphatase (38-126) U/L Total Protein (6.3-8.2) g/dL CT scan - abdomen: report reviewed Assessment and Plan (1) GI bleed Narrative/Plan: Patient has had in the past. Last colonoscopy 5 years ago. Patient has history of polyps. Surgery consult and, anticipate colonoscopy. Hemoglobin not requiring transfusion at this time. Transfuse to keep hemoglobin 7 or higher. Patient also has a history of chronic renal insufficiency from chart review, which could be contributing to her anemia as well. Established care with a Plastic [employer]er may be reasonable Current Visit: Yes Status: Acute Priority: High Code(s): K92.2 - GASTROINTESTINAL HEMORRHAGE, UNSPECIFIED SNOMED Code(s): 74849742 (2) Anemia Narrative/Plan: Anemia workup ordered Current Visit: Yes Status: Chronic Priority: Medium Code(s): D64.9 - ANEMIA, UNSPECIFIED SNOMED Code(s): 788080817 (3) Abdominal mass Narrative/Plan: Case discussed with Attending. Surgery is consulted. Recommendation/plan is for colonoscopy-to rule out any potential impending obstruction. Hopefully able to obtain a biopsy through the same procedure. Patient wanted to know her options. At this time the only thing we are able to say is that she has a mass, we need to find out what this is so that we can provide her with treatment options. She verbalized understanding. Information was communicated to nursing soda can be shared with family to keep everybody on the same page. Current Visit: Yes Status: Acute Priority: High Code(s): R19.00 - INTRA- ABD AND PELVIC SWELLING, MASS AND LUMP, UNSP SITE SNOMED Code(s): 173283600 Plan: Doctor attests: I performed a history and physical examination of this patient, developed impression and plan of care. Discussed with dictator. I agree with dictators note, documented as a scribe.
[2019-09-06 11:27] LABS: Glucose,Whole Blood 276 mg/dL (75-99)
[2019-09-06 14:33] LABS: Glucose,Whole Blood 303 mg/dL (75-99)
[2019-09-06] MEDS ORDERED: PEG 3350-NA SULF,BICARB,CL/KCL 4,000 ML BOTTLE PO ONE (15:28)
[2019-09-06] MEDS: SODIUM FERRIC GLUCONAT-SUCROSE 125 MG in SODIUM CHLORIDE 0.9% 100 ML IVPB SCH (15:29)
[2019-09-06 16:14] LABS: Ferritin 38.9 ng/mL (10.0-291.0)
[2019-09-06 16:19] LABS: % Iron Saturation 5.06 (12.00-45.00)
[2019-09-06 17:17] LABS: Glucose,Whole Blood 134 mg/dL (75-99)
--- NOTE | 2019-09-06 19:32 | PN ---
PROGRESS NOTE DATE OF DICTATION: September 06, 2019. REASON FOR CONSULTATION: Rectal bleeding. HISTORY OF PRESENT ILLNESS: The patient is an 89-year-old pleasant white female who was admitted to hospital because of rectal bleeding for the last 4 days duration. She states that on Thursday, she started having bright red blood per rectum. She had about 3 episodes. On Thursday, she had another couple of episodes and hence came to the emergency room and subsequently admitted to the hospital for further evaluation. The patient had imaging studies on an outpatient basis for right lower quadrant abdominal pain and was noted to have right lower quadrant mass in addition to small peritoneal deposits and a 2 cm lesion in the left lobe of the liver. Dr. Parkinson was also consulted in regards to this issue. She states that she had lost about 60 pounds in the last 4 months duration, but she attributes all of this to voluntary weight loss. She has been having intermittent constipation. She denies any nausea, vomiting. No abdominal pain other than right lower quadrant discomfort. No fever, chills, night sweats. PAST MEDICAL HISTORY: Significant for atrial fibrillation, coronary artery disease, congestive heart failure, diabetes mellitus, hypertension, hyperlipidemia, history of pulmonary embolism in the past, sleep apnea, and hypothyroidism. PAST SURGICAL HISTORY: Breast surgery, valve replacement, cholecystectomy, CABG, appendectomy, colon surgery for questionable colon polyps, Brewster filter placement. Last colonoscopy 5 years ago in [place]. MEDICATIONS: At home include: Coreg, allopurinol, Synthroid, Lasix, Levemir, K-Dur, Aldactone, meclizine and Aleve, sodium bicarbonate. ALLERGIES: ALLERGIES TO ASPIRIN, CELEBREX AND POLLEN. SOCIAL HISTORY: No smoking. No alcohol use. FAMILY HISTORY: Father had some kind of cancer. Mother had dementia, diabetes mellitus. REVIEW OF SYSTEMS: CARDIOPULMONARY: She denies any chest pain, shortness of breath. GENITOURINARY: No dysuria or hematuria. MUSCULOSKELETAL unremarkable. SKIN unremarkable. Endocrine unremarkable. Psychiatric unremarkable. Neurology unremarkable. ENT/vision unremarkable. CONSTITUTIONAL: Weight loss of 60 pounds. No fever, chills, night sweats. PHYSICAL EXAMINATION: She appears comfortable. No apparent distress. VITAL SIGNS: Stable. Blood pressure is 117/65, pulse rate 75, temperature 98.1 degrees. HEENT examination unremarkable. Conjunctivae pink. Sclerae anicteric. Oral cavity no lesions. NECK: No JVD or lymph node enlargement. CHEST: Clear to auscultation. HEART: Regular rate and rhythm. ABDOMEN: Soft. There was fullness in the right lower quadrant area. Rest of the abdomen was benign. Bowel sounds are positive. EXTREMITIES: No pedal edema. SKIN: No rashes. NEUROLOGIC: Alert and oriented x3. No focal deficits. LABS: WBC 8.4, hemoglobin 8.1, platelets 214. Basic metabolic panel showed a BUN of 73, creatinine 1.79. CA-125 was 256. IMPRESSION: 1. Rectal bleeding for the last 3 days duration. Hemoglobin 8.1 g/dL. Last colonoscopy 5 years ago in [place] and according to the patient was normal. Prior to that, she had multiple colonoscopies and was diagnosed with colon polyps in the past and at one point had partial colon resection. 2. Right lower quadrant mass noted on recent CT scan of the abdomen and pelvis for which Dr. Parkinson has been consulted and Oncology following the patient also. 3. Anemia related to lower gastrointestinal bleed. RECOMMENDATIONS: 1. Monitor CBC closely. 2. Patient already scheduled for colonoscopy by Dr. Parkinson tomorrow and if it is negative, she plans on proceeding with biopsy of the right lower quadrant mass. 3. I agree with the above plan. We will follow with you closely. Thank you for this consultation. MMODL / IJN: [id number] /
[2019-09-06 19:59] LABS: Glucose,Whole Blood 93 mg/dL (75-99)
[2019-09-06 20:21] LABS: Glucose,Whole Blood 104 mg/dL (75-99)
[2019-09-06] MEDS: MELATONIN 1 MG TAB PO PRN (23:56)
[2019-09-06] MEDS: LACTATED RINGERS 1,000 ML IV SCH (23:58)
[2019-09-07] MEDS: ACETAMINOPHEN TAB 325 MG TAB PO PRN ×3 (06:19→23:09)
[2019-09-07] MEDS: LEVOTHYROXINE 75 MCG TAB PO SCH (06:19)
[2019-09-07 07:15] LABS: Glucose,Whole Blood 128 mg/dL (75-99)
--- NOTE | 2019-09-07 07:34 | P.GSCN ---
History of Present Illness Consult date: 09/06/19 History of present illness: CHIEF COMPLAINT: Hematochezia HISTORY OF PRESENT ILLNESS: The patient is an 89-year-old female who presents to the hospital with rectal bleeding last 3+ days. She reports having almost 5-6 month history of persistent right lower quadrant including right hip pain which had been dismissed up until a month to 2 months ago. Separately, she reports falling onto her right side last 2-3 days coinciding with start of her rectal bleeding. She had outpatient studies including CT of the abdomen and pelvis 1 week ago that demonstrated a colonic mass of the ascending colon. Separately she reports a history of colon polyps including 6 years ago she had a colonoscopy where partial polypectomy was performed with the intent of follow up in 6 months. She had moved from [place] to [place] and had been lost to follow-up in that same timeframe for over 6 years. She has a family history of colon cancer in her father. She reports multiple bloody bowel movements today. She reports persistent anemia including need for iron. As a result of rectal bleeding and hemoglobin on presentation of 9.[address] findings of abdominal mass, general surgery is consulted PAST MEDICAL HISTORY: See list. PAST SURGICAL HISTORY: See list. MEDICATIONS: See list. ALLERGIES: See list. SOCIAL HISTORY: See list. FAMILY HISTORY: See list. REVIEW OF ORGAN SYSTEMS: CONSTITUTIONAL: No fevers or chills. Has recent weight loss. EYES: Denies any trouble with vision. No glasses. HEENT: No difficulties with hearing. No nosebleeds. No difficulty swallowing. RESPIRATORY: Past pneumonia. Denies any troubles with breathing or dyspnea on exertion. Has sleep apnea CARDIOVASCULAR: Past chest pain, palpitations, or recent heart attacks. Has isc hemic cardiomyopathy. Has atrial fibrillation and history of congestive heart failure. GASTROINTESTINAL: Denies fatty food intolerance. Has change in bowel habits and gas bloat. GENITOURINARY: Denies any blood in urine or increased urinary frequency. NEUROLOGICAL: Denies any numbness or tingling along the distal extremities. No seizure disorders or headaches. MUSCULOSKELETAL: Has back pain, stiffness or joint arthritis. Has gout. SKIN: No current skin cancer. No rash. PSYCHIATRIC: Denies current depression or suicidal thoughts. ENDOCRINE: Has thyroid disorders. Has blood sugar glucose intolerance. HEME/LYMPHATIC: Denies any lumps and bumps around the neck. Past deep venous thrombosis. Has persistent anemia. ALLERGY/IMMUNOLOGY: No immunoglobulin therapy. No immune deficiencies. BREAST: Denies current breast lumps, pain or nipple discharge. PHYSICAL EXAM: VITALS: Reviewed CONSTITUTIONAL: Well developed and in no acute distress. EYES: Conjuctivae without sclera icterus. Pupils are equally round and reactive to light. Extraocular movements grossly intact. HEAD, EARS, NOSE, THROAT: Moist buccal mucosa. Head is atraumatic, normocephalic. Hears conversational speech. No nasal drainage. NECK: Supple. No JV distention. No thyroidomegaly. RESPIRATORY: Non-labored respirations and equal bilateral excursions. No gross wheezes. CARDIOVASCULAR: Irregular rate and irregular rhythm. Extremities without moderate edema. Palpable 2+ radial pulses. ABDOMEN: Soft. Non-tender. Nondistended. LYMPH: No neck lymphadenopathy. MUSCULOSKELETAL: Nail and fingers with good capillary refill. SKIN: Warm and well perfused with good skin turgor. NEUROLOGIC: Cranial nerves I through XII grossly intact. Sensation upper and extremities intact. No focal or lateralizing signs. PSYCH: Appropriate affect. Alert and oriented to person, place and time. Displays appropriate insight. CLINCAL LABS: Reviewed. Initial hemoglobin 9.2 RADIOLOGY: Report reviewed with abdominal ascites identified including lymphadenopathy IMAGING: Independently reviewed demonstrating large over 5 cm mass ascending colon with questionable erosion along to the abdominal wall right lower abdomen ASSESSMENT: 1. Abnormal computed tomography scan with ascending colon mass 2. Rectal bleeding PLAN: 1. Presentation surgical intervention required for rectal bleeding and invading mass. 2. For surgical preparation, colonoscopy to exclude satellite lesions and to determine partial colectomy versus total abdominal colectomy 3. Patient reports she still undecided regarding chemotherapy and port placement. 4. Overall, patient high risk with pre-existing anemia, congestive heart failure, previous history of DVTs Thank you for this kind consultation. Past Medical History Past Medical History: Atrial Fibrillation, Coronary Artery Disease (CAD), Cancer, Heart Failure, Diabetes Mellitus, GI Bleed, Hypertension, Osteoarthritis (OA), Pneumonia, Pulmonary Embolus (PE), Sleep Apnea/CPAP/BIPAP, Thyroid Disorder Additional Past Medical History / Comment(s): gout, chronic pain in back hip and leg, diverticulitis, LT EYE BLIND,GLAUCOMA, MAC DEGENERATION RT EYE, MURMUR, DIVERTICULAR DX.OVARIAN CYSTS,SKIN CA,ANEMIA, TRACHEBRONCHITIS WITH REACTIVE BRONCHOSPASM.used to use cpap machine . Increased shortness of breath with activity and at rest. ARACELI CARPAL TUNNEL. abd cncer History of Any Multi-Drug Resistant Organisms: None Reported Past Surgical History: Appendectomy, Bowel Resection, Breast Surgery, Cardiac Valve Replacement, Cholecystectomy, Coronary Bypass/CABG, Heart Catheterization, Hysterectomy, Orthopedic Surgery, Pacemaker, Tonsillectomy Additional Past Surgical History / Comment(s): pacemaker, AORTIC VALVE REPLACEMENT(TISSUE) AND 1 VESSEL BYPASS, CYST REMOVED FROM HAND/HEAD,BOWEL RESECTION D/T DIVERTICULITIS.KRISTYN FILTER, COLONOCOSPY/POLYPECTOMY/EGD, PAST LT EYE SX-DAMAGED THE OPTIC NERVE-BLIND LT EYE.lt knee arthrosopy, skin cancer removed from hand/head/back Past Anesthesia/Blood Transfusion Reactions: No Reported Reaction Type of Cardiac Device: Permanent Pacemaker Device Placement Date:: 2010 Past Psychological History: Depression Additional Psychological History / Comment(s): history of depression, denies now Smoking Status: Former smoker Past Alcohol Use History: None Reported Additional Past Alcohol Use History / Comment(s): STARTED SMOKING 1979 1-2 ppd, quit 2001, no alcohol now Past Drug Use History: None Reported - Past Family History Brother(s) History Unknown: Yes Father Family Medical History: Cancer Additional Family Medical History / Comment(s): ALCOHOLIC-- 1969 Mother Family Medical History: Cancer, Coronary Artery Disease (CAD), Dementia, Diabetes Mellitus Additional Family Medical History / Comment(s): 1984 Medications and Allergies Home Medications Medication Instructions Recorded Confirmed Type Carvedilol [Coreg] 3.125 mg PO BID 03/25/14 09/05/19 History Allopurinol 100 mg PO BID 03/07/15 09/05/19 History Levothyroxine Sodium [Synthroid] 75 mcg PO DAILY 11/03/17 09/05/19 History Insulin Lispro [humaLOG Kwikpen] 5 unit SQ AC-BID 12/29/17 09/05/19 History Furosemide [Lasix] 80 mg PO BID 05/21/19 09/05/19 History Insulin Detemir (Levemir) [Levemir] 20 unit SQ AC-BRKFST 05/21/19 09/05/19 History Potassium Chloride ER [K-Dur 10] 10 meq PO BID 05/21/19 09/05/19 History Spironolactone [Aldactone] 25 mg PO BID 05/21/19 09/05/19 History Meclizine HCl 12.5 mg PO TID PRN 09/05/19 09/05/19 History Naproxen Sodium [Aleve] 440 mg PO Q12HR PRN 09/05/19 09/05/19 History Sodium Bicarbonate Tab 650 mg PO BID 09/05/19 09/05/19 History Allergies Allergy/AdvReac Type Severity Reaction Status Date / Time aspirin Allergy Unknown Verified 09/05/19 16:01 bee pollen [Bee Pollen] Allergy Anaphylaxis Verified 09/05/19 16:01 celecoxib [From Celebrex] Allergy Unknown Verified 09/05/19 16:01 blood thinners AdvReac Severe see comment Uncoded 09/05/19 13:51 URIC ACIDS AdvReac GOUT Uncoded 09/05/19 13:51 Surgical - Exam Vital Signs Temp Pulse Resp BP Pulse Ox 98.4 F 85 18 133/100 96 09/05/19 13:43 09/05/19 13:43 09/05/19 13:43 09/05/19 13:43 09/05/19 13:43 Results - Labs 09/06/19 07:44 09/05/19 14:13 Abnormal Lab Results - Last 24 Hours (Table) 09/06/19 09/06/19 09/06/19 Range/Units 07:44 07:44 07:44 RBC 2.65 L (3.80-5.40) m/uL Hgb 8.1 L (11.4-16.0) gm/dL Hct 25.0 L (34.0-46.0) % RDW 15.6 H (11.5-15.5) % POC Glucose (mg/dL) (75-99) mg/dL Iron 17 L (50-170) ug/dL % Saturation 5.06 L (12.00-45.00) Carcinoembryonic Ag 299.2 H (0.0-4.9) ng/mL CA 125 Antigen 256.0 H (0.0-30.1) U/mL Vitamin B12 3270.0 H (200.0-944.0) pg/mL 09/06/19 09/06/19 09/06/19 Range/Units 11:25 14:20 17:13 RBC (3.80-5.40) m/uL Hgb (11.4-16.0) gm/dL Hct (34.0-46.0) % RDW (11.5-15.5) % POC Glucose (mg/dL) 276 H 303 H 134 H (75-99) mg/dL Iron (50-170) ug/dL % Saturation (12.00-45.00) Carcinoembryonic Ag (0.0-4.9) ng/mL CA 125 Antigen (0.0-30.1) U/mL Vitamin B12 (200.0-944.0) pg/mL 09/06/19 09/07/19 Range/Units 20:20 07:05 RBC (3.80-5.40) m/uL Hgb (11.4-16.0) gm/dL Hct (34.0-46.0) % RDW (11.5-15.5) % POC Glucose (mg/dL) 104 H 128 H (75-99) mg/dL Iron (50-170) ug/dL % Saturation (12.00-45.00) Carcinoembryonic Ag (0.0-4.9) ng/mL CA 125 Antigen (0.0-30.1) U/mL Vitamin B12 (200.0-944.0) pg/mL
[2019-09-07] MEDS: INSULIN ASPART (NovoLOG) 100 UNIT/ML VIAL SQ SCH ×4 (08:05→21:12)
[2019-09-07] MEDS: IOPAMIDOL CONTRAST (ORAL USE) VIAL PO PRN ×2 (08:30→09:29)
[2019-09-07] MEDS: CARVEDILOL 3.125 MG TAB PO SCH ×2 (08:30→19:40)
[2019-09-07 09:06] LABS: Basophils % (A) 1 %; Eosinophils # (A) 0.4 k/uL (0-0.7); Eosinophils % (A) 5 %; HCT 25.6 % (34.0-46.0); HGB 8.2 gm/dL (11.4-16.0); Hypochromasia Slight; Lymphocytes # (A) 1.4 k/uL (1.0-4.8); Lymphocytes % (A) 17 %; MCH 29.9 pg (25.0-35.0); MCV 93.4 fL (80.0-100.0); Mean Platelet Volume 8.9; Monocytes # (A) 0.6 k/uL (0-1.0); Monocytes % (A) 8 %; Neutrophils # (A) 5.7 k/uL (1.3-7.7); Neutrophils % (A) 68 %; Platelet Count 232 k/uL (150-450); Poikilocytosis Slight; RBC 2.75 m/uL (3.80-5.40); RDW 15.7 % (11.5-15.5); WBC 8.4 k/uL (3.8-10.6)
[2019-09-07 09:16] LABS: Albumin 3.2 g/dL (3.5-5.0); Calcium 9.2 mg/dL (8.4-10.2); Total Bilirubin 1.4 mg/dL (0.2-1.3); Total Protein 5.7 g/dL (6.3-8.2)
[2019-09-07] MEDS: SODIUM FERRIC GLUCONAT-SUCROSE 125 MG in SODIUM CHLORIDE 0.9% 100 ML IVPB SCH (09:31)
[2019-09-07 11:13] LABS: Glucose,Whole Blood 148 mg/dL (75-99)
--- NOTE | 2019-09-07 11:33 | CT ---
EXAMINATION TYPE: CT abdomen pelvis wo con DATE OF EXAM: 09/07/2019 COMPARISON: 08/30/2019 HISTORY: Follow up per patient. CT DLP: 606.1 mGycm Examination of the solid and hollow viscera is limited given the lack of contrast. FINDINGS: LUNG BASES: No evidence for nodule. No evidence for infiltrate. Small pleural effusions are now noted bilaterally. The heart is enlarged. LIVER/GB: Mild nodularity suspected of the peritoneal surface of the liver. Suspect small peritoneal deposits. Small amount of ascites noted about the liver edge. The gallbladder is unremarkable. No spa ce-occupying hepatic lesion. PANCREAS: No pancreatic mass identified. No inflammatory process seen. SPLEEN: No evidence for splenomegaly. No intrasplenic lesions seen. ADRENALS: No adrenal nodules identified. No evidence for thickening. KIDNEYS: No evidence for renal mass. No nephrolithiasis. No hydronephrosis. BOWEL: Large exophytic mass of the medial wall ascending colon measures approximately 8.5 x 6.9 x 6.7 cm versus 8.1 x 6.4 x 6.1 cm. Wall thickening of the adjacent colon. Peritoneal nodularity persists compatible with peritoneal deposits measuring 4.7 x 2.4 cm along the right lateral undersurface of th e abdominal wall which has increased in size relative to the prior study. Prior measurement of 4.6 x 2.0 cm. Additional stable nodule posterior to the left lateral anterior abdominal wall. Lymph nodes: No evidence for adenopathy greater than 1 cm. Abdominal aorta: Atheromatous changes seen. No evidence for aneurysm. Genital organs: Soft tissue mass within the pelvis to the right of midline in the region of the right adnexa measures 4.1 x 4.8 cm. This could reflect ovarian neoplasm versus a drop met. There are liu es of prior hysterectomy. Other: No significant abnormality. IMPRESSION: 1. 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 Additional consideration is that of an exophytic colonic mass with peritoneal metastases as well as drop metastases in the pelvis. Correlate clinically.
[2019-09-07] MEDS ORDERED: IV FLUID CONTINUATION 1,000 ML IV ONE (12:28)
[2019-09-07] MEDS ORDERED: PROPOFOL 10 MG/ML 20 ML VIAL IV ONE (12:30)
[2019-09-07] MEDS ORDERED: SODIUM CHLORIDE 0.9% 1,000 ML IV ONE (12:56)
--- NOTE | 2019-09-07 13:02 | P.PCN ---
Date of Procedure: 09/07/19 Description of Procedure: PREOPERATIVE DIAGNOSIS: Hematochezia Colon mass per computed tomography scan Prior history of colon resection POSTOPERATIVE DIAGNOSIS: Hematochezia Colon mass per computed tomography scan, over 9 cm ascending colon Prior history of colon resection Arteriovenous malformation, hepatic flexure OPERATION: Colonoscopy to the ileocolic anastomosis Colonoscopy with snare polypectomy ascending colon mass Colonoscopy with injection of Leti ink 3 mL ascending colon mass SURGEON: Kassie Parkinson MD. ANESTHESIA: MAC. INDICATIONS: The patient is a 89-year-old female who presents with rectal bleeding. She had a computed tomography scan demonstrate a large colon mass. Colonoscopy was referred for surgical planning including tissue biopsy. Benefits and risks were described and informed consent was obtained. DESCRIPTION OF PROCEDURE: The patient had undergone a GoLYTELY prep. She had been brought into the operating room and laid in the left lateral decubitus position. After adequate intravenous sedation, the rectum was examined with 2% lidocaine jelly. External hemorrhoids were encountered. The rectal tone was within normal limits. No lesions were palpated in the rectal vault. An Olympus colonoscope was advanced to the ileocolic anastomosis. The prep was excellent. Residual blood was found within the rectum however distal to the mass, arteriovenous malformation with minimal bleed was identified. Snare polypectomy was obtained of the ascending colon of a circumferential flat polypoid tumor. No active bleeding was found of the tumor itself. Ejection in the Inc. was performed at the site of bleeding just distal to the AV malformation. No moderate scattered diverticulosis was encountered. No evidence of focal colitis was found. Retroflexion of the scope demonstrated grade 1 internal hemorrhoids without active bleeding or inflammation. The colon was desufflated. The patient had tolerated the procedure well. Withdrawal time was over 6 minutes. FINDINGS: Aronchick preparation quality scale 2 (1-5) Internal hemorrhoids, grade 1 External prolapsed hemorrhoids, grade 1 Arteriovenous malformation just distal to ascending colon mass with small blood active bleeding Large over 9 cm flat polypoid mass effect in the ascending colon 3 cm distal to the left colic anastomosis No focal colitis. RECOMMENDATIONS: 1. Recommend surgical resection
[2019-09-07] MEDS: SODIUM BICARBONATE TAB 650 MG TAB PO SCH ×2 (14:00→21:11)
[2019-09-07] MEDS: SPIRONOLACTONE 25 MG TAB PO SCH ×2 (14:00→21:11)
[2019-09-07] MEDS: INSULIN DETEMIR (LEVEMIR) 100 UNIT/ML SYR SQ SCH (14:00)
[2019-09-07] MEDS: POTASSIUM CHLORIDE ER 10 MEQ TAB.ER.PRT PO SCH ×2 (14:00→21:05)
[2019-09-07] MEDS: ALLOPURINOL 100 MG TAB PO SCH ×2 (14:00→21:11)
--- NOTE | 2019-09-07 14:03 | CDI ---
Documentation Clarification Form Date: 09/07/2019 1:58:19 PM From: Heena Hayden RN, CCDS Admit Date: 09/05/2019 3:52:00 PM Patient Name: Libertad Callaway Visit Number: [id number] ATTENTION: The Clinical Documentation Specialists (CDI) and [facility] Coding Staff appreciate your assistance in clarifying documentation. Please respond to the clarification below the line at the bottom and electronically sign. The CDI & [facility] Coding staff will review the response and follow-up if needed. Please note: Queries are made part of the Legal Health Record. If you have any questions, please contact the author of this message via ITS. Dr. Rob Sam A diagnosis of anemia lacks specificity to accurately reflect your patients severity of condition and clarification is needed. History/Risk Factors: CHF, aortic stenosis, htn, Briseyda filter Clinical indicators: 09/05 H&P: "Acute lower GI bleed most likely from malignancy." 09/06 GI Progress note: "Anemia related to lower gastrointestinal bleed." Hemoglobin: 9.2/8.1/8.2 Hematocrit: 29.1/25/25.6 Treatment: Monitoring labs Iv Iron In order to capture the severity of condition, please clarify the type of anemia and etiology if known: Acute blood loss anemia Acute on chronic blood loss anemia Chronic blood loss anemia Iron deficiency anemia Anemia due to malignancy Nutritional anemia Anemia of chronic kidney disease Unable to determine Other, please specify (Last Revision: July 2017) Possible anemia off chronic disease secondary to suspected malignancy MTDD
[2019-09-07] MEDS: FUROSEMIDE 80 MG TAB PO SCH ×2 (15:28→17:40)
[2019-09-07] MEDS: SODIUM CHLORIDE 0.9% 1,000 ML IV SCH (16:04)
[2019-09-07 17:10] LABS: Glucose,Whole Blood 151 mg/dL (75-99)
[2019-09-07] MEDS ORDERED: Antibiotics per Pharmacy 1 EACH MISC MISCELLANE PRN (17:41)
--- NOTE | 2019-09-07 17:52 | P.PN ---
Progress Note - Text Progress Note Date: 09/07/19 All questions and answered described. Blood work of CEA, CA-125 and rbc Folate reviewed all are elevated. Colon resection described. CODE status reviewed for which she still wants FULL code. I spoke to the patient's daughter and son regarding surgical options where resection for palliation described.
[2019-09-07] MEDS ORDERED: SODIUM FERRIC GLUCONAT-SUCROSE 125 MG in SODIUM CHLORIDE 0.9% 100 ML IVPB SCH (18:00)
[2019-09-07] MEDS ORDERED: metroNIDAZOLE 500 MG TAB PO SCH (18:00)
[2019-09-07] MEDS: NEOMYCIN 500 MG TAB PO SCH ×2 (19:39→21:12)
[2019-09-07] MEDS: metroNIDAZOLE 500 MG TAB PO SCH (19:39)
--- NOTE | 2019-09-07 20:08 | P.PN ---
Progress Note - Text Progress Note Date: 09/07/19 Chief Complaint: Lower GI bleed History of presenting complaint: This is a very pleasant 89-year-old patient who follows with visiting physicians Dr. Amor. Chronic stable medical conditions include congestive heart failure with EF of 50%, aortic stenosis, mitral regurgitation, mitral stenosis, tricuspid regurgitation, secondary probably hypertension, diabetes, hypertension, osteoarthritis, hypothyroid, blind left eye, coronary artery disease, Kevin filter.. Patient does use a walker. Patient did have a computed tomography scan of the abdomen on August 30 and did show mass along the lateral wall of the ascending colon and also adjacent soft tissue omental mass and is also another additional mass present in intra-abdominally. Suggestive of metastatic disease. Patient yesterday had some bleeding per the right rectum. And decided to come in. Patient's been having lower abdominal discomfort. She was admitted to the ER. Patient normally does use a walker. Lives alone. Today-so the patient before the procedure today. Laying in bed. Slight a bdominal discomfort. Just feels a bit tired. Some of the bedside. Did go down for colonoscopy later today. Review of systems: Was done for constitutional, cardiovascular, GI, pulmonary. relevant finding as above Active Medications Acetaminophen (Tylenol Tab) 650 mg PO Q6HR PRN PRN Reason: Fever and/ or Pain Last Admin: 09/07/19 15:59 Dose: 650 mg Documented by: Allopurinol (Zyloprim) 100 mg PO BID [facility] Last Admin: 09/07/19 14:00 Dose: 100 mg Documented by: Alvimopan (Entereg) 12 mg PO ONCE ONE Stop: 09/08/19 09:01 Carvedilol (Coreg) 3.125 mg PO BID-W/MEALS [facility] Last Admin: 09/07/19 19:40 Dose: 3.125 mg Documented by: Furosemide (Lasix) 80 mg PO BID@0900,1700 [facility] Last Admin: 09/07/19 17:40 Dose: Not Given Documented by: Heparin Sodium (Porcine) (Heparin) 5,000 unit SQ ONCE ONE Stop: 09/08/19 12:01 Lactated Ringer's (Lactated Ringers) 1,000 mls @ 20 mls/hr IV .Q24H [facility] Last Admin: 09/06/19 23:58 Dose: 20 mls/hr Documented by: Ferric Sodium Gluconate 125 mg (/ Sodium Chloride) 110 mls @ 100 mls/hr IVPB DAILY [facility] Stop: 09/08/19 10:05 Last Admin: 09/07/19 09:31 Dose: 100 mls/hr Documented by: Sodium Chloride (Saline 0.9%) 1,000 mls @ 100 mls/hr IV .Q10H [facility] Last Admin: 09/07/19 16:04 Dose: 100 mls/hr Documented by: Cefazolin Sodium 2 gm/ Sodium (Chloride) 50 mls @ 100 mls/hr IVPB ONCE ONE Stop: 09/08/19 08:29 Metronidazole 500 mg/ IV (Solution) 100 mls @ 100 mls/hr IVPB ONCE ONE Stop: 09/08/19 08:59 Insulin Aspart (Novolog) 0 unit SQ ACHS [facility]; Protocol Last Admin: 09/07/19 19:40 Dose: Not Given Documented by: Insulin Detemir (Levemir) 10 unit SQ DAILY@0700 [facility] Last Admin: 09/07/19 14:00 Dose: 10 unit Documented by: Levothyroxine Sodium (Synthroid) 75 mcg PO DAILY@0630 [facility] Last Admin: 09/07/19 06:19 Dose: 75 mcg Documented by: Meclizine HCl (Antivert) 12.5 mg PO TID PRN PRN Reason: NAUSEA AND DIZZINESS Melatonin (Melatonin) 2 mg PO HS PRN PRN Reason: Insomnia Last Admin: 09/06/19 23:56 Dose: 2 mg Documented by: Metronidazole (Flagyl) 1,000 mg PO TID@0600,1800,1900 [facility] Stop: 09/08/19 06:01 Last Admin: 09/07/19 19:39 Dose: 1,000 mg Documented by: Neomycin Sulfate (Neomycin) 1,000 mg PO TID@1800,1900,0600 [facility] Stop: 09/08/19 06:01 Last Admin: 09/07/19 19:39 Dose: 1,000 mg Documented by: Potassium Chloride (K-Dur 10) 10 meq PO BID [facility] Last Admin: 09/07/19 14:00 Dose: 10 meq Documented by: Sodium Bicarbonate (Sodium Bicarbonate Tab) 650 mg PO BID [facility] Last Admin: 09/07/19 14:00 Dose: 650 mg Documented by: Spironolactone (Aldactone) 25 mg PO BID [facility] Last Admin: 09/07/19 14:00 Dose: 25 mg Documented by: Physical examination: VITAL SIGNS: 97.7, 73, 17, 105/68, 96% on room air GENERAL: Laying in bed, awake EYES: Pupils equal. Conjunctiva normal. HEENT: External appearance of nose and ears normal, oral cavity grossly normal. NECK: JVD not raised; masses not palpable. HEART: First and second heart sounds are normal; no edema. LUNGS: Respiratory rate normal; clear to auscultation. ABDOMEN: Soft, mass palpable on the right side, with some tenderness,, liver spleen not palpable, no masses palpable. PSYCH: Alert and oriented x3; mood and affect normal. MUSCULOSKELETAL: Evidence of OA especially in the hands and knees INVESTIGATIONS, reviewed in the clinical context: White count 8.4 hemoglobin 8.2 platelets 232 progression bun 59 creatinine 1.7 Previous testing White count 9.6 hemoglobin 9.2 platelets 240 progression 4.7 BUN 73 creatinine 1.79 Computed tomography scan of the abdomen-results noted as above Assessment: -Ascending colon mass, per coloscopy -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 Late in the day patient did go down for colonoscopy. Results as above..
[2019-09-07 20:21] LABS: Glucose,Whole Blood 272 mg/dL (75-99)
[2019-09-07] MEDS ORDERED: HYDROmorphone 0.5 MG/0.5 ML SYRINGE IVP PRN (20:57)
[2019-09-07] MEDS ORDERED: ONDANSETRON 4 MG/2 ML VIAL IVP PRN (20:57)
[2019-09-07] MEDS: LACTATED RINGERS 1,000 ML IV SCH (21:04)
[2019-09-07] MEDS: MELATONIN 1 MG TAB PO PRN (22:22)
[2019-09-08] MEDS: SODIUM CHLORIDE 0.9% 1,000 ML IV SCH ×3 (05:50→21:54)
[2019-09-08] MEDS: LACTATED RINGERS 1,000 ML IV SCH ×2 (05:50→21:55)
[2019-09-08 06:54] LABS: Glucose,Whole Blood 96 mg/dL (75-99)
[2019-09-08] MEDS: INSULIN DETEMIR (LEVEMIR) 100 UNIT/ML SYR SQ SCH (07:50)
[2019-09-08] MEDS: INSULIN ASPART (NovoLOG) 100 UNIT/ML VIAL SQ SCH ×4 (07:50→21:54)
[2019-09-08] MEDS: CARVEDILOL 3.125 MG TAB PO SCH ×2 (08:06→17:39)
[2019-09-08] MEDS: FUROSEMIDE 80 MG TAB PO SCH ×2 (08:06→17:38)
[2019-09-08] MEDS: SODIUM BICARBONATE TAB 650 MG TAB PO SCH ×2 (08:06→21:56)
[2019-09-08] MEDS: POTASSIUM CHLORIDE ER 10 MEQ TAB.ER.PRT PO SCH ×2 (08:06→21:56)
[2019-09-08] MEDS: LEVOTHYROXINE 75 MCG TAB PO SCH (08:06)
[2019-09-08] MEDS: SPIRONOLACTONE 25 MG TAB PO SCH ×2 (08:06→21:56)
[2019-09-08] MEDS: ALLOPURINOL 100 MG TAB PO SCH ×2 (08:06→21:56)
[2019-09-08] MEDS: metroNIDAZOLE 500 MG TAB PO SCH (08:07)
[2019-09-08] MEDS: NEOMYCIN 500 MG TAB PO SCH (08:07)
[2019-09-08] MEDS ORDERED: ALVIMOPAN 12 MG CAPSULE PO ONE (09:00)
[2019-09-08 09:39] LABS: Anisocytosis Slight; Basophils % (A) 1 %; Eosinophils # (A) 0.4 k/uL (0-0.7); Eosinophils % (A) 4 %; HCT 25.1 % (34.0-46.0); HGB 8.2 gm/dL (11.4-16.0); Hypochromasia Moderate; Lymphocytes # (A) 1.1 k/uL (1.0-4.8); Lymphocytes % (A) 13 %; MCH 30.6 pg (25.0-35.0); MCHC 32.5 g/dL (31.0-37.0); MCV 94.2 fL (80.0-100.0); Mean Platelet Volume 8.2; Monocytes # (A) 0.7 k/uL (0-1.0); Monocytes % (A) 8 %; Neutrophils # (A) 6.2 k/uL (1.3-7.7); Neutrophils % (A) 73 %; Platelet Count 242 k/uL (150-450); Poikilocytosis Moderate; RBC 2.67 m/uL (3.80-5.40); RDW 16.1 % (11.5-15.5); WBC 8.6 k/uL (3.8-10.6)
[2019-09-08 09:50] LABS: Albumin 3.1 g/dL (3.5-5.0); Potassium 4.2 mmol/L (3.5-5.1); Total Bilirubin 1.4 mg/dL (0.2-1.3); Total Protein 5.5 g/dL (6.3-8.2)
[2019-09-08] MEDS: SODIUM FERRIC GLUCONAT-SUCROSE 125 MG in SODIUM CHLORIDE 0.9% 100 ML IVPB SCH (09:56)
--- NOTE | 2019-09-08 11:00 | CDI ---
Documentation Clarification Form Date: 09/08/2019 10:49:00 AM From: Heena Hayden RN, CCDS Admit Date: 09/05/2019 3:52:00 PM Patient Name: Libertad Callaway Visit Number: [id number] ATTENTION: The Clinical Documentation Specialists (CDI) and [facility] Coding Staff appreciate your assistance in clarifying documentation. Please respond to the clarification below the line at the bottom and electronically sign. The CDI & [facility] Coding staff will review the response and follow-up if needed. Please note: Queries are made part of the Legal Health Record. If you have any questions, please contact the author of this message via ITS. Dr. Rob Sam History/Risk Factors: CHF, Aortic stenosis, Pulmonary HTN, HTN, DM, CAD 05/25/19 Patients baseline BUN/CR/GFR: 36/1.29/37 Clinical Indicators: 09/06 Oncology Progress Note: "Patient also has a history of chronic renal insufficiency from chart review, which could be contributing to her anemia as well." Current BUN: 73/59/45 Cr: 1.79/1.7/1.57 GFR: // Treatment: IVF: ivf bolus Other Several doses of IV Lasix, currently on Lasix 80 mg PO BID Aldactone 25 mg PO QD In order to capture the severity of condition, please clarify if the condition signifies: Acute renal failure, Please specify etiology (if known): Cortical Necrosis Medullary Necrosis Tubular Necrosis Acute kidney injury Acute on chronic renal failure CKD Stage 1 GFR >90 CKD Stage 2 GFR 60-89 CKD Stage 3 GFR 30-59 CKD Stage 4 GFR 15-29 CKD Stage 5 GFR <15 Chronic renal failure/Chronic Kidney disease (CKD) please stage (if known): CKD Stage 1 GFR >90 CKD Stage 2 GFR 60-89 CKD Stage 3 GFR 30-59 CKD Stage 4 GFR 15-29 CKD Stage 5 GFR <15 ESRD Other, please specify Unable to determine (Last Revision: January 2018) 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
[2019-09-08] MEDS: ACETAMINOPHEN TAB 325 MG TAB PO PRN ×2 (11:06→21:59)
[2019-09-08 11:35] LABS: Glucose,Whole Blood 147 mg/dL (75-99)
--- NOTE | 2019-09-08 11:49 | P.HPADDEND ---
H&P Addendum H&P Addendum Date: 09/08/19 Patient seen and evaluated. I was personally contacted by the oncologist Dr العراقي regarding her care. Patient has declined any chemotherapy. She is aware that surgery is only palliative for bleeding and obstruction. Patient wished to proceed with surgery.
[2019-09-08] MEDS ORDERED: HEPARIN SODIUM,PORCINE 5,000 UNIT/ML 1 ML VIAL SQ ONE (12:00)
[2019-09-08] MEDS ORDERED: metroNIDAZOLE-NS PMX 500 MG in SALINE 1 100ML.BAG IVPB ONE (14:00)
[2019-09-08 17:04] LABS: Glucose,Whole Blood 137 mg/dL (75-99)
--- NOTE | 2019-09-08 17:28 | P.PN ---
Progress Note - Text Progress Note Date: 09/08/19 Due to multiple surgical emergencies today, surgical case is deferred. In the interim, recommend increase protein stores and albumin with high protein diet as patient has been NPO and liquid diet over 72 hrs. All questions were reviewed with the patient and her family who were agreeable with the care plan.
--- NOTE | 2019-09-08 18:21 | P.PN ---
Subjective Progress Note Date: 09/08/19 Principal diagnosis: abdominal mass In follow-up today patient denies any progressive symptoms or new complaints. Objective - Vital Signs Vital signs: Vital Signs Temp 97.9 F 09/08/19 11:43 Pulse 78 09/08/19 11:43 Resp 17 09/08/19 11:43 BP 110/55 09/08/19 11:43 Pulse Ox 96 09/08/19 11:43 Intake & Output 09/07/19 09/08/19 09/08/19 18:59 06:59 18:59 Intake Total 150 900 Balance 150 900 Intake: IV 150 Intake, IV Titration 900 Amount Sodium Chloride 0.9% 1, 800 000 ml @ 100 mls/hr IV . Q10H [facility] Rx#:[id number] Sodium Ferric Gluconat- 100 Sucrose 125 mg In Sodium Chloride 0.9% 100 ml @ 100 mls/hr IVPB DAILY [facility] Rx#:[id number] Oral 0 Other: Voiding Method Bedside Commode Bedside Commode # Voids 3 2 6 # Bowel Movements 1 - Constitutional General appearance: Present: cooperative, no acute distress, obese - EENT Eyes: Present: anicteric sclerae ENT: Present: hearing grossly normal - Respiratory Details: respirations even and unlabored - Cardiovascular Details: skin warm and dry - Gastrointestinal General gastrointestinal: Present: soft - Musculoskeletal Musculoskeletal: Present: strength equal bilaterally - Psychiatric Psychiatric: Present: A&O x's 3, appropriate affect, intact judgment & insight - Labs CBC & Chem 7: 09/08/19 09:13 09/08/19 09:13 Labs: Abnormal Lab Results - Last 24 Hours (Table) 09/07/19 09/08/19 09/08/19 Range/Units 20:19 09:13 09:13 RBC 2.67 L (3.80-5.40) m/uL Hgb 8.2 L (11.4-16.0) gm/dL Hct 25.1 L (34.0-46.0) % RDW 16.1 H (11.5-15.5) % Chloride 108 H (98-107) mmol/L Carbon Dioxide 21 L (22-30) mmol/L BUN 45 H (7-17) mg/dL Creatinine 1.57 H (0.52-1.04) mg/dL Glucose 145 H (74-99) mg/dL POC Glucose (mg/dL) 272 H (75-99) mg/dL Total Bilirubin 1.4 H (0.2-1.3) mg/dL Alkaline Phosphatase 149 H (38-126) U/L Total Protein 5.5 L (6.3-8.2) g/dL Albumin 3.1 L (3.5-5.0) g/dL 09/08/19 09/08/19 Range/Units 11:34 16:52 RBC (3.80-5.40) m/uL Hgb (11.4-16.0) gm/dL Hct (34.0-46.0) % RDW (11.5-15.5) % Chloride (98-107) mmol/L Carbon Dioxide (22-30) mmol/L BUN (7-17) mg/dL Creatinine (0.52-1.04) mg/dL Glucose (74-99) mg/dL POC Glucose (mg/dL) 147 H 137 H (75-99) mg/dL Total Bilirubin (0.2-1.3) mg/dL Alkaline Phosphatase (38-126) U/L Total Protein (6.3-8.2) g/dL Albumin (3.5-5.0) g/dL Assessment and Plan (1) GI bleed Narrative/Plan: Patient has had in the past. Last colonoscopy 5 years ago. Patient has history of polyps. Surgery consult Hemoglobin not requiring transfusion at this time. Transfuse to keep hemoglobin 7 or higher. Patient also has a history of chronic renal insufficiency from chart review, which could be contributing to her anemia as well. Current Visit: Yes Status: Acute Priority: High Code(s): K92.2 - GASTROINTESTINAL HEMORRHAGE, UNSPECIFIED SNOMED Code(s): 39198930 (2) Anemia Narrative/Plan: Anemia workup reveled iron deficiency. IV iron was given Current Visit: Yes Status: Chronic Priority: Medium Code(s): D64.9 - ANEMIA, UNSPECIFIED SNOMED Code(s): 091921061 (3) Abdominal mass Narrative/Plan: Dr. العراقي discussed the case with the surgical team. He also reviewed with the patient the situation. Patient does have evidence of metastatic disease. Patient aware that surgery will not cure her disease. She is not sure if she is interested in pursuing any chemotherapy. Patient is going to proceed with surg patti. She can follow up with oncology about 4-6 weeks postoperatively to discuss any other questions, concerns or relevant therapies. Current Visit: Yes Status: Acute Priority: High Code(s): R19.00 - INTRA- ABD AND PELVIC SWELLING, MASS AND LUMP, UNSP SITE SNOMED Code(s): 589420502 Plan: Doctor attests: I performed a history and physical examination of this patient, developed impression and plan of care. Discussed with dictator. I agree with dictators note, documented as a scribe.
--- NOTE | 2019-09-08 21:23 | P.PN ---
Progress Note - Text Progress Note Date: 09/08/19 Chief Complaint: Lower GI bleed History of presenting complaint: This is a very pleasant 89-year-old patient who follows with visiting physicians Dr. Amor. Chronic stable medical conditions include congestive heart failure with EF of 50%, aortic stenosis, mitral regurgitation, mitral stenosis, tricuspid regurgitation, secondary probably hypertension, diabetes, hypertension, osteoarthritis, hypothyroid, blind left eye, coronary artery disease, Cabery filter.. Patient does use a walker. Patient did have a computed tomography scan of the abdomen on August 30 and did show mass along the lateral wall of the ascending colon and also adjacent soft tissue omental mass and is also another additional mass present in intra-abdominally. Suggestive of metastatic disease. Patient yesterday had some bleeding per the right rectum. And decided to come in. Patient's been having lower abdominal discomfort. She was admitted to the ER. Patient normally does use a walker. Lives alone. Colonoscopy done on September 07 shows ascending colon mass and AV malformation was some slight bleeding. Today-. The patient does morning. Laying in bed. Tired. Pending surgery later today. No new issues. Review of systems: Was done for constitutional, cardiovascular, GI, pulmonary. relevant finding as above Active Medications Acetaminophen (Tylenol Tab) 650 mg PO Q6HR PRN PRN Reason: Fever and/ or Pain Last Admin: 09/08/19 11:06 Dose: 650 mg Documented by: Allopurinol (Zyloprim) 100 mg PO BID [facility] Last Admin: 09/08/19 08:06 Dose: 100 mg Documented by: Carvedilol (Coreg) 3.125 mg PO BID-W/MEALS [facility] Last Admin: 09/08/19 17:39 Dose: 3.125 mg Documented by: Furosemide (Lasix) 80 mg PO BID@0900,1700 [facility] Last Admin: 09/08/19 17:38 Dose: 80 mg Documented by: Lactated Ringer's (Lactated Ringers) 1,000 mls @ 20 mls/hr IV .Q24H [facility] Last Admin: 09/08/19 05:50 Dose: Not Given Documented by: Sodium Chloride (Saline 0.9%) 1,000 mls @ 100 mls/hr IV .Q10H [facility] Last Admin: 09/08/19 08:17 Dose: 100 mls/hr Documented by: Lactated Ringer's (Lactated Ringers) 1,000 mls @ 20 mls/hr IV .Q24H [facility] Last Admin: 09/07/19 21:04 Dose: Not Given Documented by: Insulin Aspart (Novolog) 0 unit SQ ACHS [facility]; Protocol Last Admin: 09/08/19 17:42 Dose: 1 unit Documented by: Insulin Detemir (Levemir) 10 unit SQ DAILY@0700 [facility] Last Admin: 09/08/19 07:50 Dose: Not Given Documented by: Levothyroxine Sodium (Synthroid) 75 mcg PO DAILY@0630 [facility] Last Admin: 09/08/19 08:06 Dose: 75 mcg Documented by: Meclizine HCl (Antivert) 12.5 mg PO TID PRN PRN Reason: NAUSEA AND DIZZINESS Melatonin (Melatonin) 2 mg PO HS PRN PRN Reason: Insomnia Last Admin: 09/07/19 22:22 Dose: 2 mg Documented by: Potassium Chloride (K-Dur 10) 10 meq PO BID [facility] Last Admin: 09/08/19 08:06 Dose: 10 meq Documented by: Sodium Bicarbonate (Sodium Bicarbonate Tab) 650 mg PO BID [facility] Last Admin: 09/08/19 08:06 Dose: 650 mg Documented by: Spironolactone (Aldactone) 25 mg PO BID [facility] Last Admin: 09/08/19 08:06 Dose: 25 mg Documented by: Physical examination: VITAL SIGNS: 97.9, 78, 70, 110/55, 96% room air GENERAL: Laying in bed, awake EYES: Pupils equal. Conjunctiva normal. HEENT: External appearance of nose and ears normal, oral cavity grossly normal. NECK: JVD not raised; masses not palpable. HEART: First and second heart sounds are normal; no edema. LUNGS: Respiratory rate normal; clear to auscultation. ABDOMEN: Soft, mass palpable on the right side, with some tenderness,, liver spleen not palpable, no masses palpable. PSYCH: Alert and oriented x3; mood and affect normal. MUSCULOSKELETAL: Evidence of OA especially in the hands and knees INVESTIGATIONS, reviewed in the clinical context: White count 8.4 hemoglobin 8.2 platelets 232 progression bun 59 creatinine 1.7 Previous testing White count 8.6 hemoglobin 8.2 platelets 242 progression 4.2 bun 45 creatinine 1.57 Previous testing White count 9.6 hemoglobin 9.2 platelets 240 progression 4.7 BUN 73 creatinine 1.79 Computed tomography scan of the abdomen-results noted as above Assessment: -Ascending colon mass, per coloscopy, pending surgery -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 Awaiting to go down for surgery this afternoon. Other medications to continue.
[2019-09-08 21:33] LABS: Glucose,Whole Blood 176 mg/dL (75-99)
[2019-09-08] MEDS: MELATONIN 1 MG TAB PO PRN (22:23)
[2019-09-09] MEDS: LACTATED RINGERS 1,000 ML IV SCH ×2 (04:31→22:27)
[2019-09-09] MEDS: LEVOTHYROXINE 75 MCG TAB PO SCH (06:24)
[2019-09-09] MEDS: SODIUM CHLORIDE 0.9% 1,000 ML IV SCH ×3 (06:25→21:30)
[2019-09-09 06:59] LABS: Glucose,Whole Blood 152 mg/dL (75-99)
[2019-09-09] MEDS: SODIUM BICARBONATE TAB 650 MG TAB PO SCH ×2 (07:32→21:10)
[2019-09-09] MEDS: SPIRONOLACTONE 25 MG TAB PO SCH ×2 (07:33→21:10)
[2019-09-09] MEDS: POTASSIUM CHLORIDE ER 10 MEQ TAB.ER.PRT PO SCH ×2 (07:33→21:10)
[2019-09-09] MEDS: ALLOPURINOL 100 MG TAB PO SCH ×2 (07:33→21:10)
[2019-09-09] MEDS: INSULIN DETEMIR (LEVEMIR) 100 UNIT/ML SYR SQ SCH (07:33)
[2019-09-09] MEDS: CARVEDILOL 3.125 MG TAB PO SCH ×2 (07:33→16:38)
[2019-09-09] MEDS: FUROSEMIDE 80 MG TAB PO SCH ×2 (07:34→16:38)
[2019-09-09] MEDS: INSULIN ASPART (NovoLOG) 100 UNIT/ML VIAL SQ SCH ×4 (07:34→21:10)
[2019-09-09] MEDS: ACETAMINOPHEN TAB 325 MG TAB PO PRN ×2 (10:24→21:10)
[2019-09-09 11:14] LABS: Glucose,Whole Blood 189 mg/dL (75-99)
--- NOTE | 2019-09-09 13:10 | P.PN ---
<Maura Villanueva A - Last Filed: 09/09/19 13:07> Subjective Progress Note Date: 09/09/19 CHIEF COMPLAINT: Abdominal pain HISTORY OF PRESENT ILLNESS: Patient seen and examined at bedside. Patient reports pain in the middle of her abdomen and also the right upper quadrant after eating yesterday. She denies nausea or vomiting. Tolerating regular diet. Vital signs stable. PHYSICAL EXAM: VITAL SIGNS: Currently stable. GENERAL: Well-developed in no acute distress. HEENT: No sclera icterus. Extraocular movements grossly intact. Moist buccal mucosa. Head is atraumatic, normocephalic. Hears conversational speech. No nasal drainage. NECK: Supple without lymphadenopathy. CHEST: Non-labored respirations and equal bilateral excursions. CARDIOVASCULAR: Regular rate with regular rhythm. Palpable 2+ radial pulses. ABDOMEN: Soft. Nondistended. Nontender. MUSCULOSKELETAL: No clubbing, cyanosis or edema. NEUROLOGIC: No focal or lateralizing signs. Cranial nerves II through XII grossly intact. PSYCH: Appropriate affect. Alert and oriented to person, place and time. SKIN: Well perfused. Good skin turgor. ASSESSMENT: 1. Abnormal computed tomography scan with ascending colon mass 2. Rectal bleeding PLAN: Continue diet as tolerated today Patient scheduled for exploratory laparotomy with colectomy tomorrow with Dr. Parkinson Nurse practitioner note has been reviewed by physician. Signing provider agrees with the documented findings, assessment, and plan of care. Objective - Vital Signs Vital signs: Vital Signs Temp 97.4 F L 09/09/19 05:44 Pulse 68 09/09/19 08:00 Resp 16 09/09/19 08:00 BP 97/64 09/09/19 05:44 Pulse Ox 98 09/09/19 05:44 Intake & Output 09/08/19 09/09/19 09/09/19 18:59 06:59 18:59 Intake Total 1380 290 Output Total 400 400 Balance 980 290 -400 Weight 79.9 kg Intake: Intake, IV Titration 900 Amount Sodium Chloride 0.9% 1, 800 000 ml @ 100 mls/hr IV . Q10H IERNE Rx#:[id number] Sodium Ferric Gluconat- 100 Sucrose 125 mg In Sodium Chloride 0.9% 100 ml @ 100 mls/hr IVPB DAILY IRENE Rx#:[id number] Oral 480 290 Output: Urine 400 400 Other: Voiding Method Bedside Commode Bedside Commode Bedside Commode # Voids 6 1 1 - Labs CBC & Chem 7: 09/08/19 09:13 09/08/19 09:13 Labs: Abnormal Lab Results - Last 24 Hours (Table) 09/08/19 09/08/19 09/09/19 Range/Units 16:52 21:32 06:58 POC Glucose (mg/dL) 137 H 176 H 152 H (75-99) mg/dL 09/09/19 Range/Units 11:12 POC Glucose (mg/dL) 189 H (75-99) mg/dL <Kassie Parkinson N - Last Filed: 09/10/19 12:11> Subjective Tolerated diet. We'll proceed with surgical options. Objective - Vital Signs Vital signs: Vital Signs Temp 97.7 F 09/10/19 10:05 Pulse 82 09/10/19 10:05 Resp 18 09/10/19 10:05 BP 110/62 09/10/19 10:05 Pulse Ox 94 L 09/10/19 04:38 Intake & Output 09/09/19 09/10/19 09/10/19 18:59 06:59 18:59 Intake Total 160 900 Output Total 800 Balance -640 900 Weight 79.9 kg 81.7 kg 81.7 kg Intake: Intake, IV Titration 160 900 Amount Lactated Ringers 1,000 ml 160 @ 20 mls/hr IV .Q24H IRENE Rx#:[id number] Sodium Chloride 0.9% 1, 900 000 ml @ 100 mls/hr IV . Q10H IRENE Rx#:[id number] Output: Urine 800 Other: Voiding Method Bedside Commode Bedside Commode # Voids 1 1 # Bowel Movements 1 - Labs CBC & Chem 7: 09/08/19 09:13 09/08/19 09:13 Labs: Abnormal Lab Results - Last 24 Hours (Table) 09/09/19 09/09/19 09/10/19 Range/Units 16:53 20:02 07:18 POC Glucose (mg/dL) 161 H 216 H 144 H (75-99) mg/dL 09/10/19 Range/Units 11:36 POC Glucose (mg/dL) 152 H (75-99) mg/dL
--- NOTE | 2019-09-09 15:06 | P.PN ---
Progress Note - Text Progress Note Date: 09/06/19 Chief Complaint: Lower GI bleed History of presenting complaint: This is a very pleasant 89-year-old patient who follows with visiting physicians Dr. Amor. Chronic stable medical conditions include congestive heart failure with EF of 50%, aortic stenosis, mitral regurgitation, mitral stenosis, tricuspid regurgitation, secondary probably hypertension, diabetes, hypertension, osteoarthritis, hypothyroid, blind left eye, coronary artery disease, Briseyda filter.. Patient does use a walker. Patient did have a computed tomography scan of the abdomen on August 30 and did show mass along the lateral wall of the ascending colon and also adjacent soft tissue omental mass and is also another additional mass present in intra-abdominally. Suggestive of metastatic disease. Patient yesterday had some bleeding per the right rectum. And decided to come in. Patient's been having lower abdominal discomfort. She was admitted to the ER. Patient normally does use a walker. Lives alone. Today-laying in bed. Tired. No new issues. Review of systems: Was done for constitutional, cardiovascular, GI, pulmonary. relevant finding as above Current medications reviewed in today's electronic records Physical examination: VITAL SIGNS: 98.1, 71, 17, 105/68, 95% room air GENERAL: Laying in bed, awake slightly anxious. EYES: Pupils equal. Conjunctiva normal. HEENT: External appearance of nose and ears normal, oral cavity grossly normal. NECK: JVD not raised; masses not palpable. HEART: First and second heart sounds are normal; no edema. LUNGS: Respiratory rate normal; clear to auscultation. ABDOMEN: Soft, mass palpable on the right side, with some tenderness,, liver spleen not palpable, no masses palpable. PSYCH: Alert and oriented x3; mood and affect normal. MUSCULOSKELETAL: Evidence of OA especially in the hands and knees INVESTIGATIONS, reviewed in the clinical context: White count 8.4 hemoglobin 8.1 platelets 214 Previous testing White count 9.6 hemoglobin 9.2 platelets 240 progression 4.7 BUN 73 creatinine 1.79 Computed tomography scan of the abdomen-results noted as above In 17 ferritin 38 CTA elevated at 299 CA-125 antigen elevated at 256 vitamin B12 3270 Assessment: -Acute lower GI bleed most likely from malignancy. Note that is fresh blood which could be a diverticular bleed. -Intra-abdominal malignancy with metastatic appearance, does not have a diagnosis at present. 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 surgery pending colonoscopy for tissue diagnosis. Other medications to continue. Care was discussed with the patient.
[2019-09-09 16:54] LABS: Glucose,Whole Blood 161 mg/dL (75-99)
[2019-09-09 20:04] LABS: Glucose,Whole Blood 216 mg/dL (75-99)
[2019-09-09] MEDS ORDERED: MORPHINE SULFATE 2 MG/ML SYRINGE IVP STA (21:28)
[2019-09-10] MEDS ORDERED: Antibiotics per Pharmacy 1 EACH MISC MISCELLANE PRN (00:30)
[2019-09-10] MEDS: LACTATED RINGERS 1,000 ML IV SCH ×2 (00:53→20:24)
[2019-09-10] MEDS ORDERED: HEPARIN SODIUM,PORCINE 5,000 UNIT/ML 1 ML VIAL SQ ONE ×2 (05:00→09:00)
[2019-09-10 07:19] LABS: Glucose,Whole Blood 144 mg/dL (75-99)
[2019-09-10] MEDS: LEVOTHYROXINE 75 MCG TAB PO SCH (07:27)
[2019-09-10] MEDS: CARVEDILOL 3.125 MG TAB PO SCH ×2 (07:48→18:16)
[2019-09-10] MEDS: SODIUM CHLORIDE 0.9% 1,000 ML IV SCH ×2 (07:49→22:21)
[2019-09-10] MEDS: INSULIN ASPART (NovoLOG) 100 UNIT/ML VIAL SQ SCH ×4 (07:52→22:20)
[2019-09-10] MEDS: ALLOPURINOL 100 MG TAB PO SCH ×3 (07:52→23:13)
[2019-09-10] MEDS: INSULIN DETEMIR (LEVEMIR) 100 UNIT/ML SYR SQ SCH (07:52)
[2019-09-10] MEDS: FUROSEMIDE 80 MG TAB PO SCH ×2 (07:53→18:15)
[2019-09-10] MEDS: SPIRONOLACTONE 25 MG TAB PO SCH ×3 (07:53→23:13)
[2019-09-10] MEDS: POTASSIUM CHLORIDE ER 10 MEQ TAB.ER.PRT PO SCH ×3 (07:54→23:13)
[2019-09-10] MEDS: SODIUM BICARBONATE TAB 650 MG TAB PO SCH ×3 (07:54→23:13)
[2019-09-10] MEDS ORDERED: ALVIMOPAN 12 MG CAPSULE PO ONE (09:00)
[2019-09-10] MEDS ORDERED: metroNIDAZOLE-NS PMX 500 MG in SALINE 1 100ML.BAG IVPB ONE (09:00)
[2019-09-10 11:38] LABS: Glucose,Whole Blood 152 mg/dL (75-99)
--- NOTE | 2019-09-10 12:15 | P.HPADDEND ---
H&P Addendum H&P Addendum Date: 09/10/19 We'll proceed with exploratory laparotomy colectomy, possible ostomy. Benefits risks proceeded described to patient and family who agreed to proceed.
--- NOTE | 2019-09-10 12:15 | P.PN ---
Subjective Progress Note Date: 09/10/19 CHIEF COMPLAINT: Large colon mass with bleeding HISTORY OF PRESENT ILLNESS: The patient is a 89-year-old female who presented with acute onset right lower quadrant abdominal pain including rectal bleeding moderate. Diagnostic studies are consistent with large colonic mass with multiple intra-abdominal deposits. Patient reports she does not want chemotherapy. Family is at bedside. She's been able to tolerate diet. She still reports right upper right lower quadrant abdominal pain. ROS: No reports of nausea and vomiting. No fevers or chills. No new chest pain. No productive sputum PHYSICAL EXAM: VITAL SIGNS: Reviewed CONSTITUTIONAL: Well developed and in no acute distress. EYES: Conjuctivae without sclera icterus. Extraocular movements grossly intact. HEAD, EARS, NOSE, THROAT: Moist buccal mucosa. Head is atraumatic, normocephalic. Hears conversational speech. No nasal drainage. RESPIRATORY: Non-labored respirations and equal bilateral excursions. CARDIOVASCULAR: Palpable 2+ radial pulses. Regular rate. Regular rhythm. ABDOMEN: Soft, no peritonitis. Tender right lower quadrant. MUSCULOSKELETAL: No gross deformity of the lower extremities noted. No clubbing. No cyanosis. 2+ bilateral lower extremity edema SKIN: Good skin turgor. Well perfused. NEUROLOGIC: Cranial nerves I through XII grossly intact. No focal or lateralizing signs. PSYCH: Appropriate affect. Alert and oriented to person, place and time. CLINICAL LABS: White blood cell count PATHOLOGY: Consistent with tubulovillous adenoma sample of large colon mass ASSESSMENT: 1. Colon cancer with large colon mass PLAN: 1. She has multiple family members including her children at bedside for support. 2. Palliative colectomy described secondary to ongoing pain and anemia with bleeding per patient's wishes 3. I personally spoke to anesthesia provider where patient may have a few ice chips prior to surgery. Objective - Vital Signs Vital signs: Vital Signs Temp 97.7 F 09/10/19 10:05 Pulse 82 09/10/19 10:05 Resp 18 09/10/19 10:05 BP 110/62 09/10/19 10:05 Pulse Ox 94 L 09/10/19 04:38 Intake & Output 09/09/19 09/10/19 09/10/19 18:59 06:59 18:59 Intake Total 160 900 Output Total 800 Balance -640 900 Weight 79.9 kg 81.7 kg 81.7 kg Intake: Intake, IV Titration 160 900 Amount Lactated Ringers 1,000 ml 160 @ 20 mls/hr IV .Q24H [facility]ENE Rx#:[id number] Sodium Chloride 0.9% 1, 900 000 ml @ 100 mls/hr IV . Q10H IRENE Rx#:[id number] Output: Urine 800 Other: Voiding Method Bedside Commode Bedside Commode # Voids 1 1 # Bowel Movements 1 - Labs CBC & Chem 7: 09/08/19 09:13 09/08/19 09:13 Labs: Abnormal Lab Results - Last 24 Hours (Table) 09/09/19 09/09/19 09/10/19 Range/Units 16:53 20:02 07:18 POC Glucose (mg/dL) 161 H 216 H 144 H (75-99) mg/dL 09/10/19 Range/Units 11:36 POC Glucose (mg/dL) 152 H (75-99) mg/dL Assessment and Plan (1) Abdominal mass Current Visit: Yes Status: Acute Priority: High Code(s): R19.00 - INTRA- ABD AND PELVIC SWELLING, MASS AND LUMP, UNSP SITE SNOMED Code(s): 110505222 (2) GI bleed Current Visit: Yes Status: Acute Priority: High Code(s): K92.2 - GASTROINTESTINAL HEMORRHAGE, UNSPECIFIED SNOMED Code(s): 35834505 (3) History of colon cancer Current Visit: Yes Status: Acute Code(s): Z85.038 - PERSONAL HISTORY OF MALIGNANT NEOPLASM OF LARGE INTESTINE SNOMED Code(s): 001974773 (4) Anemia Current Visit: Yes Status: Chronic Priority: Medium Code(s): D64.9 - ANEMIA, UNSPECIFIED SNOMED Code(s): 396897255
[2019-09-10] MEDS ORDERED: GLYCOPYRROLATE 0.2 MG/ML 2 ML VIAL ONE (13:29)
[2019-09-10] MEDS ORDERED: PHENYLEPHRINE-0.9% NACL SYG 1 MG/10 ML SYRINGE ONE (13:29)
[2019-09-10] MEDS ORDERED: ROCURONIUM BROMIDE 10 MG/ML 10 ML VIAL IV ONE (13:29)
[2019-09-10] MEDS ORDERED: LIDOCAINE 1% INJ 10MG/ML (20 ML MDV) ONE (13:29)
[2019-09-10] MEDS ORDERED: PROPOFOL 10 MG/ML 20 ML VIAL IV ONE (13:29)
[2019-09-10] MEDS ORDERED: NEOSTIGMINE 1 MG/ML 10 ML VIAL ONE (13:29)
[2019-09-10] MEDS ORDERED: SODIUM CHLORIDE 0.9% 1,000 ML IV ONE (13:29)
[2019-09-10] MEDS ORDERED: SUCCINYLCHOLINE CHLORIDE 100 MG/5 ML SYR IV ONE (13:29)
[2019-09-10] MEDS ORDERED: fentaNYL (PF) 50 MCG/ML 2 ML AMP ONE (13:29)
[2019-09-10] MEDS ORDERED: ONDANSETRON 4 MG/2 ML VIAL IVP PRN ×2 (13:30→13:31)
[2019-09-10] MEDS ORDERED: NALOXONE 0.4 MG/ML 1 ML VIAL IV PRN ×2 (13:30→18:15)
[2019-09-10] MEDS ORDERED: NALBUPHINE 10 MG/ML (1 ML AMP) IV PRN (13:30)
[2019-09-10] MEDS ORDERED: ROPIVACAINE 400 MG, HYDROMORPHONE (PF) 5 MG in SODIUM CHLORIDE 0.9% 170 ML EPIDURAL PRN (13:30)
[2019-09-10] MEDS ORDERED: MORPHINE SULFATE 2 MG/ML SYRINGE IV PRN (13:31)
--- NOTE | 2019-09-10 13:33 | P.ANPRN ---
Procedure Note - Anesthesia - Invasive Line Right Arterial Line Time Out Performed: Yes Date of Procedure: 09/10/19 Time of Procedure: 13:18 Location of Patient: PreOp Preparation: Sterile Prep, Sterile Dressing Arterial Line Location: Radial Ultrasound Used: No Narrative: arterial line placement per sterile protocol utilized.
[2019-09-10] MEDS ORDERED: metroNIDAZOLE-NS PMX 500 MG in SALINE 1 100ML.BAG IVPB STA (14:23)
[2019-09-10] MEDS ORDERED: LACTATED RINGERS 1,000 ML IV ONE ×3 (14:32→18:27)
[2019-09-10] MEDS: PROPOFOL 1,000 MG in EMPTY BAG 1 BAG IV SCH (19:00)
[2019-09-10 19:17] LABS: Glucose,Whole Blood 130 mg/dL (75-99)
[2019-09-10 19:21] LABS: ABG Base Excess -8.4 mmol/L; ABG HCO3 18 mmol/L (21-25); ABG PCO2 36 mmHg (35-45); ABG PH 7.31 (7.35-7.45); ABG PO2 324 mmHg (83-108); ABG TCO2 19 mmol/L (19-24); Allen Test Performed? Yes
[2019-09-10] MEDS ORDERED: FUROSEMIDE 10 MG/ML 2 ML VIAL IV ONE (19:47)
[2019-09-10] MEDS: NOREPINEPHRINE 8 MG in SODIUM CHLORIDE 0.9% 250 ML IV SCH (20:00)
--- NOTE | 2019-09-10 20:15 | XR ---
EXAMINATION TYPE: XR chest 1V portable DATE OF EXAM: 09/10/2019 COMPARISON: Chest x-ray 05/21/2019 HISTORY: Tube placement TECHNIQUE: Single frontal view of the chest is obtained. FINDINGS: Endotracheal tube terminates 1 cm from the alexis, retraction by approximately 2 cm is recommended. E nteric feeding tube with the side port terminating in the distal esophagus, advancement by at least 1 0 cm is recommended. 2-lead cardiac pacemaker with left chest wall power pack is stable in position. Cardiac silhouette is not enlarged. Mild pulmonary vascular congestion. Coarse calcifications project ing over the heart are likely valvular in etiology. Cardiac valve also noted. Atherosclerotic calcifi cations of the aorta. Streak-like by basilar opacities are favored to represent atelectasis. No pneum othorax. IMPRESSION: 1. Low position of endotracheal tube, retraction by approximately 2 cm is recommended. 2. Premature termination of enteric feeding tube, advancement by approximately 10 cm is recommended. 3. Streak-like by basilar opacities are favored to represent atelectasis, attention on follow-up imag ing. 4. Mild pulmonary vascular congestion.
[2019-09-10 20:31] LABS: Anisocytosis Slight; Basophils % (A) 0 %; Eosinophils % (A) 0 %; HCT 29.6 % (34.0-46.0); HGB 9.1 gm/dL (11.4-16.0); Hypochromasia Marked; Lymphocytes # (A) 1.1 k/uL (1.0-4.8); Lymphocytes % (A) 6 %; MCH 29.9 pg (25.0-35.0); MCHC 30.8 g/dL (31.0-37.0); MCV 97.1 fL (80.0-100.0); Macrocytosis Slight; Mean Platelet Volume 10.5; Monocytes # (A) 0.8 k/uL (0-1.0); Monocytes % (A) 5 %; Neutrophils # (A) 14.9 k/uL (1.3-7.7); Neutrophils % (A) 88 %; Platelet Count 282 k/uL (150-450); Poikilocytosis Moderate; RBC 3.05 m/uL (3.80-5.40); RDW 18.3 % (11.5-15.5); WBC 16.9 k/uL (3.8-10.6)
[2019-09-10 20:44] LABS: Albumin 2.4 g/dL (3.5-5.0); Calcium 8.5 mg/dL (8.4-10.2); Phosphorus 4.9 mg/dL (2.5-4.5); Potassium 4.7 mmol/L (3.5-5.1); Total Bilirubin 0.8 mg/dL (0.2-1.3); Total Protein 4.4 g/dL (6.3-8.2)
[2019-09-10 20:45] LABS: ABG HCO3 18 mmol/L (21-25); ABG Oxygen Saturation 99.8 % (94-97); ABG PCO2 36 mmHg (35-45); ABG PH 7.31 (7.35-7.45); ABG PO2 151 mmHg (83-108); ABG TCO2 19 mmol/L (19-24); Allen Test Performed? Yes
[2019-09-10 20:46] LABS: Appearance,Urine Cloudy (Clear); Bacteria,Urine Rare /hpf; Bilirubin,Urine Negative (Negative); Blood,Urine Moderate (Negative); Color,Urine Yellow; Glucose,Urine (UA) Negative (Negative); Hyaline Casts,Urine 6 /lpf (0-2); Ketones,Urine Negative (Negative); Leukocyte Esterase,Urine Large (Negative); Mucus,Urine Rare /hpf; Nitrite,Urine Negative (Negative); PH, Urine 5.5 (5.0-8.0); Protein,Urine 1+ (Negative); RBC,Urine >182 /hpf (0-5); Specific Gravity,Urine 1.017 (1.001-1.035); Squamous Epithelial Cell,Urine <1 /hpf (0-4); Urobilinogen,Urine <2.0 mg/dL (<2.0); WBC,Urine 164 /hpf (0-5)
--- NOTE | 2019-09-10 20:54 | P.OP ---
Date of Procedure: 09/10/19 Description of Procedure: PREOPERATIVE DIAGNOSES: 1. Ascending colon mass with rectal bleeding 2. Right lower quadrant abdominal pain 3. Chronic iron deficiency anemia 4. Congestive heart failure, diastolic, moderate 5. History of colon resection 6. Ischemic cardiomyopathy 7. History of atrial fibrillation 8. Past history of pulmonary embolism with Shawmut filter placement 9. Obstructive sleep apnea 10. 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 Hypertensive heart disease 12. History of CABG 13. History of aortic valvular replacement 14. Depressive disorder 15. Gout 16. Permanent pacemaker 17. Hypothyroidism POSTOP DIAGNOSES: 1. Ascending colon mass with rectal bleeding 2. Right lower quadrant abdominal pain 3. Chronic iron deficiency anemia 4. Congestive heart failure, diastolic, moderate 5. History of colon resection 6. Ischemic cardiomyopathy 7. History of atrial fibrillation 8. Past history of pulmonary embolism with Shawmut filter placement 9. Obstructive sleep apnea 10. 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 Hypertensive heart disease 12. History of CABG 13. History of aortic valvular replacement 14. Depressive disorder 15. Gout 16. Permanent pacemaker 17. Hypothyroidism 18. Small bowel obstruction due to tumor and pelvis and internal hernia 19. Incisional hernia epigastrium, 5 cm 20. 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 Exploratory laparotomy with lysis of adhesions over 2-1/2 to 3 hours 2. Extensive right hemicolectomy 3. Resection of transverse mesocolon tumor, 4 cm 4. Takedown of internal hernia pelvis 5. Small bowel resection distal jejunum to ileum, over 2 feet 6. Repair of incisional hernia, mid abdomen, 5-cm 7. Placement of round #19 drain left lower quadrant 8. Placement of incisional wound VAC system PREVENA, 20 cm SURGEON: Dr. Kassie Parkinson. ANESTHESIA: General with epidural. ESTIMATED BLOOD LOSS: 300 mL. SPECIMENS: 1. Distal jejunum to ileum small bowel resection 2. Transverse mesocolon mass 4 cm 3. Extended right colectomy 4. Anastomosis COMPLICATIONS: None. CONDITION: Guarded. INDICATIONS: The patient is a 89-year-old female who reports over 2-3 months history of right lower quadrant abdominal pain. As of recent, she had imaging studies demonstrating ascending colon mass. She also presented with rectal bleeding and anemia. Because of findings of likely metastatic disease of unclear etiology, patient was given options including nonsurgical, chemotherapy. She declined chemotherapy. She opted for surgical intervention for palliation for symptomatic right lower quadrant pain and rectal bleeding. Benefits, risks of procedure including bleeding, colostomy, infection, bowel resection were described in detail. Informed consent was obtained. DESCRIPTION: The patient was brought to the operating room. An epidural was placed per Anesthesia. After general induction, a Quan catheter was placed. The abdomen had been prepped and draped in standard sterile fashion including placement of Ioban draping. Prior to incision, a time-out protocol was confirmed with surgical team regarding the patient's name and procedures being performed. Initial attention was brought to this previous cicatrix of the mid to lower abdomen where a 5-cm epigastric midline incisional hernia was found. A #10 blade was used to enter the previous incision and deepened into the subcutaneous tissue. From and along the length of the incision, severe adhesions were found involving the small bowel and colon. Carefully the abdomen was entered using a combination of blunt dissection as well as Metzenbaum scissors and a #10 blade. Extensive lysis of adhesions occurred well over 2 hours upon entry into the abdomen to avoid any enterotomies or colotomies. Immediately, a 4 to 5 cm transverse mesocolon mass was found adjacent to the mid-transverse colon. The mesocolon mass was resected with Enseal. Tattoo along the hepatic flexure was found and prepared for resection. Five (5) cm proximal to the tatoo, the mesentery window was created. The colon was prepared for resection using Covidien 60-mm purple load. The right colon mass over 10-cm was palpated and mobilized using Vessel sealer. Seperately, ingrowth of tumor was found recurrent along a prior ostomy closure site along the abdominal wall of the right lower quadrant. The mass was resected with cautery. A strawberry like lesion along the serosa of the ascending colon, firm, calcified and easily friable was removed in total to the prior ileocolic anastomosis. The anastomosis was resected using 60-mm Covidien purple loads. The tumor invaded to the adjacent structures including right pelvis and abdominal wall and also resected. A point of resection was along the mid to distal jejunum. A 3-0 silk suture was placed along the antimesenteric border. Next the bowel was resected using a 60 mm Covidien purple staple load. On further inspection, an active internal hernia of the distal ileum with dense complex interwoven adhesions were found and ischemic with enteric spillage. Additionally, in the pelvis above the bladder, a tumor mass was found tethering the distal jejunum and ileum in a spiraling fashion. The small bowel was dissected along its mesentery using Vessel sealer. Next enterotomies were made along the antimesenteric border and a stapler 60 mm purple load was fired to create neolumen. The enterotomy was closed using similar stapler loads. The abdomen was copiously irrigated with over 1-L normal saline. Hemostasis had been checked. Given the moderate amount of irrigation, a round 19 drain was exited via the left lower quadrant with suction within the deep pelvis. The abdomen had been closed using double-stranded 0-PDS. Skin yakov was placed. A PREVENA 20-cm surgical dressing was placed lengthwise. Please note, a 2-0 nylon drain stitch was placed. The tubing was cut to size, and a DEEDEE bulb was placed. Optifoam dressing was also placed over the DEEDEE site. Towards the end of the procedure, she went into atrial fibrillation and hypotensive. Secondary to her severe heart disease, she was cardioverted into rhythm per the anesthesia provider and was taken directly into the intensive care unit. Intraabdominal findings and photos were reviewed at length with the patient's family.
[2019-09-10] MEDS: CHLORHEXIDINE GLUCONATE 15 ML CUP MUCOUS MEM SCH (22:24)
[2019-09-10 22:31] LABS: Glucose,Whole Blood 124 mg/dL (75-99)
[2019-09-11] MEDS ORDERED: SODIUM CHLORIDE 0.9% 1,000 ML IV ONE (00:05)
--- NOTE | 2019-09-11 00:08 | P.PN ---
Subjective Progress Note Date: 09/09/19 Principal diagnosis: Ascending colon mass History of presenting complaint: This is a very pleasant 89-year-old patient who follows with visiting physicians Dr. Amor. Chronic stable medical conditions include congestive heart failure with EF of 50%, aortic stenosis, mitral regurgitation, mitral stenosis, tricuspid regurgitation, secondary probably hypertension, diabetes, hyp ertension, osteoarthritis, hypothyroid, blind left eye, coronary artery disease, Briseyda filter.. Patient does use a walker. Patient did have a computed tomography scan of the abdomen on August 30 and did show mass along the lateral wall of the ascending colon and also adjacent soft tissue omental mass and is also another additional mass present in intra-abdominally. Suggestive of metastatic disease. Patient yesterday had some bleeding per the right rectum. And decided to come in. Patient's been having lower abdominal discomfort. She was admitted to the ER. Patient normally does use a walker. Lives alone. Colonoscopy done on September 07 shows ascending colon mass and AV malformation was some slight bleeding. Today-. The patient does morning. Laying in bed. Tired. Pending surgery tomorrow. No new issues. Review of systems: Was done for constitutional, cardiovascular, GI, pulmonary. relevant finding as above Objective - Vital Signs Vital signs: Vital Signs Temp 97.8 F 09/09/19 13:49 Pulse 88 09/09/19 13:49 Resp 18 09/09/19 13:49 BP 119/59 09/09/19 13:49 Pulse Ox 97 09/09/19 13:49 Intake & Output 09/08/19 09/09/19 09/09/19 18:59 06:59 18:59 Intake Total 1380 290 160 Output Total 400 400 Balance 980 290 -240 Weight 79.9 kg Intake: Intake, IV Titration 900 160 Amount Lactated Ringers 1,000 ml 160 @ 20 mls/hr IV .Q24H IRENE Rx#:[id number] Sodium Chloride 0.9% 1, 800 000 ml @ 100 mls/hr IV . Q10H IRENE Rx#:[id number] Sodium Ferric Gluconat- 100 Sucrose 125 mg In Sodium Chloride 0.9% 100 ml @ 100 mls/hr IVPB DAILY IRENE Rx#:[id number] Oral 480 290 Output: Urine 400 400 Other: Voiding Method Bedside Commode Bedside Commode Bedside Commode # Voids 6 1 1 - Exam GENERAL: Laying in bed, awake EYES: Pupils equal. Conjunctiva normal. HEENT: External appearance of nose and ears normal, oral cavity grossly normal. NECK: JVD not raised; masses not palpable. HEART: First and second heart sounds are normal; no edema. LUNGS: Respiratory rate normal; clear to auscultation. ABDOMEN: Soft, mass palpable on the right side, with some tenderness,, liver spleen not palpable, no masses palpable. PSYCH: Alert and oriented x3; mood and affect normal. MUSCULOSKELETAL: Evidence of OA especially in the hands and knees INVESTIGATIONS, reviewed in the clinical context: White count 8.4 hemoglobin 8.2 platelets 232 progression bun 59 creatinine 1.7 Previous testing White count 8.6 hemoglobin 8.2 platelets 242 progression 4.2 bun 45 creatinine 1.57 Previous testing White count 9.6 hemoglobin 9.2 platelets 240 progression 4.7 BUN 73 creatinine 1.79 Computed tomography scan of the abdomen-results noted as above - Labs CBC & Chem 7: 09/10/19 20:05 09/10/19 20:05 Labs: Abnormal Lab Results - Last 24 Hours (Table) 09/08/19 09/08/19 09/09/19 Range/Units 16:52 21:32 06:58 POC Glucose (mg/dL) 137 H 176 H 152 H (75-99) mg/dL 09/09/19 Range/Units 11:12 POC Glucose (mg/dL) 189 H (75-99) mg/dL Assessment and Plan Assessment: -Ascending colon mass, per coloscopy, pending surgery -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 Continue the pain management. Gen. surgery is planning for OR tomorrow.. Time with Patient: Greater than 30
--- NOTE | 2019-09-11 00:14 | P.PN ---
Subjective Progress Note Date: 09/10/19 Principal diagnosis: Ascending colon mass status post colectomy History of presenting complaint: This is a very pleasant 89-year-old patient who follows with visiting physicians Dr. Amor. Chronic stable medical conditions include congestive heart failure with EF of 50%, aortic stenosis, mitral regurgitation, mitral stenosis, tricuspid regurgitation, secondary probably hypertension, diabetes, hypertension, osteoarthritis, hypothyroid, blind left eye, coronary artery disease, Briseyda filter.. Patient does use a walker. Patient did have a computed tomography scan of the abdomen on August 30 and did show mass along the lateral wall of the ascending colon and also adjacent soft tissue omental mass and is also another additional mass present in intra-abdominally. Suggestive of metastatic disease. Patient yesterday had some bleeding per the right rectum. And decided to come in. Patient's been having lower abdominal discomfort. She was admitted to the ER. Patient normally does use a walker. Lives alone. Colonoscopy done on September 07 shows ascending colon mass and AV malformation was some slight bleeding. 09/09/2019-. The patient does morning. Laying in bed. Tired. Pending surgery tomorrow. No new issues. 09/10/2019 Patient is currently mechanically ventilated. Status post 3 today.PROCEDURES PERFORMED: 1. Exploratory laparotomy with lysis of adhesions over 2-1/2 to 3 hours 2. Extensive right hemicolectomy 3. Resection of transverse mesocolon tumor, 4 cm 4. Takedown of internal hernia pelvis 5. Small bowel resection distal jejunum to ileum, over 2 feet 6. Repair of incisional hernia, mid abdomen, 5-cm 7. Placement of round #19 drain left lower quadrant 8. Placement of incisional wound VAC system PREVENA, 20 cm Complete review of systems could not be obtained from the patient. Objective - Vital Signs Vital signs: Vital Signs Temp 98.6 F 09/10/19 20:00 Pulse 72 09/10/19 22:30 Resp 18 09/10/19 22:30 BP 125/49 09/10/19 22:15 Pulse Ox 97 09/10/19 22:30 Intake & Output 09/10/19 09/10/19 09/11/19 06:59 18:59 06:59 Intake Total 900 3350 85.555 Output Total 600 240 Balance 900 2750 -154.445 Weight 81.7 kg 81.7 kg Intake: IV 2750 60 LR @20ml/hr 60 Intake, IV Titration 900 600 25.555 Amount Norepinephrine 8 mg In 18.365 Sodium Chloride 0.9% 250 ml @ 0.05 MCG/KG/MIN 7. 904 mls/hr IV .Q24H IRENE Rx#:[id number] Propofol 1,000 mg In 7.19 Empty Bag 1 bag @ Titrate IV .Q0M IRENE Rx#: [id number] Sodium Chloride 0.9% 1, 900 600 000 ml @ 100 mls/hr IV . Q10H IRENE Rx#:[id number] Output: Drainage 170 Left Lower Abdomen 170 Urine 300 70 Estimated Blood Loss 300 Other: Voiding Method Bedside Commode Indwelling Catheter # Voids 1 # Bowel Movements 1 ABP, PAP, CO, CI - Last Documented Arterial Blood Pressure 103/41 - Exam PHYSICAL EXAMINATION: Patient is currently on mechanical ventilator.. HEENT: Normocephalic. Neck is supple. Pupils reactive. Nostrils clear. Oral cavity is moist. Ears reveal no drainage. Neck reveals no JVD, carotid bruits, or thyromegaly. CHEST EXAMINATION: Trachea is central. Symmetrical expansion. Bibasilar diminished air entry.. CARDIAC: Normal S1, S2 with no gallops. No murmurs ABDOMEN: Soft. Bowel sounds diminished. Surgical site is bandaged. Wound VAC in place.. Extremities: reveal no edema. No clubbing or cyanosis Neurologically sedated and on mechanical ventilator. Skin: No rash or skin lesions. Psychiatric: Could not be assessed Musculoskeletal: No joint swelling or deformity. INVESTIGATIONS, reviewed in the clinical context: White count 8.4 hemoglobin 8.2 platelets 232 progression bun 59 creatinine 1.7 Previous testing White count 8.6 hemoglobin 8.2 platelets 242 progression 4.2 bun 45 creatinine 1.57 Previous testing White count 9.6 hemoglobin 9.2 platelets 240 progression 4.7 BUN 73 creatinine 1.79 Computed tomography scan of the abdomen-results noted as above - Labs CBC & Chem 7: 09/10/19 20:05 09/10/19 20:05 Labs: Abnormal Lab Results - Last 24 Hours (Table) 09/10/19 09/10/19 09/10/19 Range/Units 07:18 11:36 18:47 WBC (3.8-10.6) k/uL RBC (3.80-5.40) m/uL Hgb (11.4-16.0) gm/dL Hct (34.0-46.0) % MCHC (31.0-37.0) g/dL RDW (11.5-15.5) % Neutrophils # (1.3-7.7) k/uL ABG pH (7.35-7.45) ABG pO2 (83-108) mmHg ABG HCO3 (21-25) mmol/L ABG O2 Saturation (94-97) % Chloride (98-107) mmol/L Carbon Dioxide (22-30) mmol/L BUN (7-17) mg/dL Creatinine (0.52-1.04) mg/dL Glucose (74-99) mg/dL POC Glucose (mg/dL) 144 H 152 H 130 H (75-99) mg/dL Phosphorus (2.5-4.5) mg/dL Alkaline Phosphatase (38-126) U/L Total Protein (6.3-8.2) g/dL Albumin (3.5-5.0) g/dL Urine Appearance (Clear) Urine Protein (Negative) Urine Blood (Negative) Ur Leukocyte Esterase (Negative) Urine RBC (0-5) /hpf Urine WBC (0-5) /hpf Urine WBC Clumps (None) /hpf Urine Bacteria (None) /hpf Hyaline Casts (0-2) /lpf Urine Mucus (None) /hpf 09/10/19 09/10/19 09/10/19 Range/Units 19:18 20:05 20:05 WBC 16.9 H (3.8-10.6) k/uL RBC 3.05 L (3.80-5.40) m/uL Hgb 9.1 L (11.4-16.0) gm/dL Hct 29.6 L (34.0-46.0) % MCHC 30.8 L (31.0-37.0) g/dL RDW 18.3 H (11.5-15.5) % Neutrophils # 14.9 H (1.3-7.7) k/uL ABG pH 7.31 L (7.35-7.45) ABG pO2 324 H (83-108) mmHg ABG HCO3 18 L (21-25) mmol/L ABG O2 Saturation 100.0 H (94-97) % Chloride 115 H (98-107) mmol/L Carbon Dioxide 19 L (22-30) mmol/L BUN 35 H (7-17) mg/dL Creatinine 1.57 H (0.52-1.04) mg/dL Glucose 144 H (74-99) mg/dL POC Glucose (mg/dL) (75-99) mg/dL Phosphorus 4.9 H (2.5-4.5) mg/dL Alkaline Phosphatase 133 H (38-126) U/L Total Protein 4.4 L (6.3-8.2) g/dL Albumin 2.4 L (3.5-5.0) g/dL Urine Appearance (Clear) Urine Protein (Negative) Urine Blood (Negative) Ur Leukocyte Esterase (Negative) Urine RBC (0-5) /hpf Urine WBC (0-5) /hpf Urine WBC Clumps (None) /hpf Urine Bacteria (None) /hpf Hyaline Casts (0-2) /lpf Urine Mucus (None) /hpf 09/10/19 09/10/19 09/10/19 Range/Units 20:15 20:42 22:19 WBC (3.8-10.6) k/uL RBC (3.80-5.40) m/uL Hgb (11.4-16.0) gm/dL Hct (34.0-46.0) % MCHC (31.0-37.0) g/dL RDW (11.5-15.5) % Neutrophils # (1.3-7.7) k/uL ABG pH 7.31 L (7.35-7.45) ABG pO2 151 H (83-108) mmHg ABG HCO3 18 L (21-25) mmol/L ABG O2 Saturation 99.8 H (94-97) % Chloride (98-107) mmol/L Carbon Dioxide (22-30) mmol/L BUN (7-17) mg/dL Creatinine (0.52-1.04) mg/dL Glucose (74-99) mg/dL POC Glucose (mg/dL) 124 H (75-99) mg/dL Phosphorus (2.5-4.5) mg/dL Alkaline Phosphatase (38-126) U/L Total Protein (6.3-8.2) g/dL Albumin (3.5-5.0) g/dL Urine Appearance Cloudy H (Clear) Urine Protein 1+ H (Negative) Urine Blood Moderate H (Negative) Ur Leukocyte Esterase Large H (Negative) Urine RBC >182 H (0-5) /hpf Urine WBC 164 H (0-5) /hpf Urine WBC Clumps Occasional H (None) /hpf Urine Bacteria Rare H (None) /hpf Hyaline Casts 6 H (0-2) /lpf Urine Mucus Rare H (None) /hpf Assessment and Plan Assessment: -Ascending colon mass, per coloscopy, is post resection. Postoperative day 0. Follow-up biopsy report. -Postoperative ventilator-dependent respiratory failure expected. 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 Continue the pain management. Gen. surgery is following. Pulmonary is on board. Further recommendations based on the clinical course... Time with Patient: Greater than 30
[2019-09-11] MEDS: metroNIDAZOLE-NS PMX 500 MG in SALINE 1 100ML.BAG IVPB SCH ×3 (00:50→18:31)
[2019-09-11] MEDS: NOREPINEPHRINE 8 MG in SODIUM CHLORIDE 0.9% 250 ML IV SCH ×2 (00:52→19:59)
[2019-09-11] MEDS ORDERED: FUROSEMIDE 10 MG/ML 10 ML VIAL IV STA (01:50)
[2019-09-11 04:39] LABS: Calcium 8.6 mg/dL (8.4-10.2); Magnesium 1.9 mg/dL (1.6-2.3); Phosphorus 5.6 mg/dL (2.5-4.5); Potassium 4.8 mmol/L (3.5-5.1)
[2019-09-11 04:45] LABS: Anisocytosis Slight; HCT 31.7 % (34.0-46.0); HGB 9.6 gm/dL (11.4-16.0); Hypochromasia Marked; MCH 29.6 pg (25.0-35.0); MCHC 30.2 g/dL (31.0-37.0); MCV 97.8 fL (80.0-100.0); Macrocytosis Slight; Mean Platelet Volume 10.4; Platelet Count 305 k/uL (150-450); Poikilocytosis Moderate; RBC 3.25 m/uL (3.80-5.40); RDW 18.4 % (11.5-15.5); WBC 25.8 k/uL (3.8-10.6)
[2019-09-11 05:08] LABS: Lymphocytes # (M) 1.81 k/uL (1.0-4.8); Monocytes # (M) 1.03 k/uL (0-1.0); Neutrophils # (M) 22.96 k/uL (1.3-7.7); Neutrophils % (M) 89 %; Nucleated Red Blood Cells 0 /100 WBC (0-0); Polychromasia Present; Total Cells Counted 100
[2019-09-11 05:09] LABS: Large Platelets Present
[2019-09-11] MEDS ORDERED: Magnesium Replacement Protocol 1 EACH MISC MISCELLANE PRN (05:39)
[2019-09-11] MEDS: INSULIN ASPART (NovoLOG) 100 UNIT/ML VIAL SQ SCH ×3 (06:26→19:14)
[2019-09-11] MEDS: CARVEDILOL 3.125 MG TAB PO SCH (06:28)
[2019-09-11] MEDS: LEVOTHYROXINE 75 MCG TAB PO SCH (06:28)
[2019-09-11] MEDS: MAGNESIUM SULFATE-D5W PMX 1 GM in DEXTROSE/WATER 1 100ML.BAG IVPB SCH ×2 (06:33→08:29)
[2019-09-11 06:35] LABS: Glucose,Whole Blood 81 mg/dL (75-99)
--- NOTE | 2019-09-11 06:48 | XR ---
EXAMINATION TYPE: XR chest 1V portable DATE OF EXAM: 09/11/2019 HISTORY: Tube placement. REFERENCE: Previous study dated 09/10/2019. FINDINGS: There has been a midline sternotomy. There is a bipolar pacemaker place on the left. The patient is ET tube and NG tube remain in place, unchanged in appearance. There is bibasilar airspace disease. This has increased. There are small, bilateral effusions. These are also increased. Heart is mildly enlarged. IMPRESSION: 1. WORSENING BIBASILAR AIRSPACE DISEASE. 2. SMALL, BILATERAL EFFUSIONS. 3. MILD CARDIOMEGALY.
[2019-09-11] MEDS: INSULIN DETEMIR (LEVEMIR) 100 UNIT/ML SYR SQ SCH (07:29)
--- NOTE | 2019-09-11 07:56 | P.PN ---
Progress Note - Text Progress Note Date: 09/11/19 Patient intubated and sedated. Hypotensive based on arterial line, but better pressures with BP cuff. Epidural @ 6 ml/hr Epidural site clean and dry A/P POD#1 s/p ex lap with R hemicolectomy - decreased epidural to 4 ml/hr - may turn off is hypotension continues and no plan to wean today
[2019-09-11 08:02] LABS: ABG Base Excess -9.6 mmol/L; ABG HCO3 17 mmol/L (21-25); ABG Oxygen Saturation 96.6 % (94-97); ABG PCO2 36 mmHg (35-45); ABG PH 7.29 (7.35-7.45); ABG PO2 87 mmHg (83-108); ABG TCO2 18 mmol/L (19-24); Allen Test Performed? Yes
[2019-09-11] MEDS: ALLOPURINOL 100 MG TAB PO SCH ×2 (08:25→20:50)
[2019-09-11] MEDS: SPIRONOLACTONE 25 MG TAB PO SCH (08:26)
[2019-09-11] MEDS: SODIUM BICARBONATE TAB 650 MG TAB PO SCH ×2 (08:26→20:50)
[2019-09-11] MEDS: FUROSEMIDE 80 MG TAB PO SCH (08:26)
[2019-09-11] MEDS: POTASSIUM CHLORIDE ER 10 MEQ TAB.ER.PRT PO SCH (08:26)
[2019-09-11] MEDS: PANTOPRAZOLE 40 MG/10 ML VIAL IV SCH (08:29)
[2019-09-11] MEDS: CHLORHEXIDINE GLUCONATE 15 ML CUP MUCOUS MEM SCH ×2 (08:29→20:50)
[2019-09-11] MEDS: FUROSEMIDE 100 MG in SODIUM CHLORIDE 0.9% 90 ML IV SCH ×2 (10:51→19:13)
[2019-09-11] MEDS: DEXTROSE 5% IN WATER 1,000 ML with SODIUM BICARB (1 MEQ/ML) 150 ML IV SCH (10:57)
--- NOTE | 2019-09-11 10:57 | XR ---
EXAMINATION TYPE: XR chest 1V portable DATE OF EXAM: 09/11/2019 HISTORY: rt ij central line placement. REFERENCE: Previous study dated 09/11/2019. FINDINGS: The patient is ET tube and NG tube remain in place, unchanged in appearance. A right tax intern al jugular catheter has been placed. Its tip is in the superior vena cava. There has been a midline sternotomy. There is a bipolar pacemaker place on the left. The heart is mildly enlarged. There is bibasilar airspace disease and small, bilateral effusions. No pneumothorax is identified. IMPRESSION: SATISFACTORY CENTRAL LINE PLACEMENT.
--- NOTE | 2019-09-11 11:24 | P.CNPUL ---
History of Present Illness Consult date: 09/11/19 Requesting physician: Rob Sam Reason for consult: other (Operative respiratory failure and hypotension.) Chief complaint: Stools suggestive of GI bleeding. History of present illness: This is an 89-year-old female who was recently evaluated for GI bleeding, and abdominal imaging showed a large right lower quadrant mass, 2 adjacent peritoneal deposits. 2 cm lesion in the left lobe of the liver, mild ascites, and another questionable peritoneal deposit. She had anemia with hemoglobin of 8.1, she also had chronic renal failure with a creatinine of 1.79, stage III. Patient has also been complaining of weight loss over the last 2-3 months roughly about 60 pounds. Patient is also known to have history of colonic polyps, and she had previous bowel resection/to previous surgeries. Had multiple colonoscopies. Last colonoscopy was in [place] about 5 years ago. Seen by surgery on consultation, and it was felt that the patient required surgical intervention for rectal bleeding secondary to invading mass. She is known to have history of diastolic congestive heart failure and known history of deep vein thrombosis. And she also had pre-existing anemia. 2 days after admission, patient underwent colonoscopy, and snare polypectomy/ascending colon mass, and she had injection of dye marker/zack ink./ascending colon mass. Descending colon biopsies showed tubulovillous adenoma. On 09/10/2019, patient underwent exploratory laparotomy with lysis of adhesions extensive right he micolectomy resection of transverse colon tumor/4 cm taken down of internal hernia pelvis, small bowel resection distal jejunum to ileum, over 2 feet repair of incisional hernia and placement of incisional wound VAC system. Postoperatively, patient was sent to the intensive care unit on mechanical ventilation. Last night, the patient had episodes of hypotension requiring fluid boluses and placement of norepinephrine. She is presently on 0.2 mcg/kg/m of norepinephrine. She is on mechanical ventilation with tidal volume of 450 FiO2 of 45% PEEP of 5 assist control rate of 18. Right IJ central line was placed because of the patient is requiring pressors for hypotension. She is noted to be acidotic with a bicarb of 18 and pH of 7.29, hence I initiated sodium bicarb drip on this patient. Renal functioning is poor, creatinine today is 1.73, admission creatinine was 1.79. Patient is known to have history of diastolic congestive heart failure, and aortic stenosis. Patient is on 15 mcg/ kg/m the propofol, calm and sedated. Her urine output is extremely poor, hence I recommended Lasix drip on this patient. And based on the CVP findings after line placement, we'll decide on fluid boluses if necessary. Review of Systems ROS unobtainable: due to endotracheal tube Past Medical History Past Medical History: Atrial Fibrillation, Coronary Artery Disease (CAD), Cancer, Heart Failure, Diabetes Mellitus, GI Bleed, Hypertension, Osteoarthritis (OA), Pneumonia, Pulmonary Embolus (PE), Sleep Apnea/CPAP/BIPAP, Thyroid Disorder Additional Past Medical History / Comment(s): gout, chronic pain in back hip and leg, diverticulitis, LT EYE BLIND,GLAUCOMA, MAC DEGENERATION RT EYE, MURMUR, DIVERTICULAR DX.OVARIAN CYSTS,SKIN CA,ANEMIA, TRACHEBRONCHITIS WITH REACTIVE BRONCHOSPASM.used to use cpap machine . Increased shortness of breath with activity and at rest. ARACELI CARPAL TUNNEL. abd cncer History of Any Multi-Drug Resistant Organisms: None Reported Past Surgical History: Appendectomy, Bowel Resection, Breast Surgery, Cardiac Valve Replacement, Cholecystectomy, Coronary Bypass/CABG, Heart Catheterization, Hysterectomy, Orthopedic Surgery, Pacemaker, Tonsillectomy Additional Past Surgical History / Comment(s): pacemaker, AORTIC VALVE REPLACEMENT(TISSUE) AND 1 VESSEL BYPASS, CYST REMOVED FROM HAND/HEAD,BOWEL RESECTION D/T DIVERTICULITIS.KRISTYN FILTER, COLONOCOSPY/POLYPECTOMY/EGD, PAST LT EYE SX-DAMAGED THE OPTIC NERVE-BLIND LT EYE.lt knee arthrosopy, skin cancer removed from hand/head/back Past Anesthesia/Blood Transfusion Reactions: No Reported Reaction Type of Cardiac Device: Permanent Pacemaker Device Placement Date:: 2010 Past Psychological History: Depression Additional Psychological History / Comment(s): history of depression, denies now Smoking Status: Former smoker Past Alcohol Use History: None Reported Additional Past Alcohol Use History / Comment(s): STARTED SMOKING 1979 1-2 ppd, quit 2001, no alcohol now Past Drug Use History: None Reported - Past Family History Brother(s) History Unknown: Yes Father Family Medical History: Cancer Additional Family Medical History / Comment(s): ALCOHOLIC-- 1969 Mother Family Medical History: Cancer, Coronary Artery Disease (CAD), Dementia, Diabetes Mellitus Additional Family Medical History / Comment(s): 1984 Medications and Allergies Home Medications Medication Instructions Recorded Confirmed Type Carvedilol [Coreg] 3.125 mg PO BID 03/25/14 09/05/19 History Allopurinol 100 mg PO BID 03/07/15 09/05/19 History Levothyroxine Sodium [Synthroid] 75 mcg PO DAILY 11/03/17 09/05/19 History Insulin Lispro [humaLOG Kwikpen] 5 unit SQ AC-BID 12/29/17 09/05/19 History Furosemide [Lasix] 80 mg PO BID 05/21/19 09/05/19 History Insulin Detemir (Levemir) [Levemir] 20 unit SQ AC-BRKFST 05/21/19 09/05/19 History Potassium Chloride ER [K-Dur 10] 10 meq PO BID 05/21/19 09/05/19 History Spironolactone [Aldactone] 25 mg PO BID 05/21/19 09/05/19 History Meclizine HCl 12.5 mg PO TID PRN 09/05/19 09/05/19 History Naproxen Sodium [Aleve] 440 mg PO Q12HR PRN 09/05/19 09/05/19 History Sodium Bicarbonate Tab 650 mg PO BID 09/05/19 09/05/19 History Allergies Allergy/AdvReac Type Severity Reaction Status Date / Time aspirin Allergy Unknown Verified 09/05/19 16:01 bee pollen [Bee Pollen] Allergy Anaphylaxis Verified 09/05/19 16:01 celecoxib [From Celebrex] Allergy Unknown Verified 09/05/19 16:01 blood thinners AdvReac Severe see comment Uncoded 09/05/19 13:51 URIC ACIDS AdvReac GOUT Uncoded 09/05/19 13:51 Physical Exam Vitals: Vital Signs Temp Pulse Pulse Pulse Resp BP BP 09/11/19 08:00 99.3 F 73 21 09/11/19 07:45 73 18 09/11/19 07:30 70 21 09/11/19 07:15 74 14 09/11/19 07:00 72 18 118/41 09/11/19 06:45 73 18 09/11/19 06:30 72 19 09/11/19 06:15 68 69 H 09/11/19 06:00 71 21 119/43 09/11/19 05:45 70 09/11/19 05:30 70 09/11/19 05:15 74 119/43 09/11/19 05:00 70 18 09/11/19 04:45 75 09/11/19 04:30 72 18 09/11/19 04:15 75 17 09/11/19 04:00 98.6 F 75 82 79 18 129/49 09/11/19 03:45 75 09/11/19 03:30 71 09/11/19 03:15 71 09/11/19 03:00 74 143/60 09/11/19 02:45 75 09/11/19 02:30 75 09/11/19 02:15 72 09/11/19 02:00 70 18 120/44 09/11/19 01:45 87 09/11/19 01:30 69 09/11/19 01:15 72 120/44 09/11/19 01:00 72 18 09/11/19 00:45 74 09/11/19 00:30 75 09/11/19 00:15 73 121/46 09/11/19 00:00 98.7 F 73 82 79 18 122/50 09/10/19 23:45 74 18 09/10/19 23:30 71 09/10/19 23:15 79 09/10/19 23:00 73 09/10/19 22:45 73 111/47 09/10/19 22:30 72 18 09/10/19 22:15 75 18 125/49 09/10/19 22:00 74 18 09/10/19 21:45 73 122/60 09/10/19 21:30 69 73/36 09/10/19 21:15 68 91/45 09/10/19 21:00 64 18 95/44 09/10/19 20:45 64 101/47 09/10/19 20:30 65 09/10/19 20:15 64 18 100/47 09/10/19 20:00 98.6 F 75 82 79 18 96/50 09/10/19 19:45 66 18 09/10/19 19:30 65 18 09/10/19 19:15 65 18 09/10/19 19:00 65 09/10/19 13:12 97.2 F L 79 17 136/79 Pulse Ox 09/11/19 08:00 96 09/11/19 07:45 96 09/11/19 07:30 96 09/11/19 07:15 96 09/11/19 07:00 09/11/19 06:45 96 09/11/19 06:30 96 09/11/19 06:15 96 09/11/19 06:00 96 09/11/19 05:45 97 09/11/19 05:30 96 09/11/19 05:15 96 09/11/19 05:00 97 09/11/19 04:45 98 09/11/19 04:30 96 09/11/19 04:15 95 09/11/19 04:00 97 09/11/19 03:45 96 09/11/19 03:30 97 09/11/19 03:15 97 09/11/19 03:00 09/11/19 02:45 97 09/11/19 02:30 97 09/11/19 02:15 96 09/11/19 02:00 97 09/11/19 01:45 09/11/19 01:30 95 09/11/19 01:15 95 09/11/19 01:00 09/11/19 00:45 95 09/11/19 00:30 95 09/11/19 00:15 96 09/11/19 00:00 95 09/10/19 23:45 95 09/10/19 23:30 94 L 09/10/19 23:15 96 09/10/19 23:00 97 09/10/19 22:45 97 09/10/19 22:30 97 09/10/19 22:15 98 09/10/19 22:00 97 09/10/19 21:45 97 09/10/19 21:30 97 09/10/19 21:15 97 09/10/19 21:00 99 09/10/19 20:45 100 09/10/19 20:30 100 09/10/19 20:15 99 09/10/19 20:00 99 09/10/19 19:45 95 09/10/19 19:30 91 L 09/10/19 19:15 09/10/19 19:00 88 L 09/10/19 13:12 99 Intake and Output 09/10/19 09/11/19 09/11/19 22:59 06:59 14:59 Intake Total 1098.982 9776.172 40 Output Total 840 370 35 Balance 044.557 0619.172 5 Intake: IV 1060 1160 40 Bolus Normal Saline 1000 LR @20ml/hr 60 160 40 Intake, IV Titration 25.555 240.172 Amount Norepinephrine 8 mg In 18.365 140.172 Sodium Chloride 0.9% 250 ml @ 0.05 MCG/KG/MIN 7. 904 mls/hr IV .Q24H IRENE Rx#:[id number] Propofol 1,000 mg In 7.19 Empty Bag 1 bag @ Titrate IV .Q0M IRENE Rx#: [id number] metroNIDAZOLE-NS PMX 500 100 mg In Saline 1 100ml.bag @ 100 mls/hr IVPB Q8HR IRENE Rx#:[id number] Output: Drainage 170 180 Left Lower Abdomen 170 180 Urine 370 190 35 Estimated Blood Loss 300 Other: Voiding Method Indwelling Catheter Indwelling Catheter Indwelling Catheter Weight 85.8 kg ABP, PAP, CO, CI - Last 8 Hours Arterial Blood Pressure 93/58 Arterial Blood Pressure 94/37 Arterial Blood Pressure 94/36 Arterial Blood Pressure 95/38 Arterial Blood Pressure 104/42 Arterial Blood Pressure 106/41 Arterial Blood Pressure 94/38 Arterial Blood Pressure 92/36 Arterial Blood Pressure 104/46 Arterial Blood Pressure 103/39 Arterial Blood Pressure 105/39 Arterial Blood Pressure 108/45 Arterial Blood Pressure 107/41 Arterial Blood Pressure 105/42 Arterial Blood Pressure 100/40 Arterial Blood Pressure 108/41 Arterial Blood Pressure 113/41 Arterial Blood Pressure 144/51 Arterial Blood Pressure 101/38 Arterial Blood Pressure 108/40 Arterial Blood Pressure 132/46 Physical Exam: Revealed a 89-year-old female in no distress. On mechanical ventilation, intubated, sedated, on propofol, and on norepinephrine. Head: Atraumatic, normocephalic. Endotracheal tube and nasogastric tube are intact. HEENT:[Neck is supple.] [No neck masses.] [No thyromegaly.] [No JVD.] PERRLA, EOMI, no icterus. Chest: [Symmetrical chest expansion, minimal crackles at the bases, no rhonchi no wheezes. Cardiac Exam: [Normal S1 and S2, no S3 gallop, 2/6 systolic murmur over the aortic area. Abdomen: [Postsurgical, wound VAC is noted. Soft, nontender, no megaly, no rebound, no guarding, negative bowel sounds. Drains noted. Extremities: [No clubbing, no edema, no cyanosis.] Neurological Exam: Cannot be assessed, patient is sedated, on propofol. Psychiatric: Cannot be assessed. Skin: No rashes. Lymphatics: No lymphadenopathy. Results - Laboratory Findings CBC and BMP: 09/11/19 04:10 09/11/19 04:10 ABG ABG pH 7.29 (7.35-7.45) L 09/11/19 07:56 ABG pCO2 36 mmHg (35-45) 09/11/19 07:56 ABG pO2 87 mmHg (83-108) 09/11/19 07:56 ABG O2 Saturation 96.6 % (94-97) 09/11/19 07:56 PT/INR, D-dimer PT 10.4 sec (9.0-12.0) 09/05/19 14:13 INR 1.0 (<1.2) 09/05/19 14:13 Abnormal lab findings: Abnormal Labs 09/05/19 09/05/19 09/05/19 14:13 14:13 20:38 WBC RBC 3.07 L Hgb 9.2 L Hct 29.1 L MCHC RDW 15.9 H Neutrophils # Neutrophils # (Manual) Monocytes # (Manual) ABG pH ABG pO2 ABG HCO3 ABG Total CO2 ABG O2 Saturation Chloride 109 H Carbon Dioxide 19 L BUN 73 H Creatinine 1.79 H Glucose 214 H POC Glucose (mg/dL) 132 H Phosphorus Iron % Saturation Total Bilirubin Alkaline Phosphatase 193 H Total Protein 6.0 L Albumin Carcinoembryonic Ag CA 125 Antigen Vitamin B12 RBC Folate Urine Appearance Urine Protein Urine Blood Ur Leukocyte Esterase Urine RBC Urine WBC Urine WBC Clumps Urine Bacteria Hyaline Casts Urine Mucus 09/06/19 09/06/19 09/06/19 06:59 07:44 07:44 WBC RBC 2.65 L Hgb 8.1 L Hct 25.0 L MCHC RDW 15.6 H Neutrophils # Neutrophils # (Manual) Monocytes # (Manual) ABG pH ABG pO2 ABG HCO3 ABG Total CO2 ABG O2 Saturation Chloride Carbon Dioxide BUN Creatinine Glucose POC Glucose (mg/dL) 156 H Phosphorus Iron % Saturation Total Bilirubin Alkaline Phosphatase Total Protein Albumin Carcinoembryonic Ag 299.2 H CA 125 Antigen Vitamin B12 RBC Folate Urine Appearance Urine Protein Urine Blood Ur Leukocyte Esterase Urine RBC Urine WBC Urine WBC Clumps Urine Bacteria Hyaline Casts Urine Mucus 09/06/19 09/06/19 09/06/19 07:44 07:44 11:25 WBC RBC Hgb Hct MCHC RDW Neutrophils # Neutrophils # (Manual) Monocytes # (Manual) ABG pH ABG pO2 ABG HCO3 ABG Total CO2 ABG O2 Saturation Chloride Carbon Dioxide BUN Creatinine Glucose POC Glucose (mg/dL) 276 H Phosphorus Iron 17 L % Saturation 5.06 L Total Bilirubin Alkaline Phosphatase Total Protein Albumin Carcinoembryonic Ag CA 125 Antigen 256.0 H Vitamin B12 3270.0 H RBC Folate 1,365 H Urine Appearance Urine Protein Urine Blood Ur Leukocyte Esterase Urine RBC Urine WBC Urine WBC Clumps Urine Bacteria Hyaline Casts Urine Mucus 09/06/19 09/06/19 09/06/19 14:20 17:13 20:20 WBC RBC Hgb Hct MCHC RDW Neutrophils # Neutrophils # (Manual) Monocytes # (Manual) ABG pH ABG pO2 ABG HCO3 ABG Total CO2 ABG O2 Saturation Chloride Carbon Dioxide BUN Creatinine Glucose POC Glucose (mg/dL) 303 H 134 H 104 H Phosphorus Iron % Saturation Total Bilirubin Alkaline Phosphatase Total Protein Albumin Carcinoembryonic Ag CA 125 Antigen Vitamin B12 RBC Folate Urine Appearance Urine Protein Urine Blood Ur Leukocyte Esterase Urine RBC Urine WBC Urine WBC Clumps Urine Bacteria Hyaline Casts Urine Mucus 09/07/19 09/07/19 09/07/19 07:05 08:40 08:40 WBC RBC 2.75 L Hgb 8.2 L Hct 25.6 L MCHC RDW 15.7 H Neutrophils # Neutrophils # (Manual) Monocytes # (Manual) ABG pH ABG pO2 ABG HCO3 ABG Total CO2 ABG O2 Saturation Chloride 109 H Carbon Dioxide BUN 59 H Creatinine 1.70 H Glucose 109 H POC Glucose (mg/dL) 128 H Phosphorus Iron % Saturation Total Bilirubin 1.4 H Alkaline Phosphatase 159 H Total Protein 5.7 L Albumin 3.2 L Carcinoembryonic Ag CA 125 Antigen Vitamin B12 RBC Folate Urine Appearance Urine Protein Urine Blood Ur Leukocyte Esterase Urine RBC Urine WBC Urine WBC Clumps Urine Bacteria Hyaline Casts Urine Mucus 09/07/19 09/07/19 09/07/19 11:08 17:08 20:19 WBC RBC Hgb Hct MCHC RDW Neutrophils # Neutrophils # (Manual) Monocytes # (Manual) ABG pH ABG pO2 ABG HCO3 ABG Total CO2 ABG O2 Saturation Chloride Carbon Dioxide BUN Creatinine Glucose POC Glucose (mg/dL) 148 H 151 H 272 H Phosphorus Iron % Saturation Total Bilirubin Alkaline Phosphatase Total Protein Albumin Carcinoembryonic Ag CA 125 Antigen Vitamin B12 RBC Folate Urine Appearance Urine Protein Urine Blood Ur Leukocyte Esterase Urine RBC Urine WBC Urine WBC Clumps Urine Bacteria Hyaline Casts Urine Mucus 09/08/19 09/08/19 09/08/19 09:13 09:13 11:34 WBC RBC 2.67 L Hgb 8.2 L Hct 25.1 L MCHC RDW 16.1 H Neutrophils # Neutrophils # (Manual) Monocytes # (Manual) ABG pH ABG pO2 ABG HCO3 ABG Total CO2 ABG O2 Saturation Chloride 108 H Carbon Dioxide 21 L BUN 45 H Creatinine 1.57 H Glucose 145 H POC Glucose (mg/dL) 147 H Phosphorus Iron % Saturation Total Bilirubin 1.4 H Alkaline Phosphatase 149 H Total Protein 5.5 L Albumin 3.1 L Carcinoembryonic Ag CA 125 Antigen Vitamin B12 RBC Folate Urine Appearance Urine Protein Urine Blood Ur Leukocyte Esterase Urine RBC Urine WBC Urine WBC Clumps Urine Bacteria Hyaline Casts Urine Mucus 09/08/19 09/08/19 09/09/19 16:52 21:32 06:58 WBC RBC Hgb Hct MCHC RDW Neutrophils # Neutrophils # (Manual) Monocytes # (Manual) ABG pH ABG pO2 ABG HCO3 ABG Total CO2 ABG O2 Saturation Chloride Carbon Dioxide BUN Creatinine Glucose POC Glucose (mg/dL) 137 H 176 H 152 H Phosphorus Iron % Saturation Total Bilirubin Alkaline Phosphatase Total Protein Albumin Carcinoembryonic Ag CA 125 Antigen Vitamin B12 RBC Folate Urine Appearance Urine Protein Urine Blood Ur Leukocyte Esterase Urine RBC Urine WBC Urine WBC Clumps Urine Bacteria Hyaline Casts Urine Mucus 09/09/19 09/09/19 09/09/19 11:12 16:53 20:02 WBC RBC Hgb Hct MCHC RDW Neutrophils # Neutrophils # (Manual) Monocytes # (Manual) ABG pH ABG pO2 ABG HCO3 ABG Total CO2 ABG O2 Saturation Chloride Carbon Dioxide BUN Creatinine Glucose POC Glucose (mg/dL) 189 H 161 H 216 H Phosphorus Iron % Saturation Total Bilirubin Alkaline Phosphatase Total Protein Albumin Carcinoembryonic Ag CA 125 Antigen Vitamin B12 RBC Folate Urine Appearance Urine Protein Urine Blood Ur Leukocyte Esterase Urine RBC Urine WBC Urine WBC Clumps Urine Bacteria Hyaline Casts Urine Mucus 09/10/19 09/10/19 09/10/19 07:18 11:36 18:47 WBC RBC Hgb Hct MCHC RDW Neutrophils # Neutrophils # (Manual) Monocytes # (Manual) ABG pH ABG pO2 ABG HCO3 ABG Total CO2 ABG O2 Saturation Chloride Carbon Dioxide BUN Creatinine Glucose POC Glucose (mg/dL) 144 H 152 H 130 H Phosphorus Iron % Saturation Total Bilirubin Alkaline Phosphatase Total Protein Albumin Carcinoembryonic Ag CA 125 Antigen Vitamin B12 RBC Folate Urine Appearance Urine Protein Urine Blood Ur Leukocyte Esterase Urine RBC Urine WBC Urine WBC Clumps Urine Bacteria Hyaline Casts Urine Mucus 09/10/19 09/10/19 09/10/19 19:18 20:05 20:05 WBC 16.9 H RBC 3.05 L Hgb 9.1 L Hct 29.6 L MCHC 30.8 L RDW 18.3 H Neutrophils # 14.9 H Neutrophils # (Manual) Monocytes # (Manual) ABG pH 7.31 L ABG pO2 324 H ABG HCO3 18 L ABG Total CO2 ABG O2 Saturation 100.0 H Chloride 115 H Carbon Dioxide 19 L BUN 35 H Creatinine 1.57 H Glucose 144 H POC Glucose (mg/dL) Phosphorus 4.9 H Iron % Saturation Total Bilirubin Alkaline Phosphatase 133 H Total Protein 4.4 L Albumin 2.4 L Carcinoembryonic Ag CA 125 Antigen Vitamin B12 RBC Folate Urine Appearance Urine Protein Urine Blood Ur Leukocyte Esterase Urine RBC Urine WBC Urine WBC Clumps Urine Bacteria Hyaline Casts Urine Mucus 09/10/19 09/10/19 09/10/19 20:15 20:42 22:19 WBC RBC Hgb Hct MCHC RDW Neutrophils # Neutrophils # (Manual) Monocytes # (Manual) ABG pH 7.31 L ABG pO2 151 H ABG HCO3 18 L ABG Total CO2 ABG O2 Saturation 99.8 H Chloride Carbon Dioxide BUN Creatinine Glucose POC Glucose (mg/dL) 124 H Phosphorus Iron % Saturation Total Bilirubin Alkaline Phosphatase Total Protein Albumin Carcinoembryonic Ag CA 125 Antigen Vitamin B12 RBC Folate Urine Appearance Cloudy H Urine Protein 1+ H Urine Blood Moderate H Ur Leukocyte Esterase Large H Urine RBC >182 H Urine WBC 164 H Urine WBC Clumps Occasional H Urine Bacteria Rare H Hyaline Casts 6 H Urine Mucus Rare H 12/05/2309/11/19 09/11/19 04:10 04:10 07:56 WBC 25.8 H RBC 3.25 L Hgb 9.6 L Hct 31.7 L MCHC 30.2 L RDW 18.4 H Neutrophils # Neutrophils # (Manual) 22.96 H Monocytes # (Manual) 1.03 H ABG pH 7.29 L ABG pO2 ABG HCO3 17 L ABG Total CO2 18 L ABG O2 Saturation Chloride 116 H Carbon Dioxide 16 L BUN 34 H Creatinine 1.73 H Glucose 140 H POC Glucose (mg/dL) Phosphorus 5.6 H Iron % Saturation Total Bilirubin Alkaline Phosphatase Total Protein Albumin Carcinoembryonic Ag CA 125 Antigen Vitamin B12 RBC Folate Urine Appearance Urine Protein Urine Blood Ur Leukocyte Esterase Urine RBC Urine WBC Urine WBC Clumps Urine Bacteria Hyaline Casts Urine Mucus - Diagnostic Findings Chest x-ray: image reviewed (Chest x-ray this morning showed cardiomegaly, bibasilar airspace disease, possible interstitial edema small bilateral effusions,) Assessment and Plan Assessment: Impression: 1 status post Exploratory laparotomy with lysis of adhesions over 2-1/2 to 3 hours, postoperative day #1. Patient has postoperative hypoxic respiratory failure, expected considering her multiple medical problems and her significant cardiac history. I believe there is a component of diastolic congestive heart failure and possibly some component of heart failure secondary to aortic valve disease. Patient is known to have history of severe aortic stenosis. 2. Extensive right hemicolectomy 3. Resection of transverse mesocolon tumor, 4 cm 4. Takedown of internal hernia pelvis 5. Small bowel resection distal jejunum to ileum, over 2 feet 6. Repair of incisional hernia, mid abdomen, 5-cm 7. Placement of round #19 drain left lower quadrant 8. Placement of incisional wound VAC system PREVENA, 20 cm 9 Ascending colon mass with rectal bleeding 10 Chronic iron deficiency anemia 11 Congestive heart failure, diastolic, moderate 12.History of colon resection 13 history of Ischemic cardiomyopathy 14. 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 Continue antibiotics. Continue GI and DVT prophylaxis. Continue close monitoring of sugars and insulin as per protocol. May even consider insulin drip. Continue sodium bicarb drip for now. Close assessment of fluid status, and monitor CVP. Consider TPN in the next 24 hours. Daily assessment of chest x-ray and labs including electrolytes, CBC, and renal profile. At present, the patient is not ready for any form of weaning, her overall pulmonary status and cardiac status is marginal at best. We'll continue to follow with the different consultants on this case. Overall prognosis is definitely guarded. Time with Patient: Greater than 30
[2019-09-11 11:46] LABS: Glucose,Whole Blood 139 mg/dL (75-99)
[2019-09-11] MEDS: PROPOFOL 1,000 MG in EMPTY BAG 1 BAG IV SCH ×2 (12:00→22:50)
--- NOTE | 2019-09-11 12:56 | P.PN ---
Subjective Progress Note Date: 09/11/19 CHIEF COMPLAINT: Large colon mass with bleeding HISTORY OF PRESENT ILLNESS: The patient is a 89-year-old female who presented with acute onset right lower quadrant abdominal pain including rectal bleeding moderate. She underwent exploratory laparotomy with resection of right colon for over 10 cm lesion with invasion into abdominal wall. Additionally findings of small bowel obstruction with internal hernia was also addressed with small bowel resection. She has poor cardiac history including severe aortic stenosis and went into atrial fibrillation. As a result, she is in the critical care un it. She is currently on pressors. She awakens to voice. Her family is at bedside. She received fluid boluses overnight for hypotension. She is on a ventilator. ROS: No reports of nausea and vomiting. No fevers or chills. No productive sputum PHYSICAL EXAM: VITAL SIGNS: Reviewed CONSTITUTIONAL: Well developed and in no acute distress. EYES: Conjuctivae without sclera icterus. Extraocular movements grossly intact. HEAD, EARS, NOSE, THROAT: Moist buccal mucosa. Head is atraumatic, nor mocephalic. Hears conversational speech. No nasal drainage. RESPIRATORY: Mechanical ventilation. CARDIOVASCULAR: Palpable 2+ radial pulses. ABDOMEN: Soft, no peritonitis. Midline dressing intact with PREVENA. DEEDEE serosanguineous MUSCULOSKELETAL: No gross deformity of the lower extremities noted. No clubbing. No cyanosis. 2+ bilateral lower extremity edema SKIN: Good skin turgor. Well perfused. NEUROLOGIC: Cranial nerves I through XII grossly intact. No focal or lateralizing signs. CLINICAL LABS: White blood cell count elevated over 16,000 stress-induced responded PATHOLOGY: Consistent with tubulovillous adenoma sample of large colon mass ASSESSMENT: 1. Colon cancer with large colon mass 2. Aortic stenosis with unstable atrial fibrillation 3. Abdominal metastases with small bowel obstruction and right colon mass and hemorrhaging PLAN: 1. Overall condition is guarded with her multiple medical comorbidities prior to surgery. 2. At this time, continue with current ICU care. 3. Agreeable with TPN Objective - Vital Signs Vital signs: Vital Signs Temp 99.3 F 09/11/19 08:00 Pulse 73 09/11/19 08:00 Resp 21 09/11/19 08:00 BP 118/41 09/11/19 07:00 Pulse Ox 96 09/11/19 08:00 Intake & Output 09/10/19 09/11/19 09/11/19 18:59 06:59 18:59 Intake Total 3350 1485.727 40 Output Total 600 610 35 Balance 2750 875.727 5 Weight 81.7 kg 85.8 kg Intake: IV 2750 1220 40 Bolus Normal Saline 1000 LR @20ml/hr 220 40 Intake, IV Titration 600 265.727 Amount Norepinephrine 8 mg In 158.537 Sodium Chloride 0.9% 250 ml @ 0.05 MCG/KG/MIN 7. 904 mls/hr IV .Q24H [facility] Rx#:[id number] Propofol 1,000 mg In 7.19 Empty Bag 1 bag @ Titrate IV .Q0M [facility] Rx#: [id number] Sodium Chloride 0.9% 1, 600 000 ml @ 100 mls/hr IV . Q10H [facility] Rx#:[id number] metroNIDAZOLE-NS PMX 500 100 mg In Saline 1 100ml.bag @ 100 mls/hr IVPB Q8HR [facility] Rx#:[id number] Output: Drainage 350 Left Lower Abdomen 350 Urine 300 260 35 Estimated Blood Loss 300 Other: Voiding Method Indwelling Catheter Indwelling Catheter ABP, PAP, CO, CI - Last Documented Arterial Blood Pressure 93/58 - Labs CBC & Chem 7: 09/11/19 04:10 09/11/19 04:10 Labs: Abnormal Lab Results - Last 24 Hours (Table) 09/10/19 09/10/19 09/10/19 Range/Units 18:47 19:18 20:05 WBC 16.9 H (3.8-10.6) k/uL RBC 3.05 L (3.80-5.40) m/uL Hgb 9.1 L (11.4-16.0) gm/dL Hct 29.6 L (34.0-46.0) % MCHC 30.8 L (31.0-37.0) g/dL RDW 18.3 H (11.5-15.5) % Neutrophils # 14.9 H (1.3-7.7) k/uL Neutrophils # (Manual) (1.3-7.7) k/uL Monocytes # (Manual) (0-1.0) k/uL ABG pH 7.31 L (7.35-7.45) ABG pO2 324 H (83-108) mmHg ABG HCO3 18 L (21-25) mmol/L ABG Total CO2 (19-24) mmol/L ABG O2 Saturation 100.0 H (94-97) % Chloride (98-107) mmol/L Carbon Dioxide (22-30) mmol/L BUN (7-17) mg/dL Creatinine (0.52-1.04) mg/dL Glucose (74-99) mg/dL POC Glucose (mg/dL) 130 H (75-99) mg/dL Phosphorus (2.5-4.5) mg/dL Alkaline Phosphatase (38-126) U/L Total Protein (6.3-8.2) g/dL Albumin (3.5-5.0) g/dL Urine Appearance (Clear) Urine Protein (Negative) Urine Blood (Negative) Ur Leukocyte Esterase (Negative) Urine RBC (0-5) /hpf Urine WBC (0-5) /hpf Urine WBC Clumps (None) /hpf Urine Bacteria (None) /hpf Hyaline Casts (0-2) /lpf Urine Mucus (None) /hpf 09/10/19 09/10/19 09/10/19 Range/Units 20:05 20:15 20:42 WBC (3.8-10.6) k/uL RBC (3.80-5.40) m/uL Hgb (11.4-16.0) gm/dL Hct (34.0-46.0) % MCHC (31.0-37.0) g/dL RDW (11.5-15.5) % Neutrophils # (1.3-7.7) k/uL Neutrophils # (Manual) (1.3-7.7) k/uL Monocytes # (Manual) (0-1.0) k/uL ABG pH 7.31 L (7.35-7.45) ABG pO2 151 H (83-108) mmHg ABG HCO3 18 L (21-25) mmol/L ABG Total CO2 (19-24) mmol/L ABG O2 Saturation 99.8 H (94-97) % Chloride 115 H (98-107) mmol/L Carbon Dioxide 19 L (22-30) mmol/L BUN 35 H (7-17) mg/dL Creatinine 1.57 H (0.52-1.04) mg/dL Glucose 144 H (74-99) mg/dL POC Glucose (mg/dL) (75-99) mg/dL Phosphorus 4.9 H (2.5-4.5) mg/dL Alkaline Phosphatase 133 H (38-126) U/L Total Protein 4.4 L (6.3-8.2) g/dL Albumin 2.4 L (3.5-5.0) g/dL Urine Appearance Cloudy H (Clear) Urine Protein 1+ H (Negative) Urine Blood Moderate H (Negative) Ur Leukocyte Esterase Large H (Negative) Urine RBC >182 H (0-5) /hpf Urine WBC 164 H (0-5) /hpf Urine WBC Clumps Occasional H (None) /hpf Urine Bacteria Rare H (None) /hpf Hyaline Casts 6 H (0-2) /lpf Urine Mucus Rare H (None) /hpf 09/10/19 09/11/19 09/11/19 Range/Units 22:19 04:10 04:10 WBC 25.8 H (3.8-10.6) k/uL RBC 3.25 L (3.80-5.40) m/uL Hgb 9.6 L (11.4-16.0) gm/dL Hct 31.7 L (34.0-46.0) % MCHC 30.2 L (31.0-37.0) g/dL RDW 18.4 H (11.5-15.5) % Neutrophils # (1.3-7.7) k/uL Neutrophils # (Manual) 22.96 H (1.3-7.7) k/uL Monocytes # (Manual) 1.03 H (0-1.0) k/uL ABG pH (7.35-7.45) ABG pO2 (83-108) mmHg ABG HCO3 (21-25) mmol/L ABG Total CO2 (19-24) mmol/L ABG O2 Saturation (94-97) % Chloride 116 H (98-107) mmol/L Carbon Dioxide 16 L (22-30) mmol/L BUN 34 H (7-17) mg/dL Creatinine 1.73 H (0.52-1.04) mg/dL Glucose 140 H (74-99) mg/dL POC Glucose (mg/dL) 124 H (75-99) mg/dL Phosphorus 5.6 H (2.5-4.5) mg/dL Alkaline Phosphatase (38-126) U/L Total Protein (6.3-8.2) g/dL Albumin (3.5-5.0) g/dL Urine Appearance (Clear) Urine Protein (Negative) Urine Blood (Negative) Ur Leukocyte Esterase (Negative) Urine RBC (0-5) /hpf Urine WBC (0-5) /hpf Urine WBC Clumps (None) /hpf Urine Bacteria (None) /hpf Hyaline Casts (0-2) /lpf Urine Mucus (None) /hpf 09/11/19 09/11/19 Range/Units 07:56 11:35 WBC (3.8-10.6) k/uL RBC (3.80-5.40) m/uL Hgb (11.4-16.0) gm/dL Hct (34.0-46.0) % MCHC (31.0-37.0) g/dL RDW (11.5-15.5) % Neutrophils # (1.3-7.7) k/uL Neutrophils # (Manual) (1.3-7.7) k/uL Monocytes # (Manual) (0-1.0) k/uL ABG pH 7.29 L (7.35-7.45) ABG pO2 (83-108) mmHg ABG HCO3 17 L (21-25) mmol/L ABG Total CO2 18 L (19-24) mmol/L ABG O2 Saturation (94-97) % Chloride (98-107) mmol/L Carbon Dioxide (22-30) mmol/L BUN (7-17) mg/dL Creatinine (0.52-1.04) mg/dL Glucose (74-99) mg/dL POC Glucose (mg/dL) 139 H (75-99) mg/dL Phosphorus (2.5-4.5) mg/dL Alkaline Phosphatase (38-126) U/L Total Protein (6.3-8.2) g/dL Albumin (3.5-5.0) g/dL Urine Appearance (Clear) Urine Protein (Negative) Urine Blood (Negative) Ur Leukocyte Esterase (Negative) Urine RBC (0-5) /hpf Urine WBC (0-5) /hpf Urine WBC Clumps (None) /hpf Urine Bacteria (None) /hpf Hyaline Casts (0-2) /lpf Urine Mucus (None) /hpf Microbiology - Last 24 Hours (Table) 09/11/19 00:37 Sputum Culture - Preliminary Sputum 09/10/19 20:15 Urine Culture - Preliminary Urine,Voided Assessment and Plan (1) Abdominal mass Current Visit: Yes Status: Acute Priority: High Code(s): R19.00 - INTRA- ABD AND PELVIC SWELLING, MASS AND LUMP, UNSP SITE SNOMED Code(s): 060327494 (2) GI bleed Current Visit: Yes Status: Acute Priority: High Code(s): K92.2 - GASTROINTESTINAL HEMORRHAGE, UNSPECIFIED SNOMED Code(s): 66888246 (3) History of colon cancer Current Visit: Yes Status: Acute Code(s): Z85.038 - PERSONAL HISTORY OF MALIGNANT NEOPLASM OF LARGE INTESTINE SNOMED Code(s): 916292168 (4) Anemia Current Visit: Yes Status: Chronic Priority: Medium Code(s): D64.9 - ANEMIA, UNSPECIFIED SNOMED Code(s): 977037385 (5) Aortic stenosis Current Visit: Yes Status: Acute Code(s): I35.0 - NONRHEUMATIC AORTIC (VALVE) STENOSIS SNOMED Code(s): 00902483 (6) Atrial fibrillation Current Visit: No Status: Acute Code(s): I48.91 - UNSPECIFIED ATRIAL FIBRILLATION SNOMED Code(s): 75204879 (7) Atrial flutter Current Visit: No Status: Acute Code(s): I48.92 - UNSPECIFIED ATRIAL FLUTTER SNOMED Code(s): 5146219 (8) Diastolic CHF, acute on chronic Current Visit: No Status: Acute Code(s): I50.33 - ACUTE ON CHRONIC DIASTOLIC (CONGESTIVE) HEART FAILURE SNOMED Code(s): 909688383 (9) Systolic congestive heart failure Current Visit: No Status: Acute Code(s): I50.20 - UNSPECIFIED SYSTOLIC (CONGESTIVE) HEART FAILURE SNOMED Code(s): 73909228
--- NOTE | 2019-09-11 13:22 | CONS ---
CONSULTATION HISTORY OF PRESENT ILLNESS: Mrs. Callaway is an 89-year-old female who is seen for atrial fibrillation. This patient is currently intubated. The history obtained from the nurse as well as the patient's chart. This patient has a known history of a moderate to severe aortic stenosis, mitral regurgitation, mild mitral stenosis, tricuspid regurgitation and pulmonary hypertension. The patient has a history of diabetes as well as hypertension. Patient came with abdominal pain and patient was found to have a mass along the lateral wall of the ascending colon and soft tissue omental mass. Patient underwent surgery yesterday, exploratory laparotomy and hemicolectomy and resection of the transverse mesocolon tumor, small-bowel resection and distal jejunum to the ileum and repair of the incisional hernia. The patient, during the surgery, had atrial fibrillation with a rapid ventricular response and patient was cardioverted. Subsequently, patient has remained in the normal sinus rhythm. The patient's is hemodynamically unstable. Currently patient is on Levophed. There is no more reoccurrence of atrial fibrillation. PHYSICAL EXAMINATION: At present reveals an 89-year-old female who is intubated. Blood pressure is 93/58 mmHg. Respiratory rate is 20. HEENT examination is negative. Neck is supple. There is no increase in jugular venous pressure. HEART: First and second heart sounds are normal. There is a grade 3/6 ejection systolic murmur noted. LUNGS reveal bilateral scattered wheezes. ABDOMEN: Soft. EXTREMITIES: Peripheral pulses are not felt. There is no EKG available in the chart. The patient's echocardiogram in May showed moderate to severe aortic stenosis and severe mitral regurgitation. Chest x-ray suggestive of [place] [address]. The patient's urine output is low. Creatinine is 1.73. FINAL IMPRESSION: This patient is status post surgery for carcinoma of the ascending colon. At present, patient appears to be possibly in septic shock. The patient had episodes of atrial fibrillation with a rapid ventricular response in the OR when he was converted to the normal sinus rhythm. At present, patient is being maintained in the normal sinus rhythm. If the patient has a recurrent episodes of atrial fibrillation, we will start the patient on IV amiodarone but at present patient's prognosis remains extremely guarded in view of the patient's underlying moderate to severe aortic stenosis. Thank you for this consultation. MMODL / IJN: [id number] /
--- NOTE | 2019-09-11 14:28 | PCN ---
PROCEDURE NOTE PROCEDURE PERFORMED: Placement of right internal jugular triple-lumen catheter. PREOPERATIVE DIAGNOSIS: Postoperative hypotension requiring pressors. POSTOPERATIVE DIAGNOSIS: Postoperative hypotension requiring pressors. ANESTHESIA USED: 2 mL of 1% lidocaine. PROCEDURE: The patient was placed in a Trendelenburg position, the area of the cervical region was prepared in a sterile fashion and drapes were applied. Using the posterior approach, the right internal jugular vein was cannulated easily and a guidewire was placed. The area around the guidewire was dilated using a dilator. Then a triple-lumen catheter was inserted over the guidewire, and the guidewire was removed. Good blood flow was noted in the three different ports of the triple-lumen catheter. The line was secured using 3.0 silk sutures. Chest x-ray showed no evidence of any immediate complications. MMODL / IJN: [id number] /
[2019-09-11] MEDS ORDERED: MVI, ADULT NO.4 WITH VIT K 10 ML, TRACE (CONC-1ML/DOSE) 1 ML, PARENTERAL ELECTROLYTES 2... IV SCH ×4 (17:00)
[2019-09-11] MEDS: PIPERACILLIN-TAZOBACTAM 3.375 GM in SODIUM CHLORIDE 0.9% 100 ML IVPB SCH (18:31)
[2019-09-11] MEDS: LACTATED RINGERS 1,000 ML IV SCH (19:15)
[2019-09-11 19:24] LABS: Glucose,Whole Blood 187 mg/dL (75-99)
[2019-09-12] MEDS: INSULIN ASPART (NovoLOG) 100 UNIT/ML VIAL SQ SCH ×3 (00:01→11:54)
[2019-09-12] MEDS: metroNIDAZOLE-NS PMX 500 MG in SALINE 1 100ML.BAG IVPB SCH ×4 (00:02→23:25)
[2019-09-12 00:10] LABS: Glucose,Whole Blood 215 mg/dL (75-99)
[2019-09-12] MEDS: NOREPINEPHRINE 8 MG in SODIUM CHLORIDE 0.9% 250 ML IV SCH ×2 (00:17→10:12)
--- NOTE | 2019-09-12 00:42 | P.PN ---
Subjective Progress Note Date: 09/11/19 Principal diagnosis: Ascending colon mass status post colectomy History of presenting complaint: This is a very pleasant 89-year-old patient who follows with visiting physicians Dr. Amor. Chronic stable medical conditions include congestive heart failure with EF of 50%, aortic stenosis, mitral regurgitation, mitral stenosis, tricuspid regurgitation, secondary probably hypertension, diabetes, hypertension, osteoarthritis, hypothyroid, blind left eye, coronary artery disease, Briseyda filter.. Patient does use a walker. Patient did have a computed tomography scan of the abdomen on August 30 and did show mass along the lateral wall of the ascending colon and also adjacent soft tissue omental mass and is also another additional mass present in intra-abdominally. Suggestive of metastatic disease. Patient yesterday had some bleeding per the right rectum. And decided to come in. Patient's been having lower abdominal discomfort. She was admitted to the ER. Patient normally does use a walker. Lives alone. Colonoscopy done on September 07 shows ascending colon mass and AV malformation was some slight bleeding. 09/09/2019-. The patient does morning. Laying in bed. Tired. Pending surgery tomorrow. No new issues. 09/10/2019 Patient is currently mechanically ventilated. Status post 3 today.PROCEDURES PERFORMED: 1. Exploratory laparotomy with lysis of adhesions over 2-1/2 to 3 hours 2. Extensive right hemicolectomy 3. Resection of transverse mesocolon tumor, 4 cm 4. Takedown of internal hernia pelvis 5. Small bowel resection distal jejunum to ileum, over 2 feet 6. Repair of incisional hernia, mid abdomen, 5-cm 7. Placement of round #19 drain left lower quadrant 8. Placement of incisional wound VAC system PREVENA, 20 cm 09/11/2019 Patient is currently on mechanical ventilator. Status post surgery as above. Patient went into atrial fibrillation. Rate is controlled. Currently converted to normal sinus rhythm. Cardiology is following. Also hypotensive and is on process support. Patient was given fluid boluses.. Renal function worsened with creatinine 1.73. Patient is also having metabolic acidosis. Started on bicarb drip. Has been afebrile. No nausea vomiting. Chest x-ray showed worsening bibasilar airspace disease. Complete review of systems could not be obtained from the patient. Objective - Vital Signs Vital signs: Vital Signs Temp 98.8 F 12/08/19 20:00 Pulse 75 09/11/19 21:15 Resp 18 09/11/19 20:45 BP 121/54 09/11/19 21:15 Pulse Ox 98 09/11/19 21:15 Intake & Output 09/11/19 09/11/19 09/12/19 06:59 18:59 06:59 Intake Total 7957.142 6901.684 473.684 Output Total 610 468 240 Balance 333.310 2792.684 233.684 Weight 85.8 kg 85.8 kg Intake: IV 1220 1690 310 Bolus Normal Saline 1000 1000 Dextrose 5% in Water 1, 450 150 000 ml @ 50 mls/hr IV . Q23H [facility] with Sodium Bicarb (1 Meq/ml) 150 ml Rx#:[id number] LR @20ml/hr 220 240 60 Mvi, Adult No.4 with Vit 100 K 10 ml Trace (Conc-1Ml/ Dose) 1 ml Parenteral Electrolytes 20 ml In Amino Acid 4.25%-D10w 1, 000 ml @ 50 mls/hr IV . [id number] [facility] Rx#:[id number] Intake, IV Titration 265.727 246.684 163.684 Amount Furosemide 100 mg In 83.667 Sodium Chloride 0.9% 90 ml @ 10 MG/HR 10 mls/hr IV .Q10H [facility] Rx#: [id number] Norepinephrine 8 mg In 158.537 153.874 80.017 Sodium Chloride 0.9% 250 ml @ 0.05 MCG/KG/MIN 7. 904 mls/hr IV .Q24H [facility] Rx#:[id number] Propofol 1,000 mg In 7.19 92.81 Empty Bag 1 bag @ Titrate IV .Q0M [facility] Rx#: [id number] metroNIDAZOLE-NS PMX 500 100 mg In Saline 1 100ml.bag @ 100 mls/hr IVPB Q8HR [facility] Rx#:[id number] Output: Drainage 350 80 30 Left Lower Abdomen 350 80 30 Urine 260 388 210 Other: Voiding Method Indwelling Catheter Indwelling Catheter ABP, PAP, CO, CI - Last Documented Arterial Blood Pressure 117/47 - Exam PHYSICAL EXAMINATION: Patient is currently on mechanical ventilator.. HEENT: Normocephalic. Neck is supple. Pupils reactive. Nostrils clear. Oral cavity is moist. Ears reveal no drainage. Neck reveals no JVD, carotid bruits, or thyromegaly. CHEST EXAMINATION: Trachea is central. Symmetrical expansion. Bibasilar diminished air entry.. CARDIAC: Normal S1, S2 with no gallops. No murmurs ABDOMEN: Soft. Bowel sounds diminished. Surgical site is bandaged. Wound VAC in place.. Extremities: reveal no edema. No clubbing or cyanosis Neurologically sedated and on mechanical ventilator. Skin: No rash or skin lesions. Psychiatric: Could not be assessed Musculoskeletal: No joint swelling or deformity. INVESTIGATIONS, reviewed in the clinical context: White count 8.4 hemoglobin 8.2 platelets 232 progression bun 59 creatinine 1.7 Previous testing White count 8.6 hemoglobin 8.2 platelets 242 progression 4.2 bun 45 creatinine 1.57 Previous testing White count 9.6 hemoglobin 9.2 platelets 240 progression 4.7 BUN 73 creatinine 1.79 Computed tomography scan of the abdomen-results noted as above - Labs CBC & Chem 7: 09/11/19 04:10 09/11/19 04:10 Labs: Abnormal Lab Results - Last 24 Hours (Table) 09/10/19 09/11/19 09/11/19 Range/Units 22:19 04:10 04:10 WBC 25.8 H (3.8-10.6) k/uL RBC 3.25 L (3.80-5.40) m/uL Hgb 9.6 L (11.4-16.0) gm/dL Hct 31.7 L (34.0-46.0) % MCHC 30.2 L (31.0-37.0) g/dL RDW 18.4 H (11.5-15.5) % Neutrophils # (Manual) 22.96 H (1.3-7.7) k/uL Monocytes # (Manual) 1.03 H (0-1.0) k/uL ABG pH (7.35-7.45) ABG HCO3 (21-25) mmol/L ABG Total CO2 (19-24) mmol/L Chloride 116 H (98-107) mmol/L Carbon Dioxide 16 L (22-30) mmol/L BUN 34 H (7-17) mg/dL Creatinine 1.73 H (0.52-1.04) mg/dL Glucose 140 H (74-99) mg/dL POC Glucose (mg/dL) 124 H (75-99) mg/dL Phosphorus 5.6 H (2.5-4.5) mg/dL 09/11/19 09/11/19 09/11/19 Range/Units 07:56 11:35 19:12 WBC (3.8-10.6) k/uL RBC (3.80-5.40) m/uL Hgb (11.4-16.0) gm/dL Hct (34.0-46.0) % MCHC (31.0-37.0) g/dL RDW (11.5-15.5) % Neutrophils # (Manual) (1.3-7.7) k/uL Monocytes # (Manual) (0-1.0) k/uL ABG pH 7.29 L (7.35-7.45) ABG HCO3 17 L (21-25) mmol/L ABG Total CO2 18 L (19-24) mmol/L Chloride (98-107) mmol/L Carbon Dioxide (22-30) mmol/L BUN (7-17) mg/dL Creatinine (0.52-1.04) mg/dL Glucose (74-99) mg/dL POC Glucose (mg/dL) 139 H 187 H (75-99) mg/dL Phosphorus (2.5-4.5) mg/dL Microbiology - Last 24 Hours (Table) 09/11/19 00:37 Sputum Culture - Preliminary Sputum 09/10/19 20:15 Urine Culture - Preliminary Urine,Voided Assessment and Plan Assessment: -Ascending colon mass, per coloscopy, is post resection. Abdominal metastasis. Postoperative day 1. Follow-up biopsy report. -Postoperative ventilator-dependent respiratory failure expected. -New onset Atrial fibrillation with controlled rate. Converted to sinus rhythm. 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 Continue the pain management. Continue with IV antibiotics. Gen. surgery cardiology and Pulmonary is on board. Further recommendations based on the clinical course... Time with Patient: Greater than 30
[2019-09-12 04:07] LABS: ABG Base Excess -5.6 mmol/L; ABG HCO3 19 mmol/L (21-25); ABG Oxygen Saturation 99.9 % (94-97); ABG PCO2 33 mmHg (35-45); ABG PH 7.38 (7.35-7.45); ABG PO2 142 mmHg (83-108); ABG TCO2 20 mmol/L (19-24); Allen Test Performed? Yes
[2019-09-12] MEDS ORDERED: ACETAMINOPHEN IV (For NPO) 1,000 MG in EMPTY BAG 1 BAG IVPB PRN (04:33)
[2019-09-12 04:45] LABS: Anisocytosis Slight; Basophils % (A) 0 %; Eosinophils # (A) 0.2 k/uL (0-0.7); Eosinophils % (A) 1 %; HCT 27.6 % (34.0-46.0); HGB 8.4 gm/dL (11.4-16.0); Hypochromasia Marked; Lymphocytes # (A) 1.8 k/uL (1.0-4.8); Lymphocytes % (A) 9 %; MCH 29.5 pg (25.0-35.0); MCHC 30.5 g/dL (31.0-37.0); MCV 96.7 fL (80.0-100.0); Macrocytosis Slight; Mean Platelet Volume 10.1; Monocytes # (A) 1.5 k/uL (0-1.0); Monocytes % (A) 8 %; Neutrophils # (A) 14.7 k/uL (1.3-7.7); Neutrophils % (A) 78 %; Platelet Count 222 k/uL (150-450); Poikilocytosis Moderate; RBC 2.85 m/uL (3.80-5.40); RDW 19.2 % (11.5-15.5); WBC 18.8 k/uL (3.8-10.6)
[2019-09-12] MEDS: FUROSEMIDE 100 MG in SODIUM CHLORIDE 0.9% 90 ML IV SCH (04:48)
[2019-09-12 04:53] LABS: Ionized Calcium 5.3 mg/dL (4.5-5.3)
[2019-09-12 05:04] LABS: Albumin 2.1 g/dL (3.5-5.0); Calcium 8.1 mg/dL (8.4-10.2); Magnesium 2.4 mg/dL (1.6-2.3); Phosphorus 3.7 mg/dL (2.5-4.5); Potassium 4.2 mmol/L (3.5-5.1)
[2019-09-12] MEDS: PIPERACILLIN-TAZOBACTAM 3.375 GM in SODIUM CHLORIDE 0.9% 100 ML IVPB SCH ×2 (05:35→18:02)
[2019-09-12] MEDS: LEVOTHYROXINE 75 MCG TAB PO SCH (05:36)
[2019-09-12] MEDS: INSULIN DETEMIR (LEVEMIR) 100 UNIT/ML SYR SQ SCH (05:58)
[2019-09-12 06:05] LABS: Glucose,Whole Blood 231 mg/dL (75-99)
[2019-09-12] MEDS: PROPOFOL 1,000 MG in EMPTY BAG 1 BAG IV SCH (06:48)
--- NOTE | 2019-09-12 07:13 | XR ---
EXAMINATION TYPE: XR chest 1V portable DATE OF EXAM: 09/12/2019 COMPARISON: 09/11/2019 HISTORY: Ventilatory dependent respiratory failure. TECHNIQUE: Single frontal view of the chest is obtained. FINDINGS: Enteric, endotracheal, and right internal jugular central venous catheter lines and tubes are stable. However the enteric tube is cephalad in position and could be advanced 5 cm for optimal p lacement as is fenestrated portion is above the gastroesophageal junction. There are similar appearin g bibasilar opacities and trace pleural effusions with underlying emphysema. Cardiac and Sternotomy wires are seen with multilead left-sided cardiac device. IMPRESSION: 1. Similar-appearing bibasilar opacities and trace pleural effusions. 2. Cephalad placement of the enteric tube, which could be advanced 5 cm for optimal placement.
[2019-09-12] MEDS: SODIUM BICARBONATE TAB 650 MG TAB PO SCH ×2 (08:00→20:20)
[2019-09-12] MEDS: ALLOPURINOL 100 MG TAB PO SCH (08:00)
[2019-09-12] MEDS: CHLORHEXIDINE GLUCONATE 15 ML CUP MUCOUS MEM SCH ×2 (08:14→20:20)
[2019-09-12] MEDS: HEPARIN SODIUM,PORCINE 5,000 UNIT/ML 1 ML VIAL SQ SCH ×2 (08:14→20:20)
[2019-09-12] MEDS: PANTOPRAZOLE 40 MG/10 ML VIAL IV SCH (08:14)
[2019-09-12] MEDS: DEXTROSE 5% IN WATER 1,000 ML with SODIUM BICARB (1 MEQ/ML) 150 ML IV SCH ×2 (08:15→10:11)
--- NOTE | 2019-09-12 09:08 | CDI ---
Documentation Clarification Form Date: 09/12/2019 8:57:08 AM From: Heena Hayden RN, CCDS Admit Date: 09/05/2019 3:52:00 PM Patient Name: Libertad Callaway Visit Number: [id number] ATTENTION: The Clinical Documentation Specialists (CDI) and [facility] Coding Staff appreciate your assistance in clarifying documentation. Please respond to the clarification below the line at the bottom and electronically sign. The CDI & [facility] Coding staff will review the response and follow-up if needed. Please note: Queries are made part of the Legal Health Record. If you have any questions, please contact the author of this message via ITS. Dr. Dorina Kim History/Risk Factors: Atrial Fib, CAD, GI, HTN, Pneumonia Clinical Indicators: 09/11 Cardiology Consult: "Mrs. Callaway is an 89-year-old female who is seen for atrial fibrillation. The patient, during the surgery, had atrial fibrillation with a rapid ventricular response and patient was cardioverted. There is no more reoccurrence of atrial fibrillation." EKG/telemetry: NSR at current time Treatment: Consults: Cardiology Coreg 3.125 PO BID with meals Patient is currently on Levophed drip titrate for B/P 2.5 L IVF Bolus In your professional opinion, can you please clarify the type of Atrial Fibrillation, if known? Chronic/Permanent Paroxysmal Persistent Other, please specify Unable to determine (Last Revision: January 2018) MTDD
--- NOTE | 2019-09-12 09:23 | CDI ---
Documentation Clarification Form Date: 09/12/2019 9:09:53 AM From: Heena Hayden RN, CCDS Admit Date: 09/05/2019 3:52:00 PM Patient Name: Libertad Callaway Visit Number: [id number] ATTENTION: The Clinical Documentation Specialists (CDI) and [facility] Coding Staff appreciate your assistance in clarifying documentation. Please respond to the clarification below the line at the bottom and electronically sign. The CDI & [facility] Coding staff will review the response and follow-up if needed. Please note: Queries are made part of the Legal Health Record. If you have any questions, please contact the author of this message via ITS. Dr. Rob Sam "Postoperative hypotensive requiring pressors" is documented and requires further specificity. Patient history/risk factors: Acute lower GIB, HTN, colonic diverticulosis Clinical Indicators: 09/11 Pulmonary Consult: "Last night, the patient had episodes of hypotension requiring fluid boluses and placement of norepinephrine. She is presently on 0.2 mcg/kg/m of norepinephrine. She is on mechanical ventilation with tidal volume of 450 FiO2 of 45% PEEP of 5 assist control rate of 18.Right IJ central line was placed because of the patient is requiring pressers for hypotension. She is noted to be acidosis with a biker of 18 and pH of 7.29, hence I initiated sodium biker drip on this patient. Renal functioning is poor, Creatinine today is 1.73, admission Creatinine was 1.79.Patient is known to have history of diastolic congestive heart failure, and aortic stenosis. 09/11 1200 Vitals: Temp 99.5, hr 96, RR 18, NB/P 130/49, AB/P 90/43, 98% MV Treatment: D%HCO3 gtt Multiple Doses of Lasix IVP for CHF, IV Levophed Gtt, titrate for B/P 2L IVF bolus In your professional opinion, can you please specify the type of shock if known? Hypovolemic Shock Cause Cardiogenic Shock Cause Other, please specify Unable to determine (Last Revision: July 2017) Hypovolemic shock MTDD
--- NOTE | 2019-09-12 09:48 | P.PN ---
Progress Note - Text Anesthesia. Patient is status post exploratory laparotomy and bowel resection. She remains sedated intubated and with her epidural now running at 2 mL per hour. The epidural was at 6 mL per hour but was dialed back because of issues with hypotension. Sedation is to be weaned today and we will have a better idea of effectiveness of her epidural once she wakes up. Site is clean and dry and free of any evidence of infection.
--- NOTE | 2019-09-12 11:13 | PN ---
PROGRESS NOTE PULMONARY/CRITICAL CARE PROGRESS NOTE: DATE OF SERVICE: September 12, 2019 CRITICAL CARE TIME: 36 minutes. This is an 89-year-old female admitted to the hospital on September 05. She came in with a diagnosis of GI bleeding, colon cancer. She apparently was intubated on the when she went to the operating room. She had an exploratory laparotomy, lysis of adhesions, right hemicolectomy, transverse colon resection, hernia repair, and small-bowel resection. She did not require a colostomy. Anyway, the patient has been in the ICU on the ventilator since the when she came back from the operating room. She is a NO CODE. Currently, she is on the volume assist-control mode rate of 18, tidal volume 450, FiO2 of 45%, PEEP of 5. Blood gases showed a pO2 of 142, a pCO2 of 33 and a pH 7.38. These blood gases consistent with hyperoxia and mixed acid-base disturbance including a mild respiratory alkalosis and metabolic acidosis. Her rate will be increased from 18 to 22 and her tidal volume will be dropped from 450 to 350. Her FiO2 was already dropped from 45% to 35% based on these blood gases. The patient is on D5W 3 amps of bicarb at 50 mL an hour, Lasix drip a 10 mg an hour, TPN at 50 mL an hour, propofol at 20 mcg/kg per minute and norepinephrine at 10 mcg/minute as well lactated Ringer's at 20 mL an hour, and epidural catheter. The surgery by the way was done by Dr. Parkinson. I did ask the nurses to stop the propofol and do a daily interruption of sedation with possible evaluation for spontaneous breathing trial. Given her significant surgery and her age, I am not sure she is ready, but we should evaluate her on a daily basis. PHYSICAL EXAMINATION: VITAL SIGNS: Current vital signs are reviewed. Her temperature is 98.2, heart rate 67, respiratory rate 22, blood pressure 119/39, saturations are 99%. Central venous pressure is between 6 to 8 cm of water. GENERAL: Appears in no acute distress. Currently sedated. HEENT: Examination is grossly unremarkable. There is an orally placed endotracheal tube. NG tube is also noted. NECK: Supple. Full range of motion. No adenopathy. Neck veins are flat. CARDIOVASCULAR: Examination reveals regular rhythm and rate. S1, S2 normal. No S3, S4, or murmur. Heart sounds are distant. LUNGS: Reveal coarse rhonchi bilaterally. No wheezes. Breath sounds equal. ABDOMEN: Soft. Midline incision is noted. No bowel sounds are noted. Wound VAC is noted. EXTREMITIES: Are intact. No cyanosis, clubbing, or significant edema. SKIN: Without rash. NEUROLOGIC: Examination could not be adequately assessed given her current level of sedation. LABORATORY DATA: Laboratory data is reviewed. White count 18.8, hemoglobin 8.4, hematocrit 27.6, platelet count 222,000. Sodium 138, potassium 4.2, chloride 114, CO2 is 19. Anion gap is 5. BUN and creatinine were 42 and 2.08. Albumin 2.1. Microbiologic studies including peritoneal fluid analysis, sputum and urine, all negative. Chest x-ray shows some trace pleural effusion, some bibasilar atelectasis or infiltrates. MEDICATIONS: Medications are reviewed. ASSESSMENT: 1. Postoperative day #2, status post exploratory laparotomy with lysis of adhesions, right hemicolectomy, transverse colon resection, hernia repair, small bowel resection, lysis of adhesions, and placement of a Prevena wound VAC. 2. Postoperative respiratory failure with routine postoperative ventilator management. 3. Colon cancer. 4. Gastrointestinal bleed. 5. Chronic iron deficiency anemia. 6. History of colon resection. 7. Ischemic cardiomyopathy. 8. Diastolic heart failure. 9. History of atrial fibrillation. 10.Previous history of pulmonary embolism with Briseyda filter placement. 11.Sleep apnea syndrome. 12.Type 2 diabetes mellitus with diabetic neuropathy. 13.History of hypertensive heart disease. 14.History of bypass grafting. 15.History of aortic valve replacement. 16.Depression. 17.Gout. 18.Status post permanent pacemaker. 19.Hypothyroidism. 20.Colon cancer, transverse colon. PLAN: The patient's propofol will be held. We will do a daily interruption of sedation and evaluate the patient for spontaneous breathing trial. The patient's assist-control rate will be increased from 18 to 22 and tidal volume will be dropped from 450 to 350. The FiO2 was dropped from 45% to 35% based on the blood gases. Blood gases show evidence of hyperoxia with a mixed acid-base disturbance including a respiratory alkalosis and metabolic acidosis. The patient remains on a number of different IV fluids including D5W with 3 amps of bicarb at 50 mL an hour, Lasix drip a 10 mg an hour, TPN at 50 mL an hour, propofol at 20 mcg/kg/minute, Levophed at 10 mcg/minute. She is also on lactated Ringer's at 20 mL an hour. She has an epidural in place. Overall prognosis remains very guarded. Given her age and multiple medical problems as listed above, her prognosis is very guarded to say the least. Additional recommendations and suggestions are forthcoming. We will continue to follow. Medications are reviewed. CRITICAL CARE TIME: 36 minutes. PERFECTO / LENAN: [id number] /
[2019-09-12 12:01] LABS: Glucose,Whole Blood 214 mg/dL (75-99)
--- NOTE | 2019-09-12 12:19 | P.PN ---
Subjective Progress Note Date: 09/12/19 CHIEF COMPLAINT: Large colon mass with bleeding HISTORY OF PRESENT ILLNESS: The patient is a 89-year-old female who presented with acute onset right lower quadrant abdominal pain including rectal bleeding moderate. She underwent exploratory laparotomy with resection of right colon for over 10 cm lesion with invasion into abdominal wall including small bowel resection for internal small bowel obstruction. Overnight, she is doing better. Her Levophed requirement decreased from 20 mics at 10 mics. She awakens to voice. Per discussion with nursing, patient was switched from a FULL CODE to a DO NOT RESUSCITATE. ROS: No reports of nausea and vomiting. No fevers or chills. No productive spu haydee PHYSICAL EXAM: VITAL SIGNS: Reviewed CONSTITUTIONAL: Well developed and in no acute distress. EYES: Conjuctivae without sclera icterus. Extraocular movements grossly intact. HEAD, EARS, NOSE, THROAT: Moist buccal mucosa. Head is atraumatic, normocephalic. Hears conversational speech. No nasal drainage. RESPIRATORY: Mechanical ventilation. CARDIOVASCULAR: Palpable 2+ radial pulses. ABDOMEN: Soft, no peritonitis. Midline dressing intact with PREVENA. DEEDEE serosanguineous MUSCULOSKELETAL: No gross deformity of the lower extremities noted. No clubbing. No cyanosis. 2+ bilateral lower extremity edema SKIN: Good skin turgor. Well perfused. NEUROLOGIC: Cranial nerves I through XII grossly intact. No focal or lateralizing signs. CLINICAL LABS: White blood cell count elevated from 25,000 down to 18,000 STUDIES: Chest x-ray without pneumonias. Small bilateral pleural effusions ASSESSMENT: 1. Colon cancer with large colon mass 2. Aortic stenosis with unstable atrial fibrillation 3. Abdominal metastases with small bowel obstruction and right colon mass and hemorrhaging PLAN: 1. Clinically, she stable. 2. Infectious disease consultation for adjustment of antibiotics 3. Send DEEDEE fluid for peritoneal cultures 4. Wean off ventilator when feasible Objective - Vital Signs Vital signs: Vital Signs Temp 98.8 F 09/12/19 12:00 Pulse 72 09/12/19 12:00 Resp 12 09/12/19 12:00 BP 117/47 09/12/19 12:00 Pulse Ox 98 09/12/19 12:00 Intake & Output 09/11/19 09/12/19 09/12/19 18:59 06:59 18:59 Intake Total 3872.142 3402.090 905.427 Output Total 468 1065 435 Balance 2479.015 5371.090 470.427 Weight 85.8 kg 85.9 kg 85.9 kg Intake: IV 1690 1402 756 Bolus Normal Saline 1000 Dextrose 5% in Water 1, 450 600 300 000 ml @ 50 mls/hr IV . Q23H IRENE with Sodium Bicarb (1 Meq/ml) 150 ml Rx#:[id number] LR @20ml/hr 240 240 120 Mvi, Adult No.4 with Vit 550 300 K 10 ml Trace (Conc-1Ml/ Dose) 1 ml Parenteral Electrolytes 20 ml In Amino Acid 4.25%-D10w 1, 000 ml @ 50 mls/hr IV . [id number] IRENE Rx#:[id number] pressure bag 12 36 Intake, IV Titration 246.684 711.090 149.427 Amount Furosemide 100 mg In 179.500 Sodium Chloride 0.9% 90 ml @ 10 MG/HR 10 mls/hr IV .Q10H IRENE Rx#: [id number] Norepinephrine 8 mg In 153.874 353.485 113.300 Sodium Chloride 0.9% 250 ml @ 0.05 MCG/KG/MIN 7. 904 mls/hr IV .Q24H IRENE Rx#:[id number] Propofol 1,000 mg In 92.81 178.105 36.127 Empty Bag 1 bag @ Titrate IV .Q0M IRENE Rx#: [id number] Output: Drainage 80 310 Left Lower Abdomen 80 310 Urine 388 755 435 Other: Voiding Method Indwelling Catheter Indwelling Catheter Indwelling Catheter ABP, PAP, CO, CI - Last Documented Arterial Blood Pressure 122/41 - Labs CBC & Chem 7: 09/12/19 04:35 09/12/19 04:35 Labs: Abnormal Lab Results - Last 24 Hours (Table) 09/11/19 09/11/19 09/12/19 Range/Units 19:12 23:58 04:05 WBC (3.8-10.6) k/uL RBC (3.80-5.40) m/uL Hgb (11.4-16.0) gm/dL Hct (34.0-46.0) % MCHC (31.0-37.0) g/dL RDW (11.5-15.5) % Neutrophils # (1.3-7.7) k/uL Monocytes # (0-1.0) k/uL ABG pCO2 33 L (35-45) mmHg ABG pO2 142 H (83-108) mmHg ABG HCO3 19 L (21-25) mmol/L ABG O2 Saturation 99.9 H (94-97) % Chloride (98-107) mmol/L Carbon Dioxide (22-30) mmol/L BUN (7-17) mg/dL Creatinine (0.52-1.04) mg/dL Glucose (74-99) mg/dL POC Glucose (mg/dL) 187 H 215 H (75-99) mg/dL Calcium (8.4-10.2) mg/dL Magnesium (1.6-2.3) mg/dL Albumin (3.5-5.0) g/dL 09/12/19 09/12/19 09/12/19 Range/Units 04:35 04:35 05:53 WBC 18.8 H (3.8-10.6) k/uL RBC 2.85 L (3.80-5.40) m/uL Hgb 8.4 L (11.4-16.0) gm/dL Hct 27.6 L (34.0-46.0) % MCHC 30.5 L (31.0-37.0) g/dL RDW 19.2 H (11.5-15.5) % Neutrophils # 14.7 H (1.3-7.7) k/uL Monocytes # 1.5 H (0-1.0) k/uL ABG pCO2 (35-45) mmHg ABG pO2 (83-108) mmHg ABG HCO3 (21-25) mmol/L ABG O2 Saturation (94-97) % Chloride 114 H (98-107) mmol/L Carbon Dioxide 19 L (22-30) mmol/L BUN 42 H (7-17) mg/dL Creatinine 2.08 H (0.52-1.04) mg/dL Glucose 198 H (74-99) mg/dL POC Glucose (mg/dL) 231 H (75-99) mg/dL Calcium 8.1 L (8.4-10.2) mg/dL Magnesium 2.4 H (1.6-2.3) mg/dL Albumin 2.1 L (3.5-5.0) g/dL 09/12/19 Range/Units 11:50 WBC (3.8-10.6) k/uL RBC (3.80-5.40) m/uL Hgb (11.4-16.0) gm/dL Hct (34.0-46.0) % MCHC (31.0-37.0) g/dL RDW (11.5-15.5) % Neutrophils # (1.3-7.7) k/uL Monocytes # (0-1.0) k/uL ABG pCO2 (35-45) mmHg ABG pO2 (83-108) mmHg ABG HCO3 (21-25) mmol/L ABG O2 Saturation (94-97) % Chloride (98-107) mmol/L Carbon Dioxide (22-30) mmol/L BUN (7-17) mg/dL Creatinine (0.52-1.04) mg/dL Glucose (74-99) mg/dL POC Glucose (mg/dL) 214 H (75-99) mg/dL Calcium (8.4-10.2) mg/dL Magnesium (1.6-2.3) mg/dL Albumin (3.5-5.0) g/dL Microbiology - Last 24 Hours (Table) 09/11/19 17:05 Gram Stain - Preliminary Peritoneal Fluid Body Fluid Culture - Preliminary 09/11/19 00:37 Gram Stain - Preliminary Sputum Sputum Culture - Preliminary 09/10/19 20:15 Urine Culture - Preliminary Urine,Voided Assessment and Plan (1) Abdominal mass Current Visit: Yes Status: Acute Priority: High Code(s): R19.00 - INTRA- ABD AND PELVIC SWELLING, MASS AND LUMP, UNSP SITE SNOMED Code(s): 748036173 (2) GI bleed Current Visit: Yes Status: Acute Priority: High Code(s): K92.2 - GASTROINTESTINAL HEMORRHAGE, UNSPECIFIED SNOMED Code(s): 87714048 (3) History of colon cancer Current Visit: Yes Status: Acute Code(s): Z85.038 - PERSONAL HISTORY OF MALIGNANT NEOPLASM OF LARGE INTESTINE SNOMED Code(s): 938308548 (4) Anemia Current Visit: Yes Status: Chronic Priority: Medium Code(s): D64.9 - ANEMIA, UNSPECIFIED SNOMED Code(s): 007629541 (5) Aortic stenosis Current Visit: Yes Status: Acute Code(s): I35.0 - NONRHEUMATIC AORTIC (VALVE) STENOSIS SNOMED Code(s): 77846261 (6) Atrial fibrillation Current Visit: No Status: Acute Code(s): I48.91 - UNSPECIFIED ATRIAL FIBRILLATION SNOMED Code(s): 54892539 (7) Atrial flutter Current Visit: No Status: Acute Code(s): I48.92 - UNSPECIFIED ATRIAL FLUTTER SNOMED Code(s): 1086003 (8) Diastolic CHF, acute on chronic Current Visit: No Status: Acute Code(s): I50.33 - ACUTE ON CHRONIC DIASTOLIC (CONGESTIVE) HEART FAILURE SNOMED Code(s): 244268296 (9) Systolic congestive heart failure Current Visit: No Status: Acute Code(s): I50.20 - UNSPECIFIED SYSTOLIC (CONGESTIVE) HEART FAILURE SNOMED Code(s): 22362584
[2019-09-12] MEDS: IPRATROPIUM-ALBUTEROL 3 ML NEB INHALATION SCH ×3 (12:48→20:07)
--- NOTE | 2019-09-12 13:03 | PN ---
PROGRESS NOTE This patient was seen for atrial fibrillation. Patient is status post surgery for colectomy and lysis of the adhesion. Patient had an episode of atrial fibrillation during surgery. Patient remains in normal sinus rhythm. No dysrhythmias are noted. Patient currently is still on 10 mcg of Levophed. Blood pressure is now 120/70 mmHg. First and second heart sounds are heard. There is a grade 3/6 ejection systolic murmur noted. Lungs are fairly clear to auscultation and percussion. Patient's creatinine is 2.08. ASSESSMENT AND PLAN: Patient remains stable cardiac-mcdaniel without any episodes of recurrent atrial fibrillation. We will now see the patient p.r.n. If the patient has recurrent episodes of atrial fibrillation, we will start the patient on amiodarone. MMODL / IJN: [id number] /
--- NOTE | 2019-09-12 14:24 | P.PN ---
Subjective 89-year-old patient who follows with visiting physicians Dr. Amor. Chronic stable medical conditions include congestive heart failure with EF of 50%, aortic stenosis, mitral regurgitation, mitral stenosis, tricuspid regurgitation, secondary probably hypertension, diabetes, hypertension, osteoarthritis, hypothyroid, blind left eye, coronary artery disease, Briseyda filter.. Patient does use a walker. Patient did have a computed tomography scan of the abdomen on August 30 and did show mass along the lateral wall of the ascending colon and also adjacent soft tissue omental mass and is also another additional mass present in intra-abdominally. Suggestive of metastatic disease. Patient yesterday had some bleeding per the right rectum. And decided to come in. Patient's been having lower abdominal discomfort. She was admitted to the ER. Patient normally does use a walker. Lives alone. Colonoscopy done on September 07 shows ascending colon mass and AV malformation was some slight bleeding. 09/09/2019-. The patient does morning. Laying in bed. Tired. Pending surgery tomorrow. No new issues. 09/10/2019 Patient is currently mechanically ventilated. Status post 3 today.PROCEDURES PERFORMED: 1. Exploratory laparotomy with lysis of adhesions over 2-1/2 to 3 hours 2. Extensive right hemicolectomy 3. Resection of transverse mesocolon tumor, 4 cm 4. Takedown of internal hernia pelvis 5. Small bowel resection distal jejunum to ileum, over 2 feet 6. Repair of incisional hernia, mid abdomen, 5-cm 7. Placement of round #19 drain left lower quadrant 8. Placement of incisional wound VAC system PREVENA, 20 cm 09/11/2019 Patient is currently on mechanical ventilator. Status post surgery as above. Patient went into atrial fibrillation. Rate is controlled. Currently converted to normal sinus rhythm. Cardiology is following. Also hypotensive and is on process support. Patient was given fluid boluses.. Renal function worsened with creatinine 1.73. Patient is also having metabolic acidosis. Started on bicarb drip. Has been afebrile. No nausea vomiting. 09/12/2019 Patient is extubated today, does have an epidural sluggish bowel sounds. Has a drain in the left lower abdomen. Patient is able to answer questions appropriately but appears to be bit delirious from a opiate analgesia and propofol while she was intubated. Did not pass gas did not move her bowels yet. Constitutional: Denied any fatigue denied any fever. Cardio vascular: denied any chest pain, palpitations Gastrointestinal denied any nausea vomiting Pulmonary: Denied any shortness of breath cough Neurologic denied any new focal deficits All inpatient medications were reviewed and appropriate changes in these medications as dictated in the interval history and assessment and plan. Objective - Vital Signs Vital signs: Vital Signs Temp 98.8 F 09/12/19 12:00 Pulse 80 09/12/19 14:00 Resp 17 09/12/19 14:00 BP 126/55 09/12/19 14:00 Pulse Ox 96 09/12/19 14:00 Intake & Output 09/11/19 09/12/19 09/12/19 18:59 06:59 18:59 Intake Total 9491.810 2453.090 1182.194 Output Total 468 1065 565 Balance 8438.688 1231.090 617.194 Weight 85.8 kg 85.9 kg 85.9 kg Intake: IV 1690 1402 1008 Bolus Normal Saline 1000 Dextrose 5% in Water 1, 450 600 400 000 ml @ 50 mls/hr IV . Q23H IRENE with Sodium Bicarb (1 Meq/ml) 150 ml Rx#:[id number] LR @20ml/hr 240 240 160 Mvi, Adult No.4 with Vit 550 400 K 10 ml Trace (Conc-1Ml/ Dose) 1 ml Parenteral Electrolytes 20 ml In Amino Acid 4.25%-D10w 1, 000 ml @ 50 mls/hr IV . [id number] IRENE Rx#:[id number] pressure bag 12 48 Intake, IV Titration 246.684 711.090 174.194 Amount Furosemide 100 mg In 179.500 Sodium Chloride 0.9% 90 ml @ 10 MG/HR 10 mls/hr IV .Q10H IRENE Rx#: [id number] Norepinephrine 8 mg In 153.874 353.485 138.067 Sodium Chloride 0.9% 250 ml @ 0.05 MCG/KG/MIN 7. 904 mls/hr IV .Q24H IRENE Rx#:[id number] Propofol 1,000 mg In 92.81 178.105 36.127 Empty Bag 1 bag @ Titrate IV .Q0M IRENE Rx#: [id number] Output: Drainage 80 310 Left Lower Abdomen 80 310 Urine 388 755 565 Other: Voiding Method Indwelling Catheter Indwelling Catheter Indwelling Catheter ABP, PAP, CO, CI - Last Documented Arterial Blood Pressure 129/41 - Exam PHYSICAL EXAMINATION: GENERAL: The patient is alert and oriented x2-3, be delirious as mentioned abovenot in any acute distress. Well developed, well nourished. HEENT: Pupils are round and equally reacting to light. EOMI. No scleral icterus. No conjunctival pallor. Normocephalic, atraumatic. No pharyngeal erythema. No thyromegaly. CARDIOVASCULAR: S1 and S2 present. No murmurs, rubs, or gallops. PULMONARY: Chest is clear to auscultation, no wheezing or crackles. ABDOMEN: Soft, nontender, nondistended, sluggish bowel sounds. No palpable organomegaly. her children the left lower quadrant MUSCULOSKELETAL: No joint swelling or deformity. EXTREMITIES: No cyanosis, clubbing, or pedal edema. NEUROLOGICAL: Gross neurological examination did not reveal any focal deficits. SKIN: No rashes. - Labs CBC & Chem 7: 09/12/19 04:35 09/12/19 04:35 Labs: Abnormal Lab Results - Last 24 Hours (Table) 09/11/19 09/11/19 09/12/19 Range/Units 19:12 23:58 04:05 WBC (3.8-10.6) k/uL RBC (3.80-5.40) m/uL Hgb (11.4-16.0) gm/dL Hct (34.0-46.0) % MCHC (31.0-37.0) g/dL RDW (11.5-15.5) % Neutrophils # (1.3-7.7) k/uL Monocytes # (0-1.0) k/uL ABG pCO2 33 L (35-45) mmHg ABG pO2 142 H (83-108) mmHg ABG HCO3 19 L (21-25) mmol/L ABG O2 Saturation 99.9 H (94-97) % Chloride (98-107) mmol/L Carbon Dioxide (22-30) mmol/L BUN (7-17) mg/dL Creatinine (0.52-1.04) mg/dL Glucose (74-99) mg/dL POC Glucose (mg/dL) 187 H 215 H (75-99) mg/dL Calcium (8.4-10.2) mg/dL Magnesium (1.6-2.3) mg/dL Albumin (3.5-5.0) g/dL 09/12/19 09/12/19 09/12/19 Range/Units 04:35 04:35 05:53 WBC 18.8 H (3.8-10.6) k/uL RBC 2.85 L (3.80-5.40) m/uL Hgb 8.4 L (11.4-16.0) gm/dL Hct 27.6 L (34.0-46.0) % MCHC 30.5 L (31.0-37.0) g/dL RDW 19.2 H (11.5-15.5) % Neutrophils # 14.7 H (1.3-7.7) k/uL Monocytes # 1.5 H (0-1.0) k/uL ABG pCO2 (35-45) mmHg ABG pO2 (83-108) mmHg ABG HCO3 (21-25) mmol/L ABG O2 Saturation (94-97) % Chloride 114 H (98-107) mmol/L Carbon Dioxide 19 L (22-30) mmol/L BUN 42 H (7-17) mg/dL Creatinine 2.08 H (0.52-1.04) mg/dL Glucose 198 H (74-99) mg/dL POC Glucose (mg/dL) 231 H (75-99) mg/dL Calcium 8.1 L (8.4-10.2) mg/dL Magnesium 2.4 H (1.6-2.3) mg/dL Albumin 2.1 L (3.5-5.0) g/dL 09/12/19 Range/Units 11:50 WBC (3.8-10.6) k/uL RBC (3.80-5.40) m/uL Hgb (11.4-16.0) gm/dL Hct (34.0-46.0) % MCHC (31.0-37.0) g/dL RDW (11.5-15.5) % Neutrophils # (1.3-7.7) k/uL Monocytes # (0-1.0) k/uL ABG pCO2 (35-45) mmHg ABG pO2 (83-108) mmHg ABG HCO3 (21-25) mmol/L ABG O2 Saturation (94-97) % Chloride (98-107) mmol/L Carbon Dioxide (22-30) mmol/L BUN (7-17) mg/dL Creatinine (0.52-1.04) mg/dL Glucose (74-99) mg/dL POC Glucose (mg/dL) 214 H (75-99) mg/dL Calcium (8.4-10.2) mg/dL Magnesium (1.6-2.3) mg/dL Albumin (3.5-5.0) g/dL Microbiology - Last 24 Hours (Table) 09/10/19 20:15 Urine Culture - Final Urine,Voided 09/11/19 17:05 Gram Stain - Preliminary Peritoneal Fluid Body Fluid Culture - Preliminary 09/11/19 00:37 Gram Stain - Preliminary Sputum Sputum Culture - Preliminary Assessment and Plan Plan: -Ascending colon mass, per coloscopy, is post resection. Abdominal metastasis. Postoperative day 2. Follow-up biopsy report.biopsy from colonoscopy showed tubular villous adenoma -Postoperative ventilator-dependent respiratory failure expected.presently extubated.current to monitor in ICU for 1 more night -New onset Atrial fibrillation with controlled rate. 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
[2019-09-12] MEDS: 1: MVI, ADULT NO.4 WITH VIT K 10 ML, TRACE (CONC-1ML/DOSE) 1 ML, PARENTERAL ELECTROLYTES IV SCH ×4 (15:51)
[2019-09-12 16:02] LABS: Glucose,Whole Blood 211 mg/dL (75-99)
[2019-09-12] MEDS ORDERED: INSULIN REGULAR BOLUS (FROM DRIP BAG) IV PRN (16:10)
[2019-09-12] MEDS: INSULIN REGULAR 100 UNIT in SODIUM CHLORIDE 0.9% 100 ML IV SCH (17:08)
[2019-09-12 17:18] LABS: Glucose,Whole Blood 201 mg/dL (75-99)
--- NOTE | 2019-09-12 17:58 | CONS ---
CONSULTATION REASON FOR CONSULT: Renal failure. HISTORY OF PRESENT ILLNESS: Patient is an 89-year-old female who was initially admitted to the hospital for a GI bleed. Colonoscopy showed evidence of a colonic mass for which surgery was consulted and patient is status post explorative laparotomy with lysis of adhesions with extensive right hemicolectomy, resection of colonic tumor, small-bowel resection and repair of incisional hernia on 09/10/2019. The patient is currently on the vent. She does have a history of CHF, however, EF of about 55% in May of this year. Serum creatinine was about 1.79 on initial admission on 09/05/2019. It did go down to about 1.5 and now it is up to 2.0. Review of previous labs shows a creatinine as low as 1.29 on 05/25/2019. Currently patient is maintained on Lasix drip at 10 mg an hour. Urine output is well maintained at about 50-60 mL/hour as well as sometimes 100 mL an hour. Patient is currently on the vent. FiO2 is at 35%. There are plans for possible extubation. PAST MEDICAL HISTORY: Significant for atrial fibrillation, coronary artery disease, diastolic heart failure, history of PE, CHF, hypertension, osteoarthritis, obstructive sleep apnea. Chronic back pain, skin cancer, ovarian cyst, macular degeneration, glaucoma, diverticulitis, carpal tunnel syndrome. PAST SURGICAL HISTORY: Appendectomy, bowel resection previously, breast surgery, cardiac valve replacement which was aortic valve, its a tissue valve with coronary artery bypass surgery, cholecystectomy, hysterectomy, pacemaker placement, tonsillectomy, previous colonoscopy, removal of skin cancer. SOCIAL HISTORY: Positive for patient being a former smoker. No history of drug abuse or alcohol abuse. MEDICATIONS: Medications prior to admission included insulin, Synthroid, Coreg, allopurinol, Lasix, potassium, Aldactone, Aleve, meclizine, sodium bicarb. ALLERGIES: INCLUDE ASPIRIN, BEE POLLEN, CELEBREX, URIC ACID, REDUCERS, BLOOD THINNERS, DETAILS NOT AVAILABLE. REVIEW OF SYSTEMS: As per HPI. Other systems negative. EXAMINATION: Patient is currently comfortable. She is awake. She remains on the vent. Blood pressure this morning was 122/41, heart rate of 71 per minute. Patient is afebrile. Examination of the heart S1, S2. Examination of the lungs, bilateral breath sounds are heard. ABDOMEN: Soft, nontender. Wound VAC is present. Examination of lower extremities shows no significant edema. CHECK EXAMINER exam cannot be performed in detail. LABS SHOW: Hemoglobin 8.4, sodium 138, potassium 4.2, chloride 114. CO2 is 19, BUN 42, creatinine 2.08, albumin 2.1. UA shows 1+ protein, moderate blood, RBCs more than 182. WBCs 164. ASSESSMENT: 1. Acute kidney injury, acute tubular necrosis, ischemic acute tubular necrosis, currently nonoliguric. I will discontinue the Lasix drip. We can maintain the patient on IV push Lasix. She does not appear to be in significant volume overload. We will repeat labs in a.m. and repeat a chest x-ray in a.m. as well. 2. Status post resection of colonic mass with small-bowel resection as well, with explorative laparotomy and lysis of adhesions on 09/10/2019. 3. Hypoxic respiratory failure currently on the vent with plans for possible extubation today. 4. Hypertension. 5. Coronary artery disease. 6. Status post aortic valve replacement with tissue valve. 7. Metabolic acidosis, currently maintained on bicarb IV. 8. Anemia with no active bleeding noted. PLAN: Discontinue Lasix drip. Maintain Lasix 40 mg q.12 hours. Repeat labs in a.m. Repeat chest x-ray in a.m. Patient's iron saturation was only 5% on 09/06/2019. We will add IV iron if she has not received any IV iron recently. Continue with the sodium bicarb drip for now. Avoid any nephrotoxic agents. Thank you for this consultation. We will continue to follow the patient with you during her hospitalization. MMODL / IJN: [id number] /
[2019-09-12 18:06] LABS: Glucose,Whole Blood 213 mg/dL (75-99)
--- NOTE | 2019-09-12 18:50 | P.PN ---
Progress Note - Text Progress Note Date: 09/12/19 Patient seen and reevaluated this evening. She has been extubated. She is started on clears. Intraoperative events and findings were described. Patient overall happy with level of care.
[2019-09-12 19:19] LABS: Glucose,Whole Blood 166 mg/dL (75-99)
[2019-09-12] MEDS: FUROSEMIDE 10 MG/ML 4 ML VIAL IV SCH (20:20)
[2019-09-12 20:25] LABS: Glucose,Whole Blood 177 mg/dL (75-99)
[2019-09-12 21:48] LABS: Glucose,Whole Blood 185 mg/dL (75-99)
[2019-09-12 22:20] LABS: Glucose,Whole Blood 186 mg/dL (75-99)
--- NOTE | 2019-09-12 23:16 | P.CONS ---
History of Present Illness - Reason for Consult Consult date: 09/12/19 Antibiotic managment Requesting physician: Kassie Parkinson - Chief Complaint bleeding per rectum x 1 day - History of Present Illness Patient is 89-year female presenting to the ER at [facility] on 09/05/2019 for evaluation of bleeding per rectum and feeling very weak apparently a week prior to that the patient was diagnosed with a abdominal tumor subsequently patient has been evaluated by surgical team and the patient was taken to the OR on 09/10/2019 patient is a status post exploratory laparotomy with lysis of addition right hemicolectomy resection of transverse mesocolon small bowel resection and repair of incisional area with subsequent placement of incisional wound VAC system this patient has been afebrile except she did have a low-grade fever 100.3 on 09/12/19 but no fever has been recorded since then patient did have a normal white count initially subsequently has been running a white count has been elevated to 16.1 and was up to 25.8 yesterday patient has been started on Zosyn I was asked to see the patient regarding further m anagement of her antibiotic patient has a time of elevation this afternoon has been extubated and has been breathing comfortably patient has been complaining of some dryness in the nose but denies having any chest pain or shortness of breath occasional cough currently denies any abdominal pain no nausea no vomiting or any diarrhea. Review of Systems Positive point has been mentioned in HPI rest of the systems are negative Past Medical History Past Medical History: Atrial Fibrillation, Coronary Artery Disease (CAD), Cancer, Heart Failure, Diabetes Mellitus, GI Bleed, Hypertension, Osteoarthritis (OA), Pneumonia, Pulmonary Embolus (PE), Sleep Apnea/CPAP/BIPAP, Thyroid Disorder Additional Past Medical History / Comment(s): gout, chronic pain in back hip and leg, diverticulitis, LT EYE BLIND,GLAUCOMA, MAC DEGENERATION RT EYE, MURMUR, DIVERTICULAR DX.OVARIAN CYSTS,SKIN CA,ANEMIA, TRACHEBRONCHITIS WITH REACTIVE BRONCHOSPASM.used to use cpap machine . Increased shortness of breath with activity and at rest. ARACELI CARPAL TUNNEL. abd cncer History of Any Multi-Drug Resistant Organisms: None Reported Past Surgical History: Appendectomy, Bowel Resection, Breast Surgery, Cardiac Valve Replacement, Cholecystectomy, Coronary Bypass/CABG, Heart Catheterization, Hysterectomy, Orthopedic Surgery, Pacemaker, Tonsillectomy Additional Past Surgical History / Comment(s): pacemaker, AORTIC VALVE REPLACEMENT(TISSUE) AND 1 VESSEL BYPASS, CYST REMOVED FROM HAND/HEAD,BOWEL RESECTION D/T DIVERTICULITIS.KRISTYN FILTER, COLONOCOSPY/POLYPECTOMY/EGD, PAST LT EYE SX-DAMAGED THE OPTIC NERVE-BLIND LT EYE.lt knee arthrosopy, skin cancer removed from hand/head/back Past Anesthesia/Blood Transfusion Reactions: No Reported Reaction Type of Cardiac Device: Permanent Pacemaker Device Placement Date:: 2010 Past Psychological History: Depression Additional Psychological History / Comment(s): history of depression, denies now Smoking Status: Former smoker Past Alcohol Use History: None Reported Additional Past Alcohol Use History / Comment(s): STARTED SMOKING 1979 1-2 ppd, quit 2001, no alcohol now Past Drug Use History: None Reported - Past Family History Brother(s) History Unknown: Yes Father Family Medical History: Cancer Additional Family Medical History / Comment(s): ALCOHOLIC-- 1969 Mother Family Medical History: Cancer, Coronary Artery Disease (CAD), Dementia, Diabetes Mellitus Additional Family Medical History / Comment(s): 1984 Medications and Allergies Home Medications Medication Instructions Recorded Confirmed Type Carvedilol [Coreg] 3.125 mg PO BID 03/25/14 09/05/19 History Allopurinol 100 mg PO BID 03/07/15 09/05/19 History Levothyroxine Sodium [Synthroid] 75 mcg PO DAILY 11/03/17 09/05/19 History Insulin Lispro [humaLOG Kwikpen] 5 unit SQ AC-BID 12/29/17 09/05/19 History Furosemide [Lasix] 80 mg PO BID 05/21/19 09/05/19 History Insulin Detemir (Levemir) [Levemir] 20 unit SQ AC-BRKFST 05/21/19 09/05/19 History Potassium Chloride ER [K-Dur 10] 10 meq PO BID 05/21/19 09/05/19 History Spironolactone [Aldactone] 25 mg PO BID 05/21/19 09/05/19 History Meclizine HCl 12.5 mg PO TID PRN 09/05/19 09/05/19 History Naproxen Sodium [Aleve] 440 mg PO Q12HR PRN 09/05/19 09/05/19 History Sodium Bicarbonate Tab 650 mg PO BID 09/05/19 09/05/19 History Allergies Allergy/AdvReac Type Severity Reaction Status Date / Time aspirin Allergy Unknown Verified 09/05/19 16:01 bee pollen [Bee Pollen] Allergy Anaphylaxis Verified 09/05/19 16:01 celecoxib [From Celebrex] Allergy Unknown Verified 09/05/19 16:01 blood thinners AdvReac Severe see comment Uncoded 09/05/19 13:51 URIC ACIDS AdvReac GOUT Uncoded 09/05/19 13:51 Physical Exam Vitals: Vital Signs Temp Pulse Resp BP Pulse Ox 09/12/19 12:00 98.8 F 72 12 117/47 98 09/12/19 11:45 79 10 L 99 09/12/19 11:30 71 16 99 09/12/19 11:15 72 12 98 09/12/19 11:00 70 15 98/40 98 09/12/19 10:45 71 16 98 09/12/19 10:30 67 15 98 09/12/19 10:15 68 22 99 09/12/19 10:00 67 22 99 09/12/19 09:45 66 20 99 09/12/19 09:30 66 20 99 09/12/19 09:15 67 20 99 09/12/19 09:00 66 22 116/49 98 09/12/19 08:45 68 23 98 09/12/19 08:30 67 21 99 09/12/19 08:15 65 36 H 98 09/12/19 08:00 98.2 F 60 18 118/50 98 09/12/19 07:45 62 18 98 09/12/19 07:30 73 18 98 09/12/19 07:15 78 18 98 09/12/19 07:00 80 18 113/58 98 09/12/19 06:45 79 18 98 09/12/19 06:30 78 18 98 09/12/19 06:15 63 18 98 09/12/19 06:00 70 18 113/47 98 09/12/19 05:45 69 18 98 09/12/19 05:30 70 18 98 09/12/19 05:15 70 18 98 09/12/19 05:00 70 18 98 09/12/19 04:45 69 18 98 09/12/19 04:30 18 96 09/12/19 04:15 72 18 98 09/12/19 04:00 100.3 F H 71 18 115/48 99 09/12/19 03:45 75 18 99 09/12/19 03:30 71 18 99 09/12/19 03:15 69 18 99 09/12/19 03:00 69 19 116/51 99 09/12/19 02:45 71 18 99 09/12/19 02:30 70 18 99 09/12/19 02:15 69 20 99 09/12/19 02:00 79 18 127/53 97 09/12/19 01:45 80 24 98 09/12/19 01:30 71 18 99 09/12/19 01:15 68 21 98 09/12/19 01:00 71 10 L 130/53 09/12/19 00:45 71 18 98 09/12/19 00:30 71 18 98 09/12/19 00:15 80 19 98 09/12/19 00:00 100.3 F H 73 18 135/55 97 09/11/19 23:45 73 99 09/11/19 23:30 72 18 135/55 98 09/11/19 23:15 72 18 99 09/11/19 23:00 74 18 123/52 98 09/11/19 22:45 79 18 98 09/11/19 22:30 84 18 98 09/11/19 22:15 84 18 98 09/11/19 22:00 75 18 121/54 98 09/11/19 21:45 76 18 98 09/11/19 21:30 78 18 98 09/11/19 21:15 75 121/54 98 09/11/19 21:00 75 122/49 98 09/11/19 20:45 81 18 98 09/11/19 20:30 90 18 98 09/11/19 20:15 97 18 122/49 97 09/11/19 20:00 98.8 F 90 18 119/49 98 09/11/19 19:45 90 18 98 09/11/19 19:30 92 18 98 09/11/19 19:15 93 19 98 09/11/19 19:00 96 18 127/54 98 09/11/19 18:45 97 20 98 09/11/19 18:30 97 20 98 09/11/19 18:15 101 H 20 97 09/11/19 18:00 93 21 98 09/11/19 17:45 96 20 98 09/11/19 17:30 96 20 98 09/11/19 17:15 97 22 97 09/11/19 17:00 96 24 126/54 98 09/11/19 16:45 100 24 97 09/11/19 16:30 100 20 97 09/11/19 16:15 100 20 97 09/11/19 16:00 98.9 F 101 H 20 113/49 97 09/11/19 15:45 101 H 22 97 09/11/19 15:30 98 24 97 09/11/19 15:15 96 18 97 09/11/19 15:00 101 H 20 118/50 97 09/11/19 14:45 100 25 H 97 09/11/19 14:30 102 H 18 96 09/11/19 14:15 102 H 18 97 09/11/19 14:00 104 H 18 119/49 97 09/11/19 13:45 98 18 119/49 96 09/11/19 13:30 103 H 18 119/49 97 09/11/19 13:15 102 H 18 119/49 97 09/11/19 13:00 103 H 20 108/44 96 09/11/19 12:45 97 18 97 09/11/19 12:30 93 10 L 96 09/11/19 12:15 95 18 97 Intake and Output 09/11/19 09/12/19 09/12/19 22:59 06:59 14:59 Intake Total 5847.922 7600.948 905.427 Output Total 568 750 435 Balance 478.142 596.948 470.427 Intake: IV 710 972 756 Dextrose 5% in Water 1, 400 400 300 000 ml @ 50 mls/hr IV . Q23H IRENE with Sodium Bicarb (1 Meq/ml) 150 ml Rx#:[id number] LR @20ml/hr 160 160 120 Mvi, Adult No.4 with Vit 150 400 300 K 10 ml Trace (Conc-1Ml/ Dose) 1 ml Parenteral Electrolytes 20 ml In Amino Acid 4.25%-D10w 1, 000 ml @ 50 mls/hr IV . [id number] IRENE Rx#:[id number] pressure bag 12 36 Intake, IV Titration 336.142 374.948 149.427 Amount Furosemide 100 mg In 83.667 95.833 Sodium Chloride 0.9% 90 ml @ 10 MG/HR 10 mls/hr IV .Q10H IRENE Rx#: [id number] Norepinephrine 8 mg In 152.475 201.010 113.300 Sodium Chloride 0.9% 250 ml @ 0.05 MCG/KG/MIN 7. 904 mls/hr IV .Q24H IRENE Rx#:[id number] Propofol 1,000 mg In 100 78.105 36.127 Empty Bag 1 bag @ Titrate IV .Q0M RIENE Rx#: [id number] Output: Drainage 110 280 Left Lower Abdomen 110 280 Urine 458 470 435 Other: Voiding Method Indwelling Catheter Indwelling Catheter Indwelling Catheter Weight 85.8 kg 85.9 kg 85.9 kg ABP, PAP, CO, CI - Last 8 Hours Arterial Blood Pressure 122/41 Arterial Blood Pressure 124/42 Arterial Blood Pressure 117/38 Arterial Blood Pressure 124/41 Arterial Blood Pressure 115/38 Arterial Blood Pressure 128/42 Arterial Blood Pressure 139/46 Arterial Blood Pressure 123/39 Arterial Blood Pressure 87/31 Arterial Blood Pressure 119/39 Arterial Blood Pressure 122/40 Arterial Blood Pressure 117/38 Arterial Blood Pressure 117/39 Arterial Blood Pressure 112/37 Arterial Blood Pressure 102/38 Arterial Blood Pressure 125/44 Arterial Blood Pressure 119/40 Arterial Blood Pressure 116/40 Arterial Blood Pressure 118/42 Arterial Blood Pressure 119/44 Arterial Blood Pressure 122/45 Arterial Blood Pressure 115/42 Arterial Blood Pressure 111/42 Arterial Blood Pressure 122/42 Arterial Blood Pressure 123/47 Arterial Blood Pressure 115/44 Arterial Blood Pressure 128/47 Arterial Blood Pressure 125/47 Arterial Blood Pressure 120/46 Arterial Blood Pressure 124/47 Arterial Blood Pressure 113/48 Arterial Blood Pressure 125/48 GENERAL DESCRIPTION: Elderly female lying in bed, no distress. No tachypnea or accessory muscle of respiration use. HEENT: Shows Pallor , no scleral icterus. Oral mucous membrane is dry. NECK: Trachea central, no thyromegaly. LUNGS: Unlabored breathing. Decreased breath sound at bases. No wheeze or crackle. HEART: S1, S2, regular rate and rhythm. ABDOMEN: Soft, abdominal incision is covered with the wound VAC ,no tenderness , guarding or rigidity EXTREMITIES: No edema of feet. SKIN: No rash, no masses palpable. NEUROLOGICAL: The patient is awake, alert, oriented x2, mood and affect normal. Results CBC & Chem 7: 09/12/19 04:35 09/12/19 04:35 Labs: Abnormal Lab Results - Last 24 Hours (Table) 09/11/19 09/11/19 09/12/19 Range/Units 19:12 23:58 04:05 WBC (3.8-10.6) k/uL RBC (3.80-5.40) m/uL Hgb (11.4-16.0) gm/dL Hct (34.0-46.0) % MCHC (31.0-37.0) g/dL RDW (11.5-15.5) % Neutrophils # (1.3-7.7) k/uL Monocytes # (0-1.0) k/uL ABG pCO2 33 L (35-45) mmHg ABG pO2 142 H (83-108) mmHg ABG HCO3 19 L (21-25) mmol/L ABG O2 Saturation 99.9 H (94-97) % Chloride (98-107) mmol/L Carbon Dioxide (22-30) mmol/L BUN (7-17) mg/dL Creatinine (0.52-1.04) mg/dL Glucose (74-99) mg/dL POC Glucose (mg/dL) 187 H 215 H (75-99) mg/dL Calcium (8.4-10.2) mg/dL Magnesium (1.6-2.3) mg/dL Albumin (3.5-5.0) g/dL 09/12/19 09/12/19 09/12/19 Range/Units 04:35 04:35 05:53 WBC 18.8 H (3.8-10.6) k/uL RBC 2.85 L (3.80-5.40) m/uL Hgb 8.4 L (11.4-16.0) gm/dL Hct 27.6 L (34.0-46.0) % MCHC 30.5 L (31.0-37.0) g/dL RDW 19.2 H (11.5-15.5) % Neutrophils # 14.7 H (1.3-7.7) k/uL Monocytes # 1.5 H (0-1.0) k/uL ABG pCO2 (35-45) mmHg ABG pO2 (83-108) mmHg ABG HCO3 (21-25) mmol/L ABG O2 Saturation (94-97) % Chloride 114 H (98-107) mmol/L Carbon Dioxide 19 L (22-30) mmol/L BUN 42 H (7-17) mg/dL Creatinine 2.08 H (0.52-1.04) mg/dL Glucose 198 H (74-99) mg/dL POC Glucose (mg/dL) 231 H (75-99) mg/dL Calcium 8.1 L (8.4-10.2) mg/dL Magnesium 2.4 H (1.6-2.3) mg/dL Albumin 2.1 L (3.5-5.0) g/dL 09/12/19 Range/Units 11:50 WBC (3.8-10.6) k/uL RBC (3.80-5.40) m/uL Hgb (11.4-16.0) gm/dL Hct (34.0-46.0) % MCHC (31.0-37.0) g/dL RDW (11.5-15.5) % Neutrophils # (1.3-7.7) k/uL Monocytes # (0-1.0) k/uL ABG pCO2 (35-45) mmHg ABG pO2 (83-108) mmHg ABG HCO3 (21-25) mmol/L ABG O2 Saturation (94-97) % Chloride (98-107) mmol/L Carbon Dioxide (22-30) mmol/L BUN (7-17) mg/dL Creatinine (0.52-1.04) mg/dL Glucose (74-99) mg/dL POC Glucose (mg/dL) 214 H (75-99) mg/dL Calcium (8.4-10.2) mg/dL Magnesium (1.6-2.3) mg/dL Albumin (3.5-5.0) g/dL Microbiology - Last 24 Hours (Table) 09/11/19 17:05 Gram Stain - Preliminary Peritoneal Fluid Body Fluid Culture - Preliminary 09/11/19 00:37 Gram Stain - Preliminary Sputum Sputum Culture - Preliminary 09/10/19 20:15 Urine Culture - Preliminary Urine,Voided Assessment and Plan Assessment: 1-patient with leukocytosis which is more likely reactive in this patient who is status post extensive laparotomy resection of large and small bowel for right- sided colon tumor as there was no mention of any perforation in the operative report and patient currently has not been running any high-grade fever and no other clinical focus of infection (1) Leukocytosis Current Visit: Yes Status: Acute Code(s): D72.829 - ELEVATED WHITE BLOOD CELL COUNT, UNSPECIFIED SNOMED Code(s): 946572170 Plan: 1-Zosyn 3.375 g every 8 hour to continue 2-gentle IV fluid We will follow on clinical condition and cultures to further adjust medication if needed Thank you for this consultation we will follow the patient along with you Time with Patient: Greater than 30
[2019-09-12 23:28] LABS: Glucose,Whole Blood 156 mg/dL (75-99)
[2019-09-13] MEDS: IPRATROPIUM-ALBUTEROL 3 ML NEB INHALATION SCH ×6 (00:01→19:18)
[2019-09-13 00:17] LABS: Glucose,Whole Blood 176 mg/dL (75-99)
[2019-09-13 01:24] LABS: Glucose,Whole Blood 176 mg/dL (75-99)
[2019-09-13 02:27] LABS: Glucose,Whole Blood 174 mg/dL (75-99)
[2019-09-13 03:10] LABS: Glucose,Whole Blood 176 mg/dL (75-99)
[2019-09-13 04:34] LABS: Anisocytosis Slight; HCT 23.4 % (34.0-46.0); HGB 7.3 gm/dL (11.4-16.0); Hypochromasia Marked; MCH 29.9 pg (25.0-35.0); MCV 96.6 fL (80.0-100.0); Macrocytosis Slight; Mean Platelet Volume 10.6; Platelet Count 149 k/uL (150-450); Poikilocytosis Moderate; RBC 2.42 m/uL (3.80-5.40); RDW 18.4 % (11.5-15.5); WBC 11.5 k/uL (3.8-10.6)
[2019-09-13 05:00] LABS: Magnesium 2.2 mg/dL (1.6-2.3); Phosphorus 2.1 mg/dL (2.5-4.5); Potassium 3.3 mmol/L (3.5-5.1)
[2019-09-13] MEDS: 1: MVI, ADULT NO.4 WITH VIT K 10 ML, TRACE (CONC-1ML/DOSE) 1 ML, PARENTERAL ELECTROLYTES IV SCH ×8 (05:09→20:17)
[2019-09-13] MEDS: PIPERACILLIN-TAZOBACTAM 3.375 GM in SODIUM CHLORIDE 0.9% 100 ML IVPB SCH ×2 (05:10→17:03)
[2019-09-13 05:16] LABS: Glucose,Whole Blood 174 mg/dL (75-99)
[2019-09-13] MEDS ORDERED: POTASSIUM PHOSPHATE 10 MMOL in SODIUM CHLORIDE 0.9% 250 ML IV ONE (05:45)
[2019-09-13] MEDS: POTASSIUM CHLORIDE ER 20 MEQ TAB.ER PO SCH ×2 (06:12→08:11)
[2019-09-13] MEDS: NOREPINEPHRINE 8 MG in SODIUM CHLORIDE 0.9% 250 ML IV SCH (06:15)
[2019-09-13 06:57] LABS: Glucose,Whole Blood 156 mg/dL (75-99)
--- NOTE | 2019-09-13 08:07 | XR ---
EXAMINATION TYPE: XR chest 1V portable DATE OF EXAM: 09/13/2019 COMPARISON: 09/12/2019 HISTORY: Shortness of breath FINDINGS: There are bilateral pleural effusions with cardiomegaly and bibasilar infiltrate. There is a diffuse interstitial pattern. Postoperative change, cardiac device and central line noted. Underlying COPD s uspected. ET and NG tube have been removed. IMPRESSION: 1. Stable pleural-parenchymal changes correlate for CHF. Underlying pneumonia not excluded.
[2019-09-13] MEDS: CHLORHEXIDINE GLUCONATE 15 ML CUP MUCOUS MEM SCH ×2 (08:10→20:03)
[2019-09-13] MEDS: FUROSEMIDE 10 MG/ML 4 ML VIAL IV SCH ×2 (08:11→20:16)
[2019-09-13] MEDS: HEPARIN SODIUM,PORCINE 5,000 UNIT/ML 1 ML VIAL SQ SCH ×2 (08:11→20:16)
[2019-09-13] MEDS: PANTOPRAZOLE 40 MG/10 ML VIAL IV SCH (08:11)
[2019-09-13] MEDS: LEVOTHYROXINE IVP 100 MCG/5 ML VIAL IV SCH (08:12)
[2019-09-13] MEDS: metroNIDAZOLE-NS PMX 500 MG in SALINE 1 100ML.BAG IVPB SCH ×2 (08:12→16:17)
[2019-09-13 08:23] LABS: Glucose,Whole Blood 176 mg/dL (75-99)
[2019-09-13] MEDS: SODIUM BICARBONATE TAB 650 MG TAB PO SCH (08:27)
--- NOTE | 2019-09-13 10:14 | PN ---
PROGRESS NOTE PULMONARY/CRITICAL CARE PROGRESS NOTE: DATE OF SERVICE: 09/13/2019 CRITICAL CARE TIME: 35 minutes This is an 89-year-old female who was admitted to the hospital on September 05. She came in with a diagnosis of GI bleeding and colon cancer. She apparently was intubated on September 10 which is when she went to the operating room. She had exploratory laparotomy, lysis of adhesions, right hemicolectomy, transverse colon resection, hernia repair, and small-bowel resection. She did not require a colostomy. She was transferred back to the ICU. She has been on the ventilator since 09/10. Yesterday, we decided to do a daily interruption of sedation. The patient woke up well. She had excellent weaning parameters. We did a spontaneous breathing trial on PSV 5, CPAP of 5. She had a positive cuff leak. For that reason, the patient was extubated. Her extubation was successful. She was extubated on September 12. Currently, the patient is on 3 L of nasal cannula, D5W with 3 amps of bicarbonate at 50 mL an hour, insulin drip at 3.5 units an hour, TPN at 65 mL an hour and Levophed at about 2 mcg/minute. Her IV is 0.9 at 20 mL an hour. Will see if we cannot come off the norepinephrine. Currently, the patient seems to be doing relatively well. She is awake and alert. She is talkative. She is taking some clear liquids. We did encourage her to use the incentive spirometer q.1 hour and also take deep breaths, cough and clear secretions. She had a pretty uneventful night according to her nurse. Current vital signs are reviewed. Temperature 98.1, heart rate 85, respiratory rate 16, blood pressure 109/45 mean 66, 3 L saturation 98%. Appears in no acute distress. HEENT: Examination is grossly unremarkable. Mucous membranes are moist. No oral lesions. NECK: Supple. Full range of motion. No adenopathy or thyromegaly. Neck veins are flat. CARDIOVASCULAR: Examination reveals regular rhythm and rate. S1, S2 normal. No S3, S4, or murmur. Heart sounds are distant. LUNGS: Reveal a few scattered rhonchi. No wheezes or crackles. Breath sounds equal. ABDOMEN: Soft. No bowel sounds are noted. A midline incision is covered with a bandage. EXTREMITIES: Intact. No edema. SKIN: Without rash. NEUROLOGIC: Examination is brief but nonfocal. LABS: Reviewed. White count 11.5, hemoglobin 7.3, hematocrit 23.4, platelet count 149,000. Sodium 139, potassium 3.3, chloride is 110, CO2 is 24, anion gap is 5. BUN and creatinine were 43 and 1.63. Phosphorus 2.1, calcium 8. Microbiology including a peritoneal fluid, sputum and urine are all negative. A chest x-ray from today is reviewed. It shows a pacemaker device. The left lung is clear except for a very small amount of atelectasis or effusion at the right lung base. On the right side, the effusions is a little bit larger with some basilar atelectasis. Upper lung nicolas appear clear. MEDICATIONS: Reviewed. ASSESSMENT: 1. Postoperative day #3, status post exploratory laparotomy with lysis of adhesions, right hemicolectomy, transverse colon resection, hernia repair, small-bowel resection, and lysis of adhesions with placement of a Prevena wound VAC. 2. Postoperative respiratory failure with routine postoperative ventilator management, and successful extubation on September 12. 3. Colon cancer. 4. Gastrointestinal bleed. 5. Chronic iron deficiency anemia. 6. History of colon resection. 7. Ischemic cardiomyopathy. 8. Diastolic heart failure. 9. History of atrial fibrillation. 10.History of pulmonary embolism, status post Briseyda filter placement. 11.Sleep apnea syndrome. 12.Type 2 diabetes mellitus with diabetic neuropathy. 13.History of hypertensive heart disease. 14.History of bypass grafting. 15.History of aortic valve replacement. 16.Depression. 17.Gout. 18.Status post permanent pacemaker. 19.Hypothyroidism. 20.Colon cancer involving the transverse colon. PLAN: The patient was successfully extubated yesterday. She remains on her IV of D5W with 3 amps of bicarb at 50 mL an hour, insulin drip at 3.5 units an hour and TPN at 65 mL an hour. The norepinephrine can likely be turned off today. We encourage deep breathing, coughing, clearing of secretions and hourly use of incentive spirometer. Her medication list will be reviewed. Overall prognosis remains guarded. She is a DNR. I spoke to her grandson's yesterday. She understands that her overall prognosis remains very guarded at this time. Will continue to follow. Continue to encourage deep breathing as mentioned above. CRITICAL CARE TIME: 35 minutes. MMODL / IJN: [id number] /
[2019-09-13 10:16] LABS: Glucose,Whole Blood 199 mg/dL (75-99)
--- NOTE | 2019-09-13 10:22 | P.PN ---
Progress Note - Text 09/13 652am 89-year-old female status post exploratory lap by Dr. Parkinson. Patient is still in the ICU awake and alert, hemodynamically stable, epidural solution running at 1.5 mL/h. She has a VAS of 1 no motor or sensory deficit noted. Plan to DC epidural catheter and the nurse was informed
[2019-09-13 12:12] LABS: Glucose,Whole Blood 181 mg/dL (75-99)
[2019-09-13] MEDS: INSULIN REGULAR 100 UNIT in SODIUM CHLORIDE 0.9% 100 ML IV SCH (12:21)
[2019-09-13] MEDS ORDERED: IPRATROPIUM-ALBUTEROL 3 ML NEB INHALATION PRN (12:52)
--- NOTE | 2019-09-13 13:48 | PN ---
PROGRESS NOTE DATE OF SERVICE: 09/13/2019. REASON FOR FOLLOWUP: Leukocytosis in patient extensive abdominal infection. INTERVAL HISTORY: The patient is currently afebrile. The patient is awake and alert. The patient is breathing comfortably. Denies having any chest pain. Occasional cough. No nausea or vomiting. Denies any worsening abdominal pain. No bowel movement. PHYSICAL EXAMINATION: Blood pressure 118/39 with a pulse of 84, temperature 98. She is 96% on 2 L nasal cannula. General description is an elderly female lying in bed in no distress. RESPIRATORY SYSTEM: Unlabored breathing, clear to auscultation anteriorly. HEART: S1, S2. Regular rate and rhythm. ABDOMEN: Soft, mildly distended and tender. EXTREMITIES: No edema of the feet. LABS: Hemoglobin 7.3, white count down to 11.5. BUN of 43, creatinine 1.6. DIAGNOSTIC IMPRESSION AND PLAN: Patient with leukocytosis, more likely reactive. This patient did have extensive abdominal surgery requiring right hemicolectomy and resection of bowel. So far abdominal culture has been pending. She is on Zosyn and white count has normalized. We will keep the patient on Zosyn and monitor clinical course closely. Continue with supportive care. MMODL / IJN: [id number] / MTDJuan
[2019-09-13 14:16] LABS: Glucose,Whole Blood 208 mg/dL (75-99)
[2019-09-13] MEDS ORDERED: Potassium Replacement Protocol 1 EACH MISC MISCELLANE PRN (15:54)
[2019-09-13 16:13] LABS: Glucose,Whole Blood 203 mg/dL (75-99)
[2019-09-13] MEDS: POTASSIUM CHLORIDE 10 MEQ in WATER FOR INJECTION 1 100ML.BAG IVPB SCH ×2 (16:17→17:39)
--- NOTE | 2019-09-13 18:09 | PN ---
PROGRESS NOTE The patient is seen for followup for acute kidney injury. The patient was extubated yesterday. She is doing fairly well. Currently she is maintained on Lasix 40 mg IV q.12 hours. Urine output has been 75-100 mL an hour. Blood pressure is not significantly low. The patient remains on bicarb drip at 50 mL an hour. She is off Levophed. She is maintained on TPN. PHYSICAL EXAMINATION: On examination today, blood pressure was 124/36, heart rate of 93 per minute, patient is afebrile. Examination of the heart S1, S2. Examination of the lungs, decreased breath sounds at bases. Abdomen is soft, nontender. Examination of lower extremities shows edema 1+ bilaterally. RESPIRATORY ASSISTANT exam grossly intact. A wound VAC is present in the abdomen. LABS SHOW: Sodium 139, potassium 3.3, chloride 110, BUN 43, creatinine 1.63, phosphorus 2.1, hemoglobin 7.3 g/dL. ASSESSMENT: 1. Acute kidney injury, acute tubular necrosis currently improved from yesterday. Continue with the current dose of IV Lasix. The patient has good urine output. Chest x-ray continues to show infiltrates suggestive of congestive heart failure . At this time, patient is fairly comfortable. Therefore, I will continue with the same dose of Lasix. We will repeat chest x-ray in a.m. 2. Status post explorative laparotomy with lysis of adhesions, extensive right hemicolectomy, takedown of hernia, small-bowel resection and repair of incisional hernia. 3. History of congestive heart failure, ejection fraction about 55%. 4. Hypoxic respiratory failure status post extubation. 5. Coronary artery disease. 6. 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 7. Metabolic acidosis, currently maintained on IV bicarb as well as oral bicarb. PLAN: 1. DC IV bicarb. 2. Continue TPN. 3. Continue with current dose of Lasix. 4. Replace potassium. 5. Repeat labs and chest x-ray in a.m. MMODL / IJN: [id number] /
[2019-09-13 18:10] LABS: Glucose,Whole Blood 178 mg/dL (75-99)
[2019-09-13 20:10] LABS: Glucose,Whole Blood 175 mg/dL (75-99)
[2019-09-13] MEDS: 1: MVI, ADULT NO.4 WITH VIT K 10 ML, TRACE (CONC-1ML/DOSE) 1 ML in AMINO ACID 4.25%-D10W IV SCH ×3 (20:17)
--- NOTE | 2019-09-13 20:47 | P.PN ---
Subjective Progress Note Date: 09/13/19 CHIEF COMPLAINT: Large colon mass with bleeding HISTORY OF PRESENT ILLNESS: The patient is a 89-year-old female who underwent exploratory laparotomy with resection of right colon for over 10 cm lesion with invasion into abdominal wall including small bowel resection for small bowel obstruction. She has been extubated since yesterday. She is tolerating liquid diet. No reports of flatus. She is generally weak at this time. Pain is well- controlled. Last night she had fevers low-grade now resolved. ROS: No reports of nausea and vomiting. No flatus or bowel movement PHYSICAL EXAM: VITAL SIGNS: Reviewed CONSTITUTIONAL: Well developed and in no acute distress. EYES: Conjuctivae without sclera icterus. Extraocular movements grossly intact. HEAD, EARS, NOSE, THROAT: Moist buccal mucosa. Head is atraumatic, normocephalic. Hears conversational speech. No nasal drainage. RESPIRATORY: Nonlabored respirations CARDIOVASCULAR: Palpable 2+ radial pulses. ABDOMEN: Soft, no peritonitis. Midline dressing intact with PREVENA. DEEDEE serosanguineous MUSCULOSKELETAL: No gross deformity of the lower extremities noted. No clubbing. No cyanosis. 2+ bilateral lower extremity edema SKIN: Good skin turgor. Well perfused. NEUROLOGIC: Cranial nerves I through XII grossly intact. No focal or lateralizing signs. 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 ASSESSMENT: 1. Ascending colon cancer, recurrent metastatic 2. Severe aortic stenosis PLAN: 1. May advance diet to full liquid. 2. Will likely need extensive rehabilitation. 3. May transfer to the general medical floor from the ICU when clinically stable Objective - Vital Signs Vital signs: Vital Signs Temp 98.4 F 09/13/19 12:00 Pulse 91 09/13/19 18:00 Resp 17 09/13/19 18:00 BP 112/46 09/13/19 15:30 Pulse Ox 94 L 09/13/19 18:00 Intake & Output 09/12/19 09/13/19 09/13/19 18:59 06:59 18:59 Intake Total 3347.350 3582.024 2006.389 Output Total 965 1535 1185 Balance 821.120 336.024 821.389 Weight 85.9 kg 90.8 kg Intake: IV 1542 1692 1192 Dextrose 5% in Water 1, 600 600 100 000 ml @ 50 mls/hr IV . Q23H [facility] with Sodium Bicarb (1 Meq/ml) 150 ml Rx#:[id number] Mvi, Adult No.4 with Vit 630 650 K 10 ml Trace (Conc-1Ml/ Dose) 1 ml Parenteral Electrolytes 20 ml In Amino Acid 4.25%-D10w 1, 000 ml @ 50 mls/hr IV . [id number] [facility] Rx#:[id number] Normal saline 240 240 240 Parenteral Electrolytes 130 780 20 ml In Amino Acid 4.25% -D10w 1,000 ml @ 65 mls/ hr IV .BY DURATION [facility] Rx #:[id number] pressure bag 72 72 72 Intake, IV Titration 244.120 179.024 64.389 Amount Insulin Regular 100 unit 3.367 55.770 32.716 In Sodium Chloride 0.9% 100 ml @ Per Protocol IV .Q0M [facility] Rx#:[id number] Norepinephrine 8 mg In 186.126 123.254 31.673 Sodium Chloride 0.9% 250 ml @ 0.05 MCG/KG/MIN 7. 904 mls/hr IV .Q24H [facility] [place] Rx#:[id number] Propofol 1,000 mg In 36.127 Empty Bag 1 bag @ Titrate IV .Q0M [facility] [place] Rx#: [id number] Ropivacaine 400 mg 18.5 Hydromorphone (Pf) 5 mg In Sodium Chloride 0.9% 170 ml @ Per Protocol EPIDURAL .Q0M [facility] Rx#: [id number] Oral 750 Output: Urine 965 1535 1185 Other: Voiding Method Indwelling Catheter Indwelling Catheter Indwelling Catheter ABP, PAP, CO, CI - Last Documented Arterial Blood Pressure 140/36 - Labs CBC & Chem 7: 09/13/19 04:25 09/13/19 12:15 Labs: Abnormal Lab Results - Last 24 Hours (Table) 09/12/19 09/12/19 09/12/19 Range/Units 19:07 20:14 21:36 WBC (3.8-10.6) k/uL RBC (3.80-5.40) m/uL Hgb (11.4-16.0) gm/dL Hct (34.0-46.0) % RDW (11.5-15.5) % Plt Count (150-450) k/uL Potassium (3.5-5.1) mmol/L Chloride (98-107) mmol/L BUN (7-17) mg/dL Creatinine (0.52-1.04) mg/dL Glucose (74-99) mg/dL POC Glucose (mg/dL) 166 H 177 H 185 H (75-99) mg/dL Calcium (8.4-10.2) mg/dL Phosphorus (2.5-4.5) mg/dL 09/12/19 09/12/19 09/13/19 Range/Units 22:08 23:16 00:04 WBC (3.8-10.6) k/uL RBC (3.80-5.40) m/uL Hgb (11.4-16.0) gm/dL Hct (34.0-46.0) % RDW (11.5-15.5) % Plt Count (150-450) k/uL Potassium (3.5-5.1) mmol/L Chloride (98-107) mmol/L BUN (7-17) mg/dL Creatinine (0.52-1.04) mg/dL Glucose (74-99) mg/dL POC Glucose (mg/dL) 186 H 156 H 176 H (75-99) mg/dL Calcium (8.4-10.2) mg/dL Phosphorus (2.5-4.5) mg/dL 09/13/19 09/13/19 09/13/19 Range/Units 01:11 02:15 02:58 WBC (3.8-10.6) k/uL RBC (3.80-5.40) m/uL Hgb (11.4-16.0) gm/dL Hct (34.0-46.0) % RDW (11.5-15.5) % Plt Count (150-450) k/uL Potassium (3.5-5.1) mmol/L Chloride (98-107) mmol/L BUN (7-17) mg/dL Creatinine (0.52-1.04) mg/dL Glucose (74-99) mg/dL POC Glucose (mg/dL) 176 H 174 H 176 H (75-99) mg/dL Calcium (8.4-10.2) mg/dL Phosphorus (2.5-4.5) mg/dL 09/13/19 09/13/19 09/13/19 Range/Units 04:25 04:25 05:05 WBC 11.5 H (3.8-10.6) k/uL RBC 2.42 L (3.80-5.40) m/uL Hgb 7.3 L (11.4-16.0) gm/dL Hct 23.4 L (34.0-46.0) % RDW 18.4 H (11.5-15.5) % Plt Count 149 L (150-450) k/uL Potassium 3.3 L (3.5-5.1) mmol/L Chloride 110 H (98-107) mmol/L BUN 43 H (7-17) mg/dL Creatinine 1.63 H (0.52-1.04) mg/dL Glucose 164 H (74-99) mg/dL POC Glucose (mg/dL) 174 H (75-99) mg/dL Calcium 8.0 L (8.4-10.2) mg/dL Phosphorus 2.1 L (2.5-4.5) mg/dL 09/13/19 09/13/19 09/13/19 Range/Units 06:45 08:11 10:04 WBC (3.8-10.6) k/uL RBC (3.80-5.40) m/uL Hgb (11.4-16.0) gm/dL Hct (34.0-46.0) % RDW (11.5-15.5) % Plt Count (150-450) k/uL Potassium (3.5-5.1) mmol/L Chloride (98-107) mmol/L BUN (7-17) mg/dL Creatinine (0.52-1.04) mg/dL Glucose (74-99) mg/dL POC Glucose (mg/dL) 156 H 176 H 199 H (75-99) mg/dL Calcium (8.4-10.2) mg/dL Phosphorus (2.5-4.5) mg/dL 09/13/19 09/13/19 09/13/19 Range/Units 12:00 14:05 16:02 WBC (3.8-10.6) k/uL RBC (3.80-5.40) m/uL Hgb (11.4-16.0) gm/dL Hct (34.0-46.0) % RDW (11.5-15.5) % Plt Count (150-450) k/uL Potassium (3.5-5.1) mmol/L Chloride (98-107) mmol/L BUN (7-17) mg/dL Creatinine (0.52-1.04) mg/dL Glucose (74-99) mg/dL POC Glucose (mg/dL) 181 H 208 H 203 H (75-99) mg/dL Calcium (8.4-10.2) mg/dL Phosphorus (2.5-4.5) mg/dL 09/13/19 Range/Units 17:58 WBC (3.8-10.6) k/uL RBC (3.80-5.40) m/uL Hgb (11.4-16.0) gm/dL Hct (34.0-46.0) % RDW (11.5-15.5) % Plt Count (150-450) k/uL Potassium (3.5-5.1) mmol/L Chloride (98-107) mmol/L BUN (7-17) mg/dL Creatinine (0.52-1.04) mg/dL Glucose (74-99) mg/dL POC Glucose (mg/dL) 178 H (75-99) mg/dL Calcium (8.4-10.2) mg/dL Phosphorus (2.5-4.5) mg/dL Microbiology - Last 24 Hours (Table) 09/11/19 17:05 Gram Stain - Preliminary Peritoneal Fluid Body Fluid Culture - Preliminary 09/11/19 00:37 Gram Stain - Final Sputum Sputum Culture - Final Assessment and Plan (1) Abdominal mass Current Visit: Yes Status: Acute Priority: High Code(s): R19.00 - INTRA- ABD AND PELVIC SWELLING, MASS AND LUMP, UNSP SITE SNOMED Code(s): 573258143 (2) GI bleed Current Visit: Yes Status: Acute Priority: High Code(s): K92.2 - GASTROINTESTINAL HEMORRHAGE, UNSPECIFIED SNOMED Code(s): 72206989 (3) History of colon cancer Current Visit: Yes Status: Acute Code(s): Z85.038 - PERSONAL HISTORY OF MALIGNANT NEOPLASM OF LARGE INTESTINE SNOMED Code(s): 177967034 (4) Anemia Current Visit: Yes Status: Chronic Priority: Medium Code(s): D64.9 - ANEMIA, UNSPECIFIED SNOMED Code(s): 805272995 (5) Aortic stenosis Current Visit: Yes Status: Acute Code(s): I35.0 - NONRHEUMATIC AORTIC (VALVE) STENOSIS SNOMED Code(s): 45420057 (6) Atrial fibrillation Current Visit: No Status: Acute Code(s): I48.91 - UNSPECIFIED ATRIAL FIBRILLATION SNOMED Code(s): 58564645 (7) Atrial flutter Current Visit: No Status: Acute Code(s): I48.92 - UNSPECIFIED ATRIAL FLUTTER SNOMED Code(s): 0313510 (8) Diastolic CHF, acute on chronic Current Visit: No Status: Acute Code(s): I50.33 - ACUTE ON CHRONIC DIASTOLIC (CONGESTIVE) HEART FAILURE SNOMED Code(s): 199182098 (9) Systolic congestive heart failure Current Visit: No Status: Acute Code(s): I50.20 - UNSPECIFIED SYSTOLIC (CONGESTIVE) HEART FAILURE SNOMED Code(s): 59221987 (10) Cancer of ascending colon metastatic to intra-abdominal lymph node Current Visit: Yes Status: Acute Code(s): C18.2 - MALIGNANT NEOPLASM OF ASCENDING COLON; C77.2 - SECONDARY AND UNSP MALIGNANT NEOPLASM OF INTRA-ABD NODES SNOMED Code(s): 57798829
--- NOTE | 2019-09-13 21:07 | P.PN ---
Progress Note - Text Progress Note Date: 09/13/19 Chief Complaint: Lower GI bleed Interval history: This is a very pleasant 89-year-old patient who follows with visiting physicians Dr. Amor. Chronic stable medical conditions include congestive heart failure with EF of 50%, aortic stenosis, mitral regurgitation, mitral stenosis, tricuspid regurgitation, secondary probably hypertension, diabetes, hypertension, osteoarthritis, hypothyroid, blind left eye, coronary artery disease, Briseyda filter.. Patient does use a walker. Patient did have a computed tomography scan of the abdomen on August 30 and did show mass along the lateral wall of the ascending colon and also adjacent soft tissue omental mass and is also another additional mass present in intra-abdominally. Suggestive of metastatic disease. Patient yesterday had some bleeding per the right rectum. And decided to come in. Patient's been having lower abdominal discomfort. She was admitted to the ER. Patient normally does use a walker. Lives alone. Colonoscopy done on September 07 shows ascending colon mass and AV malformation was some slight bleeding. On September 10 patient underwent surgical intervention to include right hemicolectomy, resection of transverse miserable on to work, small bowel resection from distal jejunum to ileum over to feet, repair of incisional hernia, lysis of adhesions. Patient was extubated on September 12. Today-. ICU. Extubated yesterday. On TPN. Has been off levo fed. On 3 L of nasal cannula. On clear liquids. Has a DEEDEE drain. Abdominal incision has a incision wound VAC. Set up in a chair.. Review of systems: Was done for constitutional, cardiovascular, GI, pulmonary. relevant finding as above Active Medications Albuterol/Ipratropium (Duoneb 0.5 Mg-3 Mg/3 Ml Soln) 3 ml INHALATION RT-QID [facility] Last Admin: 09/13/19 19:18 Dose: Not Given Documented by: Albuterol/Ipratropium (Duoneb 0.5 Mg-3 Mg/3 Ml Soln) 3 ml INHALATION RT-Q2H PRN PRN Reason: Shortness Of Breath Or Wheezing Furosemide (Lasix) 40 mg IV Q12HR [facility] Last Admin: 09/13/19 20:16 Dose: 40 mg Documented by: Heparin Sodium (Porcine) (Heparin) 5,000 unit SQ Q12HR [facility] Last Admin: 09/13/19 20:16 Dose: 5,000 unit Documented by: Metronidazole 500 mg/ IV (Solution) 100 mls @ 100 mls/hr IVPB Q8HR [facility] Last Admin: 09/13/19 16:17 Dose: 100 mls/hr Documented by: Norepinephrine Bitartrate 8 mg (/ Sodium Chloride) 258 mls @ 7.904 mls/hr IV .Q24H [facility]; Protocol Last Titration: 09/13/19 14:20 Dose: 0 mcg/kg/min, 0 mls/hr Documented by: Propofol 1,000 mg/ IV Solution 100 mls @ 0 mls/hr IV .Q0M [facility]; Protocol Last Titration: 09/12/19 10:36 Dose: 0 mcg/kg/min, 0 mls/hr Documented by: Piperacillin Sod/Tazobactam (Sod 3.375 gm/ Sodium Chloride) 100 mls @ 25 mls/hr IVPB Q12H [facility] Last Admin: 09/13/19 17:03 Dose: 25 mls/hr Documented by: Insulin Human Regular 100 unit (/ Sodium Chloride) 101 mls @ 0 mls/hr IV .Q0M [facility]; Protocol Last Titration: 09/13/19 20:05 Dose: 4.5 unit/hr, 4.545 mls/hr Documented by: Parenteral Vitamin Supplement 10 ml/ Chromium/Copper/Manganese/Seleni/Zn 1 ml/Amino Ac/Electrol/Dextrose/Calcium 1,011 mls @ 65 mls/hr IV .BY DURATION [facility] Last Admin: 09/13/19 20:17 Dose: 65 mls/hr Documented by: Amino Ac/Electrol/Dextrose/Calcium (Clinimix E 4.25%-D10% Solution) 1,000 mls @ 65 mls/hr IV .BY DURATION [facility] Levothyroxine Sodium (Synthroid Ivp) 56.25 mcg IV DAILY [facility] Last Admin: 09/13/19 08:12 Dose: 56.25 mcg Documented by: Miscellaneous Information (Magnesium Per Protocol) 1 each MISCELLANE DAILY PRN; Protocol PRN Reason: Per Protocol Miscellaneous Information (Potassium Per Protocol) 1 each MISCELLANE DAILY PRN; Protocol PRN Reason: Per Protocol Nalbuphine HCl (Nubain) 2.5 mg IV Q4HR PRN PRN Reason: Itching Naloxone HCl (Narcan) 0.2 mg IV Q2M PRN PRN Reason: Opioid Reversal Ondansetron HCl (Zofran) 4 mg IVP Q8HR PRN PRN Reason: Nausea And Vomiting Pantoprazole Sodium (Protonix) 40 mg IV DAILY [facility] Last Admin: 09/13/19 08:11 Dose: 40 mg Documented by: Physical examination: VITAL SIGNS: 98.4, 90, 20, 122/46, 94% on 3 L GENERAL: Sitting up in a chair, awake EYES: Pupils equal. Conjunctiva normal. HEENT: External appearance of nose and ears normal, oral cavity grossly normal. NECK: JVD not raised; masses not palpable. HEART: First and second heart sounds are normal; no edema. LUNGS: Respiratory rate normal; clear to auscultation. ABDOMEN: Some tenderness, dressing over the wound, bowel sounds sluggish, mild tenderness no guarding or rigidity. DEEDEE drain.- Minimal output PSYCH: Alert and oriented x3; mood and affect normal. MUSCULOSKELETAL: Evidence of OA especially in the hands and knees INVESTIGATIONS, reviewed in the clinical context: White count 11.5 hemoglobin 7.3 progression 3.3 bun 43 creatinine 1.63 Previous testing White count 9.6 hemoglobin 9.2 platelets 240 progression 4.7 BUN 73 creatinine 1.79 Computed tomography scan of the abdomen-results noted as above Assessment: -Ascending colon mass, per coloscopy, -right hemicolectomy, resection of transverse miserable on to work, small bowel resection from distal jejunum to ileum over to feet, repair of incisional hernia, lysis of adhesions. 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 Started on clear liquids. Has not really passed flatus. On IV Lasix, IV Flagyl, TPN, IV Zosyn. Care was discussed with the patient. Prognosis guarded.
[2019-09-13 22:09] LABS: Glucose,Whole Blood 156 mg/dL (75-99)
[2019-09-13] MEDS: HYDROcodone/APAP 5-325MG 1 EACH TAB PO PRN (22:13)
[2019-09-14] MEDS: POTASSIUM CHLORIDE 10 MEQ in WATER FOR INJECTION 1 100ML.BAG IVPB SCH ×4 (00:04→11:36)
[2019-09-14] MEDS: metroNIDAZOLE-NS PMX 500 MG in SALINE 1 100ML.BAG IVPB SCH ×3 (00:04→16:04)
[2019-09-14 00:06] LABS: Glucose,Whole Blood 175 mg/dL (75-99)
[2019-09-14 02:30] LABS: Glucose,Whole Blood 164 mg/dL (75-99)
[2019-09-14 04:10] LABS: Glucose,Whole Blood 165 mg/dL (75-99)
[2019-09-14] MEDS: HYDROcodone/APAP 5-325MG 1 EACH TAB PO PRN ×2 (05:06→10:53)
[2019-09-14 05:22] LABS: Anisocytosis Slight; Basophils % (A) 0 %; Eosinophils # (A) 0.5 k/uL (0-0.7); Eosinophils % (A) 5 %; HCT 23.7 % (34.0-46.0); HGB 7.3 gm/dL (11.4-16.0); Hypochromasia Marked; Lymphocytes # (A) 0.9 k/uL (1.0-4.8); Lymphocytes % (A) 9 %; MCH 29.8 pg (25.0-35.0); MCHC 30.9 g/dL (31.0-37.0); MCV 96.3 fL (80.0-100.0); Macrocytosis Slight; Mean Platelet Volume 10.4; Monocytes # (A) 0.7 k/uL (0-1.0); Monocytes % (A) 7 %; Neutrophils # (A) 7.1 k/uL (1.3-7.7); Neutrophils % (A) 76 %; Platelet Count 129 k/uL (150-450); Poikilocytosis Moderate; RBC 2.46 m/uL (3.80-5.40); RDW 18.5 % (11.5-15.5); WBC 9.5 k/uL (3.8-10.6)
[2019-09-14 05:24] LABS: Calcium 7.8 mg/dL (8.4-10.2); Phosphorus 2.1 mg/dL (2.5-4.5)
[2019-09-14] MEDS: PIPERACILLIN-TAZOBACTAM 3.375 GM in SODIUM CHLORIDE 0.9% 100 ML IVPB SCH ×2 (06:15→18:23)
[2019-09-14 06:33] LABS: Glucose,Whole Blood 169 mg/dL (75-99)
--- NOTE | 2019-09-14 07:23 | XR ---
EXAMINATION TYPE: XR chest 1V portable DATE OF EXAM: 09/14/2019 COMPARISON: 09/13/2019 HISTORY: Shortness of breath. Evaluate for fluid overload. TECHNIQUE: Single frontal view of the chest is obtained. FINDINGS: Similar bibasilar opacities and trace pleural effusions with bibasilar airspace disease. I nterstitial prominence remains. Multilead left-sided cardiac device, cardiac cranioplasty, and post C ABG changes the chest are again seen with upper limits of normal size cardiomediastinal silhouette. R ight internal jugular central venous catheter is also unchanged. IMPRESSION: Mild fluid overload with trace pleural effusions and bibasilar airspace disease with min imal interstitial edema.
[2019-09-14] MEDS: IPRATROPIUM-ALBUTEROL 3 ML NEB INHALATION SCH ×4 (07:54→20:04)
[2019-09-14] MEDS: PANTOPRAZOLE 40 MG/10 ML VIAL IV SCH (08:15)
[2019-09-14] MEDS: FUROSEMIDE 10 MG/ML 4 ML VIAL IV SCH ×2 (08:16→16:04)
[2019-09-14] MEDS: LEVOTHYROXINE IVP 100 MCG/5 ML VIAL IV SCH (08:16)
[2019-09-14 08:41] LABS: Glucose,Whole Blood 169 mg/dL (75-99)
[2019-09-14] MEDS: HEPARIN SODIUM,PORCINE 5,000 UNIT/ML 1 ML VIAL SQ SCH ×2 (08:43→21:21)
[2019-09-14] MEDS ORDERED: SODIUM PHOSPHATE 10 MMOL in SODIUM CHLORIDE 0.9% 250 ML IVPB ONE (09:45)
--- NOTE | 2019-09-14 10:20 | PN ---
PROGRESS NOTE PULMONARY/CRITICAL CARE PROGRESS NOTE: DATE OF SERVICE: 09/14/2019 This is an 89-year-old female who was admitted to the hospital on September 05. She came with a diagnosis of GI bleed and colon cancer. She went to the operating room on September 10. At that time, she was intubated obviously because she had an exploratory laparotomy, lysis of adhesions, right hemicolectomy, transverse colon resection, hernia repair, and small bowel resection. She did not require a colostomy. She was transferred back to the ICU after surgery on the and had been on the ventilator ever since. The patient was successfully extubated on September 12, 2 days later. We gave her a daily interruption of sedation, checked weaning parameters, which were excellent, and extubated the patient. She has remained extubated. Currently, she is on O2 at 2 L by nasal cannula. She is getting total parental nutrition at 65 mL an hour, insulin drip of 4.5 units an hour and saline IV at 20 mL an hour. The patient is doing much better. She is awake and alert. She is using her incentive spirometer. We do recommend deep breathing, coughing and clearing of secretions. Overall, she has done remarkably well given her age, her multitude of medical problems, and her rather extensive surgical procedure. PHYSICAL EXAMINATION: VITAL SIGNS: Current vital signs are reviewed. Temperature 97.7, heart rate 80, respiratory rate 17, blood pressure 104/43, mean 63 and saturations on 2 L are 96% to 100%. GENERAL: Appears in no acute distress. HEENT: Examination is grossly unremarkable. Mucous membranes are moist. Nasal O2 noted. NECK: Supple. Full range of motion. No adenopathy or thyromegaly. Neck veins are flat. CARDIOVASCULAR: Examination reveals regular rhythm and rate. Heart rate 80. S1, S2 normal. There is no murmur. LUNGS: Reveal a few scattered rhonchi. No wheezes or crackles. Breath sounds equal. ABDOMEN: Soft. No bowel sounds are noted. She has a midline incision. EXTREMITIES: Are intact. There is bilateral lower extremity edema and some diffuse anasarca and edema throughout. There is no cyanosis or clubbing. SKIN: Without rash. NEUROLOGIC: Examination is brief but nonfocal. LABS: Labs are reviewed. White count 9.5, hemoglobin 10.3, hematocrit 23.7, platelet count 129,000. Sodium 136, potassium 4, chloride 108, CO2 of 24. Anion gap is 4. BUN and creatinine were 41 and 1.31. Phosphorus is 2.1, calcium 7.8 and magnesium 2.0. Microbiologic studies are all negative thus far. A chest x-ray from September 14 shows evidence of fluid overload. According to her I's and O's, she is about 9.5 L ahead over the last 3 or 4 days. MEDICATIONS: Medications are reviewed. ASSESSMENT: 1. Postoperative day #4, status post exploratory laparotomy with lysis of adhesions, right hemicolectomy, transverse colon resection, hernia repair, small bowel resection, and placement of a Prevena wound VAC. 2. Postoperative respiratory failure with routine postoperative ventilator management, status post successful extubation on September 12. 3. History of colon cancer with colon resection on September 10. 4. Gastrointestinal bleed. 5. Chronic iron deficiency anemia. 6. History of colon resection. 7. Ischemic cardiomyopathy. 8. Diastolic heart failure. 9. History of atrial fibrillation. 10.History of pulmonary embolism, status post Briseyda filter placement. 11.History of sleep apnea syndrome. 12.Type 2 diabetes mellitus with diabetic neuropathy. 13.History of hypertensive heart disease. 14.History of bypass grafting. 15.Status post aortic valve replacement. 16.Depression by history. 17.Gout. 18.Status post pacemaker insertion. 19.History of hypothyroidism. PLAN: Currently, the patient seems to be doing reasonably well. She is only on O2 at 2 L by nasal cannula. Saturations are excellent. She is still getting TPN at 65 mL an hour and insulin drip of 4.5 units an hour. She is doing well on her deep breathing, coughing, clearing of secretions and hourly use of the incentive spirometer. Certainly not out of the frank. We will keep her here in the ICU for at least another day. We will continue to follow. Prognosis is guarded. She is a DO NOT INTUBATE/DO NOT RESUSCITATE patient should she deteriorate in the future. MMODL / IJN: [id number] /
[2019-09-14 10:38] LABS: Glucose,Whole Blood 173 mg/dL (75-99)
[2019-09-14] MEDS: ONDANSETRON 4 MG/2 ML VIAL IVP PRN (10:44)
[2019-09-14 11:56] LABS: Glucose,Whole Blood 172 mg/dL (75-99)
[2019-09-14] MEDS ORDERED: ACETAMINOPHEN IV (For NPO) 1,000 MG in EMPTY BAG 1 BAG IVPB SCH (12:00)
[2019-09-14] MEDS: ACETAMINOPHEN IV (For NPO) 1,000 MG in EMPTY BAG 1 BAG IVPB PRN ×2 (12:27→21:21)
[2019-09-14] MEDS: FAT EMULSION 20% 250 ML IV SCH (14:01)
[2019-09-14] MEDS: 1: MVI, ADULT NO.4 WITH VIT K 10 ML, TRACE (CONC-1ML/DOSE) 1 ML in AMINO ACID 4.25%-D10W IV SCH ×3 (14:01)
[2019-09-14] MEDS: INSULIN REGULAR 100 UNIT in SODIUM CHLORIDE 0.9% 100 ML IV SCH (14:12)
[2019-09-14 14:16] LABS: Glucose,Whole Blood 181 mg/dL (75-99)
--- NOTE | 2019-09-14 14:54 | P.PN ---
Subjective Progress Note Date: 09/14/19 CHIEF COMPLAINT: Abdominal pain HISTORY OF PRESENT ILLNESS: Patient is status post exploratory laparotomy with resection of right colon for over 10 cm lesion with invasion to abdominal wall including small bowel resection for small bowel obstruction performed on 09/10/2019. Patient examined at the bedside in the intensive care unit. She reports her pain is tolerable at this time. She is receiving [place]. She reports nausea with the [place]. She is also receiving IV Zofran. She is tolerating liquid diet. Denies passing flatus. Vital signs are stable. She is afebrile. WBC 9.5. Hemoglobin 7.3. PHYSICAL EXAM: VITAL SIGNS: Reviewed GENERAL: Well-developed in no acute distress. HEENT: No sclera icterus. Extraocular movements grossly intact. Moist buccal mucosa. Head is atraumatic, normocephalic. Hears conversational speech. No nasal drainage. NECK: Supple without lymphadenopathy. CHEST: Non-labored respirations and equal bilateral excursions. CARDIOVASCULAR: Regular rate with regular rhythm. Palpable 2+ radial pulses. ABDOMEN: Soft. Midline dressing intact with PREVENA. DEEDEE drain with serosanguineous drainage MUSCULOSKELETAL: No clubbing or cyanosis NEUROLOGIC: No focal or lateralizing signs. Cranial nerves II through XII grossly intact. PSYCH: Appropriate affect. Alert and oriented to person, place and time. SKIN: Well perfused. Good skin turgor. ASSESSMENT: 1. Ascending colon cancer, recurrent metastatic 2. Rectal bleeding PLAN: Advance diet to full liquid. Await bowel function Continue TPN Increase activity as tolerated Pain control IS 10 times an hour May transfer to [facility] from surgical standpoint Will require MARIO at time of discharge Nurse practitioner note has been reviewed by physician. Signing provider agrees with the documented findings, assessment, and plan of care. Objective - Vital Signs Vital signs: Vital Signs Temp 97.7 F 09/14/19 08:00 Pulse 89 09/14/19 13:00 Resp 21 09/14/19 13:00 BP 115/50 09/14/19 13:00 Pulse Ox 96 09/14/19 13:00 Intake & Output 09/13/19 09/14/19 09/14/19 18:59 06:59 18:59 Intake Total 2006.389 2829.610 9570.012 Output Total 1185 1235 975 Balance 821.389 448.056 117.012 Weight 94.6 kg 94.6 kg Intake: IV 1192 1392 952 Dextrose 5% in Water 1, 100 000 ml @ 50 mls/hr IV . Q23H [facility] with Sodium Bicarb (1 Meq/ml) 150 ml Rx#:[id number] Mvi, Adult No.4 with Vit 650 470 K 10 ml Trace (Conc-1Ml/ Dose) 1 ml Parenteral Electrolytes 20 ml In Amino Acid 4.25%-D10w 1, 000 ml @ 65 mls/hr IV .BY DURATION [facility] Rx#: [id number] Normal saline 240 240 140 Parenteral Electrolytes 780 130 20 ml In Amino Acid 4.25% -D10w 1,000 ml @ 65 mls/ hr IV .BY DURATION [facility] Rx #:[id number] Potassium Chloride 10 meq 200 200 In Water For Injection 1 100ml.bag @ 100 mls/hr IVPB Q1H [facility] Rx#: [id number] metroNIDAZOLE-NS PMX 500 100 100 mg In Saline 1 100ml.bag @ 100 mls/hr IVPB Q8HR [facility] Rx#:[id number] pressure bag 72 72 42 Intake, IV Titration 64.389 51.056 140.012 Amount ACETAMINOPHEN IV (For NPO 100 ) 1,000 mg In Empty Bag 1 bag @ 400 mls/hr IVPB Q6HR PRN Rx#:[id number] Insulin Regular 100 unit 32.716 51.056 40.012 In Sodium Chloride 0.9% 100 ml @ Per Protocol IV .Q0M [facility] Rx#:[id number] Norepinephrine 8 mg In 31.673 Sodium Chloride 0.9% 250 ml @ 0.05 MCG/KG/MIN 7. 904 mls/hr IV .Q24H [facility] Rx#:[id number] Oral 750 240 Output: Urine 1185 1235 975 Other: Voiding Method Indwelling Catheter Indwelling Catheter Indwelling Catheter ABP, PAP, CO, CI - Last Documented Arterial Blood Pressure 95/36 - Labs CBC & Chem 7: 09/14/19 05:00 09/14/19 05:00 Labs: Abnormal Lab Results - Last 24 Hours (Table) 09/13/19 09/13/19 09/13/19 Range/Units 16:02 17:58 19:58 RBC (3.80-5.40) m/uL Hgb (11.4-16.0) gm/dL Hct (34.0-46.0) % MCHC (31.0-37.0) g/dL RDW (11.5-15.5) % Plt Count (150-450) k/uL Lymphocytes # (1.0-4.8) k/uL Sodium (137-145) mmol/L Chloride (98-107) mmol/L BUN (7-17) mg/dL Creatinine (0.52-1.04) mg/dL Glucose (74-99) mg/dL POC Glucose (mg/dL) 203 H 178 H 175 H (75-99) mg/dL Calcium (8.4-10.2) mg/dL Phosphorus (2.5-4.5) mg/dL 09/13/19 09/13/19 09/14/19 Range/Units 21:57 23:55 02:08 RBC (3.80-5.40) m/uL Hgb (11.4-16.0) gm/dL Hct (34.0-46.0) % MCHC (31.0-37.0) g/dL RDW (11.5-15.5) % Plt Count (150-450) k/uL Lymphocytes # (1.0-4.8) k/uL Sodium (137-145) mmol/L Chloride (98-107) mmol/L BUN (7-17) mg/dL Creatinine (0.52-1.04) mg/dL Glucose (74-99) mg/dL POC Glucose (mg/dL) 156 H 175 H 164 H (75-99) mg/dL Calcium (8.4-10.2) mg/dL Phosphorus (2.5-4.5) mg/dL 09/14/19 09/14/19 09/14/19 Range/Units 03:58 05:00 05:00 RBC 2.46 L (3.80-5.40) m/uL Hgb 7.3 L (11.4-16.0) gm/dL Hct 23.7 L (34.0-46.0) % MCHC 30.9 L (31.0-37.0) g/dL RDW 18.5 H (11.5-15.5) % Plt Count 129 L (150-450) k/uL Lymphocytes # 0.9 L (1.0-4.8) k/uL Sodium 136 L (137-145) mmol/L Chloride 108 H (98-107) mmol/L BUN 41 H (7-17) mg/dL Creatinine 1.31 H (0.52-1.04) mg/dL Glucose 152 H (74-99) mg/dL POC Glucose (mg/dL) 165 H (75-99) mg/dL Calcium 7.8 L (8.4-10.2) mg/dL Phosphorus 2.1 L (2.5-4.5) mg/dL 09/14/19 09/14/19 09/14/19 Range/Units 06:21 08:24 10:26 RBC (3.80-5.40) m/uL Hgb (11.4-16.0) gm/dL Hct (34.0-46.0) % MCHC (31.0-37.0) g/dL RDW (11.5-15.5) % Plt Count (150-450) k/uL Lymphocytes # (1.0-4.8) k/uL Sodium (137-145) mmol/L Chloride (98-107) mmol/L BUN (7-17) mg/dL Creatinine (0.52-1.04) mg/dL Glucose (74-99) mg/dL POC Glucose (mg/dL) 169 H 169 H 173 H (75-99) mg/dL Calcium (8.4-10.2) mg/dL Phosphorus (2.5-4.5) mg/dL 09/14/19 09/14/19 Range/Units 11:45 14:04 RBC (3.80-5.40) m/uL Hgb (11.4-16.0) gm/dL Hct (34.0-46.0) % MCHC (31.0-37.0) g/dL RDW (11.5-15.5) % Plt Count (150-450) k/uL Lymphocytes # (1.0-4.8) k/uL Sodium (137-145) mmol/L Chloride (98-107) mmol/L BUN (7-17) mg/dL Creatinine (0.52-1.04) mg/dL Glucose (74-99) mg/dL POC Glucose (mg/dL) 172 H 181 H (75-99) mg/dL Calcium (8.4-10.2) mg/dL Phosphorus (2.5-4.5) mg/dL Microbiology - Last 24 Hours (Table) 09/11/19 17:05 Gram Stain - Preliminary Peritoneal Fluid Body Fluid Culture - Preliminary 09/11/19 00:37 Gram Stain - Final Sputum Sputum Culture - Final
[2019-09-14] MEDS ORDERED: FUROSEMIDE 10 MG/ML 4 ML VIAL IV SCH (16:00)
[2019-09-14 16:11] LABS: Glucose,Whole Blood 197 mg/dL (75-99)
--- NOTE | 2019-09-14 16:13 | PN ---
PROGRESS NOTE The patient is seen for followup for an acute kidney injury. This morning she is currently resting comfortably. Renal function continues to improve. Creatinine is down to 1.3. The patient denies any significant chest pains or shortness of breath. PHYSICAL EXAMINATION: This morning blood pressure was 115/41, heart rate of 80 per minute. The patient is afebrile. Examination of the heart, S1 and S2. Examination of the lungs, bilateral breath sounds are heard. Abdomen is soft. Examination of the lower extremities shows trace edema bilaterally. [employer] exam grossly intact. LABS: Show sodium of 136, potassium 4.0, chloride 108, BUN 41, creatinine 1.3, phosphorus 2.1, calcium 7.8. Hemoglobin 7.3 g/dL. ASSESSMENT: 1. Acute kidney injury, ischemic acute tubular necrosis, nonoliguric, currently improved. 2. Volume overload. Patient is maintained on IV Lasix q.12 hours. I will increase it to q.8 hours as chest x-ray continues to show evidence of pulmonary vascular congestion. Patient is also maintained on TPN as she is not eating postop. 3. Status post exploratory laparotomy with right hemicolectomy, small bowel resection, repair of incisional hernia, and lysis of adhesions. 4. History of diastolic dysfunction and diastolic congestive heart failure. Ejection fraction 55% earlier in May. 5. Hypoxic respiratory failure, currently status post extubation. 6. History of aortic valve replacement with tissue valve. 7. Metabolic acidosis, status post IV bicarbonate. PLAN: Increase Lasix. Repeat labs in a.m. Decrease the TPN once patient starts eating. MMODL / IJN: [id number] /
[2019-09-14 18:14] LABS: Glucose,Whole Blood 187 mg/dL (75-99)
[2019-09-14 20:13] LABS: Glucose,Whole Blood 200 mg/dL (75-99)
--- NOTE | 2019-09-14 22:04 | PN ---
PROGRESS NOTE DATE OF SERVICE: 09/14/2019 REASON FOR FOLLOWUP: Leukocytosis; abdominal source. INTERVAL HISTORY: The patient is currently afebrile. The patient has been breathing comfortably. The patient denies having any chest pain or any cough. Abdominal pain is currently controlled. Denies any nausea or vomiting. PHYSICAL EXAMINATION: Blood pressure 112/53 with a pulse of 94, temperature 98. She is 96% on 2 L nasal cannula. General description is an elderly female up in the chair in no distress. RESPIRATORY SYSTEM: Unlabored breathing with decreased breath sounds at the base. No wheeze. HEART: S1, S2. Regular rate and rhythm. ABDOMEN: Soft. Mildly distended. No guarding or rigidity. LABS: Hemoglobin 7.3, white count 9.5, BUN of 41. Creatinine is 1.31. Abdominal culture so far pending. DIAGNOSTIC IMPRESSION AND PLAN: Patient with leukocytosis, likely abdominal source in this patient who did have extensive abdominal surgery, but no evidence of any perforation or abscess. Currently covered with Zosyn; to continue while waiting for oral intake to improve, as may be switched over to oral at that point. Continue with supportive care. MMODL / IJN: [id number] /
[2019-09-14 22:12] LABS: Glucose,Whole Blood 191 mg/dL (75-99)
--- NOTE | 2019-09-14 23:54 | P.PN ---
Progress Note - Text Progress Note Date: 09/14/19 Chief Complaint: Lower GI bleed Interval history: This is a very pleasant 89-year-old patient who follows with visiting physicians Dr. Amor. Chronic stable medical conditions include congestive heart failure with EF of 50%, aortic stenosis, mitral regurgitation, mitral stenosis, tricuspid regurgitation, secondary probably hypertension, diabetes, hypertension, osteoarthritis, hypothyroid, blind left eye, coronary artery disease, Briseyda filter.. Patient does use a walker. Patient did have a computed tomography scan of the abdomen on August 30 and did show mass along the lateral wall of the ascending colon and also adjacent soft tissue omental mass and is also another additional mass present in intra-abdominally. Suggestive of metastatic disease. Patient yesterday had some bleeding per the right rectum. And decided to come in. Patient's been having lower abdominal discomfort. She was admitted to the ER. Patient normally does use a walker. Lives alone. Colonoscopy done on September 07 shows ascending colon mass and AV malformation was some slight bleeding. On September 10 patient underwent surgical intervention to include right hemicolectomy, resection of transverse mesocolon tomor, small bowel resection from distal jejunum to ileum over 2 feet, repair of incisional hernia, lysis of adhesions. Patient was extubated on September 12. On TPN. Abdominal incision wound VAC. Today-. ICU. Tired. Getting TPN. Had been on clear liquids. Pain control. Review of systems: Was done for constitutional, cardiovascular, GI, pulmonary. relevant finding as above Active Medications Hydrocodone Bitart/Acetaminophen (Bow 5-325) 1 each PO Q4HR PRN PRN Reason: Pain Last Admin: 09/14/19 10:53 Dose: 1 each Documented by: Albuterol/Ipratropium (Duoneb 0.5 Mg-3 Mg/3 Ml Soln) 3 ml INHALATION RT-QID [facility] Last Admin: 09/14/19 20:04 Dose: 3 ml Documented by: Albuterol/Ipratropium (Duoneb 0.5 Mg-3 Mg/3 Ml Soln) 3 ml INHALATION RT-Q2H PRN PRN Reason: Shortness Of Breath Or Wheezing Furosemide (Lasix) 40 mg IV Q8HR [facility] Last Admin: 09/14/19 16:04 Dose: 40 mg Documented by: Heparin Sodium (Porcine) (Heparin) 5,000 unit SQ Q12HR [facility] Last Admin: 09/14/19 21:21 Dose: 5,000 unit Documented by: Metronidazole 500 mg/ IV (Solution) 100 mls @ 100 mls/hr IVPB Q8HR [facility] Last Admin: 09/14/19 16:04 Dose: 100 mls/hr Documented by: Norepinephrine Bitartrate 8 mg (/ Sodium Chloride) 258 mls @ 7.904 mls/hr IV .Q24H [facility]; Protocol Last Titration: 09/13/19 14:20 Dose: 0 mcg/kg/min, 0 mls/hr Documented by: Propofol 1,000 mg/ IV Solution 100 mls @ 0 mls/hr IV .Q0M [facility]; Protocol Last Titration: 09/12/19 10:36 Dose: 0 mcg/kg/min, 0 mls/hr Documented by: Piperacillin Sod/Tazobactam (Sod 3.375 gm/ Sodium Chloride) 100 mls @ 25 mls/hr IVPB Q12H [facility] Last Admin: 09/14/19 18:23 Dose: 25 mls/hr Documented by: Insulin Human Regular 100 unit (/ Sodium Chloride) 101 mls @ 0 mls/hr IV .Q0M [facility]; Protocol Last Titration: 09/14/19 18:18 Dose: 6.5 unit/hr, 6.565 mls/hr Documented by: Parenteral Vitamin Supplement 10 ml/ Chromium/Copper/Manganese/Seleni/Zn 1 ml/Amino Ac/Electrol/Dextrose/Calcium 1,011 mls @ 65 mls/hr IV .BY DURATION [facility] Stop: 09/15/19 01:59 Last Admin: 09/13/19 20:17 Dose: 65 mls/hr Documented by: Amino Ac/Electrol/Dextrose/Calcium (Clinimix E 4.25%-D10% Solution) 1,000 mls @ 65 mls/hr IV .BY DURATION [facility] Stop: 09/15/19 01:59 Last Admin: 09/14/19 14:01 Dose: 65 mls/hr Documented by: Acetaminophen 1,000 mg/ IV (Solution) 100 mls @ 400 mls/hr IVPB Q6HR PRN PRN Reason: Pain Stop: 09/15/19 12:14 Last Admin: 09/14/19 21:21 Dose: 400 mls/hr Documented by: Fat Emulsion Intravenous (Lipids 20%) 250 mls @ 21 mls/hr IV Q24H [facility] Last Admin: 09/14/19 14:01 Dose: 21 mls/hr Documented by: Parenteral Vitamin Supplement 10 ml/ Chromium/Copper/Manganese/Seleni/Zn 1 ml/Amino Ac/Electrol/Dextrose/Calcium 1,011 mls @ 80 mls/hr IV .BY DURATION [facility] Amino Ac/Electrol/Dextrose/Calcium (Clinimix E 4.25%-D10% Solution) 1,000 mls @ 80 mls/hr IV .BY DURATION [facility] Levothyroxine Sodium (Synthroid Ivp) 56.25 mcg IV DAILY [facility] Last Admin: 09/14/19 08:16 Dose: 56.25 mcg Documented by: Miscellaneous Information (Magnesium Per Protocol) 1 each MISCELLANE DAILY PRN; Protocol PRN Reason: Per Protocol Miscellaneous Information (Potassium Per Protocol) 1 each MISCELLANE DAILY PRN; Protocol PRN Reason: Per Protocol Nalbuphine HCl (Nubain) 2.5 mg IV Q4HR PRN PRN Reason: Itching Naloxone HCl (Narcan) 0.2 mg IV Q2M PRN PRN Reason: Opioid Reversal Ondansetron HCl (Zofran) 4 mg IVP Q6HR PRN PRN Reason: Nausea And Vomiting Last Admin: 09/14/19 10:44 Dose: 4 mg Documented by: Pantoprazole Sodium (Protonix) 40 mg IV DAILY [facility] Last Admin: 09/14/19 08:15 Dose: 40 mg Documented by: Physical examination: VITAL SIGNS: 97.7, 80, 17, 104/43, 100% on 2 L GENERAL: Sitting up in a chair, awake EYES: Pupils equal. Conjunctiva normal. HEENT: External appearance of nose and ears normal, oral cavity grossly normal. NECK: JVD not raised; masses not palpable. HEART: First and second heart sounds are normal; no edema. LUNGS: Respiratory rate normal; clear to auscultation. ABDOMEN: Some tenderness, dressing over the wound, bowel sounds sluggish, mild tenderness no guarding or rigidity. DEEDEE drain.- Minimal output PSYCH: Alert and oriented x3; mood and affect normal. MUSCULOSKELETAL: Evidence of OA especially in the hands and knees INVESTIGATIONS, reviewed in the clinical context: White count 9.5 hemoglobin 7.3 progression 4 bun 41 and creatinine 1.31 Previous testing White count 9.6 hemoglobin 9.2 platelets 240 progression 4.7 BUN 73 creatinine 1.79 Computed tomography scan of the abdomen-results noted as above Assessment: -Ascending colon mass, per colonoscopy, -right hemicolectomy, resection of transverse mesocolon tumor, small bowel resection from distal jejunum to ileum over 2feet, repair of incisional hernia, lysis of adhesions. 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 Per surgery diet has been advanced to full liquid diet. Care was discussed with the patient.
[2019-09-15 00:11] LABS: Glucose,Whole Blood 188 mg/dL (75-99)
[2019-09-15] MEDS: FUROSEMIDE 10 MG/ML 4 ML VIAL IV SCH ×2 (00:26→08:36)
[2019-09-15] MEDS: metroNIDAZOLE-NS PMX 500 MG in SALINE 1 100ML.BAG IVPB SCH ×3 (00:27→18:14)
[2019-09-15] MEDS: INSULIN REGULAR 100 UNIT in SODIUM CHLORIDE 0.9% 100 ML IV SCH ×2 (02:09→17:21)
[2019-09-15 02:14] LABS: Glucose,Whole Blood 162 mg/dL (75-99)
[2019-09-15] MEDS: 1: MVI, ADULT NO.4 WITH VIT K 10 ML, TRACE (CONC-1ML/DOSE) 1 ML in AMINO ACID 4.25%-D10W IV SCH ×6 (02:59→18:15)
[2019-09-15] MEDS: ONDANSETRON 4 MG/2 ML VIAL IVP PRN ×2 (03:19→08:33)
[2019-09-15] MEDS: ACETAMINOPHEN IV (For NPO) 1,000 MG in EMPTY BAG 1 BAG IVPB PRN ×2 (03:53→09:50)
[2019-09-15 04:08] LABS: Glucose,Whole Blood 116 mg/dL (75-99)
[2019-09-15 04:41] LABS: Ionized Calcium 4.7 mg/dL (4.5-5.3)
[2019-09-15 04:49] LABS: Calcium 7.8 mg/dL (8.4-10.2); Magnesium 1.9 mg/dL (1.6-2.3); Phosphorus 3.2 mg/dL (2.5-4.5); Potassium 3.7 mmol/L (3.5-5.1)
[2019-09-15] MEDS: MAGNESIUM SULFATE-D5W PMX 1 GM in DEXTROSE/WATER 1 100ML.BAG IVPB SCH ×2 (05:19→06:14)
[2019-09-15] MEDS: POTASSIUM CHLORIDE 10 MEQ in WATER FOR INJECTION 1 100ML.BAG IVPB SCH ×2 (05:19→06:15)
[2019-09-15] MEDS: PIPERACILLIN-TAZOBACTAM 3.375 GM in SODIUM CHLORIDE 0.9% 100 ML IVPB SCH ×2 (05:20→18:15)
[2019-09-15 06:29] LABS: Glucose,Whole Blood 179 mg/dL (75-99)
[2019-09-15 07:03] LABS: Anisocytosis Slight; HCT 25.5 % (34.0-46.0); HGB 7.6 gm/dL (11.4-16.0); Hypochromasia Marked; MCH 29.2 pg (25.0-35.0); MCV 97.3 fL (80.0-100.0); Macrocytosis Slight; Mean Platelet Volume 10.8; Platelet Count 128 k/uL (150-450); Poikilocytosis Moderate; RBC 2.62 m/uL (3.80-5.40); RDW 18.3 % (11.5-15.5); WBC 9.9 k/uL (3.8-10.6)
[2019-09-15] MEDS: IPRATROPIUM-ALBUTEROL 3 ML NEB INHALATION SCH ×4 (07:26→20:05)
--- NOTE | 2019-09-15 07:35 | XR ---
EXAMINATION TYPE: XR chest 1V portable DATE OF EXAM: 09/15/2019 COMPARISON: 08/15/2019 HISTORY: Shortness of breath TECHNIQUE: Frontal and lateral views of the chest are obtained. FINDINGS: Scattered senescent parenchymal changes noted. Hyperinflation compatible with COPD. Pulmonary venous congestion with basilar infiltrates and/or atelectasis with pleural effusions remain unchanged. Heart size is stable. Mediastinal structures are stable and grossly unremarkable. No evidence for hilar prominence. Degenerative changes dorsal spine. IMPRESSION: 1. Stable chest
--- NOTE | 2019-09-15 08:32 | PN ---
PROGRESS NOTE PULMONARY/CRITICAL CARE PROGRESS NOTE: DATE OF SERVICE: 09/15/2019 This is an 89-year-old female who was admitted to the hospital on September 05, 2019. She came into the hospital with a diagnosis of GI bleed and colon cancer. The patient had obstructing colon cancer in the transverse colon and went to the operating room on September 10, 2019. At that time, she had exploratory laparotomy, lysis of adhesions, right hemicolectomy, transverse colon resection, hernia repair, and small-bowel resection. She did not require a colostomy. That wound VAC was placed at that time. She was transferred back to the ICU on the ventilator and was successfully extubated 2 days later on September 12, 2019. The patient is doing reasonably well. She remains on O2 at 2 L. She has TPN at 80 mL an hour. lipids at 21 cc an hour. She has a basic saline IV at 10 mL an hour and insulin drip of 5.5 units an hour. She is postop day #5. The patient also carries with her a diagnosis of GI bleed, chronic iron deficiency anemia, ischemic cardiomyopathy, diastolic heart failure, history of atrial fibrillation, pulmonary embolism, status post Briseyda filter, history of sleep apnea syndrome, type 2 diabetes with diabetic neuropathy, hypertensive heart disease, previous bypass grafting, aortic valve replacement, depression, gout, status post pacemaker insertion, and hypothyroidism. All in all, the patient is doing reasonably well. We checked. We encourage her to do deep breathing, coughing, clearing of secretions and use the incentive spirometer q.1 hour. Current vital signs are reviewed temperature is 98.5, heart rate 88, respiratory rate 21, blood pressure 124/51 with mean pf 75, CVP is 13 2 L saturations 95-96 percent. She appears in no acute distress HEENT examination is grossly unremarkable. Mucous membranes are moist. No oral lesions. NECK: Supple. Full range of motion. No adenopathy or thyromegaly. Neck veins are flat. CARDIOVASCULAR: Examination reveals regular rhythm rate. Heart rate in mid 80s. HEART: Sounds are distant. Soft systolic murmur is noted. S1, S2 normal. LUNGS: Reveal mostly clear breath sounds. A few scattered rhonchi. No wheezes or crackles. ABDOMEN: Soft. Bowel sounds are heard. Tenderness on palpation. EXTREMITIES are intact. She has had some significant edema and anasarca. It is somewhat improved. SKIN: Without rash. NEUROLOGIC: Examination is brief but nonfocal. LAB DATA: Reviewed. White count is 9.9, hemoglobin is 7.6, hematocrit 25.5, platelet count 128,000. Sodium 135, potassium 3.7, chloride is 107, CO2 is 24, anion gap is 4. BUN and creatinine were 41 and 1.27. Calcium is 7.8, albumin is 2. Microbiologic studies including sputum, urine and peritoneal fluid are all negative thus far. Chest x-ray shows a pattern of fluid overload with bilateral effusions. Chest x-ray is stable. MEDICATIONS: Reviewed. She is currently on IV Tylenol, lipids, Lasix, subcu heparin, [place], insulin, updrafts, levothyroxine, magnesium replacement, Flagyl, Nubain, Narcan, Zofran, Protonix, Zosyn and potassium replacement. . 1. Postoperative day #5, status post exploratory laparotomy with lysis of adhesions, right hemicolectomy, transverse colon resection, hernia repair, small-bowel resection, and placement of an Prevena wound VAC. 2. Postoperative respiratory failure with routine postoperative ventilator management, status post successful extubation on September 12, 2019. 3. History of colon cancer, colon resection on September 10, 2019. 4. Gastrointestinal bleed. 5. Chronic iron-deficiency anemia. 6. History of ischemic cardiomyopathy. 7. Diastolic heart failure. 8. History of atrial fibrillation. 9. History of pulmonary embolism, status post Briseyda filter placement. 10.Sleep apnea syndrome. 11.Type 2 diabetes mellitus with diabetic neuropathy. 12.Hypertensive heart disease. 13.Status post chronic arterial bypass grafting and aortic valve replacement. 14.History of depression. 15.Gout. 16.Status post pacemaker insertion. 17.Hypothyroidism. PLAN: The patient's medications. This will be cleaned up. She is on some medications that she is currently not getting anymore. That includes Levophed and propofol. The patient will be transferred to the general medical floor. We recommend deep breathing coughing, clearing of secretions, and hourly use of incentive spirometer. She remains on TPN and lipids. Getting insulin 5.5 units an hour. We will continue to follow. Prognosis is guarded. She will need significant rehab post discharge. MMODL / IJN: [id number] /
[2019-09-15] MEDS: PANTOPRAZOLE 40 MG/10 ML VIAL IV SCH (08:36)
[2019-09-15 08:37] LABS: Glucose,Whole Blood 189 mg/dL (75-99)
[2019-09-15] MEDS: HEPARIN SODIUM,PORCINE 5,000 UNIT/ML 1 ML VIAL SQ SCH ×2 (08:51→22:19)
[2019-09-15] MEDS: LEVOTHYROXINE IVP 100 MCG/5 ML VIAL IV SCH (08:51)
[2019-09-15] MEDS ORDERED: FUROSEMIDE 10 MG/ML 4 ML VIAL IV SCH (09:00)
[2019-09-15 11:41] LABS: Glucose,Whole Blood 180 mg/dL (75-99)
[2019-09-15] MEDS ORDERED: ACETAMINOPHEN TAB 325 MG TAB PO PRN (11:48)
[2019-09-15] MEDS: SCOPOLAMINE 1.5MG/72HR PATCH TRANSDERM SCH (12:15)
[2019-09-15] MEDS: METOCLOPRAMIDE 5 MG/ML 2 ML VIAL IVP PRN (12:15)
[2019-09-15] MEDS: traMADol 50 MG TAB PO PRN (12:31)
[2019-09-15 13:37] LABS: Glucose,Whole Blood 207 mg/dL (75-99)
--- NOTE | 2019-09-15 14:41 | P.PN ---
<Maura Villanueva Jessica - Last Filed: 09/15/19 14:37> Subjective Progress Note Date: 09/15/19 CHIEF COMPLAINT: Abdominal pain HISTORY OF PRESENT ILLNESS: Patient is status post exploratory laparotomy with resection of right colon for over 10 cm lesion with invasion to abdominal wall i ncluding small bowel resection for small bowel obstruction performed on 09/10/2019. Patient examined at the bedside in the intensive care unit. Patient reports nausea this morning as well as some dry heaves. She is complaining of abdominal pain. She is hesitant to take the Hills as she is attributing her nausea to the pain medication. She is passing flatus. She reports having a bowel movement this morning. Afebrile. WBC 9.9. Hemoglobin 7.6. PHYSICAL EXAM: VITAL SIGNS: Reviewed GENERAL: Well-developed in no acute distress. HEENT: No sclera icterus. Extraocular movements grossly intact. Moist buccal mucosa. Head is atraumatic, normocephalic. Hears conversational speech. No nasal drainage. NECK: Supple without lymphadenopathy. CHEST: Non-labored respirations and equal bilateral excursions. CARDIOVASCULAR: Regular rate with regular rhythm. Palpable 2+ radial pulses. ABDOMEN: Soft. Midline dressing intact with PREVENA. DEEDEE drain with serosanguineous drainage MUSCULOSKELETAL: No clubbing or cyanosis NEUROLOGIC: No focal or lateralizing signs. Cranial nerves II through XII grossly intact. PSYCH: Appropriate affect. Alert and oriented to person, place and time. SKIN: Well perfused. Good skin turgor. ASSESSMENT: 1. Ascending colon cancer, recurrent metastatic 2. Rectal bleeding PLAN: Continue full liquid diet. Continue TPN as patient's oral intake has been minimal today Continue IV Zofran as needed. Begin Reglan IV PRN. Will add scopolamine patch for nausea Pain control. Patient refusing Hills as it makes her nauseous. She states Tylenol is not strong enough for her pain at this time. We will attempt Ultram. We'll also add small dose of IV Dilaudid if needed. Increase activity as tolerated IS 10 times an hour Nurse practitioner note has been reviewed by physician. Signing provider agrees with the documented findings, assessment, and plan of care. Objective - Vital Signs Vital signs: Vital Signs Temp 98.3 F 09/15/19 11:45 Pulse 93 09/15/19 11:45 Resp 21 09/15/19 09:00 BP 118/47 09/15/19 11:45 Pulse Ox 97 09/15/19 11:45 Intake & Output 09/14/19 09/15/19 09/15/19 18:59 06:59 18:59 Intake Total 2044.941 986.746 678.114 Output Total 1380 1995 825 Balance 664.941 -1008.254 -146.886 Weight 94.6 kg 95 kg Intake: IV 1631 924 627 Fat Emulsion 20% 250 ml @ 84 252 42 21 mls/hr IV Q24H IRENE Rx #:[id number] Magnesium Sulfate-D5w Pmx 100 1 gm In Dextrose/Water 1 100ml.bag @ 100 mls/hr IVPB Q1H IRENE Rx#: [id number] Mvi, Adult No.4 with Vit 870 80 400 K 10 ml Trace (Conc-1Ml/ Dose) 1 ml Parenteral Electrolytes 20 ml In Amino Acid 4.25%-D10w 1, 000 ml @ 65 mls/hr IV .BY DURATION IRENE Rx#: [id number] Normal saline 205 120 70 Piperacillin-Tazobactam 3 100 .375 gm In Sodium Chloride 0.9% 100 ml @ 25 mls/hr IVPB Q12H IRENE Rx# :[id number] Potassium Chloride 10 meq 200 In Water For Injection 1 100ml.bag @ 100 mls/hr IVPB Q1H IRENE Rx#: [id number] Potassium Chloride 10 meq 100 In Water For Injection 1 100ml.bag @ 100 mls/hr IVPB Q1H IRENE Rx#: [id number] metroNIDAZOLE-NS PMX 500 200 100 100 mg In Saline 1 100ml.bag @ 100 mls/hr IVPB Q8HR IRENE Rx#:[id number] pressure bag 72 72 15 Intake, IV Titration 413.941 62.746 51.114 Amount ACETAMINOPHEN IV (For NPO 100 ) 1,000 mg In Empty Bag 1 bag @ 400 mls/hr IVPB Q6HR PRN Rx#:[id number] Insulin Regular 100 unit 63.941 62.746 51.114 In Sodium Chloride 0.9% 100 ml @ Per Protocol IV .Q0M IRENE Rx#:[id number] Sodium Phosphate 10 mmol 250 In Sodium Chloride 0.9% 250 ml @ 125 mls/hr IVPB ONCE ONE Rx#:[id number] Output: Drainage 0 Left Lower Abdomen 0 Urine 1380 1995 825 Other: Voiding Method Indwelling Catheter Indwelling Catheter Indwelling Catheter ABP, PAP, CO, CI - Last Documented Arterial Blood Pressure 105/49 - Labs CBC & Chem 7: 09/15/19 04:04 09/15/19 04:04 Labs: Abnormal Lab Results - Last 24 Hours (Table) 09/14/19 09/14/19 09/14/19 Range/Units 15:58 18:03 20:02 RBC (3.80-5.40) m/uL Hgb (11.4-16.0) gm/dL Hct (34.0-46.0) % MCHC (31.0-37.0) g/dL RDW (11.5-15.5) % Plt Count (150-450) k/uL Sodium (137-145) mmol/L BUN (7-17) mg/dL Creatinine (0.52-1.04) mg/dL Glucose (74-99) mg/dL POC Glucose (mg/dL) 197 H 187 H 200 H (75-99) mg/dL Calcium (8.4-10.2) mg/dL Albumin (3.5-5.0) g/dL 09/14/19 09/15/19 09/15/19 Range/Units 22:00 00:00 02:02 RBC (3.80-5.40) m/uL Hgb (11.4-16.0) gm/dL Hct (34.0-46.0) % MCHC (31.0-37.0) g/dL RDW (11.5-15.5) % Plt Count (150-450) k/uL Sodium (137-145) mmol/L BUN (7-17) mg/dL Creatinine (0.52-1.04) mg/dL Glucose (74-99) mg/dL POC Glucose (mg/dL) 191 H 188 H 162 H (75-99) mg/dL Calcium (8.4-10.2) mg/dL Albumin (3.5-5.0) g/dL 09/15/19 09/15/19 09/15/19 Range/Units 03:57 04:04 04:04 RBC 2.62 L (3.80-5.40) m/uL Hgb 7.6 L (11.4-16.0) gm/dL Hct 25.5 L (34.0-46.0) % MCHC 30.0 L (31.0-37.0) g/dL RDW 18.3 H (11.5-15.5) % Plt Count 128 L (150-450) k/uL Sodium 135 L (137-145) mmol/L BUN 41 H (7-17) mg/dL Creatinine 1.27 H (0.52-1.04) mg/dL Glucose 106 H (74-99) mg/dL POC Glucose (mg/dL) 116 H (75-99) mg/dL Calcium 7.8 L (8.4-10.2) mg/dL Albumin 2.0 L (3.5-5.0) g/dL 09/15/19 09/15/19 09/15/19 Range/Units 06:18 08:26 11:30 RBC (3.80-5.40) m/uL Hgb (11.4-16.0) gm/dL Hct (34.0-46.0) % MCHC (31.0-37.0) g/dL RDW (11.5-15.5) % Plt Count (150-450) k/uL Sodium (137-145) mmol/L BUN (7-17) mg/dL Creatinine (0.52-1.04) mg/dL Glucose (74-99) mg/dL POC Glucose (mg/dL) 179 H 189 H 180 H (75-99) mg/dL Calcium (8.4-10.2) mg/dL Albumin (3.5-5.0) g/dL 09/15/19 Range/Units 13:26 RBC (3.80-5.40) m/uL Hgb (11.4-16.0) gm/dL Hct (34.0-46.0) % MCHC (31.0-37.0) g/dL RDW (11.5-15.5) % Plt Count (150-450) k/uL Sodium (137-145) mmol/L BUN (7-17) mg/dL Creatinine (0.52-1.04) mg/dL Glucose (74-99) mg/dL POC Glucose (mg/dL) 207 H (75-99) mg/dL Calcium (8.4-10.2) mg/dL Albumin (3.5-5.0) g/dL Microbiology - Last 24 Hours (Table) 09/11/19 17:05 Gram Stain - Preliminary Peritoneal Fluid Body Fluid Culture - Preliminary <Kassie Parkinson N - Last Filed: 09/15/19 20:59> Subjective She has moderate water retention. She is passing flatus and having multiple bowel movements. She reports low appetite. Recommend staying away from narcotics for upset stomach. May advance diet as tolerated. Would benefit from diuresis. Also recommend subacute rehab assessment Objective - Vital Signs Vital signs: Vital Signs Temp 98.3 F 09/15/19 11:45 Pulse 90 09/15/19 20:18 Resp 18 09/15/19 15:04 BP 118/47 09/15/19 11:45 Pulse Ox 97 09/15/19 15:38 Intake & Output 09/15/19 09/15/19 09/16/19 06:59 18:59 06:59 Intake Total 986.746 971.114 5.85 Output Total 1994 1025 Balance -1008.254 -53.886 5.85 Weight 95 kg Intake: IV 924 898 Fat Emulsion 20% 250 ml @ 252 63 21 mls/hr IV Q24H [facility]ENE Rx #:[id number] Magnesium Sulfate-D5w Pmx 100 1 gm In Dextrose/Water 1 100ml.bag @ 100 mls/hr IVPB Q1H IRENE Rx#: [id number] Mvi, Adult No.4 with Vit 80 400 K 10 ml Trace (Conc-1Ml/ Dose) 1 ml Parenteral Electrolytes 20 ml In Amino Acid 4.25%-D10w 1, 000 ml @ 65 mls/hr IV .BY DURATION IRENE Rx#: [id number] Normal saline 120 220 Piperacillin-Tazobactam 3 100 100 .375 gm In Sodium Chloride 0.9% 100 ml @ 25 mls/hr IVPB Q12H [facility] Rx# :[id number] Potassium Chloride 10 meq 100 In Water For Injection 1 100ml.bag @ 100 mls/hr IVPB Q1H [facility] Rx#: [id number] metroNIDAZOLE-NS PMX 500 100 100 mg In Saline 1 100ml.bag @ 100 mls/hr IVPB Q8HR [facility] Rx#:[id number] pressure bag 72 15 Intake, IV Titration 62.746 73.114 5.85 Amount Insulin Regular 100 unit 62.746 51.114 In Sodium Chloride 0.9% 100 ml @ Per Protocol IV .Q0M IRENE Rx#:[id number] Insulin Regular 100 unit 22 5.85 In Sodium Chloride 0.9% 100 ml @ Titrate IV .Q0M [facility]ENE Rx#:[id number] Output: Drainage 0 0 Left Lower Abdomen 0 0 Urine 1995 1025 Other: Voiding Method Indwelling Catheter Indwelling Catheter ABP, PAP, CO, CI - Last Documented Arterial Blood Pressure 105/49 - Labs CBC & Chem 7: 09/15/19 04:04 09/15/19 04:04 Labs: Abnormal Lab Results - Last 24 Hours (Table) 09/14/19 09/15/19 09/15/19 Range/Units 22:00 00:00 02:02 RBC (3.80-5.40) m/uL Hgb (11.4-16.0) gm/dL Hct (34.0-46.0) % MCHC (31.0-37.0) g/dL RDW (11.5-15.5) % Plt Count (150-450) k/uL Sodium (137-145) mmol/L BUN (7-17) mg/dL Creatinine (0.52-1.04) mg/dL Glucose (74-99) mg/dL POC Glucose (mg/dL) 191 H 188 H 162 H (75-99) mg/dL Calcium (8.4-10.2) mg/dL Albumin (3.5-5.0) g/dL 09/15/19 09/15/19 09/15/19 Range/Units 03:57 04:04 04:04 RBC 2.62 L (3.80-5.40) m/uL Hgb 7.6 L (11.4-16.0) gm/dL Hct 25.5 L (34.0-46.0) % MCHC 30.0 L (31.0-37.0) g/dL RDW 18.3 H (11.5-15.5) % Plt Count 128 L (150-450) k/uL Sodium 135 L (137-145) mmol/L BUN 41 H (7-17) mg/dL Creatinine 1.27 H (0.52-1.04) mg/dL Glucose 106 H (74-99) mg/dL POC Glucose (mg/dL) 116 H (75-99) mg/dL Calcium 7.8 L (8.4-10.2) mg/dL Albumin 2.0 L (3.5-5.0) g/dL 09/15/19 09/15/19 09/15/19 Range/Units 06:18 08:26 11:30 RBC (3.80-5.40) m/uL Hgb (11.4-16.0) gm/dL Hct (34.0-46.0) % MCHC (31.0-37.0) g/dL RDW (11.5-15.5) % Plt Count (150-450) k/uL Sodium (137-145) mmol/L BUN (7-17) mg/dL Creatinine (0.52-1.04) mg/dL Glucose (74-99) mg/dL POC Glucose (mg/dL) 179 H 189 H 180 H (75-99) mg/dL Calcium (8.4-10.2) mg/dL Albumin (3.5-5.0) g/dL 09/15/19 09/15/19 09/15/19 Range/Units 13:26 15:10 16:08 RBC (3.80-5.40) m/uL Hgb (11.4-16.0) gm/dL Hct (34.0-46.0) % MCHC (31.0-37.0) g/dL RDW (11.5-15.5) % Plt Count (150-450) k/uL Sodium (137-145) mmol/L BUN (7-17) mg/dL Creatinine (0.52-1.04) mg/dL Glucose (74-99) mg/dL POC Glucose (mg/dL) 207 H 191 H 180 H (75-99) mg/dL Calcium (8.4-10.2) mg/dL Albumin (3.5-5.0) g/dL 09/15/19 09/15/19 09/15/19 Range/Units 17:05 18:18 19:04 RBC (3.80-5.40) m/uL Hgb (11.4-16.0) gm/dL Hct (34.0-46.0) % MCHC (31.0-37.0) g/dL RDW (11.5-15.5) % Plt Count (150-450) k/uL Sodium (137-145) mmol/L BUN (7-17) mg/dL Creatinine (0.52-1.04) mg/dL Glucose (74-99) mg/dL POC Glucose (mg/dL) 153 H 116 H 147 H (75-99) mg/dL Calcium (8.4-10.2) mg/dL Albumin (3.5-5.0) g/dL Microbiology - Last 24 Hours (Table) 09/11/19 17:05 Gram Stain - Final Peritoneal Fluid Body Fluid Culture - Final Assessment and Plan (1) Abdominal mass Current Visit: Yes Status: Acute Priority: High Code(s): R19.00 - INTRA- ABD AND PELVIC SWELLING, MASS AND LUMP, UNSP SITE SNOMED Code(s): 229898444 (2) GI bleed Current Visit: Yes Status: Acute Priority: High Code(s): K92.2 - GASTROINTESTINAL HEMORRHAGE, UNSPECIFIED SNOMED Code(s): 71815822 (3) History of colon cancer Current Visit: Yes Status: Acute Code(s): Z85.038 - PERSONAL HISTORY OF MALIGNANT NEOPLASM OF LARGE INTESTINE SNOMED Code(s): 794727741 (4) Anemia Current Visit: Yes Status: Chronic Priority: Medium Code(s): D64.9 - ANEMIA, UNSPECIFIED SNOMED Code(s): 747924689 (5) Aortic stenosis Current Visit: Yes Status: Acute Code(s): I35.0 - NONRHEUMATIC AORTIC (VALVE) STENOSIS SNOMED Code(s): 84973382 (6) Atrial fibrillation Current Visit: No Status: Acute Code(s): I48.91 - UNSPECIFIED ATRIAL FIBRILLATION SNOMED Code(s): 22475825 (7) Atrial flutter Current Visit: No Status: Acute Code(s): I48.92 - UNSPECIFIED ATRIAL FLUTTER SNOMED Code(s): 7294366 (8) Diastolic CHF, acute on chronic Current Visit: No Status: Acute Code(s): I50.33 - ACUTE ON CHRONIC DIASTOLIC (CONGESTIVE) HEART FAILURE SNOMED Code(s): 715905180 (9) Systolic congestive heart failure Current Visit: No Status: Acute Code(s): I50.20 - UNSPECIFIED SYSTOLIC (CONGESTIVE) HEART FAILURE SNOMED Code(s): 69207628 (10) Cancer of ascending colon metastatic to intra-abdominal lymph node Current Visit: Yes Status: Acute Code(s): C18.2 - MALIGNANT NEOPLASM OF ASCENDING COLON; C77.2 - SECONDARY AND UNSP MALIGNANT NEOPLASM OF INTRA-ABD NODES SNOMED Code(s): 34456356
[2019-09-15 15:11] LABS: Glucose,Whole Blood 191 mg/dL (75-99)
[2019-09-15] MEDS: INSULIN ASPART (NovoLOG) 100 UNIT/ML VIAL SQ SCH (15:12)
[2019-09-15 16:09] LABS: Glucose,Whole Blood 180 mg/dL (75-99)
--- NOTE | 2019-09-15 16:32 | PN ---
PROGRESS NOTE Patient is seen for followup for acute kidney injury. She is currently sitting on a bedside chair. Patient is complaining of abdominal pain and nausea. She has not been able to eat much. This morning, blood pressure was 118/47, heart rate 93 per minute. She is afebrile. EXAMINATION OF THE HEART: S1 and S2. EXAMINATION OF LUNGS: Decreased breath sounds at bases. ABDOMEN: Soft, non-tender. Examination of lower extremities shows edema 1+ bilaterally. GOLF COURSE RANGER exam is grossly intact. LABS: Sodium 135, potassium 3.7, chloride 107, BUN 41, creatinine 1.27, albumin 2.0, hemoglobin 7.6 g/dL. ASSESSMENT: 1. Acute kidney injury, acute tubular necrosis, currently improved. Patient remains volume-overloaded. She is maintained on TPN as well. Therefore I will increase the Lasix to 80 mg q.8 hours. 2. Volume overload, history of diastolic heart failure. Increase Lasix. 3. Status post explorative laparotomy and lysis of adhesions, small-bowel resection and right hemicolectomy. 4. History of aortic valve replacement with tissue valve. 5. Metabolic acidosis, currently resolved, status post IV bicarb. PLAN: Increase Lasix to 80 mg q.8 hours. Repeat chest x-ray and repeat labs in a.m. Monitor electrolytes. MMODL / IJN: [id number] /
[2019-09-15 17:06] LABS: Glucose,Whole Blood 153 mg/dL (75-99)
[2019-09-15] MEDS: FAT EMULSION 20% 250 ML IV SCH (17:23)
[2019-09-15] MEDS: FUROSEMIDE 10 MG/ML 10 ML VIAL IV SCH (17:25)
--- NOTE | 2019-09-15 17:53 | PN ---
PROGRESS NOTE DATE OF SERVICE: 09/15/2019 REASON FOR FOLLOWUP: Leukocytosis, abdominal source. INTERVAL HISTORY: The patient is currently afebrile. The patient has been breathing comfortably. Patient's abdominal pain is currently controlled. Denies having any chest pain, shortness of breath or cough. PHYSICAL EXAMINATION: Blood pressure 118/47 with a pulse of 102, temperature 98.3. She is 97% on 3 L nasal cannula. General description is an elderly female up in the chair in no distress. RESPIRATORY SYSTEM: Unlabored breathing with decreased breath sounds at the base. No wheeze. HEART: S1, S2. Regular rate and rhythm. ABDOMEN: Soft. Mildly distended. No guarding or rigidity. LABS: Hemoglobin 7.3. White count normalized to 9.9. BUN of 41, creatinine 1.27. Abdominal culture so far pending. DIAGNOSTIC IMPRESSION AND PLAN: Patient with leukocytosis, possible abdominal source in this patient who did have extensive abdominal surgery. So far culture has been negative. Chest x-ray mostly with pulmonary atelectasis. The patient is covered with Zosyn; to continue and monitor clinical course closely. MMODL / IJN: [id number] / MTDD
[2019-09-15 18:20] LABS: Glucose,Whole Blood 116 mg/dL (75-99)
[2019-09-15 19:05] LABS: Glucose,Whole Blood 147 mg/dL (75-99)
[2019-09-15] MEDS: HYDROmorphone 0.5 MG/0.5 ML SYRINGE IVP PRN ×2 (19:36→22:19)
[2019-09-15 21:06] LABS: Glucose,Whole Blood 185 mg/dL (75-99)
--- NOTE | 2019-09-15 21:15 | P.PN ---
Progress Note - Text Progress Note Date: 09/15/19 Chief Complaint: Lower GI bleed Interval history: This is a very pleasant 89-year-old patient who follows with visiting physicians Dr. Amor. Chronic stable medical conditions include congestive heart failure with EF of 50%, aortic stenosis, mitral regurgitation, mitral stenosis, tricuspid regurgitation, secondary probably hypertension, diabetes, hypertension, osteoarthritis, hypothyroid, blind left eye, coronary artery disease, Briseyda filter.. Patient does use a walker. Patient did have a computed tomography scan of the abdomen on August 30 and did show mass along the lateral wall of the ascending colon and also adjacent soft tissue omental mass and is also another additional mass present in intra-abdominally. Suggestive of metastatic disease. Patient yesterday had some bleeding per the right rectum. And decided to come in. Patient's been having lower abdominal discomfort. She was admitted to the ER. Patient normally does use a walker. Lives alone. Colonoscopy done on September 07 shows ascending colon mass and AV malformation was some slight bleeding. On September 10 patient underwent surgical intervention to include right hemicolectomy, resection of transverse mesocolon tomor, small bowel resection from distal jejunum to ileum over 2 feet, repair of incisional hernia, lysis of adhesions. Patient was extubated on September 12. On TPN. Abdominal incision wound VAC. Today-. ICU. Tired. did transfer from the bed to the chair. Did tolerate a full liquids. Did have a small bowel movement yesterday and this morning. Review of systems: Was done for constitutional, cardiovascular, GI, pulmonary. relevant finding as above Active Medications Acetaminophen (Tylenol Tab) 650 mg PO Q4HR PRN PRN Reason: Fever and/ or Pain Hydrocodone Bitart/Acetaminophen (Clarinda 5-325) 1 each PO Q4HR PRN PRN Reason: Pain Last Admin: 09/14/19 10:53 Dose: 1 each Documented by: Albuterol/Ipratropium (Duoneb 0.5 Mg-3 Mg/3 Ml Soln) 3 ml INHALATION RT-QID [facility]ENE Last Admin: 09/15/19 20:05 Dose: 3 ml Documented by: Albuterol/Ipratropium (Duoneb 0.5 Mg-3 Mg/3 Ml Soln) 3 ml INHALATION RT-Q2H PRN PRN Reason: Shortness Of Breath Or Wheezing Furosemide (Lasix) 80 mg IV Q8HR [facility] Stop: 09/16/19 00:01 Last Admin: 09/15/19 17:25 Dose: 80 mg Documented by: Furosemide (Lasix) 40 mg IV Q8HR [facility] Heparin Sodium (Porcine) (Heparin) 5,000 unit SQ Q12HR [facility] Last Admin: 09/15/19 08:51 Dose: 5,000 unit Documented by: Hydromorphone HCl (Dilaudid) 0.5 mg IVP Q3HR PRN PRN Reason: Pain Last Admin: 09/15/19 19:36 Dose: 0.5 mg Documented by: Metronidazole 500 mg/ IV (Solution) 100 mls @ 100 mls/hr IVPB Q8HR [facility] Last Admin: 09/15/19 18:14 Dose: 100 mls/hr Documented by: Fat Emulsion Intravenous (Lipids 20%) 250 mls @ 21 mls/hr IV Q24H [facility] Last Admin: 09/15/19 17:23 Dose: 21 mls/hr Documented by: Parenteral Vitamin Supplement 10 ml/ Chromium/Copper/Manganese/Seleni/Zn 1 ml/Amino Ac/Electrol/Dextrose/Calcium 1,011 mls @ 80 mls/hr IV .BY DURATION [facility] Last Admin: 09/15/19 02:59 Dose: 80 mls/hr Documented by: Amino Ac/Electrol/Dextrose/Calcium (Clinimix E 4.25%-D10% Solution) 1,000 mls @ 80 mls/hr IV .BY DURATION [facility] Last Admin: 09/15/19 18:15 Dose: 80 mls/hr Documented by: Piperacillin Sod/Tazobactam (Sod 3.375 gm/ Sodium Chloride) 100 mls @ 25 mls/hr IVPB Q8HR [facility] Last Admin: 09/15/19 18:15 Dose: 25 mls/hr Documented by: Insulin Human Regular 100 unit (/ Sodium Chloride) 101 mls @ 0 mls/hr IV .Q0M [facility]; Protocol Last Titration: 09/15/19 19:40 Dose: 2 unit/hr, 2.02 mls/hr Documented by: Levothyroxine Sodium (Synthroid Ivp) 56.25 mcg IV DAILY [facility] Last Admin: 09/15/19 08:51 Dose: 56.25 mcg Documented by: Metoclopramide HCl (Reglan) 10 mg IVP Q6HR PRN PRN Reason: Nausea And Vomiting Last Admin: 09/15/19 12:15 Dose: 10 mg Documented by: Miscellaneous Information (Magnesium Per Protocol) 1 each MISCELLANE DAILY PRN; Protocol PRN Reason: Per Protocol Miscellaneous Information (Potassium Per Protocol) 1 each MISCELLANE DAILY PRN; Protocol PRN Reason: Per Protocol Nalbuphine HCl (Nubain) 2.5 mg IV Q4HR PRN PRN Reason: Itching Naloxone HCl (Narcan) 0.2 mg IV Q2M PRN PRN Reason: Opioid Reversal Ondansetron HCl (Zofran) 4 mg IVP Q6HR PRN PRN Reason: Nausea And Vomiting Last Admin: 09/15/19 08:33 Dose: 4 mg Documented by: Pantoprazole Sodium (Protonix) 40 mg IV DAILY [facility] Last Admin: 09/15/19 08:36 Dose: 40 mg Documented by: Scopolamine (Transderm-Scop 1.5mg/72hr Patch) 1 patch TRANSDERM Q72H [facility] Last Admin: 09/15/19 12:15 Dose: 1 patch Documented by: Tramadol HCl (Ultram) 50 mg PO TID PRN PRN Reason: Mild Pain Last Admin: 09/15/19 12:31 Dose: 50 mg Documented by: Physical examination: VITAL SIGNS: 98.3, 93, 18, 1180 47, 97% on 3 L GENERAL: Sitting up in a chair, awake, tired EYES: Pupils equal. Conjunctiva normal. HEENT: External appearance of nose and ears normal, oral cavity grossly normal. NECK: JVD not raised; masses not palpable. HEART: First and second heart sounds are normal; no edema. LUNGS: Respiratory rate normal; decreased breath sounds. ABDOMEN: Some tenderness, dressing over the wound, bowel sounds sluggish, mild tenderness no guarding or rigidity. DEEDEE drain.- Minimal output PSYCH: Alert and oriented x3; mood and affect normal. MUSCULOSKELETAL: Evidence of OA especially in the hands and knees INVESTIGATIONS, reviewed in the clinical context: white count 9.9 hemoglobin 7.6 platelets 128 bun 41 creatinine 1.27 Previous testing White count 9.6 hemoglobin 9.2 platelets 240 progression 4.7 BUN 73 creatinine 1.79 Computed tomography scan of the abdomen-results noted as above Assessment: -Ascending colon mass, per colonoscopy, -right hemicolectomy, resection of transverse mesocolon tumor, small bowel resection from distal jejunum to ileum over 2feet, repair of incisional hernia, lysis of adhesions. 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 Having bowel movements. Weak and tired. Patient be moved out of the ICU. Looking to transfer to rehab shortly.on IV Zosyn.
[2019-09-15 22:17] LABS: Glucose,Whole Blood 201 mg/dL (75-99)
[2019-09-16 00:05] LABS: Glucose,Whole Blood 184 mg/dL (75-99)
[2019-09-16] MEDS: FUROSEMIDE 10 MG/ML 10 ML VIAL IV SCH (01:12)
[2019-09-16 01:46] LABS: Glucose,Whole Blood 206 mg/dL (75-99)
[2019-09-16] MEDS: metroNIDAZOLE-NS PMX 500 MG in SALINE 1 100ML.BAG IVPB SCH ×4 (01:46→22:40)
[2019-09-16] MEDS: PIPERACILLIN-TAZOBACTAM 3.375 GM in SODIUM CHLORIDE 0.9% 100 ML IVPB SCH ×3 (02:54→17:11)
[2019-09-16 03:48] LABS: Glucose,Whole Blood 202 mg/dL (75-99)
[2019-09-16] MEDS: ONDANSETRON 4 MG/2 ML VIAL IVP PRN (05:46)
[2019-09-16] MEDS: HYDROmorphone 0.5 MG/0.5 ML SYRINGE IVP PRN ×3 (05:46→22:40)
[2019-09-16] MEDS: 1: MVI, ADULT NO.4 WITH VIT K 10 ML, TRACE (CONC-1ML/DOSE) 1 ML in AMINO ACID 4.25%-D10W IV SCH ×6 (05:47→17:11)
[2019-09-16 06:00] LABS: Glucose,Whole Blood 210 mg/dL (75-99)
[2019-09-16 07:28] LABS: Glucose,Whole Blood 241 mg/dL (75-99)
[2019-09-16 08:08] LABS: Glucose,Whole Blood 204 mg/dL (75-99)
[2019-09-16] MEDS: IPRATROPIUM-ALBUTEROL 3 ML NEB INHALATION SCH ×4 (08:27→19:59)
[2019-09-16 08:34] LABS: Anisocytosis Slight; HCT 27.1 % (34.0-46.0); HGB 8.2 gm/dL (11.4-16.0); Hypochromasia Marked; MCH 29.5 pg (25.0-35.0); MCHC 30.4 g/dL (31.0-37.0); MCV 97.2 fL (80.0-100.0); Macrocytosis Slight; Mean Platelet Volume 10.5; Platelet Count 137 k/uL (150-450); Poikilocytosis Moderate; RBC 2.79 m/uL (3.80-5.40); RDW 18.2 % (11.5-15.5); WBC 12.7 k/uL (3.8-10.6)
[2019-09-16 08:45] LABS: Magnesium 2.3 mg/dL (1.6-2.3); Phosphorus 3.7 mg/dL (2.5-4.5)
[2019-09-16] MEDS: FUROSEMIDE 10 MG/ML 4 ML VIAL IV SCH ×2 (08:51→17:15)
[2019-09-16] MEDS: HEPARIN SODIUM,PORCINE 5,000 UNIT/ML 1 ML VIAL SQ SCH ×2 (08:51→20:02)
[2019-09-16] MEDS: traMADol 50 MG TAB PO PRN ×2 (08:52→14:05)
[2019-09-16] MEDS: PANTOPRAZOLE 40 MG/10 ML VIAL IV SCH (08:52)
[2019-09-16 08:54] LABS: Glucose,Whole Blood 181 mg/dL (75-99)
[2019-09-16] MEDS: LEVOTHYROXINE IVP 100 MCG/5 ML VIAL IV SCH (09:17)
[2019-09-16 10:08] LABS: Glucose,Whole Blood 193 mg/dL (75-99)
[2019-09-16 10:55] VITALS: BMI 35.9
[2019-09-16 11:01] LABS: Glucose,Whole Blood 203 mg/dL (75-99)
--- NOTE | 2019-09-16 11:49 | P.PN ---
Subjective Progress Note Date: 09/16/19 Principal diagnosis: Rectal bleeding secondary to invading colon mass. Status post exploratory laparotomy with lysis of adhesions, extensive right hemicolectomy, resection transverse colon, small bowel resection, repair of incisional hernia, placement of incisional wound Prevena system. The patient is seen today 09/16/2019 in follow-up on the regular medical floor. She is currently resting in bed. Awake and alert in no acute distress. Her pain is currently fairly well controlled. She is still quite weak. No worsening shortness of breath, cough or congestion. She is maintaining O2 saturations in the low 90s on 3 L/m per nasal cannula. Afebrile. Urine culture reveals no growth. Sputum culture reveals no growth. Peritoneal fluid revealing no growth. White count 12.7. Hemoglobin 8.2. Platelet count 137,000. Sodium 137. Potassium 4.0. Creatinine 1.37. She is continued on TPN and lipids. She remains on bronchodilators, IV diuretics, antibiotics in the form of Zosyn along with Flagyl. Currently in a negative balance. She does have continued anasarca. Objective - Vital Signs Vital signs: Vital Signs Temp 98.3 F 09/16/19 05:05 Pulse 92 09/16/19 08:48 Resp 16 09/16/19 07:46 BP 146/79 09/16/19 05:05 Pulse Ox 93 L 09/16/19 05:05 Intake & Output 09/15/19 09/16/19 09/16/19 18:59 06:59 18:59 Intake Total 0984.340 0493.620 284.105 Output Total 1025 2700 750 Balance 957.114 333.620 -465.895 Weight 95 kg Intake: IV 898 368 100 Fat Emulsion 20% 250 ml @ 63 168 21 mls/hr IV Q24H [facility] Rx #:[id number] Mvi, Adult No.4 with Vit 400 K 10 ml Trace (Conc-1Ml/ Dose) 1 ml Parenteral Electrolytes 20 ml In Amino Acid 4.25%-D10w 1, 000 ml @ 65 mls/hr IV .BY DURATION [facility] Rx#: [id number] Normal saline 220 Piperacillin-Tazobactam 3 100 200 100 .375 gm In Sodium Chloride 0.9% 100 ml @ 25 mls/hr IVPB Q12H [facility] Rx# :[id number] metroNIDAZOLE-NS PMX 500 100 mg In Saline 1 100ml.bag @ 100 mls/hr IVPB Q8HR [facility] Rx#:[id number] pressure bag 15 Intake, IV Titration 1084.114 531.620 184.105 Amount Amino Acid 4.25%-D10w+ 160 Lytes*E* 1,000 ml @ 80 mls/hr IV .BY DURATION [facility] Rx#:[id number] Insulin Regular 100 unit 51.114 In Sodium Chloride 0.9% 100 ml @ Per Protocol IV .Q0M [facility] Rx#:[id number] Insulin Regular 100 unit 22 51.620 24.105 In Sodium Chloride 0.9% 100 ml @ Titrate IV .Q0M [facility] Rx#:[id number] Mvi, Adult No.4 with Vit 1011 480 K 10 ml Trace (Conc-1Ml/ Dose) 1 ml In Amino Acid 4.25%-D10w+Lytes*E* 1,000 ml @ 80 mls/hr IV .BY DURATION [facility] Rx#: [id number] Oral 1200 TPN/PPN 640 Fat Emulsion 20% 250 ml @ 640 21 mls/hr IV Q24H [facility] Rx #:[id number] Lipid 294 Fat Emulsion 20% 250 ml @ 294 21 mls/hr IV Q24H [facility] Rx #:[id number] Output: Drainage 0 0 0 Left Lower Abdomen 0 0 0 Urine 1025 2700 750 Other: Voiding Method Indwelling Catheter Bedside Commode Indwelling Catheter ABP, PAP, CO, CI - Last Documented Arterial Blood Pressure 105/49 - Exam GENERAL EXAM: Alert, pleasant 89-year-old female patient, fairly comfortable in no apparent distress. On 3 L nasal cannula. HEAD: Normocephalic. EYES: Normal reaction of pupils, equal size. NOSE: Clear with pink turbinates. THROAT: No erythema or exudates. NECK: No masses, no JVD. CHEST: No chest wall deformity. LUNGS: Equal air entry with few scattered rhonchi. CVS: S1 and S2 normal with no audible murmur, regular rhythm. ABDOMEN: Abdominal binder in place, no guarding or rigidity. SPINE: No scoliosis or deformity SKIN: No rashes CENTRAL NERVOUS SYSTEM: No focal deficits, tone is normal in all 4 extremities. EXTREMITIES: There is 1-2+ peripheral edema. No clubbing, no cyanosis. Peripheral pulses are intact. - Labs CBC & Chem 7: 09/16/19 07:31 09/16/19 07:31 Labs: Abnormal Lab Results - Last 24 Hours (Table) 09/15/19 09/15/19 09/15/19 Range/Units 11:30 13:26 15:10 WBC (3.8-10.6) k/uL RBC (3.80-5.40) m/uL Hgb (11.4-16.0) gm/dL Hct (34.0-46.0) % MCHC (31.0-37.0) g/dL RDW (11.5-15.5) % Plt Count (150-450) k/uL BUN (7-17) mg/dL Creatinine (0.52-1.04) mg/dL Glucose (74-99) mg/dL POC Glucose (mg/dL) 180 H 207 H 191 H (75-99) mg/dL Calcium (8.4-10.2) mg/dL 09/15/19 09/15/19 09/15/19 Range/Units 16:08 17:05 18:18 WBC (3.8-10.6) k/uL RBC (3.80-5.40) m/uL Hgb (11.4-16.0) gm/dL Hct (34.0-46.0) % MCHC (31.0-37.0) g/dL RDW (11.5-15.5) % Plt Count (150-450) k/uL BUN (7-17) mg/dL Creatinine (0.52-1.04) mg/dL Glucose (74-99) mg/dL POC Glucose (mg/dL) 180 H 153 H 116 H (75-99) mg/dL Calcium (8.4-10.2) mg/dL 09/15/19 09/15/19 09/15/19 Range/Units 19:04 21:05 22:06 WBC (3.8-10.6) k/uL RBC (3.80-5.40) m/uL Hgb (11.4-16.0) gm/dL Hct (34.0-46.0) % MCHC (31.0-37.0) g/dL RDW (11.5-15.5) % Plt Count (150-450) k/uL BUN (7-17) mg/dL Creatinine (0.52-1.04) mg/dL Glucose (74-99) mg/dL POC Glucose (mg/dL) 147 H 185 H 201 H (75-99) mg/dL Calcium (8.4-10.2) mg/dL 09/16/19 09/16/19 09/16/19 Range/Units 00:04 01:45 03:46 WBC (3.8-10.6) k/uL RBC (3.80-5.40) m/uL Hgb (11.4-16.0) gm/dL Hct (34.0-46.0) % MCHC (31.0-37.0) g/dL RDW (11.5-15.5) % Plt Count (150-450) k/uL BUN (7-17) mg/dL Creatinine (0.52-1.04) mg/dL Glucose (74-99) mg/dL POC Glucose (mg/dL) 184 H 206 H 202 H (75-99) mg/dL Calcium (8.4-10.2) mg/dL 09/16/19 09/16/19 09/16/19 Range/Units 05:58 07:27 07:31 WBC (3.8-10.6) k/uL RBC (3.80-5.40) m/uL Hgb (11.4-16.0) gm/dL Hct (34.0-46.0) % MCHC (31.0-37.0) g/dL RDW (11.5-15.5) % Plt Count (150-450) k/uL BUN 44 H (7-17) mg/dL Creatinine 1.37 H (0.52-1.04) mg/dL Glucose 178 H (74-99) mg/dL POC Glucose (mg/dL) 210 H 241 H (75-99) mg/dL Calcium 8.0 L (8.4-10.2) mg/dL 09/16/19 09/16/19 09/16/19 Range/Units 07:31 08:06 08:54 WBC 12.7 H (3.8-10.6) k/uL RBC 2.79 L (3.80-5.40) m/uL Hgb 8.2 L (11.4-16.0) gm/dL Hct 27.1 L (34.0-46.0) % MCHC 30.4 L (31.0-37.0) g/dL RDW 18.2 H (11.5-15.5) % Plt Count 137 L (150-450) k/uL BUN (7-17) mg/dL Creatinine (0.52-1.04) mg/dL Glucose (74-99) mg/dL POC Glucose (mg/dL) 204 H 181 H (75-99) mg/dL Calcium (8.4-10.2) mg/dL 09/16/19 09/16/19 Range/Units 10:06 10:58 WBC (3.8-10.6) k/uL RBC (3.80-5.40) m/uL Hgb (11.4-16.0) gm/dL Hct (34.0-46.0) % MCHC (31.0-37.0) g/dL RDW (11.5-15.5) % Plt Count (150-450) k/uL BUN (7-17) mg/dL Creatinine (0.52-1.04) mg/dL Glucose (74-99) mg/dL POC Glucose (mg/dL) 193 H 203 H (75-99) mg/dL Calcium (8.4-10.2) mg/dL Microbiology - Last 24 Hours (Table) 09/11/19 17:05 Gram Stain - Final Peritoneal Fluid Body Fluid Culture - Final Assessment and Plan Assessment: #1 Colonic mass status post exploratory laparotomy with lysis of adhesions, right hemicolectomy, transverse colon resection, hernia repair, small bowel resection, placement of preventive wound VAC. Postoperative day #6. Biopsies positive for poorly differentiated adenocarcinoma. #2 Postoperative respiratory failure with routine postoperative ventilator management successfully extubated on 09/12/2018. Currently on 3 L/m per nasal cannula. #3 History of GI bleed. #4 Chronic iron deficiency anemia. #5 Ischemic cardiomyopathy. #6 Diastolic congestive heart failure. #7 History of atrial fibrillation. #8 History of pulmonary embolism, status post Saxis filter placement #9 Sleep apnea syndrome. #10 Diabetes mellitus, type II. #11 Diabetic neuropathy. #12 Hypertension. 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 #14 History of depression. #15 History of gout. #16 Status post permanent pacemaker implantation. #17 Hypothyroidism. Plan: The patient was seen and evaluated by Dr. Lugo. She is again encouraged regarding the increased use of the incentive spirometer and cough and deep breathing exercises. We will titrate down the FiO2 as tolerated. Increase her activity as tolerated. Continue the current treatment plan. We'll continue to follow make further recommendations to send her clinical status. I, the cosigning physician, performed a history & physical examination of the patient. Lungs sounds few scattered rhonchi. Maintaining good O2 saturations in the 90s on 3 L/m per nasal cannula. I discussed the assessment and plan of care with my nurse practitioner, Mary Kunz. I attest to the above note as dictated by her.
[2019-09-16 12:21] LABS: Glucose,Whole Blood 205 mg/dL (75-99)
[2019-09-16 12:58] LABS: Glucose,Whole Blood 194 mg/dL (75-99)
--- NOTE | 2019-09-16 14:04 | P.PN ---
<Maura Villanueva Jessica - Last Filed: 09/16/19 14:02> Subjective Progress Note Date: 09/16/19 CHIEF COMPLAINT: Abdominal pain HISTORY OF PRESENT ILLNESS: Patient is status post exploratory laparotomy with resection of right colon for over 10 cm lesion with invasion to abdominal wall i ncluding small bowel resection for small bowel obstruction performed on 09/10/2019. Patient examined at the bedside. She complains of abdominal pain. She is unable to tolerate [place] due to nausea despite antibiotics. She is taking Ultram for pain which she states is helping some. She denies nausea or vomiting currently. She is on a regular diet but has decreased appetite. TPN is infusing. PHYSICAL EXAM: VITAL SIGNS: Reviewed GENERAL: Well-developed in no acute distress. HEENT: No sclera icterus. Extraocular movements grossly intact. Moist buccal mucosa. Head is atraumatic, normocephalic. Hears conversational speech. No nasal drainage. NECK: Supple without lymphadenopathy. CHEST: Non-labored respirations and equal bilateral excursions. CARDIOVASCULAR: Regular rate with regular rhythm. Palpable 2+ radial pulses. ABDOMEN: Soft. Midline dressing intact with PREVENA. DEEDEE drain with serosanguineous drainage MUSCULOSKELETAL: No clubbing or cyanosis NEUROLOGIC: No focal or lateralizing signs. Cranial nerves II through XII grossly intact. PSYCH: Appropriate affect. Alert and oriented to person, place and time. SKIN: Well perfused. Good skin turgor. ASSESSMENT: 1. Ascending colon cancer, recurrent metastatic 2. Rectal bleeding PLAN: Continue current diet. Continue TPN as patient's oral intake is inadequate Continue IV Zofran as needed. continue IV Reglan as needed. Continue scopolamine patch. Pain control. Patient unable to tolerate narcotics due to nausea. Continue Ultram as needed Increase activity as tolerated IS 10 times an hour Nurse practitioner note has been reviewed by physician. Signing provider agrees with the documented findings, assessment, and plan of care. Objective - Vital Signs Vital signs: Vital Signs Temp 97.6 F 09/16/19 11:28 Pulse 92 09/16/19 12:32 Resp 18 09/16/19 11:28 BP 128/64 09/16/19 11:28 Pulse Ox 94 L 09/16/19 11:28 Intake & Output 09/15/19 09/16/19 09/16/19 18:59 06:59 18:59 Intake Total 3096.835 9932.620 1306.696 Output Total 1025 2700 1450 Balance 957.114 333.620 -143.304 Weight 95 kg Intake: IV 898 368 350 Fat Emulsion 20% 250 ml @ 63 168 21 mls/hr IV Q24H [facility] Rx #:[id number] Mvi, Adult No.4 with Vit 400 K 10 ml Trace (Conc-1Ml/ Dose) 1 ml Parenteral Electrolytes 20 ml In Amino Acid 4.25%-D10w 1, 000 ml @ 65 mls/hr IV .BY DURATION [facility] Rx#: [id number] Normal saline 220 250 Piperacillin-Tazobactam 3 100 200 100 .375 gm In Sodium Chloride 0.9% 100 ml @ 25 mls/hr IVPB Q12H [facility] Rx# :[id number] metroNIDAZOLE-NS PMX 500 100 mg In Saline 1 100ml.bag @ 100 mls/hr IVPB Q8HR [facility] Rx#:[id number] pressure bag 15 Intake, IV Titration 1084.114 531.620 856.696 Amount Amino Acid 4.25%-D10w+ 520 Lytes*E* 1,000 ml @ 80 mls/hr IV .BY DURATION [facility] Rx#:[id number] Insulin Regular 100 unit 51.114 In Sodium Chloride 0.9% 100 ml @ Per Protocol IV .Q0M [facility] Rx#:[id number] Insulin Regular 100 unit 22 51.620 36.696 In Sodium Chloride 0.9% 100 ml @ Titrate IV .Q0M [facility] Rx#:[id number] Mvi, Adult No.4 with Vit 1011 480 K 10 ml Trace (Conc-1Ml/ Dose) 1 ml In Amino Acid 4.25%-D10w+Lytes*E* 1,000 ml @ 80 mls/hr IV .BY DURATION [facility] Rx#: [id number] Piperacillin-Tazobactam 3 100 .375 gm In Sodium Chloride 0.9% 100 ml @ 25 mls/hr IVPB Q8HR [facility] Rx# :[id number] metroNIDAZOLE-NS PMX 500 200 mg In Saline 1 100ml.bag @ 100 mls/hr IVPB ONCE ONE Rx#:[id number] Oral 1200 100 TPN/PPN 640 Fat Emulsion 20% 250 ml @ 640 21 mls/hr IV Q24H [facility] Rx #:[id number] Lipid 294 Fat Emulsion 20% 250 ml @ 294 21 mls/hr IV Q24H [facility] Rx #:[id number] Output: Drainage 0 0 0 Left Lower Abdomen 0 0 0 Urine 1025 2700 1450 Other: Voiding Method Indwelling Catheter Bedside Commode Indwelling Catheter ABP, PAP, CO, CI - Last Documented Arterial Blood Pressure 105/49 - Labs CBC & Chem 7: 09/16/19 07:31 09/16/19 07:31 Labs: Abnormal Lab Results - Last 24 Hours (Table) 09/15/19 09/15/19 09/15/19 Range/Units 15:10 16:08 17:05 WBC (3.8-10.6) k/uL RBC (3.80-5.40) m/uL Hgb (11.4-16.0) gm/dL Hct (34.0-46.0) % MCHC (31.0-37.0) g/dL RDW (11.5-15.5) % Plt Count (150-450) k/uL BUN (7-17) mg/dL Creatinine (0.52-1.04) mg/dL Glucose (74-99) mg/dL POC Glucose (mg/dL) 191 H 180 H 153 H (75-99) mg/dL Calcium (8.4-10.2) mg/dL 09/15/19 09/15/19 09/15/19 Range/Units 18:18 19:04 21:05 WBC (3.8-10.6) k/uL RBC (3.80-5.40) m/uL Hgb (11.4-16.0) gm/dL Hct (34.0-46.0) % MCHC (31.0-37.0) g/dL RDW (11.5-15.5) % Plt Count (150-450) k/uL BUN (7-17) mg/dL Creatinine (0.52-1.04) mg/dL Glucose (74-99) mg/dL POC Glucose (mg/dL) 116 H 147 H 185 H (75-99) mg/dL Calcium (8.4-10.2) mg/dL 09/15/19 09/16/19 09/16/19 Range/Units 22:06 00:04 01:45 WBC (3.8-10.6) k/uL RBC (3.80-5.40) m/uL Hgb (11.4-16.0) gm/dL Hct (34.0-46.0) % MCHC (31.0-37.0) g/dL RDW (11.5-15.5) % Plt Count (150-450) k/uL BUN (7-17) mg/dL Creatinine (0.52-1.04) mg/dL Glucose (74-99) mg/dL POC Glucose (mg/dL) 201 H 184 H 206 H (75-99) mg/dL Calcium (8.4-10.2) mg/dL 09/16/19 09/16/19 09/16/19 Range/Units 03:46 05:58 07:27 WBC (3.8-10.6) k/uL RBC (3.80-5.40) m/uL Hgb (11.4-16.0) gm/dL Hct (34.0-46.0) % MCHC (31.0-37.0) g/dL RDW (11.5-15.5) % Plt Count (150-450) k/uL BUN (7-17) mg/dL Creatinine (0.52-1.04) mg/dL Glucose (74-99) mg/dL POC Glucose (mg/dL) 202 H 210 H 241 H (75-99) mg/dL Calcium (8.4-10.2) mg/dL 09/16/19 09/16/19 09/16/19 Range/Units 07:31 07:31 08:06 WBC 12.7 H (3.8-10.6) k/uL RBC 2.79 L (3.80-5.40) m/uL Hgb 8.2 L (11.4-16.0) gm/dL Hct 27.1 L (34.0-46.0) % MCHC 30.4 L (31.0-37.0) g/dL RDW 18.2 H (11.5-15.5) % Plt Count 137 L (150-450) k/uL BUN 44 H (7-17) mg/dL Creatinine 1.37 H (0.52-1.04) mg/dL Glucose 178 H (74-99) mg/dL POC Glucose (mg/dL) 204 H (75-99) mg/dL Calcium 8.0 L (8.4-10.2) mg/dL 09/16/19 09/16/19 09/16/19 Range/Units 08:54 10:06 10:58 WBC (3.8-10.6) k/uL RBC (3.80-5.40) m/uL Hgb (11.4-16.0) gm/dL Hct (34.0-46.0) % MCHC (31.0-37.0) g/dL RDW (11.5-15.5) % Plt Count (150-450) k/uL BUN (7-17) mg/dL Creatinine (0.52-1.04) mg/dL Glucose (74-99) mg/dL POC Glucose (mg/dL) 181 H 193 H 203 H (75-99) mg/dL Calcium (8.4-10.2) mg/dL 09/16/19 09/16/19 Range/Units 12:19 12:56 WBC (3.8-10.6) k/uL RBC (3.80-5.40) m/uL Hgb (11.4-16.0) gm/dL Hct (34.0-46.0) % MCHC (31.0-37.0) g/dL RDW (11.5-15.5) % Plt Count (150-450) k/uL BUN (7-17) mg/dL Creatinine (0.52-1.04) mg/dL Glucose (74-99) mg/dL POC Glucose (mg/dL) 205 H 194 H (75-99) mg/dL Calcium (8.4-10.2) mg/dL Microbiology - Last 24 Hours (Table) 09/11/19 17:05 Gram Stain - Final Peritoneal Fluid Body Fluid Culture - Final <Kassie Parkinson - Last Filed: 09/16/19 21:35> Subjective She had ice cream and had some diet. She complains mostly of moderate edema. Dressings intact. Wound VAC system functioning. Agreeable for transfer to rehab when medically stable. Objective - Vital Signs Vital signs: Vital Signs Temp 97.6 F 09/16/19 11:28 Pulse 90 09/16/19 20:11 Resp 16 09/16/19 16:47 BP 128/64 09/16/19 11:28 Pulse Ox 94 L 09/16/19 11:28 Intake & Output 09/16/19 09/16/19 09/17/19 06:59 18:59 06:59 Intake Total 4033.620 1601.673 7.491 Output Total 2700 1450 Balance 1333.620 151.673 7.491 Weight 95 kg Intake: IV 368 494 Fat Emulsion 20% 250 ml @ 168 44 21 mls/hr IV Q24H [facility] Rx #:[id number] Normal saline 250 Piperacillin-Tazobactam 3 200 100 .375 gm In Sodium Chloride 0.9% 100 ml @ 25 mls/hr IVPB Q12H [facility] Rx# :[id number] metroNIDAZOLE-NS PMX 500 100 mg In Saline 1 100ml.bag @ 100 mls/hr IVPB Q8HR [facility] Rx#:[id number] Intake, IV Titration 1531.620 957.673 7.491 Amount Amino Acid 4.25%-D10w+ 1000 520 Lytes*E* 1,000 ml @ 80 mls/hr IV .BY DURATION [facility] Rx#:[id number] Fat Emulsion 20% 250 ml @ 84 21 mls/hr IV Q24H [facility] Rx #:[id number] Insulin Regular 100 unit 51.620 53.673 7.491 In Sodium Chloride 0.9% 100 ml @ Titrate IV .Q0M [facility] Rx#:[id number] Mvi, Adult No.4 with Vit 480 K 10 ml Trace (Conc-1Ml/ Dose) 1 ml In Amino Acid 4.25%-D10w+Lytes*E* 1,000 ml @ 80 mls/hr IV .BY DURATION [facility] Rx#: [id number] Piperacillin-Tazobactam 3 100 .375 gm In Sodium Chloride 0.9% 100 ml @ 25 mls/hr IVPB Q8HR [facility] Rx# :[id number] metroNIDAZOLE-NS PMX 500 200 mg In Saline 1 100ml.bag @ 100 mls/hr IVPB ONCE ONE Rx#:[id number] Oral 1200 150 TPN/PPN 640 Fat Emulsion 20% 250 ml @ 640 21 mls/hr IV Q24H [facility] Rx #:[id number] Lipid 294 Fat Emulsion 20% 250 ml @ 294 21 mls/hr IV Q24H [facility] Rx #:[id number] Output: Drainage 0 0 Left Lower Abdomen 0 0 Urine 2700 1450 Other: Voiding Method Bedside Commode Indwelling Catheter ABP, PAP, CO, CI - Last Documented Arterial Blood Pressure 105/49 - Labs CBC & Chem 7: 09/16/19 07:31 09/16/19 07:31 Labs: Abnormal Lab Results - Last 24 Hours (Table) 09/15/19 09/16/19 09/16/19 Range/Units 22:06 00:04 01:45 WBC (3.8-10.6) k/uL RBC (3.80-5.40) m/uL Hgb (11.4-16.0) gm/dL Hct (34.0-46.0) % MCHC (31.0-37.0) g/dL RDW (11.5-15.5) % Plt Count (150-450) k/uL BUN (7-17) mg/dL Creatinine (0.52-1.04) mg/dL Glucose (74-99) mg/dL POC Glucose (mg/dL) 201 H 184 H 206 H (75-99) mg/dL Calcium (8.4-10.2) mg/dL 09/16/19 09/16/19 09/16/19 Range/Units 03:46 05:58 07:27 WBC (3.8-10.6) k/uL RBC (3.80-5.40) m/uL Hgb (11.4-16.0) gm/dL Hct (34.0-46.0) % MCHC (31.0-37.0) g/dL RDW (11.5-15.5) % Plt Count (150-450) k/uL BUN (7-17) mg/dL Creatinine (0.52-1.04) mg/dL Glucose (74-99) mg/dL POC Glucose (mg/dL) 202 H 210 H 241 H (75-99) mg/dL Calcium (8.4-10.2) mg/dL 09/16/19 09/16/19 09/16/19 Range/Units 07:31 07:31 08:06 WBC 12.7 H (3.8-10.6) k/uL RBC 2.79 L (3.80-5.40) m/uL Hgb 8.2 L (11.4-16.0) gm/dL Hct 27.1 L (34.0-46.0) % MCHC 30.4 L (31.0-37.0) g/dL RDW 18.2 H (11.5-15.5) % Plt Count 137 L (150-450) k/uL BUN 44 H (7-17) mg/dL Creatinine 1.37 H (0.52-1.04) mg/dL Glucose 178 H (74-99) mg/dL POC Glucose (mg/dL) 204 H (75-99) mg/dL Calcium 8.0 L (8.4-10.2) mg/dL 09/16/19 09/16/19 09/16/19 Range/Units 08:54 10:06 10:58 WBC (3.8-10.6) k/uL RBC (3.80-5.40) m/uL Hgb (11.4-16.0) gm/dL Hct (34.0-46.0) % MCHC (31.0-37.0) g/dL RDW (11.5-15.5) % Plt Count (150-450) k/uL BUN (7-17) mg/dL Creatinine (0.52-1.04) mg/dL Glucose (74-99) mg/dL POC Glucose (mg/dL) 181 H 193 H 203 H (75-99) mg/dL Calcium (8.4-10.2) mg/dL 09/16/19 09/16/19 09/16/19 Range/Units 12:19 12:56 14:04 WBC (3.8-10.6) k/uL RBC (3.80-5.40) m/uL Hgb (11.4-16.0) gm/dL Hct (34.0-46.0) % MCHC (31.0-37.0) g/dL RDW (11.5-15.5) % Plt Count (150-450) k/uL BUN (7-17) mg/dL Creatinine (0.52-1.04) mg/dL Glucose (74-99) mg/dL POC Glucose (mg/dL) 205 H 194 H 201 H (75-99) mg/dL Calcium (8.4-10.2) mg/dL 09/16/19 09/16/19 09/16/19 Range/Units 15:21 16:34 17:05 WBC (3.8-10.6) k/uL RBC (3.80-5.40) m/uL Hgb (11.4-16.0) gm/dL Hct (34.0-46.0) % MCHC (31.0-37.0) g/dL RDW (11.5-15.5) % Plt Count (150-450) k/uL BUN (7-17) mg/dL Creatinine (0.52-1.04) mg/dL Glucose (74-99) mg/dL POC Glucose (mg/dL) 207 H 202 H 225 H (75-99) mg/dL Calcium (8.4-10.2) mg/dL 09/16/19 09/16/19 Range/Units 18:06 19:53 WBC (3.8-10.6) k/uL RBC (3.80-5.40) m/uL Hgb (11.4-16.0) gm/dL Hct (34.0-46.0) % MCHC (31.0-37.0) g/dL RDW (11.5-15.5) % Plt Count (150-450) k/uL BUN (7-17) mg/dL Creatinine (0.52-1.04) mg/dL Glucose (74-99) mg/dL POC Glucose (mg/dL) 213 H 196 H (75-99) mg/dL Calcium (8.4-10.2) mg/dL Microbiology - Last 24 Hours (Table) 09/11/19 17:05 Gram Stain - Final Peritoneal Fluid Body Fluid Culture - Final Assessment and Plan (1) Abdominal mass Current Visit: Yes Status: Acute Priority: High Code(s): R19.00 - INTRA- ABD AND PELVIC SWELLING, MASS AND LUMP, UNSP SITE SNOMED Code(s): 850182085 (2) GI bleed Current Visit: Yes Status: Acute Priority: High Code(s): K92.2 - GASTROINTESTINAL HEMORRHAGE, UNSPECIFIED SNOMED Code(s): 53755257 (3) History of colon cancer Current Visit: Yes Status: Acute Code(s): Z85.038 - PERSONAL HISTORY OF MALIGNANT NEOPLASM OF LARGE INTESTINE SNOMED Code(s): 512775091 (4) Anemia Current Visit: Yes Status: Chronic Priority: Medium Code(s): D64.9 - ANEMIA, UNSPECIFIED SNOMED Code(s): 810289313 (5) Aortic stenosis Current Visit: Yes Status: Acute Code(s): I35.0 - NONRHEUMATIC AORTIC (VALVE) STENOSIS SNOMED Code(s): 63774627 (6) Atrial fibrillation Current Visit: No Status: Acute Code(s): I48.91 - UNSPECIFIED ATRIAL FIBRILLATION SNOMED Code(s): 73984015 (7) Atrial flutter Current Visit: No Status: Acute Code(s): I48.92 - UNSPECIFIED ATRIAL FLUTTER SNOMED Code(s): 7546089 (8) Diastolic CHF, acute on chronic Current Visit: No Status: Acute Code(s): I50.33 - ACUTE ON CHRONIC DIASTOLIC (CONGESTIVE) HEART FAILURE SNOMED Code(s): 236828763 (9) Systolic congestive heart failure Current Visit: No Status: Acute Code(s): I50.20 - UNSPECIFIED SYSTOLIC (CONGESTIVE) HEART FAILURE SNOMED Code(s): 76184822 (10) Cancer of ascending colon metastatic to intra-abdominal lymph node Current Visit: Yes Status: Acute Code(s): C18.2 - MALIGNANT NEOPLASM OF ASCE NDING COLON; C77.2 - SECONDARY AND UNSP MALIGNANT NEOPLASM OF INTRA-ABD NODES SNOMED Code(s): 41495873
[2019-09-16] MEDS: METOCLOPRAMIDE 5 MG/ML 2 ML VIAL IVP PRN (14:05)
[2019-09-16 14:06] LABS: Glucose,Whole Blood 201 mg/dL (75-99)
[2019-09-16] MEDS: SALT AND SODA MOUTHWASH 1,000 ML PO SCH ×2 (14:11→17:14)
[2019-09-16] MEDS: FAT EMULSION 20% 250 ML IV SCH (14:12)
[2019-09-16 15:23] LABS: Glucose,Whole Blood 207 mg/dL (75-99)
[2019-09-16 16:35] LABS: Glucose,Whole Blood 202 mg/dL (75-99)
[2019-09-16 17:06] LABS: Glucose,Whole Blood 225 mg/dL (75-99)
--- NOTE | 2019-09-16 17:20 | PN ---
PROGRESS NOTE DATE OF SERVICE: 09/16/2019 REASON FOR FOLLOWUP: Leukocytosis. INTERVAL HISTORY: The patient is currently afebrile. The patient is breathing comfortably. The patient has some cough but is not bringing up any sputum. Still has some abdominal pain, but no worsening. No chest pain. No shortness of breath. No vomiting. PHYSICAL EXAMINATION: Blood pressure 128/64 with a pulse of 102, temperature 97.6. She is 94% on 2 L nasal cannula. General description is an elderly female up in the chair in no distress. RESPIRATORY SYSTEM: Unlabored breathing with decreased breath sounds at the base. No wheeze. HEART: S1, S2. Regular rate and rhythm. ABDOMEN: Soft. Slightly distended. LABS: Hemoglobin 8.2, white count 12.7, BUN of 44, creatinine 0.37. DIAGNOSTIC IMPRESSION AND PLAN: Patient with leukocytosis which is likely reactive in the patient who did have extensive abdominal surgery. Initial white count slight upward trend noticed today. That will be monitored closely. Chest x-ray did show some basilar atelectasis but no definite pneumonia. The patient is covered with Zosyn; to continue and monitor clinical course closely. MMODL / IJN: [id number] /
--- NOTE | 2019-09-16 17:24 | P.PN ---
Subjective Progress Note Date: 09/16/19 Principal diagnosis: Chief Complaint: Lower GI bleed Interval history: This is a very pleasant 89-year-old patient who follows with visiting physicians Dr. Amor. Chronic stable medical conditions include congestive heart failure with EF of 50%, aortic stenosis, mitral regurgitation, mitral stenosis, tricuspid regurgitation, secondary probably hypertension, diabetes, hypertension, osteoarthritis, hypothyroid, blind left eye, coronary artery disease, [place] filter.. Patient does use a walker. Patient did have a computed tomography scan of the abdomen on August 30 and did show mass along the lateral wall of the ascending colon and also adjacent soft tissue omental mass and is also another additional mass present in intra-abdominally. S uggestive of metastatic disease. Patient yesterday had some bleeding per the right rectum. And decided to come in. Patient's been having lower abdominal discomfort. She was admitted to the ER. Patient normally does use a walker. Lives alone. Colonoscopy done on September 07 shows ascending colon mass and AV malformation was some slight bleeding. On September 10 patient underwent surgical intervention to include right hemicolectomy, resection of transverse mesocolon tomor, small bowel resection from distal jejunum to ileum over 2 feet, repair of incisional hernia, lysis of adhesions. Patient was extubated on September 12. On TPN. Abdominal incision wound VAC. Today-. Moved to medical floor. Sitting up. Took liquid diet. Had a bowel movement. Breathing stable. Review of systems: Was done for constitutional, cardiovascular, GI, pulmonary. relevant finding as above Active Medications Acetaminophen (Tylenol Tab) 650 mg PO Q4HR PRN PRN Reason: Fever and/ or Pain Hydrocodone Bitart/Acetaminophen (Bronson 5-325) 1 each PO Q4HR PRN PRN Reason: Pain Last Admin: 09/14/19 10:53 Dose: 1 each Documented by: Albuterol/Ipratropium (Duoneb 0.5 Mg-3 Mg/3 Ml Soln) 3 ml INHALATION RT-QID [facility] Last Admin: 09/16/19 15:43 Dose: 3 ml Documented by: Albuterol/Ipratropium (Duoneb 0.5 Mg-3 Mg/3 Ml Soln) 3 ml INHALATION RT-Q2H PRN PRN Reason: Shortness Of Breath Or Wheezing Furosemide (Lasix) 40 mg IV Q8HR [facility] Last Admin: 09/16/19 08:51 Dose: 40 mg Documented by: Heparin Sodium (Porcine) (Heparin) 5,000 unit SQ Q12HR [facility] Last Admin: 09/16/19 08:51 Dose: 5,000 unit Documented by: Hydromorphone HCl (Dilaudid) 0.5 mg IVP Q3HR PRN PRN Reason: Pain Last Admin: 09/16/19 08:51 Dose: 0.5 mg Documented by: Metronidazole 500 mg/ IV (Solution) 100 mls @ 100 mls/hr IVPB Q8HR [facility] Last Admin: 09/16/19 14:44 Dose: 100 mls/hr Documented by: Fat Emulsion Intravenous (Lipids 20%) 250 mls @ 21 mls/hr IV Q24H [facility] Last Admin: 09/16/19 14:12 Dose: 21 mls/hr Documented by: Parenteral Vitamin Supplement 10 ml/ Chromium/Copper/Manganese/Seleni/Zn 1 ml/Amino Ac/Electrol/Dextrose/Calcium 1,011 mls @ 80 mls/hr IV .BY DURATION [facility] Last Admin: 09/16/19 05:47 Dose: 80 mls/hr Documented by: Amino Ac/Electrol/Dextrose/Calcium (Clinimix E 4.25%-D10% Solution) 1,000 mls @ 80 mls/hr IV .BY DURATION [facility] Last Admin: 09/16/19 17:11 Dose: 80 mls/hr Documented by: Piperacillin Sod/Tazobactam (Sod 3.375 gm/ Sodium Chloride) 100 mls @ 25 mls/hr IVPB Q8HR [facility] Last Admin: 09/16/19 17:11 Dose: 25 mls/hr Documented by: Insulin Human Regular 100 unit (/ Sodium Chloride) 101 mls @ 0 mls/hr IV .Q0M [facility]; Protocol Last Titration: 09/16/19 14:08 Dose: 5 unit/hr, 5.05 mls/hr Documented by: Levothyroxine Sodium (Synthroid Ivp) 56.25 mcg IV DAILY [facility] Last Admin: 09/16/19 09:17 Dose: 56.25 mcg Documented by: Metoclopramide HCl (Reglan) 10 mg IVP Q6HR PRN PRN Reason: Nausea And Vomiting Last Admin: 09/16/19 14:05 Dose: 10 mg Documented by: Miscellaneous Information (Magnesium Per Protocol) 1 each MISCELLANE DAILY PRN; Protocol PRN Reason: Per Protocol Miscellaneous Information (Potassium Per Protocol) 1 each MISCELLANE DAILY PRN; Protocol PRN Reason: Per Protocol Nalbuphine HCl (Nubain) 2.5 mg IV Q4HR PRN PRN Reason: Itching Naloxone HCl (Narcan) 0.2 mg IV Q2M PRN PRN Reason: Opioid Reversal Ondansetron HCl (Zofran) 4 mg IVP Q6HR PRN PRN Reason: Nausea And Vomiting Last Admin: 09/16/19 05:46 Dose: 4 mg Documented by: Pantoprazole Sodium (Protonix) 40 mg IV DAILY [facility] Last Admin: 09/16/19 08:52 Dose: 40 mg Documented by: Scopolamine (Transderm-Scop 1.5mg/72hr Patch) 1 patch TRANSDERM Q72H [facility] Last Admin: 09/15/19 12:15 Dose: 1 patch Documented by: Sodium Bicarbonate () 10 ml PO AC-TID [facility] Last Admin: 09/16/19 14:11 Dose: Not Given Documented by: Tramadol HCl (Ultram) 50 mg PO TID PRN PRN Reason: Mild Pain Last Admin: 09/16/19 14:05 Dose: 50 mg Documented by: Physical examination: VITAL SIGNS: 97.6, 102, 18, 128/64, 94% on 2 L GENERAL: Sitting up in a chair, awake, tired EYES: Pupils equal. Conjunctiva normal. HEENT: External appearance of nose and ears normal, oral cavity grossly normal. NECK: JVD not raised; masses not palpable. HEART: First and second heart sounds are normal; no edema. LUNGS: Respiratory rate normal; decreased breath sounds. ABDOMEN: Some tenderness, dressing over the wound, bowel sounds sluggish, mild tenderness no guarding or rigidity. DEEDEE drain.- Minimal output PSYCH: Alert and oriented x3; mood and affect normal. 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 Remains on IV antibiotics. Hopefully transfer to [facility] on Thursday. Objective - Vital Signs Vital signs: Vital Signs Temp 97.6 F 09/16/19 11:28 Pulse 96 09/16/19 15:55 Resp 16 09/16/19 16:47 BP 128/64 09/16/19 11:28 Pulse Ox 94 L 09/16/19 11:28 Intake & Output 09/15/19 09/16/19 09/16/19 18:59 06:59 18:59 Intake Total 7218.212 7592.620 1586.716 Output Total 1025 2700 1450 Balance 957.114 333.620 136.716 Weight 95 kg Intake: IV 898 368 494 Fat Emulsion 20% 250 ml @ 63 168 44 21 mls/hr IV Q24H [facility] Rx #:[id number] Mvi, Adult No.4 with Vit 400 K 10 ml Trace (Conc-1Ml/ Dose) 1 ml Parenteral Electrolytes 20 ml In Amino Acid 4.25%-D10w 1, 000 ml @ 65 mls/hr IV .BY DURATION [facility] Rx#: [id number] Normal saline 220 250 Piperacillin-Tazobactam 3 100 200 100 .375 gm In Sodium Chloride 0.9% 100 ml @ 25 mls/hr IVPB Q12H [facility] Rx# :[id number] metroNIDAZOLE-NS PMX 500 100 100 mg In Saline 1 100ml.bag @ 100 mls/hr IVPB Q8HR [facility] Rx#:[id number] pressure bag 15 Intake, IV Titration 1084.114 531.620 942.716 Amount Amino Acid 4.25%-D10w+ 520 Lytes*E* 1,000 ml @ 80 mls/hr IV .BY DURATION [facility] Rx#:[id number] Fat Emulsion 20% 250 ml @ 84 21 mls/hr IV Q24H [facility] Rx #:[id number] Insulin Regular 100 unit 51.114 In Sodium Chloride 0.9% 100 ml @ Per Protocol IV .Q0M [facility] Rx#:[id number] Insulin Regular 100 unit 22 51.620 38.716 In Sodium Chloride 0.9% 100 ml @ Titrate IV .Q0M [facility] Rx#:[id number] Mvi, Adult No.4 with Vit 1011 480 K 10 ml Trace (Conc-1Ml/ Dose) 1 ml In Amino Acid 4.25%-D10w+Lytes*E* 1,000 ml @ 80 mls/hr IV .BY DURATION [facility] Rx#: [id number] Piperacillin-Tazobactam 3 100 .375 gm In Sodium Chloride 0.9% 100 ml @ 25 mls/hr IVPB Q8HR [facility] Rx# :[id number] metroNIDAZOLE-NS PMX 500 200 mg In Saline 1 100ml.bag @ 100 mls/hr IVPB ONCE ONE Rx#:[id number] Oral 1200 150 TPN/PPN 640 Fat Emulsion 20% 250 ml @ 640 21 mls/hr IV Q24H [facility] Rx #:[id number] Lipid 294 Fat Emulsion 20% 250 ml @ 294 21 mls/hr IV Q24H [facility] Rx #:[id number] Output: Drainage 0 0 0 Left Lower Abdomen 0 0 0 Urine 1025 2700 1450 Other: Voiding Method Indwelling Catheter Bedside Commode Indwelling Catheter ABP, PAP, CO, CI - Last Documented Arterial Blood Pressure 105/49 - Labs CBC & Chem 7: 09/16/19 07:31 09/16/19 07:31 Labs: Abnormal Lab Results - Last 24 Hours (Table) 09/15/19 09/15/19 09/15/19 Range/Units 17:05 18:18 19:04 WBC (3.8-10.6) k/uL RBC (3.80-5.40) m/uL Hgb (11.4-16.0) gm/dL Hct (34.0-46.0) % MCHC (31.0-37.0) g/dL RDW (11.5-15.5) % Plt Count (150-450) k/uL BUN (7-17) mg/dL Creatinine (0.52-1.04) mg/dL Glucose (74-99) mg/dL POC Glucose (mg/dL) 153 H 116 H 147 H (75-99) mg/dL Calcium (8.4-10.2) mg/dL 09/15/19 09/15/19 09/16/19 Range/Units 21:05 22:06 00:04 WBC (3.8-10.6) k/uL RBC (3.80-5.40) m/uL Hgb (11.4-16.0) gm/dL Hct (34.0-46.0) % MCHC (31.0-37.0) g/dL RDW (11.5-15.5) % Plt Count (150-450) k/uL BUN (7-17) mg/dL Creatinine (0.52-1.04) mg/dL Glucose (74-99) mg/dL POC Glucose (mg/dL) 185 H 201 H 184 H (75-99) mg/dL Calcium (8.4-10.2) mg/dL 09/16/19 09/16/19 09/16/19 Range/Units 01:45 03:46 05:58 WBC (3.8-10.6) k/uL RBC (3.80-5.40) m/uL Hgb (11.4-16.0) gm/dL Hct (34.0-46.0) % MCHC (31.0-37.0) g/dL RDW (11.5-15.5) % Plt Count (150-450) k/uL BUN (7-17) mg/dL Creatinine (0.52-1.04) mg/dL Glucose (74-99) mg/dL POC Glucose (mg/dL) 206 H 202 H 210 H (75-99) mg/dL Calcium (8.4-10.2) mg/dL 09/16/19 09/16/19 09/16/19 Range/Units 07:27 07:31 07:31 WBC 12.7 H (3.8-10.6) k/uL RBC 2.79 L (3.80-5.40) m/uL Hgb 8.2 L (11.4-16.0) gm/dL Hct 27.1 L (34.0-46.0) % MCHC 30.4 L (31.0-37.0) g/dL RDW 18.2 H (11.5-15.5) % Plt Count 137 L (150-450) k/uL BUN 44 H (7-17) mg/dL Creatinine 1.37 H (0.52-1.04) mg/dL Glucose 178 H (74-99) mg/dL POC Glucose (mg/dL) 241 H (75-99) mg/dL Calcium 8.0 L (8.4-10.2) mg/dL 09/16/19 09/16/19 09/16/19 Range/Units 08:06 08:54 10:06 WBC (3.8-10.6) k/uL RBC (3.80-5.40) m/uL Hgb (11.4-16.0) gm/dL Hct (34.0-46.0) % MCHC (31.0-37.0) g/dL RDW (11.5-15.5) % Plt Count (150-450) k/uL BUN (7-17) mg/dL Creatinine (0.52-1.04) mg/dL Glucose (74-99) mg/dL POC Glucose (mg/dL) 204 H 181 H 193 H (75-99) mg/dL Calcium (8.4-10.2) mg/dL 09/16/19 09/16/19 09/16/19 Range/Units 10:58 12:19 12:56 WBC (3.8-10.6) k/uL RBC (3.80-5.40) m/uL Hgb (11.4-16.0) gm/dL Hct (34.0-46.0) % MCHC (31.0-37.0) g/dL RDW (11.5-15.5) % Plt Count (150-450) k/uL BUN (7-17) mg/dL Creatinine (0.52-1.04) mg/dL Glucose (74-99) mg/dL POC Glucose (mg/dL) 203 H 205 H 194 H (75-99) mg/dL Calcium (8.4-10.2) mg/dL 09/16/19 09/16/19 09/16/19 Range/Units 14:04 15:21 16:34 WBC (3.8-10.6) k/uL RBC (3.80-5.40) m/uL Hgb (11.4-16.0) gm/dL Hct (34.0-46.0) % MCHC (31.0-37.0) g/dL RDW (11.5-15.5) % Plt Count (150-450) k/uL BUN (7-17) mg/dL Creatinine (0.52-1.04) mg/dL Glucose (74-99) mg/dL POC Glucose (mg/dL) 201 H 207 H 202 H (75-99) mg/dL Calcium (8.4-10.2) mg/dL Microbiology - Last 24 Hours (Table) 09/11/19 17:05 Gram Stain - Final Peritoneal Fluid Body Fluid Culture - Final
[2019-09-16] MEDS: INSULIN REGULAR 100 UNIT in SODIUM CHLORIDE 0.9% 100 ML IV SCH (17:33)
--- NOTE | 2019-09-16 17:59 | PN ---
PROGRESS NOTE Patient is seen for followup for acute kidney injury. Her renal function continues to improve. Serum creatinine is down to 1.37. Diuretics were increased yesterday, as patient continues to show evidence of volume overload. She has had good urine output; however, she is maintained on TPN. [id number] urine output was about 3.7 L. PHYSICAL EXAMINATION: On examination today, blood pressure was a 146/79, heart rate 102 per minute. Patient is afebrile. EXAMINATION OF THE HEART: S1 and S2. EXAMINATION OF LUNGS: Bilateral breath sounds are heard. Decreased breath sounds at bases. ABDOMEN: Soft, but tenderness noted. Examination of lower extremities shows edema 1+ bilaterally. ASSEMBLY INSTRUCTIONS WRITER exam is grossly intact. LABS: Sodium 137, potassium 4.0, chloride 104, BUN 44, creatinine 1.37, hemoglobin 8.2 g/dL. ASSESSMENT: 1. Acute kidney injury, acute tubular necrosis and secondary to hypotension and hypoperfusion, currently improved. 2. Volume overload with history of diastolic heart failure. Lasix was increased yesterday. I will continue with the current dose of diuretics. 3. Colonic mass, status post explorative laparotomy with lysis of adhesions, right hemicolectomy, hernia repair, small-bowel resection, currently with wound V.A.C., postoperative day number 6. 4. Hypoxic respiratory failure, currently extubated. 5. History of atrial fibrillation with controlled ventricular response. 6. History of coronary artery bypass surgery and aortic valve replacement with tissue valve. 7. Hypokalemia, status post replacement. PLAN: Continue with current dose of IV Lasix. Try to wean down TPN. Repeat chest x-ray in a.m. We can discontinue the sodium bicarb. MMODL / IJN: [id number] /
[2019-09-16 18:07] LABS: Glucose,Whole Blood 213 mg/dL (75-99)
[2019-09-16 19:53] LABS: Glucose,Whole Blood 196 mg/dL (75-99)
[2019-09-16 22:22] LABS: Glucose,Whole Blood 215 mg/dL (75-99)
[2019-09-17] MEDS: PIPERACILLIN-TAZOBACTAM 3.375 GM in SODIUM CHLORIDE 0.9% 100 ML IVPB SCH ×3 (00:02→17:24)
[2019-09-17] MEDS: FUROSEMIDE 10 MG/ML 4 ML VIAL IV SCH ×3 (00:02→16:39)
[2019-09-17 00:07] LABS: Glucose,Whole Blood 209 mg/dL (75-99)
[2019-09-17 02:18] LABS: Glucose,Whole Blood 205 mg/dL (75-99)
[2019-09-17 04:24] LABS: Glucose,Whole Blood 163 mg/dL (75-99)
[2019-09-17] MEDS: ONDANSETRON 4 MG/2 ML VIAL IVP PRN (05:50)
[2019-09-17] MEDS: 1: MVI, ADULT NO.4 WITH VIT K 10 ML, TRACE (CONC-1ML/DOSE) 1 ML in AMINO ACID 4.25%-D10W IV SCH ×9 (05:50→17:29)
[2019-09-17 06:06] LABS: Glucose,Whole Blood 161 mg/dL (75-99)
[2019-09-17 07:28] LABS: Anisocytosis Slight; HCT 27.3 % (34.0-46.0); HGB 8.3 gm/dL (11.4-16.0); Hypochromasia Marked; MCH 29.3 pg (25.0-35.0); MCHC 30.3 g/dL (31.0-37.0); MCV 96.9 fL (80.0-100.0); Macrocytosis Slight; Mean Platelet Volume 11.3; Platelet Count 149 k/uL (150-450); Poikilocytosis Slight; RBC 2.82 m/uL (3.80-5.40); RDW 17.6 % (11.5-15.5); WBC 13.6 k/uL (3.8-10.6)
[2019-09-17 07:43] LABS: Calcium 8.2 mg/dL (8.4-10.2); Magnesium 2.2 mg/dL (1.6-2.3); Phosphorus 4.1 mg/dL (2.5-4.5); Potassium 4.1 mmol/L (3.5-5.1)
[2019-09-17 08:11] LABS: Glucose,Whole Blood 165 mg/dL (75-99)
[2019-09-17] MEDS: metroNIDAZOLE-NS PMX 500 MG in SALINE 1 100ML.BAG IVPB SCH ×2 (08:26→16:38)
[2019-09-17] MEDS: LEVOTHYROXINE IVP 100 MCG/5 ML VIAL IV SCH (08:29)
[2019-09-17] MEDS: HEPARIN SODIUM,PORCINE 5,000 UNIT/ML 1 ML VIAL SQ SCH ×2 (08:29→20:47)
[2019-09-17] MEDS: PANTOPRAZOLE 40 MG/10 ML VIAL IV SCH (08:29)
[2019-09-17] MEDS: SALT AND SODA MOUTHWASH 1,000 ML PO SCH ×3 (08:30→18:09)
[2019-09-17] MEDS: IPRATROPIUM-ALBUTEROL 3 ML NEB INHALATION SCH ×4 (08:56→20:16)
[2019-09-17 10:10] LABS: Glucose,Whole Blood 200 mg/dL (75-99)
--- NOTE | 2019-09-17 10:45 | PN ---
PROGRESS NOTE The patient is seen for followup for acute kidney injury and volume overload. The patient remains on IV Lasix. It was increased to 80 mg q.8 hours and it is now back down to 40 mg Q 8 hours. The patient is maintained on TPN as well. Therefore, she has not been able to achieve significant negative balance. However for the last 24 hours, she was -367 mL. Overall, nausea is somewhat improved. PHYSICAL EXAMINATION: On examination today, blood pressure 128/68, heart rate 104 per minute, patient is afebrile. Examination of the heart S1, S2. Examination of the lungs, bilateral breath sounds are heard. ABDOMEN: Soft, nontender. Examination of lower extremities shows no significant edema. SERVICENOW ADMINISTRATOR DEVELOPER exam grossly intact. LABS: Sodium 138, potassium 4.1, BUN 48, creatinine 1.23, hemoglobin 8.3 g/dL. ASSESSMENT: 1. Acute kidney injury, currently improved, mainly acute tubular necrosis and some degree of cardiorenal syndrome. 2. Congestive heart failure, diastolic dysfunction, acute on top of chronic, currently stable and improved. Patient remains on IV Lasix which I will continue to try and keep her in negative balance. 3. Status post explorative laparotomy, hemicolectomy, lysis of adhesions and small- bowel resection. 4. History of atrial fibrillation, controlled ventricular response. PLAN: Continue IV Lasix. Decrease TPN once patient is eating. MMODL / IJN: [id number] /
--- NOTE | 2019-09-17 11:53 | P.PN ---
Subjective Progress Note Date: 09/17/19 Principal diagnosis: Bowel obstruction Patient complains of fatigue. Mild nausea. Poor oral intake. White blood cell count 13.6. She is afebrile. Objective - Vital Signs Vital signs: Vital Signs Temp 97.8 F 09/17/19 04:26 Pulse 104 H 09/17/19 09:12 Resp 18 09/17/19 08:00 BP 128/68 09/17/19 04:26 Pulse Ox 95 09/17/19 04:26 Intake & Output 09/16/19 09/17/19 09/17/19 18:59 06:59 18:59 Intake Total 2612.673 1051.728 277.1 Output Total 1450 2582 305 Balance 1162.673 -1530.272 -27.9 Weight 95 kg Intake: IV 494 584 100 Fat Emulsion 20% 250 ml @ 44 84 21 mls/hr IV Q24H [facility] Rx #:[id number] Normal saline 250 80 Piperacillin-Tazobactam 3 100 .375 gm In Sodium Chloride 0.9% 100 ml @ 25 mls/hr IVPB Q12H [facility] Rx# :[id number] metroNIDAZOLE-NS PMX 500 100 100 100 mg In Saline 1 100ml.bag @ 100 mls/hr IVPB Q8HR [facility] Rx#:[id number] pressure bag 320 Intake, IV Titration 1968.673 47.728 117.1 Amount Amino Acid 4.25%-D10w+ 520 Lytes*E* 1,000 ml @ 80 mls/hr IV .BY DURATION [facility] Rx#:[id number] Fat Emulsion 20% 250 ml @ 84 21 mls/hr IV Q24H [facility] Rx #:[id number] Insulin Regular 100 unit 53.673 47.728 17.1 In Sodium Chloride 0.9% 100 ml @ Titrate IV .Q0M [facility] Rx#:[id number] Mvi, Adult No.4 with Vit 1011 K 10 ml Trace (Conc-1Ml/ Dose) 1 ml In Amino Acid 4.25%-D10w+Lytes*E* 1,000 ml @ 80 mls/hr IV .BY DURATION [facility] Rx#: [id number] Piperacillin-Tazobactam 3 100 100 .375 gm In Sodium Chloride 0.9% 100 ml @ 25 mls/hr IVPB Q8HR [facility] Rx# :[id number] metroNIDAZOLE-NS PMX 500 200 mg In Saline 1 100ml.bag @ 100 mls/hr IVPB ONCE ONE Rx#:[id number] Oral 150 420 60 Output: Drainage 0 2 5 Left Lower Abdomen 0 2 5 Urine 1450 2550 Stool 30 300 Emesis 0 Other: Voiding Method Bedside Commode Indwelling Catheter Indwelling Catheter Indwelling Catheter # Bowel Movements 0 ABP, PAP, CO, CI - Last Documented Arterial Blood Pressure 105/49 - Exam Abdomen: Soft, mild distention, mild right-sided tenderness, dressing clean and dry - Labs CBC & Chem 7: 09/17/19 07:05 09/17/19 07:05 Labs: Abnormal Lab Results - Last 24 Hours (Table) 09/16/19 09/16/19 09/16/19 Range/Units 12:19 12:56 14:04 WBC (3.8-10.6) k/uL RBC (3.80-5.40) m/uL Hgb (11.4-16.0) gm/dL Hct (34.0-46.0) % MCHC (31.0-37.0) g/dL RDW (11.5-15.5) % Plt Count (150-450) k/uL BUN (7-17) mg/dL Creatinine (0.52-1.04) mg/dL Glucose (74-99) mg/dL POC Glucose (mg/dL) 205 H 194 H 201 H (75-99) mg/dL Calcium (8.4-10.2) mg/dL 09/16/19 09/16/19 09/16/19 Range/Units 15:21 16:34 17:05 WBC (3.8-10.6) k/uL RBC (3.80-5.40) m/uL Hgb (11.4-16.0) gm/dL Hct (34.0-46.0) % MCHC (31.0-37.0) g/dL RDW (11.5-15.5) % Plt Count (150-450) k/uL BUN (7-17) mg/dL Creatinine (0.52-1.04) mg/dL Glucose (74-99) mg/dL POC Glucose (mg/dL) 207 H 202 H 225 H (75-99) mg/dL Calcium (8.4-10.2) mg/dL 09/16/19 09/16/19 09/16/19 Range/Units 18:06 19:53 22:20 WBC (3.8-10.6) k/uL RBC (3.80-5.40) m/uL Hgb (11.4-16.0) gm/dL Hct (34.0-46.0) % MCHC (31.0-37.0) g/dL RDW (11.5-15.5) % Plt Count (150-450) k/uL BUN (7-17) mg/dL Creatinine (0.52-1.04) mg/dL Glucose (74-99) mg/dL POC Glucose (mg/dL) 213 H 196 H 215 H (75-99) mg/dL Calcium (8.4-10.2) mg/dL 09/17/19 09/17/19 09/17/19 Range/Units 00:06 02:16 04:22 WBC (3.8-10.6) k/uL RBC (3.80-5.40) m/uL Hgb (11.4-16.0) gm/dL Hct (34.0-46.0) % MCHC (31.0-37.0) g/dL RDW (11.5-15.5) % Plt Count (150-450) k/uL BUN (7-17) mg/dL Creatinine (0.52-1.04) mg/dL Glucose (74-99) mg/dL POC Glucose (mg/dL) 209 H 205 H 163 H (75-99) mg/dL Calcium (8.4-10.2) mg/dL 09/17/19 09/17/19 09/17/19 Range/Units 05:45 07:05 07:05 WBC 13.6 H (3.8-10.6) k/uL RBC 2.82 L (3.80-5.40) m/uL Hgb 8.3 L (11.4-16.0) gm/dL Hct 27.3 L (34.0-46.0) % MCHC 30.3 L (31.0-37.0) g/dL RDW 17.6 H (11.5-15.5) % Plt Count 149 L (150-450) k/uL BUN 48 H (7-17) mg/dL Creatinine 1.23 H (0.52-1.04) mg/dL Glucose 148 H (74-99) mg/dL POC Glucose (mg/dL) 161 H (75-99) mg/dL Calcium 8.2 L (8.4-10.2) mg/dL 09/17/19 09/17/19 Range/Units 08:09 10:09 WBC (3.8-10.6) k/uL RBC (3.80-5.40) m/uL Hgb (11.4-16.0) gm/dL Hct (34.0-46.0) % MCHC (31.0-37.0) g/dL RDW (11.5-15.5) % Plt Count (150-450) k/uL BUN (7-17) mg/dL Creatinine (0.52-1.04) mg/dL Glucose (74-99) mg/dL POC Glucose (mg/dL) 165 H 200 H (75-99) mg/dL Calcium (8.4-10.2) mg/dL Assessment and Plan (1) Abdominal mass Narrative/Plan: Continue diet as tolerated. Increase activity. Weaning TPN as able. Possible rehab Thursday. Current Visit: Yes Status: Acute Priority: High Code(s): R19.00 - INTRA- ABD AND PELVIC SWELLING, MASS AND LUMP, UNSP SITE SNOMED Code(s): 715625438
[2019-09-17 13:09] LABS: Glucose,Whole Blood 233 mg/dL (75-99)
--- NOTE | 2019-09-17 13:30 | P.PN ---
Subjective Progress Note Date: 09/17/19 Principal diagnosis: Rectal bleeding secondary to invading colon mass. Status post exploratory laparotomy with lysis of adhesions, extensive right hemicolectomy, resection transverse colon, small bowel resection, repair of incisional hernia, placement of incisional wound Prevena system. The patient is seen today 09/16/2019 in follow-up on the regular medical floor. She is currently resting in bed. Awake and alert in no acute distress. Her pain is currently fairly well controlled. She is still quite weak. No worsening shortness of breath, cough or congestion. She is maintaining O2 saturations in the low 90s on 3 L/m per nasal cannula. Afebrile. Urine culture reveals no growth. Sputum culture reveals no growth. Peritoneal fluid revealing no growth. White count 12.7. Hemoglobin 8.2. Platelet count 137,000. Sodium 137. Potassium 4.0. Creatinine 1.37. She is continued on TPN and lipids. She remains on bronchodilators, IV diuretics, antibiotics in the form of Zosyn along with Flagyl. Currently in a negative balance. She does have continued anasarca. The patient is seen today 09/17/2019 in follow-up on the regular medical floor. She is doing a bit better today. Currently sitting up in a chair at the bedside. More awake and alert. Maintaining O2 saturations in the low 90s on 3 L/m per nasal cannula. She's afebrile. Hemodynamically stable. Sputum culture reveals no growth. Urine culture reveals no growth. Peritoneal fluid reveals no growth. White count 13.6. Hemoglobin 8.3. Creatinine 1.23. Objective - Vital Signs Vital signs: Vital Signs Temp 97.1 F L 09/17/19 12:00 Pulse 116 H 09/17/19 12:00 Resp 17 09/17/19 12:00 BP 139/60 09/17/19 12:00 Pulse Ox 92 L 09/17/19 12:00 Intake & Output 09/16/19 09/17/19 09/17/19 18:59 06:59 18:59 Intake Total 2612.673 1051.728 287.433 Output Total 1450 2582 305 Balance 1162.673 -1530.272 -17.567 Weight 95 kg Intake: IV 494 584 100 Fat Emulsion 20% 250 ml @ 44 84 21 mls/hr IV Q24H [facility] Rx #:[id number] Normal saline 250 80 Piperacillin-Tazobactam 3 100 .375 gm In Sodium Chloride 0.9% 100 ml @ 25 mls/hr IVPB Q12H [facility] Rx# :[id number] metroNIDAZOLE-NS PMX 500 100 100 100 mg In Saline 1 100ml.bag @ 100 mls/hr IVPB Q8HR [facility] Rx#:[id number] pressure bag 320 Intake, IV Titration 1968.673 47.728 127.433 Amount Amino Acid 4.25%-D10w+ 520 Lytes*E* 1,000 ml @ 80 mls/hr IV .BY DURATION [facility] Rx#:[id number] Fat Emulsion 20% 250 ml @ 84 21 mls/hr IV Q24H [facility] Rx #:[id number] Insulin Regular 100 unit 53.673 47.728 27.433 In Sodium Chloride 0.9% 100 ml @ Titrate IV .Q0M [facility] Rx#:[id number] Mvi, Adult No.4 with Vit 1011 K 10 ml Trace (Conc-1Ml/ Dose) 1 ml In Amino Acid 4.25%-D10w+Lytes*E* 1,000 ml @ 80 mls/hr IV .BY DURATION [facility] Rx#: [id number] Piperacillin-Tazobactam 3 100 100 .375 gm In Sodium Chloride 0.9% 100 ml @ 25 mls/hr IVPB Q8HR [facility] Rx# :[id number] metroNIDAZOLE-NS PMX 500 200 mg In Saline 1 100ml.bag @ 100 mls/hr IVPB ONCE ONE Rx#:[id number] Oral 150 420 60 Output: Drainage 0 2 5 Left Lower Abdomen 0 2 5 Urine 1450 2550 Stool 30 300 Emesis 0 Other: Voiding Method Bedside Commode Indwelling Catheter Indwelling Catheter Indwelling Catheter # Bowel Movements 0 ABP, PAP, CO, CI - Last Documented Arterial Blood Pressure 105/49 - Exam GENERAL EXAM: Alert, pleasant 89-year-old female patient, up in a chair at the bedside, fairly comfortable in no apparent distress. On 3 L nasal cannula. HEAD: Normocephalic. EYES: Normal reaction of pupils, equal size. NOSE: Clear with pink turbinates. THROAT: No erythema or exudates. NECK: No masses, no JVD. CHEST: No chest wall deformity. LUNGS: Equal air entry with few scattered rhonchi. CVS: S1 and S2 normal with no audible murmur, regular rhythm. ABDOMEN: Abdominal binder in place, no guarding or rigidity. SPINE: No scoliosis or deformity SKIN: No rashes CENTRAL NERVOUS SYSTEM: No focal deficits, tone is normal in all 4 extremities. EXTREMITIES: There is 1-2+ peripheral edema. No clubbing, no cyanosis. Peripheral pulses are intact. - Labs CBC & Chem 7: 09/17/19 07:05 09/17/19 07:05 Labs: Abnormal Lab Results - Last 24 Hours (Table) 09/16/19 09/16/19 09/16/19 Range/Units 14:04 15:21 16:34 WBC (3.8-10.6) k/uL RBC (3.80-5.40) m/uL Hgb (11.4-16.0) gm/dL Hct (34.0-46.0) % MCHC (31.0-37.0) g/dL RDW (11.5-15.5) % Plt Count (150-450) k/uL BUN (7-17) mg/dL Creatinine (0.52-1.04) mg/dL Glucose (74-99) mg/dL POC Glucose (mg/dL) 201 H 207 H 202 H (75-99) mg/dL Calcium (8.4-10.2) mg/dL 09/16/19 09/16/19 09/16/19 Range/Units 17:05 18:06 19:53 WBC (3.8-10.6) k/uL RBC (3.80-5.40) m/uL Hgb (11.4-16.0) gm/dL Hct (34.0-46.0) % MCHC (31.0-37.0) g/dL RDW (11.5-15.5) % Plt Count (150-450) k/uL BUN (7-17) mg/dL Creatinine (0.52-1.04) mg/dL Glucose (74-99) mg/dL POC Glucose (mg/dL) 225 H 213 H 196 H (75-99) mg/dL Calcium (8.4-10.2) mg/dL 09/16/19 09/17/19 09/17/19 Range/Units 22:20 00:06 02:16 WBC (3.8-10.6) k/uL RBC (3.80-5.40) m/uL Hgb (11.4-16.0) gm/dL Hct (34.0-46.0) % MCHC (31.0-37.0) g/dL RDW (11.5-15.5) % Plt Count (150-450) k/uL BUN (7-17) mg/dL Creatinine (0.52-1.04) mg/dL Glucose (74-99) mg/dL POC Glucose (mg/dL) 215 H 209 H 205 H (75-99) mg/dL Calcium (8.4-10.2) mg/dL 09/17/19 09/17/19 09/17/19 Range/Units 04:22 05:45 07:05 WBC (3.8-10.6) k/uL RBC (3.80-5.40) m/uL Hgb (11.4-16.0) gm/dL Hct (34.0-46.0) % MCHC (31.0-37.0) g/dL RDW (11.5-15.5) % Plt Count (150-450) k/uL BUN 48 H (7-17) mg/dL Creatinine 1.23 H (0.52-1.04) mg/dL Glucose 148 H (74-99) mg/dL POC Glucose (mg/dL) 163 H 161 H (75-99) mg/dL Calcium 8.2 L (8.4-10.2) mg/dL 09/17/19 09/17/19 09/17/19 Range/Units 07:05 08:09 10:09 WBC 13.6 H (3.8-10.6) k/uL RBC 2.82 L (3.80-5.40) m/uL Hgb 8.3 L (11.4-16.0) gm/dL Hct 27.3 L (34.0-46.0) % MCHC 30.3 L (31.0-37.0) g/dL RDW 17.6 H (11.5-15.5) % Plt Count 149 L (150-450) k/uL BUN (7-17) mg/dL Creatinine (0.52-1.04) mg/dL Glucose (74-99) mg/dL POC Glucose (mg/dL) 165 H 200 H (75-99) mg/dL Calcium (8.4-10.2) mg/dL 09/17/19 Range/Units 12:59 WBC (3.8-10.6) k/uL RBC (3.80-5.40) m/uL Hgb (11.4-16.0) gm/dL Hct (34.0-46.0) % MCHC (31.0-37.0) g/dL RDW (11.5-15.5) % Plt Count (150-450) k/uL BUN (7-17) mg/dL Creatinine (0.52-1.04) mg/dL Glucose (74-99) mg/dL POC Glucose (mg/dL) 233 H (75-99) mg/dL Calcium (8.4-10.2) mg/dL Assessment and Plan Assessment: #1 Colonic mass status post exploratory laparotomy with lysis of adhesions, right hemicolectomy, transverse colon resection, hernia repair, small bowel resection, placement of preventive wound VAC. Postoperative day #7. Biopsies positive for poorly differentiated adenocarcinoma. #2 Postoperative respiratory failure with routine postoperative ventilator management successfully extubated on 09/12/2019. Currently on 3 L/m per nasal cannula. #3 History of GI bleed. #4 Chronic iron deficiency anemia. #5 Ischemic cardiomyopathy. #6 Diastolic congestive heart failure. #7 History of atrial fibrillation. #8 History of pulmonary embolism, status post [place] filter placement #9 Sleep apnea syndrome. #10 Diabetes mellitus, type II. #11 Diabetic neuropathy. #12 Hypertension. 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 #14 History of depression. #15 History of gout. #16 Status post permanent pacemaker implantation. #17 Hypothyroidism. Plan: The patient was seen and evaluated by Dr. Lugo. She is improved today compared to yesterday. She is again encouraged regarding the increased use of the incentive spirometer and cough and deep breathing exercises. We will titrate down the FiO2 as tolerated. Increase her activity as tolerated. Continue the current treatment plan. We'll continue to follow and make further recommendations based on her clinical status. I, the cosigning physician, performed a history & physical examination of the patient. Lungs sounds few scattered rhonchi. Maintaining good O2 saturations in the 90s on 3 L/m per nasal cannula. I discussed the assessment and plan of care with my nurse practitioner, Mary Kunz. I attest to the above note as dictated by her.
[2019-09-17 14:00] LABS: Glucose,Whole Blood 131 mg/dL (75-99)
[2019-09-17] MEDS: FAT EMULSION 20% 250 ML IV SCH (15:36)
[2019-09-17] MEDS: HYDROmorphone 0.5 MG/0.5 ML SYRINGE IVP PRN ×2 (15:39→21:39)
[2019-09-17 16:37] LABS: Glucose,Whole Blood 118 mg/dL (75-99)
[2019-09-17] MEDS: INSULIN ASPART (NovoLOG) 100 UNIT/ML VIAL SQ SCH ×2 (17:29→20:47)
[2019-09-17 20:59] LABS: Glucose,Whole Blood 228 mg/dL (75-99)
--- NOTE | 2019-09-17 21:12 | P.PN ---
Progress Note - Text Progress Note Date: 09/17/19 Chief Complaint: Lower GI bleed Interval history: This is a very pleasant 89-year-old patient who follows with visiting physicians Dr. Amor. Chronic stable medical conditions include congestive heart failure with EF of 50%, aortic stenosis, mitral regurgitation, mitral stenosis, tricuspid regurgitation, secondary probably hypertension, diabetes, hypertension, osteoarthritis, hypothyroid, blind left eye, coronary artery disease, [place] filter.. Patient does use a walker. Patient did have a computed tomography scan of the abdomen on August 30 and did show mass along the lateral wall of the ascending colon and also adjacent soft tissue omental mass and is also another additional mass present in intra-abdominally. Suggestive of metastatic disease. Patient yesterday had some bleeding per the right rectum. And decided to come in. Patient's been having lower abdominal discomfort. She was admitted to the ER. Patient normally does use a walker. Lives alone. Colonoscopy done on September 07 shows ascending colon mass and AV malformation was some slight bleeding. On September 10 patient underwent surgical intervention to include right hemicolectomy, resection of transverse mesocolon tomor, small bowel resection from distal jejunum to ileum over 2 feet, repair of incisional hernia, lysis of adhesions. Patient was extubated on September 12. On TPN. Abdominal incision wound VAC. Today-. tired. Had a good bowel movement. Oral intake limited. shortness of breath with activity. Review of systems: Was done for constitutional, cardiovascular, GI, pulmonary. relevant finding as above Active Medications Acetaminophen (Tylenol Tab) 650 mg PO Q4HR PRN PRN Reason: Fever and/ or Pain Hydrocodone Bitart/Acetaminophen ([place] 5-325) 1 each PO Q4HR PRN PRN Reason: Pain Last Admin: 09/14/19 10:53 Dose: 1 each Documented by: Albuterol/Ipratropium (Duoneb 0.5 Mg-3 Mg/3 Ml Soln) 3 ml INHALATION RT-QID [facility] Last Admin: 09/17/19 20:16 Dose: 3 ml Documented by: Albuterol/Ipratropium (Duoneb 0.5 Mg-3 Mg/3 Ml Soln) 3 ml INHALATION RT-Q2H PRN PRN Reason: Shortness Of Breath Or Wheezing Furosemide (Lasix) 40 mg IV Q8HR [facility] Last Admin: 09/17/19 16:39 Dose: 40 mg Documented by: Heparin Sodium (Porcine) (Heparin) 5,000 unit SQ Q12HR [facility] Last Admin: 09/17/19 20:47 Dose: 5,000 unit Documented by: Hydromorphone HCl (Dilaudid) 0.5 mg IVP Q3HR PRN PRN Reason: Pain Last Admin: 09/17/19 15:39 Dose: 0.5 mg Documented by: Metronidazole 500 mg/ IV (Solution) 100 mls @ 100 mls/hr IVPB Q8HR [facility] Last Admin: 09/17/19 16:38 Dose: 100 mls/hr Documented by: Fat Emulsion Intravenous (Lipids 20%) 250 mls @ 21 mls/hr IV Q24H [facility] Last Admin: 09/17/19 15:36 Dose: 21 mls/hr Documented by: Parenteral Vitamin Supplement 10 ml/ Chromium/Copper/Manganese/Seleni/Zn 1 ml/Amino Ac/Electrol/Dextrose/Calcium 1,011 mls @ 80 mls/hr IV .BY DURATION [facility] Last Admin: 09/17/19 17:28 Dose: 80 mls/hr Documented by: Amino Ac/Electrol/Dextrose/Calcium (Clinimix E 4.25%-D10% Solution) 1,000 mls @ 80 mls/hr IV .BY DURATION [facility] Last Admin: 09/17/19 17:29 Dose: 80 mls/hr Documented by: Piperacillin Sod/Tazobactam (Sod 3.375 gm/ Sodium Chloride) 100 mls @ 25 mls/hr IVPB Q8HR [facility] Last Admin: 09/17/19 17:24 Dose: 25 mls/hr Documented by: Insulin Aspart (Novolog) 0 unit SQ ACHS [facility]; Protocol Last Admin: 09/17/19 20:47 Dose: 5 unit Documented by: Levothyroxine Sodium (Synthroid Ivp) 56.25 mcg IV DAILY [facility] Last Admin: 09/17/19 08:29 Dose: 56.25 mcg Documented by: Metoclopramide HCl (Reglan) 10 mg IVP Q6HR PRN PRN Reason: Nausea And Vomiting Last Admin: 09/16/19 14:05 Dose: 10 mg Documented by: Miscellaneous Information (Magnesium Per Protocol) 1 each MISCELLANE DAILY PRN; Protocol PRN Reason: Per Protocol Miscellaneous Information (Potassium Per Protocol) 1 each MISCELLANE DAILY PRN; Protocol PRN Reason: Per Protocol Nalbuphine HCl (Nubain) 2.5 mg IV Q4HR PRN PRN Reason: Itching Naloxone HCl (Narcan) 0.2 mg IV Q2M PRN PRN Reason: Opioid Reversal Ondansetron HCl (Zofran) 4 mg IVP Q6HR PRN PRN Reason: Nausea And Vomiting Last Admin: 09/17/19 05:50 Dose: 4 mg Documented by: Pantoprazole Sodium (Protonix) 40 mg IV DAILY [facility] Last Admin: 09/17/19 08:29 Dose: 40 mg Documented by: Scopolamine (Transderm-Scop 1.5mg/72hr Patch) 1 patch TRANSDERM Q72H [facility] Last Admin: 09/15/19 12:15 Dose: 1 patch Documented by: Sodium Bicarbonate () 10 ml PO AC-TID [facility] Last Admin: 09/17/19 18:09 Dose: Not Given Documented by: Tramadol HCl (Ultram) 50 mg PO TID PRN PRN Reason: Mild Pain Last Admin: 09/16/19 14:05 Dose: 50 mg Documented by: Physical examination: VITAL SIGNS: 97.1, 116, 17, 139/60, 92% on 3 L GENERAL: propped up in bed, tired EYES: Pupils equal. Conjunctiva pale HEENT: External appearance of nose and ears normal, oral cavity grossly normal. NECK: JVD not raised; masses not palpable. HEART: First and second heart sounds are normal; no edema. LUNGS: Respiratory rate normal; decreased breath sounds. ABDOMEN: Some tenderness, dressing over the wound, bowel sounds sluggish, mild tenderness no guarding or rigidity. DEEDEE drain.- Minimal output PSYCH: Alert and oriented x3; mood and affect normal. MUSCULOSKELETAL: Evidence of OA especially in the hands and knees INVESTIGATIONS, reviewed in the clinical context: white count 13.6 hemoglobin 8.3 bun 48 crit 1.23 Previous testing White count 9.6 hemoglobin 9.2 platelets 240 progression 4.7 BUN 73 creatinine 1.79 Computed tomography scan of the abdomen-results noted as above Assessment: -Ascending colon mass, per colonoscopy, -right hemicolectomy, resection of trans verse mesocolon tumor, small bowel resection from distal jejunum to ileum over 2feet, repair of incisional hernia, lysis of adhesions.-Invasive poorly differentiated adenocarcinoma -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 Continue current medication treatment plan. Antibiotics per ID. Hopefully ECF on Thursday.
[2019-09-18] MEDS: FUROSEMIDE 10 MG/ML 4 ML VIAL IV SCH ×4 (00:27→23:11)
[2019-09-18] MEDS: PIPERACILLIN-TAZOBACTAM 3.375 GM in SODIUM CHLORIDE 0.9% 100 ML IVPB SCH ×4 (00:27→23:12)
[2019-09-18] MEDS: metroNIDAZOLE-NS PMX 500 MG in SALINE 1 100ML.BAG IVPB SCH ×3 (00:27→23:11)
[2019-09-18] MEDS: 1: MVI, ADULT NO.4 WITH VIT K 10 ML, TRACE (CONC-1ML/DOSE) 1 ML in AMINO ACID 4.25%-D10W IV SCH ×9 (04:52→21:58)
[2019-09-18] MEDS: HYDROcodone/APAP 5-325MG 1 EACH TAB PO PRN (04:55)
[2019-09-18 07:10] LABS: Calcium 8.4 mg/dL (8.4-10.2); Magnesium 2.3 mg/dL (1.6-2.3); Phosphorus 4.1 mg/dL (2.5-4.5); Potassium 3.8 mmol/L (3.5-5.1)
[2019-09-18 07:33] LABS: Glucose,Whole Blood 211 mg/dL (75-99)
[2019-09-18] MEDS: IPRATROPIUM-ALBUTEROL 3 ML NEB INHALATION SCH ×4 (07:46→19:05)
[2019-09-18] MEDS: SCOPOLAMINE 1.5MG/72HR PATCH TRANSDERM SCH (08:31)
[2019-09-18] MEDS: SALT AND SODA MOUTHWASH 1,000 ML PO SCH ×3 (08:31→17:29)
[2019-09-18] MEDS: LEVOTHYROXINE IVP 100 MCG/5 ML VIAL IV SCH (08:31)
[2019-09-18] MEDS: traMADol 50 MG TAB PO PRN (09:13)
[2019-09-18] MEDS: HEPARIN SODIUM,PORCINE 5,000 UNIT/ML 1 ML VIAL SQ SCH ×2 (09:14→20:49)
[2019-09-18] MEDS: PANTOPRAZOLE 40 MG/10 ML VIAL IV SCH (09:14)
[2019-09-18] MEDS: METOCLOPRAMIDE 5 MG/ML 2 ML VIAL IVP PRN ×2 (09:14→16:33)
[2019-09-18] MEDS: INSULIN ASPART (NovoLOG) 100 UNIT/ML VIAL SQ SCH ×4 (09:14→20:49)
--- NOTE | 2019-09-18 10:42 | P.PN ---
Subjective Progress Note Date: 09/18/19 Principal diagnosis: Rectal bleeding secondary to invading colon mass. Status post exploratory laparotomy with lysis of adhesions, extensive right hemicolectomy, resection transverse colon, small bowel resection, repair of incisional hernia, placement of incisional wound Prevena system. The patient is seen today 09/16/2019 in follow-up on the regular medical floor. She is currently resting in bed. Awake and alert in no acute distress. Her pain is currently fairly well controlled. She is still quite weak. No worsening shortness of breath, cough or congestion. She is maintaining O2 saturations in the low 90s on 3 L/m per nasal cannula. Afebrile. Urine culture reveals no growth. Sputum culture reveals no growth. Peritoneal fluid revealing no growth. White count 12.7. Hemoglobin 8.2. Platelet count 137,000. Sodium 137. Potassium 4.0. Creatinine 1.37. She is continued on TPN and lipids. She remains on bronchodilators, IV diuretics, antibiotics in the form of Zosyn along with Flagyl. Currently in a negative balance. She does have continued anasarca. The patient is seen today 09/17/2019 in follow-up on the regular medical floor. She is doing a bit better today. Currently sitting up in a chair at the bedside. More awake and alert. Maintaining O2 saturations in the low 90s on 3 L/m per nasal cannula. She's afebrile. Hemodynamically stable. Sputum culture reveals no growth. Urine culture reveals no growth. Peritoneal fluid reveals no growth. White count 13.6. Hemoglobin 8.3. Creatinine 1.23. The patient is seen today 09/18/2019 in follow-up on the regular medical floor. She is currently sitting up at the bedside. Awake and alert in no acute distress. Currently maintaining O2 saturations in the mid 90s on 3 L/m per nasal cannula. She's been afebrile. Urine, sputum and peritoneal fluid cultures all reveal no growth. Sodium 138. Potassium 3.8. BUN 54. Creatinine 1.41. Receiving TPN and lipids for nutritional support. Remains on IV diuretics. Continued on bronchodilators and IV Zosyn. Objective - Vital Signs Vital signs: Vital Signs Temp 98.6 F 09/18/19 05:00 Pulse 92 09/18/19 07:55 Resp 16 09/18/19 05:00 BP 132/74 09/18/19 05:00 Pulse Ox 96 09/18/19 05:00 Intake & Output 09/17/19 09/18/19 09/18/19 18:59 06:59 18:59 Intake Total 2290.117 912 Output Total 2410 962 Balance -119.883 -50 Intake: IV 100 metroNIDAZOLE-NS PMX 500 100 mg In Saline 1 100ml.bag @ 100 mls/hr IVPB Q8HR [facility] Rx#:[id number] Intake, IV Titration 2070.117 912 Amount Amino Acid 4.25%-D10w+ 1000 Lytes*E* 1,000 ml @ 80 mls/hr IV .BY DURATION [facility] Rx#:[id number] Insulin Regular 100 unit 39.450 In Sodium Chloride 0.9% 100 ml @ Titrate IV .Q0M [facility] Rx#:[id number] Mvi, Adult No.4 with Vit 930.667 912 K 10 ml Trace (Conc-1Ml/ Dose) 1 ml In Amino Acid 4.25%-D10w+Lytes*E* 1,000 ml @ 80 mls/hr IV .BY DURATION [facility] Rx#: [id number] Piperacillin-Tazobactam 3 100 .375 gm In Sodium Chloride 0.9% 100 ml @ 25 mls/hr IVPB Q8HR [facility] Rx# :[id number] Oral 120 Output: Drainage 10 12 Left Lower Abdomen 10 12 Urine 1500 950 Stool 900 Other: Voiding Method Indwelling Catheter Indwelling Catheter # Voids 1 # Bowel Movements 1 1 ABP, PAP, CO, CI - Last Documented Arterial Blood Pressure 105/49 - Exam GENERAL EXAM: Alert, pleasant 89-year-old female patient, up in a chair at the bedside, fairly comfortable in no apparent distress. On 3 L nasal cannula. HEAD: Normocephalic. EYES: Normal reaction of pupils, equal size. NOSE: Clear with pink turbinates. THROAT: No erythema or exudates. NECK: No masses, no JVD. CHEST: No chest wall deformity. LUNGS: Equal air entry with few scattered rhonchi. CVS: S1 and S2 normal with no audible murmur, regular rhythm. ABDOMEN: Abdominal binder in place, no guarding or rigidity. SPINE: No scoliosis or deformity SKIN: No rashes CENTRAL NERVOUS SYSTEM: No focal deficits, tone is normal in all 4 extremities. EXTREMITIES: There is 1-2+ peripheral edema. No clubbing, no cyanosis. Peripheral pulses are intact. - Labs CBC & Chem 7: 09/17/19 07:05 09/18/19 05:45 Labs: Abnormal Lab Results - Last 24 Hours (Table) 09/17/19 09/17/19 09/17/19 Range/Units 12:59 13:58 16:27 BUN (7-17) mg/dL Creatinine (0.52-1.04) mg/dL Glucose (74-99) mg/dL POC Glucose (mg/dL) 233 H 131 H 118 H (75-99) mg/dL 09/17/19 09/18/19 09/18/19 Range/Units 20:35 05:45 07:31 BUN 54 H (7-17) mg/dL Creatinine 1.41 H (0.52-1.04) mg/dL Glucose 200 H (74-99) mg/dL POC Glucose (mg/dL) 228 H 211 H (75-99) mg/dL Assessment and Plan Assessment: #1 Colonic mass status post exploratory laparotomy with lysis of adhesions, right hemicolectomy, transverse colon resection, hernia repair, small bowel resection, placement of preventive wound VAC. Postoperative day #8. Biopsies positive for poorly differentiated adenocarcinoma. #2 Postoperative respiratory failure with routine postoperative ventilator management successfully extubated on 09/12/2019. Currently on 3 L/m per nasal cannula. #3 History of GI bleed. #4 Chronic iron deficiency anemia. #5 Ischemic cardiomyopathy. #6 Diastolic congestive heart failure. #7 History of atrial fibrillation. #8 History of pulmonary embolism, status post [place] filter placement #9 Sleep apnea syndrome. #10 Diabetes mellitus, type II. #11 Diabetic neuropathy. #12 Hypertension. 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 #14 History of depression. #15 History of gout. #16 Status post permanent pacemaker implantation. #17 Hypothyroidism. Plan: The patient was seen and evaluated by Dr. Lugo. She is again encouraged regarding the increased use of the incentive spirometer and cough and deep breathing exercises. We will titrate down the FiO2 as tolerated. Increase her activity as tolerated. Continue the current treatment plan. We'll continue to follow and make further recommendations based on her clinical status. I, the cosigning physician, performed a history & physical examination of the patient. Lungs sounds few scattered rhonchi. Maintaining good O2 saturations in the 90s on 3 L/m per nasal cannula. I discussed the assessment and plan of care with my nurse practitioner, Mary Kunz. I attest to the above note as dictated by her.
[2019-09-18 10:59] LABS: Glucose,Whole Blood 234 mg/dL (75-99)
--- NOTE | 2019-09-18 12:41 | P.PN ---
Subjective Progress Note Date: 09/18/19 Principal diagnosis: Bowel obstruction patient is doing well today. More alert. Tolerating some of her diet. She is having bowel activity with flatus and bowel movements. Slight confusion today per family. Objective - Vital Signs Vital signs: Vital Signs Temp 97.4 F L 09/18/19 12:38 Pulse 98 09/18/19 12:38 Resp 16 09/18/19 12:38 BP 121/68 09/18/19 12:38 Pulse Ox 96 09/18/19 12:38 Intake & Output 09/17/19 09/18/19 09/18/19 18:59 06:59 18:59 Intake Total 2290.117 912 Output Total 2410 962 4 Balance -119.883 -50 -4 Intake: IV 100 metroNIDAZOLE-NS PMX 500 100 mg In Saline 1 100ml.bag @ 100 mls/hr IVPB Q8HR [facility] Rx#:[id number] Intake, IV Titration 2070.117 912 Amount Amino Acid 4.25%-D10w+ 1000 Lytes*E* 1,000 ml @ 80 mls/hr IV .BY DURATION [facility] Rx#:[id number] Insulin Regular 100 unit 39.450 In Sodium Chloride 0.9% 100 ml @ Titrate IV .Q0M [facility] Rx#:[id number] Mvi, Adult No.4 with Vit 930.667 912 K 10 ml Trace (Conc-1Ml/ Dose) 1 ml In Amino Acid 4.25%-D10w+Lytes*E* 1,000 ml @ 80 mls/hr IV .BY DURATION [facility] Rx#: [id number] Piperacillin-Tazobactam 3 100 .375 gm In Sodium Chloride 0.9% 100 ml @ 25 mls/hr IVPB Q8HR [facility] Rx# :[id number] Oral 120 Output: Drainage 10 12 4 Left Lower Abdomen 10 12 4 Urine 1500 950 Stool 900 Other: Voiding Method Indwelling Catheter Indwelling Catheter Indwelling Catheter # Voids 1 # Bowel Movements 1 1 ABP, PAP, CO, CI - Last Documented Arterial Blood Pressure 105/49 - Exam abdomen: Soft, nondistended, incision clean and dry, nontender - Labs CBC & Chem 7: 09/17/19 07:05 09/18/19 05:45 Labs: Abnormal Lab Results - Last 24 Hours (Table) 09/17/19 09/17/19 09/17/19 Range/Units 12:59 13:58 16:27 BUN (7-17) mg/dL Creatinine (0.52-1.04) mg/dL Glucose (74-99) mg/dL POC Glucose (mg/dL) 233 H 131 H 118 H (75-99) mg/dL 09/17/19 09/18/19 09/18/19 Range/Units 20:35 05:45 07:31 BUN 54 H (7-17) mg/dL Creatinine 1.41 H (0.52-1.04) mg/dL Glucose 200 H (74-99) mg/dL POC Glucose (mg/dL) 228 H 211 H (75-99) mg/dL 09/18/19 Range/Units 10:58 BUN (7-17) mg/dL Creatinine (0.52-1.04) mg/dL Glucose (74-99) mg/dL POC Glucose (mg/dL) 234 H (75-99) mg/dL Assessment and Plan (1) Abdominal mass Narrative/Plan: patient doing better today. Continue diet as tolerated. Continue physical therapy. Ambulate. Possible transfer tomorrow. Wean off TPN if oral intake improved. Current Visit: Yes Status: Acute Priority: High Code(s): R19.00 - INTRA- ABD AND PELVIC SWELLING, MASS AND LUMP, UNSP SITE SNOMED Code(s): 818794186
[2019-09-18] MEDS: FAT EMULSION 20% 250 ML IV SCH (13:12)
[2019-09-18] MEDS: metroNIDAZOLE 500 MG TAB PO SCH ×2 (16:42→23:14)
[2019-09-18 16:49] LABS: Glucose,Whole Blood 164 mg/dL (75-99)
--- NOTE | 2019-09-18 19:35 | PN ---
PROGRESS NOTE The patient is seen for followup for acute kidney injury. The patient is currently being diuresed as she is maintained on TPN and has a history of CHF with evidence of volume overload. She has not been eating much and is therefore maintained on TPN. Ejection fraction was 50-55 percent in May of 2019. Patient is status post explorative laparotomy, right hemicolectomy for colon mass and small-bowel resection and repair of incisional hernia on 09/10/2019. On examination today, blood pressure was 121/68, heart rate 98 per minute, patient is afebrile. Examination of the heart S1, S2. Examination of the lungs, bilateral breath sounds are heard. Decreased breath sounds at bases. Abdomen is soft. Some tenderness is noted, generalized. No rebound tenderness noted. Exam of lower extremities shows edema 1+ bilaterally. LABS SHOW: Sodium 138, potassium 3.8, BUN 54, creatinine 1.4. ASSESSMENT: 1. Acute kidney injury associated with hypotension, hypoperfusion and cardiorenal. Serum creatinine slightly higher than yesterday. Continue to monitor renal function for now. The patient is not in significant negative balance due to TPN. She is maintained on IV Lasix which I will continue. There are no other nephrotoxic agents on board. 2. Status post right hemicolectomy for colonic mass with small-bowel resection and repair of incisional hernia, currently maintained on TPN. 3. Gastroesophageal reflux disease. 4. Volume overload. 5. Diastolic heart failure, currently being diuresed. 6. History of atrial fibrillation with controlled ventricular response. PLAN: Continue current dose of IV Lasix. Repeat labs in a.m. MMODL / IJN: [id number] /
--- NOTE | 2019-09-18 20:19 | P.PN ---
Progress Note - Text Progress Note Date: 09/18/19 Chief Complaint: Lower GI bleed Interval history: This is a very pleasant 89-year-old patient who follows with visiting physicians Dr. Amor. Chronic stable medical conditions include congestive heart failure with EF of 50%, aortic stenosis, mitral regurgitation, mitral stenosis, tricuspid regurgitation, secondary probably hypertension, diabetes, hypertension, osteoarthritis, hypothyroid, blind left eye, coronary artery disease, [place] filter.. Patient does use a walker. Patient did have a computed tomography scan of the abdomen on August 30 and did show mass along the lateral wall of the ascending colon and also adjacent soft tissue omental mass and is also another additional mass present in intra-abdominally. Suggestive of metastatic disease. Patient yesterday had some bleeding per the right rectum. And decided to come in. Patient's been having lower abdominal discomfort. She was admitted to the ER. Patient normally does use a walker. Lives alone. Colonoscopy done on September 07 shows ascending colon mass and AV malformation was some slight bleeding. On September 10 patient underwent surgical intervention to include right hemicolectomy, resection of transverse mesocolon tomor, small bowel resection from distal jejunum to ileum over 2 feet, repair of incisional hernia, lysis of adhesions. Patient was extubated on September 12. On TPN. Abdominal incision wound VAC. Today-. Remains tired. With minimal activity. Decreased oral intake. Patient's son and daughter the bedside.. Review of systems: Was done for constitutional, cardiovascular, GI, pulmonary. relevant finding as above Active Medications Acetaminophen (Tylenol Tab) 650 mg PO Q4HR PRN PRN Reason: Fever and/ or Pain Hydrocodone Bitart/Acetaminophen ([place] 5-325) 1 each PO Q4HR PRN PRN Reason: Pain Last Admin: 09/18/19 04:55 Dose: 1 each Documented by: Albuterol/Ipratropium (Duoneb 0.5 Mg-3 Mg/3 Ml Soln) 3 ml INHALATION RT-QID [facility] Last Admin: 09/18/19 19:05 Dose: 3 ml Documented by: Albuterol/Ipratropium (Duoneb 0.5 Mg-3 Mg/3 Ml Soln) 3 ml INHALATION RT-Q2H PRN PRN Reason: Shortness Of Breath Or Wheezing Furosemide (Lasix) 40 mg IV Q8HR [facility] Last Admin: 09/18/19 16:34 Dose: 40 mg Documented by: Heparin Sodium (Porcine) (Heparin) 5,000 unit SQ Q12HR [facility] Last Admin: 09/18/19 09:14 Dose: 5,000 unit Documented by: Hydromorphone HCl (Dilaudid) 0.5 mg IVP Q3HR PRN PRN Reason: Pain Last Admin: 09/17/19 21:39 Dose: 0.5 mg Documented by: Fat Emulsion Intravenous (Lipids 20%) 250 mls @ 21 mls/hr IV Q24H [facility] Last Admin: 09/18/19 13:12 Dose: 21 mls/hr Documented by: Parenteral Vitamin Supplement 10 ml/ Chromium/Copper/Manganese/Seleni/Zn 1 ml/Amino Ac/Electrol/Dextrose/Calcium 1,011 mls @ 80 mls/hr IV .BY DURATION [facility] Last Admin: 09/18/19 04:52 Dose: 80 mls/hr Documented by: Amino Ac/Electrol/Dextrose/Calcium (Clinimix E 4.25%-D10% Solution) 1,000 mls @ 80 mls/hr IV .BY DURATION [facility] Last Admin: 09/17/19 17:29 Dose: 80 mls/hr Documented by: Piperacillin Sod/Tazobactam (Sod 3.375 gm/ Sodium Chloride) 100 mls @ 25 mls/hr IVPB Q8HR [facility] Last Admin: 09/18/19 16:33 Dose: 25 mls/hr Documented by: Insulin Aspart (Novolog) 0 unit SQ ACHS [facility]; Protocol Last Admin: 09/18/19 18:30 Dose: 1 unit Documented by: Levothyroxine Sodium (Synthroid) 75 mcg PO DAILY@0630 [facility] Metoclopramide HCl (Reglan) 10 mg IVP Q6HR PRN PRN Reason: Nausea And Vomiting Last Admin: 09/18/19 16:33 Dose: 10 mg Documented by: Metronidazole (Flagyl) 500 mg PO Q8HR [facility] Last Admin: 09/18/19 16:42 Dose: 500 mg Documented by: Miscellaneous Information (Magnesium Per Protocol) 1 each MISCELLANE DAILY PRN; Protocol PRN Reason: Per Protocol Miscellaneous Information (Potassium Per Protocol) 1 each MISCELLANE DAILY PRN; Protocol PRN Reason: Per Protocol Nalbuphine HCl (Nubain) 2.5 mg IV Q4HR PRN PRN Reason: Itching Naloxone HCl (Narcan) 0.2 mg IV Q2M PRN PRN Reason: Opioid Reversal Ondansetron HCl (Zofran) 4 mg IVP Q6HR PRN PRN Reason: Nausea And Vomiting Last Admin: 09/17/19 05:50 Dose: 4 mg Documented by: Pantoprazole Sodium (Protonix) 40 mg PO AC-BRKFST [facility] Scopolamine (Transderm-Scop 1.5mg/72hr Patch) 1 patch TRANSDERM Q72H [facility] Last Admin: 09/18/19 08:31 Dose: 1 patch Documented by: Sodium Bicarbonate () 10 ml PO AC-TID [facility] Last Admin: 09/18/19 17:29 Dose: Not Given Documented by: Tramadol HCl (Ultram) 50 mg PO TID PRN PRN Reason: Mild Pain Last Admin: 09/18/19 09:13 Dose: 50 mg Documented by: Physical examination: VITAL SIGNS: 97.4, 98, 16, 121/68, 96% room air GENERAL: reclined in bed, tired EYES: Pupils equal. Conjunctiva pale HEENT: External appearance of nose and ears normal, oral cavity grossly normal. NECK: JVD not raised; masses not palpable. HEART: First and second heart sounds are normal; no edema. LUNGS: Respiratory rate normal; decreased breath sounds. ABDOMEN: Some tenderness, dressing over the wound, bowel sounds sluggish, mild tenderness no guarding or rigidity. DEEDEE drain.- Minimal output PSYCH: Alert and oriented x3; mood and affect normal. 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 And the patient. Patient somewhat disinclined to proceed with further treatment with the cancer. Her decided a discussion oncologist. Earlier patient to the ECF tomorrow. DC TPN lipids.
[2019-09-18 20:20] LABS: Glucose,Whole Blood 228 mg/dL (75-99)
--- NOTE | 2019-09-19 00:15 | PN ---
PROGRESS NOTE DATE OF SERVICE: 09/18/2019. REASON FOR FOLLOWUP: Leukocytosis abdominal source. INTERVAL HISTORY: The patient is currently afebrile. Patient has been feeling better. Breathing comfortably. The patient denies having any chest pain. Occasional cough. Abdominal pain has improved. No nausea or vomiting and no diarrhea. PHYSICAL EXAMINATION: Blood pressure 146/67 with a pulse of 110, temperature 98.4. She is 93% on 2 L nasal cannula. General description is an elderly female up in the chair in no distress. Respiratory system: Unlabored breathing, clear to auscultation anteriorly. Heart S1, S2. Regular rate and rhythm. Abdomen soft. Extremities: No edema of the feet. LABS: BUN of 54, creatinine 1.41. DIAGNOSTIC IMPRESSION AND PLAN: Patient with leukocytosis. The patient did have extensive abdominal surgery, possible abdominal source. The patient's white count initially improved, slightly upward trend. Recommend discontinuation of the IG once the TPN is weened off to decrease risk of line related sepsis on Zosyn. Maybe start a short course of oral antibiotic on discharge. Continue supportive care. MMODL / IJN: [id number] /
[2019-09-19] MEDS ORDERED: LEVOTHYROXINE 75 MCG TAB PO SCH (06:30)
[2019-09-19 07:01] LABS: Calcium 8.5 mg/dL (8.4-10.2); Magnesium 2.3 mg/dL (1.6-2.3); Phosphorus 4.3 mg/dL (2.5-4.5); Potassium 4.1 mmol/L (3.5-5.1)
[2019-09-19 07:08] LABS: Glucose,Whole Blood 190 mg/dL (75-99)
[2019-09-19] MEDS ORDERED: PANTOPRAZOLE 40 MG TABLET PO SCH (07:30)
[2019-09-19] MEDS: HEPARIN SODIUM,PORCINE 5,000 UNIT/ML 1 ML VIAL SQ SCH (07:53)
[2019-09-19] MEDS: METOCLOPRAMIDE 5 MG/ML 2 ML VIAL IVP PRN (07:53)
[2019-09-19] MEDS: PIPERACILLIN-TAZOBACTAM 3.375 GM in SODIUM CHLORIDE 0.9% 100 ML IVPB SCH (07:53)
[2019-09-19] MEDS: SALT AND SODA MOUTHWASH 1,000 ML PO SCH ×2 (07:54→12:37)
[2019-09-19] MEDS: INSULIN ASPART (NovoLOG) 100 UNIT/ML VIAL SQ SCH ×2 (07:54→12:36)
[2019-09-19] MEDS: FUROSEMIDE 10 MG/ML 4 ML VIAL IV SCH (07:54)
[2019-09-19] MEDS: metroNIDAZOLE 500 MG TAB PO SCH (07:54)
[2019-09-19] MEDS: traMADol 50 MG TAB PO PRN (07:55)
[2019-09-19] MEDS: IPRATROPIUM-ALBUTEROL 3 ML NEB INHALATION SCH ×2 (09:14→13:17)
--- NOTE | 2019-09-19 09:57 | P.PN ---
Subjective Patient is seen in follow-up for acute kidney injury. Renal function is fairly stable. She is maintained on IV Lasix as well as TPN. She had breakfast this morning. No vomiting or diarrhea. Vital signs are stable. General: The patient appeared well nourished and normally developed. HEENT: Head exam is unremarkable. Neck is without jugular venous distension. LUNGS: Lungs are clear to auscultation and percussion. Breath sounds decreased. HEART: Rate and Rhythm are regular. First and second heart sounds normal. No murmurs, rubs or gallops. ABDOMEN: Bowel sounds present. Mild tenderness. EXTREMITITES: 1+ edema. Objective - Vital Signs Vital signs: Vital Signs Temp 98.0 F 09/19/19 05:00 Pulse 108 H 09/19/19 09:30 Resp 20 09/19/19 05:00 BP 130/78 09/19/19 05:00 Pulse Ox 95 09/19/19 09:17 Intake & Output 09/18/19 09/19/19 09/19/19 18:59 06:59 18:59 Intake Total 1261 860 Output Total 956 1252 Balance 305 -392 Intake: IV 150 Fat Emulsion 20% 250 ml @ 150 21 mls/hr IV Q24H [facility] Rx #:[id number] Intake, IV Titration 1111 200 Amount Mvi, Adult No.4 with Vit 1011 K 10 ml Trace (Conc-1Ml/ Dose) 1 ml In Amino Acid 4.25%-D10w+Lytes*E* 1,000 ml @ 80 mls/hr IV .BY DURATION [facility] Rx#: [id number] Piperacillin-Tazobactam 3 100 200 .375 gm In Sodium Chloride 0.9% 100 ml @ 25 mls/hr IVPB Q8HR [facility] Rx# :[id number] Oral 60 TPN/PPN 600 metroNIDAZOLE-NS PMX 500 300 mg In Saline 1 100ml.bag @ 100 mls/hr IVPB Q8HR [facility] Rx#:[id number] pressure bag 300 Output: Drainage 6 2 Left Lower Abdomen 6 2 Urine 650 650 Stool 300 600 Other: Voiding Method Indwelling Catheter Indwelling Catheter # Voids 1 1 # Bowel Movements 1 1 ABP, PAP, CO, CI - Last Documented Arterial Blood Pressure 105/49 - Labs CBC & Chem 7: 09/17/19 07:05 09/19/19 06:10 Labs: Abnormal Lab Results - Last 24 Hours (Table) 09/18/19 09/18/19 09/18/19 Range/Units 10:58 16:48 20:18 BUN (7-17) mg/dL Creatinine (0.52-1.04) mg/dL Glucose (74-99) mg/dL POC Glucose (mg/dL) 234 H 164 H 228 H (75-99) mg/dL 09/19/19 09/19/19 Range/Units 06:10 07:06 BUN 56 H (7-17) mg/dL Creatinine 1.49 H (0.52-1.04) mg/dL Glucose 183 H (74-99) mg/dL POC Glucose (mg/dL) 190 H (75-99) mg/dL Assessment and Plan Plan: Assessment: 1. Acute kidney injury secondary to ATN secondary to cardiorenal syndrome. Renal function stable. Creatinine 1.49 today. 2. Volume overload. Improving with diuresis. 3. Colon mass status post exploratory laparotomy and right hemicolectomy on September 10. 4. Acute on chronic diastolic CHF with moderate to severe tricuspid regurgitation, severe mitral regurgitation and severe pulmonary hypertension. 5. Chronic kidney disease stage III with baseline creatinine in the range of 1.2-1.4. Etiology is diabetic kidney disease. 6. Insulin-dependent diabetes mellitus. 7. Anemia of chronic kidney disease. Rule out iron deficiency. 8. Metabolic acidosis secondary to acute kidney injury maintained on bicarb. Plan: Maintain IV Lasix 40 mg 3 times daily. Potential discontinuation of TPN today. Patient tolerated breakfast well. Check iron studies. Avoid nephrotoxins. Continue to monitor renal function and urine output.
[2019-09-19 11:12] LABS: Glucose,Whole Blood 208 mg/dL (75-99)
[2019-09-19 11:33] VITALS: BP 122/55; RESP 22; TEMP 98.3
--- NOTE | 2019-09-19 12:48 | P.DS ---
Providers Date of admission: 09/05/19 15:52 Expected date of discharge: 09/19/19 Attending physician: Rob Sam Consults: 09/05/19 15:51 Consult Physician Urgent Consulting Provider: Bowen Serrano Consult Reason/Comments: Colon cancer Do you want consulting provider notified?: Yes Consult Physician Urgent Consulting Provider: Jennifer Joseph Consult Reason/Comments: GI bleed Do you want consulting provider notified?: Yes 09/05/19 22:29 Consult Physician Routine Consulting Provider: Adair العراقي Consult Reason/Comments: Abdominal malignancy Do you want consulting provider notified?: Yes Consult Physician Routine Consulting Provider: Kassie Parkinson Consult Reason/Comments: Intra-abdominal malignancy Do you want consulting provider notified?: Yes 09/05/19 22:30 Consult Physician Routine Consulting Provider: Jennifer Joseph Consult Reason/Comments: Possible colonic mass Do you want consulting provider notified?: Yes 09/10/19 18:15 Consult Physician Stat Consulting Provider: Derick Pretty Consult Reason/Comments: ICU management Do you want consulting provider notified?: Yes 09/11/19 09:11 Consult Physician Routine Consulting Provider: Christine العلي Consult Reason/Comments: acute kidne injury Do you want consulting provider notified?: Yes 09/11/19 16:56 Consult Physician Routine Consulting Provider: Matthew Duran Consult Reason/Comments: Antibiotic management Do you want consulting provider notified?: Yes Primary care physician: Jesse Amor Hospital Course: Chief Complaint: Lower GI bleed Hospital course: This is a very pleasant 89-year-old patient who follows with visiting physicians Dr. Amor. Chronic stable medical conditions include congestive heart failure with EF of 50%, aortic stenosis, mitral regurgitation, mitral stenosis, tricuspid regurgitation, secondary probably hypertension, diabetes, hypertension, osteoarthritis, hypothyroid, blind left eye, coronary artery disease, [place] filter.. Patient does use a walker. Patient did have a computed tomography scan of the abdomen on August 30 and did show mass along the lateral wall of the ascending colon and also adjacent soft tissue omental mass and is also another additional mass present in intra-abdominally. Suggestive of metastatic disease. Patient yesterday had some bleeding per the right rectum. And decided to come in. Patient's been having lower abdominal discomfort. She was admitted to the ER. Patient normally does use a walker. Lives alone. Colonoscopy done on September 07 shows ascending colon mass and AV malformation was some slight bleeding. On September 10 patient underwent surgical intervention to include right hemicolectomy, resection of transverse mesocolon tomor, small bowel resection from distal jejunum to ileum over 2 feet, repair of incisional hernia, lysis of adhesions. Patient was extubated on September 12. On TPN. Abdominal incision wound VAC.patient is doing okay. Did tolerate some diet. Gets easily short winded. Patient seemed rather reluctant to proceed with any further treatment but will discuss it with oncology. Discussed with patient today. Spoke to Maura from surgery okay to DC to ECF.discussed with Dr. Franklin. Okay to DC antibiotics. Discussion and discharge planning more than 35 minutes consultants: Dr. duran from ID Dr. العلي at all from nephrology Dr. Parkinson from general surgery Dr. Lugo at all from critical care Physical examination: VITAL SIGNS: 98.3, 113, 22, 122/55, 94% on 3 L GENERAL: sitting up in a recliner, tired EYES: Pupils equal. Conjunctiva pale HEENT: External appearance of nose and ears normal, oral cavity grossly normal. NECK: JVD not raised; masses not palpable. HEART: First and second heart sounds are normal; no edema. LUNGS: Respiratory rate normal; decreased breath sounds. ABDOMEN: Some tenderness, dressing over the wound, bowel sounds sluggish, mild tenderness no guarding or rigidity. PSYCH: Alert and oriented x3; mood and affect normal. 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 -Normocytic anemia suspected from chronic disease of malignancy -Diabetes mellitus type 2 -Essential hypertension -Primary osteoarthritis -Chronic gout -Macular degeneration of right eye -Colonic diverticulosis -obstructive sleep apnea did use CPAP machine in the past -Acute kidney injury, could be ATN multifactorial, improving -No code disposition: [facility] Patient Condition at Discharge: Undetermined Plan - Discharge Summary Discharge Rx Participant: No New Discharge Prescriptions: No Action Carvedilol [Coreg] 3.125 mg PO BID Allopurinol 100 mg PO BID Levothyroxine Sodium [Synthroid] 75 mcg PO DAILY Insulin Lispro [humaLOG Kwikpen] 5 unit SQ AC-BID Spironolactone [Aldactone] 25 mg PO BID Potassium Chloride ER [K-Dur 10] 10 meq PO BID Insulin Detemir (Levemir) [Levemir] 20 unit SQ AC-BRKFST Furosemide [Lasix] 80 mg PO BID Naproxen Sodium [Aleve] 440 mg PO Q12HR PRN PRN Reason: Pain Sodium Bicarbonate Tab 650 mg PO BID Meclizine HCl 12.5 mg PO TID PRN PRN Reason: NAUSEA AND DIZZINESS Discharge Medication List Carvedilol [Coreg] 3.125 mg PO BID 03/25/14 [History] Allopurinol 100 mg PO BID 03/07/15 [History] Levothyroxine Sodium [Synthroid] 75 mcg PO DAILY 11/03/17 [History] Insulin Lispro [humaLOG Kwikpen] 5 unit SQ AC-BID 12/29/17 [History] Furosemide [Lasix] 80 mg PO BID 05/21/19 [History] Insulin Detemir (Levemir) [Levemir] 20 unit SQ AC-BRKFST 05/21/19 [History] Potassium Chloride ER [K-Dur 10] 10 meq PO BID 05/21/19 [History] Spironolactone [Aldactone] 25 mg PO BID 05/21/19 [History] Meclizine HCl 12.5 mg PO TID PRN 09/05/19 [History] Naproxen Sodium [Aleve] 440 mg PO Q12HR PRN 09/05/19 [History] Sodium Bicarbonate Tab 650 mg PO BID 09/05/19 [History] Follow up Appointment(s)/Referral(s): Adair العراقي MD [STAFF PHYSICIAN] - 6 Weeks (Please call for appt if interested in discussing treatment ) Jesse Amor MD [Primary Care Provider] - 1-2 days [facility] Visiting Nurse, [NON-STAFF] - 1 Week
[2019-09-19 13:18] VITALS: PULSE 96
--- NOTE | 2019-09-19 13:19 | PN ---
PROGRESS NOTE DATE OF SERVICE: 09/19/2019 REASON FOR FOLLOWUP: Leukocytosis. INTERVAL HISTORY: The patient is currently afebrile. The patient has been breathing comfortably. Patient denies having any chest pain. Occasional cough. Abdominal pain is currently controlled. No nausea, no vomiting. PHYSICAL EXAMINATION: Blood pressure 122/55 with a pulse of 108, temperature 98.3. She is 94% on 3 L nasal cannula. General description is an elderly female up in the chair in no distress. RESPIRATORY SYSTEM: Unlabored breathing with decreased breath sounds at the bases. No wheeze. HEART: S1, S2. Regular rate and rhythm. ABDOMEN: Soft. LABS: Creatinine 1.49. No CBC was done today. DIAGNOSTIC IMPRESSION AND PLAN: Patient with leukocytosis more likely reactive. This patient did have extensive abdominal surgery without evidence of any perforation. Abdominal cultures were negative. The patient's white count initially improved, subsequently went up more likely secondary to the right which will be discontinued. The patient will be monitored closely off antibiotics. Discussed with the admitting physician working on the discharge. MMODL / IJN: [id number] /
--- NOTE | 2019-09-19 13:20 | P.PN ---
<Maura Villanueva A - Last Filed: 09/19/19 13:19> Subjective Progress Note Date: 09/19/19 CHIEF COMPLAINT: Abdominal pain HISTORY OF PRESENT ILLNESS: Patient is status post exploratory laparotomy with resection of right colon for over 10 cm lesion with invasion to abdominal wall i ncluding small bowel resection for small bowel obstruction performed on 09/10/2019. Patient examined at the bedside. Abdominal pain is tolerable. Tolerating diet. No nausea or vomiting. PHYSICAL EXAM: VITAL SIGNS: Reviewed GENERAL: Well-developed in no acute distress. HEENT: No sclera icterus. Extraocular movements grossly intact. Moist buccal mucosa. Head is atraumatic, normocephalic. Hears conversational speech. No nasal drainage. NECK: Supple without lymphadenopathy. CHEST: Non-labored respirations and equal bilateral excursions. CARDIOVASCULAR: Regular rate with regular rhythm. Palpable 2+ radial pulses. ABDOMEN: Soft. Midline dressing intact with PREVENA. DEEDEE drain with minimal serosanguineous drainage MUSCULOSKELETAL: No clubbing or cyanosis NEUROLOGIC: No focal or lateralizing signs. Cranial nerves II through XII grossly intact. PSYCH: Appropriate affect. Alert and oriented to person, place and time. SKIN: Well perfused. Good skin turgor. ASSESSMENT: 1. Ascending colon cancer, recurrent metastatic 2. Rectal bleeding PLAN: Continue diet as tolerated Wean off TPN Prevena DC. Optifoam ordered Nursing to DC DEEDEE drain Stable for discharge today from a surgical standpoint Nurse practitioner note has been reviewed by physician. Signing provider agrees with the documented findings, assessment, and plan of care. Objective - Vital Signs Vital signs: Vital Signs Temp 98.3 F 09/19/19 11:22 Pulse 96 09/19/19 13:17 Resp 22 09/19/19 11:22 BP 122/55 09/19/19 11:22 Pulse Ox 94 L 09/19/19 11:22 Intake & Output 09/18/19 09/19/19 09/19/19 18:59 06:59 18:59 Intake Total 1261 860 Output Total 877 5447 790 Balance 187 -175 -243 Weight 95 kg Intake: IV 150 Fat Emulsion 20% 250 ml @ 150 21 mls/hr IV Q24H [facility] Rx #:[id number] Intake, IV Titration 1111 200 Amount Mvi, Adult No.4 with Vit 1011 K 10 ml Trace (Conc-1Ml/ Dose) 1 ml In Amino Acid 4.25%-D10w+Lytes*E* 1,000 ml @ 80 mls/hr IV .BY DURATION [facility] Rx#: [id number] Piperacillin-Tazobactam 3 100 200 .375 gm In Sodium Chloride 0.9% 100 ml @ 25 mls/hr IVPB Q8HR [facility] Rx# :[id number] Oral 60 TPN/PPN 600 metroNIDAZOLE-NS PMX 500 300 mg In Saline 1 100ml.bag @ 100 mls/hr IVPB Q8HR [facility] Rx#:[id number] pressure bag 300 Output: Drainage 6 2 Left Lower Abdomen 6 2 Urine 650 650 790 Uretheral (Quan) 790 Stool 300 600 Other: Voiding Method Indwelling Catheter Indwelling Catheter # Voids 1 1 # Bowel Movements 1 1 ABP, PAP, CO, CI - Last Documented Arterial Blood Pressure 105/49 - Labs CBC & Chem 7: 09/17/19 07:05 09/19/19 06:10 Labs: Abnormal Lab Results - Last 24 Hours (Table) 09/18/19 09/18/19 09/19/19 Range/Units 16:48 20:18 06:10 BUN 56 H (7-17) mg/dL Creatinine 1.49 H (0.52-1.04) mg/dL Glucose 183 H (74-99) mg/dL POC Glucose (mg/dL) 164 H 228 H (75-99) mg/dL 09/19/19 09/19/19 Range/Units 07:06 11:11 BUN (7-17) mg/dL Creatinine (0.52-1.04) mg/dL Glucose (74-99) mg/dL POC Glucose (mg/dL) 190 H 208 H (75-99) mg/dL <Kassie Parkinson N - Last Filed: 10/01/19 18:20> Subjective As above. Recommend rehab assessment. Objective - Vital Signs Vital signs: Vital Signs Temp 98.3 F 09/19/19 11:22 Pulse 96 09/19/19 13:17 Resp 22 09/19/19 11:22 BP 122/55 09/19/19 11:22 Pulse Ox 94 L 09/19/19 11:22 ABP, PAP, CO, CI - Last Documented Arterial Blood Pressure 105/49 - Labs CBC & Chem 7: 09/17/19 07:05 09/19/19 06:10 Assessment and Plan (1) Abdominal mass Status: Acute Priority: High Code(s): R19.00 - INTRA-ABD AND PELVIC SWELLING, MASS AND LUMP, UNSP SITE SNOMED Code(s): 889415318 (2) GI bleed Status: Acute Priority: High Code(s): K92.2 - GASTROINTESTINAL HEMORRHAGE, UNSPECIFIED SNOMED Code(s): 10552118 (3) History of colon cancer Status: Acute Code(s): Z85.038 - PERSONAL HISTORY OF MALIGNANT NEOPLASM OF LARGE INTESTINE SNOMED Code(s): 379331574 (4) Anemia Status: Chronic Priority: Medium Code(s): D64.9 - ANEMIA, UNSPECIFIED SNOMED Code(s): 273032455 (5) Aortic stenosis Status: Acute Code(s): I35.0 - NONRHEUMATIC AORTIC (VALVE) STENOSIS SNOMED Code(s): 42697882 (6) Atrial fibrillation Status: Acute Code(s): I48.91 - UNSPECIFIED ATRIAL FIBRILLATION SNOMED Code(s): 75052851 (7) Atrial flutter Status: Acute Code(s): I48.92 - UNSPECIFIED ATRIAL FLUTTER SNOMED Code(s): 9246842 (8) Diastolic CHF, acute on chronic Status: Acute Code(s): I50.33 - ACUTE ON CHRONIC DIASTOLIC (CONGESTIVE) HEART FAILURE SNOMED Code(s): 301765199 (9) Systolic congestive heart failure Status: Acute Code(s): I50.20 - UNSPECIFIED SYSTOLIC (CONGESTIVE) HEART FAILURE SNOMED Code(s): 39579644 (10) Cancer of ascending colon metastatic to intra-abdominal lymph node Status: Acute Code(s): C18.2 - MALIGNANT NEOPLASM OF ASCENDING COLON; C77.2 - SECONDARY AND UNSP MALIGNANT NEOPLASM OF INTRA-ABD NODES SNOMED Code(s): 21359558
--- NOTE | 2019-09-19 14:59 | P.PN ---
Subjective Progress Note Date: 09/19/19 Principal diagnosis: colonic mass, status post exploratory laparotomy with lysis of adhesions, right hemicolectomy, transverse colon resection, hernia repair small bowel resection Rectal bleeding secondary to invading colon mass. Status post exploratory laparotomy with lysis of adhesions, extensive right hemicolectomy, resection transverse colon, small bowel resection, repair of incisional hernia, placement of incisional wound Prevena system. The patient is seen today 09/16/2019 in follow-up on the regular medical floor. She is currently resting in bed. Awake and alert in no acute distress. Her pain is currently fairly well controlled. She is still quite weak. No worsening shortness of breath, cough or congestion. She is maintaining O2 saturations in the low 90s on 3 L/m per nasal cannula. Afebrile. Urine culture reveals no growth. Sputum culture reveals no growth. Peritoneal fluid revealing no growth. White count 12.7. Hemoglobin 8.2. Platelet count 137,000. Sodium 137. Potassium 4.0. Creatinine 1.37. She is continued on TPN and lipids. She remains on bronchodilators, IV diuretics, antibiotics in the form of Zosyn along with Flagyl. Currently in a negative balance. She does have continued anasarca. The patient is seen today 09/17/2019 in follow-up on the regular medical floor. She is doing a bit better today. Currently sitting up in a chair at the bedside. More awake and alert. Maintaining O2 saturations in the low 90s on 3 L/m per nasal cannula. She's afebrile. Hemodynamically stable. Sputum culture reveals no growth. Urine culture reveals no growth. Peritoneal fluid reveals no growth. White count 13.6. Hemoglobin 8.3. Creatinine 1.23. The patient is seen today 09/18/2019 in follow-up on the regular medical floor. She is currently sitting up at the bedside. Awake and alert in no acute distress. Currently maintaining O2 saturations in the mid 90s on 3 L/m per nasal cannula. She's been afebrile. Urine, sputum and peritoneal fluid cultures all reveal no growth. Sodium 138. Potassium 3.8. BUN 54. Creatinine 1.41. Receiving TPN and lipids for nutritional support. Remains on IV diuretics. Continued on bronchodilators and IV Zosyn. On 09/19/2019 patient seen in follow-up and regular medical surgical floor, she is doing well, sitting up in the chair, and 3 L of oxygen with a pulse ox of 94%, she is afebrile, hemodynamically stable, she states she is feeling fatigued, but overall denies any acute distress, no nausea, no vomiting, no abdominal pain, patient is tolerating consistent carb diet, remains on IV Lasix, 40 mg every 8 hours, and generalized edema is improving. patient remains on Flagyl, and Zosyn. she is working on incentive spirometer, her pain is controlled, patient is anticipated to go to acute rehab today, today's labs have been reviewed, electrolytes are within normal limits, B1 is 66, creatinine is 1.49. Objective - Vital Signs Vital signs: Vital Signs Temp 98.3 F 09/19/19 11:22 Pulse 96 09/19/19 13:17 Resp 22 09/19/19 11:22 BP 122/55 09/19/19 11:22 Pulse Ox 94 L 09/19/19 11:22 Intake & Output 09/18/19 09/19/19 09/19/19 18:59 06:59 18:59 Intake Total 1261 860 950 Output Total 956 1252 790 Balance 305 -392 160 Weight 95 kg Intake: IV 150 Fat Emulsion 20% 250 ml @ 150 21 mls/hr IV Q24H [facility] Rx #:[id number] Intake, IV Titration 1111 200 300 Amount Fat Emulsion 20% 250 ml @ 200 21 mls/hr IV Q24H [facility] Rx #:[id number] Mvi, Adult No.4 with Vit 1011 K 10 ml Trace (Conc-1Ml/ Dose) 1 ml In Amino Acid 4.25%-D10w+Lytes*E* 1,000 ml @ 80 mls/hr IV .BY DURATION [facility] Rx#: [id number] Piperacillin-Tazobactam 3 100 200 100 .375 gm In Sodium Chloride 0.9% 100 ml @ 25 mls/hr IVPB Q8HR [facility] Rx# :[id number] Oral 60 650 TPN/PPN 600 metroNIDAZOLE-NS PMX 500 300 mg In Saline 1 100ml.bag @ 100 mls/hr IVPB Q8HR [facility] Rx#:[id number] pressure bag 300 Output: Drainage 6 2 0 Left Lower Abdomen 6 2 0 Urine 650 650 790 Uretheral (Quan) 790 Stool 300 600 Other: Voiding Method Indwelling Catheter Indwelling Catheter Indwelling Catheter # Voids 1 1 # Bowel Movements 1 1 ABP, PAP, CO, CI - Last Documented Arterial Blood Pressure 105/49 - Exam GENERAL EXAM: Alert, very pleasant, 89-year-old white female,3 L of oxygen and the pulse ox of 94%, comfortable in no apparent distress. HEAD: Normocephalic/atraumatic. EYES: Normal reaction of pupils, equal size. Conjunctiva pink, sclera white. NOSE: Clear with pink turbinates. THROAT: No erythema or exudates. NECK: No masses, no JVD, no thyroid enlargement, no adenopathy. CHEST: No chest wall deformity. Symmetrical expansion. LUNGS: Equal air entry with no crackles, wheeze, rhonchi or dullness. CVS: Regular rate and rhythm, normal S1 and S2, no gallops, no murmurs, no rubs ABDOMEN: Soft, nontender. No hepatosplenomegaly, normal bowel sounds, no guarding or rigidity. abdominal incision is clean dry and intact, left lower quadrant DEEDEE drain minimal amount of serosanguineous drainage EXTREMITIES: No clubbing, 1+ lower and upper extremity edema, no cyanosis, 2+ pulses and upper and lower extremities. MUSCULOSKELETAL: Muscle strength and tone normal. SPINE: No scoliosis or deformity SKIN: No rashes CENTRAL NERVOUS SYSTEM: Alert and oriented -3. No focal deficits, tone is normal in all 4 extremities. PSYCHIATRIC: Alert and oriented -3. Appropriate affect. Intact judgment and insight. - Labs CBC & Chem 7: 09/17/19 07:05 09/19/19 06:10 Labs: Abnormal Lab Results - Last 24 Hours (Table) 09/18/19 09/18/19 09/19/19 Range/Units 16:48 20:18 06:10 BUN 56 H (7-17) mg/dL Creatinine 1.49 H (0.52-1.04) mg/dL Glucose 183 H (74-99) mg/dL POC Glucose (mg/dL) 164 H 228 H (75-99) mg/dL 09/19/19 09/19/19 Range/Units 07:06 11:11 BUN (7-17) mg/dL Creatinine (0.52-1.04) mg/dL Glucose (74-99) mg/dL POC Glucose (mg/dL) 190 H 208 H (75-99) mg/dL Assessment and Plan Plan: assessment: #1 Colonic mass status post exploratory laparotomy with lysis of adhesions, right hemicolectomy, transverse colon resection, hernia repair, small bowel resection, placement of preventive wound VAC. Postoperative day #9. Biopsies positive for poorly differentiated adenocarcinoma. #2 Postoperative respiratory failure with routine postoperative ventilator management successfully extubated on 09/12/2019. Currently on 3 L/m per nasal cannula. #3 History of GI bleed. #4 Chronic iron deficiency anemia. #5 Ischemic cardiomyopathy. #6 Diastolic congestive heart failure. #7 History of atrial fibrillation. #8 History of pulmonary embolism, status post Briseyda filter placement #9 Sleep apnea syndrome. #10 Diabetes mellitus, type II. #11 Diabetic neuropathy. #12 Hypertension. 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 #14 History of depression. #15 History of gout. #16 Status post permanent pacemaker implantation. #17 Hypothyroidism. plan: Patient is doing well, continue encouraging deep breathing and coughing, no acute issues overnight, pain is controlled, generalized edema is improving, continue with diuretics, increase activity as tolerated, patient is being discharged to subacute rehab today. Stable for discharge to rehab from pulmonary perspective, Dr. Finney in the office in one or 2 weeks I performed a history & physical examination of the patient and discussed their management with my nurse practitioner, Melissa Madison. I reviewed the nurse practitioner's note and agree with the documented findings and plan of care. Lung sounds are positive for diminished breath sounds throughout the lung nicolas. The findings and the impression was discussed with the patient. I attest to the documentation by the nurse practitioner. Time with Patient: Less than 30
--- NOTE | 2019-09-21 12:10 | CDI ---
Documentation Clarification Form Date: 09/21/19 From: Nelsy Hidalgo Phone: If you have a question about this query, please contact Rachael Long, Marketing Communications Leader at [phone] between 8am and 5pm. Admit Date: 09/05/19 Discharge Date: 09/19/19 Patient Name: Libertad Callaway Visit Number: [id number] ATTENTION: The Clinical Documentation Specialists (CDI) and [facility] Coding Staff appreciate your assistance in clarifying documentation. Please respond to the clarification below the line at the bottom and electronically sign. The CDI & [facility] Coding staff will review the response and follow-up if needed. Please note: Queries are made part of the Legal Health Record. If you have any questions, please contact the author of this message via ITS. Dear Dr. Rob Sam, Atrial Flutter is documented in 5 PNs (09/11, 09/12, 09/13, 09/15 & 09/16). History/Risk factors: Ascending/transverse cancer, mets to intra-abd LNs, mets to peritoneal,ac on chr diastolic CHF, ATN, Clinical Indicators: Developed atrial fibrillation during surgery on 09/10. 09/11 PN states patient had atrial flutter. EKG/telemetry: Per surgery atrial fibrillation Treatment: Cardioverted at the end of surgery, In your professional opinion, in order to capture the severity of condition; can you please clarify the type of Atrial Flutter if known? Typical/Type I Atypical/Type II Other, please specify Unable to determine Unable to determine MTDD
== END 2019-09-19 16:16 | DRG 329 ==
LOC: EC 13:30 → 3NMEDONC 15:52 → 2SICU 09-10 18:29 → 3NMEDONC 09-15 14:13 → 5NMEDONC 09-18 07:24
PROVIDERS: ADMIT Hospitalist; ATTEND Hospitalist
PROC: 0DBK8ZX Excision of Ascending Colon, Via Natural or Artificial Opening Endoscopic, Diagnostic (ICD-10-PCS; 2019-09-07)
PROC: 0DNE0ZZ Release Large Intestine, Open Approach (ICD-10-PCS; 2019-09-10)
PROC: 0DN80ZZ Release Small Intestine, Open Approach (ICD-10-PCS; 2019-09-10)
PROC: 0WQF0ZZ Repair Abdominal Wall, Open Approach (ICD-10-PCS; 2019-09-10)
PROC: 0DQV0ZZ Repair Mesentery, Open Approach (ICD-10-PCS; 2019-09-10)
PROC: 0DBB0ZX Excision of Ileum, Open Approach, Diagnostic (ICD-10-PCS; 2019-09-10)
PROC: 0DBA0ZX Excision of Jejunum, Open Approach, Diagnostic (ICD-10-PCS; 2019-09-10)
PROC: 0DBL0ZX Excision of Transverse Colon, Open Approach, Diagnostic (ICD-10-PCS; 2019-09-10)
PROC: 03HY32Z Insertion of Monitoring Device into Upper Artery, Percutaneous Approach (ICD-10-PCS; 2019-09-10)
PROC: 4A133B1 Monitoring of Arterial Pressure, Peripheral, Percutaneous Approach (ICD-10-PCS; 2019-09-10)
PROC: 4A133J1 Monitoring of Arterial Pulse, Peripheral, Percutaneous Approach (ICD-10-PCS; 2019-09-10)
PROC: 0D9670Z Drainage of Stomach with Drainage Device, Via Natural or Artificial Opening (ICD-10-PCS; 2019-09-10)
PROC: 0DTF0ZZ Resection of Right Large Intestine, Open Approach (ICD-10-PCS; principal; 2019-09-10 10:45)
PROC: 02HV33Z Insertion of Infusion Device into Superior Vena Cava, Percutaneous Approach (ICD-10-PCS; 2019-09-11)
PROC: 3E0336Z Introduction of Nutritional Substance into Peripheral Vein, Percutaneous Approach (ICD-10-PCS; 2019-09-11)
DX: C18.2 Malignant neoplasm of ascending colon (principal); R57.1 Hypovolemic shock; N17.0 Acute kidney failure with tubular necrosis; I50.33 Acute on chronic diastolic (congestive) heart failure; J96.01 Acute respiratory failure with hypoxia; C77.2 Secondary and unspecified malignant neoplasm of intra-abdominal lymph nodes; I13.0 Hypertensive heart and chronic kidney disease with heart failure and stage 1 through stage 4 chronic kidney disease, or unspecified chronic kidney disease; E87.4 Mixed disorder of acid-base balance; K46.0 Unspecified abdominal hernia with obstruction, without gangrene; C78.6 Secondary malignant neoplasm of retroperitoneum and peritoneum; C18.4 Malignant neoplasm of transverse colon; K92.1 Melena; J98.11 Atelectasis; R18.8 Other ascites; I48.92 Unspecified atrial flutter; Z66 Do not resuscitate; I27.20 Pulmonary hypertension, unspecified; D63.1 Anemia in chronic kidney disease; N18.3 Chronic kidney disease, stage 3 (moderate); E11.22 Type 2 diabetes mellitus with diabetic chronic kidney disease; E11.40 Type 2 diabetes mellitus with diabetic neuropathy, unspecified; K66.0 Peritoneal adhesions (postprocedural) (postinfection); Q27.33 Arteriovenous malformation of digestive system vessel; I48.91 Unspecified atrial fibrillation; E87.6 Hypokalemia; K43.2 Incisional hernia without obstruction or gangrene; D12.4 Benign neoplasm of descending colon; D63.0 Anemia in neoplastic disease; K21.9 Gastro-esophageal reflux disease without esophagitis; I25.5 Ischemic cardiomyopathy; K64.8 Other hemorrhoids; D50.0 Iron deficiency anemia secondary to blood loss (chronic); E03.9 Hypothyroidism, unspecified; E78.5 Hyperlipidemia, unspecified; I08.3 Combined rheumatic disorders of mitral, aortic and tricuspid valves; G47.33 Obstructive sleep apnea (adult) (pediatric); K57.30 Diverticulosis of large intestine without perforation or abscess without bleeding; D72.829 Elevated white blood cell count, unspecified; I25.10 Atherosclerotic heart disease of native coronary artery without angina pectoris; M19.91 Primary osteoarthritis, unspecified site; G89.29 Other chronic pain; M25.551 Pain in right hip; M54.9 Dorsalgia, unspecified; H40.9 Unspecified glaucoma; M1A.9XX0 Chronic gout, unspecified, without tophus (tophi); H35.30 Unspecified macular degeneration; H54.62 Unqualified visual loss, left eye, normal vision right eye; E66.9 Obesity, unspecified; Z68.35 Body mass index [BMI] 35.0-35.9, adult; Z71.3 Dietary counseling and surveillance; Z79.4 Long term (current) use of insulin; Z79.890 Hormone replacement therapy; Z79.899 Other long term (current) drug therapy; Z87.891 Personal history of nicotine dependence; Z95.1 Presence of aortocoronary bypass graft; Z87.01 Personal history of pneumonia (recurrent); Z86.711 Personal history of pulmonary embolism; Z99.89 Dependence on other enabling machines and devices; Z85.828 Personal history of other malignant neoplasm of skin; Z98.890 Other specified postprocedural states; Z90.49 Acquired absence of other specified parts of digestive tract; Z95.0 Presence of cardiac pacemaker; Z90.710 Acquired absence of both cervix and uterus; Z86.010 Personal history of colon polyps; Z95.3 Presence of xenogenic heart valve; Z95.828 Presence of other vascular implants and grafts; Z86.59 Personal history of other mental and behavioral disorders; Z86.718 Personal history of other venous thrombosis and embolism; Z88.8 Allergy status to other drugs, medicaments and biological substances; Z88.6 Allergy status to analgesic agent; Z91.030 Bee allergy status; Z81.8 Family history of other mental and behavioral disorders; Z83.3 Family history of diabetes mellitus; Z82.49 Family history of ischemic heart disease and other diseases of the circulatory system; Z81.1 Family history of alcohol abuse and dependence; Z80.0 Family history of malignant neoplasm of digestive organs
CPT/HCPCS: 36415; 45381; 45385; 71045; 74176; 80048; 80053; 81001; 82040; 82105; 82330; 82378; 82607; 82728; 82747; 82805; 83540; 83550; 83735; 84100; 84132; 84478; 85025; 85027; 85610; 85730; 86304; 86850; 86900; 86901; 87070; 87086; 87205; 88305; 88307; 88309; 94002; 94003; 94640; 94760; 96360; 96361; 99285